=== PATIENT | male | born 1935 | race Caucasian/White ===

== ENCOUNTER 2016-11-03 12:45 | Inpatient (IN) | payer OTHER ==
[2016-11-03 12:57] VITALS: BMI 25.9
--- NOTE | 2016-11-03 13:12 | PDOC ---
History of Present Illness <Matthew Hawk - Last Filed: 11/03/16 16:28> - General History Source: Patient, Spouse Exam Limitations: No Limitations - History of Present Illness Initial Comments: 11/03/16 15:07 The patient is a 81 year old male, with a significant past medical history of hypertension, hyperlipidemia, IDDM, liver cancer(Chemo, 40% liver removed in 2008), CVA, CAD, Quadruple Bypass, and A-Fib(on Xarelto), who presents to the emergency department complaining of melena for approximately 1 week. The patient reports constipation for approximately 2 days. He reports taking a laxative with no relief. The patient reports his last bowel movement was this morning, which was black and tarry. The patient reports associated decrease in appetite, grogginess, and dizziness. 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 The patient reports he has stopped taking Xarelto during the past 2 days due to rectal bleeding. Patient states he was sent by his PCP, Dr. Borges, for a blood transfusion. He reports a history of a blood transfusion 2-3 years ago. The patient denies any abdominal pain, nausea, vomiting, hematochezia or diarrhea. The patient denies any dysuria, hematuria, frequency, or urgency. The patient denies any fever, chills, cough, or headache. The patient denies any recent travel or sick contacts. Allergies: None reported. Past Surgical History: Quadruple bypass, 40% Liver removal Social History: Non-smoker. Denies alcohol or drug use. PCP: Katerina <Harley Aldana - Last Filed: 11/03/16 17:10> - General Chief Complaint: Blood Transfusion Stated Complaint: (PCP SENT) TRANFUSION Time Seen by Provider: 11/03/16 13:10 Past History - Past Medical History Anemia: No Asthma: No Cancer: Yes (LIVER, CHEMO (PILLS)ABDOMEN) Cardiac Disorders: Yes (CAD; QUADRUP BYPASS; A-FIB) CVA: Yes (MINI TIMES ONE) COPD: No CHF: No Dementia: No Diabetes: Yes (IDDM) GI Disorders: No Disorders: No HTN: Yes Hypercholesterolemia: Yes Liver Disease: Yes (LIVER CA) Seizures: No Thyroid Disease: No - Surgical History Abdominal Surgery: Yes (40% LIVER REMOVED 2009, LYMPH NODE REMOVES FOR ABD 2 WKS AGO) Appendectomy: No Cardiac Surgery: Yes (QUADRUP. BYPASS) Cholecystectomy: Yes (NOT SURE) Lung Surgery: No Neurologic Surgery: No Orthopedic Surgery: No - Psycho/Social/Smoking Cessation Hx Anxiety: No Suicidal Ideation: No Smoking History: Never smoked Have you smoked in the past 12 months: No Information on smoking cessation initiated: No Hx Alcohol Use: No Drug/Substance Use Hx: No Substance Use Type: None Hx Substance Use Treatment: No <Matthew Hawk - Last Filed: 11/03/16 16:28> <Harley Aldana - Last Filed: 11/03/16 17:10> - Past Medical History Allergies/Adverse Reactions: Allergies Allergy/AdvReac Type Severity Reaction Status Date / Time No Known Drug Allergies Allergy Verified 11/03/16 12:54 Home Medications: Ambulatory Orders Carvedilol [Coreg -] 12.5 mg PO BID 11/03/16 Hydralazine HCl [Apresoline -] 10 mg PO BID 11/03/16 Insulin Aspart [Novolog] 8 unit SQ ACHS 11/03/16 Lantus (10mL VIAL) - 12 units SQ HS 11/03/16 Nitroglycerin Patch [Nitro-Dur] 0.4 mg TD DAILY 11/03/16 Olmesartan Medoxomil [Benicar (Nf)] 20 mg PO DAILY 11/03/16 Pantoprazole Sodium [Protonix] 40 mg PO DAILY 11/03/16 Rivaroxaban [Xarelto -] 15 mg PO DAILY 11/03/16 Simvastatin [Zocor] 10 mg PO HS 11/03/16 Review of Systems - Review of Systems Able to Perform ROS?: Yes Comments:: 11/03/16 15:08 GENERAL/CONSTITUTIONAL: Yes:+weakness. No fever or chills. HEAD, EYES, EARS, NOSE AND THROAT: No change in vision. No ear pain or discharge. No sore throat. CARDIOVASCULAR: No chest pain or shortness of breath. RESPIRATORY: No cough, wheezing, or hemoptysis. GASTROINTESTINAL: Yes: +constipation, +melena. No nausea, vomiting, or diarrhea. GENITOURINARY: No dysuria, frequency, or change in urination. MUSCULOSKELETAL: No joint or muscle swelling or pain. No neck or back pain. SKIN: No rash NEUROLOGIC: No headache, vertigo, loss of consciousness, or change in strength/ sensation. ENDOCRINE: No increased thirst. No abnormal weight change. HEMATOLOGIC/LYMPHATIC: No anemia or history of blood clots. ALLERGIC/IMMUNOLOGIC: No hives or skin allergy. <Aldana,Saraivadim - Last Filed: 11/03/16 17:10> *Physical Exam - Vital Signs Last Vital Signs Temp Pulse Resp BP Pulse Ox 98.5 F 58 L 19 136/57 98 11/03/16 12:54 11/03/16 12:54 11/03/16 12:54 11/03/16 12:54 11/03/16 12:54 <Matthew Hawk - Last Filed: 11/03/16 16:28> - Vital Signs Last Vital Signs Temp Pulse Resp BP Pulse Ox 98.5 F 58 L 19 136/57 98 11/03/16 12:54 11/03/16 12:54 11/03/16 12:54 11/03/16 12:54 11/03/16 12:54 - Physical Exam Comments: 11/03/16 15:09 GENERAL: Awake, alert, and fully oriented, in no acute distress HEAD: No signs of trauma EYES: PERRLA, EOMI, sclera anicteric, conjunctiva clear ENT: Auricles normal inspection, hearing grossly normal, nares patent, oropharynx clear without exudates. Moist mucosa NECK: Normal ROM, supple, no lymphadenopathy, JVD, or masses LUNGS: Breath sounds equal, clear to auscultation bilaterally. No wheezes, and no crackles HEART: Regular rate and rhythm, normal S1 and S2, no murmurs, rubs or gallops ABDOMEN: Soft, nontender, normoactive bowel sounds. No guarding, no rebound. No masses RECTUM: Was not done. EXTREMITIES: Normal range of motion, no edema. No clubbing or cyanosis. No cords, erythema, or tenderness NEUROLOGICAL: Cranial nerves II through XII grossly intact. Normal speech, normal gait SKIN: Warm, Dry, normal turgor, no rashes or lesions noted. <AldanaSaraivadim - Last Filed: 11/03/16 17:10> Heart Score/ECG Review - ECG Impressions Comment:: 11/03/16 15:10 Vent. Rate: 65 bpm IMPRESSION: Atrial Fibrillation. Incomplete left bundle branch block. Nonspecific ST and T wave abnormality. <Harley Aldana - Last Filed: 11/03/16 17:10> ED Treatment Course - LABORATORY CBC & Chemistry Diagram: 11/03/16 13:47 11/03/16 13:47 <Matthew Hawk - Last Filed: 11/03/16 16:28> - LABORATORY CBC & Chemistry Diagram: 11/03/16 13:47 11/03/16 13:47 - ADDITIONAL ORDERS Additional order review: Laboratory Results 11/03/16 11/03/16 13:47 13:47 INR 1.19 H Sodium 139 Potassium 4.8 Chloride 107 Carbon Dioxide 24 Anion Gap 8 BUN 50 H D Creatinine 2.0 H D Creat Clearance w eGFR 32.23 Random Glucose 191 H Calcium 8.4 L Total Bilirubin 0.8 D AST 17 D ALT 17 D Alkaline Phosphatase 78 Creatine Kinase 79 Troponin I 1.79 H* D Total Protein 5.4 L Albumin 3.1 L 11/03/16 13:47 RBC 2.45 L MCV 98.5 H MCHC 34.9 RDW 14.0 D MPV 9.3 Neutrophils % 57.7 Lymphocytes % 23.1 Monocytes % 10.3 H Eosinophils % 8.1 H Basophils % 0.8 - RADIOLOGY Radiograph Interpretation: 11/03/16 17:09 EXAM: CXR INTERPRETED BY: Dr. Feliciano REVIEWED BY: Dr. Hawk IMPRESSION: No evidence of pneumonia, CHF, pleural effusion, or pneumothorax. <Harley Aldana - Last Filed: 11/03/16 17:10> Medical Decision Making - Medical Decision Making 11/03/16 15:55 First call placed to Dr. Borges at 15:55. Awaiting call back. Case discussed with Dr. Borges at 16:25. Agreed to admit. <Harley Aldana - Last Filed: 11/03/16 17:10> *DC/Admit/Observation/Transfer - Discharge Dispostion Admit: Yes - Attestations Physician Attestion: 11/03/16 13:11 I, Dr. Matthew Hawk, attest that this document has been prepared under my direction and personally reviewed by me in its entirety. I further attest, that it accurately reflects all work, treatment, procedures and medical decision -making performed by me. <Matthew Hawk - Last Filed: 11/03/16 16:28> - Attestations Scribe Attestion: 11/03/16 15:10 Documentation prepared by Harley Aldana, acting as medical concierge for Matthew Hawk DO. <Harley Aldana - Last Filed: 11/03/16 17:10> Diagnosis at time of Disposition: Asymptomatic myocardial ischemia, Renal insufficiency syndrome GI bleed Qualifiers: GI bleed type/associated pathology: unspecified gastrointestinal hemorrhage type Qualified Code(s): K92.2 - Gastrointestinal hemorrhage, unspecified - Discharge Dispostion Condition at time of disposition: Unchanged/Unknown - Referrals Referrals: Idris Borges MD [Primary Care Provider] -
[2016-11-03 14:19] LABS: BASOPHIL 0.8 % (0-2.0); EOSINOPHIL 8.1 % (0-4.5); MCH 34.4 pg (25.7-33.7); MCHC 34.9 g/dl (32.0-35.9); MEAN CELL VOLUME 98.5 fl (80-96); MEAN PLT VOLUME 9.3 fl (7.5-11.1); NEUTROPHILS 57.7 % (42.8-82.8); PLATELET COUNT 115 K/MM3 (134-434); WHITE BLOOD COUNT 6.2 K/mm3 (4.0-10.0)
[2016-11-03 14:33] LABS: INR 1.19 (0.82-1.09); PROTHROMBIN TIME (PATIENT) 13.1 SEC (9.98-11.88)
[2016-11-03 14:38] LABS: ALBUMIN 3.1 g/dl (3.4-5.0); CALCIUM 8.4 mg/dL (8.5-10.1)
[2016-11-03 14:56] LABS: BILIRUBIN,TOTAL 0.8 mg/dL (0.2-1.0); COCKROFT - GAULT 28.9; TOT PROT 5.4 g/dl (6.4-8.2)
[2016-11-03 14:59] LABS: TROPONIN I 1.79 ng/ml (0.00-0.05)
[2016-11-03] MEDS ORDERED: ACETAMINOPHEN 325 MG TABLET (FP) PO PRN (23:04)
[2016-11-04 02:12] LABS: TROPONIN I 1.54 ng/ml (0.00-0.05)
[2016-11-04] MEDS: INSULIN SLIDING SCALE (NOVOLOG) 1 VIAL SQ SCH ×4 (06:02→20:59)
[2016-11-04 07:28] LABS: BASOPHIL 0.7 % (0-2.0); EOSINOPHIL 8.4 % (0-4.5); MCH 33.4 pg (25.7-33.7); MCHC 35.1 g/dl (32.0-35.9); MEAN CELL VOLUME 95.3 fl (80-96); MEAN PLT VOLUME 9.5 fl (7.5-11.1); NEUTROPHILS 54.4 % (42.8-82.8); PLATELET COUNT 94 K/MM3 (134-434); RDW 15.7 % (11.9-15.9); WHITE BLOOD COUNT 5.4 K/mm3 (4.0-10.0)
[2016-11-04 07:54] LABS: CALCIUM 7.8 mg/dL (8.5-10.1); COCKROFT - GAULT 30.5; CREATININE 1.9 mg/dL (0.7-1.3)
[2016-11-04 08:01] LABS: INR 1.2 (0.82-1.09); PROTHROMBIN TIME (PATIENT) 13.3 SEC (9.98-11.88)
[2016-11-04 08:14] LABS: BILIRUBIN,TOTAL 1.9 mg/dL (0.2-1.0); TOT PROT 5.3 g/dl (6.4-8.2)
[2016-11-04 08:33] LABS: TROPONIN I 0.92 ng/ml (0.00-0.05)
--- NOTE | 2016-11-04 09:05 | HP ---
Admitting History and Physical - Admission History of Present Illness: 81 year old male, with a significant past medical history of hypertension, hyperlipidemia, IDDM, liver cancer(Chemo, 40% liver removed in 2008), CVA, CAD, Quadruple Bypass, and A-Fib(on Xarelto), who presents to the emergency department complaining of melena for approximately 1 week. The patient reports constipation for approximately 2 days. He reports taking a laxative with no relief. The patient reports his last bowel movement was black and tarry. The patient reports associated decrease in appetite, grogginess, and dizziness.Pt was seen in office 2 days ago and he refused admission at which time I stopped Xarelto and bloods drawn--hgb 8.9 then he was sent for a blood transfusion. The patient denies any abdominal pain, nausea, vomiting, hematochezia or diarrhea. The patient denies any dysuria, hematuria, frequency, or urgency. The patient denies any fever, chills, cough, or headache. The patient denies any recent travel or sick contacts. - Past Medical History Cardiovascular: Yes: AFIB, CAD, CHF, HTN, Hyperlipdemia Gastrointestinal: Yes: Cancer (primary liver) Hepatobiliary: Yes: Other (primary liver cancer s/p resection and now recurr in lymph nodes on chemo (nexavar)) Renal/: Yes: Renal Inusuff Endocrine: Yes: Diabetes Mellitus (insulin dependent) - Past Surgical History Past Surgical History: Yes: CABG (partial liver resection) - Smoking History Smoking history: Never smoked Have you smoked in the past 12 months: No - Alcohol/Substance Use Hx Alcohol Use: No Home Medications - Allergies Allergies/Adverse Reactions: Allergies Allergy/AdvReac Type Severity Reaction Status Date / Time No Known Drug Allergies Allergy Verified 11/03/16 12:54 - Home Medications Home Medications: Ambulatory Orders Carvedilol [Coreg -] 12.5 mg PO BID 11/03/16 Hydralazine HCl [Apresoline -] 10 mg PO BID 11/03/16 Insulin Aspart [Novolog] 8 unit SQ ACHS 11/03/16 Lantus (10mL VIAL) - 12 units SQ HS 11/03/16 Nitroglycerin Patch [Nitro-Dur] 0.4 mg TD DAILY 11/03/16 Olmesartan Medoxomil [Benicar (Nf)] 20 mg PO DAILY 11/03/16 Pantoprazole Sodium [Protonix] 40 mg PO DAILY 11/03/16 Rivaroxaban [Xarelto -] 15 mg PO DAILY 11/03/16 Simvastatin [Zocor] 10 mg PO HS 11/03/16 Review of Systems - Review of Systems Constitutional: reports: Weakness Cardiovascular: denies: Chest Pain, Edema Respiratory: reports: SOB on Exertion Gastrointestinal: reports: Constipation, Melena. denies: Vomiting Physical Examination Vital Signs: Vital Signs Temperature 97.7 F 11/04/16 07:00 Pulse Rate 63 11/04/16 07:00 Respiratory Rate 20 11/04/16 07:00 Blood Pressure 158/60 11/04/16 07:00 O2 Sat by Pulse Oximetry (%) 98 11/03/16 23:04 Cardiovascular: Yes: S1, S2 Respiratory: Yes: Regular, CTA Bilaterally Gastrointestinal: Yes: Normal Bowel Sounds, Soft, Melena (HEM POSITIVE). No: Tenderness Labs: CBC, BMP 11/04/16 06:20 11/04/16 06:20 Problem List - Problems (1) Upper GI bleeding Assessment/Plan: OFF AC GI CONSULT PPI Code(s): K92.2 - GASTROINTESTINAL HEMORRHAGE, UNSPECIFIED (2) Asymptomatic myocardial ischemia Assessment/Plan: TROP TRENDING DOWN CARDIO Code(s): I25.6 - SILENT MYOCARDIAL ISCHEMIA (3) Renal insufficiency syndrome Assessment/Plan: MONITOR Code(s): N28.9 - DISORDER OF KIDNEY AND URETER, UNSPECIFIED (4) Anemia Assessment/Plan: S/P PRBC FOLLOW CBC Code(s): D64.9 - ANEMIA, UNSPECIFIED (5) Afib Assessment/Plan: HOLD AC Code(s): I48.91 - UNSPECIFIED ATRIAL FIBRILLATION
[2016-11-04] MEDS ORDERED: PANTOPRAZOLE 40 MG TABLET (FP) PO SCH ×2 (10:00→22:00)
[2016-11-04] MEDS: CARVEDILOL 12.5 MG TABLET (FP) PO SCH ×2 (10:46→20:59)
[2016-11-04] MEDS: hydrALAZINE HCL 10 MG TABLET PO SCH ×2 (10:46→20:59)
[2016-11-04] MEDS: VALSARTAN 160 MG TABLET (UD) PO SCH (10:46)
--- NOTE | 2016-11-04 12:54 | CON.CARD ---
Cardiology Consult (text) - Consultation Consultation Note: CC: melena 81 yo with h/o CAD s/p CABG, afib on xarelto (recently held for melena and anemia), CVA, hypertension, hyperlipidemia, IDDM, liver cancer(Chemo, 40% liver removed in 2008), who p/w melena for approximately 1 week. black and tarry stool. Associated decrease in appetite, grogginess, and dizziness. Stopped taking Xarelto during the past 2 days due to rectal bleeding. no cp, palps, sob, orthopnea, pnd, dizziness, transient neurologic symptoms. Le edema at baseline. does not recall having prior anginal symptoms. patient denies any abdominal pain, nausea, vomiting, fever, chills, sweats, cough, rashes, visual disturbances or headache. PMHx: per hpi Past Surgical History: Quadruple bypass, 40% Liver removal Social History: Never smoker. Denies alcohol or drug use. family hx: no premature cad. ROS: per hpi Ambulatory Orders Carvedilol [Coreg -] 12.5 mg PO BID 11/03/16 Hydralazine HCl [Apresoline -] 10 mg PO BID 11/03/16 Insulin Aspart [Novolog] 8 unit SQ ACHS 11/03/16 Lantus (10mL VIAL) - 12 units SQ 11/03/16 Nitroglycerin Patch [Nitro-Dur] 0.4 mg TD DAILY 11/03/16 Olmesartan Medoxomil [Benicar (Nf)] 20 mg PO DAILY 11/03/16 Pantoprazole Sodium [Protonix] 40 mg PO DAILY 11/03/16 Rivaroxaban [Xarelto -] 15 mg PO DAILY 11/03/16 Simvastatin [Zocor] 10 mg PO HS 11/03/16 Current Medications Acetaminophen (Tylenol -) 650 mg PO Q4H PRN PRN Reason: FEVER OR PAIN Atorvastatin Calcium (Lipitor -) 10 mg PO [facility] Carvedilol (Coreg -) 12.5 mg PO BID [facility] Last Admin: 11/04/16 10:46 Dose: 12.5 mg Hydralazine HCl (Apresoline -) 10 mg PO BID [facility] Last Admin: 11/04/16 10:46 Dose: 10 mg Insulin Aspart (Novolog Vial Sliding Scale -) 1 vial SQ ACHS [facility] PRN Reason: Protocol Last Admin: 11/04/16 12:00 Dose: 7 units Insulin Detemir (Levemir Vial) 12 units SQ HS [facility] Pantoprazole Sodium (Protonix -) 40 mg PO BID [facility] Valsartan (Diovan -) 160 mg PO DAILY [facility] Last Admin: 11/04/16 10:46 Dose: 160 mg Vital Signs - 24 hr 11/03/16 11/03/16 11/03/16 12:54 17:01 18:00 Temperature 98.5 F Pulse Rate 58 L Pulse Rate [ 63 78 Apical] Respiratory 19 20 20 Rate Blood Pressure 136/57 Blood Pressure 140/65 135/73 [Left Arm] O2 Sat by Pulse 98 100 100 Oximetry (%) 11/03/16 11/03/16 11/03/16 21:00 22:00 23:04 Temperature 98.1 F 97.5 F L Pulse Rate 63 63 Pulse Rate [ Apical] Respiratory 20 20 20 Rate Blood Pressure 133/52 136/51 Blood Pressure [Left Arm] O2 Sat by Pulse 98 98 Oximetry (%) 11/04/16 11/04/16 11/04/16 02:00 03:04 07:00 Temperature 97.3 F L 97.5 F L 97.7 F Pulse Rate 80 63 63 Pulse Rate [ Apical] Respiratory 20 20 20 Rate Blood Pressure 138/58 138/58 158/60 Blood Pressure [Left Arm] O2 Sat by Pulse Oximetry (%) 11/04/16 10:50 Temperature 97.9 F Pulse Rate 68 Pulse Rate [ Apical] Respiratory 20 Rate Blood Pressure 153/65 Blood Pressure [Left Arm] O2 Sat by Pulse Oximetry (%) Intake & Output 11/02/16 11/03/16 11/04/16 11/05/16 07:59 07:59 07:59 07:59 Intake Total 350 Balance 350 Weight 156 lb NAD, calm JVD flat, neck supple rrr nl s1, s2 2/6 murmur at apex ctab, nl effort + bs soft nt nd ext with trace-1+ edema no cyanosis, clubbing + dp/pt aao x3 no jaundice, diaphoresis CBC, BMP 11/04/16 06:20 11/04/16 06:20 Laboratory Tests 11/03/16 11/03/16 11/03/16 13:47 13:47 21:15 Hgb 8.4 L D INR Creatinine 2.0 H D Total Bilirubin 0.8 D AST 17 D ALT 17 D Alkaline Phosphatase 78 Creatine Kinase 79 Troponin I 1.79 H* D 2.29 H* Albumin 3.1 L Lipase 49 L 11/04/16 11/04/16 11/04/16 00:15 06:20 06:20 Hgb INR 1.20 H Creatinine Total Bilirubin 1.9 H D AST 19 ALT 17 Alkaline Phosphatase 75 Creatine Kinase 77 Troponin I 1.54 H* D 0.92 H* D Albumin Lipase EKG 11/03: sr with pac's. av delay. ivcd. non-specific t wave abnormalities, similar to prior (office) EKG 11/04: sr with pvc's and wenckebach rhythm. av delay. IVCD. lateral st segment sagging (new) tele: sr, pac's wenckebach. can't exclude intermittent afib. cxr: no acute infiltrates MIBI 07/05 (pers): no STs; small area apical isch and basal inferolateral wall; mild global LV hypo, EF 46% Echo 12/05: nl LV/EF; dd2; nl RV; mild-mod LAE; anter eccentric MR appears likely moderate, ? underestimated; peak E <120 (109), pulm vein inflow doppler TDS; hi LAP 81 yo with h/o CAD s/p CABG, afib on xarelto (recently held for melena and anemia), CVA, hypertension, hyperlipidemia, IDDM, liver cancer(Chemo, 40% liver removed in 2008), who p/w melena for approximately 1 week. GIB - h/o UGIB 2014, work up unrevealing at that time --> had continued renally dosed xarelto - now with recurrence and sx anemia. GI following. holding AC NSTEMI - here with NSTEMI in setting of anemia/GIB and h/o known CAD and medically managed low risk ischemia. Mild troponin elevation. Peak 2.29. CK not elevated. Subtle EKG changes. Patient remains asx. Will be getting transfusion. Current troponin elevation is most likely (but not definitively) demand due to underlying CAD in setting of anemia. Would not recommend treatment of nstemi (AC/antiplatelet) due to active bleed. - consider repeat echo and/or ischemic evaluation once acute issues are resolved. - CAD management as mentioned below. Pre-operative clearance - Based on RCRI, patient has a high risk of ginger-operative cardiovascular events. However endoscopy is a low risk procedure and is a necessary part of evaluation/management for his current GIB. He has known residual CAD disease and low risk areas of ischemia. Current troponin elevation is most likely (but not definitively) demand due to underlying disease in setting of anemia. Would not recommend treatment as nstemi due to active bleed. If possible would delay endoscopic procedures for 24-48 hours, but discussed with patient and GI consult regarding moving forward with procedure tomorrow if deemed necessary for management of GIB. pAFib - currently holding xarelto due to active bleed. - Rate controlled on coreg. CAD S/P CABG '05: GAN TO LAD, SVG SEQUENTIAL TO DIAG-->OM; SVG TO RPDA. - 07/05 NSTEMI LIKELY RELATED TO CHEMO AGENT, MIBI WITH SMALL TRIMMER HELPER ISCHEMIA AND SMALL APICAL ISCH (? DISTAL SOBOBA LAD DZ BEYOND GAN ANASTAMOSIS). --> low risk scans in past and has been managed with medical therapy. coreg, arb, ntg patch, statin. - currently coreg, arb initiated but not ntg patch. Patient without anginal sx' s. Will hold off on ntg patch for now in case patient has a larger bleed and drops pressures. chronic dchf - recently switched to chlorthalidone as outpatient. Patient with mild stable LE edema. appears euvolemic. Hold diuresis while GIB is worked up. mod MR - stable, no signs of decompensation. reasonable bp control. HTN - also with h/o sx (?syncope) orthostatic hypotension - recently lowered outpatient dose of olmesartan in setting of hyperkalemia and added chlorthalidone, in addition to hydralazine, olmesartan, coreg and ntg patch. - initated on hydralazine, arb and coreg. Holding ntg patch and chlorthalidone as mentioned above. 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 asx. con't statin, no asa b/c of gib CKD (bline 1.4-1.9) - at baseline, con't to monitor Hl - on simvastatin 5 mg as outpatient. on atorvastatin here
[2016-11-04 14:14] LABS: MCH 32.9 pg (25.7-33.7); MCHC 34.2 g/dl (32.0-35.9); MEAN CELL VOLUME 96.2 fl (80-96); MEAN PLT VOLUME 9.4 fl (7.5-11.1); PLATELET COUNT 101 K/MM3 (134-434); RDW 16.3 % (11.9-15.9); WHITE BLOOD COUNT 5.3 K/mm3 (4.0-10.0)
--- NOTE | 2016-11-04 15:57 | CON.GI ---
Consult - History of Present Illness History of Present Illness: 81 M with h/o CAD S/P CABG, AF on AC (Xarelto) metabolic syndrome with IDDM admitted with 1 week h/o black stools. Hgb 8.9 at PCP this past week.He has no abdominal pain. Trop 8.9 on admission and currently 9.3 after 1 unit prbc. - Past Medical History Cardio/Vascular: Yes: AFIB, CAD, CHF, HTN, Hyperlipdemia Gastrointestinal: Yes: Cancer (primary liver) Hepatobiliary: Yes: Other (primary liver cancer s/p resection and now recurr in lymph nodes on chemo (nexavar)) Renal/: Yes: Renal Inusuff Endocrine: Yes: Diabetes Mellitus (insulin dependent) - Past Surgical History Past Surgical History: Yes: CABG (partial liver resection) - Alcohol/Substance Use Hx Alcohol Use: No - Smoking History Smoking history: Never smoked Have you smoked in the past 12 months: No Home Medications - Allergies Allergies/Adverse Reactions: Allergies Allergy/AdvReac Type Severity Reaction Status Date / Time No Known Drug Allergies Allergy Verified 11/03/16 12:54 - Home Medications Home Medications: Ambulatory Orders Carvedilol [Coreg -] 12.5 mg PO BID 11/03/16 Hydralazine HCl [Apresoline -] 10 mg PO BID 11/03/16 Insulin Aspart [Novolog] 8 unit SQ ACHS 11/03/16 Lantus (10mL VIAL) - 12 units SQ HS 11/03/16 Nitroglycerin Patch [Nitro-Dur] 0.4 mg TD DAILY 11/03/16 Olmesartan Medoxomil [Benicar (Nf)] 20 mg PO DAILY 11/03/16 Pantoprazole Sodium [Protonix] 40 mg PO DAILY 11/03/16 Rivaroxaban [Xarelto -] 15 mg PO DAILY 11/03/16 Simvastatin [Zocor] 10 mg PO HS 11/03/16 Physical Exam-GI Vital Signs: Vital Signs Temperature 98.5 F 11/04/16 15:19 Pulse Rate 73 11/04/16 15:19 Respiratory Rate 20 11/04/16 15:19 Blood Pressure 134/50 11/04/16 15:19 O2 Sat by Pulse Oximetry (%) 98 11/04/16 10:50 Labs: CBC, BMP 11/04/16 13:30 11/04/16 06:20 INR, PTT INR 1.20 (0.82-1.09) H 11/04/16 06:20
--- NOTE | 2016-11-04 18:13 | EKG ---
Test Reason : Blood Pressure : / mmHG Vent. Rate : 070 BPM Atrial Rate : 070 BPM P-R Int : 000 ms QRS Dur : 126 ms QT Int : 412 ms P-R-T Axes : 000 -18 097 degrees QTc Int : 444 ms SINUS RHYTHM WITH 1ST DEGREE A-V BLOCK WITH PREMATURE ATRIAL COMPLEXES AND PREMATURE VENTRICULAR COMPLEXES NON-SPECIFIC INTRA-VENTRICULAR CONDUCTION BLOCK T WAVE ABNORMALITY, CONSIDER LATERAL ISCHEMIA ABNORMAL ECG WHEN COMPARED WITH ECG OF 03-NOV-2016 15:04, RHYTHM ABOVE CLINICAL CORRELATION IS RECOMMENDED Confirmed by FABIANA SOUZA, WILL ([id number]) on 11/04/2016 6:12:59 PM Referred By: Francie MURILLO Confirmed By:WILL JUNG MD
--- NOTE | 2016-11-04 18:21 | CON.GI ---
Consult Consult Specialty:: GI Referred by:: Dr Borges Reason for Consultation:: GI bleed - History of Present Illness Chief Complaint: melena History of Present Illness: 81 M with HTN, HLD, CVA, CAD, IDDM, liver cancer s/p liver resection in 2008, CABG, AF on AC (Xarelto) admitted with melena and anemia. - History Source History Provided By: Patient, Family Member, Medical Record Limitations to Obtaining History: No Limitations - Past Medical History Cardio/Vascular: Yes: AFIB, CAD, CHF, HTN, Hyperlipdemia Gastrointestinal: Yes: Cancer (primary liver) Hepatobiliary: Yes: Other (primary liver cancer s/p resection and now recurr in lymph nodes on chemo (nexavar)) Renal/: Yes: Renal Inusuff Endocrine: Yes: Diabetes Mellitus (insulin dependent) - Past Surgical History Past Surgical History: Yes: CABG (partial liver resection) - Alcohol/Substance Use Hx Alcohol Use: No - Smoking History Smoking history: Never smoked Have you smoked in the past 12 months: No Home Medications - Allergies Allergies/Adverse Reactions: Allergies Allergy/AdvReac Type Severity Reaction Status Date / Time No Known Drug Allergies Allergy Verified 11/03/16 12:54 - Home Medications Home Medications: Ambulatory Orders Carvedilol [Coreg -] 12.5 mg PO BID 11/03/16 Hydralazine HCl [Apresoline -] 10 mg PO BID 11/03/16 Insulin Aspart [Novolog] 8 unit SQ ACHS 11/03/16 Lantus (10mL VIAL) - 12 units SQ HS 11/03/16 Nitroglycerin Patch [Nitro-Dur] 0.4 mg TD DAILY 11/03/16 Olmesartan Medoxomil [Benicar (Nf)] 20 mg PO DAILY 11/03/16 Pantoprazole Sodium [Protonix] 40 mg PO DAILY 11/03/16 Rivaroxaban [Xarelto -] 15 mg PO DAILY 11/03/16 Simvastatin [Zocor] 10 mg PO HS 11/03/16 Physical Exam-GI Vital Signs: Vital Signs Temperature 98.5 F 11/04/16 15:19 Pulse Rate 73 11/04/16 15:19 Respiratory Rate 20 11/04/16 15:19 Blood Pressure 134/50 11/04/16 15:19 O2 Sat by Pulse Oximetry (%) 98 11/04/16 10:50 Constitutional: Yes: Well Nourished HENT: Yes: Normocephalic Neck: Yes: Supple Cardiovascular: Yes: Regular Rate and Rhythm Respiratory: Yes: CTA Bilaterally Gastrointestinal Inspection: Yes: WNL ...Auscultate: Yes: Normoactive Bowel Sounds ...Palpate: Yes: Soft. No: Tenderness Labs: CBC, BMP 11/04/16 13:30 11/04/16 06:20 INR, PTT INR 1.20 (0.82-1.09) H 11/04/16 06:20 Hepatic Panel Total Bilirubin 1.9 mg/dL (0.2-1.0) H D 11/04/16 06:20 AST 19 U/L (15-37) 11/04/16 06:20 ALT 17 U/L (12-78) 11/04/16 06:20 Alkaline Phosphatase 75 U/L (45-117) 11/04/16 06:20 Albumin 3.0 g/dl (3.4-5.0) L 11/04/16 06:20 Assessment/Plan Poss GIB Advised to call nurse with every BM guaiac stools Egd this admission-Discussed cardio clearance with Dr Neal as trops elevated. Does not appear to be ACS-no MB. Trops trending down-possibly demand ischemia. Will scope if necessary. Will re-evaluate in AM protonix drip NPO for now AC on hold
--- NOTE | 2016-11-04 18:31 | EKG ---
Test Reason : Blood Pressure : / mmHG Vent. Rate : 065 BPM Atrial Rate : 051 BPM P-R Int : 000 ms QRS Dur : 120 ms QT Int : 416 ms P-R-T Axes : 000 -19 092 degrees QTc Int : 432 ms SINUS RHYTHM WITH WITH 1ST DEGREE A-V BLOCK AND PREMATURE SUPRAVENTRICULAR COMPLEXES NON-SPECIFIC INTRA-VENTRICULAR CONDUCTION DELAY NONSPECIFIC ST AND T WAVE ABNORMALITY ABNORMAL ECG WHEN COMPARED WITH ECG OF 03-JUL-2014 11:18, NO SIGNIFICANT CHANGE WAS FOUND Confirmed by FABIANA SOUZA, WILL ([id number]) on 11/04/2016 6:30:42 PM Referred By: Confirmed By:WILL JUNG MD
[2016-11-04] MEDS ORDERED: INSULIN (NOVOLOG) ASPART 100 UNITS/ML 10ML VIAL ONE (20:47)
[2016-11-04] MEDS: INSULIN DETEMIR 100 UNITS/ML MDV SQ SCH (20:59)
[2016-11-04] MEDS: ATORVASTATIN CA 10 MG TABLET (FP) PO SCH (20:59)
[2016-11-04 21:04] LABS: MCH 32.5 pg (25.7-33.7); MCHC 33.7 g/dl (32.0-35.9); MEAN CELL VOLUME 96.6 fl (80-96); MEAN PLT VOLUME 9.9 fl (7.5-11.1); PLATELET COUNT 112 K/MM3 (134-434); RDW 15.9 % (11.9-15.9); WHITE BLOOD COUNT 5.6 K/mm3 (4.0-10.0)
[2016-11-04] MEDS: PANTOPRAZOLE SODIUM 80 MG in SODIUM CHLORIDE 100 ML IVPB SCH (22:52)
[2016-11-05] MEDS: PANTOPRAZOLE SODIUM 80 MG in SODIUM CHLORIDE 100 ML IVPB SCH ×3 (05:40→14:57)
[2016-11-05] MEDS: INSULIN SLIDING SCALE (NOVOLOG) 1 VIAL SQ SCH ×4 (06:31→23:00)
[2016-11-05 07:20] LABS: MCH 32.9 pg (25.7-33.7); MCHC 33.8 g/dl (32.0-35.9); MEAN CELL VOLUME 97.3 fl (80-96); PLATELET COUNT 114 K/MM3 (134-434); RDW 16.2 % (11.9-15.9); WHITE BLOOD COUNT 6.8 K/mm3 (4.0-10.0)
[2016-11-05 07:36] LABS: ALBUMIN 3.1 g/dl (3.4-5.0); CALCIUM 8.4 mg/dL (8.5-10.1)
[2016-11-05 07:42] LABS: COCKROFT - GAULT 35.33; CREATININE 1.7 mg/dL (0.7-1.3); TOT PROT 5.6 g/dl (6.4-8.2); TROPONIN I 0.45 ng/ml (0.00-0.05)
--- NOTE | 2016-11-05 09:44 | PN ---
Progress Note, Physician History of Present Illness: NO COMPLAINTS THIS AM - Current Medication List Current Medications: Active Medications Acetaminophen (Tylenol -) 650 mg PO Q4H PRN PRN Reason: FEVER OR PAIN Atorvastatin Calcium (Lipitor -) 10 mg PO HS [facility] Last Admin: 11/04/16 20:59 Dose: 10 mg Carvedilol (Coreg -) 12.5 mg PO BID [facility] Last Admin: 11/04/16 20:59 Dose: 12.5 mg Hydralazine HCl (Apresoline -) 10 mg PO BID [facility] Last Admin: 11/04/16 20:59 Dose: 10 mg Pantoprazole Sodium 80 mg/ (Sodium Chloride) 100 mls @ 10 mls/hr IVPB Q10H [facility] PRN Reason: 8 MG/HR Last Admin: 11/05/16 05:40 Dose: Not Given Insulin Aspart (Novolog Vial Sliding Scale -) 1 vial SQ ACHS [facility] PRN Reason: Protocol Last Admin: 11/05/16 06:31 Dose: Not Given Insulin Detemir (Levemir Vial) 12 units SQ [facility] Last Admin: 11/04/16 20:59 Dose: 12 units Valsartan (Diovan -) 160 mg PO DAILY [facility] Last Admin: 11/04/16 10:46 Dose: 160 mg - Objective Vital Signs: Vital Signs Temperature 98.5 F 11/05/16 06:00 Pulse Rate 64 11/05/16 06:00 Respiratory Rate 18 11/05/16 06:00 Blood Pressure 157/68 11/05/16 06:00 O2 Sat by Pulse Oximetry (%) 98 11/04/16 22:00 Cardiovascular: Yes: S1, S2 Respiratory: Yes: Regular, CTA Bilaterally Gastrointestinal: Yes: Normal Bowel Sounds, Soft Labs: CBC, BMP 11/05/16 06:15 11/05/16 06:15 INR, PTT INR 1.20 (0.82-1.09) H 11/04/16 06:20 Problem List - Problems (1) Upper GI bleeding Assessment/Plan: OFF AC GI CONSULT NOTED--FOR EGD PPI Code(s): K92.2 - GASTROINTESTINAL HEMORRHAGE, UNSPECIFIED (2) Asymptomatic myocardial ischemia Assessment/Plan: TROP TRENDING DOWN CARDIO Code(s): I25.6 - SILENT MYOCARDIAL ISCHEMIA (3) Renal insufficiency syndrome Assessment/Plan: MONITOR Code(s): N28.9 - DISORDER OF KIDNEY AND URETER, UNSPECIFIED (4) Anemia Assessment/Plan: S/P PRBC FOLLOW CBC Code(s): D64.9 - ANEMIA, UNSPECIFIED (5) Afib Assessment/Plan: HOLD AC Code(s): I48.91 - UNSPECIFIED ATRIAL FIBRILLATION
[2016-11-05] MEDS: hydrALAZINE HCL 10 MG TABLET PO SCH ×2 (09:55→23:00)
[2016-11-05] MEDS: CARVEDILOL 12.5 MG TABLET (FP) PO SCH ×2 (09:55→23:00)
[2016-11-05] MEDS: VALSARTAN 160 MG TABLET (UD) PO SCH (09:55)
[2016-11-05] MEDS: SODIUM CHLORIDE 0.45% 1,000 ML IV SCH (10:00)
--- NOTE | 2016-11-05 13:58 | PN ---
GI Progress Note Subjective: Up in chair with no complaints Currently in NSR. No CP or SOB. No new bleeding - Objective Vital Signs: Vital Signs Temperature 97.7 F 11/05/16 10:00 Pulse Rate 75 11/05/16 10:00 Respiratory Rate 19 11/05/16 10:00 Blood Pressure 107/59 11/05/16 10:00 O2 Sat by Pulse Oximetry (%) 98 11/04/16 22:00 Constitutional: Well Nourished, No Distress HENT: Yes: Normocephalic Neck: Yes: Supple Cardiovascular: Yes: Regular Rate and Rhythm Respiratory: Yes: CTA Bilaterally Gastrointestinal Inspection: Yes: WNL ...Auscultate: Yes: Normoactive Bowel Sounds ...Palpate: Yes: Soft. No: Tenderness Labs: CBC, BMP 11/05/16 06:15 11/05/16 06:15 INR, PTT INR 1.20 (0.82-1.09) H 11/04/16 06:20 Assessment/Plan No new bleeding guaiac stools Egd this admission-Discussed cardio clearance with Dr Neal as trops elevated. Does not appear to be ACS-no MB. Trops trending down-possibly demand ischemia. Will scope if necessary. Will defer at this time as trop 2.2 just a few days ago and there has been no new bleeding. protonix drip Clear liquid diet AC on hold-d/w Dr Borges
--- NOTE | 2016-11-05 18:12 | PN ---
Progress Note (short form) - Note Progress Note: CC: melena S: Feels well, no further bleeding. no cp, palps ,dizziness, sob. Current Medication List Current Medications: Active Medications Acetaminophen (Tylenol -) 650 mg PO Q4H PRN PRN Reason: FEVER OR PAIN Atorvastatin Calcium (Lipitor -) 10 mg PO HS [facility] Last Admin: 11/04/16 20:59 Dose: 10 mg Carvedilol (Coreg -) 12.5 mg PO BID [facility] Last Admin: 11/04/16 20:59 Dose: 12.5 mg Hydralazine HCl (Apresoline -) 10 mg PO BID [facility] Last Admin: 11/04/16 20:59 Dose: 10 mg Pantoprazole Sodium 80 mg/ (Sodium Chloride) 100 mls @ 10 mls/hr IVPB Q10H [facility] PRN Reason: 8 MG/HR Last Admin: 11/05/16 05:40 Dose: Not Given Insulin Aspart (Novolog Vial Sliding Scale -) 1 vial SQ ACHS [facility] PRN Reason: Protocol Last Admin: 11/05/16 06:31 Dose: Not Given Insulin Detemir (Levemir Vial) 12 units SQ HS [facility] Last Admin: 11/04/16 20:59 Dose: 12 units Valsartan (Diovan -) 160 mg PO DAILY [facility] Last Admin: 11/04/16 10:46 Dose: 160 mg Vital Signs - 24 hr 11/04/16 11/05/16 11/05/16 22:00 02:00 06:00 Temperature 97.6 F 97.9 F 98.5 F Pulse Rate 67 64 64 Respiratory 20 20 18 Rate Blood Pressure 154/75 169/70 157/68 O2 Sat by Pulse 98 Oximetry (%) 11/05/16 11/05/16 10:00 14:00 Temperature 97.7 F 97.6 F Pulse Rate 75 59 L Respiratory 19 18 Rate Blood Pressure 107/59 130/65 O2 Sat by Pulse Oximetry (%) Intake & Output 11/03/16 11/04/16 11/05/16 11/06/16 07:59 07:59 07:59 07:59 Intake Total 350 566 Output Total 500 Balance 350 66 Weight 156 lb 161 lb 9.6 oz NAD, calm JVD flat, neck supple rrr nl s1, s2 2/6 murmur at apex ctab, nl effort + bs soft nt nd ext with trace-1+ edema no cyanosis, clubbing + dp/pt aao x3 no jaundice, diaphoresis CBC, BMP 11/05/16 06:15 11/05/16 06:15 EKG 11/03: sr with pac's. av delay. ivcd. non-specific t wave abnormalities, similar to prior (office) EKG 11/04: sr with pvc's and wenckebach rhythm. av delay. IVCD. lateral st segment sagging (new) tele: sr, pac's, pvc's wenckebach. can't exclude intermittent afib. cxr: no acute infiltrates MIBI 07/05 (pers): no STs; small area apical isch and basal inferolateral wall; mild global LV hypo, EF 46% Echo 12/05: nl LV/EF; dd2; nl RV; mild-mod LAE; anter eccentric MR appears likely moderate, ? underestimated; peak E <120 (109), pulm vein inflow doppler TDS; hi LAP 81 yo with h/o CAD s/p CABG, afib on xarelto (recently held for melena and anemia), CVA, hypertension, hyperlipidemia, IDDM, liver cancer(Chemo, 40% liver removed in 2008), who p/w melena for approximately 1 week. GIB - h/o UGIB 2014, work up unrevealing at that time --> had continued renally dosed xarelto - now with recurrence and sx anemia s/p transfusion. GI following. holding AC - 11/05 no further bleeding. minimal bump in hgb after transfusion. no plan for egd today. NSTEMI - here with NSTEMI in setting of anemia/GIB and h/o known CAD and medically managed low risk ischemia. Mild troponin elevation. Peak 2.29. CK not elevated. Subtle EKG changes. Patient remains asx. Troponin elevation is most likely (but not definitively) demand due to underlying CAD in setting of anemia. Would not recommend treatment of nstemi (AC/antiplatelet) due to active bleed. - consider repeat echo and/or ischemic evaluation once acute issues are resolved. - CAD management as mentioned below. Pre-operative clearance - Based on RCRI, patient has a high risk of ginger-operative cardiovascular events. However endoscopy is a low risk procedure and is a necessary part of evaluation/management for his current GIB. He has known residual CAD disease and low risk areas of ischemia. Troponin elevation is most likely (but not definitively) demand due to underlying disease in setting of anemia. Would not recommend treatment as nstemi due to active bleed. If possible would delay endoscopic procedures for 24-48 hours, but discussed with patient and GI consult regarding moving forward with procedure if deemed necessary for management of GIB. pAFib - currently holding xarelto due to active bleed. - Rate controlled on coreg. CAD S/P CABG '05: GAN TO LAD, SVG SEQUENTIAL TO DIAG-->OM; SVG TO RPDA. - 07/05 NSTEMI LIKELY RELATED TO CHEMO AGENT, MIBI WITH SMALL BEAD INSPECTOR ISCHEMIA AND SMALL APICAL ISCH (? DISTAL [place] LAD DZ BEYOND GAN ANASTAMOSIS). --> low risk scans in past and has been managed with medical therapy. coreg, arb, ntg patch, statin. - coreg, arb initiated but not ntg patch. Patient without anginal sx's. Will hold off on ntg patch for now while bp labile chronic dchf - recently switched to chlorthalidone as outpatient. Patient with mild stable LE edema. appears euvolemic. Hold diuresis while GIB is worked up - 11/05: getting IVF. low bp noted earlier today. Monitor volume status closely. mod MR - stable, no signs of decompensation. reasonable bp control. HTN - also with h/o sx (?syncope) orthostatic hypotension - recently lowered outpatient dose of olmesartan in setting of hyperkalemia and added chlorthalidone, in addition to hydralazine, olmesartan, coreg and ntg patch. - initated on hydralazine, arb and coreg. Holding ntg patch and chlorthalidone as mentioned above. 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 asx. con't statin, no asa b/c of gib CKD (bline 1.4-1.9) - at baseline, con't to monitor Hl - on simvastatin 5 mg as outpatient. on atorvastatin here
[2016-11-05] MEDS: INSULIN DETEMIR 100 UNITS/ML MDV SQ SCH (23:00)
[2016-11-05] MEDS: ATORVASTATIN CA 10 MG TABLET (FP) PO SCH (23:00)
[2016-11-06] MEDS: PANTOPRAZOLE SODIUM 80 MG in SODIUM CHLORIDE 100 ML IVPB SCH ×3 (01:58→20:45)
[2016-11-06] MEDS: INSULIN SLIDING SCALE (NOVOLOG) 1 VIAL SQ SCH ×4 (06:49→22:38)
[2016-11-06 08:00] LABS: BASOPHIL 0.7 % (0-2.0); EOSINOPHIL 10.3 % (0-4.5); MCH 33.2 pg (25.7-33.7); MCHC 34.6 g/dl (32.0-35.9); MEAN PLT VOLUME 8.8 fl (7.5-11.1); NEUTROPHILS 51.5 % (42.8-82.8); PLATELET COUNT 104 K/MM3 (134-434); RDW 15.6 % (11.9-15.9); WHITE BLOOD COUNT 5.1 K/mm3 (4.0-10.0)
[2016-11-06 08:35] LABS: ALBUMIN 2.8 g/dl (3.4-5.0); CALCIUM 8.2 mg/dL (8.5-10.1)
[2016-11-06 08:40] LABS: BILIRUBIN,TOTAL 1.3 mg/dL (0.2-1.0); COCKROFT - GAULT 35.31; CREATININE 1.7 mg/dL (0.7-1.3); TOT PROT 4.8 g/dl (6.4-8.2)
[2016-11-06] MEDS ORDERED: FUROSEMIDE 40 MG/4 ML INJECTABLE VIAL IVPUSH SCH (08:58)
--- NOTE | 2016-11-06 09:01 | PN ---
Progress Note, Physician History of Present Illness: NO COMPLAINTS THIS AM - Current Medication List Current Medications: Active Medications Acetaminophen (Tylenol -) 650 mg PO Q4H PRN PRN Reason: FEVER OR PAIN Atorvastatin Calcium (Lipitor -) 10 mg PO HS [facility] Last Admin: 11/05/16 23:00 Dose: 10 mg Carvedilol (Coreg -) 12.5 mg PO BID [facility] Last Admin: 11/05/16 23:00 Dose: 12.5 mg Furosemide (Lasix Injection -) 40 mg IVPUSH ONCE ONE Stop: 11/06/16 08:59 Hydralazine HCl (Apresoline -) 10 mg PO BID [facility] Last Admin: 11/05/16 23:00 Dose: 10 mg Pantoprazole Sodium 80 mg/ (Sodium Chloride) 100 mls @ 10 mls/hr IVPB Q10H [facility] PRN Reason: 8 MG/HR Last Admin: 11/06/16 01:58 Dose: Not Given Sodium Chloride (1/2 Normal Saline) 1,000 mls @ 75 mls/hr IV ASDIR [facility] Last Admin: 11/05/16 10:00 Dose: 75 mls/hr Insulin Aspart (Novolog Vial Sliding Scale -) 1 vial SQ ACHS [facility] PRN Reason: Protocol Last Admin: 11/06/16 06:49 Dose: Not Given Insulin Detemir (Levemir Vial) 12 units SQ HS [facility] Last Admin: 11/05/16 23:00 Dose: 12 units Valsartan (Diovan -) 160 mg PO DAILY [facility] Last Admin: 11/05/16 09:55 Dose: 160 mg - Objective Vital Signs: Vital Signs Temperature 97.6 F 11/06/16 06:00 Pulse Rate 61 11/06/16 06:00 Respiratory Rate 20 11/06/16 06:00 Blood Pressure 119/43 11/06/16 06:00 O2 Sat by Pulse Oximetry (%) 98 11/05/16 22:00 Cardiovascular: Yes: Regular Rate and Rhythm Respiratory: Yes: Regular, CTA Bilaterally Gastrointestinal: Yes: Normal Bowel Sounds, Soft Labs: CBC, BMP 11/06/16 06:28 11/06/16 06:28 INR, PTT INR 1.20 (0.82-1.09) H 11/04/16 06:20 Problem List - Problems (1) Upper GI bleeding Assessment/Plan: OFF AC GI CONSULT NOTED--FOR EGD PPI TRANSFUSE PRBC Code(s): K92.2 - GASTROINTESTINAL HEMORRHAGE, UNSPECIFIED (2) Anemia Assessment/Plan: S/P PRBC--WILL GIVE 2 MORE UNITS FOLLOW CBC Code(s): D64.9 - ANEMIA, UNSPECIFIED (3) Asymptomatic myocardial ischemia Assessment/Plan: TROP TRENDING DOWN CARDIO NOTED SAME MEDS Code(s): I25.6 - SILENT MYOCARDIAL ISCHEMIA (4) Renal insufficiency syndrome Assessment/Plan: MONITOR Code(s): N28.9 - DISORDER OF KIDNEY AND URETER, UNSPECIFIED (5) Afib Assessment/Plan: HOLD AC Code(s): I48.91 - UNSPECIFIED ATRIAL FIBRILLATION
[2016-11-06] MEDS: VALSARTAN 160 MG TABLET (UD) PO SCH (09:53)
[2016-11-06] MEDS: SODIUM CHLORIDE 0.45% 1,000 ML IV SCH (09:53)
[2016-11-06] MEDS: hydrALAZINE HCL 10 MG TABLET PO SCH ×2 (09:53→22:37)
[2016-11-06] MEDS: CARVEDILOL 12.5 MG TABLET (FP) PO SCH ×2 (09:53→22:37)
[2016-11-06] MEDS ORDERED: INSULIN (NOVOLOG) ASPART 100 UNITS/ML 10ML VIAL ONE (17:57)
--- NOTE | 2016-11-06 19:00 | PN ---
Progress Note (short form) - Note Progress Note: CC: GIB/NSTEMI S: Le swelling slightly worse today. recurrence of black stool. no cp, palps, dizziness, sob. Current Medications Acetaminophen (Tylenol -) 650 mg PO Q4H PRN PRN Reason: FEVER OR PAIN Atorvastatin Calcium (Lipitor -) 10 mg PO HS [facility] Last Admin: 11/05/16 23:00 Dose: 10 mg Carvedilol (Coreg -) 12.5 mg PO BID [facility] Last Admin: 11/06/16 09:53 Dose: 12.5 mg Furosemide (Lasix Injection -) 40 mg IVPUSH EPIC [employer] [facility] Stop: 11/06/16 20:00 Last Admin: 11/06/16 17:35 Dose: 40 mg Hydralazine HCl (Apresoline -) 10 mg PO BID [facility] Last Admin: 11/06/16 09:53 Dose: 10 mg Pantoprazole Sodium 80 mg/ (Sodium Chloride) 100 mls @ 10 mls/hr IVPB Q10H [facility] PRN Reason: 8 MG/HR Last Admin: 11/06/16 09:54 Dose: 10 mls/hr Insulin Aspart (Novolog Vial Sliding Scale -) 1 vial SQ ACHS [facility] PRN Reason: Protocol Last Admin: 11/06/16 16:43 Dose: 5 units Insulin Detemir (Levemir Vial) 12 units SQ HS [facility] Last Admin: 11/05/16 23:00 Dose: 12 units Valsartan (Diovan -) 160 mg PO DAILY [facility] Last Admin: 11/06/16 09:53 Dose: 160 mg Vital Signs - 24 hr 11/05/16 11/06/16 11/06/16 22:00 02:00 06:00 Temperature 98.2 F 97.1 F L 97.6 F Pulse Rate 63 64 61 Respiratory 20 20 20 Rate Blood Pressure 158/64 122/59 119/43 O2 Sat by Pulse 98 Oximetry (%) 11/06/16 11/06/16 11/06/16 09:00 09:57 15:01 Temperature 97.9 F 97.3 F L Pulse Rate 67 61 Respiratory 20 21 20 Rate Blood Pressure 154/79 126/56 O2 Sat by Pulse 98 Oximetry (%) Intake & Output 11/04/16 11/05/16 11/06/16 11/07/16 07:59 07:59 07:59 07:59 Intake Total 452 740 2139 960 Output Total 500 420 Balance 350 66 846 960 Weight 156 lb 161 lb 9.6 oz 161 lb 8 oz NAD, calm JVD flat, neck supple rrr nl s1, s2 2/6 murmur at apex ctab, nl effort + bs soft nt nd ext with trace-1+ edema no cyanosis, clubbing + dp/pt aao x3 no jaundice, diaphoresis Laboratory Tests 11/05/16 11/05/16 11/06/16 06:15 06:15 06:28 Hgb 9.7 L 8.5 L D Total Bilirubin 1.0 D AST Albumin 11/06/16 06:28 Hgb Total Bilirubin 1.3 H D AST 14 L Albumin 2.8 L Laboratory Tests 11/06/16 06:28 Potassium 4.5 BUN 45 H Creatinine 1.7 H Albumin 2.8 L 81 yo with h/o CAD s/p CABG, afib on xarelto (recently held for melena and anemia), CVA, hypertension, hyperlipidemia, IDDM, liver cancer(Chemo, 40% liver removed in 2008), who p/w melena for approximately 1 week. GIB - h/o UGIB 2014, work up unrevealing at that time --> had continued renally dosed xarelto - now with recurrence and sx anemia s/p transfusion. GI following. holding AC - 11/05 no further bleeding. minimal bump in hgb after transfusion. no plan for egd today. - 11/06 recurrence of bleed. plan for egd tomorrow. NSTEMI - here with NSTEMI in setting of anemia/GIB and h/o known CAD and medically managed low risk ischemia. Mild troponin elevation. Peak 2.29. CK not elevated. Subtle EKG changes. Patient remains asx. Troponin elevation is most likely (but not definitively) demand due to underlying CAD in setting of anemia. Would not recommend treatment of nstemi (AC/antiplatelet) due to active bleed. - consider repeat echo and/or ischemic evaluation once acute issues are resolved. - CAD management as mentioned below. Pre-operative clearance - Based on RCRI, patient has a high risk of ginger-operative cardiovascular events. However endoscopy is a low risk procedure and is a necessary part of evaluation/management for his current/active GIB. He has known residual CAD disease and low risk areas of ischemia. Troponin elevation is most likely (but not definitively) demand due to underlying disease in setting of anemia. Would not recommend treatment as nstemi due to active bleed. Trop caity was on 11/03. Has plan for EGD tomorrow. Close ginger-operative monitoring. Limit IVF when possible. pAFib - currently holding xarelto due to active bleed. - Rate controlled on coreg. CAD S/P CABG '05: GAN TO LAD, SVG SEQUENTIAL TO DIAG-->OM; SVG TO RPDA. - 07/05 NSTEMI LIKELY RELATED TO CHEMO AGENT, MIBI WITH SMALL SPRAY BLENDER ISCHEMIA AND SMALL APICAL ISCH (? DISTAL [place] LAD DZ BEYOND GAN ANASTAMOSIS). --> low risk scans in past and has been managed with medical therapy. coreg, arb, ntg patch, statin. - coreg, arb initiated but not ntg patch. Patient without anginal sx's. Will hold off on ntg patch for now while bp labile chronic dchf - recently switched to chlorthalidone as outpatient. Patient with mild stable LE edema. appears euvolemic. Hold diuresis while GIB is worked up - 11/05: getting IVF. low bp noted earlier today. Monitor volume status closely. - 11/06: LE edema slightly worse today. Received one dose of IV lasix this afternoon. mod MR - stable, no signs of decompensation. reasonable bp control. HTN - also with h/o sx (?syncope) orthostatic hypotension - recently lowered outpatient dose of olmesartan in setting of hyperkalemia and added chlorthalidone, in addition to hydralazine, olmesartan, coreg and ntg patch. - initated on hydralazine, arb and coreg. Holding ntg patch and chlorthalidone as mentioned above. 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 asx. con't statin, no asa b/c of gib CKD (bline 1.4-1.9) - at baseline, con't to monitor Hl - on simvastatin 5 mg as outpatient. on atorvastatin here
--- NOTE | 2016-11-06 19:11 | PN ---
GI Progress Note Subjective: patient as an outpatient is on xerelto. he continues to have melena x2 today, he denies nausea,vomiting, abdominal pain. He denies chest pain and SOB - Objective Vital Signs: Vital Signs Temperature 97.3 F L 11/06/16 15:01 Pulse Rate 61 11/06/16 15:01 Respiratory Rate 20 11/06/16 15:01 Blood Pressure 126/56 11/06/16 15:01 O2 Sat by Pulse Oximetry (%) 98 11/06/16 09:00 Constitutional: Well Nourished Eyes: Yes: Conjunctiva Clear HENT: Yes: Atraumatic Neck: Yes: Supple Cardiovascular: Yes: Regular Rate and Rhythm Respiratory: Yes: CTA Bilaterally ...Palpate: Yes: Soft. No: Firm/Rigid, Guarding, Hepatomegaly, Mass, Pulsatile Mass, Splenomegaly, Tenderness Labs: CBC, BMP 11/06/16 06:28 11/06/16 06:28 INR, PTT INR 1.20 (0.82-1.09) H 11/04/16 06:20 Problem List - Problems (1) GI bleed Assessment/Plan: R> for EGD , hisotry of liver cancer Code(s): K92.2 - GASTROINTESTINAL HEMORRHAGE, UNSPECIFIED Qualifiers: GI bleed type/associated pathology: unspecified gastrointestinal hemorrhage type Qualified Code(s): K92.2 - Gastrointestinal hemorrhage, unspecified
[2016-11-06] MEDS: INSULIN DETEMIR 100 UNITS/ML MDV SQ SCH (22:37)
[2016-11-06] MEDS: ATORVASTATIN CA 10 MG TABLET (FP) PO SCH (22:37)
[2016-11-07] MEDS: INSULIN SLIDING SCALE (NOVOLOG) 1 VIAL SQ SCH ×4 (06:11→22:07)
[2016-11-07] MEDS: PANTOPRAZOLE SODIUM 80 MG in SODIUM CHLORIDE 100 ML IVPB SCH ×3 (06:15→18:03)
--- NOTE | 2016-11-07 08:27 | PN ---
Progress Note, Physician History of Present Illness: NO COMPLAINTS THIS AM - Current Medication List Current Medications: Active Medications Acetaminophen (Tylenol -) 650 mg PO Q4H PRN PRN Reason: FEVER OR PAIN Atorvastatin Calcium (Lipitor -) 10 mg PO HS [facility] Last Admin: 11/06/16 22:37 Dose: 10 mg Carvedilol (Coreg -) 12.5 mg PO BID [facility] Last Admin: 11/06/16 22:37 Dose: 12.5 mg Hydralazine HCl (Apresoline -) 10 mg PO BID [facility] Last Admin: 11/06/16 22:37 Dose: 10 mg Pantoprazole Sodium 80 mg/ (Sodium Chloride) 100 mls @ 10 mls/hr IVPB Q10H [facility] PRN Reason: 8 MG/HR Last Admin: 11/07/16 06:15 Dose: 10 mls/hr Insulin Aspart (Novolog Vial Sliding Scale -) 1 vial SQ ACHS [facility] PRN Reason: Protocol Last Admin: 11/07/16 06:11 Dose: Not Given Insulin Detemir (Levemir Vial) 12 units SQ [facility] Last Admin: 11/06/16 22:37 Dose: Not Given Valsartan (Diovan -) 160 mg PO DAILY [facility] Last Admin: 11/06/16 09:53 Dose: 160 mg - Objective Vital Signs: Vital Signs Temperature 97.5 F L 11/07/16 06:00 Pulse Rate 62 11/07/16 06:00 Respiratory Rate 18 11/07/16 06:00 Blood Pressure 162/57 11/07/16 06:00 O2 Sat by Pulse Oximetry (%) 99 11/06/16 22:00 Cardiovascular: Yes: S1, S2 Respiratory: Yes: Regular, CTA Bilaterally Gastrointestinal: Yes: Normal Bowel Sounds, Soft. No: Tenderness Labs: CBC, BMP 11/06/16 06:28 11/06/16 06:28 INR, PTT INR 1.20 (0.82-1.09) H 11/04/16 06:20 Problem List - Problems (1) Upper GI bleeding Assessment/Plan: OFF AC GI CONSULT NOTED--FOR EGD PPI S/P TRANSFUSION OF PRBC AWAIT LABS Code(s): K92.2 - GASTROINTESTINAL HEMORRHAGE, UNSPECIFIED (2) Anemia Assessment/Plan: S/P PRBC--WILL GIVE 2 MORE UNITS FOLLOW CBC Code(s): D64.9 - ANEMIA, UNSPECIFIED (3) Asymptomatic myocardial ischemia Assessment/Plan: TROP TRENDING DOWN CARDIO NOTED SAME MEDS Code(s): I25.6 - SILENT MYOCARDIAL ISCHEMIA (4) Renal insufficiency syndrome Assessment/Plan: MONITOR Code(s): N28.9 - DISORDER OF KIDNEY AND URETER, UNSPECIFIED (5) Afib Assessment/Plan: HOLD AC Code(s): I48.91 - UNSPECIFIED ATRIAL FIBRILLATION
[2016-11-07 09:39] LABS: BASOPHIL 0.7 % (0-2.0); EOSINOPHIL 8.7 % (0-4.5); MCH 32.6 pg (25.7-33.7); MCHC 35.2 g/dl (32.0-35.9); MEAN CELL VOLUME 92.6 fl (80-96); MEAN PLT VOLUME 9.1 fl (7.5-11.1); NEUTROPHILS 52.9 % (42.8-82.8); PLATELET COUNT 90 K/MM3 (134-434); RDW 15.3 % (11.9-15.9); WHITE BLOOD COUNT 4.9 K/mm3 (4.0-10.0)
[2016-11-07 10:00] LABS: ALBUMIN 3.5 g/dl (3.4-5.0); BILIRUBIN,TOTAL 3.4 mg/dL (0.2-1.0); CALCIUM 8.6 mg/dL (8.5-10.1); COCKROFT - GAULT 31.59; CREATININE 1.9 mg/dL (0.7-1.3); TOT PROT 6.2 g/dl (6.4-8.2)
[2016-11-07] MEDS: CARVEDILOL 12.5 MG TABLET (FP) PO SCH ×2 (10:12→22:05)
[2016-11-07] MEDS: hydrALAZINE HCL 10 MG TABLET PO SCH ×2 (10:12→22:05)
[2016-11-07] MEDS: VALSARTAN 160 MG TABLET (UD) PO SCH (10:12)
[2016-11-07 10:18] LABS: TROPONIN I 0.23 ng/ml (0.00-0.05)
[2016-11-07] MEDS ORDERED: SODIUM PHOSPHATE/NA BIPHOS 133 ML ENEMA PR SCH (11:00)
[2016-11-07] MEDS ORDERED: INSULIN (NOVOLOG) ASPART 100 UNITS/ML 10ML VIAL ONE (11:49)
--- NOTE | 2016-11-07 12:12 | PN ---
Progress Note (short form) - Note Progress Note: CC: melena S: no events overnight. no cp, palps, dizziness, sob. plan for egd today Current Medications Acetaminophen (Tylenol -) 650 mg PO Q4H PRN PRN Reason: FEVER OR PAIN Atorvastatin Calcium (Lipitor -) 10 mg PO HS [facility] Last Admin: 11/06/16 22:37 Dose: 10 mg Carvedilol (Coreg -) 12.5 mg PO BID [facility] Last Admin: 11/07/16 10:12 Dose: 12.5 mg Hydralazine HCl (Apresoline -) 10 mg PO BID [facility] Last Admin: 11/07/16 10:12 Dose: Not Given Pantoprazole Sodium 80 mg/ (Sodium Chloride) 100 mls @ 10 mls/hr IVPB Q10H [facility] PRN Reason: 8 MG/HR Last Admin: 11/07/16 10:12 Dose: 10 mls/hr Insulin Aspart (Novolog Vial Sliding Scale -) 1 vial SQ ACHS [facility] PRN Reason: Protocol Last Admin: 11/07/16 06:11 Dose: Not Given Insulin Detemir (Levemir Vial) 12 units SQ [facility] Last Admin: 11/06/16 22:37 Dose: Not Given Valsartan (Diovan -) 160 mg PO DAILY [facility] Last Admin: 11/07/16 10:12 Dose: Not Given Vital Signs - 24 hr 11/06/16 11/06/16 11/07/16 15:01 22:00 02:00 Temperature 97.3 F L 97.6 F 97.3 F L Pulse Rate 61 65 58 L Respiratory 20 18 20 Rate Blood Pressure 126/56 168/68 103/50 O2 Sat by Pulse 99 Oximetry (%) 11/07/16 06:00 Temperature 97.5 F L Pulse Rate 62 Respiratory 18 Rate Blood Pressure 162/57 O2 Sat by Pulse Oximetry (%) Intake & Output 11/05/16 11/06/16 11/07/16 11/08/16 07:59 07:59 07:59 07:59 Intake Total 566 1266 1670 Output Total 500 420 Balance 66 846 1670 Weight 161 lb 9.6 oz 161 lb 8 oz NAD, calm JVD flat, neck supple rrr nl s1, s2 2/6 murmur at apex ctab, nl effort + bs soft nt nd ext with trace-1+ edema no cyanosis, clubbing + dp/pt aao x3 no jaundice, diaphoresis CBC, BMP 11/07/16 06:00 11/07/16 09:21 Laboratory Tests 11/07/16 09:21 Total Bilirubin 3.4 H D AST 26 D ALT 21 D Alkaline Phosphatase 104 D EKG 11/03: sr with pac's. av delay. ivcd. non-specific t wave abnormalities, similar to prior (office) EKG 11/04: sr with pvc's and wenckebach rhythm. av delay. IVCD. lateral st segment sagging (new) tele: sr, pac's, pvc's wenckebach. episode of intermittent aflutter/atach. cxr: no acute infiltrates MIBI 07/05 (pers): no STs; small area apical isch and basal inferolateral wall; mild global LV hypo, EF 46% Echo 12/05: nl LV/EF; dd2; nl RV; mild-mod LAE; anter eccentric MR appears likely moderate, ? underestimated; peak E <120 (109), pulm vein inflow doppler TDS; hi LAP 81 yo with h/o CAD s/p CABG, afib on xarelto (recently held for melena and anemia), CVA, hypertension, hyperlipidemia, IDDM, liver cancer(Chemo, 40% liver removed in 2008), who p/w melena for approximately 1 week. GIB - h/o UGIB 2014, work up unrevealing at that time --> had continued renally dosed xarelto - now with recurrence and sx anemia s/p transfusion. GI following. holding AC - 11/05 no further bleeding. minimal bump in hgb after transfusion. no plan for egd today. - 11/06 recurrence of bleed. s/p transfusion and dose of lasix. - 11/07 EGD this afternoon NSTEMI - here with NSTEMI in setting of anemia/GIB and h/o known CAD and medically managed low risk ischemia. Mild troponin elevation. Peak 2.29. CK not elevated. Subtle EKG changes. Patient remains asx. Troponin elevation is most likely (but not definitively) demand due to underlying CAD in setting of anemia. Would not recommend treatment of nstemi (AC/antiplatelet) due to active bleed. On low dose statin and bb. - consider repeat echo and/or ischemic evaluation once acute issues are resolved. - CAD management as mentioned below. Pre-operative clearance - Based on RCRI, patient has a high risk of ginger-operative cardiovascular events. However endoscopy is a low risk procedure and is a necessary part of evaluation/management for his current/active GIB. He has known residual CAD disease and low risk areas of ischemia. Troponin elevation is most likely (but not definitively) demand due to underlying disease in setting of anemia. Would not recommend treatment as nstemi due to active bleed. Trop peak was on 11/03. Has plan for EGD today. Close ginger-operative monitoring. Limit IVF when possible. pAFib - currently holding xarelto due to active bleed. - Rate controlled on coreg. CAD S/P CABG '05: GAN TO LAD, SVG SEQUENTIAL TO DIAG-->OM; SVG TO RPDA. - 07/05 NSTEMI LIKELY RELATED TO CHEMO AGENT, MIBI WITH SMALL [employer] ISCHEMIA AND SMALL APICAL ISCH (? DISTAL [place] LAD DZ BEYOND GAN ANASTAMOSIS). --> low risk scans in past and has been managed with medical therapy. coreg, arb, ntg patch, statin. - coreg, arb initiated but not ntg patch. Patient without anginal sx's. Will hold off on ntg patch for now while bp labile - anemia mgm't per gi, pmd chronic dchf - recently switched to chlorthalidone as outpatient. Patient with mild stable LE edema. appears euvolemic. Hold diuresis while GIB is worked up - 11/05: getting IVF. low bp noted earlier today. Monitor volume status closely. - 11/06: LE edema slightly worse today. Received one dose of IV lasix - 11/07: volume status stable, for EGD today. Reassess volume status tomorrow. . mod MR - stable, no signs of decompensation. reasonable bp control. HTN - also with h/o sx (?syncope) orthostatic hypotension - recently lowered outpatient dose of olmesartan in setting of hyperkalemia and added chlorthalidone, in addition to hydralazine, olmesartan, coreg and ntg patch. - initated on hydralazine, arb and coreg. Holding ntg patch and chlorthalidone as mentioned above. 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 asx. con't statin, no asa b/c of gib CKD (bline 1.4-1.9) - at baseline, con't to monitor Hl - on simvastatin 5 mg as outpatient. on atorvastatin here. bilirubin bumped today, con't to monitor.
[2016-11-07] MEDS ORDERED: LIDOCAINE HCL/PF 2% SDV 5ML VIAL ONE (14:34)
[2016-11-07] MEDS ORDERED: PROPOFOL 20 ML ONE ×2 (14:34)
[2016-11-07] MEDS ORDERED: POLYETHYLENE GLYCOL 3350 255 GM BTL PO ONE (15:03)
[2016-11-07] MEDS ORDERED: BISACODYL 5 MG TABLET.DR (FP) PO ONE (18:04)
[2016-11-07] MEDS: ATORVASTATIN CA 10 MG TABLET (FP) PO SCH (22:05)
[2016-11-07] MEDS: INSULIN DETEMIR 100 UNITS/ML MDV SQ SCH (22:05)
[2016-11-08] MEDS: PANTOPRAZOLE SODIUM 80 MG in SODIUM CHLORIDE 100 ML IVPB SCH ×2 (03:52→11:46)
[2016-11-08] MEDS: INSULIN SLIDING SCALE (NOVOLOG) 1 VIAL SQ SCH ×4 (06:12→22:08)
[2016-11-08] MEDS: VALSARTAN 160 MG TABLET (UD) PO SCH (09:35)
[2016-11-08] MEDS: CARVEDILOL 12.5 MG TABLET (FP) PO SCH ×2 (09:35→22:07)
[2016-11-08] MEDS: hydrALAZINE HCL 10 MG TABLET PO SCH ×2 (09:35→22:07)
--- NOTE | 2016-11-08 10:44 | PN ---
Progress Note, Physician History of Present Illness: NO COMPLAINTS THIS AM - Current Medication List Current Medications: Active Medications Acetaminophen (Tylenol -) 650 mg PO Q4H PRN PRN Reason: FEVER OR PAIN Atorvastatin Calcium (Lipitor -) 10 mg PO HS [facility] Last Admin: 11/07/16 22:05 Dose: 10 mg Carvedilol (Coreg -) 12.5 mg PO BID [facility] Last Admin: 11/08/16 09:35 Dose: 12.5 mg Hydralazine HCl (Apresoline -) 10 mg PO BID [facility] Last Admin: 11/08/16 09:35 Dose: 10 mg Pantoprazole Sodium 80 mg/ (Sodium Chloride) 100 mls @ 10 mls/hr IVPB Q10H [facility] PRN Reason: 8 MG/HR Last Admin: 11/08/16 03:52 Dose: 10 mls/hr Insulin Aspart (Novolog Vial Sliding Scale -) 1 vial SQ ACHS [facility] PRN Reason: Protocol Last Admin: 11/08/16 06:12 Dose: Not Given Insulin Detemir (Levemir Vial) 12 units SQ HS [facility] Last Admin: 11/07/16 22:05 Dose: 12 units Sodium Phosphate (Fleet Adult Rectal Enema -) 133 ml DC Q5M [facility] Stop: 11/08/16 11:06 Valsartan (Diovan -) 160 mg PO DAILY [facility] Last Admin: 11/08/16 09:35 Dose: 160 mg - Objective Vital Signs: Vital Signs Temperature 97.3 F L 11/08/16 09:32 Pulse Rate 73 11/08/16 09:32 Respiratory Rate 18 11/08/16 09:32 Blood Pressure 189/83 11/08/16 09:32 O2 Sat by Pulse Oximetry (%) 100 11/07/16 21:00 Cardiovascular: Yes: S1 Respiratory: Yes: Regular, CTA Bilaterally Gastrointestinal: Yes: Normal Bowel Sounds, Soft Labs: INR, PTT INR 1.20 (0.82-1.09) H 11/04/16 06:20 Problem List - Problems (1) Upper GI bleeding Assessment/Plan: OFF AC GI CONSULT NOTED--FOR EGD--NO ACTIVE BLEEDING PPI S/P TRANSFUSION OF PRBC AWAIT LABS Code(s): K92.2 - GASTROINTESTINAL HEMORRHAGE, UNSPECIFIED (2) Anemia Assessment/Plan: S/P PRBC--WILL GIVE 2 MORE UNITS FOLLOW CBC FOR COLONOSCOPY Code(s): D64.9 - ANEMIA, UNSPECIFIED (3) Asymptomatic myocardial ischemia Assessment/Plan: TROP TRENDING DOWN CARDIO NOTED SAME MEDS Code(s): I25.6 - SILENT MYOCARDIAL ISCHEMIA (4) Renal insufficiency syndrome Assessment/Plan: MONITOR Code(s): N28.9 - DISORDER OF KIDNEY AND URETER, UNSPECIFIED (5) Afib Assessment/Plan: HOLD AC Code(s): I48.91 - UNSPECIFIED ATRIAL FIBRILLATION
[2016-11-08 10:45] LABS: BASOPHIL 0.7 % (0-2.0); EOSINOPHIL 6.4 % (0-4.5); MCH 32.4 pg (25.7-33.7); MCHC 34.6 g/dl (32.0-35.9); MEAN CELL VOLUME 93.7 fl (80-96); PLATELET COUNT 107 K/MM3 (134-434); RDW 14.8 % (11.9-15.9)
--- NOTE | 2016-11-08 11:01 | PN ---
Progress Note (short form) - Note Progress Note: S: no cp, palps, dizziness, sob. plan for foc today Current Medications Generic Name Dose Route Start Last Admin Trade Name Freq PRN Reason Stop Dose Admin Acetaminophen 650 mg 11/03/16 23:04 Tylenol - PO Q4H PRN FEVER OR PAIN Atorvastatin Calcium 10 mg 11/04/16 22:00 11/07/16 22:05 Lipitor - PO 10 mg HS [facility] Administration Carvedilol 12.5 mg 11/04/16 10:00 11/08/16 09:35 Coreg - PO 12.5 mg BID [facility] Administration Hydralazine HCl 10 mg 11/04/16 10:00 11/08/16 09:35 Apresoline - PO 10 mg BID [facility] Administration Pantoprazole Sodium 80 mg/ 100 mls @ 10 mls/hr 11/04/16 18:45 11/08/16 03:52 Sodium Chloride IVPB 10 mls/hr Q10H [facility] Administration 8 MG/HR Insulin Aspart 1 vial 11/04/16 07:00 11/08/16 06:12 Novolog Vial Sliding Scale - SQ Not Given ACHS [facility] Protocol Insulin Detemir 12 units 11/04/16 22:00 11/07/16 22:05 Levemir Vial SQ 12 units HS [facility] Administration Sodium Phosphate 133 ml 11/08/16 11:00 Fleet Adult Rectal Enema - CT 11/08/16 11:06 Q5M [facility] Valsartan 160 mg 11/04/16 10:00 11/08/16 09:35 Diovan - PO 160 mg DAILY [facility] Administration Vital Signs Period Temp Pulse Resp BP Sys/Gregory Pulse Ox Last 24 Hr 97.3 F-98.6 F 60-100 16-18 125-189/32-83 98-100 NAD, calm JVD flat, neck supple rrr nl s1, s2 2/6 murmur at apex ctab, nl effort + bs soft nt nd no le e/c/c aao x3 no jaundice, diaphoresis Laboratory Last Values WBC 4.9 K/mm3 (4.0-10.0) 11/07/16 06:00 RBC 3.51 M/mm3 (4.00-5.60) L D 11/07/16 06:00 Hgb 11.4 GM/dL (11.7-16.9) L D 11/07/16 06:00 Hct 32.5 % (35.4-49) L D 11/07/16 06:00 MCV 92.6 fl (80-96) 11/07/16 06:00 MCHC 35.2 g/dl (32.0-35.9) 11/07/16 06:00 RDW 15.3 % (11.9-15.9) 11/07/16 06:00 Plt Count 90 K/MM3 (134-434) L 11/07/16 06:00 MPV 9.1 fl (7.5-11.1) 11/07/16 06:00 Neutrophils % 52.9 % (42.8-82.8) 11/07/16 06:00 Lymphocytes % 26.4 % (8-40) 11/07/16 06:00 Monocytes % 11.3 % (3.8-10.2) H 11/07/16 06:00 Eosinophils % 8.7 % (0-4.5) H 11/07/16 06:00 Basophils % 0.7 % (0-2.0) 11/07/16 06:00 INR 1.20 (0.82-1.09) H 11/04/16 06:20 Sodium 140 mmol/L (136-145) 11/07/16 09:21 Potassium 4.5 mmol/L (3.5-5.1) 11/07/16 09:21 Chloride 107 mmol/L (98-107) 11/07/16 09:21 Carbon Dioxide 26 mmol/L (21-32) 11/07/16 09:21 Anion Gap 7 (8-16) L 11/07/16 09:21 BUN 37 mg/dL (7-18) H 11/07/16 09:21 Creatinine 1.9 mg/dL (0.7-1.3) H 11/07/16 09:21 Creat Clearance w eGFR 34.19 (>60) 11/07/16 09:21 POC Glucometer 124 UNITS (()) 11/08/16 05:42 Random Glucose 201 mg/dL (74-106) H D 11/07/16 09:21 Calcium 8.6 mg/dL (8.5-10.1) 11/07/16 09:21 Total Bilirubin 3.4 mg/dL (0.2-1.0) H D 11/07/16 09:21 AST 26 U/L (15-37) D 11/07/16 09:21 ALT 21 U/L (12-78) D 11/07/16 09:21 Alkaline Phosphatase 104 U/L (45-117) D 11/07/16 09:21 Creatine Kinase 136 IU/L (39-308) 11/07/16 09:21 Troponin I 0.23 ng/ml (0.00-0.05) H D 11/07/16 09:21 Total Protein 6.2 g/dl (6.4-8.2) L D 11/07/16 09:21 Albumin 3.5 g/dl (3.4-5.0) D 11/07/16 09:21 Lipase 49 U/L (73-393) L 11/03/16 13:47 Tumor Marker AFP 0.8 ng/ml (0.0-8.3) 11/07/16 06:00 Blood Type O POSITIVE 11/06/16 10:25 Antibody Screen Negative 11/06/16 10:25 Crossmatch See Detail 11/06/16 10:25 Spec Expiration Date 11/06/16 10:25 EKG 11/03: sr with pac's. av delay. ivcd. non-specific t wave abnormalities, similar to prior (office) EKG 11/04: sr with pvc's and wenckebach rhythm. av delay. IVCD. lateral st segment sagging (new) tele: sr cxr: no acute infiltrates MIBI 07/05 (pers): no STs; small area apical isch and basal inferolateral wall; mild global LV hypo, EF 46% Echo 12/05: nl LV/EF; dd2; nl RV; mild-mod LAE; anter eccentric MR appears likely moderate, ? underestimated; peak E <120 (109), pulm vein inflow doppler TDS; hi LAP a/p: 81 yo with h/o CAD s/p CABG, afib on xarelto (recently held for melena and anemia), CVA, hypertension, hyperlipidemia, IDDM, liver cancer(Chemo, 40% liver removed in 2008), who p/w melena for approximately 1 week. GIB - h/o UGIB 2014, work up unrevealing at that time --> had continued renally dosed xarelto - now with recurrence and sx anemia s/p transfusion. GI following. holding AC - 11/05 no further bleeding. minimal bump in hgb after transfusion. no plan for egd today. - 11/06 recurrence of bleed. s/p transfusion and dose of lasix. - had egd w/o source of bleed, planned for FOC today NSTEMI - here with NSTEMI in setting of anemia/GIB and h/o known CAD and medically managed low risk ischemia. Mild troponin elevation. Peak 2.29. CK not elevated. Subtle EKG changes. Patient remains asx. Troponin elevation is most likely (but not definitively) demand due to underlying CAD in setting of anemia. Would not recommend treatment of nstemi (AC/antiplatelet) due to active bleed. On low dose statin and bb. - consider repeat echo and/or ischemic evaluation once acute issues are resolved. - CAD management as mentioned below. Pre-operative clearance - Based on RCRI, patient has a high risk of ginger-operative cardiovascular events. However endoscopy/foc is a low risk procedure and is a necessary part of evaluation/management for his current/active GIB. He has known residual CAD disease and low risk areas of ischemia. Troponin elevation is most likely (but not definitively) demand due to underlying disease in setting of anemia. Would not recommend treatment as nstemi due to active bleed. Trop peak was on 11/03. Has plan for FOC today. Close ginger-operative monitoring. Limit IVF when possible. pAFib - currently holding xarelto due to active bleed. - Rate controlled on coreg. CAD S/P CABG '05: GAN TO LAD, SVG SEQUENTIAL TO DIAG-->OM; SVG TO RPDA. - 07/05 NSTEMI LIKELY RELATED TO CHEMO AGENT, MIBI WITH SMALL PEDIATRIC CARE COORDINATOR ISCHEMIA AND SMALL APICAL ISCH (? DISTAL [place] LAD DZ BEYOND GAN ANASTAMOSIS). --> low risk scans in past and has been managed with medical therapy. coreg, arb, ntg patch, statin. - coreg, arb initiated but not ntg patch. Patient without anginal sx's. Will hold off on ntg patch for now while bp labile - anemia mgm't per gi, pmd chronic dchf - recently switched to chlorthalidone as outpatient. Patient with mild stable LE edema. appears euvolemic. Hold diuresis while GIB is worked up - 11/05: getting IVF. low bp noted earlier today. Monitor volume status closely. - 11/06: LE edema slightly worse today. Received one dose of IV lasix - 11/07-: volume status stable . mod MR - stable, no signs of decompensation. reasonable bp control. HTN - also with h/o sx (?syncope) orthostatic hypotension - recently lowered outpatient dose of olmesartan in setting of hyperkalemia and added chlorthalidone, in addition to hydralazine, olmesartan, coreg and ntg patch. - initated on hydralazine, arb and coreg. Holding ntg patch and chlorthalidone as mentioned above. 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 asx. con't statin, no asa b/c of gib CKD (bline 1.4-1.9) - at baseline, con't to monitor Hld -cont statin
[2016-11-08 11:05] LABS: ALBUMIN 3.3 g/dl (3.4-5.0); CALCIUM 8.7 mg/dL (8.5-10.1); COCKROFT - GAULT 32.65; CREATININE 1.8 mg/dL (0.7-1.3); TOT PROT 5.6 g/dl (6.4-8.2)
[2016-11-08] MEDS: SODIUM PHOSPHATE/NA BIPHOS 133 ML ENEMA PR SCH ×2 (11:38→11:46)
[2016-11-08] MEDS ORDERED: PROPOFOL 20 ML ONE ×2 (15:07)
[2016-11-08] MEDS: INSULIN DETEMIR 100 UNITS/ML MDV SQ SCH (22:07)
[2016-11-08] MEDS: ATORVASTATIN CA 10 MG TABLET (FP) PO SCH (22:07)
[2016-11-09] MEDS: PANTOPRAZOLE SODIUM 80 MG in SODIUM CHLORIDE 100 ML IVPB SCH (04:48)
[2016-11-09] MEDS: INSULIN SLIDING SCALE (NOVOLOG) 1 VIAL SQ SCH ×2 (06:26→11:24)
--- NOTE | 2016-11-09 08:39 | DS ---
Physical Examination Vital Signs: Vital Signs Temperature 98.3 F 11/09/16 05:00 Pulse Rate 72 11/09/16 05:00 Respiratory Rate 18 11/09/16 05:00 Blood Pressure 142/61 11/09/16 05:00 O2 Sat by Pulse Oximetry (%) 98 11/08/16 21:00 Cardiovascular: Yes: Regular Rate and Rhythm Respiratory: Yes: Regular, CTA Bilaterally Gastrointestinal: Yes: Normal Bowel Sounds, Soft Labs: CBC, BMP 11/08/16 10:32 11/08/16 10:32 Discharge Summary Reason For Visit: GI HEMORRHAGE;MYOCARDIAL ISCHEMIA;RENAL INSUFFICIE Current Active Problems Asymptomatic myocardial ischemia (Acute) GI bleed (Acute) Renal insufficiency syndrome (Acute) Hospital Course: 81 year old male, with a significant past medical history of hypertension, hyperlipidemia, IDDM, liver cancer(Chemo, 40% liver removed in 2008), CVA, CAD, Quadruple Bypass, and A-Fib(on Xarelto), who presents to the emergency department complaining of melena for approximately 1 week. The patient reports constipation for approximately 2 days. He reports taking a laxative with no relief. The patient reports his last bowel movement was black and tarry. The patient reports associated decrease in appetite, grogginess, and dizziness.Pt was seen in office 2 days ago and he refused admission at which time I stopped Xarelto and bloods drawn--hgb 8.9 then he was sent for a blood transfusion. The patient denies any abdominal pain, nausea, vomiting, hematochezia or diarrhea. The patient denies any dysuria, hematuria, frequency, or urgency. The patient denies any fever, chills, cough, or headache. The patient denies any recent travel or sick contacts. - Past Medical History Cardiovascular: Yes: AFIB, CAD, CHF, HTN, Hyperlipdemia Gastrointestinal: Yes: Cancer (primary liver) Hepatobiliary: Yes: Other (primary liver cancer s/p resection and now recurr in lymph nodes on chemo (nexavar)) Renal/: Yes: Renal Inusuff Endocrine: Yes: Diabetes Mellitus (insulin dependent) - Past Surgical History Past Surgical History: Yes: CABG (partial liver resection) Problems (1) Upper GI bleeding Assessment/Plan: OFF AC GI CONSULT NOTED--FOR EGD--NO ACTIVE BLEEDING PPI S/P TRANSFUSION OF PRBC AWAIT LABS Code(s): K92.2 - GASTROINTESTINAL HEMORRHAGE, UNSPECIFIED (2) Anemia Assessment/Plan: S/P PRBC--WILL GIVE 2 MORE UNITS STABLE CBC FOR COLONOSCOPY POLYPS AND DIVERTICULOSIS Code(s): D64.9 - ANEMIA, UNSPECIFIED (3) Asymptomatic myocardial ischemia Assessment/Plan: TROP TRENDING DOWN CARDIO NOTED SAME MEDS Code(s): I25.6 - SILENT MYOCARDIAL ISCHEMIA (4) Renal insufficiency syndrome Assessment/Plan: MONITOR Code(s): N28.9 - DISORDER OF KIDNEY AND URETER, UNSPECIFIED (5) Afib Assessment/Plan: START COUMADIN pt in sinus---no need to bridge d/w gi avoid xarelto Code(s): I48.91 - UNSPECIFIED ATRIAL FIBRILLATION Condition: Unchanged/Unknown - Instructions Diet, Activity, Other Instructions: MONITOR BLOOD TEST FOR COUMADIN IN OFFICE Referrals: Idris Borges MD [Primary Care Provider] - 11/14/16 Disposition: HOME - Home Medications Comprehensive Discharge Medication List: Ambulatory Orders Carvedilol [Coreg -] 12.5 mg PO BID 11/03/16 Lantus (10mL VIAL) - 12 units SQ HS 11/03/16 Nitroglycerin Patch [Nitro-Dur Patch -] 0.4 mg TD DAILY 11/03/16 Olmesartan Medoxomil [Benicar -] 20 mg PO DAILY 11/03/16 Simvastatin [Zocor -] 10 mg PO HS 11/03/16 Hydralazine HCl [Apresoline -] 25 mg PO BID #60 tablet 11/09/16 Pantoprazole Sodium [Protonix -] 40 mg PO BID #60 tab 11/09/16 Warfarin Na [Coumadin -] 5 mg PO DAILY@1800 #30 tablet 11/09/16
[2016-11-09] MEDS ORDERED: PANTOPRAZOLE 40 MG TABLET (FP) PO SCH (10:00)
[2016-11-09] MEDS ORDERED: hydrALAZINE HCL 25 MG TABLET (FP) PO SCH (10:00)
[2016-11-09 10:18] VITALS: BP 161/96; PULSE 70; TEMP 98
[2016-11-09] MEDS: CARVEDILOL 12.5 MG TABLET (FP) PO SCH (10:20)
[2016-11-09] MEDS: VALSARTAN 160 MG TABLET (UD) PO SCH (10:21)
--- NOTE | 2016-11-09 10:24 | PN ---
Progress Note (short form) - Note Progress Note: S: no cp, palps, dizziness, sob. Current Medications Generic Name Dose Route Start Last Admin Trade Name Freq PRN Reason Stop Dose Admin Acetaminophen 650 mg 11/03/16 23:04 Tylenol - PO Q4H PRN FEVER OR PAIN Atorvastatin Calcium 10 mg 11/04/16 22:00 11/08/16 22:07 Lipitor - PO 10 mg HS RAMU Administration Carvedilol 12.5 mg 11/04/16 10:00 11/08/16 22:07 Coreg - PO 12.5 mg BID RAMU Administration Hydralazine HCl 25 mg 11/09/16 10:00 Apresoline - PO BID RAMU Insulin Aspart 1 vial 11/04/16 07:00 11/09/16 06:26 Novolog Vial Sliding Scale - SQ Not Given ACHS [facility] Protocol Insulin Detemir 12 units 11/04/16 22:00 11/08/16 22:07 Levemir Vial SQ 12 units HS RAMU Administration Pantoprazole Sodium 40 mg 11/09/16 10:00 Protonix - PO BID RAMU Valsartan 160 mg 11/04/16 10:00 11/08/16 09:35 Diovan - PO 160 mg DAILY RAMU Administration Warfarin Sodium 5 mg 11/09/16 18:00 Coumadin - PO DAILY@1800 RAMU Vital Signs Period Temp Pulse Resp BP Sys/Gregory Pulse Ox Last 24 Hr 97.3 F-99.0 F 67-75 16-19 114-183/35-96 98-100 NAD, calm JVD flat, neck supple rrr nl s1, s2 2/6 murmur at apex ctab, nl effort + bs soft nt nd no le e/c/c aao x3 no jaundice, diaphoresis Laboratory Last Values WBC 5.0 K/mm3 (4.0-10.0) 11/08/16 10:32 RBC 3.80 M/mm3 (4.00-5.60) L 11/08/16 10:32 Hgb 12.3 GM/dL (11.7-16.9) 11/08/16 10:32 Hct 35.6 % (35.4-49) 11/08/16 10:32 MCV 93.7 fl (80-96) 11/08/16 10:32 MCHC 34.6 g/dl (32.0-35.9) 11/08/16 10:32 RDW 14.8 % (11.9-15.9) 11/08/16 10:32 Plt Count 107 K/MM3 (134-434) L 11/08/16 10:32 MPV 9.0 fl (7.5-11.1) 11/08/16 10:32 Neutrophils % 61.0 % (42.8-82.8) 11/08/16 10:32 Lymphocytes % 23.0 % (8-40) 11/08/16 10:32 Monocytes % 8.9 % (3.8-10.2) 11/08/16 10:32 Eosinophils % 6.4 % (0-4.5) H 11/08/16 10:32 Basophils % 0.7 % (0-2.0) 11/08/16 10:32 INR 1.20 (0.82-1.09) H 11/04/16 06:20 Sodium 143 mmol/L (136-145) 11/08/16 10:32 Potassium 4.3 mmol/L (3.5-5.1) 11/08/16 10:32 Chloride 108 mmol/L (98-107) H 11/08/16 10:32 Carbon Dioxide 27 mmol/L (21-32) 11/08/16 10:32 Anion Gap 8 (8-16) 11/08/16 10:32 BUN 32 mg/dL (7-18) H 11/08/16 10:32 Creatinine 1.8 mg/dL (0.7-1.3) H 11/08/16 10:32 Creat Clearance w eGFR 36.39 (>60) 11/08/16 10:32 POC Glucometer 188 UNITS (()) 11/09/16 05:36 Random Glucose 109 mg/dL (74-106) H D 11/08/16 10:32 Calcium 8.7 mg/dL (8.5-10.1) 11/08/16 10:32 Total Bilirubin 2.0 mg/dL (0.2-1.0) H D 11/08/16 10:32 AST 27 U/L (15-37) 11/08/16 10:32 ALT 20 U/L (12-78) 11/08/16 10:32 Alkaline Phosphatase 95 U/L (45-117) 11/08/16 10:32 Creatine Kinase 136 IU/L (39-308) 11/07/16 09:21 Troponin I 0.23 ng/ml (0.00-0.05) H D 11/07/16 09:21 Total Protein 5.6 g/dl (6.4-8.2) L 11/08/16 10:32 Albumin 3.3 g/dl (3.4-5.0) L 11/08/16 10:32 Lipase 49 U/L (73-393) L 11/03/16 13:47 Tumor Marker AFP 0.8 ng/ml (0.0-8.3) 11/07/16 06:00 Blood Type O POSITIVE 11/06/16 10:25 Antibody Screen Negative 11/06/16 10:25 Crossmatch See Detail 11/06/16 10:25 Spec Expiration Date 11/06/16 10:25 EKG 11/03: sr with pac's. av delay. ivcd. non-specific t wave abnormalities, similar to prior (office) EKG 11/04: sr with pvc's and wenckebach rhythm. av delay. IVCD. lateral st segment sagging (new) tele: sr cxr: no acute infiltrates MIBI 07/05 (pers): no STs; small area apical isch and basal inferolateral wall; mild global LV hypo, EF 46% Echo 12/05: nl LV/EF; dd2; nl RV; mild-mod LAE; anter eccentric MR appears likely moderate, ? underestimated; peak E <120 (109), pulm vein inflow doppler TDS; hi LAP a/p: 81 yo with h/o CAD s/p CABG, afib on xarelto (recently held for melena and anemia), CVA, hypertension, hyperlipidemia, IDDM, liver cancer(Chemo, 40% liver removed in 2008), who p/w melena for approximately 1 week. GIB - h/o UGIB 2014, work up unrevealing at that time --> had continued renally dosed xarelto - now with recurrence and sx anemia s/p transfusion. GI following. holding AC - 11/05 no further bleeding. minimal bump in hgb after transfusion. no plan for egd today. - 11/06 recurrence of bleed. s/p transfusion and dose of lasix. - had egd and foc w/o source of bleed, planned for outpt capsule study NSTEMI - here with NSTEMI in setting of anemia/GIB and h/o known CAD and medically managed low risk ischemia. Mild troponin elevation. Peak 2.29. CK not elevated. Subtle EKG changes. Patient remains asx. Troponin elevation is most likely (but not definitively) demand due to underlying CAD in setting of anemia. Would not recommend treatment of nstemi (AC/antiplatelet) due to active bleed. On low dose statin and bb. - consider repeat echo and/or ischemic evaluation once GIB eval complete ( capsule study pending) - CAD management as mentioned below. pAFib - Rate controlled on coreg. - on coumadin for reversibility, no need for bridging CAD S/P CABG '05: GAN TO LAD, SVG SEQUENTIAL TO DIAG-->OM; SVG TO RPDA. - 07/05 NSTEMI LIKELY RELATED TO CHEMO AGENT, MIBI WITH SMALL BLACKSMITH APPRENTICE ISCHEMIA AND SMALL APICAL ISCH (? [place] LAD DZ BEYOND GAN ANASTAMOSIS). --> low risk scans in past and has been managed with medical therapy. coreg, arb, ntg patch, statin. - cont home coreg, arb, ntg patch. Patient without anginal sx's. - anemia mgm't per gi, pmd chronic diastolic chf - recently switched to chlorthalidone as outpatient. Patient with mild stable LE edema. appears euvolemic. Hold diuresis while GIB is worked up - 11/05: getting IVF. low bp noted earlier today. Monitor volume status closely. - 11/06: LE edema slightly worse today. Received one dose of IV lasix - 11/07-20: volume status stable, can resume home chlorthalidone mod MR - stable, no signs of decompensation. reasonable bp control. HTN - also with h/o sx (?syncope) orthostatic hypotension - recently lowered outpatient dose of olmesartan in setting of hyperkalemia and added chlorthalidone, in addition to hydralazine, olmesartan, coreg and ntg patch, cont same home meds. 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 asx. con't statin, no asa b/c of gib CKD (bline 1.4-1.9) - at baseline, con't to monitor Hld -cont statin cardiac walsh remains stable
[2016-11-09 10:47] LABS: INR 1.19 (0.82-1.09); PROTHROMBIN TIME (PATIENT) 13.1 SEC (9.98-11.88)
--- NOTE | 2016-11-09 14:02 | PATH ---
Surgical Pathology Report Patient Name: KRISTIAN CONNER JR [facility]. Rec. #: [id number] /Age/Gender: 1935 (Age: 81) / M Account: [id number] Location: 4 SO PEDS/ADOL Taken: 11/07/2016 Received: 11/08/2016 Reported: 11/09/2016 Physicians: Victorino Calvillo M.D. 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 NO DYSPLASIA IDENTIFIED. IMMUNOSTAIN FOR H. PYLORI IS NEGATIVE. Electronically Signed Zach Aguilar M.D. Gross Description Received in formalin, labeled "biopsy nodular mucosa" are 2 wade, irregular portions of soft tissue measuring 0.3 and 0.5 cm. in greatest dimension. The specimens are submitted in toto in one cassette. /11/08/201611/08/2016
[2016-11-09] MEDS ORDERED: WARFARIN NA 5 MG TABLET (UD) PO SCH (18:00)
--- NOTE | 2016-11-10 12:38 | PATH ---
Surgical Pathology Report Patient Name: KRISTIAN CONNER JR [facility]. Rec. #: [id number] /Age/Gender: 1935 (Age: 81) / M Account: [id number] Location: 4 SO PEDS/ADOL Taken: 11/08/2016 Received: 11/09/2016 Reported: 11/10/2016 Physicians: Victorino Calvillo M.D. Specimen(s) Received ASCENDING COLON POLYPS Clinical History GI bleed Polyps, diverticulosis Final Diagnosis COLON, ASCENDING, POLYPS, POLYPECTOMY: FRAGMENTS OF TUBULAR ADENOMA (x3). Electronically Signed Francis Baltazar M.D. Gross Description Received in formalin, labeled "ascending colon polyps" are 3 wade, irregular portions of soft tissue ranging from 0.2-0.4 cm in greatest dimension. The specimens are submitted in toto in one cassette. /11/09/201611/09/2016
== END 2016-11-09 13:12 | disposition home or self-care (01) | DRG 377 ==
LOC: JER 12:45 → JERBED 16:31 → J4S 18:15 → JERBED 23:04 → OBSVTOIN 23:04
PROVIDERS: ADMIT Family Medicine; ATTEND Family Medicine
PROC: 30233N1 Transfusion of Nonautologous Red Blood Cells into Peripheral Vein, Percutaneous Approach (ICD-10-PCS; principal; 2016-11-03)
PROC: 3E0F7GC Introduction of Other Therapeutic Substance into Respiratory Tract, Via Natural or Artificial Opening (ICD-10-PCS; 2016-11-03)
PROC: 0DBK8ZX Excision of Ascending Colon, Via Natural or Artificial Opening Endoscopic, Diagnostic (ICD-10-PCS; 2016-11-08)
DX: K92.2 Gastrointestinal hemorrhage, unspecified (principal); I21.4 Non-ST elevation (NSTEMI) myocardial infarction; I50.32 Chronic diastolic (congestive) heart failure; D50.0 Iron deficiency anemia secondary to blood loss (chronic); I25.10 Atherosclerotic heart disease of native coronary artery without angina pectoris; Z95.1 Presence of aortocoronary bypass graft; I48.0 Paroxysmal atrial fibrillation; Z79.01 Long term (current) use of anticoagulants; E11.9 Type 2 diabetes mellitus without complications; Z79.4 Long term (current) use of insulin; E87.5 Hyperkalemia; Z86.73 Personal history of transient ischemic attack (TIA), and cerebral infarction without residual deficits; Z85.05 Personal history of malignant neoplasm of liver; K57.30 Diverticulosis of large intestine without perforation or abscess without bleeding; D12.2 Benign neoplasm of ascending colon; I11.0 Hypertensive heart disease with heart failure; I34.0 Nonrheumatic mitral (valve) insufficiency; G47.33 Obstructive sleep apnea (adult) (pediatric)
CPT/HCPCS: 36415; 36430; 71010-TC; 76700-TC; 80053; 82105; 82550; 83690; 84484; 85025; 85027; 85610; 86850; 86900; 86901; 86922; 88305-TC; 93005; 93010; 93970-TC; 99283-25; G0378; P9038; P9058

== ENCOUNTER 2018-08-21 03:36 | Inpatient (IN) | payer OTHER ==
--- NOTE | 2018-08-21 05:04 | PDOC ---
Attending Attestation - HPI HPI: 08/21/18 05:33 The patient is a 82 year old male, with a significant past medical history of HTN, HLD, IDDM, liver cancer (Chemo, partial hepatectomy in 2008), CVA, CAD, Quadruple Bypass, and A-Fib (on Xarelto), who presents to the emergency department complaining of abdominal pain for the last couple of days. The patient describes the pain has diffuse, nonradiating, and accompanied by nausea. Denies any vomiting. He reports that his last bowel movement was 4 days ago. Allergies: None reported. Past Surgical History: Quadruple bypass, partial hepatectomy. Social History: Denies tobacco, alcohol, or drug use.. PCP: Dr. Borges - Physicial Exam PE: 08/21/18 05:33 Agreed with residents exam. <Doris Clarke - Last Filed: 08/21/18 05:33> - Resident Resident Name: Daniele Turcios - ED Attending Attestation I have performed the following: I have examined & evaluated the patient, The case was reviewed & discussed with the resident, I agree w/resident's findings & plan - Medical Decision Making 08/21/18 05:36 82-year-old male with several days of diffuse abdominal pain, worsening Last bowel movement 4 days ago Patient is ill-appearing Labs and CTA of the abdomen are ordered and pending EKG shows atrial fibrillation with a ventricular rate of 90-95 bpm with a left anterior fascicular block There is no old readily available for comparison Plan for disposition pending CT results <Elizabeth Zapata - Last Filed: 08/21/18 05:39> Attestations - Attestations 08/21/18 05:34 Documentation prepared by Doris Clarke, acting as quality engineer medical device for Elizabeth Zapata DO, MD <Doris Clarke - Last Filed: 08/21/18 05:33>
[2018-08-21] MEDS ORDERED: morphine CARPU-JECT 4 MG/1 ML DISP.SYRIN IVPUSH ONE (05:15)
[2018-08-21] MEDS ORDERED: SODIUM CHLORIDE 1,000 ML IV STA ×3 (05:15→11:09)
[2018-08-21] MEDS ORDERED: ONDANSETRON 4 MG/2 ML VIAL IVPUSH ONE (05:15)
[2018-08-21] MEDS ORDERED: ONDANSETRON 4 MG/2 ML VIAL ONE (05:29)
[2018-08-21] MEDS ORDERED: MORPHINE SULFATE 2 MG/ML VIAL ONE ×2 (05:29→13:25)
[2018-08-21 05:39] LABS: BASO % 0.1 % (0-2.0); HEMATOCRIT 38.7 % (35.4-49); HEMOGLOBIN 13.4 GM/dL (11.7-16.9); LYMPH % 15.5 % (8-40); MCHC 34.6 g/dl (32.0-35.9); MEAN CELL VOLUME 95.3 fl (80-96); MEAN PLT VOLUME 10.2 fl (7.5-11.1); MONO % 3.6 % (3.8-10.2); NEUT % 80.8 % (42.8-82.8); PLATELET COUNT 103 K/MM3 (134-434); RBC 4.06 M/mm3 (4.00-5.60); RDW 13.5 % (11.9-15.9); WHITE BLOOD COUNT 6.3 K/mm3 (4.0-10.0)
[2018-08-21 06:01] LABS: ALBUMIN 3.9 g/dl (3.4-5.0); ALK PHOS 101 U/L (45-117); ANION GAP 9 MMOL/L (8-16); BILIRUBIN,TOTAL 1.4 mg/dL (0.2-1); BLOOD UREA NITROGEN 70 mg/dL (7-18); CALCIUM 8.9 mg/dL (8.5-10.1); CHLORIDE 99 mmol/L (98-107); CO2 26 mmol/L (21-32); CREATININE 2.3 mg/dL (0.55-1.3); GLUCOSE,RANDOM 298 mg/dL (74-106); LIPASE 49 U/L (73-393); POTASSIUM 5.6 mmol/L (3.5-5.1); SGOT/AST 31 U/L (15-37); SGPT/ALT 31 U/L (13-61); SODIUM 133 mmol/L (136-145); TOT PROT 7.1 g/dl (6.4-8.2)
--- NOTE | 2018-08-21 06:29 | PDOC ---
History of Present Illness - General Chief Complaint: Pain Stated Complaint: ABD PRESSURE Time Seen by Provider: 08/21/18 05:02 History Source: Patient Exam Limitations: No Limitations - History of Present Illness Initial Comments: 08/21/18 06:29 Patient is an 82M with history of hypertension, hyperlipidemia, IDDM, liver cancer(Chemo, 40% liver removed in 2008), CVA, CAD, Quadruple Bypass, and afib ( on coumadin) here today complaining of abdominal pain worsening over the past three days. Patient describes the pain as diffuse. Patient states that he feels nauseous, and that he has been constipated for the past four days. Denies dysuria. No sick contacts. Endorses compliance with medications. Past History - Past Medical History Allergies/Adverse Reactions: Allergies Allergy/AdvReac Type Severity Reaction Status Date / Time No Known Drug Allergies Allergy Verified 11/03/16 12:54 Home Medications: Ambulatory Orders Carvedilol [Coreg -] 25 mg PO BID 11/03/16 Lantus (10mL VIAL) - 8 units SQ HS 11/03/16 Nitroglycerin Patch [Nitro-Dur Patch -] 0.4 mg TD DAILY 11/03/16 Simvastatin [Zocor -] 20 mg PO HS 11/03/16 Clonidine HCl 0.1 mg PO DAILY 08/21/18 Insulin Aspart [Novolog] 0 unit SQ TID 08/21/18 Olmesartan Medoxomil [Benicar] 10 mg PO HS 08/21/18 Tamsulosin HCl 0.4 mg PO DAILY 08/21/18 Torsemide 20 mg PO DAILY 08/21/18 Warfarin Na [Coumadin] 2 mg PO DAILY 08/21/18 hydrALAZINE HCL [Apresoline -] 10 mg PO BID 08/21/18 Anemia: No Asthma: No Cancer: Yes (LIVER, CHEMO (PILLS)ABDOMEN) Cardiac Disorders: Yes (CAD; QUADRUP BYPASS; A-FIB) CVA: Yes (MINI TIMES ONE) COPD: No CHF: No Dementia: No Diabetes: Yes (IDDM) GI Disorders: No Disorders: No HTN: Yes Hypercholesterolemia: Yes Liver Disease: Yes (LIVER CA) Seizures: No Thyroid Disease: No - Surgical History Abdominal Surgery: Yes (40% LIVER REMOVED 2008, LYMPH NODE REMOVES FOR ABD 2 WKS AGO) Appendectomy: No Cardiac Surgery: Yes (QUADRUP. BYPASS) Cholecystectomy: Yes (NOT SURE) Lung Surgery: No Neurologic Surgery: No Orthopedic Surgery: No - Suicide/Smoking/Psychosocial Hx Smoking History: Never smoked Have you smoked in the past 12 months: No Information on smoking cessation initiated: No Hx Alcohol Use: No Drug/Substance Use Hx: No Substance Use Type: None Hx Substance Use Treatment: No Review of Systems - Review of Systems Comments:: 08/21/18 06:32 GENERAL/CONSTITUTIONAL: No fever or chills. No weakness. HEAD, EYES, EARS, NOSE AND THROAT: No change in vision. No sore throat. CARDIOVASCULAR: No chest pain or shortness of breath RESPIRATORY: No cough, wheezing, or hemoptysis. GASTROINTESTINAL: +nausea, +vomiting, +constipation. GENITOURINARY: No dysuria, frequency, or change in urination. MUSCULOSKELETAL: No joint or muscle swelling or pain. No neck or back pain. SKIN: No rash NEUROLOGIC: No headache, vertigo, loss of consciousness, or change in strength/ sensation. ENDOCRINE: No increased thirst. No abnormal weight change ALLERGIC/IMMUNOLOGIC: No hives or skin allergy. *Physical Exam - Vital Signs Last Vital Signs Temp Pulse Resp BP Pulse Ox 98.1 F 96 H 18 108/71 97 08/21/18 03:36 08/21/18 03:36 08/21/18 03:36 08/21/18 03:36 08/21/18 03:36 - Physical Exam Comments: 08/21/18 06:34 GENERAL: Awake, alert, and fully oriented, ill-appearing HEAD: No signs of trauma, normocephalic, atraumatic EYES: PERRLA, EOMI, sclera anicteric, conjunctiva clear ENT: Auricles normal inspection, hearing grossly normal, nares patent, oropharynx clear without exudates. Moist mucosa NECK: Normal ROM, supple, no lymphadenopathy, JVD, or masses LUNGS: No distress, speaks full sentences, clear to auscultation bilaterally HEART: Regular rate and rhythm, normal S1 and S2, no murmurs, rubs or gallops, peripheral pulses normal and equal bilaterally. ABDOMEN: Diffusely tender, unable to worsen pain with palpation, splinting breathing EXTREMITIES: Normal inspection, Normal range of motion, no edema. No clubbing or cyanosis. NEUROLOGICAL: Cranial nerves II through XII grossly intact. Normal speech, no focal sensorimotor deficits SKIN: Warm, Dry, normal turgor, no rashes or lesions noted. Moderate Sedation - Procedure Monitoring Vital Signs: Procedure Monitoring Vital Signs Temperature 98.1 F 08/21/18 03:36 Pulse Rate 96 H 08/21/18 03:36 Respiratory Rate 18 08/21/18 03:36 Blood Pressure 108/71 08/21/18 03:36 O2 Sat by Pulse Oximetry (%) 97 08/21/18 03:36 ED Treatment Course - LABORATORY CBC & Chemistry Diagram: 08/21/18 05:20 08/21/18 05:20 - ADDITIONAL ORDERS Additional order review: Laboratory Results 08/21/18 08/21/18 08/21/18 05:20 05:20 05:20 PT with INR 17.40 H INR 1.47 H Sodium 133 L Potassium 5.6 H Chloride 99 Carbon Dioxide 26 Anion Gap 9 BUN 70 H Creatinine 2.3 H Creat Clearance w eGFR 27.36 Random Glucose 298 H Lactic Acid 1.9 Calcium 8.9 Total Bilirubin 1.4 H AST 31 ALT 31 Alkaline Phosphatase 101 Creatine Kinase 97 Troponin I 0.04 Total Protein 7.1 Albumin 3.9 Lipase 49 L 08/21/18 05:20 RBC 4.06 MCV 95.3 MCHC 34.6 RDW 13.5 MPV 10.2 D Neutrophils % 80.8 D Lymphocytes % 15.5 D Monocytes % 3.6 L Eosinophils % 0.0 D Basophils % 0.1 - RADIOLOGY Radiology Studies Ordered: Category Date Time Status ABDOMEN & PELVIS CT W/O CONTR [CT] Stat CT Scan 08/21/18 06:13 Taken - Medications Given in the ED: ED Medications Discontinued Medications Generic Name Dose Route Start Last Admin Trade Name Freq PRN Reason Stop Dose Admin Sodium Chloride 1,000 mls @ 1,000 mls/hr 08/21/18 05:15 08/21/18 05:39 Normal Saline - IV 08/21/18 06:14 1,000 mls/hr ASDIR STA Administration Morphine Sulfate 2 mg 08/21/18 05:15 08/21/18 05:38 Morphine Injection - IVPUSH 08/21/18 05:16 2 mg ONCE ONE Administration Ondansetron HCl 4 mg 08/21/18 05:15 08/21/18 05:39 Zofran Injection IVPUSH 08/21/18 05:16 4 mg ONCE ONE Administration Medical Decision Making - Medical Decision Making 08/21/18 06:37 Patient is 82M with history of hypertension, hyperlipidemia, IDDM, liver cancer( Chemo, 40% liver removed in 2008), CVA, CAD, Quadruple Bypass, and afib (on coumadin) here today with abdominal pain. Patient in severe pain, ill-appearing , pain out of proportion. DDx includes, but is not limited to: sbo, aaa, mesenteric ischemia. BP low for patient with HTN. EKG shows afib with rate of 93. No st elevations/depressions. LAFB pattern. Poor baseline limits t wave interpretation. Lactic acid negative. CMP shows LUIS. Trop negative. Will do dry ct, mesenteric ischemia less likely. Signed out to Dr Beatty. *DC/Admit/Observation/Transfer Diagnosis at time of Disposition: Abdominal pain - Discharge Dispostion Condition at time of disposition: Fair - Referrals Referrals: Idris Borges MD [Primary Care Provider] - - Patient Instructions - Post Discharge Activity
[2018-08-21 06:53] LABS: INR 1.45 (0.83-1.09); PROTHROMBIN TIME (PATIENT) 17.2 SEC (9.7-13.0)
--- NOTE | 2018-08-21 08:36 | PDOC ---
*Physical Exam - Vital Signs Last Vital Signs Temp Pulse Resp BP Pulse Ox 98.1 F 96 H 18 108/71 97 08/21/18 03:36 08/21/18 03:36 08/21/18 03:36 08/21/18 03:36 08/21/18 03:36 - Physical Exam Comments: 08/21/18 08:34 Patient endorsed to me by Dr. hardwick. Patient is an 82-year-old male with multiple comorbidities, atrial fibrillation on Coumadin who presented with abdominal pain. CBC revealed no evidence of significant leukocytosis. CMP revealed elevated BUN and creatinine consistent with ericka with potassium of 5.6. Lactic acid was noted to be within normal limit. CT of abdomen and pelvis without IV or by mouth contrast was obtained and showed no evidence of acute intra-abdominal pathology. I reexamined the patient at bedside. Abdominal exam revealed no focal tenderness and patient denied any abdominal pain. Mucous membranes are noted to be dry despite administration of 1 L of normal saline. Will continue to judiciously hydrate with D5 half-normal saline. Will admit for serial abdominal exams, continuous hydration and reassessment. 08/21/18 08:36 INR is noted to be 1.45, subtherapeutic. My suspicion for mesenteric ischemia at this time is low. No indication for immediate surgical consult at this time. 08/21/18 09:52 Patient reassessed. Patient moaning in pain complaining of diffuse abdominal fullness. Repeat exam reveals no focal tenderness. Will continue to resuscitated with IV fluids. We'll consult surgery and renal. Will repeat lactic acid. 08/21/18 15:37 Patient asymptomatic at this time, with complete resolution of pain. Will continue to hydrate and will continue with heparin drip. Awaiting transfer to the ICU. <Ar Beatty - Last Filed: 08/21/18 15:37> - Vital Signs Last Vital Signs Temp Pulse Resp BP Pulse Ox 98.1 F 96 H 18 108/71 97 08/21/18 03:36 08/21/18 03:36 08/21/18 03:36 08/21/18 03:36 08/21/18 03:36 <Maria Esther Salcedo - Last Filed: 08/21/18 15:38> ED Treatment Course - LABORATORY CBC & Chemistry Diagram: 08/21/18 13:00 08/21/18 14:18 - ADDITIONAL ORDERS Additional order review: Laboratory Results 08/21/18 08/21/18 08/21/18 05:20 05:20 05:20 PT with INR 17.20 H INR 1.45 H Sodium 133 L Potassium 5.6 H Chloride 99 Carbon Dioxide 26 Anion Gap 9 BUN 70 H Creatinine 2.3 H Creat Clearance w eGFR 27.36 Random Glucose 298 H Lactic Acid 1.9 Calcium 8.9 Total Bilirubin 1.4 H AST 31 ALT 31 Alkaline Phosphatase 101 Creatine Kinase 97 Troponin I 0.04 Total Protein 7.1 Albumin 3.9 Lipase 49 L 08/21/18 05:20 RBC 4.06 MCV 95.3 MCHC 34.6 RDW 13.5 MPV 10.2 D Neutrophils % 80.8 D Lymphocytes % 15.5 D Monocytes % 3.6 L Eosinophils % 0.0 D Basophils % 0.1 - Medications Given in the ED: ED Medications Discontinued Medications Generic Name Dose Route Start Last Admin Trade Name Freq PRN Reason Stop Dose Admin Sodium Chloride 1,000 mls @ 1,000 mls/hr 08/21/18 05:15 08/21/18 05:39 Normal Saline - IV 08/21/18 06:14 1,000 mls/hr ASDIR STA Administration Morphine Sulfate 2 mg 08/21/18 05:15 08/21/18 05:38 Morphine Injection - IVPUSH 08/21/18 05:16 2 mg ONCE ONE Administration Ondansetron HCl 4 mg 08/21/18 05:15 08/21/18 05:39 Zofran Injection IVPUSH 08/21/18 05:16 4 mg ONCE ONE Administration <Ar Beatty - Last Filed: 08/21/18 15:37> - LABORATORY CBC & Chemistry Diagram: 08/21/18 13:00 08/21/18 14:18 - ADDITIONAL ORDERS Additional order review: Laboratory Results 08/21/18 08/21/18 08/21/18 05:20 05:20 05:20 PT with INR 17.20 H INR 1.45 H Sodium 133 L Potassium 5.6 H Chloride 99 Carbon Dioxide 26 Anion Gap 9 BUN 70 H Creatinine 2.3 H Creat Clearance w eGFR 27.36 Random Glucose 298 H Lactic Acid 1.9 Calcium 8.9 Total Bilirubin 1.4 H AST 31 ALT 31 Alkaline Phosphatase 101 Creatine Kinase 97 Troponin I 0.04 Total Protein 7.1 Albumin 3.9 Lipase 49 L 08/21/18 05:20 RBC 4.06 MCV 95.3 MCHC 34.6 RDW 13.5 MPV 10.2 D Neutrophils % 80.8 D Lymphocytes % 15.5 D Monocytes % 3.6 L Eosinophils % 0.0 D Basophils % 0.1 - Medications Given in the ED: ED Medications Discontinued Medications Generic Name Dose Route Start Last Admin Trade Name Arturo PRN Reason Stop Dose Admin Sodium Chloride 1,000 mls @ 1,000 mls/hr 08/21/18 05:15 08/21/18 05:39 Normal Saline - IV 08/21/18 06:14 1,000 mls/hr ASDIR STA Administration Morphine Sulfate 2 mg 08/21/18 05:15 08/21/18 05:38 Morphine Injection - IVPUSH 08/21/18 05:16 2 mg ONCE ONE Administration Ondansetron HCl 4 mg 08/21/18 05:15 08/21/18 05:39 Zofran Injection IVPUSH 08/21/18 05:16 4 mg ONCE ONE Administration - Consult/PCP Case discussed with consulting physician: Vincent Riddle (Spoke with general surgeon at 10:24 am) <Maria Esther Salcedo - Last Filed: 08/21/18 15:38> Medical Decision Making - Medical Decision Making 08/21/18 10:[address] Reece of general surgery. Will administer IV antibiotics, initiate heparin drip and continue with IV fluid resuscitation. He' ll evaluate the patient at bedside. 08/21/18 10:[address] Contreras of renal. He agrees with aggressive resuscitation. He also states that if the necessity to administer IV contrast is present and it outweighs the potential risk of acute kidney injury and dialysis, the patient should receive IV contrast to rule out mesenteric ischemia. 08/21/18 12:09 IV fluid resuscitation continued and heparin initiated. Patient reports improvement in level of his abdominal discomfort. Repeat lactic acid is noted to be 2.6 (increased from 1.9) reported previously. Findings transmitted to Dr. Reece of surgery. Will continue with current care. Will admit to the ICU. <Ar Beatty - Last Filed: 08/21/18 15:37> - Critical Care Time Total Critical Care Time (minutes): 120 Critical Care Statement: The care of this patient involved high complexity decision making to prevent further life threatening deterioration of the patient 's condition and/or to evaluate & treat vital organ system(s) failure or risk of failure. - Medical Decision Making Paged PCP - Dr. Borges for admission 8:23am, 8:53 (overhead), 9:28am 08/21/18 09:23 <Maria Esther Salcedo - Last Filed: 08/21/18 15:38> *DC/Admit/Observation/Transfer - Discharge Dispostion Decision to Admit order: Yes <Ar Beatty - Last Filed: 08/21/18 15:37> <Maria Esther Salcedo - Last Filed: 08/21/18 15:38> Diagnosis at time of Disposition: Lactic acid acidosis Abdominal pain Qualifiers: Abdominal location: generalized Qualified Code(s): R10.84 - Generalized abdominal pain - Discharge Dispostion Condition at time of disposition: Guarded
[2018-08-21] MEDS ORDERED: DEXTROSE 5%-0.45% SALINE 1,000 ML IV SCH (08:45)
[2018-08-21 09:22] LABS: URINE APPEARANCE CLEAR; URINE BILIRUBIN NEGATIVE (<2.0 mg/dL); URINE COLOR YELLOW; URINE GLUCOSE (UA) 1+ (NEGATIVE); URINE KETONE TRACE (NEGATIVE); URINE LEUK ESTERASE NEGATIVE (NEGATIVE); URINE NITRITE NEGATIVE (NEGATIVE); URINE PROTEIN 2+ (NEGATIVE); URINE UROBILINOGEN NEGATIVE mg/dL (0.2-1.0)
[2018-08-21] MEDS ORDERED: HEPARIN NA (PORCINE) 5,000 UNITS/ML 1ML VIAL IVPUSH PRN ×2 (10:21)
[2018-08-21] MEDS ORDERED: PIPERACILLIN/TAZOB 2.25 GM 2.25 GM in DEXTROSE 5%-WATER - 50 ML IVPB ONE (10:23)
[2018-08-21] MEDS ORDERED: PIPERACILLIN/TAZOB 2.25 GM 2.25 GM/50 ML BAG IVPB ONE (10:47)
[2018-08-21] MEDS ORDERED: HEPARIN INFUSION - 25,000 UNITS/500 ML INFUS.BAG IVPB ONE (10:47)
[2018-08-21] MEDS ORDERED: HEPARIN NA (PORCINE) 5,000 UNITS/ML 1ML VIAL ONE ×2 (10:47→10:48)
[2018-08-21] MEDS: HEPARIN - 25,000 UNIT in SODIUM CHLORIDE 495 ML IV SCH (11:00)
--- NOTE | 2018-08-21 11:37 | CONSULT ---
Consult - text type - Consultation Consultation Note: Renal Consult for LUIS on CKD and contrast nephropathy risk stratification and prophylaxis This is a 82 year old gentleman with hx of Afib on Coumadin, hypertension, hyperlipidemia, IDDM, Liver cancer s/p partial resection, CAD s/p CABG, CKD ( baseline Cr 1.7-2) who presented with Abd pain worsening over the last few days. Pt reports pain initially started on the left flank but then migrated tot the Abd. Pt has not had a BM in 5 days. No N/V. No fever, chills. Reports making urine. No NSAID use. No recent IV contrast exposure. Pt planned for possible CTA to diagnosis etiology of Abd pain. PMhx: as above Allergies: NDKA Family Hx: NC Social Hx: No T/A/D ROS: as per HPI Home Medications Medication Instructions Recorded Carvedilol [Coreg -] 25 mg PO BID 11/03/16 Lantus (10mL VIAL) - 8 units SQ HS 11/03/16 Nitroglycerin Patch [Nitro-Dur 0.4 mg TD DAILY 11/03/16 Patch -] Simvastatin [Zocor -] 20 mg PO HS 11/03/16 Clonidine HCl 0.1 mg PO DAILY 08/21/18 Insulin Aspart [Novolog] 0 unit SQ TID 08/21/18 Olmesartan Medoxomil [Benicar] 10 mg PO HS 08/21/18 Tamsulosin HCl 0.4 mg PO DAILY 08/21/18 Torsemide 20 mg PO DAILY 08/21/18 Warfarin Na [Coumadin] 2 mg PO DAILY 08/21/18 hydrALAZINE HCL [Apresoline -] 10 mg PO BID 08/21/18 Vital Signs Temperature 98.1 F 08/21/18 03:36 Pulse Rate 69 08/21/18 10:13 Respiratory Rate 32 H 08/21/18 10:13 Blood Pressure 154/94 08/21/18 10:13 O2 Sat by Pulse Oximetry (%) 100 08/21/18 10:13 Intake & Output 08/18/18 08/19/18 08/20/18 08/21/18 23:59 23:59 23:59 23:59 Weight 75.75 kg Moderate distress from pain neck supple, no JVD RRR, No M/R CTA, no rales + diffuse tenderness in Abd No LE edema, clubbing or cyanosis No bladder distension CBC, BMP 08/21/18 05:20 08/21/18 05:20 Current Medications Heparin Sodium (Porcine) (Heparin -) 1,000 unit IVPUSH PRN PRN PRN Reason: Heparin Heparin Sodium (Porcine) (Heparin -) 5,000 unit IVPUSH PRN PRN PRN Reason: Heparin Last Admin: 08/21/18 11:00 Dose: 5,000 unit Dextrose/Sodium Chloride (D5-1/2ns -) 1,000 mls @ 100 mls/hr IV ASDIR RAMU Last Admin: 08/21/18 08:56 Dose: 100 mls/hr Heparin Sodium (Porcine) 25, (000 unit/ Sodium Chloride) 500 mls @ 20 mls/hr IV TITR RAMU; Protocol Last Admin: 08/21/18 11:00 Dose: 1,000 unit/hr, 20 mls/hr Sodium Chloride (Normal Saline -) 1,000 mls @ 1,000 mls/hr IV ASDIR STA Stop: 08/21/18 12:08 Last Admin: 08/21/18 11:13 Dose: 1,000 mls/hr 82 year old gentleman with hx of Afib on Coumadin, hypertension, hyperlipidemia , IDDM, Liver cancer s/p partial resection, CAD s/p CABG, CKD (baseline Cr 1.7-2 ) who presented with Abd pain worsening over the last few days. #LUIS on CKD #Contrast nephropathy risk stratification #Contrast nephropathy prophylaxis #Abd pain r/o acute abd vs. bowel ischemia #HTN #DM #CAD with preserved ejection fraction Baseline Cr is 1.7-2 No evidence of obstruction on CT of Abd/Pelvis no evidence of volume overload, would continue aggressive IV hydration with isotonic saline Risk of contrast nephrpathy is 26% and risk of dialysis is 1% based on DANAE calculator developed by Kaushik et al. This risk was explained to the patient and his no Mucomyst given pt has abd pain repeat BMP prior to contrast Continue IVF hydration at 1ml/lg for up to 12 hours post contrast exposure no indication for HE[employer] ANA[employer]ST avoid NSAIDs pain control withhold any SOPHIA/ARB or diuretics for now Surgery following Thank you Ramy Contreras DO
--- NOTE | 2018-08-21 12:22 | CON.CARD ---
Consult Consult Specialty:: Cardiology Referred by:: ER Reason for Consultation:: h/o afib, CAD - History of Present Illness Chief Complaint: abd pain History of Present Illness: 82M h/o afib on coumadin, CAD p/w abd pain. thought to be out of proportion to exam, concern for mesenteric ischemia however CT abd/pelvis with contrast deferred due to LUIS on CKD, noncon CT abd/pelvis no acute pathology. INR subtherapeutic 1.45. Pain had improved initially and now feels worse with rising lactate. currently no chest pain, palps, dyspnea, edema, complains of abd pain and nausea - Past Medical History Cardio/Vascular: Yes: AFIB, CAD, CHF, HTN, Hyperlipdemia Gastrointestinal: Yes: Cancer (primary liver) Hepatobiliary: Yes: Other (primary liver cancer s/p resection and now recurr in lymph nodes on chemo (nexavar)) Renal/: Yes: Renal Inusuff Endocrine: Yes: Diabetes Mellitus (insulin dependent) - Past Surgical History Past Surgical History: Yes: CABG (partial liver resection) - Alcohol/Substance Use Hx Alcohol Use: No - Smoking History Smoking history: Never smoked Have you smoked in the past 12 months: No Home Medications - Allergies Allergies/Adverse Reactions: Allergies Allergy/AdvReac Type Severity Reaction Status Date / Time No Known Drug Allergies Allergy Verified 11/03/16 12:54 - Home Medications Home Medications: Ambulatory Orders Carvedilol [Coreg -] 25 mg PO BID 11/03/16 Lantus (10mL VIAL) - 8 units SQ HS 11/03/16 Nitroglycerin Patch [Nitro-Dur Patch -] 0.4 mg TD DAILY 11/03/16 Simvastatin [Zocor -] 20 mg PO HS 11/03/16 Clonidine HCl 0.1 mg PO DAILY 08/21/18 Insulin Aspart [Novolog] 0 unit SQ TID 08/21/18 Olmesartan Medoxomil [Benicar] 10 mg PO HS 08/21/18 Tamsulosin HCl 0.4 mg PO DAILY 08/21/18 Torsemide 20 mg PO DAILY 08/21/18 Warfarin Na [Coumadin] 2 mg PO DAILY 08/21/18 hydrALAZINE HCL [Apresoline -] 10 mg PO BID 08/21/18 Family Disease History - Family Disease History Family History: Unremarkable Review of Systems - Review of Systems Constitutional: reports: No Symptoms Eyes: reports: No Symptoms HENT: reports: No Symptoms Neck: reports: No Symptoms Cardiovascular: reports: No Symptoms Respiratory: reports: No Symptoms Gastrointestinal: reports: Abdominal Pain, Nausea Genitourinary: reports: No Symptoms Musculoskeletal: reports: No Symptoms Integumentary: reports: No Symptoms Neurological: reports: No Symptoms Endocrine: reports: No Symptoms Hematology/Lymphatic: reports: No Symptoms Psychiatric: reports: No Symptoms Vital Signs: Vital Signs Temperature 98.1 F 08/21/18 03:36 Pulse Rate 69 08/21/18 10:13 Respiratory Rate 32 H 08/21/18 10:13 Blood Pressure 154/94 08/21/18 10:13 O2 Sat by Pulse Oximetry (%) 100 08/21/18 10:13 Constitutional: Yes: Calm, Mild Distress Eyes: Yes: Conjunctiva Clear, EOM Intact HENT: Yes: Atraumatic, Normocephalic Neck: Yes: Supple, Trachea Midline Respiratory: Yes: Regular, CTA Bilaterally Gastrointestinal: Yes: Normal Bowel Sounds, Soft. No: Tenderness Cardiovascular: Yes: Pulse Irregular JVD: No Carotid Bruit: No PMI: Non-Displaced Heart Sounds: Yes: S1, S2 Musculoskeletal: No: Back Pain Extremities: No: Cold Edema: No Peripheral Pulses WNL: Yes Peripheral Pulses: 2+ Left Doralis Pedis, 2+ Right Dorsalis Pedis Integumentary: No: Jaundice Neurological: Yes: Alert, Oriented Psychiatric: No: Agitated - Other Data Labs, Other Data: CBC, BMP 08/21/18 05:20 08/21/18 05:20 INR, PTT INR 1.45 (0.83-1.09) H 08/21/18 05:20 Troponin, BNP 08/21/18 05:20 Troponin I 0.04 Troponin, BNP 08/21/18 05:20 Troponin I 0.04 Assessment/Plan EKG: afib, IVCD, PVCs MIBI 07/05 (pers): no STs; small area apical isch and basal inferolateral wall; mild global LV hypo, EF 46% tele: afib rate controlled Echo 10/07: 1. The left ventricular size is normal. 2. Overall left ventricular systolic function is normal with, an EF between 60 - 65 %. 3. LA pressure is uncertain. 4. No regional wall motion abnormalities were noted (basal inferolateral wall may be mildly hypokinetic). 5. The right ventricle is normal in size and function. 6. Left atrium is severely dilated by volume. 7. There is mild aortic regurgitation. 8. The mitral valve is normal in appearance, with no prolapse, flail leaflet, or tethered motion noted. 9. 2 separate MR jets are present: one directed anteriorly, the other central. The anterior jet hugs the antreior LA wall/interatrial septum and is not seen to wrap around the posterior LA wall. The visual appearance is of moderate mitral regurgitation, however the eccentric nature of the anterior jet may lead to underestimation of MR severity on color jet flow analysis. The peak mitral inflow velocity (0.7 m/sec) makes severe mitral regurgitation less likely. There is no systolic flow reversal present in the pulmonary vein. PISA hemisphere could not be measured. Estimated regurgitant volume by volumetric measurements yields and estimate of 35 cc. 10. Mild tricuspid regurgitation present. 11. Unable to estimate RVSP due to inadequate TR jet spectral doppler profile. a/p: 81 yo with h/o CAD s/p CABG, afib on coumadin CVA, hypertension, hyperlipidemia, IDDM, liver cancer(Chemo, 40% liver removed in 2008), who p/w abd pain Abd pain - manage per GI, surgery pAFib - Rate controlled on coreg, subtherapeutic INR on coumadin - holding PO meds due to nausea, rate currently stable, monitor - on heparin gtt CAD, S/P CABG '05: GAN TO LAD, SVG SEQUENTIAL TO DIAG-->OM; SVG TO RPDA. - on arb, statin at home - holding currently pending GI workup Chronic diastolic HF - currently euvolemic - monitor volume status, receiving IVF - holding diuretics Mod MR - outpatient follow up, stable HTN - holding home meds, monitor BP, stable LORRAINE - cont bipap LUIS on CKD (bl 1.4-1.9) - nephrology consulted, receiving IVF
[2018-08-21 12:35] LABS: URINE HYALINE CAST 14 /lpf
--- NOTE | 2018-08-21 13:00 | HP ---
Admitting History and Physical - Admission History of Present Illness: 82M h/o afib on coumadin, CAD p/w abd pain. thought to be out of proportion to exam, concern for mesenteric ischemia however CT abd/pelvis with contrast deferred due to LUIS on CKD, noncon CT abd/pelvis no acute pathology. INR subtherapeutic 1.45. Pain had improved initially and now feels worse with rising lactate. currently no chest pain, palps, dyspnea, edema, complains of abd pain and nausea - Past Medical History Cardiovascular: Yes: AFIB, CAD, CHF, HTN, Hyperlipdemia Gastrointestinal: Yes: Cancer (primary liver) Hepatobiliary: Yes: Other (primary liver cancer s/p resection and now recurr in lymph nodes on chemo (nexavar)) Renal/: Yes: Renal Inusuff Endocrine: Yes: Diabetes Mellitus (insulin dependent) - Past Surgical History Past Surgical History: Yes: CABG (partial liver resection) - Smoking History Smoking history: Never smoked Have you smoked in the past 12 months: No - Alcohol/Substance Use Hx Alcohol Use: No Home Medications - Allergies Allergies/Adverse Reactions: Allergies Allergy/AdvReac Type Severity Reaction Status Date / Time No Known Drug Allergies Allergy Verified 11/03/16 12:54 - Home Medications Home Medications: Ambulatory Orders Carvedilol [Coreg -] 25 mg PO BID 11/03/16 Lantus (10mL VIAL) - 8 units SQ HS 11/03/16 Nitroglycerin Patch [Nitro-Dur Patch -] 0.4 mg TD DAILY 11/03/16 Simvastatin [Zocor -] 20 mg PO HS 11/03/16 Clonidine HCl 0.1 mg PO DAILY 08/21/18 Insulin Aspart [Novolog] 0 unit SQ TID 08/21/18 Olmesartan Medoxomil [Benicar] 10 mg PO HS 08/21/18 Tamsulosin HCl 0.4 mg PO DAILY 08/21/18 Torsemide 20 mg PO DAILY 08/21/18 Warfarin Na [Coumadin] 2 mg PO DAILY 08/21/18 hydrALAZINE HCL [Apresoline -] 10 mg PO BID 08/21/18 Review of Systems - Review of Systems Cardiovascular: denies: Chest Pain, Palpitations Respiratory: denies: Cough, SOB Gastrointestinal: reports: Abdominal Pain, Bloating. denies: Diarrhea, Vomiting , Vomiting Blood Genitourinary: reports: Flank Pain Physical Examination Vital Signs: Vital Signs Temperature 98.1 F 08/21/18 03:36 Pulse Rate 69 08/21/18 10:13 Respiratory Rate 32 H 08/21/18 10:13 Blood Pressure 154/94 08/21/18 10:13 O2 Sat by Pulse Oximetry (%) 100 08/21/18 10:13 Cardiovascular: Yes: S1, S2 Respiratory: Yes: Regular, CTA Bilaterally Gastrointestinal: Yes: Normal Bowel Sounds, Soft, Tenderness, Epigastrium Edema: No Labs: CBC, BMP 08/21/18 05:20 08/21/18 05:20 Imaging - Results Cat Scan: Report Reviewed Problem List - Problems (1) Abdominal pain Assessment/Plan: -R/O ISCHEMIA -AC WITH HEPARIN -SURGERY ON BOARD Code(s): R10.9 - UNSPECIFIED ABDOMINAL PAIN Qualifiers: Abdominal location: generalized Qualified Code(s): R10.84 - Generalized abdominal pain (2) Gastric cancer Assessment/Plan: -FOLLOW UP AT [facility] -NO RECENT ISSUES REPORTED Code(s): C16.9 - MALIGNANT NEOPLASM OF STOMACH, UNSPECIFIED (3) Lactic acid acidosis Assessment/Plan: -CULTURES -IV ABX -ID CONSULT -IVF Code(s): E87.2 - ACIDOSIS (4) Afib Assessment/Plan: -ON AC -MONITOR Code(s): I48.91 - UNSPECIFIED ATRIAL FIBRILLATION (5) Diabetes mellitus, insulin dependent (IDDM), uncontrolled Assessment/Plan: -BGM -ENDO Code(s): E10.65 - TYPE 1 DIABETES MELLITUS WITH HYPERGLYCEMIA
[2018-08-21] MEDS ORDERED: LACTATED RINGERS SOLUTION 1,000 ML/1,000 ML INFUS.BAG IV SCH (13:30)
[2018-08-21 13:39] LABS: BASO % 0.1 % (0-2.0); EOS % 0.1 % (0-4.5); HEMATOCRIT 34.8 % (35.4-49); HEMOGLOBIN 11.9 GM/dL (11.7-16.9); LYMPH % 12.4 % (8-40); MCH 33.1 pg (25.7-33.7); MCHC 34.2 g/dl (32.0-35.9); MEAN PLT VOLUME 10.7 fl (7.5-11.1); MONO % 6.8 % (3.8-10.2); NEUT % 80.6 % (42.8-82.8); PLATELET COUNT 89 K/MM3 (134-434); RBC 3.59 M/mm3 (4.00-5.60); RDW 13.7 % (11.9-15.9); WHITE BLOOD COUNT 7.7 K/mm3 (4.0-10.0)
[2018-08-21] MEDS ORDERED: morphine CARPU-JECT 2 MG/1 ML DISP.SYRIN IVPUSH ONE (13:41)
--- NOTE | 2018-08-21 14:56 | EKG ---
Test Reason : Blood Pressure : / mmHG Vent. Rate : 093 BPM Atrial Rate : 038 BPM P-R Int : 000 ms QRS Dur : 140 ms QT Int : 382 ms P-R-T Axes : 000 -31 111 degrees QTc Int : 474 ms ATRIAL FIBRILLATION WITH PREMATURE VENTRICULAR OR ABERRANTLY CONDUCTED COMPLEXES LEFT AXIS DEVIATION NON-SPECIFIC INTRA-VENTRICULAR CONDUCTION BLOCK T WAVE ABNORMALITY, CONSIDER LATERAL ISCHEMIA ABNORMAL ECG WHEN COMPARED WITH ECG OF 04-NOV-2016 10:40, PREMATURE VENTRICULAR COMPLEXES ARE NO LONGER PRESENT PREMATURE ATRIAL COMPLEXES ARE NO LONGER PRESENT Confirmed by MARIANO SOUZA, NILO ([id number]) on 08/21/2018 2:56:21 PM Referred By: Confirmed By:NILO QUINTANA MD
--- NOTE | 2018-08-21 15:17 | CONSULT ---
Consult - History of Present Illness History of Present Illness: 82yo M with PMH of HTN, HLD, DM, Liver cancer s/p chemotherapy and partial hepatectomy in 2008, CVA, CAD s/p CABG in 2003, Basal cell carcinoma, Afib on Coumadin complaining of abdominal pain x 3 days. Patient describes the pain as a pressure and rated 7-8/10. The pain is located diffusely and comes and goes with no apparent relieving or exacerbating factors. Patient reports constipation for the last five days. He endorses medication adherence but did not take his coumadin last week for Mohs procedure below his left eye. No nausea , vomiting, dysuria, or hematuria. No fevers, chills, chest pain, or shortness of breath. PMH: As above Allergies: NKDA Past Surgical History: CABG 2003, partial hepatectomy 2008, Carotid surgery x > 15 years ago Social History: Some tobacco use more than fifty years ago; occasional social ETOH; no drug use. Lives at home with his . 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 PCP: Dr. Borges Oliving Machine Operator: Dr. Sanchez - Past Medical History Cardio/Vascular: Yes: AFIB, CAD, CHF, HTN, Hyperlipdemia Gastrointestinal: Yes: Cancer (primary liver) Hepatobiliary: Yes: Other (primary liver cancer s/p resection and now recurr in lymph nodes on chemo (nexavar)) Renal/: Yes: Renal Inusuff Endocrine: Yes: Diabetes Mellitus (insulin dependent) - Past Surgical History Past Surgical History: Yes: CABG (partial liver resection) - Alcohol/Substance Use Hx Alcohol Use: No - Smoking History Smoking history: Never smoked Have you smoked in the past 12 months: No Home Medications - Allergies Allergies/Adverse Reactions: Allergies Allergy/AdvReac Type Severity Reaction Status Date / Time No Known Drug Allergies Allergy Verified 11/03/16 12:54 - Home Medications Home Medications: Ambulatory Orders Carvedilol [Coreg -] 25 mg PO BID 11/03/16 Lantus (10mL VIAL) - 8 units SQ HS 11/03/16 Nitroglycerin Patch [Nitro-Dur Patch -] 0.4 mg TD DAILY 11/03/16 Simvastatin [Zocor -] 20 mg PO HS 11/03/16 Clonidine HCl 0.1 mg PO DAILY 08/21/18 Insulin Aspart [Novolog] 0 unit SQ TID 08/21/18 Olmesartan Medoxomil [Benicar] 10 mg PO HS 08/21/18 Tamsulosin HCl 0.4 mg PO DAILY 08/21/18 Torsemide 20 mg PO DAILY 08/21/18 Warfarin Na [Coumadin] 2 mg PO DAILY 08/21/18 hydrALAZINE HCL [Apresoline -] 10 mg PO BID 08/21/18 Review of Systems Findings/Remarks: Constitutional: no fever, no chills HEENT: no throat pain, no dysphagia Cardiovascular: no chest pain, no palpitations Respiratory: no cough, no shortness of breath Gastrointestinal: +abdominal pain, no nausea, no vomiting, +constipation Genitourinary: no dysuria, no frequency Musculoskeletal: no myalgia, no arthralgia Skin: no rash, no itching Neurologic: no headache, no dizziness Physical Exam Vital Signs: Vital Signs Temperature 97.6 F 08/21/18 13:11 Pulse Rate 84 08/21/18 14:42 Respiratory Rate 22 H 08/21/18 14:42 Blood Pressure 159/70 08/21/18 14:42 O2 Sat by Pulse Oximetry (%) 99 08/21/18 14:42 General: Awake, alert, and fully oriented, in no acute distress Head: No signs of trauma Eyes: EOMI, sclera anicteric ENT: Dry mucus membranes Neck: Supple Lungs: Expiratory rhonchi at the bases Cardio: Irregular rhythm, S1 and S2 present Abdomen: Nontender to palpation. Soft, nondistended. No guarding, no rebound, no masses. Surgical scar present Extremities: Normal range of motion, multiple ecchymoses present SKIN: Warm, Dry, normal turgor Neurologic: Cranial nerves II through XII grossly intact. Normal speech Labs: CBC, BMP 08/21/18 13:00 Imaging - Results Chest X-ray: Report Reviewed (No evidence of pneumonia, CHF, pneumothorax, or pleural effusion) Cat Scan: Report Reviewed ( As on a previous abdomen/pelvic CT study of 2013 small bilateral pleural effusions are noted ( versus being recurrent in nature). Mild left basilar discoid atelectasis. Left atrial dilatation is seen. No evidence of pneumoperitoneum, free intraperitoneal fluid or bowel obstruction. Status post left hepatic lobe resection and cholecystectomy as on the prior exam. There is no definite biliary tract dilatation. There is at least moderate diffuse fatty involution of the pancreas. The spleen, adrenal glands and kidneys demonstrate no obvious noncontrast pathology. Mild chronic bilateral perinephric soft tissue stranding is seen. There is no aortic aneurysm. No obvious lymphadenopathy is noted. There is no definite CT evidence of appendicitis or diverticulitis. No gross noncontrast small bowel pathology is seen. Moderate right-sided colonic fecal retention. The visualized osseous structures demonstrate no gross acute abnormality. IMPRESSION: No definite CT findings of acute pathology are identified involving the abdomen/pelvis. Small bilateral pleural effusions are noted. Cardiomegaly. As on a 2013 CT study note is made of left hepatic lobe resection and cholecystectomy.) Assessment/Plan ASSESSMENT 82yo M with PMH of HTN, HLD, DM, Liver cancer s/p chemotherapy and partial hepatectomy in 2008, CVA, CAD s/p CABG in 2003, Basal cell carcinoma, Afib on Coumadin complaining of abdominal pain x 3 days. CTAP suspicious for ischemic colitis vs mesenteric ischemia. PLAN CV Afib, rate currently stable -subtherapeutic INR=1.45 -EKG, rate 93, QTc 474, atrial fibrillation with a left anterior fascicular block -on heparin drip -hold home coumadin Chronic HTN -monitor BP -continue home carvedilol 25mg, hydralazine 10mg, Nitroglycerin 0.4mg/hr, Clonidine 0.1mg/24hr Chronic diastolic HF -Small bilateral pleural effusions noted on CT -hold home olmesartan 20mg given LUIS and fluid hydration Chronic HLD -continue home simvastatin 20mg given patient PULM Chronic mild LORRAINE, per chart review -Continue therapy if patient uses such at home (unknown at this time of documentation) GI Abdominal pain, suspicious for ischemic colitis vs mesenteric ischemia -CTAP without contrast given patient's LUIS shows calcification of the superior mesenteric artery -Previous abdominal exam documented as "pain out of proportion" -Heparin drip for anticoagulation -Serial abdominal exam q1h -Surgery consulted (Dr. Riddle, ) RENAL LUIS -Renal following -BUN/Cr=70/2.3 (Baseline Cr is 1.7-2) -CT abdomen/pelvis without contrast in the ED -Per renal: continue aggressive IV hydration with isotonic saline. -Risk of contrast nephropathy is 26% and risk of dialysis is 1% based on DANAE calculator developed by Kaushik et al. Repeat BMP prior to contrast; Continue IVF hydration at 1ml/lg for up to 12 hours post contrast exposure -Avoid NSAIDs and SOPHIA/ARB or diuretics for now ENDO Chronic DM -BGM, NISS ID Lactic acidosis, likely secondary to mesenteric ischemia vs. unknown source of infection -Lactate=2.6 (from 1.9) -qSOFA=1 for RR -Patient afebrile, not tachycardic, not hypotensive, without leukocytosis -IV Zosyn, renally dosed -ID consulted -IV hydration FEN -LR @100cc/hr -Monitor electrolytes, replete as needed -NPO except for po medications -PRN Morphine 2mg q4hr ordered for -05/01 pain Prophylaxis -VTE: SCDs, on heparin gtt -GI ppx: no need for now #Disposition: Monitor in the ICU #Full Code
[2018-08-21 15:30] LABS: ALBUMIN 3.1 g/dl (3.4-5.0); ALK PHOS 78 U/L (45-117); ANION GAP 9 MMOL/L (8-16); BLOOD UREA NITROGEN 65 mg/dL (7-18); CALCIUM 8.1 mg/dL (8.5-10.1); CHLORIDE 107 mmol/L (98-107); CO2 23 mmol/L (21-32); CREATININE 2.2 mg/dL (0.55-1.3); POTASSIUM 5.5 mmol/L (3.5-5.1); SGOT/AST 24 U/L (15-37); SGPT/ALT 21 U/L (13-61); SODIUM 138 mmol/L (136-145)
[2018-08-21 15:35] LABS: GLUCOSE,RANDOM 304 mg/dL (74-106)
[2018-08-21] MEDS ORDERED: PIPERACILLIN/TAZOB 2.25 GM 2.25 GM in DEXTROSE 5%-WATER - 50 ML IVPB SCH ×2 (16:00→18:00)
[2018-08-21] MEDS ORDERED: MORPHINE SULFATE 2 MG/ML VIAL IVPUSH PRN (16:02)
--- NOTE | 2018-08-21 16:40 | PN ---
Progress Note (short form) - Note Progress Note: ID consult dictated imp/reccd 82 yo man pmh afib, liver cancer s/p partion hepatectomy, history of cabg admitted with abdominal pain , nausea and constipation last BM on Sunday +chronic constipation no fevers or chills no dysuria no cough has had intermittent abdominal pain in the ED currently resolved elevated lactic acid r/o mesenteric ischemia - f/u per surgery who has seen him already earlier today cultures, zosyn adjusted for ericka Problem List - Problems (1) Abdominal pain Code(s): R10.9 - UNSPECIFIED ABDOMINAL PAIN Qualifiers: Abdominal location: generalized Qualified Code(s): R10.84 - Generalized abdominal pain (2) Lactic acid acidosis Code(s): E87.2 - ACIDOSIS
[2018-08-21] MEDS: SODIUM CHLORIDE 1,000 ML IV SCH (17:01)
[2018-08-21] MEDS: PIPERACILLIN/TAZOB 2.25 GM 2.25 GM in DEXTROSE 5%-WATER - 50 ML IVPB SCH ×2 (17:01→21:08)
--- NOTE | 2018-08-21 17:43 | CONS ---
DATE OF CONSULTATION: DATE OF DICTATION: 08/21/2018 INFECTIOUS DISEASE CONSULTATION REQUESTING PHYSICIAN: Idris Borges M.D. CONSULTING PHYSICIAN: Sarah Gordon M.D. HISTORY OF PRESENT ILLNESS: I am asked to see the patient for an elevated lactic acid. This is an 82-year-old man, past medical history of atrial fibrillation, diabetes, liver cancer status post partial hepatectomy in 2008, quadruple bypass, who presents with abdominal pain, nausea for the last several days. He has chronic constipation and his last bowel movement was on Sunday. He presents to the emergency room with these complaints. He has no fevers or chills. He does have nausea but no vomiting. In the ER, he was evaluated and he had a CT of his abdomen and pelvis done. Given his abdominal pain which showed no evidence of pneumoperitoneum, free intraperitoneal fluid or bowel obstruction, it was a noncontrast study. A concern was raised for possible mesenteric ischemia. He was not given contrast because he has some renal insufficiency. He had moderate right sided colonic fecal retention as well. I am asked to see him because he has an elevated lactic acid. PAST MEDICAL HISTORY: Notable for hypertension, hyperlipidemia, diabetes. He is status post CVA, has a history of coronary artery disease, liver cancer. He apparently has a remote history 15 years back of MRSA bacteremia, for which he was treated successfully. He is currently resting comfortably and has no abdominal pain. His medications at home include Coreg, Lantus insulin, nitroglycerin patch, Zocor, clonidine, , warfarin, furosemide, tamsulosin and Benicar. 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 ALLERGIES: He has no known drug allergies. SOCIAL HISTORY: There is no history of recent travel. There is no history of tobacco, alcohol, or drug use. He lives with his . REVIEW OF SYSTEMS: As per HPI. Has no dysuria or trouble urinating. He has no vomiting but has had nausea and his constipation is unusual. Usually he has a bowel movement every 2-3 days, but now he has not had a bowel movement in over 4 . PHYSICAL EXAMINATION: VITAL SIGNS: Temperature 98.7, pulse 85, blood pressure 152/75, respiratory rate 20, saturating 99% on 2 L. HEENT: Normocephalic. Eyes are anicteric. NECK: Supple. LUNGS: Clear to auscultation. HEART: Regular rate and rhythm. ABDOMEN: Soft, currently is nontender. EXTREMITIES: Without edema. LABORATORY: Notable for white count of 7.7, hemoglobin 11.9, platelets are 89,000. His BUN and creatinine are 65 and 2.2. In June of this year there were 39 and 1.2. LFTs are normal. Urinalysis is negative. Chest x-ray is negative. CAT scan findings are as previously stated. IMPRESSION: In summary, this is an 82-year-old man with abdominal pain that is currently resolved with an elevated lactic acid. His urinalysis is negative. He has some evidence of constipation, possibility of mesenteric ischemic has been raised. Follow up for surgery has seen him already earlier today in the emergency room. Would obtain cultures and adjust his Zosyn for acute kidney injury. Further recommendations to follow. Jannette [id number]
[2018-08-21] MEDS: INSULIN SLIDING SCALE (NOVOLOG) 1 VIAL SQ SCH ×2 (18:55→21:29)
[2018-08-21 19:29] LABS: BASO % 0.2 % (0-2.0); HEMATOCRIT 33.8 % (35.4-49); HEMOGLOBIN 11.6 GM/dL (11.7-16.9); LYMPH % 14.9 % (8-40); MCH 33.4 pg (25.7-33.7); MCHC 34.4 g/dl (32.0-35.9); MEAN CELL VOLUME 97.1 fl (80-96); MEAN PLT VOLUME 9.9 fl (7.5-11.1); MONO % 10.7 % (3.8-10.2); NEUT % 74.2 % (42.8-82.8); PLATELET COUNT 98 K/MM3 (134-434); RBC 3.48 M/mm3 (4.00-5.60); RDW 13.9 % (11.9-15.9); WHITE BLOOD COUNT 6.8 K/mm3 (4.0-10.0)
[2018-08-21] MEDS ORDERED: PIPERACILLIN/TAZOBACTAM 2.25 GM VIAL IVPB ONE (20:20)
[2018-08-21] MEDS ORDERED: DEXTROSE 5%-WATER - 50 ML IVPB ONE (20:21)
[2018-08-21] MEDS: CHLORHEXIDINE GLUCONATE 4% CLEANSER FOR DECOLONIZATION TP SCH (21:11)
[2018-08-21] MEDS: MUPIROCIN 2% TOPICAL OINTMENT FOR DECOLONIZATION NS SCH (21:12)
[2018-08-21] MEDS: CARVEDILOL 25 MG TABLET (FP) PO SCH (21:29)
[2018-08-22] MEDS ORDERED: PIPERACILLIN/TAZOBACTAM 2.25 GM VIAL IVPB ONE ×4 (01:48→19:44)
[2018-08-22] MEDS ORDERED: DEXTROSE 5%-WATER - 50 ML IVPB ONE ×4 (01:49→19:45)
[2018-08-22] MEDS: PIPERACILLIN/TAZOB 2.25 GM 2.25 GM in DEXTROSE 5%-WATER - 50 ML IVPB SCH ×4 (02:06→20:50)
[2018-08-22] MEDS: INSULIN SLIDING SCALE (NOVOLOG) 1 VIAL SQ SCH ×4 (06:06→21:59)
--- NOTE | 2018-08-22 06:08 | CONSULT ---
Consult Consult Specialty:: surgery Reason for Consultation:: abdominal pain - History of Present Illness Chief Complaint: Abdominal fullness and left flank pain History of Present Illness: 82M h/o afib on coumadin, CAD p/w abd pain. thought to be out of proportion to exam, concern for mesenteric ischemia however CT abd/pelvis with contrast deferred due to LUIS on CKD, noncon CT abd/pelvis no acute pathology. INR subtherapeutic 1.45. Pain had improved initially and now feels worse with rising lactate. currently no chest pain, palps, dyspnea, edema, complains of abd pain and nausea, Patient described pain ad mostly on the left flank radiating to the back. He reports a history of kidney stones in the past and chronic constipation - Past Medical History Cardio/Vascular: Yes: AFIB, CAD, CHF, HTN, Hyperlipdemia Gastrointestinal: Yes: Cancer (primary liver) Hepatobiliary: Yes: Other (primary liver cancer s/p resection and now recurr in lymph nodes on chemo (nexavar)) Renal/: Yes: Renal Inusuff Endocrine: Yes: Diabetes Mellitus (insulin dependent) - Past Surgical History Past Surgical History: Yes: CABG (partial liver resection) - Alcohol/Substance Use Hx Alcohol Use: No - Smoking History Smoking history: Never smoked Have you smoked in the past 12 months: No Home Medications - Allergies Allergies/Adverse Reactions: Allergies Allergy/AdvReac Type Severity Reaction Status Date / Time No Known Drug Allergies Allergy Verified 11/03/16 12:54 - Home Medications Home Medications: Ambulatory Orders Carvedilol [Coreg -] 25 mg PO BID 11/03/16 Lantus (10mL VIAL) - 8 units SQ HS 11/03/16 Nitroglycerin Patch [Nitro-Dur Patch -] 0.4 mg TD DAILY 11/03/16 Simvastatin [Zocor -] 20 mg PO HS 11/03/16 Clonidine HCl 0.1 mg PO DAILY 08/21/18 Insulin Aspart [Novolog] 0 unit SQ TID 08/21/18 Olmesartan Medoxomil [Benicar] 10 mg PO HS 08/21/18 Tamsulosin HCl 0.4 mg PO DAILY 08/21/18 Torsemide 20 mg PO DAILY 08/21/18 Warfarin Na [Coumadin] 2 mg PO DAILY 08/21/18 hydrALAZINE HCL [Apresoline -] 10 mg PO BID 08/21/18 Physical Exam Vital Signs: Vital Signs Temperature 99.1 F 08/21/18 21:00 Pulse Rate 71 08/22/18 05:00 Respiratory Rate 14 08/22/18 05:00 Blood Pressure 127/60 08/22/18 05:00 O2 Sat by Pulse Oximetry (%) 100 08/21/18 21:00 Labs: CBC, BMP 08/21/18 18:30 08/21/18 14:18 Imaging - Results Cat Scan: Report Reviewed, Image Reviewed Problem List - Problems (1) Abdominal pain Code(s): R10.9 - UNSPECIFIED ABDOMINAL PAIN Qualifiers: Abdominal location: generalized Qualified Code(s): R10.84 - Generalized abdominal pain Assessment/Plan 82 yr old male with Hx of Afib presenting with complaints of abdominal pain admitted out of concern for mesenteric ischemia, Mildly elevated lactic acid. Ct scan shows evidence of mesenteric vascular disease but no evidence of acute ischemia albeit it was done without contrast, Although patient is for mesentric ischemia currently I have a low degree of suspicion. Continue to observe Repeat Labs Consider repeating CT scan if symptoms progress, although they appear to be resolving. No need for surgical intervention at this time, Will follow,
[2018-08-22 08:15] LABS: BASO % 0.5 % (0-2.0); EOS % 0.6 % (0-4.5); HEMATOCRIT 32.1 % (35.4-49); LYMPH % 14.6 % (8-40); MCH 33.3 pg (25.7-33.7); MCHC 34.3 g/dl (32.0-35.9); MEAN CELL VOLUME 96.9 fl (80-96); MEAN PLT VOLUME 10.6 fl (7.5-11.1); NEUT % 75.3 % (42.8-82.8); PLATELET COUNT 70 K/MM3 (134-434); RBC 3.31 M/mm3 (4.00-5.60)
[2018-08-22] MEDS: TAMSULOSIN HCL 0.4 MG CAP PO SCH (08:48)
--- NOTE | 2018-08-22 09:53 | PN ---
Progress Note, Physician Chief Complaint: AWAKE ALERT EVENT AND NOTES REVIEWED DENIES CHEST PAIN ABD PAIN STABLE - Current Medication List Current Medications: Active Medications Carvedilol (Coreg -) 25 mg PO BID [facility] Last Admin: 08/21/18 21:29 Dose: 25 mg Chlorhexidine Gluconate (Hibiclens For Decolonization -) 1 applic TP HS [facility] Last Admin: 08/21/18 21:11 Dose: 1 applic Clonidine (Catapres -) 0.1 mg PO DAILY [facility] Heparin Sodium (Porcine) (Heparin -) 1,000 unit IVPUSH PRN PRN PRN Reason: Heparin Heparin Sodium (Porcine) (Heparin -) 5,000 unit IVPUSH PRN PRN PRN Reason: Heparin Last Admin: 08/21/18 11:00 Dose: 5,000 unit Heparin Sodium (Porcine) 25, (000 unit/ Sodium Chloride) 500 mls @ 20 mls/hr IV TITR [facility]; Protocol Last Titration: 08/22/18 06:06 Dose: 400 unit/hr, 8 mls/hr Piperacillin Sod/Tazobactam (Sod 2.25 gm/ Dextrose) 50 mls @ 100 mls/hr IVPB Q6H-IV [facility]; Protocol Last Admin: 08/22/18 08:48 Dose: 100 mls/hr Sodium Chloride (Normal Saline -) 1,000 mls @ 100 mls/hr IV ASDIR [facility] Last Admin: 08/21/18 17:01 Dose: 100 mls/hr Insulin Aspart (Novolog Vial Sliding Scale -) 1 vial SQ ACHS [facility]; Protocol Last Admin: 08/22/18 06:06 Dose: Not Given Morphine Sulfate (Morphine Sulfate) 2 mg IVPUSH Q4H PRN PRN Reason: PAIN LEVEL 7 - 10 Mupirocin (Bactroban Ointment (For Decolonization) -) 1 applic NS BID [facility] Stop: 08/26/18 21:59 Last Admin: 08/21/18 21:12 Dose: 1 applic Tamsulosin HCl (Flomax -) 0.4 mg PO DAILY@0830 [facility] Last Admin: 08/22/18 08:48 Dose: 0.4 mg - Objective Vital Signs: Vital Signs Temperature 98.2 F 08/22/18 08:00 Pulse Rate 83 08/22/18 08:00 Respiratory Rate 20 08/22/18 08:00 Blood Pressure 159/71 08/22/18 08:00 O2 Sat by Pulse Oximetry (%) 100 08/22/18 08:56 Constitutional: Yes: Mild Distress Eyes: Yes: WNL HENT: Yes: WNL Neck: Yes: WNL Cardiovascular: Yes: Regular Rate and Rhythm Respiratory: Yes: WNL, On Nasal O2 Gastrointestinal: Yes: Abdomen, Obese Genitourinary: Yes: WNL Musculoskeletal: Yes: WNL Extremities: Yes: WNL Edema: No Integumentary: Yes: WNL Wound/Incision: Yes: Clean/Dry Neurological: Yes: WNL ...Motor Strength: WNL Psychiatric: Yes: WNL Labs: CBC, BMP 08/22/18 07:43 INR, PTT INR 1.45 (0.83-1.09) H 08/21/18 05:20 Problem List - Problems (1) Acute mesenteric ischemia Code(s): K55.059 - ACUTE ISCHEMIA OF INTESTINE, PART AND EXTENT UNSPECIFIED (2) Abdominal pain Code(s): R10.9 - UNSPECIFIED ABDOMINAL PAIN Qualifiers: Abdominal location: generalized Qualified Code(s): R10.84 - Generalized abdominal pain (3) Afib Code(s): I48.91 - UNSPECIFIED ATRIAL FIBRILLATION (4) Anemia Code(s): D64.9 - ANEMIA, UNSPECIFIED (5) Asymptomatic myocardial ischemia Code(s): I25.6 - SILENT MYOCARDIAL ISCHEMIA (6) Diabetes mellitus, insulin dependent (IDDM), uncontrolled Code(s): E10.65 - TYPE 1 DIABETES MELLITUS WITH HYPERGLYCEMIA Assessment/Plan HEPARIN IV FOR MESENTERIC ISCHEMIA CAN NOT HAVE CT ANGIO DUE TO CRI SYMPTOMS IMPROVING SURGERY AND ICU FOLLOW UP PAIN CONTROL NPO
--- NOTE | 2018-08-22 09:58 | PN ---
Progress Note, Physician - Current Medication List Current Medications: Active Medications Carvedilol (Coreg -) 25 mg PO BID [facility] Last Admin: 08/21/18 21:29 Dose: 25 mg Chlorhexidine Gluconate (Hibiclens For Decolonization -) 1 applic TP HS [facility] Last Admin: 08/21/18 21:11 Dose: 1 applic Clonidine (Catapres -) 0.1 mg PO DAILY [facility] Heparin Sodium (Porcine) (Heparin -) 1,000 unit IVPUSH PRN PRN PRN Reason: Heparin Heparin Sodium (Porcine) (Heparin -) 5,000 unit IVPUSH PRN PRN PRN Reason: Heparin Last Admin: 08/21/18 11:00 Dose: 5,000 unit Heparin Sodium (Porcine) 25, (000 unit/ Sodium Chloride) 500 mls @ 20 mls/hr IV TITR [facility]; Protocol Last Titration: 08/22/18 06:06 Dose: 400 unit/hr, 8 mls/hr Piperacillin Sod/Tazobactam (Sod 2.25 gm/ Dextrose) 50 mls @ 100 mls/hr IVPB Q6H-IV [facility]; Protocol Last Admin: 08/22/18 08:48 Dose: 100 mls/hr Sodium Chloride (Normal Saline -) 1,000 mls @ 100 mls/hr IV ASDIR [facility] Last Admin: 08/21/18 17:01 Dose: 100 mls/hr Insulin Aspart (Novolog Vial Sliding Scale -) 1 vial SQ ACHS [facility]; Protocol Last Admin: 08/22/18 06:06 Dose: Not Given Morphine Sulfate (Morphine Sulfate) 2 mg IVPUSH Q4H PRN PRN Reason: PAIN LEVEL 7 - 10 Mupirocin (Bactroban Ointment (For Decolonization) -) 1 applic NS BID [facility] Stop: 08/26/18 21:59 Last Admin: 08/21/18 21:12 Dose: 1 applic Tamsulosin HCl (Flomax -) 0.4 mg PO DAILY@0830 [facility] Last Admin: 08/22/18 08:48 Dose: 0.4 mg - Objective Vital Signs: Vital Signs Temperature 98.2 F 08/22/18 08:00 Pulse Rate 83 08/22/18 08:00 Respiratory Rate 20 08/22/18 08:00 Blood Pressure 159/71 08/22/18 08:00 O2 Sat by Pulse Oximetry (%) 100 08/22/18 08:56 Labs: CBC, BMP 08/22/18 07:43 INR, PTT INR 1.45 (0.83-1.09) H 08/21/18 05:20
[2018-08-22 09:59] LABS: MAGNESIUM 2.4 mg/dL (1.8-2.4); PHOSPHOROUS 4.3 mg/dL (2.5-4.9)
[2018-08-22 10:06] LABS: GLUCOSE,RANDOM 132 mg/dL (74-106)
[2018-08-22 10:07] LABS: ALBUMIN 3.1 g/dl (3.4-5.0); ANION GAP 12 MMOL/L (8-16); BILIRUBIN,TOTAL 0.9 mg/dL (0.2-1); BLOOD UREA NITROGEN 64 mg/dL (7-18); CALCIUM 7.9 mg/dL (8.5-10.1); CHLORIDE 112 mmol/L (98-107); CO2 19 mmol/L (21-32); CREATININE 2.1 mg/dL (0.55-1.3); POTASSIUM 4.8 mmol/L (3.5-5.1); SGOT/AST 31 U/L (15-37); SODIUM 143 mmol/L (136-145); TOT PROT 5.8 g/dl (6.4-8.2)
[2018-08-22 10:08] LABS: ALK PHOS 75 U/L (45-117); SGPT/ALT 23 U/L (13-61)
[2018-08-22] MEDS: MUPIROCIN 2% TOPICAL OINTMENT FOR DECOLONIZATION NS SCH ×2 (10:25→21:58)
[2018-08-22] MEDS: CARVEDILOL 25 MG TABLET (FP) PO SCH ×2 (10:25→21:58)
[2018-08-22] MEDS: HEPARIN - 25,000 UNIT in SODIUM CHLORIDE 495 ML IV SCH (10:30)
[2018-08-22] MEDS: cloNIDine HCL 0.1 MG TABLET PO SCH (10:34)
--- NOTE | 2018-08-22 10:51 | PN ---
Progress Note (short form) - Note Progress Note: s: no cp sob palps dizzy, abd pain o: Vital Signs Period Temp Pulse Resp BP Sys/Gregory Pulse Ox Last 24 Hr 97.6 F-99.1 F 58-85 12-24 103-159/48-76 99-100 Constitutional: Yes: Calm, Mild Distress Eyes: Yes: Conjunctiva Clear Neck: Yes: Supple, Trachea Midline Respiratory: Yes: Regular, CTA Bilaterally Gastrointestinal: Yes: Normal Bowel Sounds, Soft. No: Tenderness Cardiovascular: Yes: Pulse Irregular JVD: No Heart Sounds: Yes: S1, S2 Musculoskeletal: No: Back Pain Extremities: No: Cold Edema: No Peripheral Pulses: 2+ Left Doralis Pedis, 2+ Right Dorsalis Pedis Integumentary: No: Jaundice Neurological: Yes: Alert, Oriented Psychiatric: No: Agitated Current Medications Generic Name Dose Route Start Last Admin Trade Name Freq PRN Reason Stop Dose Admin Carvedilol 25 mg 08/21/18 22:00 08/22/18 10:25 Coreg - PO 25 mg BID [facility] Administration Chlorhexidine Gluconate 1 applic 08/21/18 22:00 08/21/18 21:11 Hibiclens For Decolonization - TP 1 applic HS [facility] Administration Clonidine 0.1 mg 08/22/18 10:00 08/22/18 10:34 Catapres - PO 0.1 mg DAILY [facility] Administration Heparin Sodium (Porcine) 1,000 unit 08/21/18 10:21 Heparin - IVPUSH PRN PRN Heparin Heparin Sodium (Porcine) 5,000 unit 08/21/18 10:21 08/21/18 11:00 Heparin - IVPUSH 5,000 unit PRN PRN Administration Heparin Heparin Sodium (Porcine) 25, 500 mls @ 20 mls/hr 08/21/18 10:30 08/22/18 06: 06 000 unit/ Sodium Chloride IV 400 unit/hr TITR [facility] 8 mls/hr Titration Protocol 1,000 UNIT/HR Piperacillin Sod/Tazobactam 50 mls @ 100 mls/hr 08/21/18 16:45 08/22/18 08:48 Sod 2.25 gm/ Dextrose IVPB 100 mls/hr Q6H-IV [facility] Administration Protocol Sodium Chloride 1,000 mls @ 100 mls/hr 08/21/18 16:45 08/21/18 17:01 Normal Saline - IV 100 mls/hr ASDIR [facility] Administration Insulin Aspart 1 vial 08/21/18 16:30 08/22/18 06:06 Novolog Vial Sliding Scale - SQ Not Given ACHS [facility] Protocol Morphine Sulfate 2 mg 08/21/18 16:02 Morphine Sulfate IVPUSH Q4H PRN PAIN LEVEL 7 - 10 Mupirocin 1 applic 08/21/18 22:00 08/22/18 10:25 Bactroban Ointment (For Decolonization) - NS 08/26/18 21:59 1 applic BID [facility] Administration Tamsulosin HCl 0.4 mg 08/22/18 08:30 08/22/18 08:48 Flomax - PO 0.4 mg DAILY@0830 [facility] Administration Laboratory Last Values WBC 6.0 K/mm3 (4.0-10.0) 08/22/18 07:43 RBC 3.31 M/mm3 (4.00-5.60) L 08/22/18 07:43 Hgb 11.0 GM/dL (11.7-16.9) L 08/22/18 07:43 Hct 32.1 % (35.4-49) L 08/22/18 07:43 MCV 96.9 fl (80-96) H 08/22/18 07:43 MCH 33.3 pg (25.7-33.7) 08/22/18 07:43 MCHC 34.3 g/dl (32.0-35.9) 08/22/18 07:43 RDW 14.0 % (11.9-15.9) 08/22/18 07:43 Plt Count 70 K/MM3 (134-434) L D 08/22/18 07:43 MPV 10.6 fl (7.5-11.1) 08/22/18 07:43 Absolute Neuts (auto) 4.5 K/mm3 (1.5-8.0) 08/22/18 07:43 Neutrophils % 75.3 % (42.8-82.8) 08/22/18 07:43 Lymphocytes % 14.6 % (8-40) 08/22/18 07:43 Monocytes % 9.0 % (3.8-10.2) 08/22/18 07:43 Eosinophils % 0.6 % (0-4.5) D 08/22/18 07:43 Basophils % 0.5 % (0-2.0) 08/22/18 07:43 Nucleated RBC % 0 % (0-0) 08/22/18 07:43 PT with INR 17.20 SEC (9.7-13.0) H 08/21/18 05:20 INR 1.45 (0.83-1.09) H 08/21/18 05:20 PTT (Actin FS) 154.5 SECONDS (25.2-36.5) H 08/22/18 02:07 Sodium 143 mmol/L (136-145) 08/22/18 07:43 Potassium 4.8 mmol/L (3.5-5.1) 08/22/18 07:43 Chloride 112 mmol/L (98-107) H 08/22/18 07:43 Carbon Dioxide 19 mmol/L (21-32) L 08/22/18 07:43 Anion Gap 12 MMOL/L (8-16) 08/22/18 07:43 BUN 64 mg/dL (7-18) H 08/22/18 07:43 Creatinine 2.1 mg/dL (0.55-1.3) H 08/22/18 07:43 Creat Clearance w eGFR 30.39 (>60) 08/22/18 07:43 POC Glucometer 142.84127 UNITS (80-120) 08/22/18 05:35 Random Glucose 132 mg/dL (74-106) H 08/22/18 07:43 Lactic Acid 1.2 mmol/L (0.4-2.0) 08/22/18 07:43 Calcium 7.9 mg/dL (8.5-10.1) L 08/22/18 07:43 Phosphorus 4.3 mg/dL (2.5-4.9) 08/22/18 07:43 Magnesium 2.4 mg/dL (1.8-2.4) 08/22/18 07:43 Total Bilirubin 0.9 mg/dL (0.2-1) 08/22/18 07:43 AST 31 U/L (15-37) 08/22/18 07:43 ALT 23 U/L (13-61) 08/22/18 07:43 Alkaline Phosphatase 75 U/L (45-117) 08/22/18 07:43 Creatine Kinase 195 U/L (26-308) 08/22/18 07:43 Creatine Kinase Index 3.1 % (0.0-5.0) 08/22/18 07:43 CK-MB (CK-2) 6.23 ng/mL (0.5-3.6) H 08/22/18 07:43 Troponin I 0.73 ng/ml (0.00-0.05) H* 08/22/18 07:43 Total Protein 5.8 g/dl (6.4-8.2) L 08/22/18 07:43 Albumin 3.1 g/dl (3.4-5.0) L 08/22/18 07:43 Total Amylase 31 U/L (25-115) 08/22/18 07:43 Lipase 40 U/L (73-393) L 08/22/18 07:43 Urine Color Yellow 08/21/18 09:00 Urine Appearance Clear 08/21/18 09:00 Urine pH 5.0 (5.0-8.0) 08/21/18 09:00 Ur Specific [place] 1.014 (1.010-1.035) 08/21/18 09:00 Urine Protein 2+ (NEGATIVE) H 08/21/18 09:00 Urine Glucose (UA) 1+ (NEGATIVE) H 08/21/18 09:00 Urine Ketones Trace (NEGATIVE) H 08/21/18 09:00 Urine Blood 1+ (NEGATIVE) H 08/21/18 09:00 Urine Nitrite Negative (NEGATIVE) 08/21/18 09:00 Urine Bilirubin Negative (<2.0 mg/dL) 08/21/18 09:00 Urine Urobilinogen Negative mg/dL (0.2-1.0) 08/21/18 09:00 Ur Leukocyte Esterase Negative (NEGATIVE) 08/21/18 09:00 Urine WBC (Auto) <1 /hpf (3-5) 08/21/18 09:00 Urine RBC (Auto) 8 /hpf (0-3) 08/21/18 09:00 Hyaline Casts 14 /lpf 08/21/18 09:00 Blood Type O POSITIVE 08/21/18 05:20 Antibody Screen Negative 08/21/18 05:20 Assessment/Plan EKG: afib, IVCD, PVCs MIBI 07/05 (pers): no STs; small area apical isch and basal inferolateral wall; mild global LV hypo, EF 46% tele: afib rate controlled Echo 10/07: 1. The left ventricular size is normal. 2. Overall left ventricular systolic function is normal with, an EF between 60 - 65 %. 3. LA pressure is uncertain. 4. No regional wall motion abnormalities were noted (basal inferolateral wall may be mildly hypokinetic). 5. The right ventricle is normal in size and function. 6. Left atrium is severely dilated by volume. 7. There is mild aortic regurgitation. 8. The mitral valve is normal in appearance, with no prolapse, flail leaflet, or tethered motion noted. 9. 2 separate MR jets are present: one directed anteriorly, the other central. The anterior jet hugs the antreior LA wall/interatrial septum and is not seen to wrap around the posterior LA wall. The visual appearance is of moderate mitral regurgitation, however the eccentric nature of the anterior jet may lead to underestimation of MR severity on color jet flow analysis. The peak mitral inflow velocity (0.7 m/sec) makes severe mitral regurgitation less likely. There is no systolic flow reversal present in the pulmonary vein. PISA hemisphere could not be measured. Estimated regurgitant volume by volumetric measurements yields and estimate of 35 cc. 10. Mild tricuspid regurgitation present. 11. Unable to estimate RVSP due to inadequate TR jet spectral doppler profile. a/p: 81 yo with h/o CAD s/p CABG, afib on coumadin CVA, hypertension, hyperlipidemia, IDDM, liver cancer(Chemo, 40% liver removed in 2008), who p/w abd pain Abd pain - ?mesenteric ischemia - manage per GI, surgery pAFib - Rate controlled on coreg - on heparin gtt CAD, S/P CABG '05: GAN TO LAD, SVG SEQUENTIAL TO DIAG-->OM; SVG TO RPDA. - on arb, statin at home - holding currently pending GI workup elevated trop: -pt has no cp/sob, ecg unremarkable for ischemia, but second trop mildly elevated. Possibly demand ischemia vs nstemi. He is already on hep gtt, cont same. Trend trops. Check echo. Given acute abd issues have been holding antiplts in case procedure/surgery needed. If no planned interventions can start asa as well. Chronic diastolic HF - currently euvolemic - holding diuretics Mod MR - outpatient follow up, stable HTN - stable LORRAINE - cont bipap LUIS on CKD (bl 1.4-1.9) - nephrology consulted
--- NOTE | 2018-08-22 12:09 | PN ---
Progress Note (short form) - Note Progress Note: Renal follow up for LUIS/CKD Pt seen and examined in the ICU awake and alert reports feeling tired but has no Abd pain today no sob, cp, fever, chills making urine Vital Signs Temperature 98.4 F 08/22/18 10:00 Pulse Rate 83 08/22/18 11:00 Respiratory Rate 20 08/22/18 11:00 Blood Pressure 134/53 L 08/22/18 11:00 O2 Sat by Pulse Oximetry (%) 100 08/22/18 08:56 Intake & Output 08/19/18 08/20/18 08/21/18 08/22/18 23:59 23:59 23:59 23:59 Intake Total 2540 1410 Output Total 730 200 Balance 1810 1210 Weight 74.8 kg 76.521 kg NAD neck supple, no JVD RRR, No M/R CTA, no rales mild distension, no tenderness No LE edema, clubbing or cyanosis No bladder distension CBC, BMP 08/22/18 07:43 08/22/18 07:43 Current Medications Carvedilol (Coreg -) 25 mg PO BID [facility] Last Admin: 08/22/18 10:25 Dose: 25 mg Chlorhexidine Gluconate (Hibiclens For Decolonization -) 1 applic TP HS [facility] Last Admin: 08/21/18 21:11 Dose: 1 applic Clonidine (Catapres -) 0.1 mg PO DAILY [facility] Last Admin: 08/22/18 10:34 Dose: 0.1 mg Heparin Sodium (Porcine) (Heparin -) 1,000 unit IVPUSH PRN PRN PRN Reason: Heparin Heparin Sodium (Porcine) (Heparin -) 5,000 unit IVPUSH PRN PRN PRN Reason: Heparin Last Admin: 08/21/18 11:00 Dose: 5,000 unit Heparin Sodium (Porcine) 25, (000 unit/ Sodium Chloride) 500 mls @ 20 mls/hr IV TITR [facility]; Protocol Last Admin: 08/22/18 10:30 Dose: 400 unit/hr, 8 mls/hr Piperacillin Sod/Tazobactam (Sod 2.25 gm/ Dextrose) 50 mls @ 100 mls/hr IVPB Q6H-IV [facility]; Protocol Last Admin: 08/22/18 08:48 Dose: 100 mls/hr Sodium Chloride (Normal Saline -) 1,000 mls @ 100 mls/hr IV ASDIR [facility] Last Admin: 08/21/18 17:01 Dose: 100 mls/hr Insulin Aspart (Novolog Vial Sliding Scale -) 1 vial SQ ACHS [facility]; Protocol Last Admin: 08/22/18 11:43 Dose: Not Given Morphine Sulfate (Morphine Sulfate) 2 mg IVPUSH Q4H PRN PRN Reason: PAIN LEVEL 7 - 10 Mupirocin (Bactroban Ointment (For Decolonization) -) 1 applic NS BID [facility] Stop: 08/26/18 21:59 Last Admin: 08/22/18 10:25 Dose: 1 applic Tamsulosin HCl (Flomax -) 0.4 mg PO DAILY@0830 [facility] Last Admin: 08/22/18 08:48 Dose: 0.4 mg 82 year old gentleman with hx of Afib on Coumadin, hypertension, hyperlipidemia , IDDM, Liver cancer s/p partial resection, CAD s/p CABG, CKD (baseline Cr 1.7-2 ) who presented with Abd pain worsening over the last few days. #LUIS on CKD #Contrast nephropathy risk stratification #Contrast nephropathy prophylaxis #Abd pain r/o acute abd vs. bowel ischemia #HTN #DM #CAD with preserved ejection fraction #Lactic acidosis (now resolved) Baseline Cr is 1.7-2 Renal function now improved to near baseline no contrast exposure yesterday continue moderate IVF, can decrease rate if there is concern over fluid overload /chest congestion Trend renal function and electrolytes surgery follow up pain control Thank you Ramy Contreras DO
--- NOTE | 2018-08-22 13:01 | PN ---
Teaching Attending Note Name of Resident: Kathryn Wiggins ATTENDING PHYSICIAN STATEMENT I saw and evaluated the patient. I reviewed the resident's note and discussed the case with the resident. I agree with the resident's findings and plan as documented. SUBJECTIVE: Patient seen and examined in the ICU. Awake and alert. Reports abdominal pain has almost dissipated but does have some mild splinting due to left sided discomfort. Denies CP or SOB. No BM. On IV Heparin per protocol for ischemic bowel. Intake & Output 08/19/18 08/20/18 08/21/18 08/22/18 23:59 23:59 23:59 23:59 Intake Total 2540 1410 Output Total 730 200 Balance 1810 1210 Weight 164 lb 14.492 oz 168 lb 11.2 oz Last Vital Signs Temp Pulse Resp BP Pulse Ox 98.4 F 83 20 134/53 L 100 08/22/18 10:00 08/22/18 11:00 08/22/18 11:00 08/22/18 11:00 08/22/18 08:56 Active Medications Carvedilol (Coreg -) 25 mg PO BID RAMU Last Admin: 08/22/18 10:25 Dose: 25 mg Chlorhexidine Gluconate (Hibiclens For Decolonization -) 1 applic TP HS RAMU Last Admin: 08/21/18 21:11 Dose: 1 applic Clonidine (Catapres -) 0.1 mg PO DAILY RAMU Last Admin: 08/22/18 10:34 Dose: 0.1 mg Heparin Sodium (Porcine) (Heparin -) 1,000 unit IVPUSH PRN PRN PRN Reason: Heparin Heparin Sodium (Porcine) (Heparin -) 5,000 unit IVPUSH PRN PRN PRN Reason: Heparin Last Admin: 08/21/18 11:00 Dose: 5,000 unit Heparin Sodium (Porcine) 25, (000 unit/ Sodium Chloride) 500 mls @ 20 mls/hr IV TITR RAMU; Protocol Last Admin: 08/22/18 10:30 Dose: 400 unit/hr, 8 mls/hr Piperacillin Sod/Tazobactam (Sod 2.25 gm/ Dextrose) 50 mls @ 100 mls/hr IVPB Q6H-IV RAMU; Protocol Last Admin: 08/22/18 08:48 Dose: 100 mls/hr Sodium Chloride (Normal Saline -) 1,000 mls @ 100 mls/hr IV ASDIR [facility] Last Admin: 08/21/18 17:01 Dose: 100 mls/hr Insulin Aspart (Novolog Vial Sliding Scale -) 1 vial SQ ACHS [facility]; Protocol Last Admin: 08/22/18 11:43 Dose: Not Given Morphine Sulfate (Morphine Sulfate) 2 mg IVPUSH Q4H PRN PRN Reason: PAIN LEVEL 7 - 10 Mupirocin (Bactroban Ointment (For Decolonization) -) 1 applic NS BID [facility] Stop: 08/26/18 21:59 Last Admin: 08/22/18 10:25 Dose: 1 applic Tamsulosin HCl (Flomax -) 0.4 mg PO DAILY@0830 [facility] Last Admin: 08/22/18 08:48 Dose: 0.4 mg General: Awake, alert, and fully oriented, in no acute distress Head: No signs of trauma Eyes: EOMI, sclera anicteric ENT: Dry mucus membranes Neck: Supple Lungs: Fews scattered rhonchi Cardio: Irregular rhythm, S1 and S2 present Abdomen: Mild tenderness to deep palpation LUQ. No guarding, no rebound, no masses. Surgical scar present Extremities: Normal range of motion, multiple ecchymoses present SKIN: Warm, Dry, normal turgor Neurologic: Non-focal Labs: Laboratory Results - last 24 hr 08/21/18 08/21/18 08/21/18 13:00 13:00 14:18 WBC 7.7 RBC 3.59 L Hgb 11.9 Hct 34.8 L MCV 97.0 H MCH 33.1 MCHC 34.2 RDW 13.7 Plt Count 89 L MPV 10.7 Absolute Neuts (auto) 6.2 Neutrophils % 80.6 Lymphocytes % 12.4 Monocytes % 6.8 D Eosinophils % 0.1 D Basophils % 0.1 Nucleated RBC % 0 PTT (Actin FS) Sodium Cancelled 138 Potassium Cancelled 5.5 H Chloride Cancelled 107 Carbon Dioxide Cancelled 23 Anion Gap Cancelled 9 BUN Cancelled 65 H Creatinine Cancelled 2.2 H Creat Clearance w eGFR Cancelled 28.80 POC Glucometer Random Glucose Cancelled 304 H* Lactic Acid Calcium Cancelled 8.1 L Phosphorus Magnesium Cancelled Total Bilirubin Cancelled 1.0 AST Cancelled 24 ALT Cancelled 21 Alkaline Phosphatase Cancelled 78 Creatine Kinase Creatine Kinase Index CK-MB (CK-2) Troponin I Total Protein Cancelled 6.0 L Albumin Cancelled 3.1 L Total Amylase Lipase 08/21/18 08/21/18 08/21/18 17:27 18:30 18:30 WBC 6.8 RBC 3.48 L Hgb 11.6 L Hct 33.8 L MCV 97.1 H MCH 33.4 MCHC 34.4 RDW 13.9 Plt Count 98 L MPV 9.9 Absolute Neuts (auto) 5.0 Neutrophils % 74.2 Lymphocytes % 14.9 D Monocytes % 10.7 H Eosinophils % 0.0 D Basophils % 0.2 Nucleated RBC % 0 PTT (Actin FS) Sodium Potassium Chloride Carbon Dioxide Anion Gap BUN Creatinine Creat Clearance w eGFR POC Glucometer [phone] Random Glucose Lactic Acid 2.1 H Calcium Phosphorus Magnesium Total Bilirubin AST ALT Alkaline Phosphatase Creatine Kinase Creatine Kinase Index CK-MB (CK-2) Troponin I Total Protein Albumin Total Amylase Lipase 08/21/18 08/21/18 08/22/18 18:30 21:27 02:07 WBC RBC Hgb Hct MCV MCH MCHC RDW Plt Count MPV Absolute Neuts (auto) Neutrophils % Lymphocytes % Monocytes % Eosinophils % Basophils % Nucleated RBC % PTT (Actin FS) > 400.0 H 154.5 H Sodium Potassium Chloride Carbon Dioxide Anion Gap BUN Creatinine Creat Clearance w eGFR POC Glucometer [phone] Random Glucose Lactic Acid Calcium Phosphorus Magnesium Total Bilirubin AST ALT Alkaline Phosphatase Creatine Kinase Creatine Kinase Index CK-MB (CK-2) Troponin I Total Protein Albumin Total Amylase Lipase 08/22/18 08/22/18 08/22/18 05:35 07:43 07:43 WBC RBC Hgb Hct MCV MCH MCHC RDW Plt Count MPV Absolute Neuts (auto) Neutrophils % Lymphocytes % Monocytes % Eosinophils % Basophils % Nucleated RBC % PTT (Actin FS) Sodium 143 Potassium 4.8 Chloride 112 H Carbon Dioxide 19 L Anion Gap 12 BUN 64 H Creatinine 2.1 H Creat Clearance w eGFR 30.39 POC Glucometer [phone] Random Glucose 132 H Lactic Acid Calcium 7.9 L Phosphorus 4.3 Magnesium 2.4 Total Bilirubin 0.9 AST 31 ALT 23 Alkaline Phosphatase 75 Creatine Kinase 195 Creatine Kinase Index 3.1 CK-MB (CK-2) 6.23 H Troponin I 0.73 H* Total Protein 5.8 L Albumin 3.1 L Total Amylase 31 Lipase 40 L 08/22/18 08/22/18 08/22/18 07:43 07:43 11:28 WBC 6.0 RBC 3.31 L Hgb 11.0 L Hct 32.1 L MCV 96.9 H MCH 33.3 MCHC 34.3 RDW 14.0 Plt Count 70 L D MPV 10.6 Absolute Neuts (auto) 4.5 Neutrophils % 75.3 Lymphocytes % 14.6 Monocytes % 9.0 Eosinophils % 0.6 D Basophils % 0.5 Nucleated RBC % 0 PTT (Actin FS) Sodium Potassium Chloride Carbon Dioxide Anion Gap BUN Creatinine Creat Clearance w eGFR POC Glucometer [phone] Random Glucose Lactic Acid 1.2 Calcium Phosphorus Magnesium Total Bilirubin AST ALT Alkaline Phosphatase Creatine Kinase Creatine Kinase Index CK-MB (CK-2) Troponin I Total Protein Albumin Total Amylase Lipase 08/22/18 08/22/18 11:40 11:40 WBC RBC Hgb Hct MCV MCH MCHC RDW Plt Count MPV Absolute Neuts (auto) Neutrophils % Lymphocytes % Monocytes % Eosinophils % Basophils % Nucleated RBC % PTT (Actin FS) 50.7 H Sodium Potassium Chloride Carbon Dioxide Anion Gap BUN Creatinine Creat Clearance w eGFR POC Glucometer Random Glucose Lactic Acid Calcium Phosphorus Magnesium Total Bilirubin AST ALT Alkaline Phosphatase Creatine Kinase 191 Creatine Kinase Index CK-MB (CK-2) Troponin I 0.49 H Total Protein Albumin Total Amylase Lipase Assessment/Plan Questionable Ischemic colitis versus Mesenteric Ischemia AFib on Coumadin with subtherapeutic INR HTN HLD DM Liver cancer s/p chemotherapy and partial hepatectomy in 2008 CVA CAD S/P CABG in 2003 Basal cell carcinoma History of [facility] not using PAP therapy LUIS IV Heparin per protocol with close follow up of PTT Rate control GI evaluation Continue home meds Will need formal OSAS re-evaluation after D/C Serial abdominal exam IVF Strict I & O Gylcemic control ABX per ID Continued ICU monitoring due to tenuous overall condition Dr Johnson Critical care time spent in reviewing chart, evaluating patient and formulating plan - 36 minutes.
--- NOTE | 2018-08-22 13:35 | ECHO ---
Name: KRISTIAN CONNER, JR Exam:Adult Echocardiogram Study Date: 08/22/2018 12:10 PM Age: 82 yrs Reason For Study: ELEVATED TROPONIN Height: 65 in Weight: 168 lb BSA: 1.8 m2 MMode/2D Measurements & Calculations IVSd: 1.5 cm Ao root diam: 2.6 cm LVIDd: 3.9 cm LA dimension: 4.5 cm LVIDs: 2.9 cm LVPWd: 1.0 cm EDV(Teich): 67.7 ml LAV (MOD-bp): 79.5 ml ESV(Teich): 33.2 ml Doppler Measurements & Calculations MV E max td: 134.0 cm/sec AI P1/2t: 358.0 msec MV dec time: 0.17 sec AI max td: 248.5 cm/sec MR max td: 392.0 cm/sec AI max P.9 mmHg MR max P.1 mmHg AI dec slope: 203.0 cm/sec2 TR max td: 247.3 cm/sec Med Peak E' Td: 5.2 cm/sec TR max P.5 mmHg Med E/e': 25.7 Lat Peak E' Td: 9.3 cm/sec Lat E/e': 14.5 PI Vmax: 117.5 cm/sec Procedure A complete two-dimensional transthoracic echocardiogram was performed (2D, M-mode, Doppler and color flow Doppler). Left Ventricle The left ventricular size, thickness and function are normal. The left ventricular ejection fraction is normal. Ejection Fraction = 55-60%. The left ventricular wall motion is normal. Right Ventricle The right ventricle is normal in size and function. Atria The left atrium is mildly dilated. Right atrial size is normal. Mitral Valve There is mild mitral regurgitation. Tricuspid Valve There is mild tricuspid regurgitation. Right ventricular systolic pressure is normal. Aortic Valve No hemodynamically significant valvular aortic stenosis. Mild aortic regurgitation. Pulmonic Valve There is no pulmonic valvular regurgitation. Great Vessels The aortic root is normal size. Pericardium/Pleura There is no pericardial effusion. Interpretation Summary The left ventricular size, thickness and function are normal The right ventricle is normal in size and function. The left atrium is mildly dilated. There is mild mitral regurgitation. There is mild tricuspid regurgitation. Mild aortic regurgitation. MD Ghanshyam Hill 08/22/2018 01:34 PM
--- NOTE | 2018-08-22 13:57 | PN ---
Progress Note (short form) - Note Progress Note: Pt states that he hasn't had any further abd pain since yesterday. No bm, nausea or emesis. The patient hasn't had a bowel movement since last Sunday. He had recent basal cell surgery and had an interruption in his coumadin dosing. Vital Signs Period Temp Pulse Resp BP Sys/Gregory Pulse Ox Last 24 Hr 97.9 F-99.1 F 58-100 12-24 100-159/48-110 99-100 GEN: A&0 x3, NAD ABD: soft, non-distended, non-tender CBC, BMP 08/22/18 07:43 08/22/18 07:43 Laboratory Tests 08/22/18 08/22/18 07:43 11:40 PTT (Actin FS) 50.7 H Lactic Acid 1.2 A/P: 82 yo male with a h/o of afib, admitted with abd pain r/o mesenteric ischemia Spoke with Dr. Reece regarding the patients care. The patient is no longer having abd pain. His repeat lactic acid levels are WNL INR upon admission 1.5, he remains on IV heparin. Surgically stable without evidence of ischemia. Recommend to begin clears and advance as tolerated. Dulcolax suppository given for his constipation.
--- NOTE | 2018-08-22 14:13 | EKG ---
Test Reason : Blood Pressure : / mmHG Vent. Rate : 103 BPM Atrial Rate : 125 BPM P-R Int : 000 ms QRS Dur : 132 ms QT Int : 380 ms P-R-T Axes : 000 -41 101 degrees QTc Int : 497 ms ATRIAL FIBRILLATION WITH RAPID VENTRICULAR RESPONSE LEFT AXIS DEVIATION NON-SPECIFIC INTRA-VENTRICULAR CONDUCTION BLOCK ABNORMAL QRS-T ANGLE, CONSIDER PRIMARY T WAVE ABNORMALITY ABNORMAL ECG WHEN COMPARED WITH ECG OF 21-AUG-2018 05:31, NO SIGNIFICANT CHANGE WAS FOUND Confirmed by JOYA HO MD ([id number]) on 08/22/2018 2:12:38 PM Referred By: Confirmed By:JOYA HO MD
[2018-08-22] MEDS ORDERED: BISACODYL 10 MG SUPP.RECT RC ONE (14:15)
--- NOTE | 2018-08-22 15:09 | PN ---
Progress Note (short form) - Note Progress Note: SUBJECTIVE Patient seen and examined at the bedside. No acute events overnight. No abdominal pain or chest pain. OBJECTIVE Vital Signs Temperature 98.0 F 08/22/18 13:00 Pulse Rate 76 08/22/18 13:00 Respiratory Rate 20 08/22/18 13:00 Blood Pressure 100/50 L 08/22/18 13:00 O2 Sat by Pulse Oximetry (%) 100 08/22/18 08:56 General: Awake, alert, and fully oriented, in no acute distress Head: No signs of trauma Eyes: EOMI, sclera anicteric ENT: Dry mucus membranes Neck: Supple Lungs: Expiratory rhonchi at the bases Cardio: Irregular rhythm, S1 and S2 present Abdomen: Nontender to palpation. Soft, nondistended. No guarding, no rebound, no masses. Surgical scar present Extremities: Normal range of motion, multiple ecchymoses present SKIN: Warm, Dry, normal turgor Neurologic: Cranial nerves II through XII grossly intact. Normal speech ASSESSMENT 82yo M with PMH of HTN, HLD, DM, Liver cancer s/p chemotherapy and partial hepatectomy in 2008, CVA, CAD s/p CABG in 2003, Basal cell carcinoma, Afib on Coumadin complaining of abdominal pain x 3 days. CTAP suspicious for ischemic colitis vs mesenteric ischemia. No abdominal pain since 08/21/17 afternoon. HOD # 2. PLAN CV Elevated Troponin -Tpn=0.49 (from 0.73) -ECHO today with mild LA dilation, normal LV/RV function, mild Mitral/ TricuspidAortic regurgitation Afib, rate currently stable -subtherapeutic INR=1.45 -EKG, rate 93, QTc 474, atrial fibrillation with a left anterior fascicular block -on heparin drip -check PTT q4h until stable -hold home coumadin Chronic HTN -monitor BP -continue home carvedilol 25mg, hydralazine 10mg, Nitroglycerin 0.4mg/hr, Clonidine 0.1mg/24hr Chronic diastolic HF -Small bilateral pleural effusions noted on CT -hold home olmesartan 20mg given LUIS and fluid hydration Chronic HLD -continue home simvastatin 20mg given patient PULM Chronic mild LORRAINE, per chart review -Patient does not use therapy at home GI Abdominal pain, suspicious for ischemic colitis vs mesenteric ischemia -CTAP without contrast given patient's LUIS shows calcification of the superior mesenteric artery -Previous abdominal exam documented as "pain out of proportion" -Heparin drip for anticoagulation -Serial abdominal exam q1h -Surgery consulted (Dr. Riddle, ) -Diet advanced per surgery -GI consulted RENAL LUIS -Renal following -BUN/Cr=64/2.1 (from 70/2.3 and baseline Cr is 1.7-2) -CT abdomen/pelvis without contrast in the ED -Per renal: continue aggressive IV hydration with isotonic saline. -Risk of contrast nephropathy is 26% and risk of dialysis is 1% based on DANAE calculator developed by Kaushik et al. Repeat BMP prior to contrast; Continue IVF hydration at 1ml/lg for up to 12 hours post contrast exposure -Avoid NSAIDs and SOPHIA/ARB or diuretics for now ENDO Chronic DM -BGM, NISS ID Lactic acidosis, likely secondary to mesenteric ischemia vs. unknown source of infection -Lactate=1.2 (from 2.6) -qSOFA=1 for RR -Patient afebrile, not tachycardic, not hypotensive, without leukocytosis -IV Zosyn, renally dosed -ID consulted -IV hydration FEN -NS @100cc/hr -Monitor electrolytes, replete as needed -NPO except for po medications -PRN Morphine 2mg q4hr ordered for -05/01 pain Prophylaxis -VTE: SCDs, on heparin gtt -GI ppx: no need for now #Disposition: Monitor in the ICU #Full Code
--- NOTE | 2018-08-22 15:49 | CON.GI ---
Consult Consult Specialty:: GI Referred by:: Hospitalist Service Reason for Consultation:: Abdominal pain - History of Present Illness Chief Complaint: Pain on left side down leg History of Present Illness: 82M admitted through [facility] ER for evaluation of pain. He described the pain as starting when he was in his car yesterday. It started in the left lower back and down his left buttock. There was an associated abdominal pressure as well and he tried to make himself vomit. he describes constipation and has not had a bowel movement in close to a week. He had an EGD /colonoscopy 11/[address] Calvillo. Colonoscopy revealed mild sigmoid diverticulosis, right colon tubular adenomas. EGD report not avialbale in [employer] but biopsies of " nodular mucosa" revealed focal intestinal metaplasioa. He had an EGD 09/28/[address] del Machado that revealed gastritis. Biopsies were negative for h. pylori and celiac serologies were unrevealing. A non contrast CT scan of the abdomen and pelvis was unrevealing. He denies pain currently. He is mildly tachypnic. he is receiving NS @ 100cc/hr. - History Source History Provided By: Patient, Family Member, Medical Record Limitations to Obtaining History: No Limitations - Past Medical History Cardio/Vascular: Yes: AFIB, CAD, CHF, HTN, Hyperlipdemia Gastrointestinal: Yes: Cancer (primary liver) Hepatobiliary: Yes: Other (primary liver cancer s/p resection and now recurr in lymph nodes on chemo (nexavar)) Renal/: Yes: Renal Inusuff Endocrine: Yes: Diabetes Mellitus (insulin dependent) - Past Surgical History Past Surgical History: Yes: CABG (partial liver resection) Additional Surgical History: Resection of HCC - Alcohol/Substance Use Hx Alcohol Use: No - Smoking History Smoking history: Never smoked Have you smoked in the past 12 months: No - Social History Usual Living Arrangement: With Spouse ADL: Independent Place of : Other ([place]) History of Recent Travel: No Home Medications - Allergies Allergies/Adverse Reactions: Allergies Allergy/AdvReac Type Severity Reaction Status Date / Time No Known Drug Allergies Allergy Verified 11/03/16 12:54 - Home Medications Home Medications: Ambulatory Orders Carvedilol [Coreg -] 25 mg PO BID 11/03/16 Lantus (10mL VIAL) - 8 units SQ HS 11/03/16 Nitroglycerin Patch [Nitro-Dur Patch -] 0.4 mg TD DAILY 11/03/16 Simvastatin [Zocor -] 20 mg PO HS 11/03/16 Clonidine HCl 0.1 mg PO DAILY 08/21/18 Insulin Aspart [Novolog] 0 unit SQ TID 08/21/18 Olmesartan Medoxomil [Benicar] 10 mg PO HS 08/21/18 Tamsulosin HCl 0.4 mg PO DAILY 08/21/18 Torsemide 20 mg PO DAILY 08/21/18 Warfarin Na [Coumadin] 2 mg PO DAILY 08/21/18 hydrALAZINE HCL [Apresoline -] 10 mg PO BID 08/21/18 Family Disease History - Family Disease History Other Family History: No family history of colorectal cancer or other GI malignancy Review of Systems - Review of Systems Constitutional: denies: Fever Cardiovascular: denies: Chest Pain Respiratory: reports: SOB Gastrointestinal: reports: Bloating (resolved), Constipation. denies: Diarrhea , Indigestion, Melena, Rectal Bleeding, Vomiting, Vomiting Blood Physical Exam-GI Vital Signs: Vital Signs Temperature 98.0 F 08/22/18 13:00 Pulse Rate 81 08/22/18 14:00 Respiratory Rate 20 08/22/18 14:00 Blood Pressure 121/80 08/22/18 14:00 O2 Sat by Pulse Oximetry (%) 100 08/22/18 08:56 Constitutional: Yes: Calm Eyes: No: Sclera Icterus Cardiovascular: Yes: Pulse Irregular Respiratory: Yes: Rhonchi (bases bilaterally) Gastrointestinal Inspection: Yes: Scars (Upper abdominal gilberto-naz scar). No: Distention ...Auscultate: Yes: Normoactive Bowel Sounds ...Percussion: No: Tympanitic Edema: No (No LE edema) Neurological: Yes: Alert Labs: CBC, BMP 08/22/18 07:43 08/22/18 07:43 INR, PTT INR 1.45 (0.83-1.09) H 08/21/18 05:20 Problem List - Problems (1) Abdominal pain Assessment/Plan: No current abdominal pain. The pain started in the lower back and radiated to the left buttock. ? musculoskeletal neurogenic in origin. ? secondary to constipation (however the pain was precipitated by movement). Does not sound like mesenteric ischemia Consider imaging of L-S spine, neuro eval Advance diet GI prophylaxis while on A/C Patient with rales bilateral bases. fluid management per primary team / renal MiraLAX 17g once daily Recall as needed Code(s): R10.9 - UNSPECIFIED ABDOMINAL PAIN Qualifiers: Abdominal location: left lower quadrant Qualified Code(s): R10.32 - Left lower quadrant pain
[2018-08-22] MEDS: POLYETHYLENE GLYCOL 3350 119 GM BTL PO SCH (16:30)
--- NOTE | 2018-08-22 16:38 | PN ---
Progress Note (short form) - Note Progress Note: no more abdominal pain since yesterday remains constipated Vital Signs Period Temp Pulse Resp BP Sys/Gregory Pulse Ox Last 24 Hr 97.9 F-99.1 F 58-100 12-24 100-159/48-110 100-100 cor-rrr lungs decreased bs at bases abd firm, nt ext no edema CBC, BMP 08/22/18 07:43 08/22/18 07:43 Laboratory Tests 08/21/18 08/21/18 08/21/18 05:20 10:17 18:30 Lactic Acid 1.9 2.6 H* 2.1 H 08/22/18 07:43 Lactic Acid 1.2 Current Medications Carvedilol (Coreg -) 25 mg PO BID RAMU Last Admin: 08/22/18 10:25 Dose: 25 mg Chlorhexidine Gluconate (Hibiclens For Decolonization -) 1 applic TP HS RAMU Last Admin: 08/21/18 21:11 Dose: 1 applic Clonidine (Catapres -) 0.1 mg PO DAILY RAMU Last Admin: 08/22/18 10:34 Dose: 0.1 mg Heparin Sodium (Porcine) (Heparin -) 1,000 unit IVPUSH PRN PRN PRN Reason: Heparin Heparin Sodium (Porcine) (Heparin -) 5,000 unit IVPUSH PRN PRN PRN Reason: Heparin Last Admin: 08/21/18 11:00 Dose: 5,000 unit Heparin Sodium (Porcine) 25, (000 unit/ Sodium Chloride) 500 mls @ 20 mls/hr IV TITR RAMU; Protocol Last Titration: 08/22/18 13:03 Dose: 400 unit/hr, 8 mls/hr Piperacillin Sod/Tazobactam (Sod 2.25 gm/ Dextrose) 50 mls @ 100 mls/hr IVPB Q6H-IV RAMU; Protocol Last Admin: 08/22/18 14:47 Dose: 100 mls/hr Sodium Chloride (Normal Saline -) 1,000 mls @ 100 mls/hr IV ASDIR [facility]U Last Admin: 08/21/18 17:01 Dose: 100 mls/hr Insulin Aspart (Novolog Vial Sliding Scale -) 1 vial SQ ACHS [facility]U; Protocol Last Admin: 08/22/18 16:29 Dose: 2 units Morphine Sulfate (Morphine Sulfate) 2 mg IVPUSH Q4H PRN PRN Reason: PAIN LEVEL 7 - 10 Mupirocin (Bactroban Ointment (For Decolonization) -) 1 applic NS BID [facility] Stop: 08/26/18 21:59 Last Admin: 08/22/18 10:25 Dose: 1 applic Polyethylene Glycol (Miralax (For Daily Use) -) 17 gm PO DAILY [facility] Last Admin: 08/22/18 16:30 Dose: 17 grams Tamsulosin HCl (Flomax -) 0.4 mg PO DAILY@0830 [facility] Last Admin: 08/22/18 08:48 Dose: 0.4 mg imp/reccd abdominal pain resolved lactic acidosis resolved +constipation elevated troponin-cardiology f/u afib- on heparin f/u cultures continue zosyn for now-probable d/c antibiotics in am Problem List - Problems (1) Abdominal pain Code(s): R10.9 - UNSPECIFIED ABDOMINAL PAIN Qualifiers: Abdominal location: generalized Qualified Code(s): R10.84 - Generalized abdominal pain (2) Lactic acid acidosis Code(s): E87.2 - ACIDOSIS
--- NOTE | 2018-08-22 18:26 | CONSULT ---
Consult Consult Specialty:: endocrine Referred by:: dr.[email or web address] oh Reason for Consultation:: diabetes mellitus - History of Present Illness Chief Complaint: high sugars History of Present Illness: 82M with history of dm 2hypertension, hyperlipidemia, liver cancer(Chemo, 40% liver removed in 2008), CVA, CAD, Quadruple Bypass, and afib (on coumadin) here today complaining of abdominal pain . Patient describes the pain as diffuse. Patient states that he feels nauseous, and that he has been constipated for the past four days. Denies dysuria. has lost appetite and sugars remain high.denies hypoglycemia,fever chills or vomiting. - Past Medical History Cardio/Vascular: Yes: AFIB, CAD, CHF, HTN, Hyperlipdemia Gastrointestinal: Yes: Cancer (primary liver) Hepatobiliary: Yes: Other (primary liver cancer s/p resection and now recurr in lymph nodes on chemo (nexavar)) Renal/: Yes: Renal Inusuff Endocrine: Yes: Diabetes Mellitus (insulin dependent) - Past Surgical History Past Surgical History: Yes: CABG (partial liver resection) Additional Surgical History: Resection of HCC - Alcohol/Substance Use Hx Alcohol Use: No - Smoking History Smoking history: Never smoked Have you smoked in the past 12 months: No - Social History Usual Living Arrangement: With Spouse ADL: Independent History of Recent Travel: No Home Medications - Allergies Allergies/Adverse Reactions: Allergies Allergy/AdvReac Type Severity Reaction Status Date / Time No Known Drug Allergies Allergy Verified 11/03/16 12:54 - Home Medications Home Medications: Ambulatory Orders Carvedilol [Coreg -] 25 mg PO BID 11/03/16 Lantus (10mL VIAL) - 8 units SQ HS 11/03/16 Nitroglycerin Patch [Nitro-Dur Patch -] 0.4 mg TD DAILY 11/03/16 Simvastatin [Zocor -] 20 mg PO HS 11/03/16 Clonidine HCl 0.1 mg PO DAILY 08/21/18 Insulin Aspart [Novolog] 0 unit SQ TID 08/21/18 Olmesartan Medoxomil [Benicar] 10 mg PO HS 08/21/18 Tamsulosin HCl 0.4 mg PO DAILY 08/21/18 Torsemide 20 mg PO DAILY 08/21/18 Warfarin Na [Coumadin] 2 mg PO DAILY 08/21/18 hydrALAZINE HCL [Apresoline -] 10 mg PO BID 08/21/18 Family Disease History - Family Disease History Other Family History: No family history of colorectal cancer or other GI malignancy Review of Systems - Review of Systems Constitutional: reports: Lethargy, Weakness Eyes: reports: No Symptoms HENT: reports: No Symptoms Neck: reports: Pain on Movement Cardiovascular: reports: Shortness of Breath Respiratory: reports: Exercise Intolerance, SOB on Exertion Gastrointestinal: reports: Abdominal Pain, Bloating, Constipation, Nausea Genitourinary: reports: No Symptoms Breasts: reports: No Symptoms Reported Musculoskeletal: reports: Muscle Cramps, Muscle Weakness Neurological: reports: Numbness, Weakness Endocrine: reports: No Symptoms Physical Exam Vital Signs: Vital Signs Temperature 98.2 F 08/22/18 17:00 Pulse Rate 83 08/22/18 17:00 Respiratory Rate 20 08/22/18 17:00 Blood Pressure 110/62 08/22/18 17:00 O2 Sat by Pulse Oximetry (%) 100 08/22/18 08:56 Constitutional: Yes: Calm Eyes: Yes: EOM Intact HENT: Yes: Normocephalic Neck: Yes: Trachea Midline Cardiovascular: Yes: Pulse Irregular Respiratory: Yes: CTA Bilaterally Gastrointestinal: Yes: Normal Bowel Sounds ...Rectal Exam: Yes: Deferred Renal/: Yes: WNL Musculoskeletal: Yes: Back Pain, Muscle Weakness Extremities: Yes: WNL Neurological: Yes: Alert, Oriented Labs: CBC, BMP 08/22/18 07:43 08/22/18 07:43 Problem List - Problems (1) Abdominal pain Code(s): R10.9 - UNSPECIFIED ABDOMINAL PAIN Qualifiers: Abdominal location: generalized Qualified Code(s): R10.84 - Generalized abdominal pain (2) Acute mesenteric ischemia Code(s): K55.059 - ACUTE ISCHEMIA OF INTESTINE, PART AND EXTENT UNSPECIFIED (3) Gastric cancer Code(s): C16.9 - MALIGNANT NEOPLASM OF STOMACH, UNSPECIFIED (4) Lactic acid acidosis Code(s): E87.2 - ACIDOSIS (5) Afib Code(s): I48.91 - UNSPECIFIED ATRIAL FIBRILLATION (6) Asymptomatic myocardial ischemia Code(s): I25.6 - SILENT MYOCARDIAL ISCHEMIA Assessment/Plan Current Active Problems Abdominal pain (Acute) Acute mesenteric ischemia (Acute) Gastric cancer (Acute) Lactic acid acidosis (Acute) dm 2 gastroparesis dehydration Abnormal Lab Results 08/21/18 08/21/18 08/21/18 18:30 18:30 18:30 RBC 3.48 L Hgb 11.6 L Hct 33.8 L MCV 97.1 H Plt Count 98 L Monocytes % 10.7 H PTT (Actin FS) > 400.0 H Chloride Carbon Dioxide BUN Creatinine Random Glucose Lactic Acid 2.1 H Calcium CK-MB (CK-2) Troponin I Total Protein Albumin Lipase 08/22/18 08/22/18 08/22/18 02:07 07:43 07:43 RBC Hgb Hct MCV Plt Count Monocytes % PTT (Actin FS) 154.5 H Chloride 112 H Carbon Dioxide 19 L BUN 64 H Creatinine 2.1 H Random Glucose 132 H Lactic Acid Calcium 7.9 L CK-MB (CK-2) 6.23 H Troponin I 0.73 H* Total Protein 5.8 L Albumin 3.1 L Lipase 40 L 08/22/18 08/22/18 08/22/18 07:43 11:40 11:40 RBC 3.31 L Hgb 11.0 L Hct 32.1 L MCV 96.9 H Plt Count 70 L D Monocytes % PTT (Actin FS) 50.7 H Chloride Carbon Dioxide BUN Creatinine Random Glucose Lactic Acid Calcium CK-MB (CK-2) 5.7 H Troponin I 0.49 H Total Protein Albumin Lipase 08/22/18 15:50 RBC Hgb Hct MCV Plt Count Monocytes % PTT (Actin FS) 51.2 H Chloride Carbon Dioxide BUN Creatinine Random Glucose Lactic Acid Calcium CK-MB (CK-2) Troponin I Total Protein Albumin Lipase plan: check bgm qid novolog insulin levemir hs dose titration ch hba1c
[2018-08-22] MEDS: SODIUM CHLORIDE 1,000 ML IV SCH (20:49)
[2018-08-22] MEDS: CHLORHEXIDINE GLUCONATE 4% CLEANSER FOR DECOLONIZATION TP SCH (21:58)
[2018-08-23] MEDS ORDERED: DEXTROSE 5%-WATER - 50 ML IVPB ONE ×2 (00:44→08:10)
[2018-08-23] MEDS ORDERED: PIPERACILLIN/TAZOBACTAM 2.25 GM VIAL IVPB ONE ×2 (00:44→08:10)
[2018-08-23] MEDS: PIPERACILLIN/TAZOB 2.25 GM 2.25 GM in DEXTROSE 5%-WATER - 50 ML IVPB SCH ×2 (02:51→08:13)
[2018-08-23] MEDS: INSULIN SLIDING SCALE (NOVOLOG) 1 VIAL SQ SCH ×4 (06:01→22:30)
[2018-08-23 06:03] LABS: BASO % 0.4 % (0-2.0); EOS % 0.9 % (0-4.5); HEMATOCRIT 28.5 % (35.4-49); HEMOGLOBIN 9.8 GM/dL (11.7-16.9); MCH 33.4 pg (25.7-33.7); MCHC 34.4 g/dl (32.0-35.9); MEAN CELL VOLUME 97.1 fl (80-96); MEAN PLT VOLUME 10.1 fl (7.5-11.1); MONO % 12.7 % (3.8-10.2); PLATELET COUNT 61 K/MM3 (134-434); RBC 2.94 M/mm3 (4.00-5.60); RDW 14.2 % (11.9-15.9)
[2018-08-23 06:26] LABS: ALBUMIN 2.8 g/dl (3.4-5.0); ALK PHOS 66 U/L (45-117); ANION GAP 6 MMOL/L (8-16); BILIRUBIN,TOTAL 0.8 mg/dL (0.2-1); BLOOD UREA NITROGEN 62 mg/dL (7-18); CALCIUM 7.7 mg/dL (8.5-10.1); CHLORIDE 112 mmol/L (98-107); CO2 23 mmol/L (21-32); CREATININE 2.3 mg/dL (0.55-1.3); GLUCOSE,RANDOM 161 mg/dL (74-106); MAGNESIUM 2.4 mg/dL (1.8-2.4); PHOSPHOROUS 4.1 mg/dL (2.5-4.9); POTASSIUM 4.6 mmol/L (3.5-5.1); SGOT/AST 27 U/L (15-37); SGPT/ALT 24 U/L (13-61); SODIUM 141 mmol/L (136-145); TOT PROT 5.2 g/dl (6.4-8.2)
--- NOTE | 2018-08-23 07:44 | PN ---
Progress Note (short form) - Note Progress Note: 82yo M h/o diffuse abd pain. Pt seen and examined at bedside. Pt states that he had a large BM last night and feels much better now. Pt states abd pain now completely resolved. Denies n/v, fever, chills. Last Vital Signs Temp Pulse Resp BP Pulse Ox 98.2 F 78 20 141/59 L 100 08/23/18 06:00 08/23/18 06:00 08/23/18 06:00 08/23/18 06:00 08/22/18 21:00 CBC, BMP 08/23/18 05:30 08/23/18 05:30 PE: Gen: A&O x3 Resp: breathing comfortably Abd: soft, nontender, mild distension Ext: no edema Problem List - Problems (1) Abdominal pain Assessment/Plan: Plan -pt appears to be much improved, no signs of mesenteric ischemia, pain most likely due to constipation. -pt cleared from surgical standpoint to go to floor. -no surgical intervention at this time. -OOB/ambulate Code(s): R10.9 - UNSPECIFIED ABDOMINAL PAIN Qualifiers: Abdominal location: generalized Qualified Code(s): R10.84 - Generalized abdominal pain
[2018-08-23] MEDS: TAMSULOSIN HCL 0.4 MG CAP PO SCH (08:13)
--- NOTE | 2018-08-23 08:29 | PN ---
Progress Note (short form) - Note Progress Note: no more abdominal pain since yesterday +BM feels well no cough Vital Signs Period Temp Pulse Resp BP Sys/Gregory Pulse Ox Last 24 Hr 97.7 F-98.5 F 62-100 13-20 96-151/43-110 100-100 cor-rrr llungs clear abd soft,nt ext trace edema CBC, BMP 08/23/18 05:30 08/23/18 05:30 Microbiology 08/21/18 20:00 Blood - Peripheral Venous Blood Culture - Preliminary NO GROWTH OBTAINED AFTER 24 HOURS, INCUBATION TO CONTINUE FOR 4 DAYS. 08/21/18 18:30 Blood - Peripheral Venous Blood Culture - Preliminary NO GROWTH OBTAINED AFTER 24 HOURS, INCUBATION TO CONTINUE FOR 4 DAYS. Current Medications Carvedilol (Coreg -) 25 mg PO BID [facility] Last Admin: 08/22/18 21:58 Dose: 25 mg Chlorhexidine Gluconate (Hibiclens For Decolonization -) 1 applic TP HS [facility] Last Admin: 08/22/18 21:58 Dose: 1 applic Clonidine (Catapres -) 0.1 mg PO DAILY [facility] Last Admin: 08/22/18 10:34 Dose: 0.1 mg Heparin Sodium (Porcine) (Heparin -) 1,000 unit IVPUSH PRN PRN PRN Reason: Heparin Last Admin: 08/23/18 06:54 Dose: 1,000 unit Heparin Sodium (Porcine) (Heparin -) 5,000 unit IVPUSH PRN PRN PRN Reason: Heparin Last Admin: 08/21/18 11:00 Dose: 5,000 unit Heparin Sodium (Porcine) 25, (000 unit/ Sodium Chloride) 500 mls @ 20 mls/hr IV TITR [facility]; Protocol Last Titration: 08/23/18 06:54 Dose: 500 unit/hr, 10 mls/hr Piperacillin Sod/Tazobactam (Sod 2.25 gm/ Dextrose) 50 mls @ 100 mls/hr IVPB Q6H-IV [facility]; Protocol Last Admin: 08/23/18 08:13 Dose: 100 mls/hr Sodium Chloride (Normal Saline -) 1,000 mls @ 100 mls/hr IV ASDIR [facility] Last Admin: 08/22/18 20:49 Dose: 100 mls/hr Insulin Aspart (Novolog Vial Sliding Scale -) 1 vial SQ ACHS [facility]; Protocol Last Admin: 08/23/18 06:01 Dose: Not Given Insulin Detemir (Levemir Vial) 8 units SQ HS [facility] Morphine Sulfate (Morphine Sulfate) 2 mg IVPUSH Q4H PRN PRN Reason: PAIN LEVEL 7 - 10 Mupirocin (Bactroban Ointment (For Decolonization) -) 1 applic NS BID [facility] Stop: 08/26/18 21:59 Last Admin: 08/22/18 21:58 Dose: 1 applic Polyethylene Glycol (Miralax (For Daily Use) -) 17 gm PO DAILY [facility] Last Admin: 08/22/18 16:30 Dose: 17 grams Tamsulosin HCl (Flomax -) 0.4 mg PO DAILY@0830 [facility] Last Admin: 08/23/18 08:13 Dose: 0.4 mg imp/reccd abdominal pain resolved lactic acidosis resolved constipation resolved elevated troponin-cardiology f/u afib- on heparin s/p partial hepatectomy for liver cancer will d/c antibiotics and observe-leukopenia/thrombocytopenia may partially be due to zosyn Problem List - Problems (1) Abdominal pain Code(s): R10.9 - UNSPECIFIED ABDOMINAL PAIN Qualifiers: Abdominal location: generalized Qualified Code(s): R10.84 - Generalized abdominal pain (2) Lactic acid acidosis Code(s): E87.2 - ACIDOSIS
[2018-08-23] MEDS: cloNIDine HCL 0.1 MG TABLET PO SCH (09:53)
[2018-08-23] MEDS: CARVEDILOL 25 MG TABLET (FP) PO SCH ×2 (09:53→22:31)
[2018-08-23] MEDS: POLYETHYLENE GLYCOL 3350 119 GM BTL PO SCH (09:54)
[2018-08-23] MEDS: MUPIROCIN 2% TOPICAL OINTMENT FOR DECOLONIZATION NS SCH ×2 (09:54→22:31)
[2018-08-23] MEDS: HEPARIN - 25,000 UNIT in SODIUM CHLORIDE 495 ML IV SCH (10:30)
--- NOTE | 2018-08-23 10:48 | PN ---
Progress Note, Physician Chief Complaint: Abdominal Pain Elevated Troponin History of Present Illness: Previous notes and events reviewed Awake and alert NAD patient sts feeling better, denies abdominal pain, chest pain SOB - Current Medication List Current Medications: Active Medications Carvedilol (Coreg -) 25 mg PO BID [facility] Last Admin: 08/23/18 09:53 Dose: 25 mg Chlorhexidine Gluconate (Hibiclens For Decolonization -) 1 applic TP HS [facility] Last Admin: 08/22/18 21:58 Dose: 1 applic Clonidine (Catapres -) 0.1 mg PO DAILY [facility] Last Admin: 08/23/18 09:53 Dose: 0.1 mg Heparin Sodium (Porcine) (Heparin -) 1,000 unit IVPUSH PRN PRN PRN Reason: Heparin Last Admin: 08/23/18 06:54 Dose: 1,000 unit Heparin Sodium (Porcine) (Heparin -) 5,000 unit IVPUSH PRN PRN PRN Reason: Heparin Last Admin: 08/21/18 11:00 Dose: 5,000 unit Heparin Sodium (Porcine) 25, (000 unit/ Sodium Chloride) 500 mls @ 20 mls/hr IV TITR [facility]; Protocol Last Titration: 08/23/18 06:54 Dose: 500 unit/hr, 10 mls/hr Insulin Aspart (Novolog Vial Sliding Scale -) 1 vial SQ [facility]; Protocol Last Admin: 08/23/18 06:01 Dose: Not Given Insulin Detemir (Levemir Vial) 8 units SQ [facility] Morphine Sulfate (Morphine Sulfate) 2 mg IVPUSH Q4H PRN PRN Reason: PAIN LEVEL 7 - 10 Mupirocin (Bactroban Ointment (For Decolonization) -) 1 applic NS BID [facility] Stop: 08/26/18 21:59 Last Admin: 08/23/18 09:54 Dose: 1 applic Polyethylene Glycol (Miralax (For Daily Use) -) 17 gm PO DAILY [facility] Last Admin: 08/23/18 09:54 Dose: 17 grams Tamsulosin HCl (Flomax -) 0.4 mg PO DAILY@0830 [facility] Last Admin: 08/23/18 08:13 Dose: 0.4 mg Warfarin Sodium (Coumadin -) 2 mg PO DAILY@1800 [facility] - Objective Vital Signs: Vital Signs Temperature 98.8 F 08/23/18 10:00 Pulse Rate 79 08/23/18 10:00 Respiratory Rate 16 08/23/18 10:00 Blood Pressure 129/75 08/23/18 10:00 O2 Sat by Pulse Oximetry (%) 100 08/23/18 10:00 Constitutional: Yes: No Distress, Calm Eyes: Yes: Conjunctiva Clear HENT: Yes: Normocephalic Neck: Yes: Supple Cardiovascular: Yes: Regular Rate and Rhythm Respiratory: Yes: Regular, CTA Bilaterally Gastrointestinal: Yes: Normal Bowel Sounds, Soft Musculoskeletal: Yes: Muscle Weakness Extremities: Yes: WNL Edema: No Neurological: Yes: Alert, Oriented Psychiatric: Yes: Alert, Oriented Labs: CBC, BMP 08/23/18 05:30 08/23/18 05:30 INR, PTT INR 1.45 (0.83-1.09) H 08/21/18 05:20 Problem List - Problems (1) Abdominal pain Assessment/Plan: -patient sts abd pain resolved -GI on board Code(s): R10.9 - UNSPECIFIED ABDOMINAL PAIN Qualifiers: Abdominal location: generalized Qualified Code(s): R10.84 - Generalized abdominal pain (2) Lactic acid acidosis Assessment/Plan: -improved -current LA 1.2 Code(s): E87.2 - ACIDOSIS (3) Afib Assessment/Plan: -cardiology on board -cont with Heparin drip -beginning to bridge back onto coumadin -coumadin 2mg daily -cont coreg for rate control Code(s): I48.91 - UNSPECIFIED ATRIAL FIBRILLATION (4) Acute mesenteric ischemia Code(s): K55.059 - ACUTE ISCHEMIA OF INTESTINE, PART AND EXTENT UNSPECIFIED (5) Asymptomatic myocardial ischemia Assessment/Plan: -cardiology on board -cont Heparin drip -08/22/18 troponin 0.46, beginning to trend down will cont to monitor Code(s): I25.6 - SILENT MYOCARDIAL ISCHEMIA (6) Diabetes mellitus, insulin dependent (IDDM), uncontrolled Assessment/Plan: -BGM ACHS, ISS -diabetic diet -levemir 8U qhs Code(s): E10.65 - TYPE 1 DIABETES MELLITUS WITH HYPERGLYCEMIA
--- NOTE | 2018-08-23 11:06 | PN ---
Teaching Attending Note Name of Resident: Kathryn Wiggins ATTENDING PHYSICIAN STATEMENT I saw and evaluated the patient. I reviewed the resident's note and discussed the case with the resident. I agree with the resident's findings and plan as documented. SUBJECTIVE: Patient seen and examined in the ICU. Awake and alert. Reports abdominal pain continues to improve. Breathing feels OK. No CP or SOB. CXR: Bilateral congestive changes Intake & Output 08/20/18 08/21/18 08/22/18 08/23/18 23:59 23:59 23:59 23:59 Intake Total 2540 3366 1466 Output Total 730 650 200 Balance 1810 2716 1266 Weight 164 lb 14.492 oz 168 lb 11.2 oz 171 lb 12.8 oz Last Vital Signs Temp Pulse Resp BP Pulse Ox 98.8 F 79 16 129/75 100 08/23/18 10:00 08/23/18 10:00 08/23/18 10:00 08/23/18 10:00 08/23/18 10:00 Active Medications Carvedilol (Coreg -) 25 mg PO BID [facility] Last Admin: 08/23/18 09:53 Dose: 25 mg Chlorhexidine Gluconate (Hibiclens For Decolonization -) 1 applic TP HS [facility] Last Admin: 08/22/18 21:58 Dose: 1 applic Clonidine (Catapres -) 0.1 mg PO DAILY [facility] Last Admin: 08/23/18 09:53 Dose: 0.1 mg Heparin Sodium (Porcine) (Heparin -) 1,000 unit IVPUSH PRN PRN PRN Reason: Heparin Last Admin: 08/23/18 06:54 Dose: 1,000 unit Heparin Sodium (Porcine) (Heparin -) 5,000 unit IVPUSH PRN PRN PRN Reason: Heparin Last Admin: 08/21/18 11:00 Dose: 5,000 unit Heparin Sodium (Porcine) 25, (000 unit/ Sodium Chloride) 500 mls @ 20 mls/hr IV TITR [facility]; Protocol Last Titration: 08/23/18 06:54 Dose: 500 unit/hr, 10 mls/hr Insulin Aspart (Novolog Vial Sliding Scale -) 1 vial SQ ACHS [facility]; Protocol Last Admin: 08/23/18 06:01 Dose: Not Given Insulin Detemir (Levemir Vial) 8 units SQ HS [facility] Morphine Sulfate (Morphine Sulfate) 2 mg IVPUSH Q4H PRN PRN Reason: PAIN LEVEL 7 - 10 Mupirocin (Bactroban Ointment (For Decolonization) -) 1 applic NS BID [facility] Stop: 08/26/18 21:59 Last Admin: 08/23/18 09:54 Dose: 1 applic Polyethylene Glycol (Miralax (For Daily Use) -) 17 gm PO DAILY [facility] Last Admin: 08/23/18 09:54 Dose: 17 grams Tamsulosin HCl (Flomax -) 0.4 mg PO DAILY@0830 [facility] Last Admin: 08/23/18 08:13 Dose: 0.4 mg Warfarin Sodium (Coumadin -) 2 mg PO DAILY@1800 [facility] General: Awake, alert, and fully oriented, in no acute distress Head: No signs of trauma Eyes: EOMI, sclera anicteric ENT: Dry mucus membranes Neck: Supple Lungs: Bibasilar rales Cardio: Irregular rhythm, S1 and S2 present Abdomen: Mild tenderness to deep palpation LUQ. No guarding, no rebound, no masses. Surgical scar present Extremities: Normal range of motion, multiple ecchymoses present SKIN: Warm, Dry, normal turgor Neurologic: Non-focal Labs: Assessment/Plan Low suspicion of Ischemic colitis versus Mesenteric Ischemia AFib on Coumadin with subtherapeutic INR HTN HLD DM Liver cancer s/p chemotherapy and partial hepatectomy in 2008 CVA CAD S/P CABG in 2003 Basal cell carcinoma History of [facility] not using PAP therapy LUIS IV Heparin / Coumadin Rate control Continue home meds Will need formal [facility] re-evaluation after D/C Restart Demadex Strict I & O Gylcemic control ABX per ID Cardiac Telemetry monitoring Dr Johnson
--- NOTE | 2018-08-23 11:15 | PN ---
Progress Note (short form) - Note Progress Note: SUBJECTIVE Patient seen and examined at the bedside. No acute events overnight. Had a bowel movement yesterday after receiving miralax. Asked if he could go home. OBJECTIVE Vital Signs Temperature 98.8 F 08/23/18 10:00 Pulse Rate 79 08/23/18 10:00 Respiratory Rate 16 08/23/18 10:00 Blood Pressure 129/75 08/23/18 10:00 O2 Sat by Pulse Oximetry (%) 100 08/23/18 10:00 General: Awake, alert, and fully oriented, in no acute distress Head: No signs of trauma Eyes: EOMI, sclera anicteric ENT: Moist mucus membranes Neck: Supple Lungs: Expiratory rhonchi at the bases Cardio: Irregular rhythm, S1 and S2 present Abdomen: Nontender to palpation. Soft, nondistended. No guarding, no rebound, no masses. Surgical scar present Extremities: Normal range of motion, multiple ecchymoses present SKIN: Warm, Dry, normal turgor Neurologic: Cranial nerves II through XII grossly intact. Normal speech ASSESSMENT 82yo M with PMH of HTN, HLD, DM, Liver cancer s/p chemotherapy and partial hepatectomy in 2008, CVA, CAD s/p CABG in 2003, Basal cell carcinoma, Afib on Coumadin complaining of abdominal pain x 3 days. CTAP suspicious for ischemic colitis vs mesenteric ischemia. No abdominal pain since 08/21/17 afternoon. HOD # 3. PLAN CV Elevated Troponin -Tpn=0.49 (from 0.73) -ECHO today with mild LA dilation, normal LV/RV function, mild Mitral/ TricuspidAortic regurgitation Afib, rate currently stable -subtherapeutic INR=1.45 -EKG, rate 93, QTc 474, atrial fibrillation with a left anterior fascicular block -placed on heparin drip on 08/21/18, transitioning to home coumadin today -checking INR in the morning Chronic HTN -monitor BP -continue home carvedilol 25mg, hydralazine 10mg, Nitroglycerin 0.4mg/hr, Clonidine 0.1mg/24hr Chronic diastolic HF -Small bilateral pleural effusions noted on CT -hold home olmesartan 20mg given LUIS -CXR with infiltrates, holding fluids Chronic HLD -continue home simvastatin 20mg given patient PULM Chronic mild LORRAINE, per chart review -Patient does not use therapy at home GI Abdominal pain, suspicious for ischemic colitis vs mesenteric ischemia -CTAP without contrast given patient's LUIS shows calcification of the superior mesenteric artery -Previous abdominal exam documented as "pain out of proportion" -Surgery following -GI following RENAL LUIS -Renal following -CXR with infiltrates, holding fluids -BUN/Cr= 62/2.3 (from 64/2.1 and baseline Cr is 1.7-2) -CT abdomen/pelvis without contrast in the ED -Risk of contrast nephropathy is 26% and risk of dialysis is 1% based on DANAE calculator developed by Kaushik et al. Repeat BMP prior to contrast; Continue IVF hydration at 1ml/lg for up to 12 hours post contrast exposure -Avoid NSAIDs and SOPHIA/ARB or diuretics for now -Renal US without acute pathology ENDO Chronic DM -BGM, NISS ID Lactic acidosis, likely secondary to mesenteric ischemia vs. unknown source of infection -Lactate=1.2 (from 2.6) -qSOFA=1 for RR -Patient afebrile, not tachycardic, not hypotensive, without leukocytosis -IV Zosyn, discontinued after three days -ID following FEN -NS @100cc/hr discontinued because of pulmonary infiltrates -Monitor electrolytes, replete as needed -Advanced to diabetic/low-salt diet Prophylaxis -VTE: SCDs, on heparin gtt, coumadin ordered for tonight -GI ppx: no need for now #Disposition: Safe to transfer to telemetry. #Full Code
[2018-08-23] MEDS: TORSEMIDE 20 MG TABLET (FP) PO SCH (12:46)
--- NOTE | 2018-08-23 12:53 | PN ---
Progress Note (short form) - Note Progress Note: s: no cp sob palps dizzy, abd pain o: Vital Signs Period Temp Pulse Resp BP Sys/Gregory Pulse Ox Last 24 Hr 97.7 F-98.8 F 62-88 13-20 96-141/43-80 100-100 Constitutional: Yes: Calm, Mild Distress Eyes: Yes: Conjunctiva Clear Neck: Yes: Supple, Trachea Midline Respiratory: Yes: Regular, CTA Bilaterally Gastrointestinal: Yes: Normal Bowel Sounds, Soft. No: Tenderness Cardiovascular: Yes: Pulse Irregular JVD: No Heart Sounds: Yes: S1, S2 Musculoskeletal: No: Back Pain Extremities: No: Cold Edema: No Peripheral Pulses: 2+ Left Doralis Pedis, 2+ Right Dorsalis Pedis Integumentary: No: Jaundice Neurological: Yes: Alert, Oriented Psychiatric: No: Agitated Current Medications Generic Name Dose Route Start Last Admin Trade Name Freq PRN Reason Stop Dose Admin Carvedilol 25 mg 08/21/18 22:00 08/23/18 09:53 Coreg - PO 25 mg BID RAMU Administration Chlorhexidine Gluconate 1 applic 08/21/18 22:00 08/22/18 21:58 Hibiclens For Decolonization - TP 1 applic HS [facility]U Administration Clonidine 0.1 mg 08/22/18 10:00 08/23/18 09:53 Catapres - PO 0.1 mg DAILY [facility] Administration Heparin Sodium (Porcine) 1,000 unit 08/21/18 10:21 08/23/18 06:54 Heparin - IVPUSH 1,000 unit PRN PRN Administration Heparin Heparin Sodium (Porcine) 5,000 unit 08/21/18 10:21 08/21/18 11:00 Heparin - IVPUSH 5,000 unit PRN PRN Administration Heparin Heparin Sodium (Porcine) 25, 500 mls @ 20 mls/hr 08/21/18 10:30 08/23/18 10: 30 000 unit/ Sodium Chloride IV 500 unit/hr TITR RAMU 10 mls/hr Administration Protocol 1,000 UNIT/HR Insulin Aspart 1 vial 08/21/18 16:30 08/23/18 11:52 Novolog Vial Sliding Scale - SQ 2 units ACHS [facility]U Administration Protocol Insulin Detemir 8 units 08/23/18 22:00 Levemir Vial SQ HS [facility] Morphine Sulfate 2 mg 08/21/18 16:02 Morphine Sulfate IVPUSH Q4H PRN PAIN LEVEL 7 - 10 Mupirocin 1 applic 08/21/18 22:00 08/23/18 09:54 Bactroban Ointment (For Decolonization) - NS 08/26/18 21:59 1 applic BID [facility] Administration Polyethylene Glycol 17 gm 08/22/18 16:30 08/23/18 09:54 Miralax (For Daily Use) - PO 17 grams DAILY [facility] Administration Tamsulosin HCl 0.4 mg 08/22/18 08:30 08/23/18 08:13 Flomax - PO 0.4 mg DAILY@0830 [facility] Administration Torsemide 20 mg 08/23/18 12:00 08/23/18 12:46 Demadex - PO 20 mg DAILY [facility] Administration Warfarin Sodium 2 mg 08/23/18 18:00 Coumadin - PO DAILY@1800 [facility] CBC, BMP 08/23/18 05:30 08/23/18 05:30 Assessment/Plan EKG: afib, IVCD, PVCs MIBI 07/05 (pers): no STs; small area apical isch and basal inferolateral wall; mild global LV hypo, EF 46% tele: afib rate controlled Echo 10/07: 1. The left ventricular size is normal. 2. Overall left ventricular systolic function is normal with, an EF between 60 - 65 %. 3. LA pressure is uncertain. 4. No regional wall motion abnormalities were noted (basal inferolateral wall may be mildly hypokinetic). 5. The right ventricle is normal in size and function. 6. Left atrium is severely dilated by volume. 7. There is mild aortic regurgitation. 8. The mitral valve is normal in appearance, with no prolapse, flail leaflet, or tethered motion noted. 9. 2 separate MR jets are present: one directed anteriorly, the other central. The anterior jet hugs the antreior LA wall/interatrial septum and is not seen to wrap around the posterior LA wall. The visual appearance is of moderate mitral regurgitation, however the eccentric nature of the anterior jet may lead to underestimation of MR severity on color jet flow analysis. The peak mitral inflow velocity (0.7 m/sec) makes severe mitral regurgitation less likely. There is no systolic flow reversal present in the pulmonary vein. PISA hemisphere could not be measured. Estimated regurgitant volume by volumetric measurements yields and estimate of 35 cc. 10. Mild tricuspid regurgitation present. 11. Unable to estimate RVSP due to inadequate TR jet spectral doppler profile. echo 07/2018: nl lv/rv, lae, mild mr/tr/ar, nl rvsp a/p: 81 yo with h/o CAD s/p CABG, afib on coumadin CVA, hypertension, hyperlipidemia, IDDM, liver cancer(Chemo, 40% liver removed in 2008), who p/w abd pain Abd pain - ?mesenteric ischemia at first, now thought to be constipation - manage per GI pAFib - Rate controlled on coreg - on heparin gtt/warfarin CAD, S/P CABG '05: GAN TO LAD, SVG SEQUENTIAL TO DIAG-->OM; SVG TO RPDA. - on arb, statin, can resume elevated trop: -pt has no cp/sob, ecg unremarkable for ischemia, but second trop mildly elevated (now trending down). Possibly demand ischemia. He is already on AC, cont same. Echo unremarkable here. Would plan for nuclear stress test on sunday for risk stratification prior to dc. Chronic diastolic HF - currently euvolemic - holding diuretics Mod MR - outpatient follow up, stable HTN - stable LORRAINE - cont bipap LUIS on CKD (bl 1.4-1.9) - nephrology consulted
--- NOTE | 2018-08-23 14:00 | PN ---
Progress Note (short form) - Note Progress Note: Renal follow up for LUIS/CKD Pt seen and examined in the ICU awake and alert no abd pain today, tolerating oral diet, had a BM making urine Vital Signs Temperature 98.8 F 08/23/18 10:00 Pulse Rate 79 08/23/18 10:00 Respiratory Rate 16 08/23/18 10:00 Blood Pressure 129/75 08/23/18 10:00 O2 Sat by Pulse Oximetry (%) 100 08/23/18 12:00 Intake & Output 08/20/18 08/21/18 08/22/18 08/23/18 23:59 23:59 23:59 23:59 Intake Total 2540 3366 1466 Output Total 730 650 200 Balance 1810 2716 1266 Weight 74.8 kg 76.521 kg 77.927 kg NAD neck supple, no JVD RRR, No M/R CTA, no rales mild distension, no tenderness No LE edema, clubbing or cyanosis No bladder distension CBC, BMP 08/23/18 05:30 08/23/18 05:30 Current Medications Carvedilol (Coreg -) 25 mg PO BID [facility] Last Admin: 08/23/18 09:53 Dose: 25 mg Chlorhexidine Gluconate (Hibiclens For Decolonization -) 1 applic TP HS [facility] Last Admin: 08/22/18 21:58 Dose: 1 applic Clonidine (Catapres -) 0.1 mg PO DAILY [facility] Last Admin: 08/23/18 09:53 Dose: 0.1 mg Heparin Sodium (Porcine) (Heparin -) 1,000 unit IVPUSH PRN PRN PRN Reason: Heparin Last Admin: 08/23/18 06:54 Dose: 1,000 unit Heparin Sodium (Porcine) (Heparin -) 5,000 unit IVPUSH PRN PRN PRN Reason: Heparin Last Admin: 08/21/18 11:00 Dose: 5,000 unit Heparin Sodium (Porcine) 25, (000 unit/ Sodium Chloride) 500 mls @ 20 mls/hr IV TITR [facility]; Protocol Last Admin: 08/23/18 10:30 Dose: 500 unit/hr, 10 mls/hr Insulin Aspart (Novolog Vial Sliding Scale -) 1 vial SQ ACHS [facility]; Protocol Last Admin: 08/23/18 11:52 Dose: 2 units Insulin Detemir (Levemir Vial) 8 units SQ [facility] Morphine Sulfate (Morphine Sulfate) 2 mg IVPUSH Q4H PRN PRN Reason: PAIN LEVEL 7 - 10 Mupirocin (Bactroban Ointment (For Decolonization) -) 1 applic NS BID [facility] Stop: 08/26/18 21:59 Last Admin: 08/23/18 09:54 Dose: 1 applic Polyethylene Glycol (Miralax (For Daily Use) -) 17 gm PO DAILY [facility] Last Admin: 08/23/18 09:54 Dose: 17 grams Tamsulosin HCl (Flomax -) 0.4 mg PO DAILY@0830 [facility] Last Admin: 08/23/18 08:13 Dose: 0.4 mg Torsemide (Demadex -) 20 mg PO DAILY [facility] Last Admin: 08/23/18 12:46 Dose: 20 mg Warfarin Sodium (Coumadin -) 2 mg PO DAILY@1800 [facility] 82 year old gentleman with hx of Afib on Coumadin, hypertension, hyperlipidemia , IDDM, Liver cancer s/p partial resection, CAD s/p CABG, CKD (baseline Cr 1.7-2 ) who presented with Abd pain worsening over the last few days. #LUIS on CKD #Contrast nephropathy risk stratification #Contrast nephropathy prophylaxis #Abd pain r/o acute abd vs. bowel ischemia #HTN #DM #CAD with preserved ejection fraction #Lactic acidosis (now resolved) Baseline Cr is 1.7-2 Renal function improved and stable restarted on diuretics continue ICU monitoring Trend renal function and electrolytes Thank you Ramy Contreras DO
[2018-08-23 14:21] VITALS: BMI 28.4
[2018-08-23] MEDS: WARFARIN NA 2 MG TABLET (UD) PO SCH (17:15)
[2018-08-23] MEDS ORDERED: INSULIN (LEVEMIR) 100 UNITS/ML UNITS SQ SCH (22:00)
[2018-08-23] MEDS: CHLORHEXIDINE GLUCONATE 4% CLEANSER FOR DECOLONIZATION TP SCH (22:31)
[2018-08-24] MEDS: INSULIN SLIDING SCALE (NOVOLOG) 1 VIAL SQ SCH ×3 (06:26→16:42)
[2018-08-24 06:33] LABS: BASO % 0.4 % (0-2.0); EOS % 3.8 % (0-4.5); HEMATOCRIT 30.3 % (35.4-49); HEMOGLOBIN 10.5 GM/dL (11.7-16.9); LYMPH % 23.7 % (8-40); MCH 33.3 pg (25.7-33.7); MCHC 34.6 g/dl (32.0-35.9); MEAN CELL VOLUME 96.3 fl (80-96); MEAN PLT VOLUME 9.6 fl (7.5-11.1); MONO % 12.5 % (3.8-10.2); NEUT % 59.6 % (42.8-82.8); PLATELET COUNT 69 K/MM3 (134-434); RBC 3.14 M/mm3 (4.00-5.60); RDW 13.9 % (11.9-15.9); WHITE BLOOD COUNT 3.2 K/mm3 (4.0-10.0)
[2018-08-24 06:51] LABS: INR 2.48 (0.83-1.09); PROTHROMBIN TIME (PATIENT) 29.5 SEC (9.7-13.0)
[2018-08-24 08:19] LABS: ACTIVATED PTT 46.7 SECONDS (25.2-36.5)
[2018-08-24] MEDS ORDERED: PT OWN MED DRAWER 7, Y5N ONE (08:38)
[2018-08-24] MEDS: TAMSULOSIN HCL 0.4 MG CAP PO SCH (08:49)
[2018-08-24 08:53] LABS: ALBUMIN 2.9 g/dl (3.4-5.0); ALK PHOS 75 U/L (45-117); ANION GAP 7 MMOL/L (8-16); BILIRUBIN,TOTAL 0.9 mg/dL (0.2-1); BLOOD UREA NITROGEN 60 mg/dL (7-18); CALCIUM 8.1 mg/dL (8.5-10.1); CHLORIDE 109 mmol/L (98-107); CO2 22 mmol/L (21-32); CREATININE 2.2 mg/dL (0.55-1.3); GLUCOSE,RANDOM 155 mg/dL (74-106); MAGNESIUM 2.4 mg/dL (1.8-2.4); PHOSPHOROUS 3.1 mg/dL (2.5-4.9); POTASSIUM 4.3 mmol/L (3.5-5.1); SGOT/AST 47 U/L (15-37); SGPT/ALT 42 U/L (13-61); SODIUM 138 mmol/L (136-145); TOT PROT 5.5 g/dl (6.4-8.2)
[2018-08-24] MEDS: MUPIROCIN 2% TOPICAL OINTMENT FOR DECOLONIZATION NS SCH (09:33)
[2018-08-24] MEDS: CARVEDILOL 25 MG TABLET (FP) PO SCH (09:34)
[2018-08-24] MEDS: cloNIDine HCL 0.1 MG TABLET PO SCH (09:34)
[2018-08-24] MEDS: TORSEMIDE 20 MG TABLET (FP) PO SCH (09:35)
[2018-08-24] MEDS: POLYETHYLENE GLYCOL 3350 119 GM BTL PO SCH (09:35)
--- NOTE | 2018-08-24 09:35 | PN ---
Teaching Attending Note Name of Resident: Brandon Richard ATTENDING PHYSICIAN STATEMENT I saw and evaluated the patient. I reviewed the resident's note and discussed the case with the resident. I agree with the resident's findings and plan as documented. SUBJECTIVE: Patient seen and examined in the ICU. Awake and alert. Eating breakfast. Denies abdominal symptoms. Breathing feels OK. No CP or SOB. CXR: Bilateral congestive changes Intake & Output 08/21/18 08/22/18 08/23/18 08/24/18 23:59 23:59 23:59 23:59 Intake Total 2540 3366 2606 220 Output Total 730 650 640 Balance 1810 2716 1966 220 Weight 164 lb 14.492 oz 168 lb 11.2 oz 171 lb 174 lb 3.2 oz Last Vital Signs Temp Pulse Resp BP Pulse Ox 98.1 F 68 17 153/78 100 08/24/18 08:00 08/24/18 08:00 08/24/18 08:00 08/24/18 08:00 08/24/18 08:00 Active Medications Carvedilol (Coreg -) 25 mg PO BID [facility] Last Admin: 08/23/18 22:31 Dose: 25 mg Chlorhexidine Gluconate (Hibiclens For Decolonization -) 1 applic TP HS [facility] Last Admin: 08/23/18 22:31 Dose: 1 applic Clonidine (Catapres -) 0.1 mg PO DAILY [facility] Last Admin: 08/23/18 09:53 Dose: 0.1 mg Heparin Sodium (Porcine) (Heparin -) 1,000 unit IVPUSH PRN PRN PRN Reason: Heparin Last Admin: 08/23/18 06:54 Dose: 1,000 unit Heparin Sodium (Porcine) (Heparin -) 5,000 unit IVPUSH PRN PRN PRN Reason: Heparin Last Admin: 08/21/18 11:00 Dose: 5,000 unit Heparin Sodium (Porcine) 25, (000 unit/ Sodium Chloride) 500 mls @ 20 mls/hr IV TITR [facility]; Protocol Last Titration: 08/23/18 14:00 Dose: 500 unit/hr, 10 mls/hr Insulin Aspart (Novolog Vial Sliding Scale -) 1 vial SQ ACHS [facility]; Protocol Last Admin: 08/24/18 06:26 Dose: Not Given Insulin Detemir (Levemir Vial) 8 units SQ HS [facility] Last Admin: 08/23/18 22:29 Dose: 8 units Morphine Sulfate (Morphine Sulfate) 2 mg IVPUSH Q4H PRN PRN Reason: PAIN LEVEL 7 - 10 Mupirocin (Bactroban Ointment (For Decolonization) -) 1 applic NS BID [facility] Stop: 08/26/18 21:59 Last Admin: 08/23/18 22:31 Dose: 1 applic Polyethylene Glycol (Miralax (For Daily Use) -) 17 gm PO DAILY [facility] Last Admin: 08/23/18 09:54 Dose: 17 grams Tamsulosin HCl (Flomax -) 0.4 mg PO DAILY@0830 [facility] Last Admin: 08/24/18 08:49 Dose: 0.4 mg Torsemide (Demadex -) 20 mg PO DAILY [facility] Last Admin: 08/23/18 12:46 Dose: 20 mg Warfarin Sodium (Coumadin -) 2 mg PO DAILY@1800 [facility] Last Admin: 08/23/18 17:15 Dose: 2 mg General: Awake, alert, and fully oriented, in no acute distress Head: No signs of trauma Eyes: EOMI, sclera anicteric ENT: Dry mucus membranes Neck: Supple Lungs: Bibasilar rales Cardio: Irregular rhythm, S1 and S2 present Abdomen: Mild tenderness to deep palpation LUQ. No guarding, no rebound, no masses. Surgical scar present Extremities: Normal range of motion, multiple ecchymoses present SKIN: Warm, Dry, normal turgor Neurologic: Non-focal Labs: Laboratory Results - last 24 hr 08/23/18 08/23/18 08/23/18 11:16 12:20 17:08 WBC RBC Hgb Hct MCV MCH MCHC RDW Plt Count MPV Absolute Neuts (auto) Neutrophils % Lymphocytes % Monocytes % Eosinophils % Basophils % Nucleated RBC % PT with INR INR PTT (Actin FS) 50.9 H Saline-Adjusted PTT PTT Patient/Cntrl Mix PTT Normal Plasma Pre Sodium Potassium Chloride Carbon Dioxide Anion Gap BUN Creatinine Creat Clearance w eGFR POC Glucometer 211.23421 276.80556 Random Glucose Calcium Phosphorus Magnesium Total Bilirubin AST ALT Alkaline Phosphatase Total Protein Albumin 08/23/18 08/24/18 08/24/18 22:07 05:15 05:15 WBC 3.2 L RBC 3.14 L Hgb 10.5 L Hct 30.3 L MCV 96.3 H MCH 33.3 MCHC 34.6 RDW 13.9 Plt Count 69 L MPV 9.6 Absolute Neuts (auto) 1.9 Neutrophils % 59.6 Lymphocytes % 23.7 Monocytes % 12.5 H Eosinophils % 3.8 D Basophils % 0.4 Nucleated RBC % 0 PT with INR 29.50 H INR 2.48 H PTT (Actin FS) 46.7 H Saline-Adjusted PTT PTT Patient/Cntrl Mix PTT Normal Plasma Pre Sodium Potassium Chloride Carbon Dioxide Anion Gap BUN Creatinine Creat Clearance w eGFR POC Glucometer [phone] Random Glucose Calcium Phosphorus Magnesium Total Bilirubin AST ALT Alkaline Phosphatase Total Protein Albumin 08/24/18 08/24/18 08/24/18 05:15 05:15 05:44 WBC RBC Hgb Hct MCV MCH MCHC RDW Plt Count MPV Absolute Neuts (auto) Neutrophils % Lymphocytes % Monocytes % Eosinophils % Basophils % Nucleated RBC % PT with INR INR PTT (Actin FS) Saline-Adjusted PTT Cancelled PTT Patient/Cntrl Mix Cancelled PTT Normal Plasma Pre Cancelled Sodium 138 Potassium 4.3 Chloride 109 H Carbon Dioxide 22 Anion Gap 7 L BUN 60 H Creatinine 2.2 H Creat Clearance w eGFR 28.80 POC Glucometer 159.71474 Random Glucose 155 H Calcium 8.1 L Phosphorus 3.1 Magnesium 2.4 Total Bilirubin 0.9 AST 47 H ALT 42 Alkaline Phosphatase 75 Total Protein 5.5 L Albumin 2.9 L Assessment/Plan Low suspicion of Ischemic colitis versus Mesenteric Ischemia AFib on Coumadin with subtherapeutic INR HTN HLD DM Liver cancer s/p chemotherapy and partial hepatectomy in 2008 CVA CAD S/P CABG in 2003 Basal cell carcinoma History of [facility] not using PAP therapy LUIS Coumadin Rate control Will need formal [facility] re-evaluation after D/C Demadex Strict I & O Gylcemic control ABX per ID D/C planning Dr Johnson
--- NOTE | 2018-08-24 10:02 | PN ---
Progress Note, Physician Chief Complaint: The patient seen in the ICU. comfortable. Sitting by his bed. Says that he is feeling much better. No chest pains. History of Present Illness: 82 year old gentleman with hx of Afib on Coumadin, hypertension, hyperlipidemia , IDDM, Liver cancer s/p partial resection, CAD s/p CABG, CKD who presented with Abd pain worsening over the last few days. - Current Medication List Current Medications: Active Medications Carvedilol (Coreg -) 25 mg PO BID [facility] Last Admin: 08/24/18 09:34 Dose: 25 mg Chlorhexidine Gluconate (Hibiclens For Decolonization -) 1 applic TP HS [facility] Last Admin: 08/23/18 22:31 Dose: 1 applic Heparin Sodium (Porcine) (Heparin -) 1,000 unit IVPUSH PRN PRN PRN Reason: Heparin Last Admin: 08/23/18 06:54 Dose: 1,000 unit Heparin Sodium (Porcine) (Heparin -) 5,000 unit IVPUSH PRN PRN PRN Reason: Heparin Last Admin: 08/21/18 11:00 Dose: 5,000 unit Heparin Sodium (Porcine) 25, (000 unit/ Sodium Chloride) 500 mls @ 20 mls/hr IV TITR [facility]; Protocol Last Titration: 08/23/18 14:00 Dose: 500 unit/hr, 10 mls/hr Insulin Aspart (Novolog Vial Sliding Scale -) 1 vial SQ [facility]; Protocol Last Admin: 08/24/18 06:26 Dose: Not Given Insulin Detemir (Levemir Vial) [address] [facility] Last Admin: 08/23/18 22:29 Dose: 8 units Morphine Sulfate (Morphine Sulfate) 2 mg IVPUSH Q4H PRN PRN Reason: PAIN LEVEL 7 - 10 Mupirocin (Bactroban Ointment (For Decolonization) -) 1 applic NS BID [facility] Stop: 08/26/18 21:59 Last Admin: 08/24/18 09:33 Dose: 1 applic Polyethylene Glycol (Miralax (For Daily Use) -) 17 gm PO DAILY [facility] Last Admin: 08/24/18 09:35 Dose: 17 grams Tamsulosin HCl (Flomax -) 0.4 mg PO DAILY@0830 [facility] Last Admin: 08/24/18 08:49 Dose: 0.4 mg Torsemide (Demadex -) 20 mg PO DAILY [facility] Last Admin: 08/24/18 09:35 Dose: 20 mg Warfarin Sodium (Coumadin -) 2 mg PO DAILY@1800 [facility] Last Admin: 08/23/18 17:15 Dose: 2 mg - Objective Vital Signs: Vital Signs Temperature 98.1 F 08/24/18 08:00 Pulse Rate 68 08/24/18 08:00 Respiratory Rate 17 08/24/18 08:00 Blood Pressure 153/78 08/24/18 08:00 O2 Sat by Pulse Oximetry (%) 100 08/24/18 08:00 Constitutional: Yes: No Distress, Calm Eyes: Yes: Conjunctiva Clear HENT: Yes: Normocephalic Neck: Yes: Thyromegaly Cardiovascular: Yes: Tachycardia, Pulse Irregular, S1, S2 Respiratory: Yes: CTA Bilaterally, Diminished Gastrointestinal: Yes: Normal Bowel Sounds, Soft Genitourinary: No: CVA Tenderness - Left, CVA Tenderness - Right Musculoskeletal: No: Joint Stiffness Neurological: Yes: Alert Labs: CBC, BMP 08/24/18 05:15 08/24/18 05:15 INR, PTT INR 2.48 (0.83-1.09) H 08/24/18 05:15 Problem List - Problems (1) Acute kidney failure Code(s): N17.9 - ACUTE KIDNEY FAILURE, UNSPECIFIED (2) CKD (chronic kidney disease) Code(s): N18.9 - CHRONIC KIDNEY DISEASE, UNSPECIFIED (3) Abdominal pain Code(s): R10.9 - UNSPECIFIED ABDOMINAL PAIN Qualifiers: Abdominal location: generalized Qualified Code(s): R10.84 - Generalized abdominal pain (4) Afib Code(s): I48.91 - UNSPECIFIED ATRIAL FIBRILLATION (5) Anemia Code(s): D64.9 - ANEMIA, UNSPECIFIED (6) Liver cancer Code(s): C22.9 - MALIG NEOPLASM OF LIVER, NOT SPECIFIED PRIMARY OR SEC Assessment/Plan 82 year old gentleman with hx of Afib on Coumadin, hypertension, hyperlipidemia , IDDM, Liver cancer s/p partial resection, CAD s/p CABG, CKD who presented with Abd pain worsening over the last few days. #LUIS on CKD #Contrast nephropathy risk stratification #Contrast nephropathy prophylaxis #Abd pain #HTN #DM #CAD with preserved ejection fraction The renal functions are stabilizing. Baseline Cr is 1.7-2 On PO Torsemide. Noted that the patient has a Clonideine TTS- 2 patch from home, and also on Clonidine tabs. Will D/C the tabs. Restarted on diuretics Continue ICU monitoring as needed. Trend renal function and electrolytes Aparna Mcghee MD
[2018-08-24] MEDS: HEPARIN - 25,000 UNIT in SODIUM CHLORIDE 495 ML IV SCH (10:30)
--- NOTE | 2018-08-24 12:05 | PN ---
Progress Note, Physician History of Present Illness: No complaints this AM No chest pains Breathing still labored with ambulation - Current Medication List Current Medications: Active Medications Carvedilol (Coreg -) 25 mg PO BID [facility] Last Admin: 08/24/18 09:34 Dose: 25 mg Chlorhexidine Gluconate (Hibiclens For Decolonization -) 1 applic TP HS [facility] Last Admin: 08/23/18 22:31 Dose: 1 applic Clonidine HCl (Catapres Tts Patch -) 0.2 mg TD Q7D@1000 [facility] Heparin Sodium (Porcine) (Heparin -) 1,000 unit IVPUSH PRN PRN PRN Reason: Heparin Last Admin: 08/23/18 06:54 Dose: 1,000 unit Heparin Sodium (Porcine) (Heparin -) 5,000 unit IVPUSH PRN PRN PRN Reason: Heparin Last Admin: 08/21/18 11:00 Dose: 5,000 unit Heparin Sodium (Porcine) 25, (000 unit/ Sodium Chloride) 500 mls @ 20 mls/hr IV TITR [facility]; Protocol Last Admin: 08/24/18 10:30 Dose: Not Given Insulin Aspart (Novolog Vial Sliding Scale -) [address] [facility]; Protocol Last Admin: 08/24/18 11:02 Dose: 5 units Insulin Detemir (Levemir Vial) 8 units SQ [facility] Last Admin: 08/23/18 22:29 Dose: 8 units Morphine Sulfate (Morphine Sulfate) 2 mg IVPUSH Q4H PRN PRN Reason: PAIN LEVEL 7 - 10 Mupirocin (Bactroban Ointment (For Decolonization) -) 1 applic NS BID [facility] Stop: 08/26/18 21:59 Last Admin: 08/24/18 09:33 Dose: 1 applic Polyethylene Glycol (Miralax (For Daily Use) -) 17 gm PO DAILY [facility] Last Admin: 08/24/18 09:35 Dose: 17 grams Tamsulosin HCl (Flomax -) 0.4 mg PO DAILY@0830 [facility] Last Admin: 08/24/18 08:49 Dose: 0.4 mg Torsemide (Demadex -) 20 mg PO DAILY [facility] Last Admin: 08/24/18 09:35 Dose: 20 mg Warfarin Sodium (Coumadin -) 2 mg PO DAILY@1800 [facility] Last Admin: 08/23/18 17:15 Dose: 2 mg - Objective Vital Signs: Vital Signs Temperature 97.9 F 08/24/18 12:00 Pulse Rate 71 08/24/18 12:00 Respiratory Rate 17 08/24/18 12:00 Blood Pressure 132/50 L 08/24/18 12:00 O2 Sat by Pulse Oximetry (%) 96 08/24/18 10:53 Constitutional: Yes: No Distress Eyes: Yes: WNL HENT: Yes: WNL Neck: Yes: WNL Cardiovascular: Yes: Pulse Irregular Respiratory: Yes: Diminished Gastrointestinal: Yes: Normal Bowel Sounds Extremities: Yes: WNL Edema: Yes Edema: LLE: 2+, RLE: 2+ Labs: CBC, BMP 08/24/18 05:15 08/24/18 05:15 INR, PTT INR 2.48 (0.83-1.09) H 08/24/18 05:15 Assessment/Plan a/p: 81 yo with h/o CAD s/p CABG, afib on coumadin CVA, hypertension, hyperlipidemia, IDDM, liver cancer(Chemo, 40% liver removed in 2008), who p/w abd pain Abd pain - ?mesenteric ischemia at first, now thought to be constipation - manage per GI pAFib - Rate controlled on coreg - INR therapeutic, would d/c IV Heparin -Watch platelet count (69k this AM) CAD, S/P CABG '05: GAN TO LAD, SVG SEQUENTIAL TO DIAG-->OM; SVG TO RPDA. - on arb, statin, can resume elevated trop: -pt has no cp/sob, ecg unremarkable for ischemia, but second trop mildly elevated (now trending down). Possibly demand ischemia. He is already on AC, cont same. Echo unremarkable here. -As per Dr. Hill- Would plan for nuclear stress test on sunday for risk stratification prior to dc. Chronic diastolic HF - On torsemide 20mg -Creat 2.2
--- NOTE | 2018-08-24 12:38 | PN ---
Physical Exam: SUBJECTIVE: Patient seen and examined at bedside. No overnight events. No new complaints. Doing well overall. Denies CP, RAMSEY, SOB, abdominal pain, nausea or vomiting. OBJECTIVE: Vital Signs Period Temp Pulse Resp BP Sys/Gregory Pulse Ox Last 24 Hr 97.9 F-98.6 F 64-86 16-22 112-159/49-84 96-100 General: Awake, alert, and fully oriented, in no acute distress Head: No signs of trauma Eyes: EOMI, sclera anicteric ENT: Moist mucus membranes Neck: Supple Lungs: Expiratory rhonchi at the bases Cardio: Irregular rhythm, S1 and S2 present Abdomen: Nontender to palpation. Soft, nondistended. No guarding, no rebound, no masses. Surgical scar present Extremities: Normal range of motion, multiple ecchymoses present SKIN: Warm, Dry, normal turgor Neurologic: Cranial nerves II through XII grossly intact. Normal speech Laboratory Results - last 24 hr 08/23/18 08/23/18 08/23/18 11:16 12:20 17:08 WBC RBC Hgb Hct MCV MCH MCHC RDW Plt Count MPV Absolute Neuts (auto) Neutrophils % Lymphocytes % Monocytes % Eosinophils % Basophils % Nucleated RBC % PT with INR INR PTT (Actin FS) 50.9 H Saline-Adjusted PTT PTT Patient/Cntrl Mix PTT Normal Plasma Pre Sodium Potassium Chloride Carbon Dioxide Anion Gap BUN Creatinine Creat Clearance w eGFR POC Glucometer [phone] Random Glucose Calcium Phosphorus Magnesium Total Bilirubin AST ALT Alkaline Phosphatase Total Protein Albumin 08/23/18 08/24/18 08/24/18 22:07 05:15 05:15 WBC 3.2 L RBC 3.14 L Hgb 10.5 L Hct 30.3 L MCV 96.3 H MCH 33.3 MCHC 34.6 RDW 13.9 Plt Count 69 L MPV 9.6 Absolute Neuts (auto) 1.9 Neutrophils % 59.6 Lymphocytes % 23.7 Monocytes % 12.5 H Eosinophils % 3.8 D Basophils % 0.4 Nucleated RBC % 0 PT with INR 29.50 H INR 2.48 H PTT (Actin FS) 46.7 H Saline-Adjusted PTT PTT Patient/Cntrl Mix PTT Normal Plasma Pre Sodium Potassium Chloride Carbon Dioxide Anion Gap BUN Creatinine Creat Clearance w eGFR POC Glucometer [phone] Random Glucose Calcium Phosphorus Magnesium Total Bilirubin AST ALT Alkaline Phosphatase Total Protein Albumin 08/24/18 08/24/18 08/24/18 05:15 05:15 05:44 WBC RBC Hgb Hct MCV MCH MCHC RDW Plt Count MPV Absolute Neuts (auto) Neutrophils % Lymphocytes % Monocytes % Eosinophils % Basophils % Nucleated RBC % PT with INR INR PTT (Actin FS) Saline-Adjusted PTT Cancelled PTT Patient/Cntrl Mix Cancelled PTT Normal Plasma Pre Cancelled Sodium 138 Potassium 4.3 Chloride 109 H Carbon Dioxide 22 Anion Gap 7 L BUN 60 H Creatinine 2.2 H Creat Clearance w eGFR 28.80 POC Glucometer [phone] Random Glucose 155 H Calcium 8.1 L Phosphorus 3.1 Magnesium 2.4 Total Bilirubin 0.9 AST 47 H ALT 42 Alkaline Phosphatase 75 Total Protein 5.5 L Albumin 2.9 L 08/24/18 10:55 WBC RBC Hgb Hct MCV MCH MCHC RDW Plt Count MPV Absolute Neuts (auto) Neutrophils % Lymphocytes % Monocytes % Eosinophils % Basophils % Nucleated RBC % PT with INR INR PTT (Actin FS) Saline-Adjusted PTT PTT Patient/Cntrl Mix PTT Normal Plasma Pre Sodium Potassium Chloride Carbon Dioxide Anion Gap BUN Creatinine Creat Clearance w eGFR POC Glucometer [phone] Random Glucose Calcium Phosphorus Magnesium Total Bilirubin AST ALT Alkaline Phosphatase Total Protein Albumin Active Medications Generic Name Dose Route Start Last Admin Trade Name Freq PRN Reason Stop Dose Admin Carvedilol 25 mg 08/21/18 22:00 08/24/18 09:34 Coreg - PO 25 mg BID RAMU Administration Chlorhexidine Gluconate 1 applic 08/21/18 22:00 08/23/18 22:31 Hibiclens For Decolonization - TP 1 applic HS RAMU Administration Clonidine HCl 0.2 mg 08/25/18 10:00 Catapres Tts Patch - TD Q7D@1000 ARMU Heparin Sodium (Porcine) 1,000 unit 08/21/18 10:21 08/23/18 06:54 Heparin - IVPUSH 1,000 unit PRN PRN Administration Heparin Heparin Sodium (Porcine) 5,000 unit 08/21/18 10:21 08/21/18 11:00 Heparin - IVPUSH 5,000 unit PRN PRN Administration Heparin Heparin Sodium (Porcine) 25, 500 mls @ 20 mls/hr 08/21/18 10:30 08/24/18 10: 30 000 unit/ Sodium Chloride IV Not Given TITR RAMU Protocol 1,000 UNIT/HR Insulin Aspart 1 vial 08/21/18 16:30 08/24/18 11:02 Novolog Vial Sliding Scale - SQ 5 units ACHS RAMU Administration Protocol Insulin Detemir 8 units 08/23/18 22:00 08/23/18 22:29 Levemir Vial SQ 8 units HS RAMU Administration Morphine Sulfate 2 mg 08/21/18 16:02 Morphine Sulfate IVPUSH Q4H PRN PAIN LEVEL 7 - 10 Mupirocin 1 applic 08/21/18 22:00 08/24/18 09:33 Bactroban Ointment (For Decolonization) - NS 08/26/18 21:59 1 applic BID RAMU Administration Polyethylene Glycol 17 gm 08/22/18 16:30 08/24/18 09:35 Miralax (For Daily Use) - PO 17 grams DAILY RAMU Administration Tamsulosin HCl 0.4 mg 08/22/18 08:30 08/24/18 08:49 Flomax - PO 0.4 mg DAILY@0830 RAMU Administration Torsemide 20 mg 08/23/18 12:00 08/24/18 09:35 Demadex - PO 20 mg DAILY RAMU Administration Warfarin Sodium 2 mg 08/23/18 18:00 08/23/18 17:15 Coumadin - PO 2 mg DAILY@1800 RAMU Administration ASSESSMENT 82yo M with PMH of HTN, HLD, DM, Liver cancer s/p chemotherapy and partial hepatectomy in 2008, CVA, CAD s/p CABG in 2003, Basal cell carcinoma, Afib on Coumadin complaining of abdominal pain x 3 days. CTAP suspicious for ischemic colitis vs mesenteric ischemia. PLAN CV * Elevated Troponin-Tpn=0.49 (from 0.73) will have stress test as outpatient. * ECHO showed with mild LA dilation, normal LV/RV function, mild Mitral/ TricuspidAortic regurgitation Afib, rate currently stable * INR=2.48- heparin drip stopped * Chronic HTN * monitor BP * continue home carvedilol 25mg, hydralazine 10mg, Nitroglycerin 0.4mg/hr, Clonidine 0.1mg/24hr * Chronic diastolic HF * Small bilateral pleural effusions noted on CT * restart olmesartan 20mg * CXR with infiltrates, holding fluids * CHronic HLD-continue home simvastatin 20mg PULM * Chronic mild LORRAINE, per chart review * Patient does not use therapy at home * Will obtain ambulating pulse ox today. GI * Abdominal pain, suspicious for ischemic colitis vs mesenteric ischemia * CTAP without contrast given patient's LUIS shows calcification of the superior mesenteric artery * Previous abdominal exam documented as "pain out of proportion" * Surgery following * GI following RENAL * LUIS * CXR with infiltrates, holding fluids * BUN/Cr=60/2.2 * CT abdomen/pelvis without contrast in the ED * Can restart ARB now that kidney function at baseline. * Renal US without acute pathology ENDO * Chronic DM * BGM, NISS ID * Lactic acidosis, likely secondary to mesenteric ischemia vs. unknown source of infection * Lactate=1.2 (from 2.6) * qSOFA=1 for RR * Patient afebrile, not tachycardic, not hypotensive, without leukocytosis * IV Zosyn, discontinued after three days * ID following FEN * No IV fluids given pulmonary congestion. * Monitor electrolytes, replete as needed * Advanced to diabetic/low-salt diet Prophylaxis * VTE: SCDs, coumadin * GI ppx: no need for now #Disposition: Safe to transfer to telemetry. #Full Code Visit type - Emergency Visit Emergency Visit: Yes ED Registration Date: 08/21/18 Care time: The patient presented to the Emergency Department on the above date and was hospitalized for further evaluation of their emergent condition. - New Patient This patient is new to me today: Yes Date on this admission: 08/24/18 - Critical Care Critical Care patient: Yes Total Critical Care Time (in minutes): 32 Critical Care Statement: The care of this patient involved high complexity decision making to prevent further life threatening deterioration of the patient 's condition and/or to evaluate & treat vital organ system(s) failure or risk of failure.
--- NOTE | 2018-08-24 16:05 | PN ---
Progress Note, Physician Chief Complaint: EVENTS AND NOTES REVIEWED NAD FEELING BETTER - Current Medication List Current Medications: Active Medications Carvedilol (Coreg -) 25 mg PO BID [facility] Last Admin: 08/24/18 09:34 Dose: 25 mg Chlorhexidine Gluconate (Hibiclens For Decolonization -) 1 applic TP HS [facility] Last Admin: 08/23/18 22:31 Dose: 1 applic Clonidine HCl (Catapres Tts Patch -) 0.2 mg TD Q7D@1000 [facility] Heparin Sodium (Porcine) (Heparin -) 1,000 unit IVPUSH PRN PRN PRN Reason: Heparin Last Admin: 08/23/18 06:54 Dose: 1,000 unit Heparin Sodium (Porcine) (Heparin -) 5,000 unit IVPUSH PRN PRN PRN Reason: Heparin Last Admin: 08/21/18 11:00 Dose: 5,000 unit Insulin Aspart (Novolog Vial Sliding Scale -) 1 vial SQ [facility]; Protocol Last Admin: 08/24/18 11:02 Dose: 5 units Insulin Detemir (Levemir Vial) 8 units SQ [facility] Last Admin: 08/23/18 22:29 Dose: 8 units Morphine Sulfate (Morphine Sulfate) 2 mg IVPUSH Q4H PRN PRN Reason: PAIN LEVEL 7 - 10 Mupirocin (Bactroban Ointment (For Decolonization) -) 1 applic NS BID [facility] Stop: 08/26/18 21:59 Last Admin: 08/24/18 09:33 Dose: 1 applic Polyethylene Glycol (Miralax (For Daily Use) -) 17 gm PO DAILY [facility] Last Admin: 08/24/18 09:35 Dose: 17 grams Tamsulosin HCl (Flomax -) 0.4 mg PO DAILY@0830 [facility] Last Admin: 08/24/18 08:49 Dose: 0.4 mg Torsemide (Demadex -) 20 mg PO DAILY [facility] Last Admin: 08/24/18 09:35 Dose: 20 mg Warfarin Sodium (Coumadin -) 2 mg PO DAILY@1800 [facility] Last Admin: 08/23/18 17:15 Dose: 2 mg - Objective Vital Signs: Vital Signs Temperature 98.2 F 08/24/18 14:00 Pulse Rate 64 08/24/18 14:00 Respiratory Rate 19 08/24/18 14:00 Blood Pressure 134/53 L 08/24/18 14:00 O2 Sat by Pulse Oximetry (%) 96 08/24/18 10:53 Constitutional: Yes: Mild Distress Eyes: Yes: WNL HENT: Yes: WNL Neck: Yes: WNL Cardiovascular: Yes: Pulse Irregular Respiratory: Yes: WNL Gastrointestinal: Yes: Soft Genitourinary: Yes: WNL Musculoskeletal: Yes: WNL Extremities: Yes: WNL Edema: No Peripheral Pulses WNL: Yes Integumentary: Yes: WNL Wound/Incision: Yes: Clean/Dry Neurological: Yes: WNL ...Motor Strength: WNL Psychiatric: Yes: WNL Labs: CBC, BMP 08/24/18 05:15 08/24/18 05:15 INR, PTT INR 2.48 (0.83-1.09) H 08/24/18 05:15 Problem List - Problems (1) Acute mesenteric ischemia Code(s): K55.059 - ACUTE ISCHEMIA OF INTESTINE, PART AND EXTENT UNSPECIFIED (2) Abdominal pain Code(s): R10.9 - UNSPECIFIED ABDOMINAL PAIN Qualifiers: Abdominal location: generalized Qualified Code(s): R10.84 - Generalized abdominal pain (3) Afib Code(s): I48.91 - UNSPECIFIED ATRIAL FIBRILLATION (4) Anemia Code(s): D64.9 - ANEMIA, UNSPECIFIED (5) Asymptomatic myocardial ischemia Code(s): I25.6 - SILENT MYOCARDIAL ISCHEMIA (6) Diabetes mellitus, insulin dependent (IDDM), uncontrolled Code(s): E10.65 - TYPE 1 DIABETES MELLITUS WITH HYPERGLYCEMIA Assessment/Plan HEPARIN IV FOR MESENTERIC ISCHEMIA CAN NOT HAVE CT ANGIO DUE TO CRI SYMPTOMS IMPROVING SURGERY AND ICU FOLLOW UP PAIN CONTROL TOLERATING MEALS OOB TO CHAIR
--- NOTE | 2018-08-24 16:12 | DS ---
Physical Examination Vital Signs: Vital Signs Temperature 98.2 F 08/24/18 14:00 Pulse Rate 64 08/24/18 14:00 Respiratory Rate 19 08/24/18 14:00 Blood Pressure 134/53 L 08/24/18 14:00 O2 Sat by Pulse Oximetry (%) 96 08/24/18 10:53 Findings/Remarks: FEELS GOOD, 3 BM NO BLOOD Constitutional: Yes: No Distress Eyes: Yes: WNL HENT: Yes: WNL Neck: Yes: WNL Cardiovascular: Yes: Pulse Irregular Respiratory: Yes: WNL Gastrointestinal: Yes: Soft Renal/: Yes: WNL Musculoskeletal: Yes: WNL Extremities: Yes: WNL Edema: No Peripheral Pulses WNL: Yes Integumentary: Yes: WNL Wound/Incision: Yes: Clean/Dry Neurological: Yes: WNL ...Motor Strength: WNL Psychiatric: Yes: WNL Labs: CBC, BMP 08/24/18 05:15 08/24/18 05:15 Discharge Summary Reason For Visit: ABDOMINAL PAIN Current Active Problems Abdominal pain (Acute) Acute kidney failure (Acute) Acute mesenteric ischemia (Acute) CKD (chronic kidney disease) (Acute) Gastric cancer (Acute) Lactic acid acidosis (Acute) Procedures: Principal: CT Hospital Course: MESENTERICH ISCHEMIA GIVEN IV HEPARIN, WORKUP OUTPATIENT FOR STRESS TEST AND INR CHECKS Condition: Improved - Instructions Diet, Activity, Other Instructions: SEE DR BHASKAR MARCELO FOR INR CHECK AND FOLLOW UP SEE DR HO FOR CARDIOLOGY FOLLOW UP OUTPATIENT STRESS TEST Referrals: Idris Borges MD [Primary Care Provider] - Disposition: VNS/HOME HEALTH CARE - Home Medications Comprehensive Discharge Medication List: Ambulatory Orders Lantus (10mL VIAL) - 8 units SQ HS 11/03/16 Nitroglycerin Patch [Nitro-Dur Patch -] 0.4 mg TD DAILY 11/03/16 Simvastatin [Zocor -] 20 mg PO HS 11/03/16 Insulin Aspart [Novolog] 0 unit SQ TID 08/21/18 Tamsulosin HCl 0.4 mg PO DAILY 08/21/18 Torsemide 20 mg PO DAILY 08/21/18 Warfarin Na [Coumadin -] 2 mg PO DAILY 08/21/18 Carvedilol [Coreg -] 25 mg PO BID #60 tablet 08/24/18 Clonidine Patch [Catapres Tts Patch -] 0.2 mg TD Q7D@1000 #4 patch.tdwk Mupirocin Ointment [Bactroban Ointment (For Decolonization) -] 1 applic NS BID applic 08/24/18 Polyethylene Glycol 3350 [Miralax 119 gm Btl -] 17 gm PO DAILY bottle 08/24/18 Torsemide [Demadex -] 20 mg PO DAILY #30 tablet 08/24/18
[2018-08-24 18:02] VITALS: BP 152/72; PULSE 70; TEMP 98.1
[2018-08-24] MEDS: WARFARIN NA 2 MG TABLET (UD) PO SCH (18:46)
[2018-08-25] MEDS ORDERED: cloNIDine-TTS 0.2 MG/24 HOURS PATCH.TDWK TD SCH (10:00)
== END 2018-08-24 19:12 | disposition home or self-care (01) | DRG 394 ==
LOC: JER 03:36 → JERBED 13:00 → JICU 17:32
PROVIDERS: ADMIT Family Medicine; ATTEND Family Medicine
DX: K55.059 Acute (reversible) ischemia of intestine, part and extent unspecified (principal); N17.9 Acute kidney failure, unspecified; I13.0 Hypertensive heart and chronic kidney disease with heart failure and stage 1 through stage 4 chronic kidney disease, or unspecified chronic kidney disease; E87.2 Acidosis; I50.32 Chronic diastolic (congestive) heart failure; C16.9 Malignant neoplasm of stomach, unspecified; K55.9 Vascular disorder of intestine, unspecified; E78.5 Hyperlipidemia, unspecified; Z85.05 Personal history of malignant neoplasm of liver; I25.10 Atherosclerotic heart disease of native coronary artery without angina pectoris; Z79.01 Long term (current) use of anticoagulants; Z86.73 Personal history of transient ischemic attack (TIA), and cerebral infarction without residual deficits; I44.4 Left anterior fascicular block; Z79.4 Long term (current) use of insulin; Z95.1 Presence of aortocoronary bypass graft; E11.22 Type 2 diabetes mellitus with diabetic chronic kidney disease; I12.9 Hypertensive chronic kidney disease with stage 1 through stage 4 chronic kidney disease, or unspecified chronic kidney disease; N18.9 Chronic kidney disease, unspecified; I48.0 Paroxysmal atrial fibrillation; I34.0 Nonrheumatic mitral (valve) insufficiency; G47.33 Obstructive sleep apnea (adult) (pediatric); E11.65 Type 2 diabetes mellitus with hyperglycemia; K59.00 Constipation, unspecified; E11.43 Type 2 diabetes mellitus with diabetic autonomic (poly)neuropathy; K31.84 Gastroparesis; E86.0 Dehydration
CPT/HCPCS: 36415; 71045-TC-FY; 74176-TC; 76775-TC; 80053; 81003; 81015; 82150; 82550; 82553; 82962; 83605; 83690; 83735; 84100; 84484; 85025; 85610; 85730; 86850; 86900; 86901; 87040; 93005; 93010; 93306-TC; 94761; 97116-GP; 97161-GP; 99284-25; J0735; J1644; J7030

== ENCOUNTER 2018-09-04 10:26 | Inpatient (IN) | payer OTHER ==
--- NOTE | 2018-09-04 11:40 | PDOC ---
History of Present Illness - General History Source: Patient Exam Limitations: No Limitations - History of Present Illness Initial Comments: 09/04/18 12:50 The patient is an 83-year-old male, with a past medical history of CAD, CABG x4 stents, CHF, afib on Coumadin, IDDM, HTN, HLD, CVA, Liver/abdominal chemo rx, who presents to the ED with CHF exacerbation. Patient has noted that his lower extremities have been retaining fluid for the past week and appear erythematous , RT worse than LT. Redness began yesterday. Patients reports a recent increase in his torsemide medication to 100 mg 2 days ago. He also endorses abdominal distention and shortness of breath. The patient denies any fever, chills, nausea, vomiting, diarrhea, or abdominal pain. Denies any chest pain or palpitations. Allergies: NKDA Social History: None reported. Surgical History: Liver resection, CABG, cholecystectomy. PCP: Dr. Borges Geography Department Chair: Dr. Sanchez <Wendy Faust - Last Filed: 09/04/18 12:50> <Ar Beatty - Last Filed: 09/04/18 15:22> - General Chief Complaint: Edema Stated Complaint: CHF Time Seen by Provider: 09/04/18 11:15 Past History <Wendy Faust - Last Filed: 09/04/18 12:50> - Past Medical History Anemia: No Asthma: No Cancer: Yes (LIVER, ABDOMEN Chemo Rx) Cardiac Disorders: Yes (CAD; CAGG x 4; A-FIB) CVA: Yes COPD: No CHF: No Dementia: No Diabetes: Yes (IDDM) GI Disorders: No Disorders: (urinary retention) HTN: Yes Hypercholesterolemia: Yes Liver Disease: Yes (LIVER CA) Seizures: No Thyroid Disease: No - Surgical History Abdominal Surgery: Yes (Liver resection) Appendectomy: No Cardiac Surgery: Yes (CABG) Cholecystectomy: Yes Lung Surgery: No Neurologic Surgery: No Orthopedic Surgery: No - Suicide/Smoking/Psychosocial Hx Smoking History: Never smoked Have you smoked in the past 12 months: No Information on smoking cessation initiated: No Hx Alcohol Use: No Drug/Substance Use Hx: No Substance Use Type: None Hx Substance Use Treatment: No <Ar Beatty - Last Filed: 09/04/18 15:22> - Past Medical History Allergies/Adverse Reactions: Allergies Allergy/AdvReac Type Severity Reaction Status Date / Time No Known Drug Allergies Allergy Verified 09/04/18 10:46 Home Medications: Ambulatory Orders Lantus (10mL VIAL) - 8 units SQ HS 11/03/16 Nitroglycerin Patch [Nitro-Dur Patch -] 0.4 mg TD DAILY 11/03/16 Simvastatin [Zocor -] 20 mg PO HS 11/03/16 Insulin Aspart [Novolog] 0 unit SQ TID 08/21/18 Tamsulosin HCl 0.4 mg PO DAILY 08/21/18 Warfarin Na [Coumadin -] 2 mg PO DAILY 08/21/18 Carvedilol [Coreg -] 25 mg PO BID #60 tablet 08/24/18 Clonidine Patch [Catapres Tts Patch -] 0.2 mg TD Q7D@1000 #4 patch.tdwk Mupirocin Ointment [Bactroban Ointment (For Decolonization) -] 1 applic NS BID applic 08/24/18 Polyethylene Glycol 3350 [Miralax 119 gm Btl -] 17 gm PO DAILY bottle 08/24/18 Torsemide [Demadex -] 100 mg PO DAILY 09/04/18 Review of Systems - Review of Systems Able to Perform ROS?: Yes Comments:: 09/04/18 12:53 CONSTITUTIONAL: No fever, no chills, no fatigue EYES: No visual changes ENT: No ear pain, no sore throat CARDIOVASCULAR: No chest pain, no palpitations RESPIRATORY: (+)SOB. No cough. GI: (+)Abdominal distention. No abdominal pain, no nausea, no vomiting, no constipation, no diarrhea GENITOURINARY: No dysuria, no frequency, no hematuria MUSKULOSKELETAL: No backpain, no joint pain, no myalgias EXTREMITIES: (+)B/L LE swelling and redness. SKIN: No pallor. NEURO: No headache <Wendy Faust - Last Filed: 09/04/18 12:50> *Physical Exam - Vital Signs Last Vital Signs Temp Pulse Resp BP Pulse Ox 97.8 F 71 18 121/55 L 98 09/04/18 10:44 09/04/18 10:44 09/04/18 10:44 09/04/18 10:44 09/04/18 10:44 <Wendy Faust - Last Filed: 09/04/18 12:50> - Vital Signs Last Vital Signs Temp Pulse Resp BP Pulse Ox 97.8 F 71 18 121/55 L 98 09/04/18 10:44 09/04/18 10:44 09/04/18 10:44 09/04/18 10:44 09/04/18 10:44 <Ar Beatty - Last Filed: 09/04/18 15:22> Moderate Sedation - Procedure Monitoring Vital Signs: Procedure Monitoring Vital Signs Temperature 97.8 F 09/04/18 10:44 Pulse Rate 71 09/04/18 10:44 Respiratory Rate 18 09/04/18 10:44 Blood Pressure 121/55 L 09/04/18 10:44 O2 Sat by Pulse Oximetry (%) 98 09/04/18 10:44 <Wendy Faust - Last Filed: 09/04/18 12:50> - Procedure Monitoring Vital Signs: Procedure Monitoring Vital Signs Temperature 97.8 F 09/04/18 10:44 Pulse Rate 71 09/04/18 10:44 Respiratory Rate 18 09/04/18 10:44 Blood Pressure 121/55 L 09/04/18 10:44 O2 Sat by Pulse Oximetry (%) 98 09/04/18 10:44 <Ar Beatty - Last Filed: 09/04/18 15:22> ED Treatment Course - LABORATORY CBC & Chemistry Diagram: 09/04/18 12:20 09/04/18 12:20 <Wendy Faust - Last Filed: 09/04/18 12:50> - LABORATORY CBC & Chemistry Diagram: 09/04/18 12:20 09/04/18 12:20 <Ar Beatty - Last Filed: 09/04/18 15:22> Medical Decision Making - Medical Decision Making 09/04/18 11:53 Dr. Borges was paged and notified via phone service. 09/04/18 11:55 Dr. Laguna (covering for Dr. Sanchez) was paged and notified via phone service. <Wendy Faust - Last Filed: 09/04/18 12:50> *DC/Admit/Observation/Transfer - Attestations Scribe Attestion: 09/04/18 12:54 Documentation prepared by Wendy Faust, acting as medical lead for Ar Beatty MD. <Wendy Faust - Last Filed: 09/04/18 12:50> - Discharge Dispostion Decision to Admit order: Yes <Ar Beatty - Last Filed: 09/04/18 15:22> Diagnosis at time of Disposition: Cellulitis and abscess of right leg Acute CHF (congestive heart failure) Qualifiers: Heart failure type: unspecified Qualified Code(s): I50.9 - Heart failure, unspecified CKD (chronic kidney disease) Qualifiers: Chronic kidney disease stage: unspecified stage Qualified Code(s): N18.9 - Chronic kidney disease, unspecified - Discharge Dispostion Condition at time of disposition: Fair - Referrals Referrals: Idris Borges MD [Primary Care Provider] - - Patient Instructions - Post Discharge Activity
[2018-09-04] MEDS ORDERED: FUROSEMIDE 100 MG/10 ML INJECTABLE VIAL IVPB ONE (11:51)
[2018-09-04] MEDS ORDERED: FUROSEMIDE 40 MG/4 ML INJECTABLE VIAL ONE (12:03)
[2018-09-04 12:40] LABS: BASO % 0.5 % (0-2.0); EOS % 0.7 % (0-4.5); HEMATOCRIT 29.8 % (35.4-49); HEMOGLOBIN 10.1 GM/dL (11.7-16.9); LYMPH % 10.9 % (8-40); MCH 32.9 pg (25.7-33.7); MCHC 33.9 g/dl (32.0-35.9); MEAN PLT VOLUME 10.5 fl (7.5-11.1); MONO % 11.3 % (3.8-10.2); NEUT % 76.6 % (42.8-82.8); PLATELET COUNT 88 K/MM3 (134-434); RBC 3.07 M/mm3 (4.00-5.60); RDW 14.4 % (11.9-15.9); WHITE BLOOD COUNT 3.6 K/mm3 (4.0-10.0)
[2018-09-04 12:55] LABS: INR 3.06 (0.83-1.09); PROTHROMBIN TIME (PATIENT) 36.5 SEC (9.7-13.0)
[2018-09-04 13:35] LABS: ALK PHOS 82 U/L (45-117); ANION GAP 7 MMOL/L (8-16); BILIRUBIN,TOTAL 0.9 mg/dL (0.2-1); BLOOD UREA NITROGEN 70 mg/dL (7-18); CALCIUM 8.3 mg/dL (8.5-10.1); CHLORIDE 92 mmol/L (98-107); CO2 29 mmol/L (21-32); CREATININE 2.4 mg/dL (0.55-1.3); POTASSIUM 5.7 mmol/L (3.5-5.1); SGOT/AST 28 U/L (15-37); SGPT/ALT 24 U/L (13-61); SODIUM 128 mmol/L (136-145)
[2018-09-04 13:36] LABS: N-TERMINAL BNP 3351.2 pg/ml (5-450)
[2018-09-04 14:03] LABS: GLUCOSE,RANDOM 471 mg/dL (74-106)
[2018-09-04] MEDS ORDERED: INSULIN REGULAR HUMAN 100 UNITS/ML *VIAL SQ ONE (14:41)
[2018-09-04] MEDS ORDERED: ceFAZolin 2 GRAM PREMIX BAG IVPB ONE (15:15)
[2018-09-04] MEDS ORDERED: INSULIN REGULAR HUMAN 100 UNITS/ML *VIAL ONE (15:25)
[2018-09-04] MEDS ORDERED: CEFAZOLIN 1 GM/D5W 1 GM/50 ML BAG ONE (15:32)
[2018-09-04] MEDS ORDERED: LIDOCAINE HCL 2% JELLY 10 ML CARTRIDGE ONE (15:42)
--- NOTE | 2018-09-04 15:51 | CON.CARD ---
Cardiology Consult (text) - Consultation Consultation Note: Chief Complaint: sob, le edema History of Present Illness: 83M h/o afib on coumadin, CAD p/w sob, le edema. Past 2 weeks has increased le edema and bell. Torsemide dose has been increased but sxs persisted so came to ER. No cp palps dizzy loc pnd orthopnea. Sees dr guerrero for cardio. - Past Medical History Cardio/Vascular: Yes: AFIB, CAD, CHF, HTN, Hyperlipdemia Gastrointestinal: Yes: Cancer (primary liver) Hepatobiliary: Yes: Other (primary liver cancer s/p resection Renal/: Yes: Renal Inusuff Endocrine: Yes: Diabetes Mellitus (insulin dependent) - Past Surgical History Past Surgical History: Yes: CABG (partial liver resection) - Alcohol/Substance Use Hx Alcohol Use: No - Smoking History Smoking history: Never smoked Have you smoked in the past 12 months: No Home Medications - Allergies Allergies/Adverse Reactions: Allergies Allergy/AdvReac Type Severity Reaction Status Date / Time No Known Drug Allergies Allergy Verified 09/04/18 10:46 - Home Medications Home Medications Medication Instructions Recorded Lantus (10mL VIAL) - 8 units SQ HS 11/03/16 Nitroglycerin Patch [Nitro-Dur 0.4 mg TD DAILY 11/03/16 Patch -] Simvastatin [Zocor -] 20 mg PO HS 11/03/16 Insulin Aspart [Novolog] 0 unit SQ TID 08/21/18 Tamsulosin HCl 0.4 mg PO DAILY 08/21/18 Warfarin Na [Coumadin -] 2 mg PO DAILY 08/21/18 Carvedilol [Coreg -] 25 mg PO BID #60 tablet 08/24/18 Clonidine Patch [Catapres Tts 0.2 mg TD Q7D@1000 #4 patch.tdwk 08/24/18 Patch -] Mupirocin Ointment [Bactroban 1 applic NS BID applic 08/24/18 Ointment (For Decolonization) -] Polyethylene Glycol 3350 [Miralax 17 gm PO DAILY bottle 08/24/18 119 gm Btl -] Torsemide [Demadex -] 100 mg PO DAILY 09/04/18 Family Disease History - Family Disease History Family History: Unremarkable Review of Systems - Review of Systems per hpi; no nvd fever gib hematuria dysuria wt loss abd pain vision changes Vital Signs: Vital Signs Period Temp Pulse Resp BP Sys/Gregory Pulse Ox Last 24 Hr 97.8 F 71-71 18-20 121-141/54-55 96-98 Constitutional: Yes: Calm, nad Eyes: Yes: Conjunctiva Clear, EOM Intact HENT: Yes: Atraumatic, Normocephalic Neck: Yes: Supple, Trachea Midline Respiratory: Yes: Regular, CTA Bilaterally Gastrointestinal: Yes: Normal Bowel Sounds, Soft. No: Tenderness Cardiovascular: Yes: Pulse Irregular JVD: yes Carotid Bruit: No PMI: Non-Displaced Heart Sounds: Yes: S1, S2 Musculoskeletal: No: Back Pain Extremities: No: Cold Edema: 2+ le edema bl with erythema bl Peripheral Pulses WNL: Yes Peripheral Pulses: 2+ Left Doralis Pedis, 2+ Right Dorsalis Pedis Integumentary: No: Jaundice Neurological: Yes: Alert, Oriented Psychiatric: No: Agitated Laboratory Last Values WBC 3.6 K/mm3 (4.0-10.0) L 09/04/18 12:20 RBC 3.07 M/mm3 (4.00-5.60) L 09/04/18 12:20 Hgb 10.1 GM/dL (11.7-16.9) L 09/04/18 12:20 Hct 29.8 % (35.4-49) L 09/04/18 12:20 MCV 97.0 fl (80-96) H 09/04/18 12:20 MCH 32.9 pg (25.7-33.7) 09/04/18 12:20 MCHC 33.9 g/dl (32.0-35.9) 09/04/18 12:20 RDW 14.4 % (11.9-15.9) 09/04/18 12:20 Plt Count 88 K/MM3 (134-434) L 09/04/18 12:20 MPV 10.5 fl (7.5-11.1) 09/04/18 12:20 Absolute Neuts (auto) 2.8 K/mm3 (1.5-8.0) 09/04/18 12:20 Neutrophils % 76.6 % (42.8-82.8) 09/04/18 12:20 Lymphocytes % 10.9 % (8-40) D 09/04/18 12:20 Monocytes % 11.3 % (3.8-10.2) H 09/04/18 12:20 Eosinophils % 0.7 % (0-4.5) 09/04/18 12:20 Basophils % 0.5 % (0-2.0) 09/04/18 12:20 Nucleated RBC % 0 % (0-0) 09/04/18 12:20 PT with INR 36.50 SEC (9.7-13.0) H 09/04/18 12:20 INR 3.06 (0.83-1.09) H 09/04/18 12:20 Sodium 128 mmol/L (136-145) L 09/04/18 12:20 Potassium 5.7 mmol/L (3.5-5.1) H 09/04/18 12:20 Chloride 92 mmol/L (98-107) L 09/04/18 12:20 Carbon Dioxide 29 mmol/L (21-32) 09/04/18 12:20 Anion Gap 7 MMOL/L (8-16) L 09/04/18 12:20 BUN 70 mg/dL (7-18) H 09/04/18 12:20 Creatinine 2.4 mg/dL (0.55-1.3) H 09/04/18 12:20 Creat Clearance w eGFR 25.98 (>60) 09/04/18 12:20 Random Glucose 471 mg/dL (74-106) H* 09/04/18 12:20 Calcium 8.3 mg/dL (8.5-10.1) L 09/04/18 12:20 Total Bilirubin 0.9 mg/dL (0.2-1) 09/04/18 12:20 AST 28 U/L (15-37) 09/04/18 12:20 ALT 24 U/L (13-61) 09/04/18 12:20 Alkaline Phosphatase 82 U/L (45-117) 09/04/18 12:20 Creatine Kinase 84 U/L (26-308) 09/04/18 12:20 Troponin I 0.11 ng/ml (0.00-0.05) H 09/04/18 12:20 B-Natriuretic Peptide 3351.2 pg/ml (5-450) H 09/04/18 12:20 Total Protein 6.0 g/dl (6.4-8.2) L 09/04/18 12:20 Albumin 3.0 g/dl (3.4-5.0) L 09/04/18 12:20 cxr: mild chf MIBI 07/05 (pers): no STs; small area apical isch and basal inferolateral wall; mild global LV hypo, EF 46% mibi 08/2018: lvef 66, no ischemia ecg: afib, rate ok, no ischemic changes Echo 10/07: 1. The left ventricular size is normal. 2. Overall left ventricular systolic function is normal with, an EF between 60 - 65 %. 3. LA pressure is uncertain. 4. No regional wall motion abnormalities were noted (basal inferolateral wall may be mildly hypokinetic). 5. The right ventricle is normal in size and function. 6. Left atrium is severely dilated by volume. 7. There is mild aortic regurgitation. 8. The mitral valve is normal in appearance, with no prolapse, flail leaflet, or tethered motion noted. 9. 2 separate MR jets are present: one directed anteriorly, the other central. The anterior jet hugs the antreior LA wall/interatrial septum and is not seen to wrap around the posterior LA wall. The visual appearance is of moderate mitral regurgitation, however the eccentric nature of the anterior jet may lead to underestimation of MR severity on color jet flow analysis. The peak mitral inflow velocity (0.7 m/sec) makes severe mitral regurgitation less likely. There is no systolic flow reversal present in the pulmonary vein. PISA hemisphere could not be measured. Estimated regurgitant volume by volumetric measurements yields and estimate of 35 cc. 10. Mild tricuspid regurgitation present. 11. Unable to estimate RVSP due to inadequate TR jet spectral doppler profile. echo 07/2018: nl lv/rv, lae, mild mr/tr/ar, nl rvsp a/p: 82 yo with h/o CAD s/p CABG, afib on coumadin CVA, hypertension, hyperlipidemia, IDDM, liver cancer(Chemo, 40% liver removed in 2008), who p/w chf. acute diastolic chf: -on torsemide 100 at home w/o resolution of vol overload -baseline wt mid 160lbs, here in 170s now with le edema and bell -got lasix 100 mg iv now in er, monitor am labs -cont lasix iv, daily wts, daily chem7 -recent echo and mibi unremarkable pAFib: - Rate controlled on coreg - on warfarin per inr CAD, S/P CABG '05: GAN TO LAD, SVG SEQUENTIAL TO DIAG-->OM; SVG TO RPDA: - on arb, statin, at home, continue -recent mibi and echo unremarkable -no signs acs here. trop borderline value with nl ck, similar to prior baseline trops, trend for now HTN: - stable, cont home meds ckd: -baseline cr 2.2, monitor with diuresis
[2018-09-04 16:04] LABS: URINE APPEARANCE CLEAR; URINE BILIRUBIN NEGATIVE (<2.0 mg/dL); URINE COLOR STRAW; URINE GLUCOSE (UA) 3+ (NEGATIVE); URINE KETONE NEGATIVE (NEGATIVE); URINE LEUK ESTERASE NEGATIVE (NEGATIVE); URINE NITRITE NEGATIVE (NEGATIVE); URINE PROTEIN NEGATIVE (NEGATIVE); URINE UROBILINOGEN NEGATIVE mg/dL (0.2-1.0)
[2018-09-04] MEDS ORDERED: LIDOCAINE HCL 2% JELLY 10 ML CARTRIDGE UR ONE (16:10)
[2018-09-04 20:19] LABS: ANION GAP 7 MMOL/L (8-16); BLOOD UREA NITROGEN 70 mg/dL (7-18); CALCIUM 8.2 mg/dL (8.5-10.1); CHLORIDE 97 mmol/L (98-107); CO2 31 mmol/L (21-32); CREATININE 2.4 mg/dL (0.55-1.3); SODIUM 135 mmol/L (136-145)
[2018-09-04 20:30] LABS: GLUCOSE,RANDOM 331 mg/dL (74-106)
[2018-09-05] MEDS ORDERED: FUROSEMIDE 40 MG/4 ML INJECTABLE VIAL ONE ×2 (06:17→13:52)
[2018-09-05] MEDS: FUROSEMIDE 40 MG/4 ML INJECTABLE VIAL IVPUSH SCH ×2 (06:29→14:06)
[2018-09-05 08:38] LABS: ANION GAP 8 MMOL/L (8-16); BLOOD UREA NITROGEN 67 mg/dL (7-18); CALCIUM 8.9 mg/dL (8.5-10.1); CHLORIDE 99 mmol/L (98-107); CO2 32 mmol/L (21-32); CREATININE 2.2 mg/dL (0.55-1.3); GLUCOSE,RANDOM 194 mg/dL (74-106); POTASSIUM 4.1 mmol/L (3.5-5.1); SODIUM 138 mmol/L (136-145)
[2018-09-05] MEDS ORDERED: TAMSULOSIN HCL 0.4 MG CAP ONE (08:39)
[2018-09-05] MEDS: TAMSULOSIN HCL 0.4 MG CAP PO SCH (08:40)
[2018-09-05 09:35] LABS: INR 3.43 (0.83-1.09)
[2018-09-05 09:36] LABS: BASO % 0.4 % (0-2.0); EOS % 1.9 % (0-4.5); HEMATOCRIT 29.6 % (35.4-49); HEMOGLOBIN 10.1 GM/dL (11.7-16.9); LYMPH % 18.3 % (8-40); MCH 33.3 pg (25.7-33.7); MCHC 34.3 g/dl (32.0-35.9); MEAN CELL VOLUME 97.3 fl (80-96); MEAN PLT VOLUME 9.9 fl (7.5-11.1); MONO % 14.3 % (3.8-10.2); NEUT % 65.1 % (42.8-82.8); PLATELET COUNT 82 K/MM3 (134-434); RBC 3.04 M/mm3 (4.00-5.60); RDW 14.1 % (11.9-15.9)
[2018-09-05 09:56] LABS: ALBUMIN 3.1 g/dl (3.4-5.0); ALK PHOS 78 U/L (45-117); BILIRUBIN,TOTAL 0.8 mg/dL (0.2-1); MAGNESIUM 2.2 mg/dL (1.8-2.4); SGOT/AST 15 U/L (15-37); SGPT/ALT 19 U/L (13-61); TOT PROT 5.5 g/dl (6.4-8.2)
[2018-09-05] MEDS ORDERED: CEFAZOLIN 1 GM/D5W 1 GM/50 ML BAG IVPB ONE (10:00)
[2018-09-05] MEDS ORDERED: CEFAZOLIN 1 GM in DEXTROSE 5%-WATER - 50 ML IVPB SCH ×5 (10:00→18:01)
[2018-09-05] MEDS ORDERED: CARVEDILOL 12.5 MG TABLET (FP) ONE (10:29)
[2018-09-05] MEDS ORDERED: CEFAZOLIN 1 GM/D5W 1 GM/50 ML BAG ONE (10:30)
[2018-09-05] MEDS: CARVEDILOL 25 MG TABLET (FP) PO SCH ×2 (10:31→22:26)
[2018-09-05] MEDS: POLYETHYLENE GLYCOL 3350 119 GM BTL PO SCH (10:31)
--- NOTE | 2018-09-05 11:56 | HP ---
Admitting History and Physical - Primary Care Physician PCP: Idris Borges - Admission Chief Complaint: came in for leg sweling and erythema for 3 days History of Present Illness: The patient is an 83-year-old male, with a past medical history of CAD, CABG x4 stents, CHF, afib on Coumadin, IDDM, HTN, HLD, CVA, Liver/abdominal chemo rx, who presents to the ED with CHF exacerbation. Patient has noted that his lower extremities have been retaining fluid for the past week and appear erythematous , RT worse than LT. Redness began yesterday. Patients reports a recent increase in his torsemide medication to 100 mg 2 days ago. He also endorses abdominal distention and shortness of breath. in ER given lasix 80mg ,ancef iv History Source: Patient, Medical Record - Past Medical History Cardiovascular: Yes: AFIB, CAD, CHF, HTN, Hyperlipdemia Gastrointestinal: Yes: Cancer (primary liver) Hepatobiliary: Yes: Other (primary liver cancer s/p resection and now recurr in lymph nodes on chemo (nexavar)) Renal/: Yes: Renal Inusuff Endocrine: Yes: Diabetes Mellitus (insulin dependent) - Past Surgical History Past Surgical History: Yes: CABG (partial liver resection) - Smoking History Smoking history: Never smoked Have you smoked in the past 12 months: No - Alcohol/Substance Use Hx Alcohol Use: No - Social History ADL: Independent History of Recent Travel: No Home Medications - Allergies Allergies/Adverse Reactions: Allergies Allergy/AdvReac Type Severity Reaction Status Date / Time No Known Drug Allergies Allergy Verified 09/04/18 10:46 - Home Medications Home Medications: Ambulatory Orders Lantus (10mL VIAL) - 8 units SQ HS 11/03/16 Nitroglycerin Patch [Nitro-Dur Patch -] 0.4 mg TD DAILY 11/03/16 Simvastatin [Zocor -] 20 mg PO HS 11/03/16 Insulin Aspart [Novolog] 0 unit SQ TID 08/21/18 Tamsulosin HCl 0.4 mg PO DAILY 08/21/18 Warfarin Na [Coumadin -] 2 mg PO DAILY 08/21/18 Carvedilol [Coreg -] 25 mg PO BID #60 tablet 08/24/18 Clonidine Patch [Catapres Tts Patch -] 0.2 mg TD Q7D@1000 #4 patch.tdwk Mupirocin Ointment [Bactroban Ointment (For Decolonization) -] 1 applic NS BID applic 08/24/18 Polyethylene Glycol 3350 [Miralax 119 gm Btl -] 17 gm PO DAILY bottle 08/24/18 Torsemide [Demadex -] 100 mg PO DAILY 09/04/18 Review of Systems - Review of Systems Musculoskeletal: reports: Other (leg swelling) Physical Examination Vital Signs: Vital Signs Temperature 98.7 F 09/05/18 11:19 Pulse Rate 79 09/05/18 11:19 Respiratory Rate 20 09/05/18 11:19 Blood Pressure 154/70 09/05/18 11:19 O2 Sat by Pulse Oximetry (%) 98 09/05/18 11:19 Constitutional: Yes: Calm Cardiovascular: Yes: Regular Rate and Rhythm, S1, S2 Respiratory: Yes: Diminished Gastrointestinal: Yes: Normal Bowel Sounds, Soft Extremities: Yes: Erythema, Other (right leg erythematous,edema) Edema: Yes Labs: CBC, BMP 09/05/18 07:01 09/05/18 07:01 Imaging - Results Chest X-ray: Report Reviewed (cardiomegaly with congestive changes and right pleural effusion) Problem List - Problems (1) Acute CHF (congestive heart failure) Assessment/Plan: lasix bid check venous doppler r/o dvt daily weights cardiology on baord Code(s): I50.9 - HEART FAILURE, UNSPECIFIED Qualifiers: Heart failure type: unspecified Qualified Code(s): I50.9 - Heart failure, unspecified (2) Afib Assessment/Plan: rate control coumadin on hold given inc INR Code(s): I48.91 - UNSPECIFIED ATRIAL FIBRILLATION (3) Cellulitis Assessment/Plan: right leg ancef ID eval Code(s): L03.90 - CELLULITIS, UNSPECIFIED (4) BPH (benign prostatic hyperplasia) Assessment/Plan: flomax Code(s): N40.0 - BENIGN PROSTATIC HYPERPLASIA WITHOUT LOWER URINRY TRACT SYMP (5) Diabetes Assessment/Plan: sliding scale [id number] insulin Code(s): E11.9 - TYPE 2 DIABETES MELLITUS WITHOUT COMPLICATIONS Qualifiers: Diabetes mellitus type: type 2
--- NOTE | 2018-09-05 12:02 | CONSULT ---
Consult - text type - Consultation Consultation Note: Renal Consult for CKD with Fluid overload This is a 83 year old gentleman with hx of Afib on Coumadin, hypertension, hyperlipidemia, IDDM, Liver cancer s/p partial resection, CAD s/p CABG, CKD ( baseline Cr 1.7-2) who presented worsening LE edema and SOB and admitted for CHF exacerbation/fluid overload. Pt reports that he has been complaint with all his medications including his diuretics. Denies extra salt intake. Reports urine has been coming our slower then usual. No flank pain or dysuria. No N/v/ D. No chest pain, fever, chills. s/p IV Lasix, making urine via harley now. Reports feeling a little better. PMhx: as above Allergies: NKDA Family Hx: NC Social Hx: No T/A/D ROS: as per HPI, all other pertinent ros negative Home Medications Medication Instructions Recorded Lantus (10mL VIAL) - 8 units SQ HS 11/03/16 Nitroglycerin Patch [Nitro-Dur 0.4 mg TD DAILY 11/03/16 Patch -] Simvastatin [Zocor -] 20 mg PO HS 11/03/16 Insulin Aspart [Novolog] 0 unit SQ TID 08/21/18 Tamsulosin HCl 0.4 mg PO DAILY 08/21/18 Warfarin Na [Coumadin -] 2 mg PO DAILY 08/21/18 Carvedilol [Coreg -] 25 mg PO BID #60 tablet 08/24/18 Clonidine Patch [Catapres Tts 0.2 mg TD Q7D@1000 #4 patch.tdwk 08/24/18 Patch -] Mupirocin Ointment [Bactroban 1 applic NS BID applic 08/24/18 Ointment (For Decolonization) -] Polyethylene Glycol 3350 [Miralax 17 gm PO DAILY bottle 08/24/18 119 gm Btl -] Torsemide [Demadex -] 100 mg PO DAILY 09/04/18 Vital Signs Temperature 98.7 F 09/05/18 11:19 Pulse Rate 79 09/05/18 11:19 Respiratory Rate 20 09/05/18 11:19 Blood Pressure 154/70 09/05/18 11:19 O2 Sat by Pulse Oximetry (%) 98 09/05/18 11:19 Intake & Output 09/02/18 09/03/18 09/04/1809/05/19 23:59 23:59 23:59 23:59 Intake Total 100 Output Total 2260 1400 Balance -2160 -1400 Weight 77.111 kg NAD on NC O2 RRR, NO M/R Dec BS at lung bases soft NT/ND no bladder distension harley in place with clear yellow urine ++ edema in LE CBC, BMP 09/05/18 07:01 09/05/18 07:01 Current Medications Atorvastatin Calcium (Lipitor -) 10 mg PO HS [facility] Carvedilol (Coreg -) 25 mg PO BID [facility] Last Admin: 09/05/18 10:31 Dose: 25 mg Clonidine HCl (Catapres Tts Patch -) 0.2 mg TD Q7D@1000 RAMU Furosemide (Lasix Injection -) 80 mg IVPUSH BID@0600,1400 [facility] Last Admin: 09/05/18 06:29 Dose: 80 mg Cefazolin Sodium 1 gm/ (Dextrose) 50 mls @ 100 mls/hr IVPB Q8H-IV RAMU Polyethylene Glycol (Miralax (For Daily Use) -) 17 gm PO DAILY [facility] Last Admin: 09/05/18 10:31 Dose: 17 gm Tamsulosin HCl (Flomax -) 0.4 mg PO DAILY@0830 [facility] Last Admin: 09/05/18 08:40 Dose: 0.4 mg Warfarin Sodium (Coumadin -) 2 mg PO DAILY@1800 [facility] 83 year old gentleman with hx of Afib on Coumadin, hypertension, hyperlipidemia , IDDM, Liver cancer s/p partial resection, CAD s/p CABG, CKD (baseline Cr 1.7-2 ) who presented worsening LE edema and SOB and admitted for CHF exacerbation/ fluid overload. #CHF exacerbation/Fluid overload #LE cellulitis #CKD stage 4 #IDDM #Hypertension #Afib on A/C Renal function near baseline continue IV Lasix as per Cardiology Trend renal function and electrolytes maintain harley for now trial of void in 24-48 hours continue flomax Continue Abx as per primary team Thank you Will follow Ramy Contreras DO
--- NOTE | 2018-09-05 12:33 | PN ---
Progress Note (short form) - Note Progress Note: ID CONSULT DICTATED CELLULITIS R LE PANCYTOPENIA AZOTEMIA HX MRSA (2003) AWAIT C/S EMPIRIC CEFAZOLIN
--- NOTE | 2018-09-05 12:47 | PN ---
Progress Note (short form) - Note Progress Note: s: feeling better today. sob and le edema better. no cp or dizzy. o: Vital Signs Period Temp Pulse Resp BP Sys/Gregory Pulse Ox Last 24 Hr 98.0 F-98.7 F 62-79 15-20 112-154/52-70 95-100 Constitutional: Yes: Calm, nad Eyes: Yes: Conjunctiva Clear, HENT: Yes: Atraumatic, Normocephalic Neck: Yes: Supple, Trachea Midline Respiratory: Yes: Regular, CTA Bilaterally Gastrointestinal: Yes: Normal Bowel Sounds, Soft. No: Tenderness Cardiovascular: Yes: Pulse Irregular JVD: yes Heart Sounds: Yes: S1, S2 Extremities: No: Cold Edema: 2+ le edema bl with erythema bl Peripheral Pulses WNL: Yes Peripheral Pulses: 2+ Left Doralis Pedis, 2+ Right Dorsalis Pedis Integumentary: No: Jaundice Neurological: Yes: Alert, Oriented Current Medications Generic Name Dose Route Start Last Admin Trade Name Freq PRN Reason Stop Dose Admin Atorvastatin Calcium 10 mg 09/05/18 22:00 Lipitor - PO HS RAMU Carvedilol 25 mg 09/05/18 10:00 09/05/18 10:31 Coreg - PO 25 mg BID RAMU Administration Clonidine HCl 0.2 mg 09/05/18 10:00 Catapres Tts Patch - TD Q7D@1000 RAMU Furosemide 80 mg 09/05/18 06:00 09/05/18 06:29 Lasix Injection - IVPUSH 80 mg BID@0600,1400 RAMU Administration Cefazolin Sodium 1 gm/ 50 mls @ 100 mls/hr 09/05/18 18:00 Dextrose IVPB Q8H-IV RAMU Insulin Aspart 1 vial 09/05/18 16:30 Novolog Vial Sliding Scale - SQ ACHS RAMU Protocol Polyethylene Glycol 17 gm 09/05/18 10:00 09/05/18 10:31 Miralax (For Daily Use) - PO 17 gm DAILY RAMU Administration Tamsulosin HCl 0.4 mg 09/05/18 08:30 09/05/18 08:40 Flomax - PO 0.4 mg DAILY@0830 RAMU Administration Warfarin Sodium 2 mg 09/05/18 18:00 Coumadin - PO DAILY@1800 RAMU CBC, BMP 09/05/18 07:01 09/05/18 07:01 cxr: mild chf MIBI 07/05 (pers): no STs; small area apical isch and basal inferolateral wall; mild global LV hypo, EF 46% mibi 08/2018: lvef 66, no ischemia ecg: afib, rate ok, no ischemic changes Echo 10/07: 1. The left ventricular size is normal. 2. Overall left ventricular systolic function is normal with, an EF between 60 - 65 %. 3. LA pressure is uncertain. 4. No regional wall motion abnormalities were noted (basal inferolateral wall may be mildly hypokinetic). 5. The right ventricle is normal in size and function. 6. Left atrium is severely dilated by volume. 7. There is mild aortic regurgitation. 8. The mitral valve is normal in appearance, with no prolapse, flail leaflet, or tethered motion noted. 9. 2 separate MR jets are present: one directed anteriorly, the other central. The anterior jet hugs the antreior LA wall/interatrial septum and is not seen to wrap around the posterior LA wall. The visual appearance is of moderate mitral regurgitation, however the eccentric nature of the anterior jet may lead to underestimation of MR severity on color jet flow analysis. The peak mitral inflow velocity (0.7 m/sec) makes severe mitral regurgitation less likely. There is no systolic flow reversal present in the pulmonary vein. PISA hemisphere could not be measured. Estimated regurgitant volume by volumetric measurements yields and estimate of 35 cc. 10. Mild tricuspid regurgitation present. 11. Unable to estimate RVSP due to inadequate TR jet spectral doppler profile. echo 07/2018: nl lv/rv, lae, mild mr/tr/ar, nl rvsp a/p: 82 yo with h/o CAD s/p CABG, afib on coumadin CVA, hypertension, hyperlipidemia, IDDM, liver cancer(Chemo, 40% liver removed in 2008), who p/w chf. acute diastolic chf: -on torsemide 100 at home w/o resolution of vol overload -baseline wt mid 160lbs, here in 170s now with le edema and bell -vol improving, cr better, cont lasix iv, daily wts, daily chem7 -recent echo and mibi unremarkable pAFib: - Rate controlled on coreg - on warfarin per inr CAD, S/P CABG '05: GAN TO LAD, SVG SEQUENTIAL TO DIAG-->OM; SVG TO RPDA: - on arb, statin, at home, continue -recent mibi and echo unremarkable -no signs acs here. trop borderline value with nl ck, similar to prior baseline trops, trend for now HTN: - stable, cont home meds ckd: -baseline cr 2.2, monitor with diuresis le cellulitis: -abx per ID
--- NOTE | 2018-09-05 13:47 | CONS ---
DATE OF CONSULTATION: 09/04/2018 HISTORY OF PRESENT ILLNESS: The patient is an 83-year-old male with a history of diabetes mellitus and a remote history of MRSA bacteremia, being evaluated for cellulitis of the right lower extremity. He was admitted through the emergency room with a three- to four-day history of worsening lower extremity edema and now erythema involving the right lower extremity. He noted increased swelling over the past three or four days and now increased erythema, warmth and tenderness of the right lower extremity. He presented to the emergency room where he was found to have cellulitis of the right lower extremity. He was empirically treated with cefazolin. The patient denies any traumatic injury. No insect or animal bites or scratches. No associated fever or chills. He denies a prior history of serious soft tissue infection requiring hospitalization. In 2003, he had a catheter-related MRSA bacteremia which was treated with a prolonged course of IV vancomycin. 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 PAST MEDICAL HISTORY: Positive for coronary artery disease, congestive heart failure, atrial fibrillation, insulin-dependent diabetes mellitus, hypertension, hyperlipidemia, stroke, liver cancer. PAST SURGICAL HISTORY: Status post partial liver resection and coronary artery bypass graft. ALLERGIES: No known drug allergies. MEDICATIONS: Lantus, nitroglycerin, Zocor, NovoLog, Flomax, Coumadin, Coreg, Catapres, Demadex. SOCIAL HISTORY: Resides in the community. Nonsmoker, nondrinker. REVIEW OF SYSTEMS: Neurologic: No loss of consciousness, seizure activity or focal weakness. Cardiac: Negative for chest pain or palpitations. Respiratory: Positive for mild shortness of breath. Gastrointestinal: Negative for vomiting or diarrhea. Genitourinary: Negative for urinary tract infection. LABORATORY DATA: White count 5.0, 65 neutrophils, 18 lymphocytes, 13 monocytes. Hematocrit 29.6, platelet count 82, BUN 67, creatinine 2.2. Liver enzymes normal. Urinalysis is negative for leukocyte esterase. Blood cultures are pending. PHYSICAL EXAMINATION: General: The patient is awake and alert. He does not look acutely toxic. Vital Signs: Temperature 98.7, pulse 79 and regular, blood pressure 154/70, respiratory rate 20 per minute. HEENT:: Sclerae anicteric. Heart: Heart sounds S1, S2, irregular. Lungs: Clear. Abdomen: Obese, soft and nontender. Healed surgical scars. Extremities: There is bilateral lower extremity edema. There are superficial ulcerations present on the lower extremities bilaterally which do not appear to be infected. There is confluent erythema, warmth and tenderness present over the right pretibial area with well-demarcated borders. No lymphangitis. No fluctuance or crepitance. IMPRESSION: 1. Cellulitis of the right lower extremity. 2. Pancytopenia. 3. Azotemia. 4. History of methicillin-resistant Staphylococcus aureus bacteremia in 2003. PLAN: 1. Await cultures. 2. Will obtain nares screen for MRSA. 3. Empiric cefazolin adjusted for azotemia. 4. Will follow. Thank you for the kind referral. ANTHONY MÁRQUEZ M.D. LATIA/[id number]
--- NOTE | 2018-09-05 15:42 | EKG ---
Test Reason : Blood Pressure : / mmHG Vent. Rate : 061 BPM Atrial Rate : 063 BPM P-R Int : 000 ms QRS Dur : 120 ms QT Int : 430 ms P-R-T Axes : 000 088 240 degrees QTc Int : 432 ms ATRIAL FIBRILLATION POSSIBLE ANTERIOR INFARCT , AGE UNDETERMINED ABNORMAL ECG WHEN COMPARED WITH ECG OF 22-AUG-2018 10:53, VENT. RATE HAS DECREASED BY 42 BPM QRS AXIS SHIFTED RIGHT T WAVE INVERSION NOW EVIDENT IN INFERIOR LEADS NONSPECIFIC T WAVE ABNORMALITY, WORSE IN LATERAL LEADS QT HAS SHORTENED Confirmed by VIC SOUZA, JOYA ([id number]) on 09/05/2018 3:42:15 PM Referred By: Confirmed By:JOYA HO MD
[2018-09-05] MEDS: INSULIN SLIDING SCALE (NOVOLOG) 1 VIAL SQ SCH ×2 (17:27→22:27)
[2018-09-05] MEDS: WARFARIN NA 2 MG TABLET (UD) PO SCH (17:28)
[2018-09-05] MEDS: ATORVASTATIN CA 10 MG TABLET (FP) PO SCH (22:26)
[2018-09-05] MEDS: CEFAZOLIN 1 GM/D5W 1 GM/50 ML BAG IVPB SCH (22:26)
[2018-09-06] MEDS: CEFAZOLIN 1 GM/D5W 1 GM/50 ML BAG IVPB SCH ×3 (03:17→17:11)
[2018-09-06] MEDS: FUROSEMIDE 40 MG/4 ML INJECTABLE VIAL IVPUSH SCH ×2 (06:03→14:36)
[2018-09-06] MEDS: INSULIN SLIDING SCALE (NOVOLOG) 1 VIAL SQ SCH ×2 (06:04→18:08)
[2018-09-06 07:32] LABS: HEMATOCRIT 29.1 % (35.4-49); MCH 33.2 pg (25.7-33.7); MCHC 34.2 g/dl (32.0-35.9); MEAN PLT VOLUME 9.3 fl (7.5-11.1); PLATELET COUNT 79 K/MM3 (134-434); RDW 14.2 % (11.9-15.9)
[2018-09-06 07:50] LABS: INR 2.98 (0.83-1.09); PROTHROMBIN TIME (PATIENT) 35.5 SEC (9.7-13.0)
[2018-09-06 08:20] LABS: ALBUMIN 2.8 g/dl (3.4-5.0); ALK PHOS 79 U/L (45-117); ANION GAP 6 MMOL/L (8-16); BILIRUBIN,TOTAL 0.7 mg/dL (0.2-1); BLOOD UREA NITROGEN 65 mg/dL (7-18); CALCIUM 8.7 mg/dL (8.5-10.1); CHLORIDE 98 mmol/L (98-107); CO2 33 mmol/L (21-32); CREATININE 2.1 mg/dL (0.55-1.3); GLUCOSE,RANDOM 193 mg/dL (74-106); POTASSIUM 4.5 mmol/L (3.5-5.1); SGOT/AST 12 U/L (15-37); SGPT/ALT 14 U/L (13-61); SODIUM 136 mmol/L (136-145); TOT PROT 5.4 g/dl (6.4-8.2)
[2018-09-06] MEDS ORDERED: PT OWN MED DRAWER 7, Y5N ONE (09:27)
[2018-09-06] MEDS: TAMSULOSIN HCL 0.4 MG CAP PO SCH (09:34)
[2018-09-06] MEDS: CARVEDILOL 25 MG TABLET (FP) PO SCH ×2 (09:34→21:28)
[2018-09-06] MEDS: POLYETHYLENE GLYCOL 3350 119 GM BTL PO SCH (09:42)
[2018-09-06] MEDS ORDERED: cloNIDine-TTS 0.2 MG/24 HOURS PATCH.TDWK TD SCH (10:00)
--- NOTE | 2018-09-06 10:43 | PN ---
Progress Note (short form) - Note Progress Note: s: feeling better today. sob and le edema better. no cp or dizzy. o: Vital Signs Period Temp Pulse Resp BP Sys/Gregory Pulse Ox Last 24 Hr 97.5 F-98.7 F 60-79 18-20 114-154/42-86 98-99 Constitutional: Yes: Calm, nad Eyes: Yes: Conjunctiva Clear, HENT: Yes: Atraumatic, Normocephalic Neck: Yes: Supple, Trachea Midline Respiratory: Yes: Regular, CTA Bilaterally Gastrointestinal: Yes: Normal Bowel Sounds, Soft. No: Tenderness Cardiovascular: Yes: Pulse Irregular JVD: yes Heart Sounds: Yes: S1, S2 Extremities: No: Cold Edema: 1+ le edema bl with erythema bl Peripheral Pulses WNL: Yes Peripheral Pulses: 2+ Left Doralis Pedis, 2+ Right Dorsalis Pedis Integumentary: No: Jaundice Neurological: Yes: Alert, Oriented Current Medications Generic Name Dose Route Start Last Admin Trade Name Freq PRN Reason Stop Dose Admin Atorvastatin Calcium 10 mg 09/05/18 22:00 09/05/18 22:26 Lipitor - PO 10 mg HS [facility] Administration Carvedilol 25 mg 09/05/18 10:00 09/06/18 09:34 Coreg - PO 25 mg BID [facility] Administration Clonidine HCl 0.2 mg 09/06/18 10:00 09/06/18 09:34 Catapres Tts Patch - TD 0.2 mg Q7D@1000 [facility] Administration Furosemide 80 mg 09/05/18 06:00 09/06/18 06:03 Lasix Injection - IVPUSH 80 mg BID@0600,1400 [facility] Administration Cefazolin Sodium 1 gm in 50 mls @ 100 mls/hr 09/05/18 19:00 09/06/18 09:34 Ancef 1 Gm Premixed Ivpb - IVPB 100 mls/hr Q8H-IV [facility] Administration Insulin Aspart 1 vial 09/05/18 16:30 09/06/18 06:04 Novolog Vial Sliding Scale - SQ Not Given ACHS [facility] Protocol Polyethylene Glycol 17 gm 09/05/18 10:00 09/06/18 09:42 Miralax (For Daily Use) - PO 17 gm DAILY [facility] Administration Tamsulosin HCl 0.4 mg 09/05/18 08:30 09/06/18 09:34 Flomax - PO 0.4 mg DAILY@0830 [facility] Administration Warfarin Sodium 2 mg 09/05/18 18:00 09/05/18 17:28 Coumadin - PO Not Given DAILY@1800 [facility] CBC, BMP 09/06/18 05:45 09/06/18 05:45 cxr: mild chf MIBI 07/05 (pers): no STs; small area apical isch and basal inferolateral wall; mild global LV hypo, EF 46% mibi 08/2018: lvef 66, no ischemia ecg: afib, rate ok, no ischemic changes Echo 10/07: 1. The left ventricular size is normal. 2. Overall left ventricular systolic function is normal with, an EF between 60 - 65 %. 3. LA pressure is uncertain. 4. No regional wall motion abnormalities were noted (basal inferolateral wall may be mildly hypokinetic). 5. The right ventricle is normal in size and function. 6. Left atrium is severely dilated by volume. 7. There is mild aortic regurgitation. 8. The mitral valve is normal in appearance, with no prolapse, flail leaflet, or tethered motion noted. 9. 2 separate MR jets are present: one directed anteriorly, the other central. The anterior jet hugs the antreior LA wall/interatrial septum and is not seen to wrap around the posterior LA wall. The visual appearance is of moderate mitral regurgitation, however the eccentric nature of the anterior jet may lead to underestimation of MR severity on color jet flow analysis. The peak mitral inflow velocity (0.7 m/sec) makes severe mitral regurgitation less likely. There is no systolic flow reversal present in the pulmonary vein. PISA hemisphere could not be measured. Estimated regurgitant volume by volumetric measurements yields and estimate of 35 cc. 10. Mild tricuspid regurgitation present. 11. Unable to estimate RVSP due to inadequate TR jet spectral doppler profile. echo 07/2018: nl lv/rv, lae, mild mr/tr/ar, nl rvsp tele: afib, rate ok a/p: 82 yo with h/o CAD s/p CABG, afib on coumadin CVA, hypertension, hyperlipidemia, IDDM, liver cancer(Chemo, 40% liver removed in 2008), who p/w chf. acute diastolic chf: -on torsemide 100 at home w/o resolution of vol overload -baseline wt low/mid 160lbs, here in 170s now with le edema and bell -vol improving, cr better, cont lasix iv, daily wts, daily chem7 -recent echo and mibi unremarkable pAFib: - Rate controlled on coreg - on warfarin per inr CAD, S/P CABG '05: GAN TO LAD, SVG SEQUENTIAL TO DIAG-->OM; SVG TO RPDA: - on arb, statin, at home, continue -recent mibi and echo unremarkable -no signs acs here. trop borderline value with nl ck, similar to prior baseline trops, trend for now HTN: - stable, cont home meds ckd: -baseline cr 2.2, monitor with diuresis le cellulitis: -abx per ID
--- NOTE | 2018-09-06 12:21 | PN ---
Progress Note, Physician Chief Complaint: patient sitting up in bed no distress - Current Medication List Current Medications: Active Medications Atorvastatin Calcium (Lipitor -) 10 mg PO HS [facility] Last Admin: 09/05/18 22:26 Dose: 10 mg Carvedilol (Coreg -) 25 mg PO BID [facility] Last Admin: 09/06/18 09:34 Dose: 25 mg Clonidine HCl (Catapres Tts Patch -) 0.2 mg TD Q7D@1000 [facility] Last Admin: 09/06/18 09:34 Dose: 0.2 mg Furosemide (Lasix Injection -) 80 mg IVPUSH BID@0600,1400 [facility] Last Admin: 09/06/18 06:03 Dose: 80 mg Cefazolin Sodium (Ancef 1 Gm Premixed Ivpb -) 1 gm in 50 mls @ 100 mls/hr IVPB Q8H-IV [facility] Last Admin: 09/06/18 09:34 Dose: 100 mls/hr Insulin Aspart (Novolog Vial Sliding Scale -) 1 vial SQ ACHS [facility]; Protocol Last Admin: 09/06/18 06:04 Dose: Not Given Polyethylene Glycol (Miralax (For Daily Use) -) 17 gm PO DAILY [facility] Last Admin: 09/06/18 09:42 Dose: 17 gm Tamsulosin HCl (Flomax -) 0.4 mg PO DAILY@0830 [facility] Last Admin: 09/06/18 09:34 Dose: 0.4 mg Warfarin Sodium (Coumadin -) 2 mg PO DAILY@1800 [facility] Last Admin: 09/05/18 17:28 Dose: Not Given - Objective Vital Signs: Vital Signs Temperature 97.7 F 09/06/18 09:00 Pulse Rate 77 09/06/18 09:00 Respiratory Rate 20 09/06/18 09:00 Blood Pressure 134/44 L 09/06/18 09:00 O2 Sat by Pulse Oximetry (%) 99 09/06/18 09:00 Constitutional: Yes: Calm Cardiovascular: Yes: Regular Rate and Rhythm, S1, S2 Respiratory: Yes: CTA Bilaterally Gastrointestinal: Yes: Normal Bowel Sounds, Soft Extremities: Yes: Erythema Edema: Yes Labs: CBC, BMP 09/06/18 05:45 09/06/18 05:45 INR, PTT INR 2.98 (0.83-1.09) H 09/06/18 05:45 Problem List - Problems (1) Acute CHF (congestive heart failure) Assessment/Plan: lasix bid check venous doppler r/o dvt- no dvts daily weights cardiology on board weight is down from 164 to 161 Code(s): I50.9 - HEART FAILURE, UNSPECIFIED Qualifiers: Heart failure type: unspecified Qualified Code(s): I50.9 - Heart failure, unspecified (2) Afib Assessment/Plan: rate control coumadin on hold today for inr check inr in AM Code(s): I48.91 - UNSPECIFIED ATRIAL FIBRILLATION (3) Cellulitis Assessment/Plan: right leg ancef ID eval Microbiology 09/05/18 15:00 Nares - Mrsa Screen - Right MRSA Screen - Final NO MRSA ISOLATED 09/05/18 15:00 Nares - Mrsa Screen - Left MRSA Screen - Final NO MRSA ISOLATED 09/04/18 15:39 Urine - Urine - Catheterized Urine Culture - Final NO GROWTH OBTAINED 09/04/18 12:12 Blood - Peripheral Venous Blood Culture - Preliminary NO GROWTH OBTAINED AFTER 24 HOURS, INCUBATION TO CONTINUE FOR 4 DAYS. 09/04/18 12:10 Blood - Peripheral Venous Blood Culture - Preliminary NO GROWTH OBTAINED AFTER 24 HOURS, INCUBATION TO CONTINUE FOR 4 DAYS. Code(s): L03.90 - CELLULITIS, UNSPECIFIED (4) BPH (benign prostatic hyperplasia) Assessment/Plan: flomax Code(s): N40.0 - BENIGN PROSTATIC HYPERPLASIA WITHOUT LOWER URINRY TRACT SYMP (5) Diabetes Assessment/Plan: sliding scale [id number] insulin lantus 8 units at night novolog 12 units after BK If bgm >100 10 unts after lunch and 12 at night Code(s): E11.9 - TYPE 2 DIABETES MELLITUS WITHOUT COMPLICATIONS Qualifiers: Diabetes mellitus type: type 2
[2018-09-06] MEDS ORDERED: INSULIN (NOVOLOG) ASPART 100 UNITS/ML 10ML VIAL SQ ONE (12:29)
[2018-09-06] MEDS ORDERED: INSULIN (NOVOLOG) ASPART 100 UNITS/ML 10ML VIAL SQ SCH ×2 (13:00→22:00)
[2018-09-06] MEDS: INSULIN (NOVOLOG) ASPART 100 UNITS/ML 10ML VIAL SQ SCH ×2 (13:03→17:07)
--- NOTE | 2018-09-06 13:41 | PN ---
Progress Note (short form) - Note Progress Note: Renal follow up for CKD Pt seen and examined at the bedside feels better no sob/bell leg swelling improving making urine Vital Signs Temperature 97.7 F 09/06/18 09:00 Pulse Rate 77 09/06/18 09:00 Respiratory Rate 20 09/06/18 09:00 Blood Pressure 134/44 L 09/06/18 09:00 O2 Sat by Pulse Oximetry (%) 99 09/06/18 09:00 Intake & Output 09/03/18 09/04/18 09/05/18 09/06/18 23:59 23:59 23:59 23:59 Intake Total 100 10 Output Total 2260 3290 900 Balance -2160 -3830 -900 Weight 77.111 kg 74.571 kg 73.301 kg NAD Dec BS at lung bases soft NT/ND no bladder distension ++ edema in LE CBC, BMP 09/06/18 05:45 09/06/18 05:45 Current Medications Atorvastatin Calcium (Lipitor -) 10 mg PO HS [facility] Last Admin: 09/05/18 22:26 Dose: 10 mg Carvedilol (Coreg -) 25 mg PO BID [facility] Last Admin: 09/06/18 09:34 Dose: 25 mg Clonidine HCl (Catapres Tts Patch -) 0.2 mg TD Q7D@1000 [facility] Last Admin: 09/06/18 09:34 Dose: 0.2 mg Furosemide (Lasix Injection -) 80 mg IVPUSH BID@0600,1400 [facility] Last Admin: 09/06/18 06:03 Dose: 80 mg Cefazolin Sodium (Ancef 1 Gm Premixed Ivpb -) 1 gm in 50 mls @ 100 mls/hr IVPB Q8H-IV [facility] Last Admin: 09/06/18 09:34 Dose: 100 mls/hr Insulin Aspart (Novolog Vial Sliding Scale -) 1 vial SQ ACHS [facility]; Protocol Last Admin: 09/06/18 06:04 Dose: Not Given Insulin Aspart (Novolog Vial) 12 units SQ ACBK [facility]; Protocol Insulin Aspart (Novolog Vial) 12 units SQ DAILY@1800 [facility]; Protocol Insulin Aspart (Novolog Vial) 10 units SQ DAILY@1300 [facility]; Protocol Last Admin: 09/06/18 13:03 Dose: 10 units Insulin Detemir (Levemir Vial) 8 units SQ HS [facility] Polyethylene Glycol (Miralax (For Daily Use) -) 17 gm PO DAILY [facility] Last Admin: 09/06/18 09:42 Dose: 17 gm Tamsulosin HCl (Flomax -) 0.4 mg PO DAILY@0830 [facility] Last Admin: 09/06/18 09:34 Dose: 0.4 mg Warfarin Sodium (Coumadin -) 2 mg PO DAILY@1800 [facility] Last Admin: 09/05/18 17:28 Dose: Not Given 83 year old gentleman with hx of Afib on Coumadin, hypertension, hyperlipidemia , IDDM, Liver cancer s/p partial resection, CAD s/p CABG, CKD (baseline Cr 1.7-2 ) who presented worsening LE edema and SOB and admitted for CHF exacerbation/ fluid overload. #CHF exacerbation/Fluid overload #LE cellulitis #CKD stage 4 #IDDM #Hypertension #Afib on A/C Renal function stable continue IV Lasix as per Cardiology Trend renal function and electrolytes harley discontinued continue flomax Continue Abx as per primary team Local wound care for legs Ramy Contreras DO
[2018-09-06] MEDS: WARFARIN NA 2 MG TABLET (UD) PO SCH (17:10)
--- NOTE | 2018-09-06 20:25 | PN ---
Progress Note, Physician History of Present Illness: NO C/O LEG PAIN NO F/C LEUKOPENIA, AZOTEMIA IMPROVED - Current Medication List Current Medications: Active Medications Atorvastatin Calcium (Lipitor -) 10 mg PO HS [facility] Last Admin: 09/05/18 22:26 Dose: 10 mg Carvedilol (Coreg -) 25 mg PO BID [facility] Last Admin: 09/06/18 09:34 Dose: 25 mg Clonidine HCl (Catapres Tts Patch -) 0.2 mg TD Q7D@1000 [facility] Last Admin: 09/06/18 09:34 Dose: 0.2 mg Furosemide (Lasix Injection -) 80 mg IVPUSH BID@0600,1400 [facility] Last Admin: 09/06/18 14:36 Dose: 80 mg Cefazolin Sodium (Ancef 1 Gm Premixed Ivpb -) 1 gm in 50 mls @ 100 mls/hr IVPB Q8H-IV [facility] Last Admin: 09/06/18 17:11 Dose: 100 mls/hr Insulin Aspart (Novolog Vial) 12 units SQ ACBK [facility]; Protocol Insulin Aspart (Novolog Vial) 12 units SQ DAILY@1800 [facility]; Protocol Last Admin: 09/06/18 17:07 Dose: 12 units Insulin Aspart (Novolog Vial) 10 units SQ DAILY@1300 [facility]; Protocol Last Admin: 09/06/18 13:03 Dose: 10 units Insulin Detemir (Levemir Vial) 8 units SQ [facility] Polyethylene Glycol (Miralax (For Daily Use) -) 17 gm PO DAILY [facility] Last Admin: 09/06/18 09:42 Dose: 17 gm Tamsulosin HCl (Flomax -) 0.4 mg PO DAILY@0830 [facility] Last Admin: 09/06/18 09:34 Dose: 0.4 mg Warfarin Sodium (Coumadin -) 2 mg PO DAILY@1800 [facility] Last Admin: 09/06/18 17:10 Dose: 2 mg - Objective Vital Signs: Vital Signs Temperature 97.7 F 09/06/18 17:53 Pulse Rate 72 09/06/18 17:53 Respiratory Rate 20 09/06/18 17:53 Blood Pressure 138/48 L 09/06/18 17:53 O2 Sat by Pulse Oximetry (%) 99 09/06/18 09:00 Constitutional: Yes: No Distress Cardiovascular: Yes: Regular Rate and Rhythm, S1, S2 Respiratory: Yes: CTA Bilaterally Gastrointestinal: Yes: Normal Bowel Sounds, Soft Extremities: Yes: Other (SLIGHT DECREASE LE EDEMA/ ERYTHEMA) Labs: CBC, BMP 09/06/18 05:45 09/06/18 05:45 INR, PTT INR 2.98 (0.83-1.09) H 09/06/18 05:45 Assessment/Plan LE CELLULITIS LEUKOPENIA-IMPROVED AZOTEMIA- IMPROVED CONTINUE CEFAZOLIN
[2018-09-06] MEDS: ATORVASTATIN CA 10 MG TABLET (FP) PO SCH (21:29)
[2018-09-06] MEDS: INSULIN (LEVEMIR) 100 UNITS/ML UNITS SQ SCH (21:36)
[2018-09-07] MEDS: CEFAZOLIN 1 GM/D5W 1 GM/50 ML BAG IVPB SCH ×3 (02:19→17:29)
[2018-09-07] MEDS: FUROSEMIDE 40 MG/4 ML INJECTABLE VIAL IVPUSH SCH ×2 (05:23→05:24)
[2018-09-07] MEDS: INSULIN (NOVOLOG) ASPART 100 UNITS/ML 10ML VIAL SQ SCH ×3 (07:21→17:29)
[2018-09-07 07:50] LABS: ANION GAP 9 MMOL/L (8-16); BLOOD UREA NITROGEN 59 mg/dL (7-18); CALCIUM 8.3 mg/dL (8.5-10.1); CHLORIDE 98 mmol/L (98-107); CO2 32 mmol/L (21-32); GLUCOSE,RANDOM 165 mg/dL (74-106); MAGNESIUM 2.4 mg/dL (1.8-2.4); PHOSPHOROUS 3.3 mg/dL (2.5-4.9); POTASSIUM 3.9 mmol/L (3.5-5.1); SODIUM 139 mmol/L (136-145)
[2018-09-07 07:56] LABS: INR 2.23 (0.83-1.09); PROTHROMBIN TIME (PATIENT) 26.5 SEC (9.7-13.0)
[2018-09-07] MEDS: TAMSULOSIN HCL 0.4 MG CAP PO SCH (08:50)
[2018-09-07] MEDS: CARVEDILOL 25 MG TABLET (FP) PO SCH ×2 (09:06→21:53)
[2018-09-07] MEDS: POLYETHYLENE GLYCOL 3350 119 GM BTL PO SCH (09:06)
--- NOTE | 2018-09-07 09:20 | PN ---
Progress Note, Physician Chief Complaint: sob History of Present Illness: no more sob including walking halls leg swelling improved but still significant on cp, palpit no cigs - Current Medication List Current Medications: Active Medications Atorvastatin Calcium (Lipitor -) 10 mg PO HS [facility] Last Admin: 09/06/18 21:29 Dose: 10 mg Carvedilol (Coreg -) 25 mg PO BID [facility] Last Admin: 09/07/18 09:06 Dose: 25 mg Clonidine HCl (Catapres Tts Patch -) 0.2 mg TD Q7D@1000 [facility] Last Admin: 09/06/18 09:34 Dose: 0.2 mg Furosemide (Lasix Injection -) 80 mg IVPUSH BID@0600,1400 [facility] Last Admin: 09/07/18 05:23 Dose: 80 mg Cefazolin Sodium (Ancef 1 Gm Premixed Ivpb -) 1 gm in 50 mls @ 100 mls/hr IVPB Q8H-IV [facility] Last Admin: 09/07/18 09:05 Dose: 100 mls/hr Insulin Aspart (Novolog Vial) 12 units SQ ACBK [facility]; Protocol Last Admin: 09/07/18 07:21 Dose: Not Given Insulin Aspart (Novolog Vial) 12 units SQ DAILY@1800 [facility]; Protocol Last Admin: 09/06/18 17:07 Dose: 12 units Insulin Aspart (Novolog Vial) 10 units SQ DAILY@1300 [facility]; Protocol Last Admin: 09/06/18 13:03 Dose: 10 units Insulin Detemir (Levemir Vial) 8 units SQ HS [facility] Last Admin: 09/06/18 21:36 Dose: Not Given Polyethylene Glycol (Miralax (For Daily Use) -) 17 gm PO DAILY [facility] Last Admin: 09/07/18 09:06 Dose: 17 gm Tamsulosin HCl (Flomax -) 0.4 mg PO DAILY@0830 [facility] Last Admin: 09/07/18 08:50 Dose: 0.4 mg Warfarin Sodium (Coumadin -) 2 mg PO DAILY@1800 [facility] Last Admin: 09/06/18 17:10 Dose: 2 mg - Objective Vital Signs: Vital Signs Temperature 97.8 F 09/07/18 06:00 Pulse Rate 62 09/07/18 06:00 Respiratory Rate 16 09/07/18 07:52 Blood Pressure 138/58 L 09/07/18 06:00 O2 Sat by Pulse Oximetry (%) 94 L 09/07/18 07:52 Constitutional: Yes: No Distress, Calm Eyes: No: Sclera Icterus HENT: No: Nasal Congestion Cardiovascular: Yes: Pulse Irregular, S1, S2, Other (PMI non diplaced). No: Gallop, Murmur Respiratory: Yes: CTA Bilaterally, Diminished (R base). No: Accessory Muscle Use, Rales, Wheezes Gastrointestinal: Yes: Normal Bowel Sounds, Soft. No: Tenderness Musculoskeletal: Yes: Other (No kyphosis) Extremities: No: Cold, Cyanosis Edema: Yes (2+ pretibs, 2-3+ ankles) Integumentary: No: Jaundice Neurological: Yes: Alert, Oriented (x3) Psychiatric: No: Agitated Labs: CBC, BMP 09/06/18 05:45 09/07/18 07:00 INR, PTT INR 2.23 (0.83-1.09) H 09/07/18 07:00 Assessment/Plan cxr: mild chf MIBI 07/05 (pers): no STs; small area apical isch and basal inferolateral wall; mild global LV hypo, EF 46% mibi 08/2018: lvef 66, no ischemia ecg: afib, rate ok, no ischemic changes Echo 10/07: 1. The left ventricular size is normal. 2. Overall left ventricular systolic function is normal with, an EF between 60 - 65 %. 3. LA pressure is uncertain. 4. No regional wall motion abnormalities were noted (basal inferolateral wall may be mildly hypokinetic). 5. The right ventricle is normal in size and function. 6. Left atrium is severely dilated by volume. 7. There is mild aortic regurgitation. 8. The mitral valve is normal in appearance, with no prolapse, flail leaflet, or tethered motion noted. 9. 2 separate MR jets are present: one directed anteriorly, the other central. The anterior jet hugs the antreior LA wall/interatrial septum and is not seen to wrap around the posterior LA wall. The visual appearance is of moderate mitral regurgitation, however the eccentric nature of the anterior jet may lead to underestimation of MR severity on color jet flow analysis. The peak mitral inflow velocity (0.7 m/sec) makes severe mitral regurgitation less likely. There is no systolic flow reversal present in the pulmonary vein. PISA hemisphere could not be measured. Estimated regurgitant volume by volumetric measurements yields and estimate of 35 cc. 10. Mild tricuspid regurgitation present. 11. Unable to estimate RVSP due to inadequate TR jet spectral doppler profile. echo 07/2018: nl lv/rv, lae, mild mr/tr/ar, nl rvsp tele: a/p: 82 yo with h/o CAD s/p CABG, afib on coumadin CVA, hypertension, hyperlipidemia, IDDM, liver cancer(Chemo, 40% liver removed in 2008), who p/w chf. acute diastolic chf, functional (dynamic) MR, ++ LE edema with cellulitis (RLE) -on torsemide 100 at home w/o clinical response -receiving lasix 80 iv bid here--responding well -09/07: wt down to 162 from 170, has plateau'd the past two days. renal fxn improved. swelling remains significant. incr lasix to 100 iv BID -consider add metolazone tomorrow or increase lasix to TID depending on subjective UOP response -recent echo and mibi unremarkable -his mitral regurg is very bp sensitive--bp control as doing pAFib: - remote paroxysmal AF, then persistent AF for past 2 mo - Rate controlled on coreg, continue same rx - on warfarin per inr - will consider elective DCCV once acute issues resolve CAD, S/P CABG '05: GAN TO LAD, SVG SEQUENTIAL TO DIAG-->OM; SVG TO RPDA: -cont home statin, at home, continue (not on ASA, given pt on warfarin) -recent mibi in office 09/10 no ischemia, nl LVEF. -no signs acs here. 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
--- NOTE | 2018-09-07 09:47 | PN ---
Progress Note (short form) - Note Progress Note: Renal follow up for CKD Pt seen and examined at the bedside feels much better no overt sob or bell did not sleep well last night leg swelling improving no fever, chills Vital Signs Temperature 97.8 F 09/07/18 06:00 Pulse Rate 62 09/07/18 06:00 Respiratory Rate 16 09/07/18 07:52 Blood Pressure 138/58 L 09/07/18 06:00 O2 Sat by Pulse Oximetry (%) 94 L 09/07/18 07:52 Intake & Output 09/04/18 09/05/18 09/06/18 09/07/18 23:59 23:59 23:59 23:59 Intake Total 100 10 360 260 Output Total 2260 3290 2850 650 Balance -2160 -3280 -2490 -390 Weight 77.111 kg 74.571 kg 73.301 kg 73.573 kg NAD Dec BS at lung bases soft NT/ND no bladder distension edema in LE improving erythemia in LE persists CBC, BMP 09/06/18 05:45 09/07/18 07:00 Current Medications Atorvastatin Calcium (Lipitor -) 10 mg PO HS [facility] Last Admin: 09/06/18 21:29 Dose: 10 mg Carvedilol (Coreg -) 25 mg PO BID [facility] Last Admin: 09/07/18 09:06 Dose: 25 mg Clonidine HCl (Catapres Tts Patch -) 0.2 mg TD Q7D@1000 [facility] Last Admin: 09/06/18 09:34 Dose: 0.2 mg Furosemide (Lasix Injection -) 80 mg IVPUSH BID@0600,1400 [facility] Last Admin: 09/07/18 05:23 Dose: 80 mg Cefazolin Sodium (Ancef 1 Gm Premixed Ivpb -) 1 gm in 50 mls @ 100 mls/hr IVPB Q8H-IV [facility] Last Admin: 09/07/18 09:05 Dose: 100 mls/hr Insulin Aspart (Novolog Vial) 12 units SQ ACBK [facility]; Protocol Last Admin: 09/07/18 07:21 Dose: Not Given Insulin Aspart (Novolog Vial) 12 units SQ DAILY@1800 [facility]; Protocol Last Admin: 09/06/18 17:07 Dose: 12 units Insulin Aspart (Novolog Vial) 10 units SQ DAILY@1300 [facility]; Protocol Last Admin: 09/06/18 13:03 Dose: 10 units Insulin Detemir (Levemir Vial) 8 units SQ HS [facility] Last Admin: 09/06/18 21:36 Dose: Not Given Polyethylene Glycol (Miralax (For Daily Use) -) 17 gm PO DAILY [facility] Last Admin: 09/07/18 09:06 Dose: 17 gm Tamsulosin HCl (Flomax -) 0.4 mg PO DAILY@0830 [facility] Last Admin: 09/07/18 08:50 Dose: 0.4 mg Warfarin Sodium (Coumadin -) 2 mg PO DAILY@1800 [facility] Last Admin: 09/06/18 17:10 Dose: 2 mg 83 year old gentleman with hx of Afib on Coumadin, hypertension, hyperlipidemia , IDDM, Liver cancer s/p partial resection, CAD s/p CABG, CKD (baseline Cr 1.7-2 ) who presented worsening LE edema and SOB and admitted for CHF exacerbation/ fluid overload. #CHF exacerbation/Fluid overload #LE cellulitis #CKD stage 4 #IDDM #Hypertension #Afib on A/C #Chronic Thrombocytopenia Renal function stable continue IV Lasix as per Cardiology, titrate to oral when pt evolemic Trend renal function and electrolyte continue flomax Continue Abx as per primary team Local wound care for legs Trend plt counts, not on heparin Ramy Contreras DO
[2018-09-07] MEDS ORDERED: INSULIN (NOVOLOG) ASPART 100 UNITS/ML 10ML VIAL ONE (12:19)
[2018-09-07] MEDS: FUROSEMIDE 100 MG/10 ML INJECTABLE VIAL IVPUSH SCH (13:02)
--- NOTE | 2018-09-07 15:24 | PN ---
Progress Note, Physician Chief Complaint: B/L LE Edema-Cellulitis CHF exacerbation History of Present Illness: Previous notes and events reviewed awake and alert NAD denies chest pain, SOB, palpitations - Current Medication List Current Medications: Active Medications Atorvastatin Calcium (Lipitor -) 10 mg PO HS COUNTS INCLUDE 234 BEDS AT THE [facility] Last Admin: 09/06/18 21:29 Dose: 10 mg Carvedilol (Coreg -) 25 mg PO BID COUNTS INCLUDE 234 BEDS AT THE [facility] Last Admin: 09/07/18 09:06 Dose: 25 mg Clonidine HCl (Catapres Tts Patch -) 0.2 mg TD Q7D@1000 COUNTS INCLUDE 234 BEDS AT THE [facility] Last Admin: 09/06/18 09:34 Dose: 0.2 mg Furosemide (Lasix Injection -) 100 mg IVPUSH BID@0600,1400 COUNTS INCLUDE 234 BEDS AT THE [facility] Last Admin: 09/07/18 13:02 Dose: 100 mg Cefazolin Sodium (Ancef 1 Gm Premixed Ivpb -) 1 gm in 50 mls @ 100 mls/hr IVPB Q8H-IV COUNTS INCLUDE 234 BEDS AT THE [facility] Last Admin: 09/07/18 09:05 Dose: 100 mls/hr Insulin Aspart (Novolog Vial) 12 units SQ ACBK COUNTS INCLUDE 234 BEDS AT THE [facility]; Protocol Last Admin: 09/07/18 07:21 Dose: Not Given Insulin Aspart (Novolog Vial) 12 units SQ DAILY@1800 [facility]; Protocol Last Admin: 09/06/18 17:07 Dose: 12 units Insulin Aspart (Novolog Vial) 10 units SQ DAILY@1300 [facility]; Protocol Last Admin: 09/07/18 12:20 Dose: 10 units Insulin Detemir (Levemir Vial) 8 units SQ [facility] Last Admin: 09/06/18 21:36 Dose: Not Given Polyethylene Glycol (Miralax (For Daily Use) -) 17 gm PO DAILY COUNTS INCLUDE 234 BEDS AT THE [facility] Last Admin: 09/07/18 09:06 Dose: 17 gm Tamsulosin HCl (Flomax -) 0.4 mg PO DAILY@0830 COUNTS INCLUDE 234 BEDS AT THE [facility] Last Admin: 09/07/18 08:50 Dose: 0.4 mg Warfarin Sodium (Coumadin -) 2 mg PO DAILY@1800 COUNTS INCLUDE 234 BEDS AT THE [facility] Last Admin: 09/06/18 17:10 Dose: 2 mg - Objective Vital Signs: Vital Signs Temperature 97.9 F 09/07/18 12:08 Pulse Rate 70 09/07/18 12:08 Respiratory Rate 18 09/07/18 12:08 Blood Pressure 144/64 09/07/18 12:08 O2 Sat by Pulse Oximetry (%) 94 L 09/07/18 07:52 Constitutional: Yes: Well Nourished, No Distress, Calm Eyes: Yes: Conjunctiva Clear HENT: Yes: Normocephalic Cardiovascular: Yes: Pulse Irregular Respiratory: Yes: Regular, Diminished Gastrointestinal: Yes: Normal Bowel Sounds, Soft Musculoskeletal: Yes: Muscle Weakness Extremities: Yes: Cool Edema: Yes Edema: LLE: 2+, RLE: 2+ Neurological: Yes: Alert, Oriented Psychiatric: Yes: Alert, Oriented Labs: CBC, BMP 09/06/18 05:45 09/07/18 07:00 INR, PTT INR 2.23 (0.83-1.09) H 09/07/18 07:00 Problem List - Problems (1) Acute CHF (congestive heart failure) Assessment/Plan: -cardiology on board -continue with Lasix IVP BID -daily weights -1L fluid restriction Code(s): I50.9 - HEART FAILURE, UNSPECIFIED Qualifiers: Heart failure type: unspecified Qualified Code(s): I50.9 - Heart failure, unspecified (2) BPH (benign prostatic hyperplasia) Assessment/Plan: -continue tamsulosin 0.4mg daily Code(s): N40.0 - BENIGN PROSTATIC HYPERPLASIA WITHOUT LOWER URINRY TRACT SYMP (3) Cellulitis Assessment/Plan: -ID on board -continue IV Cefazolin Code(s): L03.90 - CELLULITIS, UNSPECIFIED (4) Diabetes Assessment/Plan: -BGM ACHS -levemir, novolog Code(s): E11.9 - TYPE 2 DIABETES MELLITUS WITHOUT COMPLICATIONS Qualifiers: Diabetes mellitus type: type 2 (5) Afib Assessment/Plan: -on coumadin 2mg daily -daily INR -INR level 2-3 Code(s): I48.91 - UNSPECIFIED ATRIAL FIBRILLATION (6) CKD (chronic kidney disease) Assessment/Plan: -renal on board -BUN/Cr 59/2.0 -monitor renal function Code(s): N18.9 - CHRONIC KIDNEY DISEASE, UNSPECIFIED Qualifiers: Chronic kidney disease stage: unspecified stage Qualified Code(s): N18.9 - Chronic kidney disease, unspecified Assessment/Plan see problem list
[2018-09-07] MEDS: WARFARIN NA 2 MG TABLET (UD) PO SCH (17:29)
[2018-09-07] MEDS: INSULIN (LEVEMIR) 100 UNITS/ML UNITS SQ SCH (21:52)
[2018-09-07] MEDS: ATORVASTATIN CA 10 MG TABLET (FP) PO SCH (21:53)
[2018-09-08] MEDS: CEFAZOLIN 1 GM/D5W 1 GM/50 ML BAG IVPB SCH ×3 (01:55→17:22)
[2018-09-08] MEDS: INSULIN (NOVOLOG) ASPART 100 UNITS/ML 10ML VIAL SQ SCH ×3 (06:58→17:23)
[2018-09-08] MEDS: FUROSEMIDE 100 MG/10 ML INJECTABLE VIAL IVPUSH SCH ×2 (06:58→13:54)
[2018-09-08 07:20] LABS: INR 2.04 (0.83-1.09); PROTHROMBIN TIME (PATIENT) 24.2 SEC (9.7-13.0)
[2018-09-08 07:34] LABS: HEMATOCRIT 30.2 % (35.4-49); HEMOGLOBIN 10.6 GM/dL (11.7-16.9); MCHC 35.2 g/dl (32.0-35.9); MEAN CELL VOLUME 96.7 fl (80-96); MEAN PLT VOLUME 9.9 fl (7.5-11.1); PLATELET COUNT 77 K/MM3 (134-434); RBC 3.12 M/mm3 (4.00-5.60); RDW 14.3 % (11.9-15.9); WHITE BLOOD COUNT 3.9 K/mm3 (4.0-10.0)
[2018-09-08 07:52] LABS: ALBUMIN 2.6 g/dl (3.4-5.0); ALK PHOS 76 U/L (45-117); ANION GAP 6 MMOL/L (8-16); BILIRUBIN,TOTAL 0.7 mg/dL (0.2-1); BLOOD UREA NITROGEN 58 mg/dL (7-18); CALCIUM 8.3 mg/dL (8.5-10.1); CHLORIDE 98 mmol/L (98-107); CO2 33 mmol/L (21-32); GLUCOSE,RANDOM 217 mg/dL (74-106); POTASSIUM 4.3 mmol/L (3.5-5.1); SGOT/AST 15 U/L (15-37); SGPT/ALT 11 U/L (13-61); SODIUM 136 mmol/L (136-145); TOT PROT 5.1 g/dl (6.4-8.2)
[2018-09-08] MEDS: TAMSULOSIN HCL 0.4 MG CAP PO SCH (08:30)
--- NOTE | 2018-09-08 09:32 | PN ---
Progress Note, Physician Chief Complaint: leg swelling History of Present Illness: no sob or orthopnea legs less swollen no cp. no palpit urinated much more last night and this AM with higher dose lasix no cigs - Current Medication List Current Medications: Active Medications Atorvastatin Calcium (Lipitor -) 10 mg PO HS [facility] Last Admin: 09/07/18 21:53 Dose: 10 mg Carvedilol (Coreg -) 25 mg PO BID [facility] Last Admin: 09/07/18 21:53 Dose: 25 mg Clonidine HCl (Catapres Tts Patch -) 0.2 mg TD Q7D@1000 [facility] Last Admin: 09/06/18 09:34 Dose: 0.2 mg Furosemide (Lasix Injection -) 100 mg IVPUSH BID@0600,1400 [facility] Last Admin: 09/08/18 06:58 Dose: 100 mg Cefazolin Sodium (Ancef 1 Gm Premixed Ivpb -) 1 gm in 50 mls @ 100 mls/hr IVPB Q8H-IV [facility] Last Admin: 09/08/18 01:55 Dose: 100 mls/hr Insulin Aspart (Novolog Vial) 12 units SQ ACBK [facility]; Protocol Last Admin: 09/08/18 06:58 Dose: 12 units Insulin Aspart (Novolog Vial) 12 units SQ DAILY@1800 [facility]; Protocol Last Admin: 09/07/18 17:29 Dose: 12 units Insulin Aspart (Novolog Vial) 10 units SQ DAILY@1300 [facility]; Protocol Last Admin: 09/07/18 12:20 Dose: 10 units Insulin Detemir (Levemir Vial) 8 units SQ [facility] Last Admin: 09/07/18 21:52 Dose: Not Given Polyethylene Glycol (Miralax (For Daily Use) -) 17 gm PO DAILY [facility] Last Admin: 09/07/18 09:06 Dose: 17 gm Tamsulosin HCl (Flomax -) 0.4 mg PO DAILY@0830 [facility] Last Admin: 09/08/18 08:30 Dose: 0.4 mg Warfarin Sodium (Coumadin -) 2 mg PO DAILY@1800 [facility] Last Admin: 09/07/18 17:29 Dose: 2 mg - Objective Vital Signs: Vital Signs Temperature 98.1 F 09/08/18 09:23 Pulse Rate 74 09/08/18 09:23 Respiratory Rate 18 09/08/18 09:23 Blood Pressure 132/55 L 09/08/18 09:23 O2 Sat by Pulse Oximetry (%) 99 09/07/18 21:00 Constitutional: Yes: No Distress, Calm Eyes: No: Sclera Icterus HENT: No: Nasal Congestion Cardiovascular: Yes: Regular Rate and Rhythm, S1, S2, Other (PMI non diplaced). No: JVD, Gallop, Murmur Respiratory: Yes: CTA Bilaterally. No: Accessory Muscle Use, Rales, Wheezes Gastrointestinal: Yes: Normal Bowel Sounds, Soft. No: Tenderness Musculoskeletal: Yes: Other (No kyphosis) Extremities: No: Cold, Cyanosis Edema: Yes (1+ pretib bilat) Integumentary: No: Jaundice Neurological: Yes: Alert, Oriented (x3) Psychiatric: No: Agitated Labs: CBC, BMP 09/08/18 05:15 09/08/18 05:15 INR, PTT INR 2.04 (0.83-1.09) H 09/08/18 05:15 Assessment/Plan cxr: mild chf MIBI 07/05 (pers): no STs; small area apical isch and basal inferolateral wall; mild global LV hypo, EF 46% mibi 08/2018: lvef 66, no ischemia ecg: afib, rate ok, no ischemic changes Echo 10/07: 1. The left ventricular size is normal. 2. Overall left ventricular systolic function is normal with, an EF between 60 - 65 %. 3. LA pressure is uncertain. 4. No regional wall motion abnormalities were noted (basal inferolateral wall may be mildly hypokinetic). 5. The right ventricle is normal in size and function. 6. Left atrium is severely dilated by volume. 7. There is mild aortic regurgitation. 8. The mitral valve is normal in appearance, with no prolapse, flail leaflet, or tethered motion noted. 9. 2 separate MR jets are present: one directed anteriorly, the other central. The anterior jet hugs the antreior LA wall/interatrial septum and is not seen to wrap around the posterior LA wall. The visual appearance is of moderate mitral regurgitation, however the eccentric nature of the anterior jet may lead to underestimation of MR severity on color jet flow analysis. The peak mitral inflow velocity (0.7 m/sec) makes severe mitral regurgitation less likely. There is no systolic flow reversal present in the pulmonary vein. PISA hemisphere could not be measured. Estimated regurgitant volume by volumetric measurements yields and estimate of 35 cc. 10. Mild tricuspid regurgitation present. 11. Unable to estimate RVSP due to inadequate TR jet spectral doppler profile. echo 07/2018: nl lv/rv, lae, mild mr/tr/ar, nl rvsp a/p: 82 yo with h/o CAD s/p CABG, afib on coumadin CVA, hypertension, hyperlipidemia, IDDM, liver cancer(Chemo, 40% liver removed in 2008), who p/w chf. acute diastolic chf, functional (dynamic) MR, ++ LE edema with cellulitis (RLE) -on torsemide 100 at home w/o clinical response -receiving lasix 80 iv bid here--responding well -09/07: wt down to 162 from 170, has plateau'd the past two days. renal fxn improved. swelling remains significant. incr lasix to 100 iv BID -09/08: received one dose lasix 100 yest afternoon and then this am--reports signif incr UOP subjectively. wt unchanged today--PT DENIES HAVING BEEN WEIGHTED. renal fxn stable. edema improved. same lasix -recent echo and mibi unremarkable -his mitral regurg is very bp sensitive--bp control as doing pAFib: - remote paroxysmal AF, then persistent AF for past 2 mo - Rate controlled on coreg, continue same rx - on warfarin per inr - will consider elective DCCV once acute issues resolve CAD, S/P CABG '05: GAN TO LAD, SVG SEQUENTIAL TO DIAG-->OM; SVG TO RPDA: -cont home statin, at home, continue (not on ASA, given pt on warfarin) -recent mibi in office 09/10 no ischemia, nl LVEF. -no signs acs here. HTN: - h/o labile BPs (worse MR/CHF when bp's uncontrolled, low with orthostatic sx' s at times as well) - ARB held here for LUIS - bp controlled here - cont present med tx LUIS on CKD: -here with cardiorenal syndr initially -baseline creat 2.0-2.2 -renal fxn improved with diuresis, stable at baseline now le cellulitis: -abx per ID h/o hepatoma s/p surgery, chemo -monitored at [place], with stable recurrent dz in abdominal lymph node
[2018-09-08] MEDS: POLYETHYLENE GLYCOL 3350 119 GM BTL PO SCH (09:36)
[2018-09-08] MEDS: CARVEDILOL 25 MG TABLET (FP) PO SCH ×2 (09:36→21:35)
--- NOTE | 2018-09-08 09:36 | PN ---
Progress Note (short form) - Note Progress Note: Renal follow up for CKD Pt seen and examined at the bedside feels better leg edema improved no sob, cp, abd pain Vital Signs Temperature 98.1 F 09/08/18 09:23 Pulse Rate 74 09/08/18 09:23 Respiratory Rate 18 09/08/18 09:23 Blood Pressure 132/55 L 09/08/18 09:23 O2 Sat by Pulse Oximetry (%) 99 09/07/18 21:00 Intake & Output 09/05/18 09/06/18 09/07/18 09/08/18 23:59 23:59 23:59 23:59 Intake Total 10 360 740 20 Output Total 3290 2850 1160 1000 Balance -3405 -2490 -420 -980 Weight 74.571 kg 73.301 kg 73.573 kg 73.663 kg NAD Dec BS at lung bases soft NT/ND no bladder distension edema in LE improving CBC, BMP 09/08/18 05:15 09/08/18 05:15 Current Medications Atorvastatin Calcium (Lipitor -) 10 mg PO HS [facility] Last Admin: 09/07/18 21:53 Dose: 10 mg Carvedilol (Coreg -) 25 mg PO BID [facility] Last Admin: 09/07/18 21:53 Dose: 25 mg Clonidine HCl (Catapres Tts Patch -) 0.2 mg TD Q7D@1000 [facility] Last Admin: 09/06/18 09:34 Dose: 0.2 mg Furosemide (Lasix Injection -) 100 mg IVPUSH BID@0600,1400 [facility] Last Admin: 09/08/18 06:58 Dose: 100 mg Cefazolin Sodium (Ancef 1 Gm Premixed Ivpb -) 1 gm in 50 mls @ 100 mls/hr IVPB Q8H-IV [facility] Last Admin: 09/08/18 01:55 Dose: 100 mls/hr Insulin Aspart (Novolog Vial) 12 units SQ ACBK [facility]; Protocol Last Admin: 09/08/18 06:58 Dose: 12 units Insulin Aspart (Novolog Vial) 12 units SQ DAILY@1800 [facility]; Protocol Last Admin: 09/07/18 17:29 Dose: 12 units Insulin Aspart (Novolog Vial) 10 units SQ DAILY@1300 [facility]; Protocol Last Admin: 09/07/18 12:20 Dose: 10 units Insulin Detemir (Levemir Vial) 8 units SQ HS [facility] Last Admin: 09/07/18 21:52 Dose: Not Given Polyethylene Glycol (Miralax (For Daily Use) -) 17 gm PO DAILY [facility] Last Admin: 09/07/18 09:06 Dose: 17 gm Tamsulosin HCl (Flomax -) 0.4 mg PO DAILY@0830 [facility] Last Admin: 09/08/18 08:30 Dose: 0.4 mg Warfarin Sodium (Coumadin -) 2 mg PO DAILY@1800 [facility] Last Admin: 09/07/18 17:29 Dose: 2 mg 83 year old gentleman with hx of Afib on Coumadin, hypertension, hyperlipidemia , IDDM, Liver cancer s/p partial resection, CAD s/p CABG, CKD (baseline Cr 1.7-2 ) who presented worsening LE edema and SOB and admitted for CHF exacerbation/ fluid overload. #CHF exacerbation/Fluid overload #LE cellulitis #CKD stage 4 #IDDM #Hypertension #Afib on A/C #Chronic Thrombocytopenia Renal function stable continue IV Lasix as per Cardiology, titrate to oral when pt evolemic Trend renal function and electrolytes daily Ramy Contreras DO
--- NOTE | 2018-09-08 15:33 | PN ---
Progress Note, Physician Chief Complaint: B/L LE Edema-Cellulitis CHF exacerbation History of Present Illness: Previous notes and events reviewed awake and alert NAD denies chest pain, SOB, palpitations telemetry d/c to transfer to med-surg floor - Current Medication List Current Medications: Active Medications Atorvastatin Calcium (Lipitor -) 10 mg PO HS [facility] Last Admin: 09/07/18 21:53 Dose: 10 mg Carvedilol (Coreg -) 25 mg PO BID [facility] Last Admin: 09/08/18 09:36 Dose: 25 mg Clonidine HCl (Catapres Tts Patch -) 0.2 mg TD Q7D@1000 [facility] Last Admin: 09/06/18 09:34 Dose: 0.2 mg Furosemide (Lasix Injection -) 100 mg IVPUSH BID@0600,1400 [facility] Last Admin: 09/08/18 13:54 Dose: 100 mg Cefazolin Sodium (Ancef 1 Gm Premixed Ivpb -) 1 gm in 50 mls @ 100 mls/hr IVPB Q8H-IV [facility] Last Admin: 09/08/18 09:36 Dose: 100 mls/hr Insulin Aspart (Novolog Vial) 12 units SQ ACBK [facility]; Protocol Last Admin: 09/08/18 06:58 Dose: 12 units Insulin Aspart (Novolog Vial) 12 units SQ DAILY@1800 [facility]; Protocol Last Admin: 09/07/18 17:29 Dose: 12 units Insulin Aspart (Novolog Vial) 10 units SQ DAILY@1300 [facility]; Protocol Last Admin: 09/08/18 12:15 Dose: 10 units Insulin Detemir (Levemir Vial) 8 units SQ [facility] Last Admin: 09/07/18 21:52 Dose: Not Given Polyethylene Glycol (Miralax (For Daily Use) -) 17 gm PO DAILY [facility] Last Admin: 09/08/18 09:36 Dose: 17 gm Tamsulosin HCl (Flomax -) 0.4 mg PO DAILY@0830 [facility] Last Admin: 09/08/18 08:30 Dose: 0.4 mg Warfarin Sodium (Coumadin -) 2 mg PO DAILY@1800 [facility] Last Admin: 09/07/18 17:29 Dose: 2 mg - Objective Vital Signs: Vital Signs Temperature 98.2 F 09/08/18 14:10 Pulse Rate 71 09/08/18 14:10 Respiratory Rate 16 09/08/18 14:10 Blood Pressure 124/45 L 09/08/18 14:10 O2 Sat by Pulse Oximetry (%) 97 09/08/18 09:00 Constitutional: Yes: No Distress, Calm Eyes: Yes: Conjunctiva Clear HENT: Yes: Normocephalic Cardiovascular: Yes: Regular Rate and Rhythm Respiratory: Yes: Regular, CTA Bilaterally Gastrointestinal: Yes: Normal Bowel Sounds, Soft Musculoskeletal: Yes: Muscle Weakness Extremities: Yes: Erythema (b/l, R>L) Edema: Yes Edema: LLE: 1+, RLE: 1+ Neurological: Yes: Alert, Oriented Psychiatric: Yes: Alert, Oriented Labs: CBC, BMP 09/08/18 05:15 09/08/18 05:15 INR, PTT INR 2.04 (0.83-1.09) H 09/08/18 05:15 Microbiology 09/04/18 12:10 Blood - Peripheral Venous Blood Culture - Preliminary NO GROWTH OBTAINED AFTER 96 HOURS, INCUBATION TO CONTINUE FOR 1 DAYS. 09/04/18 12:12 Blood - Peripheral Venous Blood Culture - Preliminary NO GROWTH OBTAINED AFTER 96 HOURS, INCUBATION TO CONTINUE FOR 1 DAYS. Problem List - Problems (1) Acute CHF (congestive heart failure) Assessment/Plan: -cardiology on board -continue with Lasix IVP BID -daily weights -1L fluid restriction -cardiac monitoring d/c Code(s): I50.9 - HEART FAILURE, UNSPECIFIED Qualifiers: Heart failure type: unspecified Qualified Code(s): I50.9 - Heart failure, unspecified (2) BPH (benign prostatic hyperplasia) Assessment/Plan: -continue tamsulosin 0.4mg daily Code(s): N40.0 - BENIGN PROSTATIC HYPERPLASIA WITHOUT LOWER URINRY TRACT SYMP (3) Cellulitis Assessment/Plan: -ID on board -continue IV Cefazolin Code(s): L03.90 - CELLULITIS, UNSPECIFIED (4) Diabetes Assessment/Plan: -[facility] ACHS -levemir, novolog Code(s): E11.9 - TYPE 2 DIABETES MELLITUS WITHOUT COMPLICATIONS Qualifiers: Diabetes mellitus type: type 2 (5) Afib Assessment/Plan: -on coumadin 2mg daily -daily INR -INR level 2-3 Code(s): I48.91 - UNSPECIFIED ATRIAL FIBRILLATION (6) CKD (chronic kidney disease) Assessment/Plan: -renal on board -BUN/Cr 58/2.0 -monitor renal function Code(s): N18.9 - CHRONIC KIDNEY DISEASE, UNSPECIFIED Qualifiers: Chronic kidney disease stage: unspecified stage Qualified Code(s): N18.9 - Chronic kidney disease, unspecified Assessment/Plan see problem list
[2018-09-08] MEDS: WARFARIN NA 2 MG TABLET (UD) PO SCH (17:23)
[2018-09-08] MEDS: INSULIN (LEVEMIR) 100 UNITS/ML UNITS SQ SCH (21:35)
[2018-09-08] MEDS: ATORVASTATIN CA 10 MG TABLET (FP) PO SCH (21:35)
[2018-09-09] MEDS: CEFAZOLIN 1 GM/D5W 1 GM/50 ML BAG IVPB SCH ×3 (01:46→18:29)
[2018-09-09] MEDS ORDERED: FUROSEMIDE 100 MG/10 ML INJECTABLE VIAL IVPUSH SCH (06:00)
[2018-09-09] MEDS: FUROSEMIDE 40 MG/4 ML INJECTABLE VIAL IVPUSH SCH (06:21)
[2018-09-09] MEDS: INSULIN (NOVOLOG) ASPART 100 UNITS/ML 10ML VIAL SQ SCH ×3 (06:25→18:51)
[2018-09-09 08:08] LABS: HEMATOCRIT 31.2 % (35.4-49); HEMOGLOBIN 10.7 GM/dL (11.7-16.9); MCH 33.2 pg (25.7-33.7); MCHC 34.4 g/dl (32.0-35.9); MEAN CELL VOLUME 96.5 fl (80-96); MEAN PLT VOLUME 9.6 fl (7.5-11.1); PLATELET COUNT 82 K/MM3 (134-434); RBC 3.23 M/mm3 (4.00-5.60); RDW 14.1 % (11.9-15.9)
[2018-09-09 08:20] LABS: INR 1.8 (0.83-1.09); PROTHROMBIN TIME (PATIENT) 21.4 SEC (9.7-13.0)
[2018-09-09 08:40] LABS: ALBUMIN 2.8 g/dl (3.4-5.0); ALK PHOS 86 U/L (45-117); ANION GAP 4 MMOL/L (8-16); BILIRUBIN,TOTAL 0.5 mg/dL (0.2-1); BLOOD UREA NITROGEN 56 mg/dL (7-18); CALCIUM 8.5 mg/dL (8.5-10.1); CHLORIDE 96 mmol/L (98-107); CO2 36 mmol/L (21-32); CREATININE 2.2 mg/dL (0.55-1.3); GLUCOSE,RANDOM 255 mg/dL (74-106); POTASSIUM 4.4 mmol/L (3.5-5.1); SGOT/AST 20 U/L (15-37); SGPT/ALT 7 U/L (13-61); SODIUM 136 mmol/L (136-145); TOT PROT 5.5 g/dl (6.4-8.2)
[2018-09-09] MEDS: TAMSULOSIN HCL 0.4 MG CAP PO SCH (10:24)
[2018-09-09] MEDS: CARVEDILOL 25 MG TABLET (FP) PO SCH ×2 (10:25→22:48)
[2018-09-09] MEDS: POLYETHYLENE GLYCOL 3350 119 GM BTL PO SCH (10:26)
--- NOTE | 2018-09-09 10:56 | PN ---
Progress Note, Physician Chief Complaint: sob History of Present Illness: urine output remains good with iv lasix no sob, bendopnea anymore swelling persists, improved vs admit no cp, palpit no cigs - Current Medication List Current Medications: Active Medications Atorvastatin Calcium (Lipitor -) 10 mg PO HS [facility] Carvedilol (Coreg -) 25 mg PO BID [facility] Last Admin: 09/09/18 10:25 Dose: 25 mg Clonidine HCl (Catapres Tts Patch -) 0.2 mg TD Fr@1000 [facility] Furosemide (Lasix Injection -) 100 mg IVPUSH BID@0600,1400 [facility] Last Admin: 09/09/18 06:21 Dose: 100 mg Cefazolin Sodium (Ancef 1 Gm Premixed Ivpb -) 1 gm in 50 mls @ 100 mls/hr IVPB Q8H-IV [facility] Last Admin: 09/09/18 10:25 Dose: 100 mls/hr Insulin Aspart (Novolog Vial) 12 units SQ AC[facility]; Protocol Last Admin: 09/09/18 06:25 Dose: 12 units Insulin Aspart (Novolog Vial) 12 units SQ DAILY@1800 [facility]; Protocol Insulin Aspart (Novolog Vial) 10 units SQ DAILY@1300 [facility]; Protocol Insulin Detemir (Levemir Vial) [address] [facility] Polyethylene Glycol (Miralax (For Daily Use) -) 17 gm PO DAILY [facility] Last Admin: 09/09/18 10:26 Dose: 17 gm Tamsulosin HCl (Flomax -) 0.4 mg PO DAILY@0830 [facility] Last Admin: 09/09/18 10:24 Dose: 0.4 mg Warfarin Sodium (Coumadin -) 2 mg PO DAILY@1800 [facility] - Objective Vital Signs: Vital Signs Temperature 97.5 F L 09/08/18 21:06 Pulse Rate 67 09/08/18 21:06 Respiratory Rate 20 09/08/18 21:06 Blood Pressure 131/48 L 09/08/18 21:06 O2 Sat by Pulse Oximetry (%) 97 09/08/18 21:00 Constitutional: Yes: No Distress, Calm Eyes: No: Sclera Icterus HENT: No: Nasal Congestion Cardiovascular: Yes: Regular Rate and Rhythm, S1, S2, Other (PMI non diplaced). No: JVD, Gallop, Murmur Respiratory: Yes: CTA Bilaterally, Diminished (R base). No: Accessory Muscle Use, Rales, Wheezes Gastrointestinal: Yes: Normal Bowel Sounds, Soft. No: Tenderness Musculoskeletal: Yes: Other (No kyphosis) Extremities: No: Cold, Cyanosis Edema: Yes (2+ pretibs) Integumentary: No: Jaundice Neurological: Yes: Alert, Oriented (x3) Psychiatric: No: Agitated Labs: CBC, BMP 09/09/18 06:45 09/09/18 06:45 INR, PTT INR 1.80 (0.83-1.09) H 09/09/18 06:45 Assessment/Plan cxr: mild chf MIBI 07/05 (pers): no STs; small area apical isch and basal inferolateral wall; mild global LV hypo, EF 46% mibi 08/2018: lvef 66, no ischemia ecg: afib, rate ok, no ischemic changes Echo 10/07: 1. The left ventricular size is normal. 2. Overall left ventricular systolic function is normal with, an EF between 60 - 65 %. 3. LA pressure is uncertain. 4. No regional wall motion abnormalities were noted (basal inferolateral wall may be mildly hypokinetic). 5. The right ventricle is normal in size and function. 6. Left atrium is severely dilated by volume. 7. There is mild aortic regurgitation. 8. The mitral valve is normal in appearance, with no prolapse, flail leaflet, or tethered motion noted. 9. 2 separate MR jets are present: one directed anteriorly, the other central. The anterior jet hugs the antreior LA wall/interatrial septum and is not seen to wrap around the posterior LA wall. The visual appearance is of moderate mitral regurgitation, however the eccentric nature of the anterior jet may lead to underestimation of MR severity on color jet flow analysis. The peak mitral inflow velocity (0.7 m/sec) makes severe mitral regurgitation less likely. There is no systolic flow reversal present in the pulmonary vein. PISA hemisphere could not be measured. Estimated regurgitant volume by volumetric measurements yields and estimate of 35 cc. 10. Mild tricuspid regurgitation present. 11. Unable to estimate RVSP due to inadequate TR jet spectral doppler profile. echo 07/2018: nl lv/rv, lae, mild mr/tr/ar, nl rvsp a/p: 82 yo with h/o CAD s/p CABG, afib on coumadin CVA, hypertension, hyperlipidemia, IDDM, liver cancer(Chemo, 40% liver removed in 2008), who p/w chf. acute diastolic chf, functional (dynamic) MR, ++ LE edema with cellulitis (RLE) -on torsemide 100 at home w/o clinical response -receiving lasix 80 iv bid here--responding well -09/07: wt down to 162 from 170, has plateau'd the past two days. renal fxn improved. swelling remains significant. incr lasix to 100 iv BID -09/08: received one dose lasix 100 yest afternoon and then this am--reports signif incr UOP subjectively. wt unchanged today--PT DENIES HAVING BEEN WEIGHED. renal fxn stable. edema improved. same lasix -09/09: pt denies benig weighed today. brisk diuresis continues, signif leg swelling persists. renal fxn overall stable (trending up slightly). continue lasix 100 iv bid--will give additional 80mg IV dose x1 today. rpt bun/creat in AM. -recent echo and mibi unremarkable -his mitral regurg is very bp sensitive--bp control as doing pAFib: - remote paroxysmal AF, then persistent AF for past 2 mo - Rate controlled on coreg, continue same rx - on warfarin per inr - will consider elective DCCV once acute issues resolve CAD, S/P CABG '05: GAN TO LAD, SVG SEQUENTIAL TO DIAG-->OM; SVG TO RPDA: -cont home statin, at home, continue (not on ASA, given pt on warfarin) -recent mibi in office 09/10 no ischemia, nl LVEF. -no signs acs here. HTN: - h/o labile BPs (worse MR/CHF when bp's uncontrolled, low with orthostatic sx' s at times as well) - ARB held here for LUIS - bp controlled here - cont present med tx LUIS on CKD: -here with cardiorenal syndr initially -baseline creat 2.0-2.2 -renal fxn improved with diuresis, stable at baseline now le cellulitis: -remains on IV abx--per ID h/o hepatoma s/p surgery, chemo -monitored at [place], with stable recurrent dz in abdominal lymph node
--- NOTE | 2018-09-09 12:12 | PN ---
Progress Note, Physician Chief Complaint: The patient seen in her room, on his bed. Very upset about the noisy neighbor. No chest pain, No SOB. Maintains good urine output. History of Present Illness: 83 year old gentleman with hx of Afib on Coumadin, hypertension, hyperlipidemia , IDDM, Liver cancer s/p partial resection, CAD s/p CABG, LUIS on CKD who presented worsening LE edema and SOB and admitted for CHF exacerbation/fluid overload. - Current Medication List Current Medications: Active Medications Atorvastatin Calcium (Lipitor -) 10 mg PO HS [facility] Carvedilol (Coreg -) 25 mg PO BID [facility] Last Admin: 09/09/18 10:25 Dose: 25 mg Clonidine HCl (Catapres Tts Patch -) 0.2 mg TD Fr@1000 [facility] Furosemide (Lasix Injection -) 100 mg IVPUSH BID@0600,1400 [facility] Last Admin: 09/09/18 06:21 Dose: 100 mg Cefazolin Sodium (Ancef 1 Gm Premixed Ivpb -) 1 gm in 50 mls @ 100 mls/hr IVPB Q8H-IV [facility] Last Admin: 09/09/18 10:25 Dose: 100 mls/hr Insulin Aspart (Novolog Vial) 12 units SQ ACBK [facility]; Protocol Last Admin: 09/09/18 06:25 Dose: 12 units Insulin Aspart (Novolog Vial) 12 units SQ DAILY@1800 [facility]; Protocol Insulin Aspart (Novolog Vial) 10 units SQ DAILY@1300 [facility]; Protocol Insulin Detemir (Levemir Vial) 8 units SQ [facility] Polyethylene Glycol (Miralax (For Daily Use) -) 17 gm PO DAILY [facility] Last Admin: 09/09/18 10:26 Dose: 17 gm Tamsulosin HCl (Flomax -) 0.4 mg PO DAILY@0830 [facility] Last Admin: 09/09/18 10:24 Dose: 0.4 mg Warfarin Sodium (Coumadin -) 2 mg PO DAILY@1800 [facility] - Objective Vital Signs: Vital Signs Temperature 97.5 F L 09/08/18 21:06 Pulse Rate 67 09/08/18 21:06 Respiratory Rate 20 09/08/18 21:06 Blood Pressure 131/48 L 09/08/18 21:06 O2 Sat by Pulse Oximetry (%) 97 09/08/18 21:00 Constitutional: Yes: Anxious Eyes: Yes: Conjunctiva Clear HENT: Yes: Normocephalic Neck: Yes: Trachea Midline Cardiovascular: Yes: Regular Rate and Rhythm, Pulse Irregular, S1, S2 Respiratory: Yes: CTA Bilaterally, Diminished Gastrointestinal: Yes: Normal Bowel Sounds, Soft Genitourinary: No: Bladder Distention, CVA Tenderness - Left, CVA Tenderness - Right Musculoskeletal: Yes: Back Pain Edema: Yes Edema: LLE: 1+, RLE: 1+ Labs: CBC, BMP 09/09/18 06:45 09/09/18 06:45 INR, PTT INR 1.80 (0.83-1.09) H 09/09/18 06:45 Problem List - Problems (1) Acute CHF (congestive heart failure) Code(s): I50.9 - HEART FAILURE, UNSPECIFIED Qualifiers: Heart failure type: unspecified Qualified Code(s): I50.9 - Heart failure, unspecified (2) BPH (benign prostatic hyperplasia) Code(s): N40.0 - BENIGN PROSTATIC HYPERPLASIA WITHOUT LOWER URINRY TRACT SYMP (3) CKD (chronic kidney disease) Code(s): N18.9 - CHRONIC KIDNEY DISEASE, UNSPECIFIED Qualifiers: Chronic kidney disease stage: unspecified stage Qualified Code(s): N18.9 - Chronic kidney disease, unspecified (4) Cellulitis Code(s): L03.90 - CELLULITIS, UNSPECIFIED (5) Diabetes Code(s): E11.9 - TYPE 2 DIABETES MELLITUS WITHOUT COMPLICATIONS Qualifiers: Diabetes mellitus type: type 2 (6) Acute kidney failure Code(s): N17.9 - ACUTE KIDNEY FAILURE, UNSPECIFIED (7) Afib Code(s): I48.91 - UNSPECIFIED ATRIAL FIBRILLATION (8) Anemia Code(s): D64.9 - ANEMIA, UNSPECIFIED (9) Diabetes mellitus, insulin dependent (IDDM), uncontrolled Code(s): E10.65 - TYPE 1 DIABETES MELLITUS WITH HYPERGLYCEMIA (10) Myocardial ischemia Code(s): I25.9 - CHRONIC ISCHEMIC HEART DISEASE, UNSPECIFIED Assessment/Plan 83 year old gentleman with hx of Afib on Coumadin, hypertension, hyperlipidemia , IDDM, Liver cancer s/p partial resection, CAD s/p CABG, CKD (baseline Cr 1.7-2 ) who presented worsening LE edema and SOB and admitted for CHF exacerbation/ fluid overload. #CHF exacerbation/Fluid overload...Continue the loop diuretics. #LE cellulitis #CKD stage 4, with some acute superimposed LUIS. Most likely related to altered hemodynamics/ infection. #IDDM #Hypertension #Afib on A/C #Chronic Thrombocytopenia Will continue the Antibiotics as ordered. Continue IV Lasix as per Cardiology, titrate to oral when patient is euvolemic Trend renal function and electrolytes daily. Thank you. Aparna Mcghee MD
[2018-09-09] MEDS: FUROSEMIDE 40 MG/4 ML INJECTABLE VIAL IVPB SCH (14:15)
--- NOTE | 2018-09-09 15:29 | PN ---
Progress Note, Physician Chief Complaint: patient seen and examined - Current Medication List Current Medications: Active Medications Atorvastatin Calcium (Lipitor -) 10 mg PO HS [facility] Carvedilol (Coreg -) 25 mg PO BID [facility] Last Admin: 09/09/18 10:25 Dose: 25 mg Clonidine HCl (Catapres Tts Patch -) 0.2 mg TD Fr@1000 [facility] Furosemide (Lasix Injection -) 80 mg IVPUSH ONCE ONE Stop: 09/09/18 18:01 Furosemide (Lasix Injection -) 100 mg IVPB BID@0600,1400 [facility] Last Admin: 09/09/18 14:15 Dose: 100 mg Cefazolin Sodium (Ancef 1 Gm Premixed Ivpb -) 1 gm in 50 mls @ 100 mls/hr IVPB Q8H-IV [facility] Last Admin: 09/09/18 10:25 Dose: 100 mls/hr Insulin Aspart (Novolog Vial) 12 units SQ ACBK [facility]; Protocol Last Admin: 09/09/18 06:25 Dose: 12 units Insulin Aspart (Novolog Vial) 12 units SQ DAILY@1800 [facility]; Protocol Insulin Aspart (Novolog Vial) 10 units SQ DAILY@1300 [facility]; Protocol Last Admin: 09/09/18 13:45 Dose: 10 units Insulin Detemir (Levemir Vial) 8 units SQ HS [facility] Polyethylene Glycol (Miralax (For Daily Use) -) 17 gm PO DAILY [facility] Last Admin: 09/09/18 10:26 Dose: 17 gm Tamsulosin HCl (Flomax -) 0.4 mg PO DAILY@0830 [facility] Last Admin: 09/09/18 10:24 Dose: 0.4 mg Warfarin Sodium (Coumadin -) 2 mg PO DAILY@1800 [facility] - Objective Vital Signs: Vital Signs Temperature 98 F 09/09/18 14:43 Pulse Rate 74 09/09/18 14:43 Respiratory Rate 18 09/09/18 14:43 Blood Pressure 147/69 09/09/18 14:43 O2 Sat by Pulse Oximetry (%) 97 09/08/18 21:00 Constitutional: Yes: Calm Cardiovascular: Yes: S1, S2 Respiratory: Yes: CTA Bilaterally Gastrointestinal: Yes: Normal Bowel Sounds, Soft Extremities: Yes: Erythema Edema: Yes Labs: CBC, BMP 09/09/18 06:45 09/09/18 06:45 INR, PTT INR 1.80 (0.83-1.09) H 09/09/18 06:45 Problem List - Problems (1) Acute CHF (congestive heart failure) Assessment/Plan: lasix bid check venous doppler r/o dvt- no dvts daily weights cardiology on board weight is down from 164 to 161 Code(s): I50.9 - HEART FAILURE, UNSPECIFIED Qualifiers: Heart failure type: unspecified Qualified Code(s): I50.9 - Heart failure, unspecified (2) Afib Assessment/Plan: rate control coumadin restart INR Is 1.8 check inr in AM Code(s): I48.91 - UNSPECIFIED ATRIAL FIBRILLATION (3) Cellulitis Assessment/Plan: right leg ancef Microbiology 09/05/18 15:00 Nares - Mrsa Screen - Right MRSA Screen - Final NO MRSA ISOLATED 09/05/18 15:00 Nares - Mrsa Screen - Left MRSA Screen - Final NO MRSA ISOLATED 09/04/18 15:39 Urine - Urine - Catheterized Urine Culture - Final NO GROWTH OBTAINED 09/04/18 12:12 Blood - Peripheral Venous Blood Culture - Preliminary NO GROWTH OBTAINED AFTER 24 HOURS, INCUBATION TO CONTINUE FOR 4 DAYS. 09/04/18 12:10 Blood - Peripheral Venous Blood Culture - Preliminary NO GROWTH OBTAINED AFTER 24 HOURS, INCUBATION TO CONTINUE FOR 4 DAYS. Code(s): L03.90 - CELLULITIS, UNSPECIFIED (4) BPH (benign prostatic hyperplasia) Assessment/Plan: flomax Code(s): N40.0 - BENIGN PROSTATIC HYPERPLASIA WITHOUT LOWER URINRY TRACT SYMP (5) Diabetes Assessment/Plan: sliding scale hgba1c insulin lantus 8 units at night novolog 12 units after BK If bgm >100 10 unts after lunch and 12 at night Code(s): E11.9 - TYPE 2 DIABETES MELLITUS WITHOUT COMPLICATIONS Qualifiers: Diabetes mellitus type: type 2
[2018-09-09] MEDS ORDERED: FUROSEMIDE 40 MG/4 ML INJECTABLE VIAL IVPUSH ONE (18:00)
[2018-09-09] MEDS: WARFARIN NA 2 MG TABLET (UD) PO SCH (18:29)
[2018-09-09] MEDS ORDERED: PT OWN MED DRAWER 7, Y5N ONE (19:11)
[2018-09-09] MEDS: MUPIROCIN CA 2% TOPICAL CREAM 15 GM TUBE TP SCH (22:48)
[2018-09-09] MEDS: ATORVASTATIN CA 10 MG TABLET (FP) PO SCH (22:48)
[2018-09-09] MEDS: INSULIN (LEVEMIR) 100 UNITS/ML UNITS SQ SCH (22:49)
[2018-09-10] MEDS: CEFAZOLIN 1 GM/D5W 1 GM/50 ML BAG IVPB SCH ×3 (02:47→18:45)
[2018-09-10] MEDS: FUROSEMIDE 40 MG/4 ML INJECTABLE VIAL IVPB SCH ×2 (06:07→14:30)
[2018-09-10] MEDS: INSULIN (NOVOLOG) ASPART 100 UNITS/ML 10ML VIAL SQ SCH ×4 (06:07→17:31)
[2018-09-10 07:32] LABS: ALK PHOS 85 U/L (45-117); ANION GAP 5 MMOL/L (8-16); BILIRUBIN,TOTAL 0.7 mg/dL (0.2-1); BLOOD UREA NITROGEN 50 mg/dL (7-18); CALCIUM 8.4 mg/dL (8.5-10.1); CHLORIDE 98 mmol/L (98-107); CO2 36 mmol/L (21-32); CREATININE 1.9 mg/dL (0.55-1.3); GLUCOSE,RANDOM 101 mg/dL (74-106); INR 1.8 (0.83-1.09); POTASSIUM 4.1 mmol/L (3.5-5.1); PROTHROMBIN TIME (PATIENT) 21.4 SEC (9.7-13.0); SGOT/AST 20 U/L (15-37); SGPT/ALT 7 U/L (13-61); SODIUM 139 mmol/L (136-145); TOT PROT 5.7 g/dl (6.4-8.2)
[2018-09-10] MEDS: TAMSULOSIN HCL 0.4 MG CAP PO SCH (08:22)
--- NOTE | 2018-09-10 09:12 | PN ---
Progress Note, Physician - Current Medication List Current Medications: Active Medications Atorvastatin Calcium (Lipitor -) 10 mg PO HS [facility] Last Admin: 09/09/18 22:48 Dose: 10 mg Carvedilol (Coreg -) 25 mg PO BID [facility] Last Admin: 09/09/18 22:48 Dose: 25 mg Clonidine HCl (Catapres Tts Patch -) 0.2 mg TD Fr@1000 [facility] Furosemide (Lasix Injection -) 100 mg IVPB BID@0600,1400 [facility] Last Admin: 09/10/18 06:07 Dose: 100 mg Cefazolin Sodium (Ancef 1 Gm Premixed Ivpb -) 1 gm in 50 mls @ 100 mls/hr IVPB Q8H-IV [facility] Last Admin: 09/10/18 02:47 Dose: 100 mls/hr Insulin Aspart (Novolog Vial) 12 units SQ ACBK [facility]; Protocol Last Admin: 09/10/18 06:07 Dose: Not Given Insulin Aspart (Novolog Vial) 12 units SQ DAILY@1800 [facility]; Protocol Last Admin: 09/09/18 18:51 Dose: 12 units Insulin Aspart (Novolog Vial) 10 units SQ DAILY@1300 [facility]; Protocol Last Admin: 09/09/18 13:45 Dose: 10 units Insulin Detemir (Levemir Vial) 8 units SQ HS [facility] Last Admin: 09/09/18 22:49 Dose: 8 units Mupirocin (Bactroban 2% Cream -) 1 applic TP BID [facility] Last Admin: 09/09/18 22:48 Dose: 1 applic Polyethylene Glycol (Miralax (For Daily Use) -) 17 gm PO DAILY [facility] Last Admin: 09/09/18 10:26 Dose: 17 gm Tamsulosin HCl (Flomax -) 0.4 mg PO DAILY@0830 [facility] Last Admin: 09/10/18 08:22 Dose: 0.4 mg Warfarin Sodium (Coumadin -) 2 mg PO DAILY@1800 [facility] Last Admin: 09/09/18 18:29 Dose: 2 mg - Objective Vital Signs: Vital Signs Temperature 97.5 F L 09/10/18 06:00 Pulse Rate 69 09/10/18 06:00 Respiratory Rate 20 09/10/18 06:00 Blood Pressure 155/69 09/10/18 06:00 O2 Sat by Pulse Oximetry (%) 98 09/09/18 21:00 Cardiovascular: Yes: S1, S2 Respiratory: Yes: Regular, CTA Bilaterally Gastrointestinal: Yes: Normal Bowel Sounds, Soft Labs: CBC, BMP 09/09/18 06:45 09/10/18 06:00 INR, PTT INR 1.80 (0.83-1.09) H 09/10/18 06:00 Assessment/Plan - Problems (1) Acute CHF (congestive heart failure) Assessment/Plan: lasix bid check venous doppler r/o dvt- no dvts daily weights cardiology on board weight is down from 164 to 161 Code(s): I50.9 - HEART FAILURE, UNSPECIFIED Qualifiers: Heart failure type: unspecified Qualified Code(s): I50.9 - Heart failure, unspecified (2) Afib Assessment/Plan: rate control coumadin restart INR Is 1.8 check inr in AM Code(s): I48.91 - UNSPECIFIED ATRIAL FIBRILLATION (3) Cellulitis Assessment/Plan: right leg ancef Microbiology 09/05/18 15:00 Nares - Mrsa Screen - Right MRSA Screen - Final NO MRSA ISOLATED 09/05/18 15:00 Nares - Mrsa Screen - Left MRSA Screen - Final NO MRSA ISOLATED 09/04/18 15:39 Urine - Urine - Catheterized Urine Culture - Final NO GROWTH OBTAINED 09/04/18 12:12 Blood - Peripheral Venous Blood Culture - Preliminary NO GROWTH OBTAINED AFTER 24 HOURS, INCUBATION TO CONTINUE FOR 4 DAYS. 09/04/18 12:10 Blood - Peripheral Venous Blood Culture - Preliminary NO GROWTH OBTAINED AFTER 24 HOURS, INCUBATION TO CONTINUE FOR 4 DAYS. Code(s): L03.90 - CELLULITIS, UNSPECIFIED (4) BPH (benign prostatic hyperplasia) Assessment/Plan: flomax Code(s): N40.0 - BENIGN PROSTATIC HYPERPLASIA WITHOUT LOWER URINRY TRACT SYMP (5) Diabetes Assessment/Plan: sliding scale hgba1c insulin lantus 8 units at night novolog 12 units after BK If bgm >100 10 unts after lunch and 12 at night Code(s): E11.9 - TYPE 2 DIABETES MELLITUS WITHOUT COMPLICATIONS Qualifiers: Diabetes mellitus type: type 2
[2018-09-10] MEDS: CARVEDILOL 25 MG TABLET (FP) PO SCH ×2 (09:50→22:09)
[2018-09-10] MEDS: POLYETHYLENE GLYCOL 3350 119 GM BTL PO SCH (09:51)
--- NOTE | 2018-09-10 10:48 | PN ---
Progress Note, Physician Chief Complaint: The patient seen in her room, on his bed. The patient is comfortable. Offers no new complaints. No chest pain, No SOB. Maintains good urine output. LE swelling and redness persists. History of Present Illness: 83 year old gentleman with hx of Afib on Coumadin, hypertension, hyperlipidemia , IDDM, Liver cancer s/p partial resection, CAD s/p CABG, LUIS on CKD who presented worsening LE edema and SOB and admitted for CHF exacerbation/fluid overload. There is redness of the LE. - Current Medication List Current Medications: Active Medications Atorvastatin Calcium (Lipitor -) 10 mg PO HS [facility] Last Admin: 09/09/18 22:48 Dose: 10 mg Carvedilol (Coreg -) 25 mg PO BID [facility] Last Admin: 09/10/18 09:50 Dose: 25 mg Clonidine HCl (Catapres Tts Patch -) 0.2 mg TD Fr@1000 [facility] Furosemide (Lasix Injection -) 100 mg IVPB BID@0600,1400 [facility] Last Admin: 09/10/18 06:07 Dose: 100 mg Cefazolin Sodium (Ancef 1 Gm Premixed Ivpb -) 1 gm in 50 mls @ 100 mls/hr IVPB Q8H-IV [facility] Last Admin: 09/10/18 09:50 Dose: 100 mls/hr Insulin Aspart (Novolog Vial) 12 units SQ [facility]; Protocol Last Admin: 09/10/18 06:07 Dose: Not Given Insulin Aspart (Novolog Vial) 12 units SQ DAILY@1800 [facility]; Protocol Last Admin: 09/09/18 18:51 Dose: 12 units Insulin Aspart (Novolog Vial) 10 units SQ DAILY@1300 [facility]; Protocol Last Admin: 09/09/18 13:45 Dose: 10 units Insulin Detemir (Levemir Vial) 8 units SQ [facility] Last Admin: 09/09/18 22:49 Dose: 8 units Mupirocin (Bactroban 2% Cream -) 1 applic TP BID [facility] Last Admin: 09/09/18 22:48 Dose: 1 applic Polyethylene Glycol (Miralax (For Daily Use) -) 17 gm PO DAILY [facility] Last Admin: 09/10/18 09:51 Dose: 17 gm Tamsulosin HCl (Flomax -) 0.4 mg PO DAILY@0830 [facility] Last Admin: 09/10/18 08:22 Dose: 0.4 mg Warfarin Sodium (Coumadin -) 2 mg PO DAILY@1800 [facility] Last Admin: 09/09/18 18:29 Dose: 2 mg - Objective Vital Signs: Vital Signs Temperature 98.1 F 09/10/18 10:06 Pulse Rate 55 L 09/10/18 10:06 Respiratory Rate 24 H 09/10/18 10:06 Blood Pressure 113/66 09/10/18 10:06 O2 Sat by Pulse Oximetry (%) 98 09/09/18 21:00 Constitutional: Yes: Calm Eyes: Yes: Conjunctiva Clear HENT: Yes: Atraumatic Neck: Yes: Trachea Midline Cardiovascular: Yes: Tachycardia, Pulse Irregular, S1, S2 Respiratory: Yes: Diminished, Rales Gastrointestinal: Yes: Normal Bowel Sounds, Soft Edema: Yes Edema: LLE: 1+, RLE: 1+ Neurological: Yes: Alert, Oriented Labs: CBC, BMP 09/09/18 06:45 09/10/18 06:00 INR, PTT INR 1.80 (0.83-1.09) H 09/10/18 06:00 Problem List - Problems (1) Acute CHF (congestive heart failure) Code(s): I50.9 - HEART FAILURE, UNSPECIFIED Qualifiers: Heart failure type: unspecified Qualified Code(s): I50.9 - Heart failure, unspecified (2) BPH (benign prostatic hyperplasia) Code(s): N40.0 - BENIGN PROSTATIC HYPERPLASIA WITHOUT LOWER URINRY TRACT SYMP (3) CKD (chronic kidney disease) Code(s): N18.9 - CHRONIC KIDNEY DISEASE, UNSPECIFIED Qualifiers: Chronic kidney disease stage: unspecified stage Qualified Code(s): N18.9 - Chronic kidney disease, unspecified (4) Cellulitis Code(s): L03.90 - CELLULITIS, UNSPECIFIED (5) Diabetes Code(s): E11.9 - TYPE 2 DIABETES MELLITUS WITHOUT COMPLICATIONS Qualifiers: Diabetes mellitus type: type 2 (6) Acute kidney failure Code(s): N17.9 - ACUTE KIDNEY FAILURE, UNSPECIFIED (7) Afib Code(s): I48.91 - UNSPECIFIED ATRIAL FIBRILLATION (8) Anemia Code(s): D64.9 - ANEMIA, UNSPECIFIED (9) Diabetes mellitus, insulin dependent (IDDM), uncontrolled Code(s): E10.65 - TYPE 1 DIABETES MELLITUS WITH HYPERGLYCEMIA (10) Myocardial ischemia Code(s): I25.9 - CHRONIC ISCHEMIC HEART DISEASE, UNSPECIFIED Assessment/Plan 83 year old gentleman with hx of Afib on Coumadin, hypertension, hyperlipidemia , IDDM, Liver cancer s/p partial resection, CAD s/p CABG, CKD (baseline Cr 1.7-2 ) who presented worsening LE edema and SOB and admitted for CHF exacerbation/ fluid overload. #CHF exacerbation/Fluid overload...Continue the loop diuretics. #LE cellulitis ...On IV Abx. #CKD stage 4, with some acute superimposed LUIS. Most likely related to altered hemodynamics/ infection. Some improvent in azotemia is noted. #IDDM #Hypertension #Afib on A/C #Chronic Thrombocytopenia Will continue the Antibiotics as ordered. Continue IV Lasix as per Cardiology, titrate to oral when patient is euvolemic Trend renal function and electrolytes periodically Thank you. Aparna Mcghee MD
--- NOTE | 2018-09-10 11:37 | PN ---
Progress Note (short form) - Note Progress Note: s: sob resolved, walked today in the [place] without symptoms. no chest pain, palps , dizziness, lightheadedness. Current Medications Atorvastatin Calcium (Lipitor -) 10 mg PO HS [facility] Last Admin: 09/09/18 22:48 Dose: 10 mg Carvedilol (Coreg -) 25 mg PO BID [facility] Last Admin: 09/10/18 09:50 Dose: 25 mg Clonidine HCl (Catapres Tts Patch -) 0.2 mg TD Fr@1000 [facility] Furosemide (Lasix Injection -) 100 mg IVPB BID@0600,1400 [facility] Last Admin: 09/10/18 06:07 Dose: 100 mg Cefazolin Sodium (Ancef 1 Gm Premixed Ivpb -) 1 gm in 50 mls @ 100 mls/hr IVPB Q8H-IV [facility] Last Admin: 09/10/18 09:50 Dose: 100 mls/hr Insulin Aspart (Novolog Vial) 12 units SQ ACBK [facility]; Protocol Last Admin: 09/10/18 06:07 Dose: Not Given Insulin Aspart (Novolog Vial) 12 units SQ DAILY@1800 [facility]; Protocol Last Admin: 09/09/18 18:51 Dose: 12 units Insulin Aspart (Novolog Vial) 10 units SQ DAILY@1300 [facility]; Protocol Last Admin: 09/09/18 13:45 Dose: 10 units Insulin Detemir (Levemir Vial) 8 units SQ [facility] Last Admin: 09/09/18 22:49 Dose: 8 units Mupirocin (Bactroban 2% Cream -) 1 applic TP BID [facility] Last Admin: 09/09/18 22:48 Dose: 1 applic Polyethylene Glycol (Miralax (For Daily Use) -) 17 gm PO DAILY [facility] Last Admin: 09/10/18 09:51 Dose: 17 gm Tamsulosin HCl (Flomax -) 0.4 mg PO DAILY@0830 [facility] Last Admin: 09/10/18 08:22 Dose: 0.4 mg Warfarin Sodium (Coumadin -) 2 mg PO DAILY@1800 [facility] Last Admin: 09/09/18 18:29 Dose: 2 mg Vital Signs Period Temp Pulse Resp BP Sys/Gregory Pulse Ox Last 24 Hr 97.3 F-98.1 F 55-82 18-24 113-155/56-69 98 Constitutional: Yes: No Distress, Calm Eyes: No: Sclera Icterus HENT: No: Nasal Congestion Cardiovascular: Yes: Regular Rate and Rhythm, S1, S2, Other (PMI non diplaced). No: JVD, Gallop, Murmur Respiratory: Yes: CTA Bilaterally, Diminished (R base). No: Accessory Muscle Use, Rales, Wheezes Gastrointestinal: Yes: Normal Bowel Sounds, Soft. No: Tenderness Musculoskeletal: Yes: Other (No kyphosis) Extremities: No: Cold, Cyanosis Edema: Yes (1+ pretibs) Integumentary: No: Jaundice Neurological: Yes: Alert, Oriented (x3) Psychiatric: No: Agitated Assessment/Plan cxr: mild chf MIBI 07/05 (pers): no STs; small area apical isch and basal inferolateral wall; mild global LV hypo, EF 46% mibi 08/2018: lvef 66, no ischemia ecg: afib, rate ok, no ischemic changes Echo 10/07: 1. The left ventricular size is normal. 2. Overall left ventricular systolic function is normal with, an EF between 60 - 65 %. 3. LA pressure is uncertain. 4. No regional wall motion abnormalities were noted (basal inferolateral wall may be mildly hypokinetic). 5. The right ventricle is normal in size and function. 6. Left atrium is severely dilated by volume. 7. There is mild aortic regurgitation. 8. The mitral valve is normal in appearance, with no prolapse, flail leaflet, or tethered motion noted. 9. 2 separate MR jets are present: one directed anteriorly, the other central. The anterior jet hugs the antreior LA wall/interatrial septum and is not seen to wrap around the posterior LA wall. The visual appearance is of moderate mitral regurgitation, however the eccentric nature of the anterior jet may lead to underestimation of MR severity on color jet flow analysis. The peak mitral inflow velocity (0.7 m/sec) makes severe mitral regurgitation less likely. There is no systolic flow reversal present in the pulmonary vein. PISA hemisphere could not be measured. Estimated regurgitant volume by volumetric measurements yields and estimate of 35 cc. 10. Mild tricuspid regurgitation present. 11. Unable to estimate RVSP due to inadequate TR jet spectral doppler profile. echo 07/2018: nl lv/rv, lae, mild mr/tr/ar, nl rvsp a/p: 82 yo with h/o CAD s/p CABG, afib on coumadin CVA, hypertension, hyperlipidemia, IDDM, liver cancer(Chemo, 40% liver removed in 2008), who p/w chf. acute diastolic chf, functional (dynamic) MR, ++ LE edema with cellulitis (RLE) -on torsemide 100 at home w/o clinical response -receiving lasix 80 iv bid here--responding well -09/07: wt down to 162 from 170, has plateau'd the past two days. renal fxn improved. swelling remains significant. incr lasix to 100 iv BID -09/08: received one dose lasix 100 yest afternoon and then this am--reports signif incr UOP subjectively. wt unchanged today--PT DENIES HAVING BEEN WEIGHED. renal fxn stable. edema improved. same lasix -09/09: pt denies benig weighed today. brisk diuresis continues, signif leg swelling persists. renal fxn overall stable (trending up slightly). continue lasix 100 iv bid--will give additional 80mg IV dose x1 today. rpt bun/creat in AM. -recent echo and mibi unremarkable -his mitral regurg is very bp sensitive--bp control as doing - 09/10: wt down 157 (near baseline), Cr 2.2->1.9, edema/sob improved. continue lasix 100 mg IV PM dose today and monitor Cr/volume status in AM. may transition to torsemide tomorrow pAFib: - remote paroxysmal AF, then persistent AF for past 2 mo - Rate controlled on coreg, continue same rx - on warfarin per inr - will consider elective DCCV once acute issues resolve CAD, S/P CABG '05: GAN TO LAD, SVG SEQUENTIAL TO DIAG-->OM; SVG TO RPDA: -cont home statin, at home, continue (not on ASA, given pt on warfarin) -recent mibi in office 09/10 no ischemia, nl LVEF. -no signs acs here. 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
[2018-09-10] MEDS ORDERED: INSULIN (NOVOLOG) ASPART 100 UNITS/ML 10ML VIAL SQ ONE (14:59)
[2018-09-10] MEDS: MUPIROCIN CA 2% TOPICAL CREAM 15 GM TUBE TP SCH ×2 (16:15→22:08)
[2018-09-10 18:11] LABS: INR 1.74 (0.83-1.09); PROTHROMBIN TIME (PATIENT) 20.6 SEC (9.7-13.0)
[2018-09-10] MEDS: WARFARIN NA 2 MG TABLET (UD) PO SCH (18:47)
[2018-09-10] MEDS: INSULIN (LEVEMIR) 100 UNITS/ML UNITS SQ SCH (22:09)
[2018-09-10] MEDS: ATORVASTATIN CA 10 MG TABLET (FP) PO SCH (22:09)
[2018-09-11] MEDS: CEFAZOLIN 1 GM/D5W 1 GM/50 ML BAG IVPB SCH ×2 (02:50→09:16)
[2018-09-11] MEDS: INSULIN (NOVOLOG) ASPART 100 UNITS/ML 10ML VIAL SQ SCH ×2 (07:01→14:17)
[2018-09-11 07:30] LABS: INR 1.82 (0.83-1.09); PROTHROMBIN TIME (PATIENT) 21.6 SEC (9.7-13.0)
[2018-09-11 07:49] LABS: ALBUMIN 2.8 g/dl (3.4-5.0); ALK PHOS 83 U/L (45-117); ANION GAP 5 MMOL/L (8-16); BILIRUBIN,TOTAL 0.5 mg/dL (0.2-1); BLOOD UREA NITROGEN 55 mg/dL (7-18); CALCIUM 8.3 mg/dL (8.5-10.1); CHLORIDE 95 mmol/L (98-107); CO2 34 mmol/L (21-32); GLUCOSE,RANDOM 252 mg/dL (74-106); POTASSIUM 4.4 mmol/L (3.5-5.1); SGOT/AST 16 U/L (15-37); SGPT/ALT 6 U/L (13-61); SODIUM 135 mmol/L (136-145); TOT PROT 5.4 g/dl (6.4-8.2)
[2018-09-11] MEDS: TAMSULOSIN HCL 0.4 MG CAP PO SCH (09:16)
[2018-09-11] MEDS: POLYETHYLENE GLYCOL 3350 119 GM BTL PO SCH (09:16)
[2018-09-11] MEDS: CARVEDILOL 25 MG TABLET (FP) PO SCH ×2 (09:16→23:23)
[2018-09-11] MEDS: MUPIROCIN CA 2% TOPICAL CREAM 15 GM TUBE TP SCH ×2 (09:20→23:24)
[2018-09-11 11:13] LABS: BASO % 0.7 % (0-2.0); EOS % 3.5 % (0-4.5); HEMATOCRIT 30.6 % (35.4-49); HEMOGLOBIN 10.6 GM/dL (11.7-16.9); LYMPH % 24.1 % (8-40); MCH 33.2 pg (25.7-33.7); MCHC 34.7 g/dl (32.0-35.9); MEAN CELL VOLUME 95.6 fl (80-96); MONO % 12.3 % (3.8-10.2); NEUT % 59.4 % (42.8-82.8); PLATELET COUNT 84 K/MM3 (134-434); RDW 14.2 % (11.9-15.9); WHITE BLOOD COUNT 4.3 K/mm3 (4.0-10.0)
--- NOTE | 2018-09-11 11:27 | PN ---
Progress Note, Physician Chief Complaint: Lower extremity cellulitis History of Present Illness: NAD sitting at the edge of the bed feels a lot better BLLE swelling and erythema improved wants to go home - Current Medication List Current Medications: Active Medications Atorvastatin Calcium (Lipitor -) 10 mg PO HS [facility] Last Admin: 09/10/18 22:09 Dose: 10 mg Carvedilol (Coreg -) 25 mg PO BID [facility] Last Admin: 09/11/18 09:16 Dose: 25 mg Clonidine HCl (Catapres Tts Patch -) 0.2 mg TD Fr@1000 [facility] Furosemide (Lasix -) 80 mg PO BID@0600,1400 [facility] Cefazolin Sodium (Ancef 1 Gm Premixed Ivpb -) 1 gm in 50 mls @ 100 mls/hr IVPB Q8H-IV [facility] Last Admin: 09/11/18 09:16 Dose: 100 mls/hr Insulin Aspart (Novolog Vial) 12 units SQ ACBK [facility]; Protocol Last Admin: 09/11/18 07:01 Dose: 12 units Insulin Aspart (Novolog Vial) 12 units SQ DAILY@1800 [facility]; Protocol Last Admin: 09/10/18 17:31 Dose: 12 units Insulin Aspart (Novolog Vial) 10 units SQ DAILY@1300 [facility]; Protocol Last Admin: 09/10/18 12:29 Dose: 10 units Insulin Detemir (Levemir Vial) 8 units SQ [facility] Last Admin: 09/10/18 22:09 Dose: 8 units Mupirocin (Bactroban 2% Cream -) 1 applic TP BID [facility] Last Admin: 09/11/18 09:20 Dose: 1 applic Polyethylene Glycol (Miralax (For Daily Use) -) 17 gm PO DAILY [facility] Last Admin: 09/11/18 09:16 Dose: 17 gm Tamsulosin HCl (Flomax -) 0.4 mg PO DAILY@0830 [facility] Last Admin: 09/11/18 09:16 Dose: 0.4 mg Warfarin Sodium (Coumadin -) 3 mg PO [facility] Warfarin Sodium (Coumadin -) 2 [facility] - Objective Vital Signs: Vital Signs Temperature 98 F 09/11/18 09:22 Pulse Rate 79 09/11/18 09:22 Respiratory Rate 20 09/11/18 09:22 Blood Pressure 134/59 L 09/11/18 09:22 O2 Sat by Pulse Oximetry (%) 98 02/20/19 09:00 Constitutional: Yes: Well Nourished, No Distress, Calm Cardiovascular: Yes: Regular Rate and Rhythm Respiratory: Yes: Regular Gastrointestinal: Yes: Normal Bowel Sounds, Soft Genitourinary: Yes: WNL Musculoskeletal: Yes: WNL, Muscle Weakness Extremities: Yes: WNL Edema: Yes Edema: LLE: 1+, RLE: 1+ Peripheral Pulses WNL: Yes Neurological: Yes: Alert, Oriented Psychiatric: Yes: Alert, Oriented Labs: CBC, BMP 09/11/18 06:00 INR, PTT INR 1.82 (0.83-1.09) H 09/11/18 06:00 Problem List - Problems (1) Acute CHF (congestive heart failure) Assessment/Plan: Seen by cardiology -Furosemide 80 mg po bid -Low sodium diet Code(s): I50.9 - HEART FAILURE, UNSPECIFIED Qualifiers: Heart failure type: unspecified Qualified Code(s): I50.9 - Heart failure, unspecified (2) CKD (chronic kidney disease) Assessment/Plan: -Seen by nephrology -Cr stable at this time -monitor trend outpatient Code(s): N18.9 - CHRONIC KIDNEY DISEASE, UNSPECIFIED Qualifiers: Chronic kidney disease stage: unspecified stage Qualified Code(s): N18.9 - Chronic kidney disease, unspecified (3) Cellulitis Assessment/Plan: -Received 7 days of IV rocephin -Seen by ID -switched to po keflex for another 72 hours Code(s): L03.90 - CELLULITIS, UNSPECIFIED (4) Diabetes Assessment/Plan: -BGM AC HS -Diabetic/low sodium diet -Levemir 8 units QHS -Novolog sliding scale Code(s): E11.9 - TYPE 2 DIABETES MELLITUS WITHOUT COMPLICATIONS Qualifiers: Diabetes mellitus type: type 2 (5) Afib Assessment/Plan: -rate controlled -On warfarin -D/C on warfarin 3 mg wed and 2 mg all other days -repeat INR in 1 week outpatient Code(s): I48.91 - UNSPECIFIED ATRIAL FIBRILLATION Assessment/Plan see problem list Physical therapy
--- NOTE | 2018-09-11 12:00 | PN ---
Progress Note (short form) - Note Progress Note: s: no sob, chest pain, palps, dizziness, lightheadedness. Current Medications Atorvastatin Calcium (Lipitor -) 10 mg PO HS [facility] Last Admin: 09/10/18 22:09 Dose: 10 mg Carvedilol (Coreg -) 25 mg PO BID [facility] Last Admin: 09/11/18 09:16 Dose: 25 mg Clonidine HCl (Catapres Tts Patch -) 0.2 mg TD Fr@1000 [facility] Furosemide (Lasix -) 80 mg PO BID@0600,1400 [facility] Cefazolin Sodium (Ancef 1 Gm Premixed Ivpb -) 1 gm in 50 mls @ 100 mls/hr IVPB Q8H-IV [facility] Last Admin: 09/11/18 09:16 Dose: 100 mls/hr Insulin Aspart (Novolog Vial) 12 units SQ ACBK [facility]; Protocol Last Admin: 09/11/18 07:01 Dose: 12 units Insulin Aspart (Novolog Vial) 12 units SQ DAILY@1800 [facility]; Protocol Last Admin: 09/10/18 17:31 Dose: 12 units Insulin Aspart (Novolog Vial) 10 units SQ DAILY@1300 [facility]; Protocol Last Admin: 09/10/18 12:29 Dose: 10 units Insulin Detemir (Levemir Vial) 8 units SQ HS [facility] Last Admin: 09/10/18 22:09 Dose: 8 units Mupirocin (Bactroban 2% Cream -) 1 applic TP BID [facility] Last Admin: 09/11/18 09:20 Dose: 1 applic Polyethylene Glycol (Miralax (For Daily Use) -) 17 gm PO DAILY [facility] Last Admin: 09/11/18 09:16 Dose: 17 gm Tamsulosin HCl (Flomax -) 0.4 mg PO DAILY@0830 [facility] Last Admin: 09/11/18 09:16 Dose: 0.4 mg Warfarin Sodium (Coumadin -) 3 mg PO We@1800 [facility] Warfarin Sodium (Coumadin -) 2 mg PO SUMOTUTHFRSA [facility] Vital Signs Period Temp Pulse Resp BP Sys/Gregory Pulse Ox Last 24 Hr 97 F-98.0 F 56-79 20-20 122-143/50-79 98-98 Constitutional: Yes: No Distress, Calm Eyes: No: Sclera Icterus HENT: No: Nasal Congestion Cardiovascular: Yes: Regular Rate and Rhythm, S1, S2, Other (PMI non diplaced). No: JVD, Gallop, Murmur Respiratory: Yes: CTA Bilaterally. No: Accessory Muscle Use, Rales, Wheezes Gastrointestinal: Yes: Normal Bowel Sounds, Soft. No: Tenderness Musculoskeletal: Yes: Other (No kyphosis) Extremities: No: Cold, Cyanosis Edema: Yes (1+ pretibs) Integumentary: No: Jaundice Neurological: Yes: Alert, Oriented (x3) Psychiatric: No: Agitated Assessment/Plan cxr: mild chf MIBI 07/05 (pers): no STs; small area apical isch and basal inferolateral wall; mild global LV hypo, EF 46% mibi 08/2018: lvef 66, no ischemia ecg: afib, rate ok, no ischemic changes Echo 10/07: 1. The left ventricular size is normal. 2. Overall left ventricular systolic function is normal with, an EF between 60 - 65 %. 3. LA pressure is uncertain. 4. No regional wall motion abnormalities were noted (basal inferolateral wall may be mildly hypokinetic). 5. The right ventricle is normal in size and function. 6. Left atrium is severely dilated by volume. 7. There is mild aortic regurgitation. 8. The mitral valve is normal in appearance, with no prolapse, flail leaflet, or tethered motion noted. 9. 2 separate MR jets are present: one directed anteriorly, the other central. The anterior jet hugs the antreior LA wall/interatrial septum and is not seen to wrap around the posterior LA wall. The visual appearance is of moderate mitral regurgitation, however the eccentric nature of the anterior jet may lead to underestimation of MR severity on color jet flow analysis. The peak mitral inflow velocity (0.7 m/sec) makes severe mitral regurgitation less likely. There is no systolic flow reversal present in the pulmonary vein. PISA hemisphere could not be measured. Estimated regurgitant volume by volumetric measurements yields and estimate of 35 cc. 10. Mild tricuspid regurgitation present. 11. Unable to estimate RVSP due to inadequate TR jet spectral doppler profile. echo 07/2018: nl lv/rv, lae, mild mr/tr/ar, nl rvsp a/p: 82 yo with h/o CAD s/p CABG, afib on coumadin CVA, hypertension, hyperlipidemia, IDDM, liver cancer(Chemo, 40% liver removed in 2008), who p/w chf. acute diastolic chf, functional (dynamic) MR, ++ LE edema with cellulitis (RLE) -on torsemide 100 at home w/o clinical response -receiving lasix 80 iv bid here--responding well -09/07: wt down to 162 from 170, has plateau'd the past two days. renal fxn improved. swelling remains significant. incr lasix to 100 iv BID -09/08: received one dose lasix 100 yest afternoon and then this am--reports signif incr UOP subjectively. wt unchanged today--PT DENIES HAVING BEEN WEIGHED. renal fxn stable. edema improved. same lasix -09/09: pt denies benig weighed today. brisk diuresis continues, signif leg swelling persists. renal fxn overall stable (trending up slightly). continue lasix 100 iv bid--will give additional 80mg IV dose x1 today. rpt bun/creat in AM. -recent echo and mibi unremarkable -his mitral regurg is very bp sensitive--bp control as doing - 09/10: wt down 157 (near baseline), Cr 2.2->1.9, edema/sob improved. continued lasix 100 mg IV BID - 09/11 sob/edema resolved, transitioned to PO furosemide pAFib: - remote paroxysmal AF, then persistent AF for past 2 mo - Rate controlled on coreg, continue same rx - on warfarin per inr - will consider elective DCCV once acute issues resolve CAD, S/P CABG '05: GAN TO LAD, SVG SEQUENTIAL TO DIAG-->OM; SVG TO RPDA: -cont home statin, at home, continue (not on ASA, given pt on warfarin) -recent mibi in office 09/10 no ischemia, nl LVEF. -no signs acs here. HTN: - h/o labile BPs (worse MR/CHF when bp's uncontrolled, low with orthostatic sx' s at times as well) - ARB held here for LUIS - bp controlled here - cont present med tx LUIS on CKD: -here with cardiorenal syndr initially -baseline creat 2.0-2.2 -renal fxn improved with diuresis, stable at baseline now le cellulitis: -remains on IV abx--per ID h/o hepatoma s/p surgery, chemo -monitored at [place], with stable recurrent dz in abdominal lymph node
[2018-09-11] MEDS: FUROSEMIDE 40 MG TABLET (FP) PO SCH ×2 (14:17→14:23)
[2018-09-11] MEDS: INSULIN SLIDING SCALE (NOVOLOG) 1 VIAL SQ SCH ×2 (14:24→17:45)
--- NOTE | 2018-09-11 14:56 | PN ---
Progress Note (short form) - Note Progress Note: no complaints breathing improved lower extremity edema improved Vital Signs Period Temp Pulse Resp BP Sys/Gregory Pulse Ox Last 24 Hr 97.2 F-98.2 F 67-84 20-20 122-142/50-79 98-98 cor-rrr lungs clear abd soft,nt minimal edema of the legs no warmth LLE- still some residual erythema CBC, BMP 09/11/18 06:00 09/11/18 06:00 Microbiology 09/04/18 12:10 Blood - Peripheral Venous Blood Culture - Final NO GROWTH AFTER 5 DAYS INCUBATION 09/04/18 12:12 Blood - Peripheral Venous Blood Culture - Final NO GROWTH AFTER 5 DAYS INCUBATION 09/05/18 15:00 Nares - Mrsa Screen - Right MRSA Screen - Final NO MRSA ISOLATED 09/05/18 15:00 Nares - Mrsa Screen - Left MRSA Screen - Final NO MRSA ISOLATED 09/04/18 15:39 Urine - Urine - Catheterized Urine Culture - Final NO GROWTH OBTAINED a/p chf/edema resolved cellulitis resolving on cefazolin day #7 can switch to po keflex 500 bid for another 72 hours please call back if needed
--- NOTE | 2018-09-11 15:48 | PN ---
Progress Note, Physician Chief Complaint: The patient seen and examined in her room, on his bed. The patient is comfortable. Offers no new complaints. No chest pain, No SOB. Maintains good urine output. LE swelling and redness persists. Off IV Lasix from yesterday. History of Present Illness: 83 year old gentleman with hx of Afib on Coumadin, hypertension, hyperlipidemia , IDDM, Liver cancer s/p partial resection, CAD s/p CABG, LUIS on CKD who presented worsening LE edema and SOB and admitted for CHF exacerbation/fluid overload. There is redness of the LE. - Current Medication List Current Medications: Active Medications Atorvastatin Calcium (Lipitor -) 10 mg PO HS [facility] Last Admin: 09/10/18 22:09 Dose: 10 mg Carvedilol (Coreg -) 25 mg PO BID [facility] Last Admin: 09/11/18 09:16 Dose: 25 mg Cephalexin HCl (Keflex -) 500 mg PO BID [facility] Clonidine HCl (Catapres Tts Patch -) 0.2 mg TD Fr@1000 [facility] Furosemide (Lasix -) 80 mg PO BID@0600,1400 [facility] Last Admin: 09/11/18 14:23 Dose: 80 mg Insulin Aspart (Novolog Vial) 12 units SQ ACBK [facility]; Protocol Last Admin: 09/11/18 07:01 Dose: 12 units Insulin Aspart (Novolog Vial Sliding Scale -) 1 vial SQ TIDAC [facility]; Protocol Last Admin: 09/11/18 14:24 Dose: 10 units Insulin Detemir (Levemir Vial) 8 units SQ [facility] Last Admin: 09/10/18 22:09 Dose: 8 units Mupirocin (Bactroban 2% Cream -) 1 applic TP BID [facility] Last Admin: 09/11/18 09:20 Dose: 1 applic Polyethylene Glycol (Miralax (For Daily Use) -) 17 gm PO DAILY [facility] Last Admin: 09/11/18 09:16 Dose: 17 gm Tamsulosin HCl (Flomax -) 0.4 mg PO DAILY@0830 [facility] Last Admin: 09/11/18 09:16 Dose: 0.4 mg Warfarin Sodium (Coumadin -) 3 mg PO We@1800 [facility] Warfarin Sodium (Coumadin -) 2 mg PO SUMOTUTHFRSA [facility] - Objective Vital Signs: Vital Signs Temperature 98.2 F 09/11/18 14:38 Pulse Rate 84 09/11/18 14:38 Respiratory Rate 20 09/11/18 14:38 Blood Pressure 142/55 L 09/11/18 14:38 O2 Sat by Pulse Oximetry (%) 98 09/11/18 09:00 Constitutional: Yes: No Distress, Calm HENT: Yes: Normocephalic Cardiovascular: Yes: Tachycardia, S1, S2 Respiratory: Yes: Regular, Poor Air Entry, Rales Gastrointestinal: Yes: Normal Bowel Sounds, Soft Genitourinary: No: Bladder Distention, CVA Tenderness - Left, CVA Tenderness - Right, Hematuria Labs: CBC, BMP 09/11/18 06:00 09/11/18 06:00 INR, PTT INR 1.82 (0.83-1.09) H 09/11/18 06:00 Problem List - Problems (1) Acute CHF (congestive heart failure) Code(s): I50.9 - HEART FAILURE, UNSPECIFIED Qualifiers: Heart failure type: unspecified Qualified Code(s): I50.9 - Heart failure, unspecified (2) BPH (benign prostatic hyperplasia) Code(s): N40.0 - BENIGN PROSTATIC HYPERPLASIA WITHOUT LOWER URINRY TRACT SYMP (3) CKD (chronic kidney disease) Code(s): N18.9 - CHRONIC KIDNEY DISEASE, UNSPECIFIED Qualifiers: Chronic kidney disease stage: unspecified stage Qualified Code(s): N18.9 - Chronic kidney disease, unspecified (4) Cellulitis Code(s): L03.90 - CELLULITIS, UNSPECIFIED (5) Diabetes Code(s): E11.9 - TYPE 2 DIABETES MELLITUS WITHOUT COMPLICATIONS Qualifiers: Diabetes mellitus type: type 2 (6) Acute kidney failure Code(s): N17.9 - ACUTE KIDNEY FAILURE, UNSPECIFIED (7) Afib Code(s): I48.91 - UNSPECIFIED ATRIAL FIBRILLATION (8) Anemia Code(s): D64.9 - ANEMIA, UNSPECIFIED (9) Diabetes mellitus, insulin dependent (IDDM), uncontrolled Code(s): E10.65 - TYPE 1 DIABETES MELLITUS WITH HYPERGLYCEMIA (10) Myocardial ischemia Code(s): I25.9 - CHRONIC ISCHEMIC HEART DISEASE, UNSPECIFIED Assessment/Plan 83 year old gentleman with hx of Afib on Coumadin, hypertension, hyperlipidemia , IDDM, Liver cancer s/p partial resection, CAD s/p CABG, CKD (baseline Cr 1.7-2 ) who presented worsening LE edema and SOB and admitted for CHF exacerbation/ fluid overload. #CHF exacerbation/Fluid overload...Continue the loop diuretics. #LE cellulitis ...On IV Abx. Improving. #CKD stage 4, with some acute superimposed LUIS. Most likely related to altered hemodynamics/ infection. #IDDM...needs optimal glycemic control. #Hypertension #Afib on A/C #Chronic Thrombocytopenia Will continue the Antibiotics as ordered. Will switch to oral Lasix. Monitor the renal functions with you. Thank you. Aparna Mcghee MD
--- NOTE | 2018-09-11 16:55 | DS ---
Physical Examination Vital Signs: Vital Signs Temperature 98.2 F 09/11/18 14:38 Pulse Rate 84 09/11/18 14:38 Respiratory Rate 20 09/11/18 14:38 Blood Pressure 142/55 L 09/11/18 14:38 O2 Sat by Pulse Oximetry (%) 98 09/11/18 09:00 Findings/Remarks: The patient is an 83-year-old male, with a past medical history of CAD, CABG x4 stents, CHF, afib on Coumadin, IDDM, HTN, HLD, CVA, Liver/abdominal chemo rx, who presents to the ED with CHF exacerbation. Patient has noted that his lower extremities have been retaining fluid for the past week and appear erythematous , RT worse than LT. Redness began yesterday. Patients reports a recent increase in his torsemide medication to 100 mg 2 days ago. He also endorses abdominal distention and shortness of breath. Constitutional: Yes: Well Nourished, No Distress, Calm Cardiovascular: Yes: Regular Rate and Rhythm Respiratory: Yes: Regular Gastrointestinal: Yes: Normal Bowel Sounds, Soft Musculoskeletal: Yes: WNL Edema: Yes Edema: LLE: 1+, RLE: 1+ Peripheral Pulses WNL: Yes Neurological: Yes: Alert, Oriented Psychiatric: Yes: Alert, Oriented Labs: CBC, BMP 09/11/18 06:00 09/11/18 06:00 Discharge Summary Reason For Visit: ACUTE CHF, CELLULITIS & ABSCESS OF RT LOWER EXTREM Current Active Problems Acute CHF (congestive heart failure) (Acute) BPH (benign prostatic hyperplasia) (Acute) CKD (chronic kidney disease) (Acute) Cellulitis (Acute) Cellulitis and abscess of right leg (Acute) Diabetes (Acute) Hospital Course: Laboratory Last Values WBC 4.3 K/mm3 (4.0-10.0) 09/11/18 06:00 RBC 3.20 M/mm3 (4.00-5.60) L 09/11/18 06:00 Hgb 10.6 GM/dL (11.7-16.9) L 09/11/18 06:00 Hct 30.6 % (35.4-49) L 09/11/18 06:00 MCV 95.6 fl (80-96) 09/11/18 06:00 MCH 33.2 pg (25.7-33.7) 09/11/18 06:00 MCHC 34.7 g/dl (32.0-35.9) 09/11/18 06:00 RDW 14.2 % (11.9-15.9) 09/11/18 06:00 Plt Count 84 K/MM3 (134-434) L 09/11/18 06:00 MPV 10.0 fl (7.5-11.1) 09/11/18 06:00 Absolute Neuts (auto) 2.6 K/mm3 (1.5-8.0) 09/11/18 06:00 Neutrophils % 59.4 % (42.8-82.8) 09/11/18 06:00 Lymphocytes % 24.1 % (8-40) D 09/11/18 06:00 Monocytes % 12.3 % (3.8-10.2) H 09/11/18 06:00 Eosinophils % 3.5 % (0-4.5) D 09/11/18 06:00 Basophils % 0.7 % (0-2.0) 09/11/18 06:00 Nucleated RBC % 0 % (0-0) 09/11/18 06:00 PT with INR 21.60 SEC (9.7-13.0) H 09/11/18 06:00 INR 1.82 (0.83-1.09) H 09/11/18 06:00 Sodium 135 mmol/L (136-145) L 09/11/18 06:00 Potassium 4.4 mmol/L (3.5-5.1) 09/11/18 06:00 Chloride 95 mmol/L (98-107) L 09/11/18 06:00 Carbon Dioxide 34 mmol/L (21-32) H 09/11/18 06:00 Anion Gap 5 MMOL/L (8-16) L 09/11/18 06:00 BUN 55 mg/dL (7-18) H 09/11/18 06:00 Creatinine 2.0 mg/dL (0.55-1.3) H 09/11/18 06:00 Creat Clearance w eGFR 32.07 (>60) 09/11/18 06:00 POC Glucometer 424 UNITS (80-120) 09/11/18 14:22 Random Glucose 252 mg/dL (74-106) H 09/11/18 06:00 Hemoglobin A1c % 8.7 % (4.2-6.3) H 09/11/18 15:20 Calcium 8.3 mg/dL (8.5-10.1) L 09/11/18 06:00 Phosphorus 3.3 mg/dL (2.5-4.9) 09/07/18 07:00 Magnesium 2.4 mg/dL (1.8-2.4) 09/07/18 07:00 Total Bilirubin 0.5 mg/dL (0.2-1) 09/11/18 06:00 AST 16 U/L (15-37) 09/11/18 06:00 ALT 6 U/L (13-61) L 09/11/18 06:00 Alkaline Phosphatase 83 U/L (45-117) 09/11/18 06:00 Creatine Kinase 54 U/L (26-308) 09/05/18 07:01 Troponin I 0.17 ng/ml (0.00-0.05) H 09/05/18 07:01 B-Natriuretic Peptide 3351.2 pg/ml (5-450) H 09/04/18 12:20 Total Protein 5.4 g/dl (6.4-8.2) L 09/11/18 06:00 Albumin 2.8 g/dl (3.4-5.0) L 09/11/18 06:00 Urine Color Straw 09/04/18 15:39 Urine Appearance Clear 09/04/18 15:39 Urine pH 6.0 (5.0-8.0) 09/04/18 15:39 Ur Specific Brohard 1.003 (1.010-1.035) L 09/04/18 15:39 Urine Protein Negative (NEGATIVE) 09/04/18 15:39 Urine Glucose (UA) 3+ (NEGATIVE) H 09/04/18 15:39 Urine Ketones Negative (NEGATIVE) 09/04/18 15:39 Urine Blood Negative (NEGATIVE) 09/04/18 15:39 Urine Nitrite Negative (NEGATIVE) 09/04/18 15:39 Urine Bilirubin Negative (<2.0 mg/dL) 09/04/18 15:39 Urine Urobilinogen Negative mg/dL (0.2-1.0) 09/04/18 15:39 Ur Leukocyte Esterase Negative (NEGATIVE) 09/04/18 15:39 Microbiology 09/04/18 12:10 Blood - Peripheral Venous Blood Culture - Final NO GROWTH AFTER 5 DAYS INCUBATION 09/04/18 12:12 Blood - Peripheral Venous Blood Culture - Final NO GROWTH AFTER 5 DAYS INCUBATION 09/05/18 15:00 Nares - Mrsa Screen - Right MRSA Screen - Final NO MRSA ISOLATED 09/05/18 15:00 Nares - Mrsa Screen - Left MRSA Screen - Final NO MRSA ISOLATED 09/04/18 15:39 Urine - Urine - Catheterized Urine Culture - Final NO GROWTH OBTAINED Condition: Stable - Instructions Referrals: Idris Borges MD [Primary Care Provider] - Laura Laguna MD [Staff Physician] - Aparna Mcghee MD [Staff Physician] - Disposition: [facility]/HOME HEALTH CARE - Home Medications Comprehensive Discharge Medication List: Ambulatory Orders Lantus (10mL VIAL) - 8 units SQ HS 11/03/16 Carvedilol [Coreg -] 25 mg PO BID #60 tablet 08/24/18 Clonidine Patch [Catapres Tts Patch -] 0.2 mg TD Q7D@1000 #4 patch.tdwk Cephalexin Monohydrate [Keflex -] 500 mg PO BID #4 capsule 09/11/18 Furosemide [Lasix -] 80 mg PO BID@0600,1400 #120 tablet 09/11/18 Insulin Aspart [Novolog] 0 unit SQ TID #1 ea 09/11/18 Polyethylene Glycol 3350 [Miralax 119 gm Btl -] 17 gm PO DAILY #1 bottle Simvastatin [Zocor -] 20 mg PO HS #30 tab 09/11/18 Tamsulosin HCl 0.4 mg PO DAILY #30 tab 09/11/18 Warfarin Na [Coumadin -] 2 mg PO SUMOTUTHFRSA #30 tab 09/11/18 Warfarin Na [Coumadin -] 3 mg PO We@1800 #10 tablet 09/11/18
[2018-09-11] MEDS ORDERED: WARFARIN NA 3 MG TABLET PO SCH (18:00)
[2018-09-11] MEDS: ATORVASTATIN CA 10 MG TABLET (FP) PO SCH (23:23)
[2018-09-11] MEDS: INSULIN (LEVEMIR) 100 UNITS/ML UNITS SQ SCH (23:23)
[2018-09-11] MEDS: CEPHALEXIN MONOHYDRATE 500 MG CAPSULE (UD) PO SCH (23:23)
[2018-09-12 06:59] VITALS: TEMP 98.5
[2018-09-12] MEDS: FUROSEMIDE 40 MG TABLET (FP) PO SCH ×2 (07:01→14:23)
[2018-09-12] MEDS: INSULIN (NOVOLOG) ASPART 100 UNITS/ML 10ML VIAL SQ SCH (07:02)
[2018-09-12 07:34] LABS: BASO % 0.7 % (0-2.0); EOS % 2.3 % (0-4.5); HEMATOCRIT 29.4 % (35.4-49); HEMOGLOBIN 10.2 GM/dL (11.7-16.9); LYMPH % 23.6 % (8-40); MCH 33.4 pg (25.7-33.7); MCHC 34.7 g/dl (32.0-35.9); MEAN PLT VOLUME 9.8 fl (7.5-11.1); MONO % 21.3 % (3.8-10.2); NEUT % 52.1 % (42.8-82.8); PLATELET COUNT 70 K/MM3 (134-434); RBC 3.06 M/mm3 (4.00-5.60); RDW 13.9 % (11.9-15.9); WHITE BLOOD COUNT 2.6 K/mm3 (4.0-10.0)
[2018-09-12] MEDS: FUROSEMIDE 40 MG/4 ML INJECTABLE VIAL IVPUSH SCH (07:43)
[2018-09-12] MEDS: INSULIN SLIDING SCALE (NOVOLOG) 1 VIAL SQ SCH ×2 (07:45→12:11)
[2018-09-12 07:49] LABS: INR 1.97 (0.83-1.09); PROTHROMBIN TIME (PATIENT) 23.4 SEC (9.7-13.0)
[2018-09-12 08:02] LABS: ALBUMIN 2.8 g/dl (3.4-5.0); ALK PHOS 79 U/L (45-117); ANION GAP 6 MMOL/L (8-16); BLOOD UREA NITROGEN 49 mg/dL (7-18); CALCIUM 8.3 mg/dL (8.5-10.1); CHLORIDE 98 mmol/L (98-107); CO2 32 mmol/L (21-32); CREATININE 1.8 mg/dL (0.55-1.3); GLUCOSE,RANDOM 195 mg/dL (74-106); POTASSIUM 4.2 mmol/L (3.5-5.1); SGOT/AST 21 U/L (15-37); SGPT/ALT 7 U/L (13-61); SODIUM 136 mmol/L (136-145); TOT PROT 5.3 g/dl (6.4-8.2)
[2018-09-12] MEDS ORDERED: INSULIN (NOVOLOG) ASPART 100 UNITS/ML 10ML VIAL ONE (10:35)
--- NOTE | 2018-09-12 10:35 | PN ---
Progress Note, Physician Chief Complaint: The patient seen and examined in her room, on his bed. The patient is comfortable. Offers no new complaints. No chest pain, No SOB. Maintains good urine output. LE swelling and redness persists. Maintains good urine output. Oral Lasix well tolerated. History of Present Illness: 83 year old gentleman with hx of Afib on Coumadin, hypertension, hyperlipidemia , IDDM, Liver cancer s/p partial resection, CAD s/p CABG, LUIS on CKD who presented worsening LE edema and SOB and admitted for CHF exacerbation/fluid overload. There is redness of the LE - Current Medication List Current Medications: Active Medications Atorvastatin Calcium (Lipitor -) 10 mg PO [facility] Last Admin: 09/11/18 23:23 Dose: 10 mg Carvedilol (Coreg -) 25 mg PO BID [facility] Last Admin: 09/11/18 23:23 Dose: 25 mg Cephalexin HCl (Keflex -) 500 mg PO BID [facility] Last Admin: 09/11/18 23:23 Dose: 500 mg Clonidine HCl (Catapres Tts Patch -) 0.2 mg TD Fr@1000 [facility] Furosemide (Lasix -) 80 mg PO BID@0600,1400 [facility] Last Admin: 09/12/18 07:01 Dose: 80 mg Insulin Aspart (Novolog Vial) 12 units SQ ACBK [facility]; Protocol Last Admin: 09/12/18 07:02 Dose: 12 units Insulin Aspart (Novolog Vial Sliding Scale -) 1 vial SQ TIDAC [facility]; Protocol Last Admin: 09/12/18 07:45 Dose: 2 units Insulin Detemir (Levemir Vial) 8 units SQ [facility] Last Admin: 09/11/18 23:23 Dose: 8 units Mupirocin (Bactroban 2% Cream -) 1 applic TP BID [facility] Last Admin: 09/11/18 23:24 Dose: 1 applic Polyethylene Glycol (Miralax (For Daily Use) -) 17 gm PO DAILY [facility] Last Admin: 09/11/18 09:16 Dose: 17 gm Tamsulosin HCl (Flomax -) 0.4 mg PO DAILY@0830 [facility] Last Admin: 09/11/18 09:16 Dose: 0.4 mg Warfarin Sodium (Coumadin -) 3 mg PO We@1800 [facility] Last Admin: 09/11/18 17:45 Dose: 3 mg Warfarin Sodium (Coumadin -) 2 mg PO SUMOTUTHFRSA [facility] - Objective Vital Signs: Vital Signs Temperature 98.5 F 09/12/18 06:00 Pulse Rate 80 09/12/18 06:00 Respiratory Rate 20 09/12/18 06:00 Blood Pressure 134/66 09/12/18 06:00 O2 Sat by Pulse Oximetry (%) 95 09/11/18 21:00 Constitutional: Yes: Well Nourished, No Distress Eyes: Yes: Conjunctiva Clear HENT: Yes: Normocephalic Neck: Yes: Trachea Midline Cardiovascular: Yes: Pulse Irregular Respiratory: Yes: CTA Bilaterally, Diminished Gastrointestinal: Yes: Normal Bowel Sounds, Soft Genitourinary: No: Bladder Distention, CVA Tenderness - Left, CVA Tenderness - Right, Hematuria Edema: Yes (Redness both LE) Edema: LLE: Trace, RLE: Trace Neurological: Yes: Alert, Oriented Labs: CBC, BMP 09/12/18 06:30 09/12/18 06:30 INR, PTT INR 1.97 (0.83-1.09) H 09/12/18 06:30 Problem List - Problems (1) Acute CHF (congestive heart failure) Code(s): I50.9 - HEART FAILURE, UNSPECIFIED Qualifiers: Heart failure type: unspecified Qualified Code(s): I50.9 - Heart failure, unspecified (2) BPH (benign prostatic hyperplasia) Code(s): N40.0 - BENIGN PROSTATIC HYPERPLASIA WITHOUT LOWER URINRY TRACT SYMP (3) CKD (chronic kidney disease) Code(s): N18.9 - CHRONIC KIDNEY DISEASE, UNSPECIFIED Qualifiers: Chronic kidney disease stage: unspecified stage Qualified Code(s): N18.9 - Chronic kidney disease, unspecified (4) Cellulitis Code(s): L03.90 - CELLULITIS, UNSPECIFIED (5) Diabetes Code(s): E11.9 - TYPE 2 DIABETES MELLITUS WITHOUT COMPLICATIONS Qualifiers: Diabetes mellitus type: type 2 (6) Acute kidney failure Code(s): N17.9 - ACUTE KIDNEY FAILURE, UNSPECIFIED (7) Afib Code(s): I48.91 - UNSPECIFIED ATRIAL FIBRILLATION (8) Anemia Code(s): D64.9 - ANEMIA, UNSPECIFIED (9) Diabetes mellitus, insulin dependent (IDDM), uncontrolled Code(s): E10.65 - TYPE 1 DIABETES MELLITUS WITH HYPERGLYCEMIA (10) Myocardial ischemia Code(s): I25.9 - CHRONIC ISCHEMIC HEART DISEASE, UNSPECIFIED Assessment/Plan 83 year old gentleman with hx of Afib on Coumadin, hypertension, hyperlipidemia , IDDM, Liver cancer s/p partial resection, CAD s/p CABG, CKD (baseline Cr 1.7-2 ) who presented worsening LE edema and SOB and admitted for CHF exacerbation/ fluid overload. #CHF exacerbation/Fluid overload...Continue the loop diuretics. #LE cellulitis ...On IV Abx. Improving. #CKD stage 4, with some acute superimposed LUIS. Most likely related to altered hemodynamics/ infection. The acute azotemia continues to improve. #IDDM...needs optimal glycemic control. #Hypertension #Afib on A/C Will continue the Antibiotics as ordered. Will switch to oral Lasix. Monitor the renal functions with you. Thank you. Aparna Mcghee MD
[2018-09-12] MEDS: TAMSULOSIN HCL 0.4 MG CAP PO SCH (10:37)
[2018-09-12] MEDS: CEPHALEXIN MONOHYDRATE 500 MG CAPSULE (UD) PO SCH (10:37)
[2018-09-12] MEDS: CARVEDILOL 25 MG TABLET (FP) PO SCH (10:37)
[2018-09-12] MEDS: POLYETHYLENE GLYCOL 3350 119 GM BTL PO SCH (10:37)
[2018-09-12] MEDS: MUPIROCIN CA 2% TOPICAL CREAM 15 GM TUBE TP SCH (10:38)
[2018-09-12 11:07] LABS: ANISOCYTOSIS 2+; MACROCYTOSIS 0; OVALOCYTE 1+; PLATELET ESTIMATE DECREASED; TARGET CELLS 1+
[2018-09-12 11:30] VITALS: BMI 26.8
--- NOTE | 2018-09-12 13:31 | PN ---
Progress Note, Physician Chief Complaint: patient seen and examined ready to go home - Current Medication List Current Medications: Active Medications Atorvastatin Calcium (Lipitor -) 10 mg PO HS [facility] Last Admin: 09/11/18 23:23 Dose: 10 mg Carvedilol (Coreg -) 25 mg PO BID [facility] Last Admin: 09/12/18 10:37 Dose: 25 mg Cephalexin HCl (Keflex -) 500 mg PO BID [facility] Last Admin: 09/12/18 10:37 Dose: 500 mg Clonidine HCl (Catapres Tts Patch -) 0.2 mg TD Fr@1000 [facility] Furosemide (Lasix -) 80 mg PO BID@0600,1400 [facility] Last Admin: 09/12/18 07:01 Dose: 80 mg Insulin Aspart (Novolog Vial) 12 units SQ ACBK [facility]; Protocol Last Admin: 09/12/18 07:02 Dose: 12 units Insulin Aspart (Novolog Vial Sliding Scale -) 1 vial SQ TIDAC [facility]; Protocol Last Admin: 09/12/18 12:11 Dose: Not Given Insulin Detemir (Levemir Vial) 8 units SQ [facility] Last Admin: 09/11/18 23:23 Dose: 8 units Mupirocin (Bactroban 2% Cream -) 1 applic TP BID [facility] Last Admin: 09/12/18 10:38 Dose: 1 applic Polyethylene Glycol (Miralax (For Daily Use) -) 17 gm PO DAILY [facility] Last Admin: 09/12/18 10:37 Dose: 17 gm Tamsulosin HCl (Flomax -) 0.4 mg PO DAILY@0830 [facility] Last Admin: 09/12/18 10:37 Dose: 0.4 mg Warfarin Sodium (Coumadin -) 3 mg PO We@1800 [facility] Last Admin: 09/11/18 17:45 Dose: 3 mg Warfarin Sodium (Coumadin -) 2 mg PO SUMOTUTHFRSA [facility] - Objective Vital Signs: Vital Signs Temperature 98.5 F 09/12/18 09:00 Pulse Rate 75 09/12/18 09:00 Respiratory Rate 18 09/12/18 09:00 Blood Pressure 128/41 L 09/12/18 09:00 O2 Sat by Pulse Oximetry (%) 95 09/11/18 21:00 Constitutional: Yes: Calm Cardiovascular: Yes: Regular Rate and Rhythm, S1, S2 Respiratory: Yes: CTA Bilaterally Gastrointestinal: Yes: Normal Bowel Sounds, Soft Edema: Yes Neurological: Yes: Alert, Oriented Labs: CBC, BMP 09/12/18 06:30 09/12/18 06:30 INR, PTT INR 1.97 (0.83-1.09) H 09/12/18 06:30 Problem List - Problems (1) Acute CHF (congestive heart failure) Assessment/Plan: lasix 80 mg po bid check venous doppler r/o dvt- no dvts daily weights cardiology on board weight is down from 164 to 161 Code(s): I50.9 - HEART FAILURE, UNSPECIFIED Qualifiers: Heart failure type: unspecified Qualified Code(s): I50.9 - Heart failure, unspecified (2) Afib Assessment/Plan: rate control coumadin restart INR Is 1.8 check inr in AM Code(s): I48.91 - UNSPECIFIED ATRIAL FIBRILLATION (3) Cellulitis Assessment/Plan: right leg ancef to keflex Microbiology 09/05/18 15:00 Nares - Mrsa Screen - Right MRSA Screen - Final NO MRSA ISOLATED 09/05/18 15:00 Nares - Mrsa Screen - Left MRSA Screen - Final NO MRSA ISOLATED 09/04/18 15:39 Urine - Urine - Catheterized Urine Culture - Final NO GROWTH OBTAINED 09/04/18 12:12 Blood - Peripheral Venous Blood Culture - Preliminary NO GROWTH OBTAINED AFTER 24 HOURS, INCUBATION TO CONTINUE FOR 4 DAYS. 09/04/18 12:10 Blood - Peripheral Venous Blood Culture - Preliminary NO GROWTH OBTAINED AFTER 24 HOURS, INCUBATION TO CONTINUE FOR 4 DAYS. Code(s): L03.90 - CELLULITIS, UNSPECIFIED (4) BPH (benign prostatic hyperplasia) Assessment/Plan: flomax Code(s): N40.0 - BENIGN PROSTATIC HYPERPLASIA WITHOUT LOWER URINRY TRACT SYMP (5) Diabetes Assessment/Plan: sliding scale [id number] insulin lantus 8 units at night novolog 12 units after BK If bgm >100 10 unts after lunch and 12 at night Code(s): E11.9 - TYPE 2 DIABETES MELLITUS WITHOUT COMPLICATIONS Qualifiers: Diabetes mellitus type: type 2
[2018-09-12 15:15] VITALS: BP 146/59; PULSE 73
[2018-09-12] MEDS ORDERED: WARFARIN NA 2 MG TABLET (UD) PO SCH (18:00)
[2018-09-13] MEDS ORDERED: cloNIDine-TTS 0.2 MG/24 HOURS PATCH.TDWK TD SCH (10:00)
== END 2018-09-12 15:33 | disposition home health service (06) | DRG 602 ==
LOC: JER 10:26 → JERBED 15:22 → J4W 09-05 14:46 → J5S 09-08 21:11
PROVIDERS: ADMIT Family Medicine; ATTEND Family Medicine
DX: L03.115 Cellulitis of right lower limb (principal); I50.31 Acute diastolic (congestive) heart failure; I13.0 Hypertensive heart and chronic kidney disease with heart failure and stage 1 through stage 4 chronic kidney disease, or unspecified chronic kidney disease; D61.818 Other pancytopenia; N17.9 Acute kidney failure, unspecified; N18.4 Chronic kidney disease, stage 4 (severe); I25.10 Atherosclerotic heart disease of native coronary artery without angina pectoris; K59.00 Constipation, unspecified; E78.5 Hyperlipidemia, unspecified; N40.0 Benign prostatic hyperplasia without lower urinary tract symptoms; E11.65 Type 2 diabetes mellitus with hyperglycemia; E11.22 Type 2 diabetes mellitus with diabetic chronic kidney disease; I48.0 Paroxysmal atrial fibrillation; D69.6 Thrombocytopenia, unspecified; D64.9 Anemia, unspecified; I25.9 Chronic ischemic heart disease, unspecified; Z95.5 Presence of coronary angioplasty implant and graft; Z86.73 Personal history of transient ischemic attack (TIA), and cerebral infarction without residual deficits; Z79.4 Long term (current) use of insulin; Z95.1 Presence of aortocoronary bypass graft; Z85.05 Personal history of malignant neoplasm of liver
CPT/HCPCS: 36415; 71045-TC-FY; 80048; 80053; 81003; 82550; 82962; 83036; 83735; 83880; 84100; 84484; 85025; 85027; 85610; 87040; 87081; 87086; 93005; 93010; 93970-TC; 97116-GP; 97161-GP; 99285-25

== ENCOUNTER 2018-09-20 05:39 | Inpatient (IN) | payer OTHER ==
--- NOTE | 2018-09-20 06:09 | PDOC ---
History of Present Illness - General Chief Complaint: Shortness of Breath Stated Complaint: DIFFICULTY BREATHING Time Seen by Provider: 09/20/18 05:43 History Source: Patient, Spouse Exam Limitations: No Limitations - History of Present Illness Initial Comments: 09/20/18 06:08 Pt is an 83yo M with PMH of CAD s/p CABGx4, CHF, Liver Ca s/p resection, HTN, IDDM, HLD presenting to ED with family for cough, occasional SOB and tremors. Pt was recently admitted and DC from hospital for CHF exacerbation 1.5 weeks ago. Since then noticed that pt has been getting progressively weaker. Pt has been having a non productive cough since the discharge and went to Dr. Odom's office and was told to increase torsemide. Went to Dr. Sanchez office 4 days ago and told to wean off torsemide. Per , pt has been getting progressively weaker and started to have a tremor. He has not been eating or drinking that well. Pt endorses dry cough, tremors, difficulty with balance, and feeling weak. Denies fevers, chills, chest pain, abdominal pain, n/v/d, urinary symptoms, syncope, headache, numbness/tingling. PMD: Katerina Card: Daniel PMH: see hpi PSH: see hpi, cholecystectomy Meds: see med rec Allergies: nkda Social: denies Past History - Past Medical History Allergies/Adverse Reactions: Allergies Allergy/AdvReac Type Severity Reaction Status Date / Time No Known Drug Allergies Allergy Verified 09/20/18 05:49 Home Medications: Ambulatory Orders Lantus (10mL VIAL) - 8 units SQ HS 11/03/16 Carvedilol [Coreg -] 25 mg PO BID #60 tablet 08/24/18 Clonidine Patch [Catapres Tts Patch -] 0.2 mg TD Q7D@1000 #4 patch.tdwk Cephalexin Monohydrate [Keflex -] 500 mg PO BID #4 capsule 09/11/18 Furosemide [Lasix -] 80 mg PO BID@0600,1400 #120 tablet 09/11/18 Insulin Aspart [Novolog] 0 unit SQ TID #1 ea 09/11/18 Polyethylene Glycol 3350 [Miralax 119 gm Btl -] 17 gm PO DAILY #1 bottle Simvastatin [Zocor -] 20 mg PO HS #30 tab 09/11/18 Tamsulosin HCl 0.4 mg PO DAILY #30 tab 09/11/18 Warfarin Na [Coumadin -] 2 mg PO SUMOTUTHFRSA #30 tab 09/11/18 Warfarin Na [Coumadin -] 3 mg PO We@1800 #10 tablet 09/11/18 Tamsulosin HCl [Flomax -] 0.4 mg PO DAILY@0830 #30 cap.er.24h MDD 1 09/12/18 Anemia: No Asthma: No Cancer: Yes (LIVER, ABDOMEN Chemo Rx) Cardiac Disorders: Yes (CAD; CAGG x 4; A-FIB) CVA: No COPD: No CHF: Yes Dementia: No Diabetes: Yes (IDDM) GI Disorders: No Disorders: (urinary retention) HTN: Yes Hypercholesterolemia: Yes Liver Disease: Yes (LIVER CA) Seizures: No Thyroid Disease: No - Surgical History Abdominal Surgery: Yes (Liver resection) Appendectomy: No Cardiac Surgery: Yes (CABG) Cholecystectomy: Yes Lung Surgery: No Neurologic Surgery: No Orthopedic Surgery: No - Suicide/Smoking/Psychosocial Hx Smoking History: Never smoked Have you smoked in the past 12 months: No Information on smoking cessation initiated: No Hx Alcohol Use: No Drug/Substance Use Hx: No Substance Use Type: None Hx Substance Use Treatment: No *Physical Exam - Vital Signs Last Vital Signs Temp Pulse Resp BP Pulse Ox 98.8 F 89 24 H 191/74 H 96 09/20/18 05:39 09/20/18 05:39 09/20/18 05:39 09/20/18 05:39 09/20/18 05:39 Moderate Sedation - Procedure Monitoring Vital Signs: Procedure Monitoring Vital Signs Temperature 98.8 F 09/20/18 05:39 Pulse Rate 89 09/20/18 05:39 Respiratory Rate 24 H 09/20/18 05:39 Blood Pressure 191/74 H 09/20/18 05:39 O2 Sat by Pulse Oximetry (%) 96 09/20/18 05:39 ED Treatment Course - LABORATORY CBC & Chemistry Diagram: 09/20/18 06:20 09/20/18 06:20 - RADIOLOGY Radiology Studies Ordered: Category Date Time Status CHEST X-RAY PORTABLE* [RAD] Stat Radiology 09/20/18 05:44 Ordered Medical Decision Making - Medical Decision Making 09/20/18 07:11 Pt is an 83yo M with PMH of CAD s/p CABGx4, CHF, Liver Ca s/p resection, HTN, IDDM, HLD presenting to ED with family for cough, occasional SOB and tremors. Pt was recently admitted and DC from hospital for CHF exacerbation 1.5 weeks ago. Since then noticed that pt has been getting progressively weaker. Pt has been having a non productive cough since the discharge and went to Dr. Odom's office and was told to increase torsemide. Went to Dr. Sanchez office 4 days ago and told to wean off torsemide. Per , pt has been getting progressively weaker and started to have a tremor. He has not been eating or drinking that well. Pt endorses dry cough, tremors, difficulty with balance, and feeling weak. Denies fevers, chills, chest pain, abdominal pain, n/v/d, urinary symptoms, syncope, headache, numbness/tingling. Vitals: wnl PE: decreased breath sounds llf, slight wheezing. tremors in hands bilaterally, coarse. normal neurological exam. ddx includes but not limited to: pna, bronchitis, acs, chf exacerbation, medication side effect, electrolyte disturbance, metabolic derrangements, dehydration, cva -low suspicion for cva given no neurological deficits. -cbc, cmp, bnp, mg, trop, ua, coags -cxr, ekg -oral rehydration CXR shows left angle blurriness not seen on previous xrays. EKG shows afib, not rvr. no lul or depressions pt recently hospitalized, will treat for HCAP. vanc/zosyn. labs pending. Will admit for pna with failure to thrive? v. chf v. acs signed out to Dr. Wiggins 09/20/18 07:18 *DC/Admit/Observation/Transfer Diagnosis at time of Disposition: Weakness PNA (pneumonia) Qualifiers: Pneumonia type: due to unspecified organism Laterality: left Lung location: lower lobe of lung Qualified Code(s): J18.1 - Lobar pneumonia, unspecified organism - Discharge Dispostion Condition at time of disposition: Fair - Referrals Referrals: Idris Borges MD [Primary Care Provider] - - Patient Instructions - Post Discharge Activity
[2018-09-20 06:36] LABS: BASO % 0.3 % (0-2.0); EOS % 0.1 % (0-4.5); HEMATOCRIT 36.2 % (35.4-49); HEMOGLOBIN 12.8 GM/dL (11.7-16.9); LYMPH % 5.9 % (8-40); MCH 32.8 pg (25.7-33.7); MCHC 35.3 g/dl (32.0-35.9); MEAN CELL VOLUME 92.8 fl (80-96); MEAN PLT VOLUME 9.5 fl (7.5-11.1); MONO % 6.8 % (3.8-10.2); NEUT % 86.9 % (42.8-82.8); PLATELET COUNT 103 K/MM3 (134-434); RDW 14.4 % (11.9-15.9); WHITE BLOOD COUNT 10.4 K/mm3 (4.0-10.0)
[2018-09-20 06:51] LABS: INR 3.96 (0.83-1.09); PROTHROMBIN TIME (PATIENT) 47.4 SEC (9.7-13.0)
--- NOTE | 2018-09-20 06:51 | PDOC ---
Attending Attestation - Resident Resident Name: BarbiSaNing - ED Attending Attestation I have performed the following: I have examined & evaluated the patient, The case was reviewed & discussed with the resident, I agree w/resident's findings & plan - HPI HPI: 09/20/18 06:51 83y/o M HTN, CAD, CHF with recent exacerbation and currently optimizing diuresis , afib on coumadin, home for one week and seen in office by Dr. Borges and Dr. Sanchez in that time, presents now with declining health described as worsening cough for one week, and now increasing weakness with decreased PO intake for 2 days. no f/c, no cp. cough is dry, no v/d/abd pain. - Physicial Exam PE: 09/20/18 07:01 vitals as noted, elevated bp, afebrile alert and coherent, not in acute distress dry mucosa, no jaundice/pallor irregular with normal rate slightly decreased L base, no wheeze abd benign trace pretibial edema, well perfused peripherally distal upper extremity muscle tremor b/l, no focal neuro deficit - Medical Decision Making 09/20/18 07:02 83-year-old well with multiple medical problems including CHF with recent diuresis on torsemide presents now with cough but worsening physical decline over the last few days, having difficulty ambulating, decreased by mouth intake leading further dehydration. Question infectious process such as pneumonia Rule out electrolyte versus metabolic abnormality Labs, urinalysis EKG, chest x-ray Discuss with PCP Dr. Borges and Dr. Sanchez, will likely require admission given how debilitated he's become 09/20/18 07:06 CXR with new LLL infiltrate compared to last week, will treat for HCAP given recent admission and persistent cough. labs pending, then admit Heart Score/ECG Review #1 ECG reviewed & interpreted by me at: 06:54 Compared to previous ECG there are: No significant change (c/w 09/04/18) 09/20/18 07:05 afib at 81, qrs 126 nonspecific intraventricular delay, no acute ischemic changes
[2018-09-20 07:01] LABS: N-TERMINAL BNP 3368.8 pg/ml (5-450)
[2018-09-20] MEDS ORDERED: PIPERACILLIN/TAZOB 3.375 GM 3.375 GM in DEXTROSE 5%-WATER - 50 ML IVPB ONE (07:06)
[2018-09-20] MEDS ORDERED: VANCOMYCIN 1 GM in D5W (PRE-DOCKED) 1,000 MG/250 ML IVPB ONE (07:06)
[2018-09-20] MEDS ORDERED: VANCOMYCIN 1 GRAM (PRE-DOCKED) 1,000 MG/250 ML BAG IVPB ONE (07:31)
[2018-09-20] MEDS ORDERED: PIPERACILLIN/TAZOB 3.375 GM 3.375 GM/50 ML BAG IVPB ONE (07:32)
[2018-09-20 07:34] LABS: ALBUMIN 3.2 g/dl (3.4-5.0); ALK PHOS 122 U/L (45-117); ANION GAP 16 MMOL/L (8-16); BILIRUBIN,TOTAL 1.2 mg/dL (0.2-1); BLOOD UREA NITROGEN 88 mg/dL (7-18); CALCIUM 8.1 mg/dL (8.5-10.1); CHLORIDE 86 mmol/L (98-107); CO2 33 mmol/L (21-32); CREATININE 2.2 mg/dL (0.55-1.3); GLUCOSE,RANDOM 192 mg/dL (74-106); MAGNESIUM 2.3 mg/dL (1.8-2.4); POTASSIUM 3.7 mmol/L (3.5-5.1); SGOT/AST 33 U/L (15-37); SGPT/ALT 17 U/L (13-61); SODIUM 135 mmol/L (136-145); TOT PROT 6.5 g/dl (6.4-8.2)
--- NOTE | 2018-09-20 07:59 | PDOC ---
*Physical Exam - Vital Signs Last Vital Signs Temp Pulse Resp BP Pulse Ox 98.8 F 89 24 H 191/74 H 96 09/20/18 05:39 09/20/18 05:39 09/20/18 05:39 09/20/18 05:39 09/20/18 05:46 ED Treatment Course - LABORATORY CBC & Chemistry Diagram: 09/20/18 06:20 09/20/18 06:20 - ADDITIONAL ORDERS Additional order review: Laboratory Results 09/20/18 09/20/18 09/20/18 06:20 06:20 06:20 PT with INR 47.40 H INR 3.96 H Sodium 135 L Potassium 3.7 Chloride 86 L Carbon Dioxide 33 H Anion Gap 16 BUN 88 H Creatinine 2.2 H Creat Clearance w eGFR 28.73 Random Glucose 192 H Calcium 8.1 L Magnesium 2.3 Total Bilirubin 1.2 H AST 33 ALT 17 Alkaline Phosphatase 122 H Troponin I 0.06 H B-Natriuretic Peptide 3368.8 H Total Protein 6.5 Albumin 3.2 L 09/20/18 06:20 RBC 3.90 L MCV 92.8 MCHC 35.3 RDW 14.4 MPV 9.5 Neutrophils % 86.9 H D Lymphocytes % 5.9 L D Monocytes % 6.8 Eosinophils % 0.1 D Basophils % 0.3 - Medications Given in the ED: ED Medications Discontinued Medications Generic Name Dose Route Start Last Admin Trade Name Freq PRN Reason Stop Dose Admin Piperacillin Sod/Tazobactam 50 mls @ 100 mls/hr 09/20/18 07:06 09/20/18 07:19 Sod 3.375 gm/ Dextrose IVPB 09/20/18 07:35 100 mls/hr ONCE ONE Administration Protocol Medical Decision Making - Medical Decision Making Pt is an 83yo M with PMH of CAD s/p CABGx4, CHF, Liver Ca s/p resection, HTN, IDDM, HLD presenting to ED with family for cough, occasional SOB and tremors. Recent discharge C/o weakness and nonproductive cough WBC=10.4 YAR=7517.8 (consistent with previous values) Vanc/zosyn for HCAP Plan to admit 09/20/18 07:[address] Borges 09/20/18 08:[address] Borges who accepted patient for admission 09/20/18 09:21 *DC/Admit/Observation/Transfer Diagnosis at time of Disposition: Weakness PNA (pneumonia) Qualifiers: Pneumonia type: due to unspecified organism Laterality: left Lung location: lower lobe of lung Qualified Code(s): J18.1 - Lobar pneumonia, unspecified organism - Discharge Dispostion Condition at time of disposition: Fair Decision to Admit order: Yes - Referrals Referrals: Idris Borges MD [Primary Care Provider] - - Patient Instructions - Post Discharge Activity
[2018-09-20 08:18] LABS: URINE APPEARANCE CLEAR; URINE BILIRUBIN NEGATIVE (<2.0 mg/dL); URINE COLOR STRAW; URINE GLUCOSE (UA) NEGATIVE (NEGATIVE); URINE KETONE NEGATIVE (NEGATIVE); URINE LEUK ESTERASE NEGATIVE (NEGATIVE); URINE NITRITE NEGATIVE (NEGATIVE); URINE PROTEIN 1+ (NEGATIVE); URINE UROBILINOGEN NEGATIVE mg/dL (0.2-1.0)
[2018-09-20 09:01] LABS: URINE HYALINE CAST 1 /lpf
[2018-09-20] MEDS ORDERED: ACETAMINOPHEN INJECTION 100 ML IVPB ONE (09:19)
[2018-09-20] MEDS ORDERED: ACETAMINOPHEN 1000 MG/100 ML VIAL (NON FORMULARY) IVPB ONE (09:20)
[2018-09-20] MEDS ORDERED: ACETAMINOPHEN 325 MG TABLET (FP) PO PRN (10:01)
--- NOTE | 2018-09-20 10:01 | HP ---
Admitting History and Physical - Admission History of Present Illness: 83-year-old well with multiple medical problems including CHF with recent diuresis on torsemide presents now with cough but worsening physical decline over the last few days, having difficulty ambulating, decreased by mouth intake leading further dehydration. Question infectious process such as pneumonia Rule out electrolyte versus metabolic abnormality c/o twitching - Past Medical History Cardiovascular: Yes: AFIB, CAD, CHF, HTN, Hyperlipdemia Gastrointestinal: Yes: Cancer (primary liver) Hepatobiliary: Yes: Other (primary liver cancer s/p resection and now recurr in lymph nodes on chemo (nexavar)) Renal/: Yes: Renal Inusuff Endocrine: Yes: Diabetes Mellitus (insulin dependent) - Past Surgical History Past Surgical History: Yes: CABG (partial liver resection) - Smoking History Smoking history: Never smoked Have you smoked in the past 12 months: No - Alcohol/Substance Use Hx Alcohol Use: No - Social History ADL: Independent History of Recent Travel: No Home Medications - Allergies Allergies/Adverse Reactions: Allergies Allergy/AdvReac Type Severity Reaction Status Date / Time No Known Drug Allergies Allergy Verified 09/20/18 05:49 - Home Medications Home Medications: Ambulatory Orders Lantus (10mL VIAL) - 8 units SQ HS 11/03/16 Carvedilol [Coreg -] 25 mg PO BID #60 tablet 08/24/18 Clonidine Patch [Catapres Tts Patch -] 0.2 mg TD Q7D@1000 #4 patch.tdwk Cephalexin Monohydrate [Keflex -] 500 mg PO BID #4 capsule 09/11/18 Furosemide [Lasix -] 80 mg PO BID@0600,1400 #120 tablet 09/11/18 Insulin Aspart [Novolog] 0 unit SQ TID #1 ea 09/11/18 Polyethylene Glycol 3350 [Miralax 119 gm Btl -] 17 gm PO DAILY #1 bottle Simvastatin [Zocor -] 20 mg PO HS #30 tab 09/11/18 Tamsulosin HCl 0.4 mg PO DAILY #30 tab 09/11/18 Warfarin Na [Coumadin -] 2 mg PO SUMOTUTHFRSA #30 tab 09/11/18 Warfarin Na [Coumadin -] 3 mg PO We@1800 #10 tablet 09/11/18 Tamsulosin HCl [Flomax -] 0.4 mg PO DAILY@0830 #30 cap.er.24h MDD 1 09/12/18 Review of Systems - Review of Systems Cardiovascular: reports: Shortness of Breath. denies: Chest Pain Respiratory: reports: Cough, SOB, SOB on Exertion Gastrointestinal: reports: No Symptoms Musculoskeletal: reports: Muscle Weakness Neurological: reports: Tremors, Unsteady Gait, Weakness Physical Examination Vital Signs: Vital Signs Temperature 98.8 F 09/20/18 05:39 Pulse Rate 95 H 09/20/18 08:13 Respiratory Rate 22 H 09/20/18 08:13 Blood Pressure 150/68 09/20/18 08:13 O2 Sat by Pulse Oximetry (%) 95 09/20/18 08:13 Cardiovascular: Yes: S1, S2 Respiratory: Yes: Diminished Gastrointestinal: Yes: Normal Bowel Sounds, Soft Edema: Yes Neurological: Yes: Alert, Weakness, Other (jerking movements) Labs: CBC, BMP 09/20/18 06:20 09/20/18 06:20 Problem List - Problems (1) Jerking movements of extremities Assessment/Plan: check labs neuro Code(s): R25.2 - CRAMP AND SPASM (2) PNA (pneumonia) Assessment/Plan: -questionable id and pulm consults Code(s): J18.9 - PNEUMONIA, UNSPECIFIED ORGANISM Qualifiers: Pneumonia type: due to unspecified organism Laterality: left Lung location: lower lobe of lung Qualified Code(s): J18.1 - Lobar pneumonia, unspecified organism (3) Weakness Assessment/Plan: maybe due to meds and worsening renal status Code(s): R53.1 - WEAKNESS (4) Acute kidney failure Assessment/Plan: -renal consult Code(s): N17.9 - ACUTE KIDNEY FAILURE, UNSPECIFIED (5) Afib Assessment/Plan: on ac--inr high cardio Code(s): I48.91 - UNSPECIFIED ATRIAL FIBRILLATION (6) CHF (congestive heart failure) Assessment/Plan: -diuretics per cardio cardio consult Code(s): I50.9 - HEART FAILURE, UNSPECIFIED
--- NOTE | 2018-09-20 10:17 | EKG ---
Test Reason : Blood Pressure : / mmHG Vent. Rate : 081 BPM Atrial Rate : 187 BPM P-R Int : 000 ms QRS Dur : 126 ms QT Int : 404 ms P-R-T Axes : 000 -32 090 degrees QTc Int : 469 ms POOR DATA QUALITY, INTERPRETATION MAY BE ADVERSELY AFFECTED ATRIAL FIBRILLATION LEFT AXIS DEVIATION NONSPECIFIC ST ABNORMALITY ABNORMAL ECG Confirmed by ANTHONY CHINO MD ([id number]) on 09/20/2018 10:16:51 AM Referred By: Confirmed By:ANTHONY CHINO MD
--- NOTE | 2018-09-20 10:26 | EKG ---
Test Reason : Blood Pressure : / mmHG Vent. Rate : 076 BPM Atrial Rate : 087 BPM P-R Int : 000 ms QRS Dur : 132 ms QT Int : 452 ms P-R-T Axes : 000 -25 064 degrees QTc Int : 508 ms ATRIAL FIBRILLATION NON-SPECIFIC INTRA-VENTRICULAR CONDUCTION BLOCK NONSPECIFIC ST ABNORMALITY ABNORMAL ECG WHEN COMPARED WITH ECG OF 20-SEP-2018 06:54, NO SIGNIFICANT CHANGE WAS FOUND Confirmed by ANTHONY CHINO MD ([id number]) on 09/20/2018 10:26:32 AM Referred By: Confirmed By:ANTHONY CHINO MD
[2018-09-20 11:45] LABS: MAGNESIUM 1.9 mg/dL (1.8-2.4); PHOSPHOROUS 3.5 mg/dL (2.5-4.9)
--- NOTE | 2018-09-20 14:32 | CONSULT ---
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 , daughter and grandson at bedside. Independent with ADL's and ambulation. Here after one week of progressive cough , generalized weakness, and poor appetite. Now with 3 days of persistent tremor in hands and "unsteadiness on feet." Pt was recently discharged within past month with CHF exacerbation as well as cellulitis of the leg. 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 Duplex (Not yet reported): Scattered plaques in R CCA. ? R ICA stenosis. Left carotid system looks patent. WBC 10.4 with left shift, INR 3.96, Na 135, BUN/CR 88/2.2, BNP 4469, Alb 3.2; UA neg SHARI: 130-190/60-70. Irregularly irregular. + L carotid bruit. Mid-sternotomy scar. Scattered ecchymoses to forearms NEURO: Mentation/Speech: [facility]. September 20, 2018. TRUMP poor reversals. /3 recall at 3. CNII-CNXII: EOM with few beats nystagmus L gaze. Full soto appreciated. Gag ok. Motor: Myoclonic jerks of the hands and feet. No drift. Strength normal. Reflexes normal throughout. Toes downgoing. Coordination: Mild FTN dystaxia B/L. Sensation: decreased vibration both feet. Romberg + Gait: Variable, unsteady. Impression: 1. Mild B/L Cerebral Dysfunction 2. Myoclonic Jerks strongly suggestive of Toxic-Metabolic Encephalopathy (TME) (i.e. urosepsis, PNA, Influenza, Occult infection) 3. Peripheral Neuropathy (c/w diabetes) Suggest: Order CT of head (C-) Await carotid duplex Add thiamine 250 mg IVP TID x 3 days, one dose stat Order B12, Fe++, Iron, TIBC, Ferritin, TSH, ammonia level Orthostatic BP's and control of systolic BP in 120-130s Maintain therapeutic INR 2-3 on warfarin ID and Cardiology consult appreciated Neuro f/u as outpatient Thank you very much, Jose Arcos MD
--- NOTE | 2018-09-20 16:04 | CON.CARD ---
Cardiology Consult (text) - Consultation Consultation Note: - Consultation Consultation Note: Chief Complaint: sob History of Present Illness: 83M h/o afib on coumadin, CAD p/w cough, sob, tremors, weakness. Recently admitted for CHF exacerbation, was diuresed. Saw Dr. Sanchez last week, appeared euvolemic with minimal edema and CXR no congestion at the time. Had LUIS, diuretics were reduced (was taking torsemide 100 mg BID and metolazone the week prior) was told not to take torsemide tu and wed this week, took 50 mg torsemide yesterday, none today. No cp palps dizzy loc pnd orthopnea. In the ER received abx, treating empirically for HCAP, neuro consulted for tremors - Allergies Allergies/Adverse Reactions: Allergies Allergy/AdvReac Type Severity Reaction Status Date / Time No Known Drug Allergies Allergy Verified 09/20/18 05:49 - Home Medications Ambulatory Orders Lantus (10mL VIAL) - 8 units SQ HS 11/03/16 Carvedilol [Coreg -] 25 mg PO BID #60 tablet 08/24/18 Clonidine Patch [Catapres Tts Patch -] 0.2 mg TD Q7D@1000 #4 patch.tdwk Cephalexin Monohydrate [Keflex -] 500 mg PO BID #4 capsule 09/11/18 Furosemide [Lasix -] 80 mg PO BID@0600,1400 #120 tablet 09/11/18 Insulin Aspart [Novolog] 0 unit SQ TID #1 ea 09/11/18 Polyethylene Glycol 3350 [Miralax 119 gm Btl -] 17 gm PO DAILY #1 bottle Simvastatin [Zocor -] 20 mg PO HS #30 tab 09/11/18 Tamsulosin HCl 0.4 mg PO DAILY #30 tab 09/11/18 Warfarin Na [Coumadin -] 2 mg PO SUMOTUTHFRSA #30 tab 09/11/18 Warfarin Na [Coumadin -] 3 mg PO We@1800 #10 tablet 09/11/18 Tamsulosin HCl [Flomax -] 0.4 mg PO DAILY@0830 #30 cap.er.24h MDD 1 09/12/18 Family Disease History - Family Disease History Family History: Unremarkable Review of Systems - Review of Systems per hpi; no nvd fever gib hematuria dysuria wt loss abd pain vision changes Vital Signs: Vital Signs Period Temp Pulse Resp BP Sys/Gregory Pulse Ox Last 24 Hr 97.7 F-98.8 F 74-96 18-24 130-191/52-74 93-96 Constitutional: Yes: Calm, nad Eyes: Yes: Conjunctiva Clear, EOM Intact HENT: Yes: Atraumatic, Normocephalic Neck: Yes: Supple, Trachea Midline Respiratory: Yes: Regular, CTA Bilaterally Gastrointestinal: Yes: Normal Bowel Sounds, Soft. No: Tenderness Cardiovascular: Yes: Pulse Irregular JVD: yes Carotid Bruit: No PMI: Non-Displaced Heart Sounds: Yes: S1, S2 Musculoskeletal: No: Back Pain Extremities: No: Cold Edema: 2+ le edema bl with erythema bl Peripheral Pulses WNL: Yes Peripheral Pulses: 2+ Left Doralis Pedis, 2+ Right Dorsalis Pedis Integumentary: No: Jaundice Neurological: Yes: Alert, Oriented Psychiatric: No: Agitated Laboratory Last Values WBC 10.4 K/mm3 (4.0-10.0) H 09/20/18 06:20 RBC 3.90 M/mm3 (4.00-5.60) L 09/20/18 06:20 Hgb 12.8 GM/dL (11.7-16.9) 09/20/18 06:20 Hct 36.2 % (35.4-49) D 09/20/18 06:20 MCV 92.8 fl (80-96) 09/20/18 06:20 MCH 32.8 pg (25.7-33.7) 09/20/18 06:20 MCHC 35.3 g/dl (32.0-35.9) 09/20/18 06:20 RDW 14.4 % (11.9-15.9) 09/20/18 06:20 Plt Count 103 K/MM3 (134-434) L D 09/20/18 06:20 MPV 9.5 fl (7.5-11.1) 09/20/18 06:20 Absolute Neuts (auto) 9.1 K/mm3 (1.5-8.0) H 09/20/18 06:20 Neutrophils % 86.9 % (42.8-82.8) H D 09/20/18 06:20 Lymphocytes % 5.9 % (8-40) L D 09/20/18 06:20 Monocytes % 6.8 % (3.8-10.2) 09/20/18 06:20 Eosinophils % 0.1 % (0-4.5) D 09/20/18 06:20 Basophils % 0.3 % (0-2.0) 09/20/18 06:20 Nucleated RBC % 0 % (0-0) 09/20/18 06:20 PT with INR 47.40 SEC (9.7-13.0) H 09/20/18 06:20 INR 3.96 (0.83-1.09) H 09/20/18 06:20 Sodium 135 mmol/L (136-145) L 09/20/18 06:20 Potassium 3.7 mmol/L (3.5-5.1) 09/20/18 06:20 Chloride 86 mmol/L (98-107) L 09/20/18 06:20 Carbon Dioxide 33 mmol/L (21-32) H 09/20/18 06:20 Anion Gap 16 MMOL/L (8-16) 09/20/18 06:20 BUN 88 mg/dL (7-18) H 09/20/18 06:20 Creatinine 2.2 mg/dL (0.55-1.3) H 09/20/18 06:20 Creat Clearance w eGFR 28.73 (>60) 09/20/18 06:20 Random Glucose 192 mg/dL (74-106) H 09/20/18 06:20 Calcium 8.1 mg/dL (8.5-10.1) L 09/20/18 06:20 Phosphorus 3.5 mg/dL (2.5-4.9) 09/20/18 10:07 Magnesium 1.9 mg/dL (1.8-2.4) 09/20/18 10:07 Total Bilirubin 1.2 mg/dL (0.2-1) H 09/20/18 06:20 AST 33 U/L (15-37) 09/20/18 06:20 ALT 17 U/L (13-61) 09/20/18 06:20 Alkaline Phosphatase 122 U/L (45-117) H 09/20/18 06:20 Creatine Kinase 53 U/L (26-308) 09/20/18 10:07 Troponin I 0.08 ng/ml (0.00-0.05) H 09/20/18 10:07 B-Natriuretic Peptide 4465.0 pg/ml (5-450) H 09/20/18 10:07 Total Protein 6.5 g/dl (6.4-8.2) 09/20/18 06:20 Albumin 3.2 g/dl (3.4-5.0) L 09/20/18 06:20 Urine Color Straw 09/20/18 08:01 Urine Appearance Clear 09/20/18 08:01 Urine pH 6.0 (5.0-8.0) 09/20/18 08:01 Ur Specific [place] 1.006 (1.010-1.035) L 09/20/18 08:01 Urine Protein 1+ (NEGATIVE) H 09/20/18 08:01 Urine Glucose (UA) Negative (NEGATIVE) 09/20/18 08:01 Urine Ketones Negative (NEGATIVE) 09/20/18 08:01 Urine Blood 1+ (NEGATIVE) H 09/20/18 08:01 Urine Nitrite Negative (NEGATIVE) 09/20/18 08:01 Urine Bilirubin Negative (<2.0 mg/dL) 09/20/18 08:01 Urine Urobilinogen Negative mg/dL (0.2-1.0) 09/20/18 08:01 Ur Leukocyte Esterase Negative (NEGATIVE) 09/20/18 08:01 Urine WBC (Auto) <1 /hpf (3-5) 09/20/18 08:01 Urine RBC (Auto) 2 /hpf (0-3) 09/20/18 08:01 Hyaline Casts 1 /lpf 09/20/18 08:01 cxr: no congestion MIBI 07/05 (pers): no STs; small area apical isch and basal inferolateral wall; mild global LV hypo, EF 46% mibi 08/2018: lvef 66, no ischemia ecg: afib, rate ok, no ischemic changes Echo 10/07: 1. The left ventricular size is normal. 2. Overall left ventricular systolic function is normal with, an EF between 60 - 65 %. 3. LA pressure is uncertain. 4. No regional wall motion abnormalities were noted (basal inferolateral wall may be mildly hypokinetic). 5. The right ventricle is normal in size and function. 6. Left atrium is severely dilated by volume. 7. There is mild aortic regurgitation. 8. The mitral valve is normal in appearance, with no prolapse, flail leaflet, or tethered motion noted. 9. 2 separate MR jets are present: one directed anteriorly, the other central. The anterior jet hugs the antreior LA wall/interatrial septum and is not seen to wrap around the posterior LA wall. The visual appearance is of moderate mitral regurgitation, however the eccentric nature of the anterior jet may lead to underestimation of MR severity on color jet flow analysis. The peak mitral inflow velocity (0.7 m/sec) makes severe mitral regurgitation less likely. There is no systolic flow reversal present in the pulmonary vein. PISA hemisphere could not be measured. Estimated regurgitant volume by volumetric measurements yields and estimate of 35 cc. 10. Mild tricuspid regurgitation present. 11. Unable to estimate RVSP due to inadequate TR jet spectral doppler profile. echo 07/2018: nl lv/rv, lae, mild mr/tr/ar, nl rvsp a/p: 82 yo with h/o CAD s/p CABG, afib on coumadin CVA, hypertension, hyperlipidemia, IDDM, liver cancer(Chemo, 40% liver removed in 2008), who p/w sob cough, dyspnea, weakness - on broad spectrum abx for presumed HCAP, manage per primary Tremors - workup per primary, neuro chronic systolic HF - BNP similar to prior values - no congestion on CXR - cont carvedilol, holding ARB for LUIS - was on torsemide 100 mg BID and metolazone until two days ago when Cr rising, held diuretics for two days and took torsemide 50 mg x1 day prior to admission - hold torsemide as patient likely dry, restart when Cr normalizes - would avoid IVF pAFib: - remote paroxysmal AF, then persistent AF for past 2 mo - Rate controlled on coreg, continue same rx - on warfarin per inr - will consider elective DCCV once acute issues resolve CAD, S/P CABG '05: GAN TO LAD, SVG SEQUENTIAL TO DIAG-->OM; SVG TO RPDA: -cont home statin, (not on ASA, given pt on warfarin) -recent mibi in office 09/10 no ischemia, nl LVEF. -no signs acs here. HTN: - h/o labile BPs (worse MR/CHF when bp's uncontrolled, low with orthostatic sx' s at times as well) - ARB held for LUIS - bp controlled here - cont home carvedilol LUIS on CKD: -likely prerenal - Cr 2.7 on 09/17 likely 2/2 overdiuresis, now 2.2 with holding torsemide for two days, reduced dose yseterday -baseline creat 2.0-2.2 - hold diuretic as above le cellulitis: -per ID h/o hepatoma s/p surgery, chemo -monitored at [facility], with stable recurrent dz in abdominal lymph node
[2018-09-20] MEDS ORDERED: THIAMINE HCL 200 MG/2 ML VIAL ONE (17:53)
[2018-09-20] MEDS: THIAMINE HCL 200 MG/2 ML VIAL IVPB SCH ×2 (18:03→23:29)
[2018-09-20] MEDS ORDERED: CARVEDILOL 12.5 MG TABLET (FP) ONE (23:14)
[2018-09-20] MEDS: CARVEDILOL 25 MG TABLET (FP) PO SCH (23:29)
[2018-09-21] MEDS: THIAMINE HCL 200 MG/2 ML VIAL IVPB SCH ×3 (05:32→21:07)
[2018-09-21 08:41] LABS: BASO % 0.3 % (0-2.0); EOS % 1.2 % (0-4.5); HEMATOCRIT 31.7 % (35.4-49); HEMOGLOBIN 11.1 GM/dL (11.7-16.9); LYMPH % 17.7 % (8-40); MCH 32.6 pg (25.7-33.7); MEAN CELL VOLUME 93.2 fl (80-96); MEAN PLT VOLUME 9.8 fl (7.5-11.1); NEUT % 68.8 % (42.8-82.8); PLATELET COUNT 82 K/MM3 (134-434); RBC 3.41 M/mm3 (4.00-5.60); RDW 14.1 % (11.9-15.9); WHITE BLOOD COUNT 5.4 K/mm3 (4.0-10.0)
[2018-09-21 09:00] LABS: INR 3.3 (0.83-1.09); PROTHROMBIN TIME (PATIENT) 39.4 SEC (9.7-13.0)
[2018-09-21 09:03] LABS: ACTIVATED PTT 41.5 SECONDS (25.2-36.5)
[2018-09-21] MEDS: CARVEDILOL 25 MG TABLET (FP) PO SCH ×2 (09:15→21:06)
[2018-09-21 09:56] LABS: ALBUMIN 2.7 g/dl (3.4-5.0); ALK PHOS 103 U/L (45-117); ANION GAP 11 MMOL/L (8-16); BILIRUBIN,TOTAL 1.4 mg/dL (0.2-1); BLOOD UREA NITROGEN 89 mg/dL (7-18); CALCIUM 7.8 mg/dL (8.5-10.1); CHLORIDE 81 mmol/L (98-107); CO2 34 mmol/L (21-32); CREATININE 2.5 mg/dL (0.55-1.3); SGOT/AST 20 U/L (15-37); SGPT/ALT 13 U/L (13-61); SODIUM 126 mmol/L (136-145); TOT PROT 5.6 g/dl (6.4-8.2)
--- NOTE | 2018-09-21 11:00 | PN ---
Progress Note, Physician History of Present Illness: No events overnight Feels dyspnea is improving Tele: Afib 60s - Current Medication List Current Medications: Active Medications Acetaminophen (Tylenol -) 650 mg PO Q4H PRN PRN Reason: PAIN Carvedilol (Coreg -) 25 mg PO BID [facility] Last Admin: 09/21/18 09:15 Dose: 25 mg Thiamine HCl (Vitamin B1 Injection -) 250 mg IVPB TID [facility] Stop: 09/23/18 14:29 Last Admin: 09/21/18 05:32 Dose: 250 mg - Objective Vital Signs: Vital Signs Temperature 98 F 09/21/18 05:00 Pulse Rate 69 09/21/18 05:15 Respiratory Rate 21 H 09/21/18 05:00 Blood Pressure 144/70 09/21/18 05:15 O2 Sat by Pulse Oximetry (%) 94 L 09/21/18 00:30 Constitutional: Yes: Well Nourished (Lying supine), No Distress Eyes: Yes: Conjunctiva Clear HENT: Yes: WNL Neck: Yes: WNL Cardiovascular: Yes: Pulse Irregular Respiratory: Yes: CTA Bilaterally Gastrointestinal: Yes: Normal Bowel Sounds Musculoskeletal: Yes: WNL Extremities: Yes: WNL Edema: LLE: 1+, RLE: 1+ Labs: CBC, BMP 09/21/18 06:50 09/21/18 06:50 INR, PTT INR 3.30 (0.83-1.09) H 09/21/18 06:50 Assessment/Plan a/p: 82 yo with h/o CAD s/p CABG, afib on coumadin CVA, hypertension, hyperlipidemia, IDDM, liver cancer(Chemo, 40% liver removed in 2008), who p/w sob chronic systolic HF - BNP similar to prior values - no congestion on CXR - cont carvedilol, holding ARB for LUIS - was on torsemide 100 mg BID and metolazone until two days ago when Cr rising, held diuretics for two days and took torsemide 50 mg x1 day prior to admission - hold torsemide as patient likely dry, restart when Cr normalizes - would avoid IVF -3/2: Appearing near euvolemic. Agree with holding Torsemide and follow Creat. pAFib: - remote paroxysmal AF, then persistent AF for past 2 mo - Rate controlled on coreg, continue same rx - 3/2: INR 3.3, holding warfarin - Considering elective DCCV once acute issues resolve CAD, S/P CABG '05: GAN TO LAD, SVG SEQUENTIAL TO DIAG-->OM; SVG TO RPDA: -cont home statin, (not on ASA, given pt on warfarin) -recent mibi in office 09/10 no ischemia, nl LVEF. -no signs acs here. HTN: - h/o labile BPs (worse MR/CHF when bp's uncontrolled, low with orthostatic sx' s at times as well) - ARB held for LUIS - bp controlled here - cont home carvedilol LUIS on CKD: -likely prerenal - Cr 2.7 on 09/17 likely 2/2 overdiuresis, now 2.2 with holding torsemide for two days, reduced dose ys -baseline creat 2.0-2.2 - 3/2 Creast 2.5. hold diuretic as above
[2018-09-21 11:08] LABS: GLUCOSE,RANDOM 301 mg/dL (74-106); POTASSIUM 2.9 mmol/L (3.5-5.1)
[2018-09-21] MEDS ORDERED: KCL 10 MEQ IVPB 10 MEQ/100 ML INFUS.BAG IVPB SCH (12:00)
--- NOTE | 2018-09-21 12:10 | PN ---
Progress Note, Physician Chief Complaint: AWAKE ALERT EVENTS AND NOTES REVIEWED - Current Medication List Current Medications: Active Medications Acetaminophen (Tylenol -) 650 mg PO Q4H PRN PRN Reason: PAIN Carvedilol (Coreg -) 25 mg PO BID [facility] Last Admin: 09/21/18 09:15 Dose: 25 mg Potassium Chloride (Potassium Chloride 10 Meq Premix Ivpb -) 10 meq in 100 mls @ 100 mls/hr IVPB Q60M [facility] Stop: 09/21/18 13:59 Insulin Aspart (Novolog Vial Sliding Scale -) 1 vial SQ ACHS [facility]; Protocol Thiamine HCl (Vitamin B1 Injection -) 250 mg IVPB TID [facility] Stop: 09/23/18 14:29 Last Admin: 09/21/18 05:32 Dose: 250 mg - Objective Vital Signs: Vital Signs Temperature 97.9 F 09/21/18 10:00 Pulse Rate 57 L 09/21/18 10:00 Respiratory Rate 20 09/21/18 10:00 Blood Pressure 152/69 09/21/18 10:00 O2 Sat by Pulse Oximetry (%) 96 09/21/18 09:00 Constitutional: Yes: Mild Distress Eyes: Yes: WNL HENT: Yes: WNL Neck: Yes: WNL Cardiovascular: Yes: Regular Rate and Rhythm Respiratory: Yes: WNL Gastrointestinal: Yes: WNL Genitourinary: Yes: WNL Musculoskeletal: Yes: Muscle Weakness Extremities: Yes: WNL Edema: No Peripheral Pulses WNL: Yes Integumentary: Yes: WNL Wound/Incision: Yes: Clean/Dry Neurological: Yes: Other ...Motor Strength: WNL Psychiatric: Yes: WNL Labs: CBC, BMP 09/21/18 06:50 09/21/18 06:50 INR, PTT INR 3.30 (0.83-1.09) H 09/21/18 06:50 Problem List - Problems (1) Jerking movements of extremities Code(s): R25.2 - CRAMP AND SPASM (2) PNA (pneumonia) Code(s): J18.9 - PNEUMONIA, UNSPECIFIED ORGANISM Qualifiers: Pneumonia type: due to unspecified organism Laterality: left Lung location: lower lobe of lung Qualified Code(s): J18.1 - Lobar pneumonia, unspecified organism (3) Weakness Code(s): R53.1 - WEAKNESS (4) Abdominal pain Code(s): R10.9 - UNSPECIFIED ABDOMINAL PAIN Qualifiers: Abdominal location: generalized Qualified Code(s): R10.84 - Generalized abdominal pain (5) Acute CHF (congestive heart failure) Code(s): I50.9 - HEART FAILURE, UNSPECIFIED Qualifiers: Heart failure type: unspecified Qualified Code(s): I50.9 - Heart failure, unspecified (6) Afib Code(s): I48.91 - UNSPECIFIED ATRIAL FIBRILLATION (7) Hypernatremia Code(s): E87.0 - HYPEROSMOLALITY AND HYPERNATREMIA (8) Hypokalemia Code(s): E87.6 - HYPOKALEMIA Assessment/Plan REPLETE ELECTROLYTES KCL IV X 2 RUNS PO X 1 20MEQ THEN CHECK LEVELS TODAY AND TOMORROW NEUROLOGY AND PT EVAL OOB TO CHAIR WITH ASSIST IV ABX FOR PNA SSI/CORRECT HYPERGLYCEMIA CAUSING HYPONATREMIA
--- NOTE | 2018-09-21 12:13 | CONSULT ---
Consult Consult Specialty:: Nephrology ( [facility]) Referred by:: Dr. Borges Reason for Consultation:: Worsening Kideny failure, hypokalemia, hyponatremia - History of Present Illness Chief Complaint: The patient 83 y/o male, known to us admitted with couh, weakness and short of breath. History of Present Illness: This is a 83 y/o male with Chr Afib on coumadin, CAD admitted w/ cough, sob, tremors, weakness. Had recent admission for for CHF exacerbation, was diuresed with high doses of Torsemide and Metolazone. These were since modified. - History Source History Provided By: Patient Limitations to Obtaining History: No Limitations - Past Medical History Cardio/Vascular: Yes: AFIB, CAD, CHF, HTN, Hyperlipdemia Gastrointestinal: Yes: Cancer (primary liver) Hepatobiliary: Yes: Other (primary liver cancer s/p resection and now recurr in lymph nodes on chemo (nexavar)) Renal/: Yes: Renal Failure Endocrine: Yes: Diabetes Mellitus (insulin dependent) - Past Surgical History Past Surgical History: Yes: CABG (partial liver resection) - Alcohol/Substance Use Hx Alcohol Use: No - Smoking History Smoking history: Never smoked Have you smoked in the past 12 months: No - Social History Usual Living Arrangement: With Spouse ADL: Independent History of Recent Travel: No Home Medications - Allergies Allergies/Adverse Reactions: Allergies Allergy/AdvReac Type Severity Reaction Status Date / Time No Known Drug Allergies Allergy Verified 09/20/18 05:49 - Home Medications Home Medications: Ambulatory Orders Lantus (10mL VIAL) - 8 units SQ HS 11/03/16 Carvedilol [Coreg -] 25 mg PO BID #60 tablet 08/24/18 Clonidine Patch [Catapres Tts Patch -] 0.2 mg TD Q7D@1000 #4 patch.tdwk Cephalexin Monohydrate [Keflex -] 500 mg PO BID #4 capsule 09/11/18 Furosemide [Lasix -] 80 mg PO BID@0600,1400 #120 tablet 09/11/18 Insulin Aspart [Novolog] 0 unit SQ TID #1 ea 09/11/18 Polyethylene Glycol 3350 [Miralax 119 gm Btl -] 17 gm PO DAILY #1 bottle Simvastatin [Zocor -] 20 mg PO HS #30 tab 09/11/18 Tamsulosin HCl 0.4 mg PO DAILY #30 tab 09/11/18 Warfarin Na [Coumadin -] 2 mg PO SUMOTUTHFRSA #30 tab 09/11/18 Warfarin Na [Coumadin -] 3 mg PO We@1800 #10 tablet 09/11/18 Tamsulosin HCl [Flomax -] 0.4 mg PO DAILY@0830 #30 cap.er.24h MDD 1 09/12/18 Torsemide 50 mg PO DAILY 09/21/18 Review of Systems - Review of Systems Constitutional: reports: Unintentional Wgt. Loss, Weakness Eyes: reports: No Symptoms HENT: reports: No Symptoms Neck: reports: No Symptoms Cardiovascular: reports: No Symptoms Respiratory: reports: Cough, SOB on Exertion Gastrointestinal: denies: Abdominal Pain Genitourinary: reports: Frequency. denies: Dysuria, Flank Pain Neurological: reports: No Symptoms Endocrine: reports: No Symptoms Hematology/Lymphatic: reports: No Symptoms Physical Exam Vital Signs: Vital Signs Temperature 97.9 F 09/21/18 10:00 Pulse Rate 57 L 09/21/18 10:00 Respiratory Rate 20 09/21/18 10:00 Blood Pressure 152/69 09/21/18 10:00 O2 Sat by Pulse Oximetry (%) 96 09/21/18 09:00 Constitutional: Yes: Anxious Eyes: Yes: Conjunctiva Clear HENT: Yes: Atraumatic Neck: Yes: Trachea Midline Cardiovascular: Yes: Tachycardia, S1, S2 Respiratory: Yes: CTA Bilaterally, Diminished Gastrointestinal: Yes: Normal Bowel Sounds, Soft Renal/: No: Bladder Distention, CVA Tenderness - Left, CVA Tenderness - Right Musculoskeletal: Yes: Back Pain Labs: CBC, BMP 09/21/18 06:50 09/21/18 06:50 Problem List - Problems (1) CHF (congestive heart failure) Code(s): I50.9 - HEART FAILURE, UNSPECIFIED (2) Hypokalemia Code(s): E87.6 - HYPOKALEMIA (3) Weakness Code(s): R53.1 - WEAKNESS (4) Acute kidney failure Code(s): N17.9 - ACUTE KIDNEY FAILURE, UNSPECIFIED (5) Afib Code(s): I48.91 - UNSPECIFIED ATRIAL FIBRILLATION (6) Anemia Code(s): D64.9 - ANEMIA, UNSPECIFIED (7) BPH (benign prostatic hyperplasia) Code(s): N40.0 - BENIGN PROSTATIC HYPERPLASIA WITHOUT LOWER URINRY TRACT SYMP (8) CKD (chronic kidney disease) Code(s): N18.9 - CHRONIC KIDNEY DISEASE, UNSPECIFIED Qualifiers: Chronic kidney disease stage: unspecified stage Qualified Code(s): N18.9 - Chronic kidney disease, unspecified (9) Diabetes mellitus, insulin dependent (IDDM), uncontrolled Code(s): E10.65 - TYPE 1 DIABETES MELLITUS WITH HYPERGLYCEMIA Assessment/Plan This is a 83 y/o male with Chr Afib on coumadin, CAD admitted w/ cough, sob, tremors, weakness. Had recent admission for for CHF exacerbation, was diuresed with high doses of Torsemide and Metolazone. These were since modified. The patient has lost 11 lbs since his last discharge a few days ago, possibly due to over-diuresis. Hyponatremia possibly related to the Thiazide diuretics, with resultant defect in sodium homeostasis. This is further offset by the patient bein on heavy doses Torsemide. Hypokalemia may also be reflective of Kaliuresis from the diuretics. LUIS, superimposed on CKD. The Luis due to hemodynamic changes, renal hypoperfusion and possible periods of Hypotension. PLAN: Hold off use of all diuretics. Will not start Thiazide diuretics unless there is a specific need for the same. KCL supplements as ordered. Will check Mg levels. Thank you. Will follow with you. Aparna Mcghee MD
--- NOTE | 2018-09-21 12:17 | PN ---
Progress Note (short form) - Note Progress Note: ID consult dictated imp/reccd 83 you man recently hospitalized for chf and lower extremity cellulitis readmitted with weakness, tremors and dry cough (per ) patient has lost 5 kilograms since discharge he denies fevers cxray is unchanged received vanco/zosyn in ED for pneumonia found to be hyponatremic with worsening renal failure UA negative no cellulitis suggest influenza swab chest ct no contrast I do not think he has pneumonia would hold further antibiotics
[2018-09-21] MEDS: INSULIN SLIDING SCALE (NOVOLOG) 1 VIAL SQ SCH ×3 (12:19→21:14)
--- NOTE | 2018-09-21 14:02 | CONS ---
DATE OF CONSULTATION: DATE OF DICTATION: 09/21/2018 REQUESTING PHYSICIAN: Idris Borges MD HISTORY OF PRESENT ILLNESS: This is an 83-year-old man who was recently in the from the to the 12 of September, at which time, he had CHF, and he has cellulitis on top of his chronic venous stasis of his legs. He improved on cefazolin and was switched to Keflex, which he took for 2 days after discharge. He was also on aggressive diuresis, which was continued after discharge with changes in his diuretic doses after discharge. He was readmitted yesterday with increasing weakness, reports dry cough the patient denies, no fevers, and tremors. He has lost 5 kg since his discharge on the . He is also hyponatremic with sodium of 126, hyperkalemic with a potassium at 2.9 and in acute renal failure, the glucose of 301 and a creatinine of 2.5. I am asked to see him for possible pneumonia. He is awake and alert. He notes that he has had these jerking movements since his prior discharge. PAST MEDICAL HISTORY: Notable for atrial fibrillation, coronary artery disease, CHF, hypertension, hyperlipidemia. 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 He has a history of renal insufficiency, diabetes, and he has had a CABG, as well as partial liver resection. He has a history of venous stasis and has had cellulitis, as well. SOCIAL HISTORY: He lives with his . There is no history of any cigarette or substance use. There is no recent travel. ALLERGIES: He has no known drug allergies. MEDICATIONS: Include insulin, Coreg, Catapres, Keflex, torsemide, MiraLAX, Zocor, tamsulosin, warfarin. REVIEW OF SYSTEMS: Notable for generalized weakness and this tremor and jerkiness in his arms and legs, which he reports as new. PHYSICAL EXAMINATION General: He is generally weak-appearing. Vital signs: Temperature is 97.9; pulse of 56, blood pressure 108/48, respiratory rate 20, saturating 98% on room air. HEENT: Head is normocephalic. His eyes are anicteric. Neck: Supple. Lungs: Have diminished breath sounds at the bases. Heart: Regular rate and rhythm. Abdomen: Soft, nontender. Extremities: Chronic venous stasis changes of both his lower legs. DIAGNOSTIC DATA: White count on admission was 10.4, this morning it is 5.4, hemoglobin 11.1, platelets are 82,000. INR is 3.3. BUN 88, creatinine 2.5, sodium 126, potassium 2.9. Urinalysis negative. No cultures have been sent. He received vancomycin and Zosyn in the emergency room. He had a head CT done that showed generalized volume loss with some encephalomalacia of the right occipital lobe. He had a chest x-ray that showed no focal infiltrate. IMPRESSION: At this time, I do not find anything to suggest acute pneumonia. Clinically, I would suspect that his generalized weakness is due to his perhaps over-diuresis. Per Cardiology, they are holding his diuretics at this time, as he appears dry. I would obtain an influenza antigen if indeed he is coughing, though there was no evidence of cough while I evaluated the patient. As well, would obtain a chest CT without contrast to rule out a retrocardiac infiltrate. I would not treat him with further antibiotics at this time. Would observe. Would follow up with Renal and Cardiology. AHMET KOROMA M.D. [id number]
[2018-09-21] MEDS: POTASSIUM CHLORIDE ORAL LIQUID 20 MEQ/15 ML PO SCH ×2 (14:46→17:05)
[2018-09-21] MEDS ORDERED: PT OWN MED DRAWER 7, Y5N ONE (17:00)
[2018-09-21] MEDS: POLYETHYLENE GLYCOL 3350 119 GM BTL PO SCH (17:05)
[2018-09-21 19:27] LABS: ANION GAP 10 MMOL/L (8-16); BLOOD UREA NITROGEN 89 mg/dL (7-18); CALCIUM 8.1 mg/dL (8.5-10.1); CHLORIDE 87 mmol/L (98-107); CO2 33 mmol/L (21-32); CREATININE 2.7 mg/dL (0.55-1.3); GLUCOSE,RANDOM 205 mg/dL (74-106); POTASSIUM 3.9 mmol/L (3.5-5.1); SODIUM 129 mmol/L (136-145)
[2018-09-21] MEDS: ATORVASTATIN CA 20 MG TABLET (FP) PO SCH (21:07)
[2018-09-21] MEDS: INSULIN (LEVEMIR) 100 UNITS/ML UNITS SQ SCH (21:13)
[2018-09-22 04:09] LABS: SERUM IRON SATURATION 17 % (15-55); TOTAL IRON BINDING CAPACITY 176 ug/dL (250-450); UIBC 146 ug/dL (111-343)
[2018-09-22] MEDS: INSULIN SLIDING SCALE (NOVOLOG) 1 VIAL SQ SCH ×4 (06:45→21:53)
[2018-09-22] MEDS: THIAMINE HCL 200 MG/2 ML VIAL IVPB SCH ×3 (06:55→21:34)
[2018-09-22 08:27] LABS: INR 2.79 (0.83-1.09); PROTHROMBIN TIME (PATIENT) 33.3 SEC (9.7-13.0)
[2018-09-22 08:36] LABS: ALBUMIN 2.7 g/dl (3.4-5.0); ALK PHOS 106 U/L (45-117); ANION GAP 5 MMOL/L (8-16); BILIRUBIN,TOTAL 1.4 mg/dL (0.2-1); BLOOD UREA NITROGEN 84 mg/dL (7-18); CALCIUM 8.3 mg/dL (8.5-10.1); CHLORIDE 92 mmol/L (98-107); CO2 36 mmol/L (21-32); CREATININE 2.4 mg/dL (0.55-1.3); GLUCOSE,RANDOM 163 mg/dL (74-106); MAGNESIUM 2.8 mg/dL (1.8-2.4); POTASSIUM 3.7 mmol/L (3.5-5.1); SGOT/AST 20 U/L (15-37); SGPT/ALT 13 U/L (13-61); SODIUM 133 mmol/L (136-145); TOT PROT 5.8 g/dl (6.4-8.2)
[2018-09-22] MEDS: TAMSULOSIN HCL 0.4 MG CAP PO SCH (09:10)
[2018-09-22] MEDS: CARVEDILOL 25 MG TABLET (FP) PO SCH ×2 (09:10→21:34)
[2018-09-22] MEDS: POLYETHYLENE GLYCOL 3350 119 GM BTL PO SCH (09:10)
--- NOTE | 2018-09-22 10:46 | PN ---
Progress Note, Physician Chief Complaint: AWAKE ALERT C/O DRY COUGH EVENTS AND NOTES REVIEWED - Current Medication List Current Medications: Active Medications Acetaminophen (Tylenol -) 650 mg PO Q4H PRN PRN Reason: PAIN Atorvastatin Calcium (Lipitor -) 20 mg PO [facility] Last Admin: 09/21/18 21:07 Dose: 20 mg Carvedilol (Coreg -) 25 mg PO BID [facility] Last Admin: 09/22/18 09:10 Dose: 25 mg Insulin Aspart (Novolog Vial Sliding Scale -) 1 vial SQ [facility]; Protocol Last Admin: 09/22/18 06:45 Dose: Not Given Insulin Detemir (Levemir Vial) 8 units SQ [facility] Last Admin: 09/21/18 21:13 Dose: 8 units Polyethylene Glycol (Miralax (For Daily Use) -) 17 gm PO DAILY [facility] Last Admin: 09/22/18 09:10 Dose: 17 gm Tamsulosin HCl (Flomax -) 0.4 mg PO DAILY@0830 [facility] Last Admin: 09/22/18 09:10 Dose: 0.4 mg Thiamine HCl (Vitamin B1 Injection -) 250 mg IVPB TID [facility] Stop: 09/23/18 14:29 Last Admin: 09/22/18 06:55 Dose: 250 mg - Objective Vital Signs: Vital Signs Temperature 98.2 F 09/22/18 10:00 Pulse Rate 60 09/22/18 10:00 Respiratory Rate 20 09/22/18 10:00 Blood Pressure 141/51 L 09/22/18 10:00 O2 Sat by Pulse Oximetry (%) 94 L 09/22/18 09:00 Constitutional: Yes: Mild Distress Eyes: Yes: WNL HENT: Yes: WNL Neck: Yes: WNL Cardiovascular: Yes: Pulse Irregular Respiratory: Yes: Cough, Diminished Gastrointestinal: Yes: Soft Genitourinary: Yes: WNL Musculoskeletal: Yes: Muscle Weakness Edema: Yes Edema: LLE: Trace, RLE: Trace Neurological: Yes: Pre-Existing Deficit, Weakness ...Motor Strength: LLE, RLE Labs: CBC, BMP 09/21/18 06:50 09/22/18 06:18 INR, PTT INR 2.79 (0.83-1.09) H 09/22/18 06:18 Problem List - Problems (1) Jerking movements of extremities Code(s): R25.2 - CRAMP AND SPASM (2) PNA (pneumonia) Code(s): J18.9 - PNEUMONIA, UNSPECIFIED ORGANISM Qualifiers: Pneumonia type: due to unspecified organism Laterality: left Lung location: lower lobe of lung Qualified Code(s): J18.1 - Lobar pneumonia, unspecified organism (3) Weakness Code(s): R53.1 - WEAKNESS (4) Abdominal pain Code(s): R10.9 - UNSPECIFIED ABDOMINAL PAIN Qualifiers: Abdominal location: generalized Qualified Code(s): R10.84 - Generalized abdominal pain (5) Acute CHF (congestive heart failure) Code(s): I50.9 - HEART FAILURE, UNSPECIFIED Qualifiers: Heart failure type: unspecified Qualified Code(s): I50.9 - Heart failure, unspecified (6) Afib Code(s): I48.91 - UNSPECIFIED ATRIAL FIBRILLATION (7) Hypernatremia Code(s): E87.0 - HYPEROSMOLALITY AND HYPERNATREMIA (8) Hypokalemia Code(s): E87.6 - HYPOKALEMIA Assessment/Plan NEPHROLOGY AND CARDIOLOGY EVAL APPRECIATED COUMADIN 1MG FOR NOW CHECK INR NEBS/COUGH SUPPRESSANT CXR OOB TO CHAIR ELECTROLYTES IMPROVING SNF PLACEMENT
--- NOTE | 2018-09-22 11:11 | PN ---
Progress Note, Physician History of Present Illness: Breathing improving Now has a non-productive cough Tele: afib 80s - Current Medication List Current Medications: Active Medications Acetaminophen (Tylenol -) 650 mg PO Q4H PRN PRN Reason: PAIN Atorvastatin Calcium (Lipitor -) 20 mg PO HS [facility] Last Admin: 09/21/18 21:07 Dose: 20 mg Carvedilol (Coreg -) 25 mg PO BID [facility] Last Admin: 09/22/18 09:10 Dose: 25 mg Insulin Aspart (Novolog Vial Sliding Scale -) 1 vial SQ [facility]; Protocol Last Admin: 09/22/18 06:45 Dose: Not Given Insulin Detemir (Levemir Vial) 8 units SQ [facility] Last Admin: 09/21/18 21:13 Dose: 8 units Polyethylene Glycol (Miralax (For Daily Use) -) 17 gm PO DAILY [facility] Last Admin: 09/22/18 09:10 Dose: 17 gm Tamsulosin HCl (Flomax -) 0.4 mg PO DAILY@0830 [facility] Last Admin: 09/22/18 09:10 Dose: 0.4 mg Thiamine HCl (Vitamin B1 Injection -) 250 mg IVPB TID [facility] Stop: 09/23/18 14:29 Last Admin: 09/22/18 06:55 Dose: 250 mg - Objective Vital Signs: Vital Signs Temperature 98.2 F 09/22/18 10:00 Pulse Rate 60 09/22/18 10:00 Respiratory Rate 20 09/22/18 10:00 Blood Pressure 141/51 L 09/22/18 10:00 O2 Sat by Pulse Oximetry (%) 94 L 09/22/18 09:00 Constitutional: Yes: No Distress, Calm Eyes: Yes: WNL HENT: Yes: WNL Neck: Yes: WNL Cardiovascular: Yes: Pulse Irregular Respiratory: Yes: CTA Bilaterally Gastrointestinal: Yes: WNL Musculoskeletal: Yes: WNL Extremities: Yes: Erythema Edema: LLE: 1+, RLE: 1+ Labs: CBC, BMP 09/21/18 06:50 09/22/18 06:18 INR, PTT INR 2.79 (0.83-1.09) H 09/22/18 06:18 Assessment/Plan /p: 82 yo with h/o CAD s/p CABG, afib on coumadin CVA, hypertension, hyperlipidemia, IDDM, liver cancer(Chemo, 40% liver removed in 2008), who p/w sob chronic systolic HF - BNP similar to prior values - no congestion on CXR - cont carvedilol, holding ARB for LUIS - was on torsemide 100 mg BID and metolazone until two days ago when Cr rising, held diuretics for two days and took torsemide 50 mg x1 day prior to admission - hold torsemide as patient likely dry, restart when Cr normalizes - would avoid IVF -3: Appearing near euvolemic. Agree with holding Torsemide and follow Creat. -3/3: Cough, doubt pulmonary venous congestion, but will get CXR today and BNP to help guide resuming diuresis. Continue to hold Toresemide as Creat continues to decline 2.4 today. pAFib: - remote paroxysmal AF, then persistent AF for past 2 mo - Rate controlled on coreg, continue same rx - 09/21: INR 3.3, holding warfarin -09/22: INR 2.79. Would resume Coumadin 1mg tonight - Considering elective DCCV once acute issues resolve CAD, S/P CABG '05: GAN TO LAD, SVG SEQUENTIAL TO DIAG-->OM; SVG TO RPDA: -cont home statin, (not on ASA, given pt on warfarin) -recent mibi in office 09/10 no ischemia, nl LVEF. -no signs acs here. HTN: - h/o labile BPs (worse MR/CHF when bp's uncontrolled, low with orthostatic sx' s at times as well) - ARB held for LUIS - bp controlled here - cont home carvedilol LUIS on CKD: -likely prerenal - Cr 2.7 on 09/17 likely 2/2 overdiuresis, now 2.2 with holding torsemide for two days, reduced dose yseterday -baseline creat 2.0-2.2 - 3/2 Creast 2.7. hold diuretic as above -33 Creat 2.4. Continue to hold
--- NOTE | 2018-09-22 12:52 | PN ---
Progress Note, Physician Chief Complaint: The patient seen and examined in his bed. Seems comfortable. Still with a cough, but better. History of Present Illness: This is a 83 y/o male with Chr Afib on coumadin, CAD admitted w/ cough, sob, tremors, weakness. Had recent admission for for CHF exacerbation, was diuresed with high doses of Torsemide and Metolazone. These were discontinued since admission. - Current Medication List Current Medications: Active Medications Acetaminophen (Tylenol -) 650 mg PO Q4H PRN PRN Reason: PAIN Atorvastatin Calcium (Lipitor -) 20 mg PO HS [facility] Last Admin: 09/21/18 21:07 Dose: 20 mg Carvedilol (Coreg -) 25 mg PO BID [facility] Last Admin: 09/22/18 09:10 Dose: 25 mg Insulin Aspart (Novolog Vial Sliding Scale -) 1 vial SQ [facility]; Protocol Last Admin: 09/22/18 11:13 Dose: 8 units Insulin Detemir (Levemir Vial) 8 units SQ [facility] Last Admin: 09/21/18 21:13 Dose: 8 units Polyethylene Glycol (Miralax (For Daily Use) -) 17 gm PO DAILY [facility] Last Admin: 09/22/18 09:10 Dose: 17 gm Tamsulosin HCl (Flomax -) 0.4 mg PO DAILY@0830 [facility] Last Admin: 09/22/18 09:10 Dose: 0.4 mg Thiamine HCl (Vitamin B1 Injection -) 250 mg IVPB TID [facility] Stop: 09/23/18 14:29 Last Admin: 09/22/18 06:55 Dose: 250 mg Warfarin Sodium (Coumadin -) 1 mg PO ONCE@1800 [facility] Stop: 09/22/18 18:01 - Objective Vital Signs: Vital Signs Temperature 98.2 F 09/22/18 10:00 Pulse Rate 60 09/22/18 10:00 Respiratory Rate 20 09/22/18 10:00 Blood Pressure 141/51 L 09/22/18 10:00 O2 Sat by Pulse Oximetry (%) 94 L 09/22/18 09:00 Constitutional: Yes: No Distress, Anxious HENT: Yes: Atraumatic Neck: Yes: Trachea Midline Cardiovascular: Yes: S1, S2 Respiratory: Yes: CTA Bilaterally Gastrointestinal: Yes: Normal Bowel Sounds, Soft Edema: LLE: Trace, RLE: Trace Labs: CBC, BMP 09/21/18 06:50 09/22/18 06:18 INR, PTT INR 2.79 (0.83-1.09) H 09/22/18 06:18 Problem List - Problems (1) CHF (congestive heart failure) Code(s): I50.9 - HEART FAILURE, UNSPECIFIED (2) Hypokalemia Code(s): E87.6 - HYPOKALEMIA (3) Weakness Code(s): R53.1 - WEAKNESS (4) Acute kidney failure Code(s): N17.9 - ACUTE KIDNEY FAILURE, UNSPECIFIED (5) Afib Code(s): I48.91 - UNSPECIFIED ATRIAL FIBRILLATION (6) Anemia Code(s): D64.9 - ANEMIA, UNSPECIFIED (7) BPH (benign prostatic hyperplasia) Code(s): N40.0 - BENIGN PROSTATIC HYPERPLASIA WITHOUT LOWER URINRY TRACT SYMP (8) CKD (chronic kidney disease) Code(s): N18.9 - CHRONIC KIDNEY DISEASE, UNSPECIFIED Qualifiers: Chronic kidney disease stage: unspecified stage Qualified Code(s): N18.9 - Chronic kidney disease, unspecified (9) Diabetes mellitus, insulin dependent (IDDM), uncontrolled Code(s): E10.65 - TYPE 1 DIABETES MELLITUS WITH HYPERGLYCEMIA Assessment/Plan This is a 83 y/o male with Chr Afib on coumadin, CAD admitted w/ cough, sob, tremors, weakness. Had recent admission for for CHF exacerbation, was diuresed with high doses of Torsemide and Metolazone. These were since modified. The patient has lost 11 lbs since his last discharge a few days ago, possibly due to over-diuresis. Hyponatremia possibly related to the Thiazide diuretics, with resultant defect in sodium homeostasis. Serum Na improving. Hypokalemia may also be reflective of Kaliuresis from the diuretics. Stable now. LUIS, superimposed on CKD. The LUIS due to hemodynamic changes, renal hypoperfusion and possible periods of Hypotension. Azotemia starting to improve. PLAN: Hold off use of all diuretics. Discussed with Fixed Assets Accountant, Dr. Dinh, who concurs. Will not start Thiazide diuretics unless there is a specific need for the same. KCL supplements as ordered. Thank you. Will follow with you. Aparna Mcghee MD
--- NOTE | 2018-09-22 15:07 | PN ---
Progress Note (short form) - Note Progress Note: continued cough chest ct with small left LL infiltrate Vital Signs Period Temp Pulse Resp BP Sys/Gregory Pulse Ox Last 24 Hr 97.9 F-98.4 F 60-70 16-20 133-146/51-70 94-96 cor-rrr lungs clear abd soft,nt ext venous stasis CBC, BMP 09/21/18 06:50 09/22/18 06:18 imp/reccd cough chest ct small LLL infiltrate suggest influenza swab urine antigens for pneumonia nares swab for MRSA start zosyn
[2018-09-22] MEDS ORDERED: guaiFENesin/D-METHORPHAN HB 10 ML UNIT-DOSE CUPS PO PRN (15:13)
[2018-09-22] MEDS ORDERED: guaiFENesin/D-M SUGAR-FREE/ACLHOL-FREE 118 ML BOTTLE PO PRN (15:13)
[2018-09-22] MEDS ORDERED: PHENOL 177 ML SPRAY BOTTLE MM PRN (15:58)
[2018-09-22] MEDS ORDERED: BENZOCAINE/MENTH/CETYLPYRD CL 1 EACH LOZENGE MM PRN (15:58)
[2018-09-22] MEDS ORDERED: PIPERACILLIN/TAZOBACTAM 2.25 GM VIAL IVPB ONE (16:24)
[2018-09-22] MEDS ORDERED: DEXTROSE 5%-WATER - 50 ML IVPB ONE (16:24)
[2018-09-22] MEDS: PIPERACILLIN/TAZOB 2.25 GM 2.25 GM in DEXTROSE 5%-WATER - 50 ML IVPB SCH ×2 (16:27→17:24)
[2018-09-22] MEDS ORDERED: WARFARIN NA 1 MG TABLET (FP) PO ONE (18:00)
[2018-09-22] MEDS: guaiFENesin 200 MG/10 ML 10 ML UNIT-DOSE CUPS PO PRN (18:14)
[2018-09-22] MEDS: ATORVASTATIN CA 20 MG TABLET (FP) PO SCH (21:34)
[2018-09-22] MEDS: INSULIN (LEVEMIR) 100 UNITS/ML UNITS SQ SCH (21:54)
[2018-09-23] MEDS ORDERED: DEXTROSE 5%-WATER - 50 ML IVPB ONE ×3 (02:03→17:23)
[2018-09-23] MEDS ORDERED: PIPERACILLIN/TAZOBACTAM 2.25 GM VIAL IVPB ONE ×3 (02:03→17:23)
[2018-09-23] MEDS: PIPERACILLIN/TAZOB 2.25 GM 2.25 GM in DEXTROSE 5%-WATER - 50 ML IVPB SCH ×3 (02:07→17:26)
[2018-09-23] MEDS: INSULIN SLIDING SCALE (NOVOLOG) 1 VIAL SQ SCH ×4 (06:52→23:06)
[2018-09-23] MEDS: THIAMINE HCL 200 MG/2 ML VIAL IVPB SCH ×2 (06:52→14:12)
[2018-09-23 07:18] LABS: INR 2.36 (0.83-1.09); PROTHROMBIN TIME (PATIENT) 28.1 SEC (9.7-13.0)
[2018-09-23 07:30] LABS: ALBUMIN 2.8 g/dl (3.4-5.0); ALK PHOS 111 U/L (45-117); ANION GAP 7 MMOL/L (8-16); BLOOD UREA NITROGEN 71 mg/dL (7-18); CALCIUM 8.4 mg/dL (8.5-10.1); CHLORIDE 95 mmol/L (98-107); CO2 33 mmol/L (21-32); CREATININE 2.3 mg/dL (0.55-1.3); GLUCOSE,RANDOM 149 mg/dL (74-106); SGOT/AST 19 U/L (15-37); SGPT/ALT 13 U/L (13-61); SODIUM 134 mmol/L (136-145)
[2018-09-23] MEDS: CARVEDILOL 25 MG TABLET (FP) PO SCH ×2 (10:00→23:00)
[2018-09-23] MEDS: TAMSULOSIN HCL 0.4 MG CAP PO SCH (10:00)
[2018-09-23] MEDS: POLYETHYLENE GLYCOL 3350 119 GM BTL PO SCH (10:01)
[2018-09-23] MEDS: guaiFENesin 200 MG/10 ML 10 ML UNIT-DOSE CUPS PO PRN (10:02)
--- NOTE | 2018-09-23 11:53 | PN ---
Progress Note (short form) - Note Progress Note: Renal follow up for LUIS on CKD Pt seen and examined at the bedside reprots feeling better cough is resolved no chest pain or sob no N/V/D making urine, denies any flank pain Vital Signs Temperature 97.9 F 09/23/18 10:00 Pulse Rate 72 09/23/18 10:00 Respiratory Rate 20 09/23/18 10:00 Blood Pressure 147/50 L 09/23/18 10:00 O2 Sat by Pulse Oximetry (%) 96 09/23/18 09:00 Intake & Output 09/20/18 09/21/18 09/22/18 09/23/18 23:59 23:59 23:59 23:59 Intake Total 1060 460 300 Output Total 300 300 300 Balance -300 1060 160 0 Weight 70.307 kg 68.13 kg NAD no LE edema CBC, BMP 09/21/18 06:50 09/23/18 05:30 Current Medications Acetaminophen (Tylenol -) 650 mg PO Q4H PRN PRN Reason: PAIN Atorvastatin Calcium (Lipitor -) 20 mg PO HS [facility] Last Admin: 09/22/18 21:34 Dose: 20 mg Benzocaine/Menthol (Cepacol Lozenge -) 1 each MM PRN PRN PRN Reason: SORE THROAT Last Admin: 09/22/18 21:37 Dose: 1 each Carvedilol (Coreg -) 25 mg PO BID [facility] Last Admin: 09/23/18 10:00 Dose: 25 mg Guaifenesin (Robitussin -) 10 ml PO Q4H PRN PRN Reason: COUGH Last Admin: 09/23/18 10:02 Dose: 10 ml Piperacillin Sod/Tazobactam (Sod 2.25 gm/ Dextrose) 50 mls @ 100 mls/hr IVPB Q8H-[facility]; Protocol Last Admin: 09/23/18 09:59 Dose: 100 mls/hr Insulin Aspart (Novolog Vial Sliding Scale -) 1 vial SQ [facility]; Protocol Last Admin: 09/23/18 11:43 Dose: 10 units Insulin Detemir (Levemir Vial) 8 units SQ [facility] Last Admin: 09/22/18 21:54 Dose: 8 units Phenol/Menthol (Chloraseptic -) 1 spray MM Q6H PRN PRN Reason: SORE THROAT Polyethylene Glycol (Miralax (For Daily Use) -) 17 gm PO DAILY [facility] Last Admin: 09/23/18 10:01 Dose: 17 gm Tamsulosin HCl (Flomax -) 0.4 mg PO DAILY@0830 [facility] Last Admin: 09/23/18 10:00 Dose: 0.4 mg Thiamine HCl (Vitamin B1 Injection -) 250 mg IVPB TID [facility] Stop: 09/23/18 14:29 Last Admin: 09/23/18 06:52 Dose: 250 mg 83 y/o male with Chr Afib on Coumadin, CAD, CKD stage 3 admitted w/ cough, sob, tremors, weakness with Cr of 2.7 (baseline Cr ~2) #LUIS on CKD in setting of high dose diuretics and intravascular volume depletion #Hx of HF #Suspected PNA #Anemia #BPH Renal function improving off diuretics pt appears evolemic at the present time can consider resumption of diuretics if Cr improves closer to 2 or if pt develops signs of volume overload continue Abx as per ID, f/u urinary antigens Thank you Ramy Contreras DO
--- NOTE | 2018-09-23 12:37 | PN ---
Progress Note (short form) - Note Progress Note: NEUROLOGY Progress note : Events reviewed and discussed with staff. Renal consult read and appreciated. Carotid duplex noted with 80-99% stenosis R ICA. Pt s/p L CEA. Currently on IV thiamine and IV Zoysn for presumed lung infiltrate noted on chest CT. Reports good appetite, no longer with "tremors." WBC 10.4 -> 5.4, INR 2.36 B12 1230 TSH 1.55, RPR nonreactive. ammonia 54.24 BP 140-150/50-60 without orthostatic changes NEURO: Ox. [facility]. September 23, 2018. TRUMP. 09/22 recall at 3. Slightly masked facies. Gag ok. + glabella No myoclonic jerks. Cogwheeling appreciated with reinforcement R > L. Decreased PAULO's B/L. Decreased vibration both feet. Romberg - Flexed, shuffling Impression: 1. Mild B/L Cerebral Dysfunction (Ammonia somewhat elevated) 2. Severe R ICA stenosis 3. Myoclonic Jerks - resolved 4. Toxic-Metabolic Encephalopathy (TME) - improving 5. Extrapyramidal findings 6. Peripheral Neuropathy (c/w diabetes) Suggest: Continue abx therapy Await Consult with vascular Surgery for R ICA stenosis Add lactulose 30 cc daily to reduce hyperammonemia Continue orthostatic BP's and control of systolic BP in 120-130s Maintain therapeutic INR 2-3 on warfarin Neuro f/u as outpatient rob for possible Rx of Parkinsonian features. Thank you very much, Jose Arcos MD
[2018-09-23] MEDS ORDERED: LACTULOSE 20 GM/30 ML UDC (FOR ORAL USE ONLY) PO ONE (13:30)
--- NOTE | 2018-09-23 13:32 | PN ---
Progress Note, Physician Chief Complaint: cough, wheezing, muscle jerking History of Present Illness: cough persists, no more wheezing no leg swelling no cp no palpitations no cigs - Current Medication List Current Medications: Active Medications Acetaminophen (Tylenol -) 650 mg PO Q4H PRN PRN Reason: PAIN Atorvastatin Calcium (Lipitor -) 20 mg PO HS [facility] Last Admin: 09/22/18 21:34 Dose: 20 mg Benzocaine/Menthol (Cepacol Lozenge -) 1 each MM PRN PRN PRN Reason: SORE THROAT Last Admin: 09/22/18 21:37 Dose: 1 each Carvedilol (Coreg -) 25 mg PO BID [facility] Last Admin: 09/23/18 10:00 Dose: 25 mg Guaifenesin (Robitussin -) 10 ml PO Q4H PRN PRN Reason: COUGH Last Admin: 09/23/18 10:02 Dose: 10 ml Piperacillin Sod/Tazobactam (Sod 2.25 gm/ Dextrose) 50 mls @ 100 mls/hr IVPB Q8H-IV [facility]; Protocol Last Admin: 09/23/18 09:59 Dose: 100 mls/hr Insulin Aspart (Novolog Vial Sliding Scale -) 1 vial SQ [facility]; Protocol Last Admin: 09/23/18 11:43 Dose: 10 units Insulin Detemir (Levemir Vial) 8 units SQ [facility] Last Admin: 09/22/18 21:54 Dose: 8 units Phenol/Menthol (Chloraseptic -) 1 spray MM Q6H PRN PRN Reason: SORE THROAT Polyethylene Glycol (Miralax (For Daily Use) -) 17 gm PO DAILY [facility] Last Admin: 09/23/18 10:01 Dose: 17 gm Tamsulosin HCl (Flomax -) 0.4 mg PO DAILY@0830 [facility] Last Admin: 09/23/18 10:00 Dose: 0.4 mg Thiamine HCl (Vitamin B1 Injection -) 250 mg IVPB TID [facility] Stop: 09/23/18 14:29 Last Admin: 09/23/18 06:52 Dose: 250 mg - Objective Vital Signs: Vital Signs Temperature 97.9 F 09/23/18 10:00 Pulse Rate 72 09/23/18 10:00 Respiratory Rate 20 09/23/18 10:00 Blood Pressure 147/50 L 09/23/18 10:00 O2 Sat by Pulse Oximetry (%) 96 09/23/18 09:00 Constitutional: Yes: No Distress, Calm Eyes: No: Sclera Icterus HENT: No: Nasal Congestion Cardiovascular: Yes: Regular Rate and Rhythm, S1, S2, Other (PMI non diplaced). No: Gallop, Murmur Respiratory: Yes: Regular, Wheezes (faint R lung). No: Accessory Muscle Use, Diminished, Rales, Rhonchi Gastrointestinal: Yes: Normal Bowel Sounds, Soft. No: Tenderness Musculoskeletal: Yes: Other (No kyphosis) Extremities: No: Cold, Cyanosis Edema: Yes (trace pretib) Integumentary: No: Jaundice Neurological: Yes: Alert, Oriented (x3) Psychiatric: No: Agitated Labs: CBC, BMP 09/21/18 06:50 09/23/18 05:30 INR, PTT INR 2.36 (0.83-1.09) H 09/23/18 05:30 Assessment/Plan cxr: no congestion MIBI 07/05 (pers): no STs; small area apical isch and basal inferolateral wall; mild global LV hypo, EF 46% mibi 08/2018: lvef 66, no ischemia ecg: afib, rate ok, no ischemic changes Echo 07/2018: nl lv/rv, lae, mild mr/tr/ar, nl rvsp Echo 10/07: 1. The left ventricular size is normal. 2. Overall left ventricular systolic function is normal with, an EF between 60 - 65 %. 3. LA pressure is uncertain. 4. No regional wall motion abnormalities were noted (basal inferolateral wall may be mildly hypokinetic). 5. The right ventricle is normal in size and function. 6. Left atrium is severely dilated by volume. 7. There is mild aortic regurgitation. 8. The mitral valve is normal in appearance, with no prolapse, flail leaflet, or tethered motion noted. 9. 2 separate MR jets are present: one directed anteriorly, the other central. The anterior jet hugs the antreior LA wall/interatrial septum and is not seen to wrap around the posterior LA wall. The visual appearance is of moderate mitral regurgitation, however the eccentric nature of the anterior jet may lead to underestimation of MR severity on color jet flow analysis. The peak mitral inflow velocity (0.7 m/sec) makes severe mitral regurgitation less likely. There is no systolic flow reversal present in the pulmonary vein. PISA hemisphere could not be measured. Estimated regurgitant volume by volumetric measurements yields and estimate of 35 cc. 10. Mild tricuspid regurgitation present. 11. Unable to estimate RVSP due to inadequate TR jet spectral doppler profile. CT chest: L basilar opacity, trace bilat pleural effusions decr vs prior. mild bibasilar ATX (tele off x 24 hrs) myoclonic jerks: -seen by neuro here. impression is Toxic-Metabolic Encephalopathy (improving) and myoclonic jerks, as well as diabetic Peripheral Neuropathy -no acute CVA -carotid dopplers c/w 90-99% stenosis--dr holguin consulted (pending). PLEASE NOTE THAT PT FOLLOWS WITH DR JOHNSON CLOSELY FOR SERIAL MONITORING OF CAROTIDS, FELT TO BE NON-OBSTRUCTIVE ON LAST OUTPATIENT EVALUATON chronic diastolic HF, functional MR (very bp sensitive during outpatient ANA) - BNP similar to prior values - no congestion on CXR - cont carvedilol, holding ARB for LUIS - was on torsemide 100 mg BID and metolazone until two days [employer] when Cr rising, held diuretics for two days and took torsemide 50 mg x1 day prior to admission. wt and edema improved signif at that time, no more JVD--felt to be dry despite ongoing cough/wheeze (with normal cxr) and 1+ pretib edema (c/w known prior venous insuff baseline). - hold torsemide as patient likely dry, restart when Cr normalizes - would avoid IVF -3/: Appearing near euvolemic. Agree with holding Torsemide and follow Creat. -33: Cough, doubt pulmonary venous congestion, but will get CXR today and BNP to help guide resuming diuresis. Continue to hold Toresemide as Creat continues to decline 2.4 today. -3: office wt 09/16 was 156 (likely dry vs euvolemic then). wt [address] chest no signif pulm congestion. appears euvolemic. daily weights to start. continue holding diuretic for now while observe for signs of chf clinically. bun/creat close to home baseline--? resume lower dose torsemide tomorrow -plan to reassess MR severity as outpatient once pt well diuresed and in sinus rhythm AFib: - remote paroxysmal AF, then persistent AF for past 2-3 mo - Rate controlled on coreg, continue same rx - 3: INR 3.3, holding warfarin -09/22: INR 2.79. Would resume Coumadin 1mg tonight - Considering elective DCCV once acute issues resolve CAD, S/P CABG '05: GAN TO LAD, SVG SEQUENTIAL TO DIAG-->OM; SVG TO RPDA: -cont home statin, (not on ASA, given pt on warfarin) -recent mibi in office 09/10 no ischemia, nl LVEF. -no anginal sx's, no signs acs here. HTN: - h/o labile BPs (worse MR/CHF when bp's uncontrolled, low with orthostatic sx' s at times as well) - ARB held for LUIS recently - was on hydralazine, nitro gtt, clonidine gtt at home as well--not being given here - bp controlled here - cont home carvedilol. will need re-initiation of some of his bp meds later as outpatient, as his bp inevitably will rise (which causes worsening of MR severity) LUIS on CKD: -baseline creat 2-2.2 -bun/creat peaked here at 80s/2.7. likely prerenal given absence of findings suggestive of vol overload/chf -renal fxn improving d/c telemetry
--- NOTE | 2018-09-23 16:40 | PN ---
Progress Note, Physician Chief Complaint: PNA weakness History of Present Illness: Previous notes and events reviewed awake and alert NAD complain of dry cough denies chest pain, SOB - Current Medication List Current Medications: Active Medications Acetaminophen (Tylenol -) 650 mg PO Q4H PRN PRN Reason: PAIN Atorvastatin Calcium (Lipitor -) 20 mg PO HS [facility] Last Admin: 09/22/18 21:34 Dose: 20 mg Benzocaine/Menthol (Cepacol Lozenge -) 1 each MM PRN PRN PRN Reason: SORE THROAT Last Admin: 09/22/18 21:37 Dose: 1 each Carvedilol (Coreg -) 25 mg PO BID [facility] Last Admin: 09/23/18 10:00 Dose: 25 mg Guaifenesin (Robitussin -) 10 ml PO Q4H PRN PRN Reason: COUGH Last Admin: 09/23/18 10:02 Dose: 10 ml Piperacillin Sod/Tazobactam (Sod 2.25 gm/ Dextrose) 50 mls @ 100 mls/hr IVPB Q8H-IV [facility]; Protocol Last Admin: 09/23/18 09:59 Dose: 100 mls/hr Insulin Aspart (Novolog Vial Sliding Scale -) 1 vial SQ [facility]; Protocol Last Admin: 09/23/18 11:43 Dose: 10 units Insulin Detemir (Levemir Vial) 8 units SQ [facility] Last Admin: 09/22/18 21:54 Dose: 8 units Phenol/Menthol (Chloraseptic -) 1 spray MM Q6H PRN PRN Reason: SORE THROAT Polyethylene Glycol (Miralax (For Daily Use) -) 17 gm PO DAILY [facility] Last Admin: 09/23/18 10:01 Dose: 17 gm Tamsulosin HCl (Flomax -) 0.4 mg PO DAILY@0830 [facility] Last Admin: 09/23/18 10:00 Dose: 0.4 mg Warfarin Sodium (Coumadin -) 2 mg PO DAILY@1800 [facility] - Objective Vital Signs: Vital Signs Temperature 97.4 F L 09/23/18 14:00 Pulse Rate 64 09/23/18 14:00 Respiratory Rate 20 09/23/18 14:00 Blood Pressure 161/69 09/23/18 14:00 O2 Sat by Pulse Oximetry (%) 96 09/23/18 09:00 Constitutional: Yes: No Distress, Calm Eyes: Yes: Conjunctiva Clear HENT: Yes: Atraumatic Cardiovascular: Yes: Regular Rate and Rhythm Respiratory: Yes: Regular, Wheezes Gastrointestinal: Yes: Normal Bowel Sounds, Soft, Other (non tender) Musculoskeletal: Yes: WNL Extremities: Yes: WNL Edema: No Integumentary: Yes: Erythema (B/L lower extremity) Neurological: Yes: Alert, Oriented Psychiatric: Yes: Alert, Oriented Labs: CBC, BMP 09/21/18 06:50 09/23/18 05:30 INR, PTT INR 2.36 (0.83-1.09) H 09/23/18 05:30 Microbiology 09/22/18 19:00 Urine For Antigen Detection Legionella Antigen - Final 09/22/18 19:00 Urine For Antigen Detection Streptococcus pneumoniae Antigen (M - Final Problem List - Problems (1) CHF (congestive heart failure) Assessment/Plan: -cardiology on board -BNP 3644--will continue to monitor -holding torsemide due to renal function -1L fluid restriction -continue with coreg Code(s): I50.9 - HEART FAILURE, UNSPECIFIED (2) Hypokalemia Assessment/Plan: -resolved -current level 3.7 -will continue to monitor trend Code(s): E87.6 - HYPOKALEMIA (3) Jerking movements of extremities Assessment/Plan: -neurology on board -ammonia 54.20--start on lactulose 30cc daily, will monitor ammonia level Code(s): R25.2 - CRAMP AND SPASM (4) PNA (pneumonia) Assessment/Plan: -ID on board -continue IV zosyn -wbc 5.4, will continue to monitor -afebrile Code(s): J18.9 - PNEUMONIA, UNSPECIFIED ORGANISM Qualifiers: Pneumonia type: due to unspecified organism Laterality: left Lung location: lower lobe of lung Qualified Code(s): J18.1 - Lobar pneumonia, unspecified organism (5) Afib Assessment/Plan: -continue with coumadin -current INR 2.36 -daily INR, level 2-3 -cardiology on board Code(s): I48.91 - UNSPECIFIED ATRIAL FIBRILLATION (6) Acute kidney failure Assessment/Plan: -renal on board -BUN/Cr 84/2.4 -renal on board -will continue to trend renal function Code(s): N17.9 - ACUTE KIDNEY FAILURE, UNSPECIFIED Assessment/Plan see problem list dvt ppx
[2018-09-23] MEDS ORDERED: PT OWN MED DRAWER 7, Y5N ONE (17:26)
[2018-09-23] MEDS: WARFARIN NA 2 MG TABLET (UD) PO SCH (17:27)
[2018-09-23] MEDS: ATORVASTATIN CA 20 MG TABLET (FP) PO SCH (23:00)
[2018-09-23] MEDS: INSULIN (LEVEMIR) 100 UNITS/ML UNITS SQ SCH (23:01)
[2018-09-24] MEDS ORDERED: DEXTROSE 5%-WATER - 50 ML IVPB ONE ×3 (00:54→16:58)
[2018-09-24] MEDS ORDERED: PIPERACILLIN/TAZOBACTAM 2.25 GM VIAL IVPB ONE ×3 (00:54→16:58)
[2018-09-24] MEDS: PIPERACILLIN/TAZOB 2.25 GM 2.25 GM in DEXTROSE 5%-WATER - 50 ML IVPB SCH ×3 (02:27→17:14)
[2018-09-24] MEDS: INSULIN SLIDING SCALE (NOVOLOG) 1 VIAL SQ SCH ×4 (07:16→21:34)
[2018-09-24 07:30] LABS: INR 2.21 (0.83-1.09); PROTHROMBIN TIME (PATIENT) 26.3 SEC (9.7-13.0)
[2018-09-24 07:38] LABS: BASO % 0.7 % (0-2.0); EOS % 3.6 % (0-4.5); HEMATOCRIT 34.8 % (35.4-49); HEMOGLOBIN 12.1 GM/dL (11.7-16.9); LYMPH % 21.6 % (8-40); MCH 32.6 pg (25.7-33.7); MCHC 34.9 g/dl (32.0-35.9); MEAN CELL VOLUME 93.4 fl (80-96); MEAN PLT VOLUME 9.4 fl (7.5-11.1); MONO % 10.7 % (3.8-10.2); NEUT % 63.4 % (42.8-82.8); PLATELET COUNT 140 K/MM3 (134-434); RBC 3.72 M/mm3 (4.00-5.60); RDW 14.5 % (11.9-15.9); WHITE BLOOD COUNT 6.5 K/mm3 (4.0-10.0)
[2018-09-24 08:17] LABS: ALK PHOS 126 U/L (45-117); ANION GAP 6 MMOL/L (8-16); BILIRUBIN,TOTAL 1.2 mg/dL (0.2-1); BLOOD UREA NITROGEN 54 mg/dL (7-18); CALCIUM 8.4 mg/dL (8.5-10.1); CHLORIDE 96 mmol/L (98-107); CO2 35 mmol/L (21-32); CREATININE 2.1 mg/dL (0.55-1.3); GLUCOSE,RANDOM 85 mg/dL (74-106); SGOT/AST 21 U/L (15-37); SGPT/ALT 16 U/L (13-61); SODIUM 137 mmol/L (136-145); TOT PROT 6.6 g/dl (6.4-8.2)
[2018-09-24] MEDS: TAMSULOSIN HCL 0.4 MG CAP PO SCH (08:25)
[2018-09-24] MEDS: guaiFENesin 200 MG/10 ML 10 ML UNIT-DOSE CUPS PO PRN (08:25)
--- NOTE | 2018-09-24 09:14 | PN ---
Progress Note, Physician - Current Medication List Current Medications: Active Medications Acetaminophen (Tylenol -) 650 mg PO Q4H PRN PRN Reason: PAIN Atorvastatin Calcium (Lipitor -) 20 mg PO HS [facility] Last Admin: 09/23/18 23:00 Dose: 20 mg Benzocaine/Menthol (Cepacol Lozenge -) 1 each MM PRN PRN PRN Reason: SORE THROAT Last Admin: 09/22/18 21:37 Dose: 1 each Carvedilol (Coreg -) 25 mg PO BID [facility] Last Admin: 09/23/18 23:00 Dose: 25 mg Guaifenesin (Robitussin -) 10 ml PO Q4H PRN PRN Reason: COUGH Last Admin: 09/24/18 08:25 Dose: 10 ml Piperacillin Sod/Tazobactam (Sod 2.25 gm/ Dextrose) 50 mls @ 100 mls/hr IVPB Q8H-IV [facility]; Protocol Last Admin: 09/24/18 02:27 Dose: 100 mls/hr Insulin Aspart (Novolog Vial Sliding Scale -) 1 vial SQ [facility]; Protocol Last Admin: 09/24/18 07:16 Dose: Not Given Insulin Detemir (Levemir Vial) 8 units SQ [facility] Last Admin: 09/23/18 23:01 Dose: 8 units Phenol/Menthol (Chloraseptic -) 1 spray MM Q6H PRN PRN Reason: SORE THROAT Polyethylene Glycol (Miralax (For Daily Use) -) 17 gm PO DAILY [facility] Last Admin: 09/23/18 10:01 Dose: 17 gm Tamsulosin HCl (Flomax -) 0.4 mg PO DAILY@0830 [facility] Last Admin: 09/24/18 08:25 Dose: 0.4 mg Warfarin Sodium (Coumadin -) 2 mg PO DAILY@1800 [facility] Last Admin: 09/23/18 17:27 Dose: 2 mg - Objective Vital Signs: Vital Signs Temperature 97.5 F L 09/24/18 06:00 Pulse Rate 64 09/24/18 06:00 Respiratory Rate 18 09/24/18 06:00 Blood Pressure 145/56 L 09/24/18 06:00 O2 Sat by Pulse Oximetry (%) 97 09/23/18 21:00 Labs: CBC, BMP 09/24/18 06:30 09/24/18 06:30 INR, PTT INR 2.21 (0.83-1.09) H 09/24/18 06:30 Problem List - Problems (1) CHF (congestive heart failure) Assessment/Plan: -cardiology on board -BNP 3644--will continue to monitor -holding torsemide due to renal function -1L fluid restriction -continue with coreg Code(s): I50.9 - HEART FAILURE, UNSPECIFIED (2) Jerking movements of extremities Assessment/Plan: -neurology on board -ammonia 54.20--start on lactulose 30cc daily, will monitor ammonia level Code(s): R25.2 - CRAMP AND SPASM (3) PNA (pneumonia) Assessment/Plan: -questionable id and pulm consults -ID on board -continue IV zosyn -wbc 5.4, will continue to monitor -afebrile Code(s): J18.9 - PNEUMONIA, UNSPECIFIED ORGANISM Qualifiers: Pneumonia type: due to unspecified organism Laterality: left Lung location: lower lobe of lung Qualified Code(s): J18.1 - Lobar pneumonia, unspecified organism (4) Weakness Code(s): R53.1 - WEAKNESS (5) Acute kidney failure Assessment/Plan: -renal on board -BUN/Cr 84/2.4 -renal on board -will continue to trend renal function Code(s): N17.9 - ACUTE KIDNEY FAILURE, UNSPECIFIED (6) Afib Assessment/Plan: continue with coumadin -current INR 2.2 -daily INR, level 2-3 -cardiology on board Code(s): I48.91 - UNSPECIFIED ATRIAL FIBRILLATION
[2018-09-24] MEDS: CARVEDILOL 25 MG TABLET (FP) PO SCH ×2 (10:12→21:16)
[2018-09-24] MEDS: POLYETHYLENE GLYCOL 3350 119 GM BTL PO SCH (10:14)
[2018-09-24] MEDS ORDERED: INSULIN (NOVOLOG) ASPART 100 UNITS/ML 10ML VIAL ONE (11:51)
--- NOTE | 2018-09-24 15:37 | PN ---
Progress Note (short form) - Note Progress Note: s: feels better today, stable cough. no sob, palps, chest pain, edema Current Medications Acetaminophen (Tylenol -) 650 mg PO Q4H PRN PRN Reason: PAIN Atorvastatin Calcium (Lipitor -) 20 mg PO HS [facility] Last Admin: 09/23/18 23:00 Dose: 20 mg Benzocaine/Menthol (Cepacol Lozenge -) 1 each MM PRN PRN PRN Reason: SORE THROAT Last Admin: 09/22/18 21:37 Dose: 1 each Carvedilol (Coreg -) 25 mg PO BID [facility] Last Admin: 09/24/18 10:12 Dose: 25 mg Guaifenesin (Robitussin -) 10 ml PO Q4H PRN PRN Reason: COUGH Last Admin: 09/24/18 08:25 Dose: 10 ml Piperacillin Sod/Tazobactam (Sod 2.25 gm/ Dextrose) 50 mls @ 100 mls/hr IVPB Q8H-IV [facility]; Protocol Last Admin: 09/24/18 10:27 Dose: 100 mls/hr Insulin Aspart (Novolog Vial Sliding Scale -) 1 vial SQ [facility]; Protocol Last Admin: 09/24/18 12:01 Dose: 4 units Insulin Detemir (Levemir Vial) 8 units SQ [facility] Last Admin: 09/23/18 23:01 Dose: 8 units Phenol/Menthol (Chloraseptic -) 1 spray MM Q6H PRN PRN Reason: SORE THROAT Polyethylene Glycol (Miralax (For Daily Use) -) 17 gm PO DAILY [facility] Last Admin: 09/24/18 10:14 Dose: 17 gm Tamsulosin HCl (Flomax -) 0.4 mg PO DAILY@0830 [facility] Last Admin: 09/24/18 08:25 Dose: 0.4 mg Warfarin Sodium (Coumadin -) 2 mg PO DAILY@1800 [facility] Last Admin: 09/23/18 17:27 Dose: 2 mg - Objective Vital Signs Period Temp Pulse Resp BP Sys/Gregory Pulse Ox Last 24 Hr 97.1 F-98.0 F 64-76 18-20 131-160/56-82 97-100 Constitutional: Yes: No Distress, Calm Eyes: No: Sclera Icterus HENT: No: Nasal Congestion Cardiovascular: Yes: Regular Rate and Rhythm, S1, S2, Other (PMI non diplaced). No: Gallop, Murmur Respiratory: Yes: Regular, Wheezes (faint R lung). No: Accessory Muscle Use, Diminished, Rales, Rhonchi Gastrointestinal: Yes: Normal Bowel Sounds, Soft. No: Tenderness Musculoskeletal: Yes: Other (No kyphosis) Extremities: No: Cold, Cyanosis Edema: Yes (trace pretib) Integumentary: No: Jaundice Neurological: Yes: Alert, Oriented (x3) Psychiatric: No: Agitated Assessment/Plan cxr: no congestion MIBI 07/05 (pers): no STs; small area apical isch and basal inferolateral wall; mild global LV hypo, EF 46% mibi 08/2018: lvef 66, no ischemia ecg: afib, rate ok, no ischemic changes Echo 07/2018: nl lv/rv, lae, mild mr/tr/ar, nl rvsp Echo 10/07: 1. The left ventricular size is normal. 2. Overall left ventricular systolic function is normal with, an EF between 60 - 65 %. 3. LA pressure is uncertain. 4. No regional wall motion abnormalities were noted (basal inferolateral wall may be mildly hypokinetic). 5. The right ventricle is normal in size and function. 6. Left atrium is severely dilated by volume. 7. There is mild aortic regurgitation. 8. The mitral valve is normal in appearance, with no prolapse, flail leaflet, or tethered motion noted. 9. 2 separate MR jets are present: one directed anteriorly, the other central. The anterior jet hugs the antreior LA wall/interatrial septum and is not seen to wrap around the posterior LA wall. The visual appearance is of moderate mitral regurgitation, however the eccentric nature of the anterior jet may lead to underestimation of MR severity on color jet flow analysis. The peak mitral inflow velocity (0.7 m/sec) makes severe mitral regurgitation less likely. There is no systolic flow reversal present in the pulmonary vein. PISA hemisphere could not be measured. Estimated regurgitant volume by volumetric measurements yields and estimate of 35 cc. 10. Mild tricuspid regurgitation present. 11. Unable to estimate RVSP due to inadequate TR jet spectral doppler profile. CT chest: L basilar opacity, trace bilat pleural effusions decr vs prior. mild bibasilar ATX myoclonic jerks: -seen by neuro here. impression is Toxic-Metabolic Encephalopathy (improving) and myoclonic jerks, as well as diabetic Peripheral Neuropathy -no acute CVA -carotid dopplers c/w 90-99% stenosis--dr holguin consulted (pending). - per Dr. Sanchez: PLEASE NOTE THAT PT FOLLOWS WITH DR JOHNSON CLOSELY FOR SERIAL MONITORING OF CAROTIDS, FELT TO BE NON-OBSTRUCTIVE ON LAST OUTPATIENT EVALUATON chronic diastolic HF, functional MR (very bp sensitive during outpatient ANA) - BNP similar to prior values - no congestion on CXR - cont carvedilol, holding ARB for LUIS - was on torsemide 100 mg BID and metolazone until two days [employer] when Cr rising, held diuretics for two days and took torsemide 50 mg x1 day prior to admission. wt and edema improved signif at that time, no more JVD--felt to be dry despite ongoing cough/wheeze (with normal cxr) and 1+ pretib edema (c/w known prior venous insuff baseline). - hold torsemide as patient likely dry, restart when Cr normalizes - would avoid IVF -3/: Appearing near euvolemic. Agree with holding Torsemide and follow Creat. -33: Cough, doubt pulmonary venous congestion, but will get CXR today and BNP to help guide resuming diuresis. Continue to hold Toresemide as Creat continues to decline 2.4 today. -09/23: office wt 09/16 was 156 (likely dry vs euvolemic then). wt [address] chest no signif pulm congestion. BUN/Cr at baseline, euvolemic -09/24 appears euvolemic, Cr at baseline. Resume torsemide at lower dose 50 mg BID -plan to reassess MR severity as outpatient once pt well diuresed and in sinus rhythm AFib: - remote paroxysmal AF, then persistent AF for past 2-3 mo - Rate controlled on coreg, continue same rx - 3/2: INR 3.3, holding warfarin -33: INR 2.79. Would resume Coumadin 1mg tonight - restarted coumadin 2 mg daily - at home takes 2 mg 5 days a week and 3 mg two days a week, monitor INR - Considering elective DCCV once acute issues resolve CAD, S/P CABG '05: GAN TO LAD, SVG SEQUENTIAL TO DIAG-->OM; SVG TO RPDA: -cont home statin, (not on ASA, given pt on warfarin) -recent mibi in office 09/10 no ischemia, nl LVEF. -no anginal sx's, no signs acs here. HTN: - h/o labile BPs (worse MR/CHF when bp's uncontrolled, low with orthostatic sx' s at times as well) - ARB held for LUIS recently - was on hydralazine, nitro gtt, clonidine gtt at home as well--not being given here - bp controlled here - cont home carvedilol. will need re-initiation of some of his bp meds later as outpatient, as his bp inevitably will rise (which causes worsening of MR severity) LUIS on CKD: -baseline creat 2-2.2 -bun/creat peaked here at 80s/2.7. likely prerenal given absence of findings suggestive of vol overload/chf -renal fxn improving
[2018-09-24] MEDS: WARFARIN NA 2 MG TABLET (UD) PO SCH (17:14)
[2018-09-24] MEDS: ATORVASTATIN CA 20 MG TABLET (FP) PO SCH (21:16)
[2018-09-24] MEDS: INSULIN (LEVEMIR) 100 UNITS/ML UNITS SQ SCH (21:34)
[2018-09-25] MEDS ORDERED: DEXTROSE 5%-WATER - 50 ML IVPB ONE ×3 (01:19→17:20)
[2018-09-25] MEDS ORDERED: PIPERACILLIN/TAZOBACTAM 2.25 GM VIAL IVPB ONE ×3 (01:19→17:20)
[2018-09-25] MEDS: PIPERACILLIN/TAZOB 2.25 GM 2.25 GM in DEXTROSE 5%-WATER - 50 ML IVPB SCH ×3 (01:27→17:22)
[2018-09-25] MEDS: guaiFENesin 200 MG/10 ML 10 ML UNIT-DOSE CUPS PO PRN ×3 (01:44→21:40)
[2018-09-25] MEDS ORDERED: TORSEMIDE 10 MG TABLET PO SCH (06:00)
[2018-09-25] MEDS: INSULIN SLIDING SCALE (NOVOLOG) 1 VIAL SQ SCH ×4 (06:03→21:40)
[2018-09-25] MEDS: TORSEMIDE 40 MG, TORSEMIDE 10 MG PO SCH ×2 (06:06→14:14)
[2018-09-25 08:06] LABS: SERUM IRON SATURATION 26 % (15-55); TOTAL IRON BINDING CAPACITY 200 ug/dL (250-450); UIBC 148 ug/dL (111-343)
[2018-09-25 08:20] LABS: ALBUMIN 2.8 g/dl (3.4-5.0); ALK PHOS 115 U/L (45-117); ANION GAP 5 MMOL/L (8-16); BILIRUBIN,TOTAL 1.1 mg/dL (0.2-1); BLOOD UREA NITROGEN 49 mg/dL (7-18); CALCIUM 8.6 mg/dL (8.5-10.1); CHLORIDE 99 mmol/L (98-107); CO2 32 mmol/L (21-32); GLUCOSE,RANDOM 180 mg/dL (74-106); POTASSIUM 5.1 mmol/L (3.5-5.1); SGOT/AST 23 U/L (15-37); SGPT/ALT 18 U/L (13-61); SODIUM 136 mmol/L (136-145); TOT PROT 5.8 g/dl (6.4-8.2)
[2018-09-25 08:28] LABS: INR 2.36 (0.83-1.09); PROTHROMBIN TIME (PATIENT) 28.1 SEC (9.7-13.0)
--- NOTE | 2018-09-25 08:30 | PN ---
Progress Note, Physician - Current Medication List Current Medications: Active Medications Acetaminophen (Tylenol -) 650 mg PO Q4H PRN PRN Reason: PAIN Atorvastatin Calcium (Lipitor -) 20 mg PO HS [facility] Last Admin: 09/24/18 21:16 Dose: 20 mg Benzocaine/Menthol (Cepacol Lozenge -) 1 each MM PRN PRN PRN Reason: SORE THROAT Last Admin: 09/22/18 21:37 Dose: 1 each Carvedilol (Coreg -) 25 mg PO BID [facility] Last Admin: 09/24/18 21:16 Dose: 25 mg Guaifenesin (Robitussin -) 10 ml PO Q4H PRN PRN Reason: COUGH Last Admin: 09/25/18 01:44 Dose: 10 ml Piperacillin Sod/Tazobactam (Sod 2.25 gm/ Dextrose) 50 mls @ 100 mls/hr IVPB Q8H-IV [facility]; Protocol Last Admin: 09/25/18 01:27 Dose: 100 mls/hr Insulin Aspart (Novolog Vial Sliding Scale -) 1 vial SQ [facility]; Protocol Last Admin: 09/25/18 06:03 Dose: Not Given Insulin Detemir (Levemir Vial) 8 units SQ [facility] Last Admin: 09/24/18 21:34 Dose: 8 units Phenol/Menthol (Chloraseptic -) 1 spray MM Q6H PRN PRN Reason: SORE THROAT Polyethylene Glycol (Miralax (For Daily Use) -) 17 gm PO DAILY [facility] Last Admin: 09/24/18 10:14 Dose: 17 gm Tamsulosin HCl (Flomax -) 0.4 mg PO DAILY@0830 [facility] Last Admin: 09/24/18 08:25 Dose: 0.4 mg Torsemide 40 mg/ Torsemide 10 (mg) 50 mg PO BIDLASIX [facility] Last Admin: 09/25/18 06:06 Dose: 50 mg Warfarin Sodium (Coumadin -) 2 mg PO DAILY@1800 [facility] Last Admin: 09/24/18 17:14 Dose: 2 mg - Objective Vital Signs: Vital Signs Temperature 97.6 F 09/25/18 06:00 Pulse Rate 67 09/25/18 06:00 Respiratory Rate 18 09/25/18 06:00 Blood Pressure 153/59 L 09/25/18 06:00 O2 Sat by Pulse Oximetry (%) 98 09/24/18 21:00 Cardiovascular: Yes: S1, S2 Respiratory: Yes: Regular, CTA Bilaterally Gastrointestinal: Yes: Normal Bowel Sounds, Soft. No: Tenderness Edema: LLE: Trace, RLE: Trace Labs: CBC, BMP 09/24/18 06:30 09/25/18 07:00 INR, PTT INR 2.36 (0.83-1.09) H 09/25/18 07:00 Problem List - Problems (1) CHF (congestive heart failure) Assessment/Plan: -cardiology on board -on torsemide -1L fluid restriction -continue with coreg Code(s): I50.9 - HEART FAILURE, UNSPECIFIED (2) Jerking movements of extremities Assessment/Plan: -neurology on board -ammonia 54.20--start on lactulose 30cc daily, will monitor ammonia level Code(s): R25.2 - CRAMP AND SPASM (3) PNA (pneumonia) Assessment/Plan: -ID on board -continue IV zosyn -afebrile Code(s): J18.9 - PNEUMONIA, UNSPECIFIED ORGANISM Qualifiers: Pneumonia type: due to unspecified organism Laterality: left Lung location: lower lobe of lung Qualified Code(s): J18.1 - Lobar pneumonia, unspecified organism (4) Weakness Assessment/Plan: PT may need snf Code(s): R53.1 - WEAKNESS (5) Acute kidney failure Assessment/Plan: -renal on board -BUN/Cr 84/2.4 -renal on board -will continue to trend renal function Code(s): N17.9 - ACUTE KIDNEY FAILURE, UNSPECIFIED (6) Afib Assessment/Plan: continue with coumadin -current INR 2.2 -daily INR, level 2-3 -cardiology on board Code(s): I48.91 - UNSPECIFIED ATRIAL FIBRILLATION
[2018-09-25] MEDS: TAMSULOSIN HCL 0.4 MG CAP PO SCH (09:15)
[2018-09-25] MEDS: POLYETHYLENE GLYCOL 3350 119 GM BTL PO SCH (09:15)
[2018-09-25] MEDS: CARVEDILOL 25 MG TABLET (FP) PO SCH ×2 (09:15→21:40)
--- NOTE | 2018-09-25 11:47 | PN ---
Progress Note (short form) - Note Progress Note: Renal follow up for LUIS on CKD Pt seen and examined at the bedside has minimal cough, no sob, cp, abd pain was not able to sleep last night because his roomate was keeping him up making urine Vital Signs Temperature 97.6 F 09/25/18 06:00 Pulse Rate 67 09/25/18 06:00 Respiratory Rate 18 09/25/18 06:00 Blood Pressure 153/59 L 09/25/18 06:00 O2 Sat by Pulse Oximetry (%) 98 09/24/18 21:00 Intake & Output 09/22/18 09/23/18 09/24/18 09/25/18 23:59 23:59 23:59 23:59 Intake Total 460 1100 915 130 Output Total 300 300 Balance 160 800 915 130 Weight 67.676 kg 68.266 kg NAD + edema in LE CBC, BMP 09/24/18 06:30 09/25/18 07:00 Current Medications Acetaminophen (Tylenol -) 650 mg PO Q4H PRN PRN Reason: PAIN Atorvastatin Calcium (Lipitor -) 20 mg PO HS [facility] Last Admin: 09/24/18 21:16 Dose: 20 mg Benzocaine/Menthol (Cepacol Lozenge -) 1 each MM PRN PRN PRN Reason: SORE THROAT Last Admin: 09/22/18 21:37 Dose: 1 each Carvedilol (Coreg -) 25 mg PO BID [facility] Last Admin: 09/25/18 09:15 Dose: 25 mg Guaifenesin (Robitussin -) 10 ml PO Q4H PRN PRN Reason: COUGH Last Admin: 09/25/18 01:44 Dose: 10 ml Piperacillin Sod/Tazobactam (Sod 2.25 gm/ Dextrose) 50 mls @ 100 mls/hr IVPB Q8H-IV [facility]; Protocol Last Admin: 09/25/18 09:14 Dose: 100 mls/hr Insulin Aspart (Novolog Vial Sliding Scale -) 1 vial SQ [facility]; Protocol Last Admin: 09/25/18 06:03 Dose: Not Given Insulin Detemir (Levemir Vial) 8 units [address]Q [facility] Last Admin: 09/24/18 21:34 Dose: 8 units Phenol/Menthol (Chloraseptic -) 1 spray MM Q6H PRN PRN Reason: SORE THROAT Polyethylene Glycol (Miralax (For Daily Use) -) 17 gm PO DAILY [facility] Last Admin: 09/25/18 09:15 Dose: 17 gm Tamsulosin HCl (Flomax -) 0.4 mg PO DAILY@0830 [facility] Last Admin: 09/25/18 09:15 Dose: 0.4 mg Torsemide 40 mg/ Torsemide 10 (mg) 50 mg PO BIDLASIX [facility] Last Admin: 09/25/18 06:06 Dose: 50 mg Warfarin Sodium (Coumadin -) 2 mg PO DAILY@1800 [facility] Last Admin: 09/24/18 17:14 Dose: 2 mg 83 y/o male with Chr Afib on Coumadin, CAD, CKD stage 3 admitted w/ cough, sob, tremors, weakness with Cr of 2.7 (baseline Cr ~2) #LUIS on CKD in setting of high dose diuretics and intravascular volume depletion #Hx of HF #Suspected PNA #Anemia #BPH Renal function now at baseline pt has some edema now, restarted on oral torsemide BID Trend renal function and electrolytes Thank you Ramy Contreras DO
--- NOTE | 2018-09-25 13:16 | CONSULT ---
Consult Consult Specialty:: PM&R Dr Ashraf for Dr Hinds - History of Present Illness Chief Complaint: wet cough, improving History of Present Illness: This is an 83 year old man with a medical history of CAD s/p CABG, CHF, A fib, HTN, HLD, liver cancer s/p resection on chemo, renal insufficiency, DM, who presented to the ED 09/20/18 with cough and functional decline. He was admitted for possible PNA for which he was seen by ID/ Pulm; CT chest 09/21/18 shows L basilar infiltrate. CT head showed generalized volume loss with moderate ventricular dilatation, chronic microvascular ischemic changes, and focal encephalomalacia of the R occipital lobe. Neurology was consulted, who felt he had mild B cerebral dysfunction with possible toxic- metabolic encephalopathy and peripheral neuropathy. Cardiology was consulted for chronic systolic heart failure and A fib. Renal was consulted for LUIS on CKD.09/20/18 Carotid US shows extensive atherosclerotic disease with R ICA 80-99% stenosis, and 60-79% stenosis at the L carotid bifurcation. He was not yet seen by PT. Physiatry is being consulted for further recommendations. - Past Medical History Cardio/Vascular: Yes: AFIB, CAD, CHF, HTN, Hyperlipdemia Gastrointestinal: Yes: Cancer (primary liver) Hepatobiliary: Yes: Other (primary liver cancer s/p resection and now recurr in lymph nodes on chemo (nexavar)) Renal/: Yes: Renal Failure Endocrine: Yes: Diabetes Mellitus (insulin dependent) - Past Surgical History Past Surgical History: Yes: CABG (partial liver resection) - Alcohol/Substance Use Hx Alcohol Use: No - Smoking History Smoking history: Never smoked Have you smoked in the past 12 months: No - Social History Usual Living Arrangement: With Spouse (in elevator apartment) ADL: Independent History of Recent Travel: No Home Medications - Allergies Allergies/Adverse Reactions: Allergies Allergy/AdvReac Type Severity Reaction Status Date / Time No Known Drug Allergies Allergy Verified 09/20/18 05:49 - Home Medications Home Medications: Ambulatory Orders Lantus (10mL VIAL) - 8 units SQ HS 11/03/16 Carvedilol [Coreg -] 25 mg PO BID #60 tablet 08/24/18 Clonidine Patch [Catapres Tts Patch -] 0.2 mg TD Q7D@1000 #4 patch.tdwk Cephalexin Monohydrate [Keflex -] 500 mg PO BID #4 capsule 09/11/18 Furosemide [Lasix -] 80 mg PO BID@0600,1400 #120 tablet 09/11/18 Insulin Aspart [Novolog] 0 unit SQ TID #1 ea 09/11/18 Polyethylene Glycol 3350 [Miralax 119 gm Btl -] 17 gm PO DAILY #1 bottle Simvastatin [Zocor -] 20 mg PO HS #30 tab 09/11/18 Tamsulosin HCl 0.4 mg PO DAILY #30 tab 09/11/18 Warfarin Na [Coumadin -] 2 mg PO SUMOTUTHFRSA #30 tab 09/11/18 Warfarin Na [Coumadin -] 3 mg PO We@1800 #10 tablet 09/11/18 Tamsulosin HCl [Flomax -] 0.4 mg PO DAILY@0830 #30 cap.er.24h MDD 1 09/12/18 Torsemide 50 mg PO DAILY 09/21/18 Review of Systems Findings/Remarks: Denies fevers, chills, changes in vision/ hearing/ mood, CP, SOB, abdominal pain , nausea, vomiting, constipation, diarrhea, dysuria, muscle/ joint pain, numbness/ paresthesias. Notes wet cough, improving. Physical Exam Vital Signs: Vital Signs Temperature 97.6 F 09/25/18 06:00 Pulse Rate 67 09/25/18 06:00 Respiratory Rate 18 09/25/18 06:00 Blood Pressure 153/59 L 09/25/18 06:00 O2 Sat by Pulse Oximetry (%) 98 09/24/18 21:00 Musculoskeletal: Yes: Other (General: calm elderly M sitting in chair NAD, AAO x3 N/M: B shoulder flexion to 140 degrees, 5-/5 BUE/ BLE; Pinprick Intact BUE and decreased below mid- shins bilaterally Extremities: 1+ BLE pitting edema, no B calf tenderness, chronic BLE skin changes) Labs: CBC, BMP 09/24/18 06:30 09/25/18 07:00 Imaging - Results Chest X-ray: Report Reviewed Cat Scan: Report Reviewed (as per HPI) Assessment/Plan Impression: 1) Deficits mobility/ ADLs 2) Gait abnormality 3) Deconditioning 4) PNA 5) Possible toxic- metabolic encephalopathy, improving 6) LUIS on CHD 7) CAD s/p CABG, CHF, A fib, HTN, HLD 8) hx liver cancer s/p resection on chemo 9) DM with likely diabetic neuropathy 10) Mildly overweight 11) Up to date flu shot/ pneumovax Recommendations: 1) PT for stretching strengthening ROM and functional mobility 2) Falls, safety precautions 3) Cardiac, diabetic precautions 4) DVT ppx: on Coumadin 5) Denies constipation on current bowel regimen 6) Monitor BMP given renal function 7) Nutrition consult for overweight 8) Continue plan per primary team 9) Discharge planning: once medically stable, he will likely be able to return home with home services Thank you for this referral.
--- NOTE | 2018-09-25 13:17 | PN ---
Progress Note (short form) - Note Progress Note: NEUROLOGY Progress note : Events reviewed and discussed with staff. Cardiology, renal, and PM&R consult read and appreciated. Carotid duplex noted with 80-99% stenosis R ICA. Awaiting vascular consult. S/P IV thiamine. On IV Zoysn for presumed lung infiltrate noted on chest CT. Reports good appetite, however trouble sleeping attributed to nocturia. INR 2.36 ammonia 54.24 albumin 3.0 -> 2.8 BP 140-150/50-60 without orthostatic changes NEURO: Ox. [facility]. September 25, 2018. Sunday. TRUMP. Slightly masked facies. Gag ok. + glabella Intermittent myoclonus vs. Mild asterixis. Cogwheeling appreciated with reinforcement R > L. Decreased PAULO's B/L. Decreased vibration both feet. Romberg - Flexed, shuffling Impression: 1. Mild B/L Cerebral Dysfunction 2. Return of Myoclonus vs. Asterixis (? hepatic encephalopathy) 3. Severe R ICA stenosis 4. Toxic-Metabolic Encephalopathy (TME) - improving 5. Extrapyramidal findings 6. Peripheral Neuropathy (c/w diabetes) Suggest: Continue abx therapy Await Consult with vascular Surgery for R ICA stenosis. Would recall. Repeat ammonia level, resume lactulose 30cc/day Control of systolic BP in 120-130s Maintain therapeutic INR 2-3 on warfarin Neuro f/u as outpatient rob for possible Rx of Parkinsonian features. Thank you very much, Jose Arcos MD
--- NOTE | 2018-09-25 15:38 | PN ---
Progress Note (short form) - Note Progress Note: s: no sob, palps, chest pain, dizzy Current Medications Generic Name Dose Route Start Last Admin Trade Name Freq PRN Reason Stop Dose Admin Acetaminophen 650 mg 09/20/18 10:01 Tylenol - PO Q4H PRN PAIN Atorvastatin Calcium 20 mg 09/21/18 22:00 09/24/18 21:16 Lipitor - PO 20 mg HS [facility] Administration Benzocaine/Menthol 1 each 09/22/18 15:58 09/22/18 21:37 Cepacol Lozenge - MM 1 each PRN PRN Administration SORE THROAT Carvedilol 25 mg 09/20/18 22:00 09/25/18 09:15 Coreg - PO 25 mg BID [facility] Administration Guaifenesin 10 ml 09/22/18 15:58 09/25/18 01:44 Robitussin - PO 10 ml Q4H PRN Administration COUGH Piperacillin Sod/Tazobactam 50 mls @ 100 mls/hr 09/22/18 15:15 09/25/18 09:14 Sod 2.25 gm/ Dextrose IVPB 100 mls/hr Q8H-IV [facility] Administration Protocol Insulin Aspart 1 vial 09/21/18 16:30 09/25/18 12:09 Novolog Vial Sliding Scale - SQ 10 units ACHS [facility] Administration Protocol Insulin Detemir 8 units 09/21/18 22:00 09/24/18 21:34 Levemir Vial SQ 8 units HS [facility] Administration Phenol/Menthol 1 spray 09/22/18 15:58 Chloraseptic - MM Q6H PRN SORE THROAT Polyethylene Glycol 17 gm 09/21/18 15:15 09/25/18 09:15 Miralax (For Daily Use) - PO 17 gm DAILY [facility] Administration Tamsulosin HCl 0.4 mg 09/22/18 08:30 09/25/18 09:15 Flomax - PO 0.4 mg DAILY@0830 [facility] Administration Torsemide 40 mg/ Torsemide 10 50 mg 09/25/18 06:00 09/25/18 14:14 mg PO 50 mg BIDLASIX [facility] Administration Warfarin Sodium 2 mg 09/23/18 18:00 09/24/18 17:14 Coumadin - PO 2 mg DAILY@1800 [facility] Administration - Objective Vital Signs Period Temp Pulse Resp BP Sys/Gregory Pulse Ox Last 24 Hr 97.5 F-98.2 F 65-69 18-20 135-153/58-69 98 Constitutional: Yes: No Distress, Calm Eyes: No: Sclera Icterus HENT: No: Nasal Congestion Cardiovascular: Yes: Regular Rate and Rhythm, S1, S2, Other (PMI non diplaced). No: Gallop, Murmur Respiratory: Yes: Regular, Wheezes (faint R lung). No: Accessory Muscle Use, Diminished, Rales, Rhonchi Gastrointestinal: Yes: Normal Bowel Sounds, Soft. No: Tenderness Extremities: No: Cold, Cyanosis Edema: Yes (trace pretib) Integumentary: No: Jaundice Neurological: Yes: Alert, Oriented (x3) Psychiatric: No: Agitated CBC, BMP 09/24/18 06:30 09/25/18 07:00 cxr: no congestion MIBI 07/05 (pers): no STs; small area apical isch and basal inferolateral wall; mild global LV hypo, EF 46% mibi 08/2018: lvef 66, no ischemia ecg: afib, rate ok, no ischemic changes Echo 07/2018: nl lv/rv, lae, mild mr/tr/ar, nl rvsp Echo 10/07: 1. The left ventricular size is normal. 2. Overall left ventricular systolic function is normal with, an EF between 60 - 65 %. 3. LA pressure is uncertain. 4. No regional wall motion abnormalities were noted (basal inferolateral wall may be mildly hypokinetic). 5. The right ventricle is normal in size and function. 6. Left atrium is severely dilated by volume. 7. There is mild aortic regurgitation. 8. The mitral valve is normal in appearance, with no prolapse, flail leaflet, or tethered motion noted. 9. 2 separate MR jets are present: one directed anteriorly, the other central. The anterior jet hugs the antreior LA wall/interatrial septum and is not seen to wrap around the posterior LA wall. The visual appearance is of moderate mitral regurgitation, however the eccentric nature of the anterior jet may lead to underestimation of MR severity on color jet flow analysis. The peak mitral inflow velocity (0.7 m/sec) makes severe mitral regurgitation less likely. There is no systolic flow reversal present in the pulmonary vein. PISA hemisphere could not be measured. Estimated regurgitant volume by volumetric measurements yields and estimate of 35 cc. 10. Mild tricuspid regurgitation present. 11. Unable to estimate RVSP due to inadequate TR jet spectral doppler profile. CT chest: L basilar opacity, trace bilat pleural effusions decr vs prior. mild bibasilar ATX Assessment/Plan myoclonic jerks: -seen by neuro here. impression is Toxic-Metabolic Encephalopathy (improving) and myoclonic jerks, as well as diabetic Peripheral Neuropathy -no acute CVA -carotid dopplers c/w 90-99% stenosis--dr holguin consulted (pending). - per Dr. Sanchez: PLEASE NOTE THAT PT FOLLOWS WITH DR JOHNSON CLOSELY FOR SERIAL MONITORING OF CAROTIDS, FELT TO BE NON-OBSTRUCTIVE ON LAST OUTPATIENT EVALUATON chronic diastolic HF, functional MR (very bp sensitive during outpatient ANA) - BNP similar to prior values - no congestion on CXR - cont carvedilol, holding ARB for LUIS - was on torsemide 100 mg BID and metolazone until two days [employer] when Cr rising, held diuretics for two days and took torsemide 50 mg x1 day prior to admission. wt and edema improved signif at that time, no more JVD--felt to be dry despite ongoing cough/wheeze (with normal cxr) and 1+ pretib edema (c/w known prior venous insuff baseline). - hold torsemide as patient likely dry, restart when Cr normalizes - would avoid IVF -3/2: Appearing near euvolemic. Agree with holding Torsemide and follow Creat. -3/3: Cough, doubt pulmonary venous congestion, but will get CXR today and BNP to help guide resuming diuresis. Continue to hold Toresemide as Creat continues to decline 2.4 today. -3/4: office wt 09/16 was 156 (likely dry vs euvolemic then). wt [address] chest no signif pulm congestion. BUN/Cr at baseline, euvolemic -3/-6 appears euvolemic, Cr at baseline. 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 -no anginal sx's, no signs acs here. HTN: - h/o labile BPs (worse MR/CHF when bp's uncontrolled, low with orthostatic sx' s at times as well) - ARB held for LUIS recently - was on hydralazine, nitro gtt, clonidine gtt at home as well--not being given here - bp controlled here - cont home carvedilol. will need re-initiation of some of his bp meds later as outpatient, as his bp inevitably will rise (which causes worsening of MR severity) LUIS on CKD: -baseline creat 2-2.2 -bun/creat peaked here at 80s/2.7. likely prerenal given absence of findings suggestive of vol overload/chf -renal fxn improving
[2018-09-25] MEDS: WARFARIN NA 2 MG TABLET (UD) PO SCH (17:22)
[2018-09-25] MEDS ORDERED: INSULIN (NOVOLOG) ASPART 100 UNITS/ML 10ML VIAL ONE (21:09)
[2018-09-25] MEDS: INSULIN (LEVEMIR) 100 UNITS/ML UNITS SQ SCH (21:40)
[2018-09-25] MEDS: ATORVASTATIN CA 20 MG TABLET (FP) PO SCH (21:40)
[2018-09-26] MEDS ORDERED: PIPERACILLIN/TAZOBACTAM 2.25 GM VIAL IVPB ONE ×3 (02:47→17:30)
[2018-09-26] MEDS ORDERED: DEXTROSE 5%-WATER - 50 ML IVPB ONE ×3 (02:47→17:30)
[2018-09-26] MEDS: PIPERACILLIN/TAZOB 2.25 GM 2.25 GM in DEXTROSE 5%-WATER - 50 ML IVPB SCH ×3 (02:51→17:39)
[2018-09-26] MEDS: TORSEMIDE 40 MG, TORSEMIDE 10 MG PO SCH ×2 (06:36→15:05)
[2018-09-26] MEDS: INSULIN SLIDING SCALE (NOVOLOG) 1 VIAL SQ SCH ×4 (06:36→21:34)
[2018-09-26] MEDS ORDERED: INSULIN (NOVOLOG MIX 70/30) 100 UNITS/ML MDV SQ ONE (07:06)
[2018-09-26] MEDS ORDERED: INSULIN (NOVOLOG) ASPART 100 UNITS/ML 10ML VIAL ONE (07:06)
[2018-09-26] MEDS ORDERED: INSULIN (LEVEMIR) 100 UNITS/ML UNITS SQ ONE (07:06)
[2018-09-26 08:45] LABS: INR 2.94 (0.83-1.09); PROTHROMBIN TIME (PATIENT) 35.1 SEC (9.7-13.0)
[2018-09-26] MEDS: CARVEDILOL 25 MG TABLET (FP) PO SCH ×2 (09:31→21:31)
[2018-09-26] MEDS: TAMSULOSIN HCL 0.4 MG CAP PO SCH (09:31)
[2018-09-26] MEDS: POLYETHYLENE GLYCOL 3350 119 GM BTL PO SCH (09:37)
--- NOTE | 2018-09-26 11:44 | PN ---
Progress Note (short form) - Note Progress Note: s: no sob, palps, chest pain, dizzy Current Medications Generic Name Dose Route Start Last Admin Trade Name Freq PRN Reason Stop Dose Admin Acetaminophen 650 mg 09/20/18 10:01 Tylenol - PO Q4H PRN PAIN Atorvastatin Calcium 20 mg 09/21/18 22:00 09/25/18 21:40 Lipitor - PO 20 mg HS [facility] Administration Benzocaine/Menthol 1 each 09/22/18 15:58 09/22/18 21:37 Cepacol Lozenge - MM 1 each PRN PRN Administration SORE THROAT Carvedilol 25 mg 09/20/18 22:00 09/26/18 09:31 Coreg - PO 25 mg BID [facility] Administration Guaifenesin 10 ml 09/22/18 15:58 09/25/18 21:40 Robitussin - PO 10 ml Q4H PRN Administration COUGH Piperacillin Sod/Tazobactam 50 mls @ 100 mls/hr 09/22/18 15:15 09/26/18 09:30 Sod 2.25 gm/ Dextrose IVPB 100 mls/hr Q8H-IV [facility] Administration Protocol Insulin Aspart 1 vial 09/21/18 16:30 09/26/18 06:36 Novolog Vial Sliding Scale - SQ Not Given ACHS [facility] Protocol Insulin Detemir 8 units 09/21/18 22:00 09/25/18 21:40 Levemir Vial SQ 8 units HS [facility] Administration Phenol/Menthol 1 spray 09/22/18 15:58 Chloraseptic - MM Q6H PRN SORE THROAT Polyethylene Glycol 17 gm 09/21/18 15:15 09/26/18 09:37 Miralax (For Daily Use) - PO 17 gm DAILY [facility] Administration Tamsulosin HCl 0.4 mg 09/22/18 08:30 09/26/18 09:31 Flomax - PO 0.4 mg DAILY@0830 [facility] Administration Torsemide 40 mg/ Torsemide 10 50 mg 09/25/18 06:00 09/26/18 06:36 mg PO 50 mg BIDLASIX [facility] Administration Warfarin Sodium 2 mg 09/23/18 18:00 09/25/18 17:22 Coumadin - PO 2 mg DAILY@1800 [facility] Administration - Objective Vital Signs Period Temp Pulse Resp BP Sys/Gregory Pulse Ox Last 24 Hr 97.4 F-98.2 F 65-80 19-20 142-151/58-82 98 Constitutional: Yes: No Distress, Calm Eyes: No: Sclera Icterus HENT: No: Nasal Congestion Cardiovascular: Yes: Regular Rate and Rhythm, S1, S2, Other (PMI non diplaced). No: Gallop, Murmur Respiratory: Yes: Regular, Wheezes (faint R lung). No: Accessory Muscle Use, Diminished, Rales, Rhonchi Gastrointestinal: Yes: Normal Bowel Sounds, Soft. No: Tenderness Extremities: No: Cold, Cyanosis Edema: Yes (trace pretib) Integumentary: No: Jaundice Neurological: Yes: Alert, Oriented (x3) Psychiatric: No: Agitated CBC, BMP 09/24/18 06:30 09/25/18 07:00 cxr: no congestion MIBI 07/05 (pers): no STs; small area apical isch and basal inferolateral wall; mild global LV hypo, EF 46% mibi 08/2018: lvef 66, no ischemia ecg: afib, rate ok, no ischemic changes Echo 07/2018: nl lv/rv, lae, mild mr/tr/ar, nl rvsp Echo 10/07: 1. The left ventricular size is normal. 2. Overall left ventricular systolic function is normal with, an EF between 60 - 65 %. 3. LA pressure is uncertain. 4. No regional wall motion abnormalities were noted (basal inferolateral wall may be mildly hypokinetic). 5. The right ventricle is normal in size and function. 6. Left atrium is severely dilated by volume. 7. There is mild aortic regurgitation. 8. The mitral valve is normal in appearance, with no prolapse, flail leaflet, or tethered motion noted. 9. 2 separate MR jets are present: one directed anteriorly, the other central. The anterior jet hugs the antreior LA wall/interatrial septum and is not seen to wrap around the posterior LA wall. The visual appearance is of moderate mitral regurgitation, however the eccentric nature of the anterior jet may lead to underestimation of MR severity on color jet flow analysis. The peak mitral inflow velocity (0.7 m/sec) makes severe mitral regurgitation less likely. There is no systolic flow reversal present in the pulmonary vein. PISA hemisphere could not be measured. Estimated regurgitant volume by volumetric measurements yields and estimate of 35 cc. 10. Mild tricuspid regurgitation present. 11. Unable to estimate RVSP due to inadequate TR jet spectral doppler profile. CT chest: L basilar opacity, trace bilat pleural effusions decr vs prior. mild bibasilar ATX Assessment/Plan myoclonic jerks: -seen by neuro here. impression is Toxic-Metabolic Encephalopathy (improving) and myoclonic jerks, as well as diabetic Peripheral Neuropathy -no acute CVA -carotid dopplers c/w 90-99% stenosis--dr holguin consulted (pending). - per Dr. Sanchez: PLEASE NOTE THAT PT FOLLOWS WITH DR JOHNSON CLOSELY FOR SERIAL MONITORING OF CAROTIDS, FELT TO BE NON-OBSTRUCTIVE ON LAST OUTPATIENT EVALUATON chronic diastolic HF, functional MR (very bp sensitive during outpatient ANA) - BNP similar to prior values - no congestion on CXR - cont carvedilol, holding ARB for LUIS - was on torsemide 100 mg BID and metolazone until two days [employer] when Cr rising, held diuretics for two days and took torsemide 50 mg x1 day prior to admission. wt and edema improved signif at that time, no more JVD--felt to be dry despite ongoing cough/wheeze (with normal cxr) and 1+ pretib edema (c/w known prior venous insuff baseline). - hold torsemide as patient likely dry, restart when Cr normalizes - would avoid IVF -3/2: Appearing near euvolemic. Agree with holding Torsemide and follow Creat. -3/3: Cough, doubt pulmonary venous congestion, but will get CXR today and BNP to help guide resuming diuresis. Continue to hold Toresemide as Creat continues to decline 2.4 today. -3/4: office wt 09/16 was 156 (likely dry vs euvolemic then). wt [address] chest no signif pulm congestion. BUN/Cr at baseline, euvolemic -3/-7 appears euvolemic, Cr at baseline. 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 -no anginal sx's, no signs acs here. HTN: - h/o labile BPs (worse MR/CHF when bp's uncontrolled, low with orthostatic sx' s at times as well) - ARB held for LUIS recently - was on hydralazine, nitro gtt, clonidine gtt at home as well--not being given here - bp controlled here - cont home carvedilol. will need re-initiation of some of his bp meds later as outpatient, as his bp inevitably will rise (which causes worsening of MR severity) LUIS on CKD: -baseline creat 2-2.2 -bun/creat peaked here at 80s/2.7. likely prerenal given absence of findings suggestive of vol overload/chf -renal fxn improving cardiac walsh stable
--- NOTE | 2018-09-26 14:03 | PN ---
Progress Note, Physician Chief Complaint: patient seen and examined said he could not sleep last night bc of coughing kept him awake - Current Medication List Current Medications: Active Medications Acetaminophen (Tylenol -) 650 mg PO Q4H PRN PRN Reason: PAIN Atorvastatin Calcium (Lipitor -) 20 mg PO HS [facility] Last Admin: 09/25/18 21:40 Dose: 20 mg Benzocaine/Menthol (Cepacol Lozenge -) 1 each MM PRN PRN PRN Reason: SORE THROAT Last Admin: 09/22/18 21:37 Dose: 1 each Carvedilol (Coreg -) 25 mg PO BID [facility] Last Admin: 09/26/18 09:31 Dose: 25 mg Guaifenesin (Robitussin -) 10 ml PO Q4H PRN PRN Reason: COUGH Last Admin: 09/25/18 21:40 Dose: 10 ml Piperacillin Sod/Tazobactam (Sod 2.25 gm/ Dextrose) 50 mls @ 100 mls/hr IVPB Q8H-IV [facility]; Protocol Last Admin: 09/26/18 09:30 Dose: 100 mls/hr Insulin Aspart (Novolog Vial Sliding Scale -) 1 vial SQ [facility]; Protocol Last Admin: 09/26/18 11:48 Dose: 4 units Insulin Detemir (Levemir Vial) 8 units SQ [facility] Last Admin: 09/25/18 21:40 Dose: 8 units Phenol/Menthol (Chloraseptic -) 1 spray MM Q6H PRN PRN Reason: SORE THROAT Polyethylene Glycol (Miralax (For Daily Use) -) 17 gm PO DAILY [facility] Last Admin: 09/26/18 09:37 Dose: 17 gm Tamsulosin HCl (Flomax -) 0.4 mg PO DAILY@0830 [facility] Last Admin: 09/26/18 09:31 Dose: 0.4 mg Torsemide 40 mg/ Torsemide 10 (mg) 50 mg PO BIDLASIX [facility] Last Admin: 09/26/18 06:36 Dose: 50 mg Warfarin Sodium (Coumadin -) 2 mg PO DAILY@1800 [facility] Last Admin: 09/25/18 17:22 Dose: 2 mg - Objective Vital Signs: Vital Signs Temperature 97.4 F L 09/26/18 09:27 Pulse Rate 77 09/26/18 09:27 Respiratory Rate 19 09/26/18 09:27 Blood Pressure 142/64 09/26/18 09:27 O2 Sat by Pulse Oximetry (%) 98 09/26/18 09:00 Constitutional: Yes: Calm Cardiovascular: Yes: Regular Rate and Rhythm, S1, S2 Respiratory: Yes: Other (crackles) Gastrointestinal: Yes: Normal Bowel Sounds, Soft Edema: Yes Neurological: Yes: Alert Labs: CBC, BMP 09/24/18 06:30 09/25/18 07:00 INR, PTT INR 2.94 (0.83-1.09) H 09/26/18 07:00 Problem List - Problems (1) PNA (pneumonia) Assessment/Plan: zosyn robitusssin Code(s): J18.9 - PNEUMONIA, UNSPECIFIED ORGANISM Qualifiers: Pneumonia type: due to unspecified organism Laterality: left Lung location: lower lobe of lung Qualified Code(s): J18.1 - Lobar pneumonia, unspecified organism (2) CHF (congestive heart failure) Assessment/Plan: torsemide bid Code(s): I50.9 - HEART FAILURE, UNSPECIFIED (3) Afib Assessment/Plan: couamdin coreg Code(s): I48.91 - UNSPECIFIED ATRIAL FIBRILLATION Qualifiers: Atrial fibrillation type: paroxysmal Qualified Code(s): I48.0 - Paroxysmal atrial fibrillation (4) BPH (benign prostatic hyperplasia) Assessment/Plan: flomax Code(s): N40.0 - BENIGN PROSTATIC HYPERPLASIA WITHOUT LOWER URINRY TRACT SYMP (5) CAD (coronary artery disease) Assessment/Plan: on statin no aspirin as in on coumadin Code(s): I25.10 - ATHSCL HEART DISEASE OF [place] CORONARY ARTERY W/O ANG PCTRS
[2018-09-26 14:29] VITALS: BMI 25.0
--- NOTE | 2018-09-26 15:07 | PN ---
Progress Note (short form) - Note Progress Note: Renal follow up for LUIS on CKD Pt seen and examined at the bedside feels better has leg edema Vital Signs Period Temp Pulse Resp BP Sys/Gregory Pulse Ox Last 24 Hr 97.4 F-97.8 F 67-83 19-20 139-150/60-82 98-98 NAD + edema in LE CBC, BMP 09/24/18 06:30 09/25/18 07:00 Current Medications Acetaminophen (Tylenol -) 650 mg PO Q4H PRN PRN Reason: PAIN Atorvastatin Calcium (Lipitor -) 20 mg PO HS [facility] Last Admin: 09/25/18 21:40 Dose: 20 mg Benzocaine/Menthol (Cepacol Lozenge -) 1 each MM PRN PRN PRN Reason: SORE THROAT Last Admin: 09/22/18 21:37 Dose: 1 each Carvedilol (Coreg -) 25 mg PO BID [facility] Last Admin: 09/26/18 09:31 Dose: 25 mg Guaifenesin (Robitussin -) 10 ml PO Q4H PRN PRN Reason: COUGH Last Admin: 09/25/18 21:40 Dose: 10 ml Piperacillin Sod/Tazobactam (Sod 2.25 gm/ Dextrose) 50 mls @ 100 mls/hr IVPB Q8H-IV [facility]; Protocol Last Admin: 09/26/18 09:30 Dose: 100 mls/hr Insulin Aspart (Novolog Vial Sliding Scale -) 1 vial SQ [facility]; Protocol Last Admin: 09/26/18 11:48 Dose: 4 units Insulin Detemir (Levemir Vial) 8 units SQ [facility] Last Admin: 09/25/18 21:40 Dose: 8 units Phenol/Menthol (Chloraseptic -) 1 spray MM Q6H PRN PRN Reason: SORE THROAT Polyethylene Glycol (Miralax (For Daily Use) -) 17 gm PO DAILY [facility] Last Admin: 09/26/18 09:37 Dose: 17 gm Tamsulosin HCl (Flomax -) 0.4 mg PO DAILY@0830 [facility] Last Admin: 09/26/18 09:31 Dose: 0.4 mg Torsemide 40 mg/ Torsemide 10 (mg) 50 mg PO BIDLASIX [facility] Last Admin: 09/26/18 15:05 Dose: 50 mg Warfarin Sodium (Coumadin -) 2 mg PO DAILY@1800 [facility] Last Admin: 09/25/18 17:22 Dose: 2 mg 83 y/o male with Chr Afib on Coumadin, CAD, CKD stage 3 admitted w/ cough, sob, tremors, weakness with Cr of 2.7 (baseline Cr ~2) #LUIS on CKD in setting of high dose diuretics and intravascular volume depletion #Hx of HF #Suspected PNA #Anemia #BPH Renal function stable continue torsemide 50mg Daily for management of edema avoid nephrotoxins low salt diet Cardiology following Thank you Ramy Contreras DO
[2018-09-26] MEDS: WARFARIN NA 2 MG TABLET (UD) PO SCH (17:38)
[2018-09-26] MEDS: ATORVASTATIN CA 20 MG TABLET (FP) PO SCH (21:31)
[2018-09-26] MEDS: INSULIN (LEVEMIR) 100 UNITS/ML UNITS SQ SCH (21:31)
[2018-09-26] MEDS: guaiFENesin 200 MG/10 ML 10 ML UNIT-DOSE CUPS PO PRN (21:33)
[2018-09-27] MEDS ORDERED: PIPERACILLIN/TAZOBACTAM 2.25 GM VIAL IVPB ONE ×3 (00:12→17:35)
[2018-09-27] MEDS ORDERED: DEXTROSE 5%-WATER - 50 ML IVPB ONE ×3 (00:13→17:35)
[2018-09-27] MEDS: PIPERACILLIN/TAZOB 2.25 GM 2.25 GM in DEXTROSE 5%-WATER - 50 ML IVPB SCH ×3 (02:26→17:52)
[2018-09-27] MEDS ORDERED: PT OWN MED DRAWER 7, Y5N ONE ×2 (05:41→18:44)
[2018-09-27] MEDS: TORSEMIDE 40 MG, TORSEMIDE 10 MG PO SCH ×2 (06:04→13:53)
[2018-09-27] MEDS: INSULIN SLIDING SCALE (NOVOLOG) 1 VIAL SQ SCH ×4 (06:05→23:14)
[2018-09-27 07:07] LABS: BASO % 0.7 % (0-2.0); EOS % 2.3 % (0-4.5); HEMOGLOBIN 11.3 GM/dL (11.7-16.9); LYMPH % 19.9 % (8-40); MCH 33.4 pg (25.7-33.7); MCHC 35.3 g/dl (32.0-35.9); MEAN CELL VOLUME 94.5 fl (80-96); MEAN PLT VOLUME 9.9 fl (7.5-11.1); MONO % 10.5 % (3.8-10.2); NEUT % 66.6 % (42.8-82.8); PLATELET COUNT 139 K/MM3 (134-434); RBC 3.39 M/mm3 (4.00-5.60); RDW 14.2 % (11.9-15.9)
[2018-09-27 08:10] LABS: ALBUMIN 2.7 g/dl (3.4-5.0); ALK PHOS 100 U/L (45-117); ANION GAP 7 MMOL/L (8-16); BLOOD UREA NITROGEN 50 mg/dL (7-18); CALCIUM 8.3 mg/dL (8.5-10.1); CHLORIDE 99 mmol/L (98-107); CO2 32 mmol/L (21-32); CREATININE 2.1 mg/dL (0.55-1.3); GLUCOSE,RANDOM 158 mg/dL (74-106); SGOT/AST 16 U/L (15-37); SGPT/ALT 12 U/L (13-61); SODIUM 137 mmol/L (136-145); TOT PROT 5.8 g/dl (6.4-8.2)
[2018-09-27] MEDS: TAMSULOSIN HCL 0.4 MG CAP PO SCH (09:13)
[2018-09-27] MEDS: CARVEDILOL 25 MG TABLET (FP) PO SCH ×2 (09:13→22:13)
[2018-09-27] MEDS: POLYETHYLENE GLYCOL 3350 119 GM BTL PO SCH (09:14)
--- NOTE | 2018-09-27 12:42 | PN ---
Progress Note (short form) - Note Progress Note: Renal follow up for LUIS on CKD Pt seen and examined at the bedside cough improved no sob, cp Vital Signs Temperature 97.6 F 09/27/18 09:12 Pulse Rate 78 09/27/18 09:12 Respiratory Rate 19 09/27/18 09:12 Blood Pressure 126/60 09/27/18 09:12 O2 Sat by Pulse Oximetry (%) 98 09/27/18 09:00 Intake & Output 09/24/18 09/25/18 09/26/18 09/27/18 23:59 23:59 23:59 23:59 Intake Total 558 077 8936 120 Balance 921 160 7471 120 Weight 67.676 kg 68.266 kg 68.039 kg 67.642 kg NAD + edema in LE CBC, BMP 09/27/18 06:10 09/27/18 06:10 Current Medications Acetaminophen (Tylenol -) 650 mg PO Q4H PRN PRN Reason: PAIN Atorvastatin Calcium (Lipitor -) 20 mg PO HS [facility] Last Admin: 09/26/18 21:31 Dose: 20 mg Benzocaine/Menthol (Cepacol Lozenge -) 1 each MM PRN PRN PRN Reason: SORE THROAT Last Admin: 09/22/18 21:37 Dose: 1 each Carvedilol (Coreg -) 25 mg PO BID [facility] Last Admin: 09/27/18 09:13 Dose: 25 mg Guaifenesin (Robitussin -) 10 ml PO Q4H PRN PRN Reason: COUGH Last Admin: 09/26/18 21:33 Dose: 10 ml Piperacillin Sod/Tazobactam (Sod 2.25 gm/ Dextrose) 50 mls @ 100 mls/hr IVPB Q8H-IV [facility]; Protocol Last Admin: 09/27/18 09:13 Dose: 100 mls/hr Insulin Aspart (Novolog Vial Sliding Scale -) 1 vial SQ [facility]; Protocol Last Admin: 09/27/18 12:04 Dose: 8 units Insulin Detemir (Levemir Vial) 8 units SQ [facility] Last Admin: 09/26/18 21:31 Dose: 8 units Phenol/Menthol (Chloraseptic -) 1 spray MM Q6H PRN PRN Reason: SORE THROAT Polyethylene Glycol (Miralax (For Daily Use) -) 17 gm PO DAILY [facility] Last Admin: 09/27/18 09:14 Dose: 17 gm Tamsulosin HCl (Flomax -) 0.4 mg PO DAILY@0830 [facility] Last Admin: 09/27/18 09:13 Dose: 0.4 mg Torsemide 40 mg/ Torsemide 10 (mg) 50 mg PO BIDLASIX [facility] Last Admin: 09/27/18 06:04 Dose: 50 mg Warfarin Sodium (Coumadin -) 2 mg PO DAILY@1800 [facility] Last Admin: 09/26/18 17:38 Dose: 2 mg 83 y/o male with Chr Afib on Coumadin, CAD, CKD stage 3 admitted w/ cough, sob, tremors, weakness with Cr of 2.7 (baseline Cr ~2) #LUIS on CKD in setting of high dose diuretics and intravascular volume depletion #Hx of HF #Suspected PNA #Anemia #BPH Renal function stable continue torsemide 50mg Daily for management of edema Trend renal function and electrolytes Thank you Ramy Contreras DO
--- NOTE | 2018-09-27 14:32 | PN ---
Progress Note (short form) - Note Progress Note: cough resolved feels well chest ct with small left LL infiltrate Vital Signs Period Temp Pulse Resp BP Sys/Gregory Pulse Ox Last 24 Hr 97.6 F-98.2 F 71-83 19-20 126-146/52-71 98-98 cor-rrr lungs clear abd soft,nt ext venous stasis changes CBC, BMP 09/27/18 06:10 09/27/18 06:10 Microbiology 09/22/18 16:10 Nares - Mrsa Screen - Right MRSA Screen - Final NO MRSA ISOLATED 09/22/18 16:10 Nares - Mrsa Screen - Left MRSA Screen - Final NO MRSA ISOLATED 09/22/18 19:00 Urine For Antigen Detection Legionella Antigen - Final 09/22/18 19:00 Urine For Antigen Detection Streptococcus pneumoniae Antigen (M - Final Current Medications Acetaminophen (Tylenol -) 650 mg PO Q4H PRN PRN Reason: PAIN Atorvastatin Calcium (Lipitor -) 20 mg PO HS [facility] Last Admin: 09/26/18 21:31 Dose: 20 mg Benzocaine/Menthol (Cepacol Lozenge -) 1 each MM PRN PRN PRN Reason: SORE THROAT Last Admin: 09/22/18 21:37 Dose: 1 each Carvedilol (Coreg -) 25 mg PO BID [facility] Last Admin: 09/27/18 09:13 Dose: 25 mg Guaifenesin (Robitussin -) 10 ml PO Q4H PRN PRN Reason: COUGH Last Admin: 09/26/18 21:33 Dose: 10 ml Piperacillin Sod/Tazobactam (Sod 2.25 gm/ Dextrose) 50 mls @ 100 mls/hr IVPB Q8H-IV [facility]; Protocol Last Admin: 09/27/18 09:13 Dose: 100 mls/hr Insulin Aspart (Novolog Vial Sliding Scale -) 1 vial SQ [facility]; Protocol Last Admin: 09/27/18 12:04 Dose: 8 units Insulin Detemir (Levemir Vial) 8 units SQ HS [facility] Last Admin: 09/26/18 21:31 Dose: 8 units Phenol/Menthol (Chloraseptic -) 1 spray MM Q6H PRN PRN Reason: SORE THROAT Polyethylene Glycol (Miralax (For Daily Use) -) 17 gm PO DAILY [facility] Last Admin: 09/27/18 09:14 Dose: 17 gm Tamsulosin HCl (Flomax -) 0.4 mg PO DAILY@0830 [facility] Last Admin: 09/27/18 09:13 Dose: 0.4 mg Torsemide 40 mg/ Torsemide 10 (mg) 50 mg PO BIDLASIX [facility] Last Admin: 09/27/18 13:53 Dose: 50 mg Warfarin Sodium (Coumadin -) 2 mg PO DAILY@1800 [facility] Last Admin: 09/26/18 17:38 Dose: 2 mg imp/reccd pneumonia cough resolved chest ct small LLL infiltrate suggest influenza swab urine antigens for pneumonia nares swab for MRSA d/c chayito in am d/w dr saha
--- NOTE | 2018-09-27 15:46 | DS ---
Physical Examination Vital Signs: Vital Signs Temperature 97.5 F L 09/27/18 14:45 Pulse Rate 68 09/27/18 14:45 Respiratory Rate 18 09/27/18 14:45 Blood Pressure 153/62 09/27/18 14:45 O2 Sat by Pulse Oximetry (%) 98 09/27/18 09:00 awake alert in selerium says he has a cough Constitutional: Yes: Calm Cardiovascular: Yes: Regular Rate and Rhythm, S1, S2 Respiratory: Yes: CTA Bilaterally Gastrointestinal: Yes: Normal Bowel Sounds, Soft Edema: Yes Neurological: Yes: Alert Labs: CBC, BMP 09/27/18 06:10 09/27/18 06:10 Discharge Summary Reason For Visit: DIFFICULTY BREATHING Current Active Problems CAD (coronary artery disease) (Acute) CHF (congestive heart failure) (Acute) Hypernatremia (Acute) Hypokalemia (Acute) Jerking movements of extremities (Acute) PNA (pneumonia) (Acute) Weakness (Acute) Hospital Course: 83-year-old well with multiple medical problems including CHF with recent diuresis on torsemide presents now with cough but worsening physical decline over the last few days, having difficulty ambulating, decreased by mouth intake leading further dehydration. chest CT shows left lung opacity with PNA on iv abx zosyn to complete tmw morning start mucinex bid was on telemetry floor now on medsurg Pafib coumadin and coreg Condition: Fair - Instructions Referrals: Idris Borges MD [Primary Care Provider] - - Home Medications Comprehensive Discharge Medication List: Ambulatory Orders Lantus (10mL VIAL) - 8 units SQ HS 11/03/16 Carvedilol [Coreg -] 25 mg PO BID #60 tablet 08/24/18 Clonidine Patch [Catapres Tts Patch -] 0.2 mg TD Q7D@1000 #4 patch.tdwk Cephalexin Monohydrate [Keflex -] 500 mg PO BID #4 capsule 09/11/18 Furosemide [Lasix -] 80 mg PO BID@0600,1400 #120 tablet 09/11/18 Insulin Aspart [Novolog] 0 unit SQ TID #1 ea 09/11/18 Polyethylene Glycol 3350 [Miralax 119 gm Btl -] 17 gm PO DAILY #1 bottle Simvastatin [Zocor -] 20 mg PO HS #30 tab 09/11/18 Tamsulosin HCl 0.4 mg PO DAILY #30 tab 09/11/18 Warfarin Na [Coumadin -] 2 mg PO SUMOTUTHFRSA #30 tab 09/11/18 Warfarin Na [Coumadin -] 3 mg PO We@1800 #10 tablet 09/11/18 Tamsulosin HCl [Flomax -] 0.4 mg PO DAILY@0830 #30 cap.er.24h MDD 1 09/12/18 Torsemide 50 mg PO DAILY 09/21/18
--- NOTE | 2018-09-27 16:01 | PN ---
Progress Note (short form) - Note Progress Note: patient seen and examined plan to go home with VNS tmw after 10:00am zosyn dose Problem List - Problems (1) PNA (pneumonia) Code(s): J18.9 - PNEUMONIA, UNSPECIFIED ORGANISM Qualifiers: Pneumonia type: due to unspecified organism Laterality: left Lung location: lower lobe of lung Qualified Code(s): J18.1 - Lobar pneumonia, unspecified organism (2) CHF (congestive heart failure) Code(s): I50.9 - HEART FAILURE, UNSPECIFIED (3) Afib Code(s): I48.91 - UNSPECIFIED ATRIAL FIBRILLATION Qualifiers: Atrial fibrillation type: paroxysmal Qualified Code(s): I48.0 - Paroxysmal atrial fibrillation (4) BPH (benign prostatic hyperplasia) Code(s): N40.0 - BENIGN PROSTATIC HYPERPLASIA WITHOUT LOWER URINRY TRACT SYMP (5) CAD (coronary artery disease) Code(s): I25.10 - ATHSCL HEART DISEASE OF [place] CORONARY ARTERY W/O ANG PCTRS
--- NOTE | 2018-09-27 17:13 | PN ---
Progress Note (short form) - Note Progress Note: Vascular Surgery CAlled to evaluate abnormal carotid doppler. CArotid studies show stenosis in BL ICA right greater than left. Right side is over 80 percent. Pt has Cr of 2.1 so CTA cannot be obtained. Cont medical management. Pt is followed closely with serial US in office by Dr. Luz. Please consult Dr. Luz for evaluation. Turner Rosales DO
[2018-09-27] MEDS: ATORVASTATIN CA 20 MG TABLET (FP) PO SCH (22:14)
[2018-09-27] MEDS: guaiFENesin 600 MG TABLET.ER (FP) PO SCH (22:14)
[2018-09-27 22:49] LABS: PROTHROMBIN TIME (PATIENT) 30.3 SEC (9.7-13.0)
[2018-09-27] MEDS: INSULIN (LEVEMIR) 100 UNITS/ML UNITS SQ SCH (23:13)
[2018-09-27 23:14] LABS: INR 2.54 (0.83-1.09)
[2018-09-28] MEDS ORDERED: PIPERACILLIN/TAZOBACTAM 2.25 GM VIAL IVPB ONE ×2 (01:46→11:26)
[2018-09-28] MEDS ORDERED: DEXTROSE 5%-WATER - 50 ML IVPB ONE ×2 (01:46→11:26)
[2018-09-28] MEDS: PIPERACILLIN/TAZOB 2.25 GM 2.25 GM in DEXTROSE 5%-WATER - 50 ML IVPB SCH ×2 (02:44→11:46)
[2018-09-28] MEDS: guaiFENesin 200 MG/10 ML 10 ML UNIT-DOSE CUPS PO PRN ×2 (02:57→21:34)
[2018-09-28] MEDS: TORSEMIDE 40 MG, TORSEMIDE 10 MG PO SCH ×2 (06:55→14:20)
[2018-09-28] MEDS: INSULIN SLIDING SCALE (NOVOLOG) 1 VIAL SQ SCH ×4 (06:55→21:35)
[2018-09-28] MEDS ORDERED: INSULIN (LEVEMIR) 100 UNITS/ML UNITS SQ ONE (07:03)
[2018-09-28 07:04] LABS: INR 2.64 (0.83-1.09); PROTHROMBIN TIME (PATIENT) 31.5 SEC (9.7-13.0)
[2018-09-28] MEDS ORDERED: INSULIN (NOVOLOG) ASPART 100 UNITS/ML 10ML VIAL ONE ×2 (07:04→12:35)
[2018-09-28] MEDS: TAMSULOSIN HCL 0.4 MG CAP PO SCH (08:13)
[2018-09-28] MEDS: CARVEDILOL 25 MG TABLET (FP) PO SCH ×2 (09:35→21:34)
[2018-09-28] MEDS: guaiFENesin 600 MG TABLET.ER (FP) PO SCH ×2 (09:35→21:34)
[2018-09-28] MEDS: POLYETHYLENE GLYCOL 3350 119 GM BTL PO SCH (09:35)
--- NOTE | 2018-09-28 11:44 | PN ---
Progress Note (short form) - Note Progress Note: Renal follow up for LUIS on CKD Pt seen and examined at the bedside cough resolved no acute complaints feels like he is at his baseline Vital Signs Temperature 97.5 F L 09/28/18 06:00 Pulse Rate 90 09/28/18 08:25 Respiratory Rate 18 09/28/18 08:25 Blood Pressure 148/72 09/28/18 08:25 O2 Sat by Pulse Oximetry (%) 97 09/27/18 21:00 NAD + edema in LE CBC, BMP 09/27/18 06:10 09/27/18 06:10 Current Medications Acetaminophen (Tylenol -) 650 mg PO Q4H PRN PRN Reason: PAIN Atorvastatin Calcium (Lipitor -) 20 mg PO [facility] Last Admin: 09/27/18 22:14 Dose: 20 mg Benzocaine/Menthol (Cepacol Lozenge -) 1 each MM PRN PRN PRN Reason: SORE THROAT Last Admin: 09/22/18 21:37 Dose: 1 each Carvedilol (Coreg -) 25 mg PO BID [facility] Last Admin: 09/28/18 09:35 Dose: 25 mg Guaifenesin (Robitussin -) 10 ml PO Q4H PRN PRN Reason: COUGH Last Admin: 09/28/18 02:57 Dose: 10 ml Guaifenesin (Mucinex -) 600 mg PO BID [facility] Last Admin: 09/28/18 09:35 Dose: 600 mg Insulin Aspart (Novolog Vial Sliding Scale -) 1 vial SQ [facility]; Protocol Last Admin: 09/28/18 06:55 Dose: 6 units Insulin Detemir (Levemir Vial) 8 units SQ [facility] Last Admin: 09/27/18 23:13 Dose: Not Given Phenol/Menthol (Chloraseptic -) 1 spray MM Q6H PRN PRN Reason: SORE THROAT Polyethylene Glycol (Miralax (For Daily Use) -) 17 gm PO DAILY [facility] Last Admin: 09/28/18 09:35 Dose: 17 gm Tamsulosin HCl (Flomax -) 0.4 mg PO DAILY@0830 [facility] Last Admin: 09/28/18 08:13 Dose: 0.4 mg Torsemide 40 mg/ Torsemide 10 (mg) 50 mg PO BIDLASIX [facility] Last Admin: 09/28/18 06:55 Dose: 50 mg Warfarin Sodium (Coumadin -) 2 mg PO DAILY@1800 [facility] Last Admin: 09/26/18 17:38 Dose: 2 mg 83 y/o male with Chr Afib on Coumadin, CAD, CKD stage 3 admitted w/ cough, sob, tremors, weakness with Cr of 2.7 (baseline Cr ~2) #LUIS on CKD in setting of high dose diuretics and intravascular volume depletion #Hx of HF #Suspected PNA #Anemia #BPH Renal function stable continue present diuretics will need renal follow up as outpatient for CKD management discharge planning as per primary Thank you Ramy Contreras DO
--- NOTE | 2018-09-28 12:29 | PN ---
Progress Note, Physician Chief Complaint: c/o cough - Current Medication List Current Medications: Active Medications Acetaminophen (Tylenol -) 650 mg PO Q4H PRN PRN Reason: PAIN Albuterol/Ipratropium (Duoneb -) 1 amp NEB RQID COUNTS INCLUDE 234 BEDS AT THE [facility] Atorvastatin Calcium (Lipitor -) 20 mg PO HS COUNTS INCLUDE 234 BEDS AT [facility] Last Admin: 09/27/18 22:14 Dose: 20 mg Benzocaine/Menthol (Cepacol Lozenge -) 1 each MM PRN PRN PRN Reason: SORE THROAT Last Admin: 09/22/18 21:37 Dose: 1 each Carvedilol (Coreg -) 25 mg PO BID [facility]CLUDE 234 BEDS AT [facility] Last Admin: 09/28/18 09:35 Dose: 25 mg Guaifenesin (Robitussin -) 10 ml PO Q4H PRN PRN Reason: COUGH Last Admin: 09/28/18 02:57 Dose: 10 ml Guaifenesin (Mucinex -) 600 mg PO BID [facility]CLUDE 234 BEDS AT [facility] Last Admin: 09/28/18 09:35 Dose: 600 mg Insulin Aspart (Novolog Vial Sliding Scale -) 1 vial SQ [facility]; Protocol Last Admin: 09/28/18 06:55 Dose: 6 units Insulin Detemir (Levemir Vial) 8 units SQ [facility] Last Admin: 09/27/18 23:13 Dose: Not Given Phenol/Menthol (Chloraseptic -) 1 spray MM Q6H PRN PRN Reason: SORE THROAT Polyethylene Glycol (Miralax (For Daily Use) -) 17 gm PO DAILY [facility]CLUDE 234 BEDS AT [facility] Last Admin: 09/28/18 09:35 Dose: 17 gm Tamsulosin HCl (Flomax -) 0.4 mg PO DAILY@0830 [facility]S [facility]CLUDE 234 BEDS AT [facility] Last Admin: 09/28/18 08:13 Dose: 0.4 mg Torsemide 40 mg/ Torsemide 10 (mg) 50 mg PO BIDLASIX COUNTS INCLUDE 234 BEDS AT [facility] Last Admin: 09/28/18 06:55 Dose: 50 mg Warfarin Sodium (Coumadin -) 2 mg PO DAILY@1800 COUNTS INCLUDE 234 BEDS AT [facility] Last Admin: 09/26/18 17:38 Dose: 2 mg - Objective Vital Signs: Vital Signs Temperature 97.5 F L 09/28/18 06:00 Pulse Rate 90 09/28/18 08:25 Respiratory Rate 18 09/28/18 08:25 Blood Pressure 148/72 09/28/18 08:25 O2 Sat by Pulse Oximetry (%) 97 09/27/18 21:00 Cardiovascular: Yes: S1, S2 Respiratory: Yes: Rhonchi Gastrointestinal: Yes: Normal Bowel Sounds, Soft Labs: CBC, BMP 09/27/18 06:10 09/27/18 06:10 INR, PTT INR 2.64 (0.83-1.09) H 09/28/18 06:15 Problem List - Problems (1) CHF (congestive heart failure) Code(s): I50.9 - HEART FAILURE, UNSPECIFIED (2) Jerking movements of extremities Code(s): R25.2 - CRAMP AND SPASM (3) PNA (pneumonia) Code(s): J18.9 - PNEUMONIA, UNSPECIFIED ORGANISM Qualifiers: Pneumonia type: due to unspecified organism Laterality: left Lung location: lower lobe of lung Qualified Code(s): J18.1 - Lobar pneumonia, unspecified organism (4) Weakness Code(s): R53.1 - WEAKNESS (5) Acute kidney failure Code(s): N17.9 - ACUTE KIDNEY FAILURE, UNSPECIFIED (6) Afib Code(s): I48.91 - UNSPECIFIED ATRIAL FIBRILLATION Qualifiers: Atrial fibrillation type: paroxysmal Qualified Code(s): I48.0 - Paroxysmal atrial fibrillation Assessment/Plan - Problems (1) PNA (pneumonia) Assessment/Plan: completed zosyn robitusssin cxr Code(s): J18.9 - PNEUMONIA, UNSPECIFIED ORGANISM Qualifiers: Pneumonia type: due to unspecified organism Laterality: left Lung location: lower lobe of lung Qualified Code(s): J18.1 - Lobar pneumonia, unspecified organism (2) CHF (congestive heart failure) Assessment/Plan: torsemide bid Code(s): I50.9 - HEART FAILURE, UNSPECIFIED (3) Afib Assessment/Plan: couamdin coreg Code(s): I48.91 - UNSPECIFIED ATRIAL FIBRILLATION Qualifiers: Atrial fibrillation type: paroxysmal Qualified Code(s): I48.0 - Paroxysmal atrial fibrillation (4) BPH (benign prostatic hyperplasia) Assessment/Plan: flomax Code(s): N40.0 - BENIGN PROSTATIC HYPERPLASIA WITHOUT LOWER URINRY TRACT SYMP (5) CAD (coronary artery disease) Assessment/Plan: on statin no aspirin as in on coumadin Code(s): I25.10 - ATHSCL HEART DISEASE OF [place] CORONARY ARTERY W/O ANG PCTRS
[2018-09-28] MEDS: ALBUTEROL SO4 2.5/IPRATROPIUM 0.5 INH SOL 3 ML VIAL.NEB. NEB SCH ×2 (16:28→20:53)
[2018-09-28] MEDS: ATORVASTATIN CA 20 MG TABLET (FP) PO SCH (21:34)
[2018-09-28] MEDS: INSULIN (LEVEMIR) 100 UNITS/ML UNITS SQ SCH (21:34)
[2018-09-29] MEDS: INSULIN SLIDING SCALE (NOVOLOG) 1 VIAL SQ SCH ×4 (07:09→21:39)
[2018-09-29] MEDS: TORSEMIDE 40 MG, TORSEMIDE 10 MG PO SCH ×2 (07:10→14:39)
[2018-09-29] MEDS: ALBUTEROL SO4 2.5/IPRATROPIUM 0.5 INH SOL 3 ML VIAL.NEB. NEB SCH ×4 (07:25→21:00)
[2018-09-29] MEDS ORDERED: INSULIN (LEVEMIR) 100 UNITS/ML UNITS SQ ONE (07:52)
[2018-09-29] MEDS ORDERED: INSULIN (NOVOLOG) ASPART 100 UNITS/ML 10ML VIAL ONE ×3 (07:53→21:14)
[2018-09-29] MEDS: TAMSULOSIN HCL 0.4 MG CAP PO SCH (08:21)
[2018-09-29] MEDS: CARVEDILOL 25 MG TABLET (FP) PO SCH ×2 (10:09→21:39)
[2018-09-29] MEDS: guaiFENesin 600 MG TABLET.ER (FP) PO SCH ×2 (10:09→21:39)
[2018-09-29] MEDS: POLYETHYLENE GLYCOL 3350 119 GM BTL PO SCH (10:16)
--- NOTE | 2018-09-29 11:28 | PN ---
Progress Note (short form) - Note Progress Note: s: no sob, palps, chest pain, dizzy Current Medications Generic Name Dose Route Start Last Admin Trade Name Freq PRN Reason Stop Dose Admin Acetaminophen 650 mg 09/20/18 10:01 Tylenol - PO Q4H PRN PAIN Albuterol/Ipratropium 1 amp 09/28/18 16:00 09/29/18 07:25 Duoneb - NEB 1 amp RQID RAMU Administration Atorvastatin Calcium 20 mg 09/21/18 22:00 09/28/18 21:34 Lipitor - PO 20 mg HS RAMU Administration Benzocaine/Menthol 1 each 09/22/18 15:58 09/22/18 21:37 Cepacol Lozenge - MM 1 each PRN PRN Administration SORE THROAT Carvedilol 25 mg 09/20/18 22:00 09/29/18 10:09 Coreg - PO 25 mg BID RAMU Administration Guaifenesin 10 ml 09/22/18 15:58 09/28/18 21:34 Robitussin - PO 10 ml Q4H PRN Administration COUGH Guaifenesin 600 mg 09/27/18 22:00 09/29/18 10:09 Mucinex - PO 600 mg BID RAMU Administration Insulin Aspart 1 vial 09/21/18 16:30 09/29/18 07:09 Novolog Vial Sliding Scale - SQ 4 units ACHS RAMU Administration Protocol Insulin Detemir 8 units 09/21/18 22:00 09/28/18 21:34 Levemir Vial SQ 8 units HS RAMU Administration Phenol/Menthol 1 spray 09/22/18 15:58 Chloraseptic - MM Q6H PRN SORE THROAT Polyethylene Glycol 17 gm 09/21/18 15:15 09/28/18 09:35 Miralax (For Daily Use) - PO 17 gm DAILY RAMU Administration Tamsulosin HCl 0.4 mg 09/22/18 08:30 09/29/18 08:21 Flomax - PO 0.4 mg DAILY@0830 RAMU Administration Torsemide 40 mg/ Torsemide 10 50 mg 09/25/18 06:00 09/29/18 07:10 mg PO 50 mg BIDLASIX RAMU Administration - Objective Vital Signs Period Temp Pulse Resp BP Sys/Gregory Pulse Ox Last 24 Hr 97.6 F-98.9 F 73-85 18-20 134-162/59-81 96 Constitutional: Yes: No Distress, Calm Eyes: No: Sclera Icterus HENT: No: Nasal Congestion Cardiovascular: Yes: Regular Rate and Rhythm, S1, S2, Other (PMI non diplaced). No: Gallop, Murmur Respiratory: Yes: Regular, Wheezes (faint R lung). No: Accessory Muscle Use, Diminished, Rales, Rhonchi Gastrointestinal: Yes: Normal Bowel Sounds, Soft. No: Tenderness Extremities: No: Cold, Cyanosis Edema: Yes (trace pretib) Integumentary: No: Jaundice Neurological: Yes: Alert, Oriented (x3) Psychiatric: No: Agitated CBC, BMP 09/27/18 06:10 09/27/18 06:10 cxr: no congestion MIBI 07/05 (pers): no STs; small area apical isch and basal inferolateral wall; mild global LV hypo, EF 46% mibi 08/2018: lvef 66, no ischemia ecg: afib, rate ok, no ischemic changes Echo 07/2018: nl lv/rv, lae, mild mr/tr/ar, nl rvsp Echo 10/07: 1. The left ventricular size is normal. 2. Overall left ventricular systolic function is normal with, an EF between 60 - 65 %. 3. LA pressure is uncertain. 4. No regional wall motion abnormalities were noted (basal inferolateral wall may be mildly hypokinetic). 5. The right ventricle is normal in size and function. 6. Left atrium is severely dilated by volume. 7. There is mild aortic regurgitation. 8. The mitral valve is normal in appearance, with no prolapse, flail leaflet, or tethered motion noted. 9. 2 separate MR jets are present: one directed anteriorly, the other central. The anterior jet hugs the antreior LA wall/interatrial septum and is not seen to wrap around the posterior LA wall. The visual appearance is of moderate mitral regurgitation, however the eccentric nature of the anterior jet may lead to underestimation of MR severity on color jet flow analysis. The peak mitral inflow velocity (0.7 m/sec) makes severe mitral regurgitation less likely. There is no systolic flow reversal present in the pulmonary vein. PISA hemisphere could not be measured. Estimated regurgitant volume by volumetric measurements yields and estimate of 35 cc. 10. Mild tricuspid regurgitation present. 11. Unable to estimate RVSP due to inadequate TR jet spectral doppler profile. CT chest: L basilar opacity, trace bilat pleural effusions decr vs prior. mild bibasilar ATX Assessment/Plan myoclonic jerks: -seen by neuro here. impression is Toxic-Metabolic Encephalopathy (improving) and myoclonic jerks, as well as diabetic Peripheral Neuropathy -no acute CVA -carotid dopplers c/w 90-99% stenosis--dr holguin consulted (pending). - per Dr. Sanchez: PLEASE NOTE THAT PT FOLLOWS WITH DR JOHNSON CLOSELY FOR SERIAL MONITORING OF CAROTIDS, FELT TO BE NON-OBSTRUCTIVE ON LAST OUTPATIENT EVALUATON chronic diastolic HF, functional MR (very bp sensitive during outpatient ANA) - BNP similar to prior values - no congestion on CXR - cont carvedilol, holding ARB for LUIS - was on torsemide 100 mg BID and metolazone until two days [employer] LEAD when Cr rising, held diuretics for two days and took torsemide 50 mg x1 day prior to admission. wt and edema improved signif at that time, no more JVD--felt to be dry despite ongoing cough/wheeze (with normal cxr) and 1+ pretib edema (c/w known prior venous insuff baseline). - hold torsemide as patient likely dry, restart when Cr normalizes - would avoid IVF -3/: Appearing near euvolemic. Agree with holding Torsemide and follow Creat. -3/3: Cough, doubt pulmonary venous congestion, but will get CXR today and BNP to help guide resuming diuresis. Continue to hold Toresemide as Creat continues to decline 2.4 today. -3/: office wt 09/16 was 156 (likely dry vs euvolemic then). wt [address] chest no signif pulm congestion. BUN/Cr at baseline, euvolemic -09/24-10: appears euvolemic, Cr at baseline. 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 -no anginal sx's, no signs acs here. HTN: - h/o labile BPs (worse MR/CHF when bp's uncontrolled, low with orthostatic sx' s at times as well) - ARB held for LUIS recently - was on hydralazine, nitro gtt, clonidine gtt at home as well--not being given here - bp controlled here - cont home carvedilol. will need re-initiation of some of his bp meds later as outpatient, as his bp inevitably will rise (which causes worsening of MR severity) LUIS on CKD: -baseline creat 2-2.2 -bun/creat peaked here at 80s/2.7. likely prerenal given absence of findings suggestive of vol overload/chf -renal fxn improving cardiac walsh stable
[2018-09-29] MEDS ORDERED: PT OWN MED DRAWER 7, Y5N ONE (14:20)
--- NOTE | 2018-09-29 14:49 | DS ---
Physical Examination Vital Signs: Vital Signs Temperature 98.4 F 09/29/18 11:00 Pulse Rate 80 09/29/18 11:00 Respiratory Rate 20 09/29/18 11:00 Blood Pressure 139/71 09/29/18 11:00 O2 Sat by Pulse Oximetry (%) 96 09/28/18 21:00 Cardiovascular: Yes: S1, S2 Respiratory: Yes: Regular, CTA Bilaterally Gastrointestinal: Yes: Normal Bowel Sounds, Soft Labs: CBC, BMP 09/27/18 06:10 09/27/18 06:10 Discharge Summary Reason For Visit: DIFFICULTY BREATHING Current Active Problems CAD (coronary artery disease) (Acute) CHF (congestive heart failure) (Acute) Hypernatremia (Acute) Hypokalemia (Acute) Jerking movements of extremities (Acute) PNA (pneumonia) (Acute) Weakness (Acute) Hospital Course: 83-year-old well with multiple medical problems including CHF with recent diuresis on torsemide presents now with cough but worsening physical decline over the last few days, having difficulty ambulating, decreased by mouth intake leading further dehydration. chest CT shows left lung opacity with PNA on iv abx zosyn to complete tmw morning start mucinex bid was on telemetry floor now on medsurg Pafib coumadin and coreg Condition: Fair - Instructions Referrals: Idris Borges MD [Primary Care Provider] - 1 Week Turner Rosales MD [Staff Physician] - 1 Week - Home Medications Comprehensive Discharge Medication List: Ambulatory Orders Lantus (10mL VIAL) - 8 units SQ HS 11/03/16 Carvedilol [Coreg -] 25 mg PO BID #60 tablet 08/24/18 Clonidine Patch [Catapres Tts Patch -] 0.2 mg TD Q7D@1000 #4 patch.tdwk Polyethylene Glycol 3350 [Miralax 119 gm Btl -] 17 gm PO DAILY #1 bottle Simvastatin [Zocor -] 20 mg PO HS #30 tab 09/11/18 Tamsulosin HCl 0.4 mg PO DAILY #30 tab 09/11/18 Warfarin Na [Coumadin -] 2 mg PO SUMOTUTHFRSA #30 tab 09/11/18 Warfarin Na [Coumadin -] 3 mg PO We@1800 #10 tablet 09/11/18 Tamsulosin HCl [Flomax -] 0.4 mg PO DAILY@829 #30 cap.er.24h MDD 1 09/12/18 Atorvastatin Ca [Lipitor] 20 mg PO HS #30 tablet MDD 1 09/27/18 Torsemide [Demadex -] 50 mg PO BIDLASIX #60 tablet 09/27/18
--- NOTE | 2018-09-29 18:57 | CONSULT ---
Consult Consult Specialty:: endocrine Referred by:: dr.annabi oh Reason for Consultation:: diabetes melltius type 2 - History of Present Illness Chief Complaint: hyperglycemia History of Present Illness: 50-cabp-fdee with pmh dm 2 , CHF ashd,afib,cad,pvd, presents now with cough but worsening physical decline over the last few days, was found to have left lung pneumonia,treated with iv antibiotic,since then he felt better today still coughing,minimal with mild dyspnea, leg swelling no chest pain,fever or chills. he admits sugars are higher than at home. he has difficulty controlling blood sugars at home since he takes lantus and novolog at night. - History Source History Provided By: Patient - Past Medical History Cardio/Vascular: Yes: AFIB, CAD, CHF, HTN, Hyperlipdemia Gastrointestinal: Yes: Cancer (primary liver) Hepatobiliary: Yes: Other (primary liver cancer s/p resection and now recurr in lymph nodes on chemo (nexavar)) Renal/: Yes: Renal Failure Endocrine: Yes: Diabetes Mellitus (insulin dependent) - Past Surgical History Past Surgical History: Yes: CABG (partial liver resection) - Alcohol/Substance Use Hx Alcohol Use: No - Smoking History Smoking history: Never smoked Have you smoked in the past 12 months: No - Social History Usual Living Arrangement: With Spouse (in elevator apartment) ADL: Independent History of Recent Travel: No Home Medications - Allergies Allergies/Adverse Reactions: Allergies Allergy/AdvReac Type Severity Reaction Status Date / Time No Known Drug Allergies Allergy Verified 09/20/18 05:49 - Home Medications Home Medications: Ambulatory Orders Lantus (10mL VIAL) - 8 units SQ HS 11/03/16 Carvedilol [Coreg -] 25 mg PO BID #60 tablet 08/24/18 Clonidine Patch [Catapres Tts Patch -] 0.2 mg TD Q7D@1000 #4 patch.tdwk Polyethylene Glycol 3350 [Miralax 119 gm Btl -] 17 gm PO DAILY #1 bottle Simvastatin [Zocor -] 20 mg PO HS #30 tab 09/11/18 Tamsulosin HCl 0.4 mg PO DAILY #30 tab 09/11/18 Warfarin Na [Coumadin -] 2 mg PO SUMOTUTHFRSA #30 tab 09/11/18 Warfarin Na [Coumadin -] 3 mg PO We@1800 #10 tablet 09/11/18 Tamsulosin HCl [Flomax -] 0.4 mg PO DAILY@0830 #30 cap.er.24h MDD 1 09/12/18 Atorvastatin Ca [Lipitor] 20 mg PO HS #30 tablet MDD 1 09/27/18 Torsemide [Demadex -] 50 mg PO BIDLASIX #60 tablet 09/27/18 Review of Systems - Review of Systems Constitutional: reports: Weakness Eyes: reports: Blurred Vision HENT: reports: No Symptoms Neck: reports: No Symptoms Cardiovascular: reports: Shortness of Breath Respiratory: reports: Exercise Intolerance, SOB on Exertion Gastrointestinal: reports: Bloating, Constipation Genitourinary: reports: No Symptoms Breasts: reports: No Symptoms Reported Musculoskeletal: reports: Muscle Pain, Muscle Cramps, Muscle Weakness Integumentary: reports: Erythema, Pruritis, Rash Endocrine: reports: Unexplained Weight Gain Physical Exam Vital Signs: Vital Signs Temperature 98.3 F 09/29/18 18:00 Pulse Rate 71 09/29/18 18:00 Respiratory Rate 20 09/29/18 18:00 Blood Pressure 142/65 09/29/18 18:00 O2 Sat by Pulse Oximetry (%) 99 09/29/18 09:00 Constitutional: Yes: Anxious Eyes: Yes: EOM Intact, Ptosis HENT: Yes: Normocephalic Neck: Yes: Trachea Midline Cardiovascular: Yes: Tachycardia Respiratory: Yes: Rhonchi, Tachypnea Gastrointestinal: Yes: Normal Bowel Sounds ...Rectal Exam: Yes: Deferred Renal/: Yes: WNL Breast(s): Yes: WNL Extremities: Yes: Delayed Capillary Refill, Erythema Edema: Yes Edema: LLE: 1+, RLE: 2+ Integumentary: Yes: Onychomycosis, Venous Stasis Changes Neurological: Yes: Alert, Oriented Labs: CBC, BMP 09/27/18 06:10 09/27/18 06:10 Problem List - Problems (1) CAD (coronary artery disease) Code(s): I25.10 - ATHSCL HEART DISEASE OF [place] CORONARY ARTERY W/O ANG PCTRS (2) CHF (congestive heart failure) Code(s): I50.9 - HEART FAILURE, UNSPECIFIED (3) Hypernatremia Code(s): E87.0 - HYPEROSMOLALITY AND HYPERNATREMIA (4) Hypokalemia Code(s): E87.6 - HYPOKALEMIA (5) Jerking movements of extremities Code(s): R25.2 - CRAMP AND SPASM (6) PNA (pneumonia) Code(s): J18.9 - PNEUMONIA, UNSPECIFIED ORGANISM Qualifiers: Pneumonia type: due to unspecified organism Laterality: left Lung location: lower lobe of lung Qualified Code(s): J18.1 - Lobar pneumonia, unspecified organism (7) Weakness Code(s): R53.1 - WEAKNESS Assessment/Plan Current Active Problems CAD (coronary artery disease) (Acute) CHF (congestive heart failure) (Acute) Hypernatremia (Acute) Hypokalemia (Acute) Jerking movements of extremities (Acute) PNA (pneumonia) (Acute) Weakness (Acute) dm type 2 ckd,diabetic nephropathy \ Laboratory Results - last 24 hr 09/28/18 09/29/18 09/29/18 21:33 06:24 11:59 POC Glucometer 165 237 229 09/29/18 16:55 POC Glucometer 264 Laboratory Tests 09/11/18 09/27/18 09/27/18 15:20 06:10 12:02 Sodium 137 Potassium 4.0 Chloride 99 Carbon Dioxide 32 Anion Gap 7 L BUN 50 H Creatinine 2.1 H Creat Clearance w eGFR 30.31 POC Glucometer 332 Hemoglobin A1c % 8.7 H 09/28/18 09/28/18 09/28/18 11:43 16:38 21:33 Sodium Potassium Chloride Carbon Dioxide Anion Gap BUN Creatinine Creat Clearance w eGFR POC Glucometer 446 222 165 Hemoglobin A1c % 09/29/18 09/29/18 09/29/18 06:24 11:59 16:55 Sodium Potassium Chloride Carbon Dioxide Anion Gap BUN Creatinine Creat Clearance w eGFR POC Glucometer 237 229 264 Hemoglobin A1c % plan: hold dc for pulmonary consult copd vs chf bgm qid novolog insulin levemir 14 units am levemir 5 unit hs pulmonary therapy
[2018-09-29] MEDS: guaiFENesin 200 MG/10 ML 10 ML UNIT-DOSE CUPS PO PRN (21:39)
[2018-09-29] MEDS: ATORVASTATIN CA 20 MG TABLET (FP) PO SCH (21:39)
[2018-09-30] MEDS: TORSEMIDE 40 MG, TORSEMIDE 10 MG PO SCH ×2 (06:22→14:29)
[2018-09-30] MEDS: INSULIN SLIDING SCALE (NOVOLOG) 1 VIAL SQ SCH ×2 (06:23→12:19)
[2018-09-30] MEDS ORDERED: INSULIN (LEVEMIR) 100 UNITS/ML UNITS SQ ONE (06:50)
[2018-09-30] MEDS ORDERED: INSULIN (NOVOLOG) ASPART 100 UNITS/ML 10ML VIAL ONE ×2 (06:50→12:09)
[2018-09-30] MEDS ORDERED: INSULIN (LEVEMIR) 100 UNITS/ML UNITS SQ SCH (07:00)
[2018-09-30] MEDS: ALBUTEROL SO4 2.5/IPRATROPIUM 0.5 INH SOL 3 ML VIAL.NEB. NEB SCH ×3 (07:15→15:25)
[2018-09-30] MEDS ORDERED: PT OWN MED DRAWER 7, Y5N ONE (09:18)
[2018-09-30] MEDS: TAMSULOSIN HCL 0.4 MG CAP PO SCH (09:27)
[2018-09-30] MEDS: guaiFENesin 600 MG TABLET.ER (FP) PO SCH (09:27)
[2018-09-30] MEDS: CARVEDILOL 25 MG TABLET (FP) PO SCH (09:27)
[2018-09-30] MEDS: POLYETHYLENE GLYCOL 3350 119 GM BTL PO SCH (09:28)
--- NOTE | 2018-09-30 10:19 | PN ---
Progress Note (short form) - Note Progress Note: Renal follow up for LUIS on CKD Pt seen and examined at the bedside continues to have cough no cp, sob, abd pain, fever, chills, N/V Vital Signs Temperature 97.5 F L 09/30/18 09:26 Pulse Rate 83 09/30/18 09:26 Respiratory Rate 18 09/30/18 09:26 Blood Pressure 136/50 L 09/30/18 09:26 O2 Sat by Pulse Oximetry (%) 97 09/29/18 21:00 NAD edema improved in LE CBC, BMP 09/27/18 06:10 09/27/18 06:10 Current Medications Acetaminophen (Tylenol -) 650 mg PO Q4H PRN PRN Reason: PAIN Albuterol/Ipratropium (Duoneb -) 1 amp NEB RQID [facility] Last Admin: 09/30/18 07:15 Dose: 1 amp Atorvastatin Calcium (Lipitor -) 20 mg PO HS [facility] Last Admin: 09/29/18 21:39 Dose: 20 mg Benzocaine/Menthol (Cepacol Lozenge -) 1 each MM PRN PRN PRN Reason: SORE THROAT Last Admin: 09/22/18 21:37 Dose: 1 each Carvedilol (Coreg -) 25 mg PO BID [facility] Last Admin: 09/30/18 09:27 Dose: 25 mg Guaifenesin (Robitussin -) 10 ml PO Q4H PRN PRN Reason: COUGH Last Admin: 09/29/18 21:39 Dose: 10 ml Guaifenesin (Mucinex -) 600 mg PO BID [facility] Last Admin: 09/30/18 09:27 Dose: 600 mg Insulin Aspart (Novolog Vial Sliding Scale -) 1 vial SQ ACHS [facility]; Protocol Last Admin: 09/30/18 06:23 Dose: 4 units Insulin Detemir (Levemir Vial) 14 units SQ AM [facility] Last Admin: 09/30/18 06:20 Dose: 14 units Phenol/Menthol (Chloraseptic -) 1 spray MM Q6H PRN PRN Reason: SORE THROAT Polyethylene Glycol (Miralax (For Daily Use) -) 17 gm PO DAILY [facility] Last Admin: 09/30/18 09:28 Dose: Not Given Tamsulosin HCl (Flomax -) 0.4 mg PO DAILY@0830 [facility] Last Admin: 09/30/18 09:27 Dose: 0.4 mg Torsemide 40 mg/ Torsemide 10 (mg) 50 mg PO BIDLASIX [facility] Last Admin: 09/30/18 06:22 Dose: 50 mg 83 y/o male with Chr Afib on Coumadin, CAD, CKD stage 3 admitted w/ cough, sob, tremors, weakness with Cr of 2.7 (baseline Cr ~2) #LUIS on CKD in setting of high dose diuretics and intravascular volume depletion #Hx of HF #Suspected PNA #Anemia #BPH Renal function stable as of 09/27, no new labs today continue oral torsemide check BMP today Pulmonary consult pending Thank you Ramy Contreras DO
--- NOTE | 2018-09-30 10:46 | PN ---
Progress Note, Physician Chief Complaint: sob History of Present Illness: sob much better. still coughing often. still ankle swelling. no cp, palpit - Current Medication List Current Medications: Active Medications Acetaminophen (Tylenol -) 650 mg PO Q4H PRN PRN Reason: PAIN Albuterol/Ipratropium (Duoneb -) 1 amp NEB RQID [facility] Last Admin: 09/30/18 07:15 Dose: 1 amp Atorvastatin Calcium (Lipitor -) 20 mg PO HS [facility] Last Admin: 09/29/18 21:39 Dose: 20 mg Benzocaine/Menthol (Cepacol Lozenge -) 1 each MM PRN PRN PRN Reason: SORE THROAT Last Admin: 09/22/18 21:37 Dose: 1 each Carvedilol (Coreg -) 25 mg PO BID [facility] Last Admin: 09/30/18 09:27 Dose: 25 mg Guaifenesin (Robitussin -) 10 ml PO Q4H PRN PRN Reason: COUGH Last Admin: 09/29/18 21:39 Dose: 10 ml Guaifenesin (Mucinex -) 600 mg PO BID [facility] Last Admin: 09/30/18 09:27 Dose: 600 mg Insulin Aspart (Novolog Vial Sliding Scale -) 1 vial SQ ACHS [facility]; Protocol Last Admin: 09/30/18 06:23 Dose: 4 units Insulin Detemir (Levemir Vial) 14 units SQ AM [facility] Last Admin: 09/30/18 06:20 Dose: 14 units Phenol/Menthol (Chloraseptic -) 1 spray MM Q6H PRN PRN Reason: SORE THROAT Polyethylene Glycol (Miralax (For Daily Use) -) 17 gm PO DAILY [facility] Last Admin: 09/30/18 09:28 Dose: Not Given Tamsulosin HCl (Flomax -) 0.4 mg PO DAILY@0830 [facility] Last Admin: 09/30/18 09:27 Dose: 0.4 mg Torsemide 40 mg/ Torsemide 10 (mg) 50 mg PO BIDLASIX [facility] Last Admin: 09/30/18 06:22 Dose: 50 mg - Objective Vital Signs: Vital Signs Temperature 97.5 F L 09/30/18 09:26 Pulse Rate 83 09/30/18 09:26 Respiratory Rate 18 09/30/18 09:26 Blood Pressure 136/50 L 09/30/18 09:26 O2 Sat by Pulse Oximetry (%) 97 09/29/18 21:00 Constitutional: Yes: Well Nourished, No Distress, Calm Cardiovascular: Yes: Pulse Irregular, Murmur (soft MR murmur at apex), S1, S2. No: Gallop Respiratory: Yes: Regular, CTA Bilaterally. No: Accessory Muscle Use, Rales, Wheezes Extremities: No: Cold Edema: Yes (2-3+ ankles) Neurological: Yes: Alert, Oriented Psychiatric: No: Agitated Labs: CBC, BMP 09/27/18 06:10 09/27/18 06:10 INR, PTT INR 2.64 (0.83-1.09) H 09/28/18 06:15 Assessment/Plan cxr: no congestion MIBI 07/05 (pers): no STs; small area apical isch and basal inferolateral wall; mild global LV hypo, EF 46% mibi 08/2018: lvef 66, no ischemia ecg: afib, rate ok, no ischemic changes Echo 07/2018: nl lv/rv, lae, mild mr/tr/ar, nl rvsp Echo 10/07: 1. The left ventricular size is normal. 2. Overall left ventricular systolic function is normal with, an EF between 60 - 65 %. 3. LA pressure is uncertain. 4. No regional wall motion abnormalities were noted (basal inferolateral wall may be mildly hypokinetic). 5. The right ventricle is normal in size and function. 6. Left atrium is severely dilated by volume. 7. There is mild aortic regurgitation. 8. The mitral valve is normal in appearance, with no prolapse, flail leaflet, or tethered motion noted. 9. 2 separate MR jets are present: one directed anteriorly, the other central. The anterior jet hugs the antreior LA wall/interatrial septum and is not seen to wrap around the posterior LA wall. The visual appearance is of moderate mitral regurgitation, however the eccentric nature of the anterior jet may lead to underestimation of MR severity on color jet flow analysis. The peak mitral inflow velocity (0.7 m/sec) makes severe mitral regurgitation less likely. There is no systolic flow reversal present in the pulmonary vein. PISA hemisphere could not be measured. Estimated regurgitant volume by volumetric measurements yields and estimate of 35 cc. 10. Mild tricuspid regurgitation present. 11. Unable to estimate RVSP due to inadequate TR jet spectral doppler profile. CT chest: L basilar opacity, trace bilat pleural effusions decr vs prior. mild bibasilar ATX Assessment/Plan PNA: -cough and wheezing at home, CT here with pneumonic infiltrated, s/p abx myoclonic jerks: -seen by neuro here. 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 wt and edema improved signif at that time, no more JVD--felt to be dry despite ongoing cough/wheeze (with normal cxr) and 1+ pretib edema (c/w known prior venous insuff baseline). - hold torsemide as patient likely dry, restart when Cr normalizes - would avoid IVF -3/: Appearing near euvolemic. Agree with holding Torsemide and follow Creat. -3/3: Cough, doubt pulmonary venous congestion, but will get CXR today and BNP to help guide resuming diuresis. Continue to hold Toresemide as Creat continues to decline 2.4 today. -3/: office wt 09/16 was 156 (likely dry vs euvolemic then). wt [address] chest no signif pulm congestion. BUN/Cr at baseline, euvolemic -09/24-11: appears euvolemic, Cr at baseline. residual ankle swelling likely venous ins'y (known hx of this). continue torsemide 50 mg BID -plan to reassess MR severity as outpatient once pt well diuresed and in sinus rhythm AFib: - remote paroxysmal AF, then persistent AF for past 2-3 mo - Rate controlled on coreg, continue same rx - restarted coumadin 2 mg daily - at home takes 2 mg 5 days a week and 3 mg two days a week, monitor INR - Considering elective DCCV once acute issues resolve CAD, S/P CABG '05: GAN TO LAD, SVG SEQUENTIAL TO DIAG-->OM; SVG TO RPDA: -cont home statin, (not on ASA, given pt on warfarin) -recent mibi in office 09/10 no ischemia, nl LVEF. -no anginal sx's, no signs acs here. HTN: - h/o labile BPs (worse MR/CHF when bp's uncontrolled, low with orthostatic sx' s at times as well) - ARB held for LUIS recently - was on hydralazine, nitro gtt, clonidine gtt at home as well--not being given here - bp controlled here - cont home carvedilol. will need re-initiation of some of his bp meds later as outpatient, as his bp inevitably will rise (which causes worsening of MR severity) LUIS on CKD: -baseline creat 2-2.2 -bun/creat peaked here at 80s/2.7. likely prerenal given absence of findings suggestive of vol overload/chf-->improved with torsemide holiday. -back on torsemide lower dose, renal fxn stable OK FOR DISCHARGE FROM CV P.O.V.--TO F/U WITH ME IN 2 WKS
[2018-09-30 11:36] LABS: ANION GAP 6 MMOL/L (8-16); BLOOD UREA NITROGEN 55 mg/dL (7-18); CALCIUM 8.4 mg/dL (8.5-10.1); CHLORIDE 95 mmol/L (98-107); CO2 33 mmol/L (21-32); CREATININE 2.2 mg/dL (0.55-1.3); POTASSIUM 4.6 mmol/L (3.5-5.1); SODIUM 133 mmol/L (136-145)
[2018-09-30] MEDS: WARFARIN NA 2 MG TABLET (UD) PO SCH (11:57)
[2018-09-30 11:59] LABS: GLUCOSE,RANDOM 369 mg/dL (74-106)
--- NOTE | 2018-09-30 12:32 | CON.PULM ---
Consult Consult Specialty:: PULMONARY Referred by:: Dr Goodson Reason for Consultation:: cough - History of Present Illness Chief Complaint: shortness of breath History of Present Illness: 83yo male with h/o CAD, atrial fibrillation, LV diastolic dysfunction, mitral regurgitation, CKD who was admitted with cough and shortness of breath. Found to have a left basilar infiltrate, started on antibiotics for presumed pneumonia now completed antibiotic course. Was to be discharged yesterday but held for persistent cough. No further shortness of breath. +cough is dry, nonproductive. No further subjective fevers or chills. He is a never smoker, denies history of asthma or COPD. Does report occasional wheezing especially with exertion. - History Source History Provided By: Patient, Family Member, Medical Record Limitations to Obtaining History: No Limitations - Past Medical History Cardio/Vascular: Yes: AFIB, CAD, CHF, HTN, Hyperlipdemia Gastrointestinal: Yes: Cancer (primary liver) Hepatobiliary: Yes: Other (primary liver cancer s/p resection and now recurr in lymph nodes on chemo (nexavar)) Renal/: Yes: Renal Failure Endocrine: Yes: Diabetes Mellitus (insulin dependent) - Past Surgical History Past Surgical History: Yes: CABG (partial liver resection) - Alcohol/Substance Use Hx Alcohol Use: No - Smoking History Smoking history: Never smoked Have you smoked in the past 12 months: No - Social History Usual Living Arrangement: With Spouse (in elevator apartment) ADL: Independent History of Recent Travel: No Home Medications - Allergies Allergies/Adverse Reactions: Allergies Allergy/AdvReac Type Severity Reaction Status Date / Time No Known Drug Allergies Allergy Verified 09/20/18 05:49 - Home Medications Home Medications: Ambulatory Orders Lantus (10mL VIAL) - 8 units SQ HS 11/03/16 Carvedilol [Coreg -] 25 mg PO BID #60 tablet 08/24/18 Clonidine Patch [Catapres Tts Patch -] 0.2 mg TD Q7D@1000 #4 patch.tdwk Polyethylene Glycol 3350 [Miralax 119 gm Btl -] 17 gm PO DAILY #1 bottle Simvastatin [Zocor -] 20 mg PO HS #30 tab 09/11/18 Tamsulosin HCl 0.4 mg PO DAILY #30 tab 09/11/18 Warfarin Na [Coumadin -] 2 mg PO SUMOTUTHFRSA #30 tab 09/11/18 Warfarin Na [Coumadin -] 3 mg PO We@1800 #10 tablet 09/11/18 Tamsulosin HCl [Flomax -] 0.4 mg PO DAILY@0830 #30 cap.er.24h MDD 1 09/12/18 Atorvastatin Ca [Lipitor] 20 mg PO HS #30 tablet MDD 1 09/27/18 Torsemide [Demadex -] 50 mg PO BIDLASIX #60 tablet 09/27/18 Review of Systems - Review of Systems Constitutional: reports: Weakness. denies: Chills, Fever Eyes: denies: Recent Change in Vision HENT: denies: Nasal Congestion, Throat Pain Neck: denies: Stiffness, Tenderness Cardiovascular: reports: Edema. denies: Chest Pain, Shortness of Breath Respiratory: reports: Cough, Wheezing. denies: Hemoptysis Gastrointestinal: denies: Abdominal Pain, Nausea, Vomiting Genitourinary: denies: Dysuria, Hematuria Neurological: denies: Dizziness, Headache Endocrine: denies: Unexplained Weight Loss Physical Exam Vital Sings: Vital Signs Temperature 97.5 F L 09/30/18 09:26 Pulse Rate 83 09/30/18 09:26 Respiratory Rate 18 09/30/18 09:26 Blood Pressure 136/50 L 09/30/18 09:26 O2 Sat by Pulse Oximetry (%) 97 09/29/18 21:00 Constitutional: Yes: Calm Eyes: Yes: Conjunctiva Clear, EOM Intact HENT: Yes: Atraumatic, Normocephalic Neck: Yes: Supple, Trachea Midline Cardiovascular: Yes: Pulse Irregular Respiratory: Yes: Diminished (decreased breath sounds at the bases) ...Clubbing: No Gastrointestinal: Yes: Normal Bowel Sounds, Soft. No: Tenderness Edema: Yes Labs: CBC, BMP 09/27/18 06:10 09/30/18 10:40 Imaging - Results Cat Scan: Report Reviewed, Image Reviewed (left basilar infiltrate) Problem List - Problems (1) PNA (pneumonia) Code(s): J18.9 - PNEUMONIA, UNSPECIFIED ORGANISM Qualifiers: Pneumonia type: due to unspecified organism Laterality: left Lung location: lower lobe of lung Qualified Code(s): J18.1 - Lobar pneumonia, unspecified organism (2) CAD (coronary artery disease) Code(s): I25.10 - ATHSCL HEART DISEASE OF [place] CORONARY ARTERY W/O ANG PCTRS (3) CHF (congestive heart failure) Code(s): I50.9 - HEART FAILURE, UNSPECIFIED (4) Afib Code(s): I48.91 - UNSPECIFIED ATRIAL FIBRILLATION Qualifiers: Atrial fibrillation type: paroxysmal Qualified Code(s): I48.0 - Paroxysmal atrial fibrillation (5) Diabetes Code(s): E11.9 - TYPE 2 DIABETES MELLITUS WITHOUT COMPLICATIONS Qualifiers: Diabetes mellitus type: type 2 Assessment/Plan Pneumonia treated Atrial Fibrillation LV Diastolic Dysfunction Mitral Regurgitation CAD s/p CABG Acute on Chronic Renal Failure HTN - completed antibiotics - rate controlled - continue anticoagulation - will order incentive spirometry - was on Symbicort recently, will resume for now - will need outpt PFTs and follow up chest imaging to ensure resolution of infiltrate - no pulmonary contraindications for discharge Thank you for this consult Zach Baker MD
[2018-09-30] MEDS ORDERED: BUDESONIDE/FORMETEROL FUMARATE 160/4.5 mcg INHALER IH SCH (13:00)
--- NOTE | 2018-09-30 14:04 | PN ---
Progress Note, Physician Chief Complaint: patient seen and examined no distress - Current Medication List Current Medications: Active Medications Acetaminophen (Tylenol -) 650 mg PO Q4H PRN PRN Reason: PAIN Albuterol/Ipratropium (Duoneb -) 1 amp NEB RQID [facility] Last Admin: 09/30/18 11:49 Dose: 1 amp Atorvastatin Calcium (Lipitor -) 20 mg PO HS [facility] Last Admin: 09/29/18 21:39 Dose: 20 mg Benzocaine/Menthol (Cepacol Lozenge -) 1 each MM PRN PRN PRN Reason: SORE THROAT Last Admin: 09/22/18 21:37 Dose: 1 each Budesonide/Formoterol Fumarate (Symbicort 160/4.5mcg -) 2 puff IH BID [facility] Last Admin: 09/30/18 13:42 Dose: 2 puff Carvedilol (Coreg -) 25 mg PO BID [facility] Last Admin: 09/30/18 09:27 Dose: 25 mg Guaifenesin (Robitussin -) 10 ml PO Q4H PRN PRN Reason: COUGH Last Admin: 09/29/18 21:39 Dose: 10 ml Guaifenesin (Mucinex -) 600 mg PO BID [facility] Last Admin: 09/30/18 09:27 Dose: 600 mg Insulin Aspart (Novolog Vial Sliding Scale -) 1 vial SQ ACHS [facility]; Protocol Last Admin: 09/30/18 12:19 Dose: 8 units Insulin Detemir (Levemir Vial) 14 units SQ AM [facility] Last Admin: 09/30/18 06:20 Dose: 14 units Phenol/Menthol (Chloraseptic -) 1 spray MM Q6H PRN PRN Reason: SORE THROAT Polyethylene Glycol (Miralax (For Daily Use) -) 17 gm PO DAILY [facility] Last Admin: 09/30/18 09:28 Dose: Not Given Tamsulosin HCl (Flomax -) 0.4 mg PO DAILY@0830 [facility] Last Admin: 09/30/18 09:27 Dose: 0.4 mg Torsemide 40 mg/ Torsemide 10 (mg) 50 mg PO BIDLASIX [facility] Last Admin: 09/30/18 06:22 Dose: 50 mg - Objective Vital Signs: Vital Signs Temperature 97.5 F L 09/30/18 09:26 Pulse Rate 83 09/30/18 09:26 Respiratory Rate 18 09/30/18 09:26 Blood Pressure 136/50 L 09/30/18 09:26 O2 Sat by Pulse Oximetry (%) 97 09/29/18 21:00 Constitutional: Yes: Calm Cardiovascular: Yes: Regular Rate and Rhythm, S1, S2 Respiratory: Yes: CTA Bilaterally Gastrointestinal: Yes: Normal Bowel Sounds, Soft Edema: Yes Neurological: Yes: Alert, Oriented Labs: CBC, BMP 09/27/18 06:10 09/30/18 10:40 INR, PTT INR 2.64 (0.83-1.09) H 09/28/18 06:15 Problem List - Problems (1) PNA (pneumonia) Assessment/Plan: zosyn course completed paola Code(s): J18.9 - PNEUMONIA, UNSPECIFIED ORGANISM Qualifiers: Pneumonia type: due to unspecified organism Laterality: left Lung location: lower lobe of lung Qualified Code(s): J18.1 - Lobar pneumonia, unspecified organism (2) CHF (congestive heart failure) Assessment/Plan: torsemide bid Code(s): I50.9 - HEART FAILURE, UNSPECIFIED (3) Afib Assessment/Plan: couamdin inr therapuetic coreg Code(s): I48.91 - UNSPECIFIED ATRIAL FIBRILLATION Qualifiers: Atrial fibrillation type: paroxysmal Qualified Code(s): I48.0 - Paroxysmal atrial fibrillation (4) BPH (benign prostatic hyperplasia) Assessment/Plan: flomax Code(s): N40.0 - BENIGN PROSTATIC HYPERPLASIA WITHOUT LOWER URINRY TRACT SYMP (5) CAD (coronary artery disease) Assessment/Plan: on statin no aspirin as in on coumadin Code(s): I25.10 - ATHSCL HEART DISEASE OF [place] CORONARY ARTERY W/O ANG PCTRS
[2018-09-30 16:31] VITALS: BP 140/78; PULSE 86; TEMP 98.7
== END 2018-09-30 16:39 | disposition home health service (06) | DRG 682 ==
LOC: JER 05:39 → J4W 07:15 → J5S 09-23 16:41
PROVIDERS: ADMIT Family Medicine; ATTEND Family Medicine
DX: N17.9 Acute kidney failure, unspecified (principal); J18.1 Lobar pneumonia, unspecified organism; G93.41 Metabolic encephalopathy; I50.22 Chronic systolic (congestive) heart failure; E87.1 Hypo-osmolality and hyponatremia; C22.9 Malignant neoplasm of liver, not specified as primary or secondary; I48.1 Persistent atrial fibrillation; I13.0 Hypertensive heart and chronic kidney disease with heart failure and stage 1 through stage 4 chronic kidney disease, or unspecified chronic kidney disease; R79.89 Other specified abnormal findings of blood chemistry; G25.3 Myoclonus; T50.2X5A Adverse effect of carbonic-anhydrase inhibitors, benzothiadiazides and other diuretics, initial encounter; N40.0 Benign prostatic hyperplasia without lower urinary tract symptoms; I25.10 Atherosclerotic heart disease of native coronary artery without angina pectoris; I34.0 Nonrheumatic mitral (valve) insufficiency; Z95.1 Presence of aortocoronary bypass graft; D64.9 Anemia, unspecified; E87.6 Hypokalemia; E11.21 Type 2 diabetes mellitus with diabetic nephropathy; N18.3 Chronic kidney disease, stage 3 (moderate); E11.42 Type 2 diabetes mellitus with diabetic polyneuropathy
CPT/HCPCS: 36415; 70450-TC; 71045-TC-FY; 71046-TC-FY; 71250-TC; 80048; 80053; 81003; 81015; 82140; 82550; 82607; 82728; 82962; 83540; 83550; 83735; 83880; 84100; 84443; 84484; 85025; 85610; 85730; 86593; 87081; 87804; 87899; 93005; 93010; 93880-TC; 94640; 97116-GP; 97161-GP; 99285-25; J0131

== ENCOUNTER 2019-02-24 16:39 | Observation (INO) | payer OTHER ==
[2019-02-24 16:46] VITALS: BMI 26.6
--- NOTE | 2019-02-24 17:33 | PDOC ---
History of Present Illness - General Chief Complaint: Syncope/Near Syncope Stated Complaint: PASS OUT Time Seen by Provider: 02/24/19 17:31 Past History - Past Medical History Allergies/Adverse Reactions: Allergies Allergy/AdvReac Type Severity Reaction Status Date / Time No Known Drug Allergies Allergy Verified 02/24/19 16:46 Home Medications: Ambulatory Orders Polyethylene Glycol 3350 [Miralax 119 gm Btl -] 17 gm PO DAILY #1 bottle Apixaban [Eliquis] 2.5 mg PO BID 02/24/19 Atorvastatin Ca [Lipitor] 10 mg PO HS MDD 1 02/24/19 Carvedilol [Coreg -] 25 mg PO BID 02/24/19 Furosemide [Lasix] 40 mg PO DAILY 02/24/19 Tamsulosin HCl 0.4 mg PO DAILY 02/24/19 Valsartan 40 mg PO DAILY 02/24/19 Furosemide [Lasix -] 40 mg PO DAILY tablet 02/25/19 Anemia: No Asthma: No Cancer: Yes (LIVER, ABDOMEN Chemo Rx) Cardiac Disorders: Yes (CAD; CAGG x 4; A-FIB) CVA: No COPD: No CHF: Yes Dementia: No Diabetes: Yes (IDDM) GI Disorders: No Disorders: (urinary retention) HTN: Yes Hypercholesterolemia: Yes Liver Disease: Yes (LIVER CA) Seizures: No Thyroid Disease: No Other medical history: BLOOD PRESSURE PROBLEM - Surgical History Abdominal Surgery: Yes (Liver resection) Appendectomy: No Cardiac Surgery: Yes (CABG) Cholecystectomy: Yes Lung Surgery: No Neurologic Surgery: No Orthopedic Surgery: No - Suicide/Smoking/Psychosocial Hx Smoking History: Never smoked Have you smoked in the past 12 months: No Information on smoking cessation initiated: No Hx Alcohol Use: No Drug/Substance Use Hx: No Substance Use Type: None Hx Substance Use Treatment: No *Physical Exam - Vital Signs Last Vital Signs Temp Pulse Resp BP Pulse Ox 98.1 F 53 L 19 103/37 L 99 02/24/19 16:41 02/24/19 16:41 02/24/19 16:41 02/24/19 16:41 02/24/19 16:41 ED Treatment Course - LABORATORY CBC & Chemistry Diagram: 02/25/19 06:40 02/25/19 06:40 Medical Decision Making - Medical Decision Making 02/24/19 17:43 83 year old man with a history of Afib, CAD, CHF, HTN, HLD, renal insuff, insulin dependent DM, CABG who presents with episode of loss of consciousness that occurred just prior to arrival that occurred when standing from sitting in the car. The patient's reports that he lost consciousness for approx 2min but denies any convulsions, urinating on self, or head trauma. When the patient regained consciousness he was slightly confused for 10seconds but came too, he had an abrasion to the L forearm that was wrapped and the patient went to lunch. After lunch the patient was feeling shaky on his feet when trying to stand and his became concerned and called Dr. Sanchez who recommended he come to the ED. The patient denies any chest pain, shortness of breath, nausea, diaphoresis, vomiting, abdominal pain, dysuria or diarrhea. At bedside he has no other complaints. The patient has presyncopal episodes that occur 2-3 times a week that occur in the setting of standing from a sitting position. He has a history of labile blood pressures. ROS GENERAL/CONSTITUTIONAL: No fever or chills. No weakness. HEAD, EYES, EARS, NOSE AND THROAT: No change in vision. No ear pain or discharge. No sore throat. CARDIOVASCULAR: No chest pain or shortness of breath RESPIRATORY: No cough, wheezing, or hemoptysis. GASTROINTESTINAL: No nausea, vomiting, diarrhea or constipation. GENITOURINARY: No dysuria, frequency, or change in urination. MUSCULOSKELETAL: No joint or muscle swelling or pain. No neck or back pain. SKIN: No rash NEUROLOGIC: No headache, vertigo or change in strength/sensation. PE GENERAL: Awake, alert, and fully oriented, in no acute distress HEAD: No signs of trauma, normocephalic, atraumatic EYES: PERRLA, EOMI, sclera anicteric, conjunctiva clear ENT: Auricles normal inspection, hearing grossly normal, nares patent, oropharynx clear without exudates. Moist mucosa NECK: Normal ROM, supple, no lymphadenopathy, JVD, or masses LUNGS: No distress, speaks full sentences, clear to auscultation bilaterally HEART: iregular rate and rhythm, normal S1 and S2, peripheral pulses normal and equal bilaterally. ABDOMEN: Soft, nontender, normoactive bowel sounds. No guarding, no rebound. No masses EXTREMITIES : Normal inspection, Normal range of motion, no edema. No clubbing or cyanosis. NEUROLOGICAL: Cranial nerves II through XII grossly intact. Normal speech, normal gait, no focal sensorimotor deficits SKIN: Warm, Dry, normal turgor, L forearm skin tear/abrasion MDM 83 year old man with a history of Afib, CAD, CHF, HTN, HLD, renal insuff, insulin dependent DM, CABG who presents with episode of loss of consciousness that occurred just prior to arrival that occurred when standing from sitting in the car. DDX including but not limited to: acs vs W/U: - cbc, cmp, trop, bnp, ekg, cxr TX: - gentle ivf ED Course: Case discussed with [place] Dr. Sanchez who notes that the patient had a cardiac MRI several days ago which showed mild to moderate mitral regurg. The patient has known advanced diastolic heart failure. In regards to hypotension Dr. Sanchez agrees to gentle fluids to max of 1 liter. Will call with lab results. Dr. Sanchez recommends tele obs admission. Labs significant for: trop 0.09 (close to pt baseline) BUN/Cr: 36.1 / 2 BNP: 3153 EKG: afib rhythm HR 58, no interval abnormalities, narrow QRS, ST and T wave segments and morphology normal. Plan for admission Case discussed with admitting team. Shawna Trujillo, PGY2 Emergency Medicine *DC/Admit/Observation/Transfer Diagnosis at time of Disposition: Syncope - Discharge Dispostion Condition at time of disposition: Stable - Referrals - Patient Instructions - Post Discharge Activity
--- NOTE | 2019-02-24 17:52 | PDOC ---
Documentation entered by Crescencio Keyes SCRIBE, acting as scribe for Verna Sanabria MD. Verna Sanabria MD: This documentation has been prepared by the villae, Crescencio Keyes SCRIBE, under my direction and personally reviewed by me in its entirety. I confirm that the documentation accurately reflects all work, treatment, procedures, and medical decision making performed by me. Attending Attestation - Resident Resident Name: Shawna Trujillo - ED Attending Attestation I have performed the following: I have examined & evaluated the patient, The case was reviewed & discussed with the resident, I agree w/resident's findings & plan - HPI HPI: 02/24/19 18:04 83-year-old male had a syncopal episode today, but his caught him and he did not hit his head. He did see them on the ground. He has a long-standing history of near syncopal episodes and is followed by Dr. Sanchez past medical history significant for chronic diastolic heart failure, A. fib, Coumadin, coronary artery disease, status post CABG in 2004 hypertension, history of labile blood pressures, chronic kidney disease Patient does have a history of labile blood pressures Today systolic blood pressure in the 90s and the pulse is in the 60s today - Physicial Exam PE: 02/24/19 18:10 GENERAL: Awake, alert, and fully oriented, in no acute distress HEAD: No signs of trauma EYES: PERRLA, EOMI, sclera anicteric, conjunctiva clear ENT: Auricles normal inspection, hearing grossly normal, nares patent, oropharynx clear without exudates. Moist mucosa NECK: + bruits,supple LUNGS: Breath sounds equal, clear to auscultation bilaterally. No wheezes, and no crackles HEART: +Murmur. normal S1 and S2, rubs or gallops ABDOMEN: Soft, nontender, normoactive bowel sounds. No guarding, no rebound. No masses EXTREMITIES: +Chronic Venous stasis. +Bilateral Edema. Normal range of motion, No clubbing or cyanosis. No cords, erythema, or tenderness NEUROLOGICAL: Cranial nerves II through XII grossly intact. Normal speech, normal gait SKIN: Avulsive skin tear on left forearm 02/24/19 18:16 - Medical Decision Making 02/24/19 17:46 he had an episode episode of syncope getting out of the car but his caught him and then proceeded to lunch but after lunch he was very shaky and could not bear weight. He feels back to baseline now ROS no chest pain,shortness of breath,nausea,vomiting,abd pain ,fever,chills or cough 02/24/19 18:18 noted to be hypotensive with systolic in the mid 90sand typically his SBP was in the 140's -in reviewing his old records his carotid duplex shows extensive stenosis of 90- 99% and he has a long h/o near syncopal episodes 02/24/19 18:[address] Borges in his [facility], who wants this pt admitted to telemetry OBS 02/24/19 18:59
[2019-02-24 18:32] LABS: BASO % 1.3 % (0-2.0); EOS % 5.7 % (0-4.5); HEMATOCRIT 29.3 % (35.4-49); HEMOGLOBIN 9.9 GM/dL (11.7-16.9); LYMPH % 30.9 % (8-40); MCHC 33.8 g/dl (32.0-35.9); MEAN CELL VOLUME 88.7 fl (80-96); MEAN PLT VOLUME 9.6 fl (7.5-11.1); NEUT % 49.1 % (42.8-82.8); PLATELET COUNT 126 K/MM3 (134-434); RDW 15.3 % (11.9-15.9); WHITE BLOOD COUNT 5.3 K/mm3 (4.0-10.0)
[2019-02-24 18:47] LABS: INR 1.57 (0.83-1.09); PROTHROMBIN TIME (PATIENT) 18.6 SEC (9.7-13.0)
[2019-02-24 18:49] LABS: ALBUMIN 3.1 g/dl (3.4-5.0); BILIRUBIN,TOTAL 0.7 mg/dL (0.2-1); BLOOD UREA NITROGEN 36.1 mg/dL (7-18); CALCIUM 8.4 mg/dL (8.5-10.1); POTASSIUM 4.6 mmol/L (3.5-5.1); TOT PROT 6.2 g/dl (6.4-8.2)
[2019-02-24 18:50] LABS: ACTIVATED PTT 47.9 SECONDS (25.2-36.5)
--- NOTE | 2019-02-25 05:56 | HP ---
Admitting History and Physical - Admission Chief Complaint: Syncope History of Present Illness: This is a 83 year old man with a history of Afib, CAD, CHF, HTN, HLD, renal insuff, insulin dependent DM, CABG. Who presents to the ED with episode of loss of consciousness that occurred just prior to arrival that occurred when standing from sitting in the car. The patient's reports that he lost consciousness for approx 2min but denies any convulsions, urinating on self, or head trauma. When the patient regained consciousness he was slightly confused for 10seconds but came too, he had an abrasion to the L forearm that was wrapped and the patient went to lunch. After lunch the patient was feeling shaky on his feet when trying to stand and his became concerned and called Dr. Sanchez who recommended he come to the ED. The patient denies any chest pain, shortness of breath, nausea, diaphoresis, vomiting, abdominal pain, dysuria or diarrhea. At bedside he has no other complaints. The patient has presyncopal episodes that occur 2-3 times a week that occur in the setting of standing from a sitting position. He has a history of labile blood pressures. History Source: Patient, Family Member Limitations to Obtaining History: No Limitations - Past Medical History Cardiovascular: Yes: AFIB, CAD, CHF, HTN, Hyperlipdemia Gastrointestinal: Yes: Cancer (primary liver) Hepatobiliary: Yes: Other (primary liver cancer s/p resection and now recurr in lymph nodes on chemo (nexavar)) Renal/: Yes: Renal Failure Endocrine: Yes: Diabetes Mellitus (insulin dependent) - Past Surgical History Past Surgical History: Yes: CABG (partial liver resection) - Smoking History Smoking history: Never smoked Have you smoked in the past 12 months: No - Alcohol/Substance Use Hx Alcohol Use: No History of Substance Use: reports: None - Social History ADL: Independent History of Recent Travel: No Home Medications - Allergies Allergies/Adverse Reactions: Allergies Allergy/AdvReac Type Severity Reaction Status Date / Time No Known Drug Allergies Allergy Verified 02/24/19 16:46 - Home Medications Home Medications: Ambulatory Orders Polyethylene Glycol 3350 [Miralax 119 gm Btl -] 17 gm PO DAILY #1 bottle Apixaban [Eliquis] 2.5 mg PO BID 02/24/19 Atorvastatin Ca [Lipitor] 10 mg PO HS MDD 1 02/24/19 Carvedilol [Coreg -] 25 mg PO BID 02/24/19 Furosemide [Lasix] 40 mg PO DAILY 02/24/19 Tamsulosin HCl 0.4 mg PO DAILY 02/24/19 Valsartan 40 mg PO DAILY 02/24/19 Family Disease History - Family Disease History Family History: Unable to Obtain Review of Systems - Review of Systems Constitutional: reports: No Symptoms Eyes: reports: No Symptoms HENT: reports: No Symptoms Neck: reports: No Symptoms Cardiovascular: reports: No Symptoms Respiratory: reports: No Symptoms Gastrointestinal: reports: No Symptoms Genitourinary: reports: No Symptoms Breasts: reports: No Symptoms Reported Musculoskeletal: reports: No Symptoms Integumentary: reports: No Symptoms Neurological: reports: Dizziness, Syncope Endocrine: reports: No Symptoms Hematology/Lymphatic: reports: No Symptoms Psychiatric: reports: No Symptoms Pain Intensity: 0 Physical Examination Vital Signs: Vital Signs Temperature 98.6 F 02/24/19 19:45 Pulse Rate 59 L 02/25/19 02:54 Respiratory Rate 19 02/25/19 02:54 Blood Pressure 161/73 02/25/19 02:54 O2 Sat by Pulse Oximetry (%) 98 02/25/19 02:54 Constitutional: Yes: Well Nourished, No Distress, Calm Eyes: Yes: WNL, Conjunctiva Clear, EOM Intact, PERRL HENT: Yes: WNL, Atraumatic, Normocephalic Neck: Yes: WNL, Supple, Trachea Midline Cardiovascular: Yes: Pulse Irregular, S1, S2 Respiratory: Yes: WNL, Regular, CTA Bilaterally Gastrointestinal: Yes: WNL, Normal Bowel Sounds, Soft Renal/: Yes: WNL Breast(s): Yes: WNL Musculoskeletal: Yes: WNL Extremities: Yes: WNL Edema: Yes Edema: LLE: 1+, RLE: 1+ Peripheral Pulses WNL: Yes Neurological: Yes: WNL, Alert, Oriented, Cran Nerves II-XII Intact ...Motor Strength: WNL Psychiatric: Yes: WNL, Alert, Oriented Labs: CBC, BMP 02/24/19 18:03 02/24/19 18:03 Laboratory Results - last 24 hr 02/24/19 02/24/19 02/24/19 18:03 18:03 18:03 WBC 5.3 RBC 3.30 L Hgb 9.9 L Hct 29.3 L D MCV 88.7 MCH 30.0 MCHC 33.8 RDW 15.3 Plt Count 126 L MPV 9.6 Absolute Neuts (auto) 2.6 Neutrophils % 49.1 D Lymphocytes % 30.9 D Monocytes % 13.0 H Eosinophils % 5.7 H D Basophils % 1.3 Nucleated RBC % 0 PT with INR 18.60 H INR 1.57 H PTT (Actin FS) 47.9 H Sodium 138 Potassium 4.6 Chloride 105 Carbon Dioxide 26 Anion Gap 7 L BUN 36.1 H Creatinine 2.0 H Est GFR (CKD-EPI)AfAm 34.74 Est GFR (CKD-EPI)NonAf 29.97 Random Glucose 119 H Calcium 8.4 L Total Bilirubin 0.7 AST 22 ALT 16 Alkaline Phosphatase 110 Troponin I 0.09 H B-Natriuretic Peptide Total Protein 6.2 L Albumin 3.1 L 02/24/19 02/25/19 18:03 06:40 WBC 4.5 RBC 3.09 L Hgb 9.3 L Hct 27.5 L MCV 88.9 MCH 30.1 MCHC 33.9 RDW 15.2 Plt Count 93 L D MPV 9.3 Absolute Neuts (auto) 2.2 Neutrophils % 48.9 Lymphocytes % 32.3 Monocytes % 12.2 H Eosinophils % 6.0 H Basophils % 0.6 Nucleated RBC % 0 PT with INR INR PTT (Actin FS) Sodium Potassium Chloride Carbon Dioxide Anion Gap BUN Creatinine Est GFR (CKD-EPI)AfAm Est GFR (CKD-EPI)NonAf Random Glucose Calcium Total Bilirubin AST ALT Alkaline Phosphatase Troponin I B-Natriuretic Peptide 3153.4 H Total Protein Albumin Intake & Output 02/22/19 02/23/19 02/24/19 02/25/19 23:59 23:59 23:59 23:59 Weight 72.575 kg Current Medications Generic Name Dose Route Start Last Admin Trade Name Freq PRN Reason Stop Dose Admin Apixaban 2.5 mg 02/25/19 10:00 Eliquis - PO BID [facility] Atorvastatin Calcium 10 mg 02/25/19 22:00 Lipitor - PO HS [facility] Carvedilol 25 mg 02/25/19 10:00 Coreg - PO BID [facility] Tamsulosin HCl 0.4 mg 02/25/19 08:30 Flomax - PO DAILY@0830 [facility] Imaging - Results Chest X-ray: Report Reviewed, Image Reviewed Cat Scan: Report Reviewed, Image Reviewed EKG: Image Reviewed Problem List - Problems (1) Syncope Code(s): R55 - SYNCOPE AND COLLAPSE (2) Dizziness Code(s): R42 - DIZZINESS AND GIDDINESS (3) Afib Code(s): I48.91 - UNSPECIFIED ATRIAL FIBRILLATION Qualifiers: Atrial fibrillation type: paroxysmal Qualified Code(s): I48.0 - Paroxysmal atrial fibrillation (4) Anemia Code(s): D64.9 - ANEMIA, UNSPECIFIED (5) CAD (coronary artery disease) Code(s): I25.10 - ATHSCL HEART DISEASE OF [place] CORONARY ARTERY W/O ANG PCTRS (6) CHF (congestive heart failure) Code(s): I50.9 - HEART FAILURE, UNSPECIFIED (7) CKD (chronic kidney disease) Code(s): N18.9 - CHRONIC KIDNEY DISEASE, UNSPECIFIED Qualifiers: Chronic kidney disease stage: unspecified stage Qualified Code(s): N18.9 - Chronic kidney disease, unspecified (8) Diabetes Code(s): E11.9 - TYPE 2 DIABETES MELLITUS WITHOUT COMPLICATIONS Qualifiers: Diabetes mellitus type: type 2 Assessment/Plan This is a 83 y/o man placed in Telemetry Observation for Syncope for further evaluation of their emergent condition. Plan Tele Observation Likely secondary to arrhythmia Cardiac Monitoring Serial Enzymes EKG- reviewed Chest Xray- cardiomegaly, no acute process Head CT-pending Appreciate Cardiology consult Echo Carotid Doppler Monitor CBC, BMP BGMs ISS Continue home meds with parameters Hold Valsartan secondary to CKD FEN- Replete lytes, Low Na Diet DVT ppx- OOB, SCDs, Continue Eliquis Dispo: Observation Visit type - Emergency Visit Emergency Visit: Yes ED Registration Date: 02/24/19 Care time: The patient presented to the Emergency Department on the above date and was hospitalized for further evaluation of their emergent condition. - New Patient This patient is new to me today: Yes Date on this admission: 02/24/19 - Critical Care Critical Care patient: No
[2019-02-25 07:07] LABS: BASO % 0.6 % (0-2.0); HEMATOCRIT 27.5 % (35.4-49); HEMOGLOBIN 9.3 GM/dL (11.7-16.9); LYMPH % 32.3 % (8-40); MCH 30.1 pg (25.7-33.7); MCHC 33.9 g/dl (32.0-35.9); MEAN CELL VOLUME 88.9 fl (80-96); MEAN PLT VOLUME 9.3 fl (7.5-11.1); MONO % 12.2 % (3.8-10.2); NEUT % 48.9 % (42.8-82.8); PLATELET COUNT 93 K/MM3 (134-434); RBC 3.09 M/mm3 (4.00-5.60); RDW 15.2 % (11.9-15.9); WHITE BLOOD COUNT 4.5 K/mm3 (4.0-10.0)
[2019-02-25 07:42] LABS: BLOOD UREA NITROGEN 34.8 mg/dL (7-18); CALCIUM 8.2 mg/dL (8.5-10.1); CREATININE 1.8 mg/dL (0.55-1.3); POTASSIUM 4.3 mmol/L (3.5-5.1)
[2019-02-25] MEDS ORDERED: TAMSULOSIN HCL 0.4 MG CAP PO SCH (08:30)
[2019-02-25] MEDS ORDERED: CARVEDILOL 25 MG TABLET (FP) PO SCH (10:00)
[2019-02-25] MEDS ORDERED: APIXABAN 2.5 MG TABLET PO SCH (10:00)
[2019-02-25] MEDS ORDERED: APIXABAN 5 MG TABLET PO ONE (10:14)
[2019-02-25] MEDS ORDERED: CARVEDILOL 12.5 MG TABLET (FP) ONE (10:14)
[2019-02-25] MEDS ORDERED: TAMSULOSIN HCL 0.4 MG CAP ONE (10:15)
--- NOTE | 2019-02-25 10:41 | ECHO ---
Version: 1 Name: KRISTIAN CONNER Exam: Adult Echocardiogram Study Date: 02/25/2019, 9:06 AM Age: 83 Years MMode/2D Measurements & Calculations IVSd: 1.67 cm LVIDs: 3.0 cm LVIDd: 3.5 cm LVPWd: 1.30 cm ACS: 1.86 cm LA dimension: 3.8 cm LVOT diam: 1.81 cm Doppler Measurements & Calculations MV E max td: 133.8 cm/sec Med E/e': 15.2 MV A max td: 57.3 cm/sec Med Peak E' Td: 8.8 cm/sec MV E/A: 2.34 Lat E/e': 16.0 Lat Peak E' Td: 8.3 cm/sec MR max P.5 mmHg Ao max P.7 mmHg DEONDRE(I,D): 0.61 cm Ao mean P.8 mmHg LV V1 mean: 45.5 cm/sec Ao V2 max: 263.0 cm/sec LV V1 mean P.91 mmHg AI P1/2t: 478.1 msec Left Ventricle Normal LV size with mildly decreased LV function. The MD estimated EF is approximately 45 -50%. Right Ventricle The right ventricle is normal in size and function. Atria Mild LAE. Right atrial size is normal. Mitral Valve The mitral valve is grossly normal. There is mild mitral regurgitation. Tricuspid Valve The tricuspid valve is normal. There is trace tricuspid regurgitation. Aortic Valve The aortic valve is normal in structure and function. Mild aortic regurgitation. Pulmonic Valve The pulmonic valve is normal in structure and function. Great Vessels The aortic root is normal size. Pericardium/Pleura There is no pericardial effusion. Summary Statements Normal LV size with mildly decreased LV function. The MD estimated EF is approximately 45 -50%. The right ventricle is normal in size and function. Mild LAE. Right atrial size is normal. The mitral valve is grossly normal. There is mild mitral regurgitation. The tricuspid valve is normal. There is trace tricuspid regurgitation. The aortic valve is normal in structure and function. Mild aortic regurgitation. The aortic root is normal size. There is no pericardial effusion. The pateint appeared to be in atrial fibrillation during this exam. MD Tato Rao 02/25/2019, 9:40 AM Ordering Physician: Verna Thomas Performed By: Ramona Bhagat
--- NOTE | 2019-02-25 10:41 | CON.CARD ---
Cardiology Consult (text) - Consultation Consultation Note: Chief Complaint: dizziness, syncope History of Present Illness: 83M h/o afib on coumadin, CAD p/w syncope. Has been recently experiencing episodes of dizziness with standing up, diagnosed with orthostatic hypotesion. Sees Dr Sanchez for cardio. Usually gets up slowly and waits before starting to do anything. Yesterday he quickly got out of the car and went to put change in the meter. Within 30-60 seconds of standing up he briefly felt lightheadedness and then lost consciousness. Was out for two minutes witnessed by , felt confused for a few seconds then normal after. Has been having presyncope episodes about 2-3 times a week in the setting of going from sitting to standing as well as a history of labiileBP. - Allergies Allergies/Adverse Reactions: Allergies Allergy/AdvReac Type Severity Reaction Status Date / Time No Known Drug Allergies Allergy Verified 02/24/19 16:46 - Home Medications Ambulatory Orders Lantus (10mL VIAL) - 8 units SQ HS 11/03/16 Carvedilol [Coreg -] 25 mg PO BID #60 tablet 08/24/18 Clonidine Patch [Catapres Tts Patch -] 0.2 mg TD Q7D@1000 #4 patch.tdwk Cephalexin Monohydrate [Keflex -] 500 mg PO BID #4 capsule 09/11/18 Furosemide [Lasix -] 80 mg PO BID@0600,1400 #120 tablet 09/11/18 Insulin Aspart [Novolog] 0 unit SQ TID #1 ea 09/11/18 Polyethylene Glycol 3350 [Miralax 119 gm Btl -] 17 gm PO DAILY #1 bottle Simvastatin [Zocor -] 20 mg PO HS #30 tab 09/11/18 Tamsulosin HCl 0.4 mg PO DAILY #30 tab 09/11/18 Warfarin Na [Coumadin -] 2 mg PO SUMOTUTHFRSA #30 tab 09/11/18 Warfarin Na [Coumadin -] 3 mg PO We@1800 #10 tablet 09/11/18 Tamsulosin HCl [Flomax -] 0.4 mg PO DAILY@0830 #30 cap.er.24h MDD 1 09/12/18 Family Disease History - Family Disease History Family History: Unremarkable Review of Systems - Review of Systems per hpi; no nvd fever gib hematuria dysuria wt loss abd pain vision changes Vital Signs Period Temp Pulse Resp BP Sys/Gregory Pulse Ox Last 24 Hr 98.0 F-98.6 F 52-64 16-19 92-198/37-73 95-99 Constitutional: Yes: Calm, nad Eyes: Yes: Conjunctiva Clear, EOM Intact HENT: Yes: Atraumatic, Normocephalic Neck: Yes: Supple, Trachea Midline Respiratory: Yes: Regular, CTA Bilaterally Gastrointestinal: Yes: Normal Bowel Sounds, Soft. No: Tenderness Cardiovascular: Yes: Pulse Irregular JVD: yes Carotid Bruit: No PMI: Non-Displaced Heart Sounds: Yes: S1, S2 Musculoskeletal: No: Back Pain Extremities: No: Cold Edema: 2+ le edema bl with erythema bl Peripheral Pulses WNL: Yes Peripheral Pulses: 2+ Left Doralis Pedis, 2+ Right Dorsalis Pedis Integumentary: No: Jaundice Neurological: Yes: Alert, Oriented Psychiatric: No: Agitated Laboratory Last Values WBC 4.5 K/mm3 (4.0-10.0) 02/25/19 06:40 RBC 3.09 M/mm3 (4.00-5.60) L 02/25/19 06:40 Hgb 9.3 GM/dL (11.7-16.9) L 02/25/19 06:40 Hct 27.5 % (35.4-49) L 02/25/19 06:40 MCV 88.9 fl (80-96) 02/25/19 06:40 MCH 30.1 pg (25.7-33.7) 02/25/19 06:40 MCHC 33.9 g/dl (32.0-35.9) 02/25/19 06:40 RDW 15.2 % (11.9-15.9) 02/25/19 06:40 Plt Count 93 K/MM3 (134-434) L D 02/25/19 06:40 MPV 9.3 fl (7.5-11.1) 02/25/19 06:40 Absolute Neuts (auto) 2.2 K/mm3 (1.5-8.0) 02/25/19 06:40 Neutrophils % 48.9 % (42.8-82.8) 02/25/19 06:40 Lymphocytes % 32.3 % (8-40) 02/25/19 06:40 Monocytes % 12.2 % (3.8-10.2) H 02/25/19 06:40 Eosinophils % 6.0 % (0-4.5) H 02/25/19 06:40 Basophils % 0.6 % (0-2.0) 02/25/19 06:40 Nucleated RBC % 0 % (0-0) 02/25/19 06:40 PT with INR 18.60 SEC (9.7-13.0) H 02/24/19 18:03 INR 1.57 (0.83-1.09) H 02/24/19 18:03 PTT (Actin FS) 47.9 SECONDS (25.2-36.5) H 02/24/19 18:03 Sodium 141 mmol/L (136-145) 02/25/19 06:40 Potassium 4.3 mmol/L (3.5-5.1) 02/25/19 06:40 Chloride 109 mmol/L (98-107) H 02/25/19 06:40 Carbon Dioxide 27 mmol/L (21-32) 02/25/19 06:40 Anion Gap 5 MMOL/L (8-16) L 02/25/19 06:40 BUN 34.8 mg/dL (7-18) H 02/25/19 06:40 Creatinine 1.8 mg/dL (0.55-1.3) H 02/25/19 06:40 Est GFR (CKD-EPI)AfAm 39.46 02/25/19 06:40 Est GFR (CKD-EPI)NonAf 34.05 02/25/19 06:40 POC Glucometer 165 UNITS (80-120) 02/25/19 08:43 Random Glucose 169 mg/dL (74-106) H 02/25/19 06:40 Hemoglobin A1c % 7.5 % (4.2-6.3) H 02/25/19 06:40 Calcium 8.2 mg/dL (8.5-10.1) L 02/25/19 06:40 Magnesium 2.0 mg/dL (1.8-2.4) 02/25/19 06:40 Total Bilirubin 0.7 mg/dL (0.2-1) 02/24/19 18:03 AST 22 U/L (15-37) 02/24/19 18:03 ALT 16 U/L (13-61) 02/24/19 18:03 Alkaline Phosphatase 110 U/L (45-117) 02/24/19 18:03 Troponin I 0.05 ng/ml (0.00-0.05) 02/25/19 06:40 B-Natriuretic Peptide 3153.4 pg/ml (5-450) H 02/24/19 18:03 Total Protein 6.2 g/dl (6.4-8.2) L 02/24/19 18:03 Albumin 3.1 g/dl (3.4-5.0) L 02/24/19 18:03 TSH 3.02 uIU/ml (0.358-3.74) D 02/25/19 06:40 cxr: no congestion MIBI 07/05 (pers): no STs; small area apical isch and basal inferolateral wall; mild global LV hypo, EF 46% mibi 08/2018: lvef 66, no ischemia ecg: afib, rate ok, no ischemic changes Echo 10/07: 1. The left ventricular size is normal. 2. Overall left ventricular systolic function is normal with, an EF between 60 - 65 %. 3. LA pressure is uncertain. 4. No regional wall motion abnormalities were noted (basal inferolateral wall may be mildly hypokinetic). 5. The right ventricle is normal in size and function. 6. Left atrium is severely dilated by volume. 7. There is mild aortic regurgitation. 8. The mitral valve is normal in appearance, with no prolapse, flail leaflet, or tethered motion noted. 9. 2 separate MR jets are present: one directed anteriorly, the other central. The anterior jet hugs the antreior LA wall/interatrial septum and is not seen to wrap around the posterior LA wall. The visual appearance is of moderate mitral regurgitation, however the eccentric nature of the anterior jet may lead to underestimation of MR severity on color jet flow analysis. The peak mitral inflow velocity (0.7 m/sec) makes severe mitral regurgitation less likely. There is no systolic flow reversal present in the pulmonary vein. PISA hemisphere could not be measured. Estimated regurgitant volume by volumetric measurements yields and estimate of 35 cc. 10. Mild tricuspid regurgitation present. 11. Unable to estimate RVSP due to inadequate TR jet spectral doppler profile. echo 07/2018: nl lv/rv, lae, mild mr/tr/ar, nl rvsp echo 02/2019 mildly decrased LV function 45-50%, RV nl, mild LAE, RA nl, mild MR , mild AR, atrial fibrillation tele: afib, rate controlled a/p: 84 yo with h/o CAD s/p CABG, afib on coumadin CVA, hypertension, hyperlipidemia, IDDM, liver cancer(Chemo, 40% liver removed in 2008), who p/w syncope syncope - likely orthostatic hypotension - monitoring on tele - no events - trop neg x 2, no ischemic changes - advised increased hydration, get up slowly as doing - on tamsulosin - outpatient followup with urologist to discuss if can be stopped or if alternate agent can be used - restart lasix at lower dose, 20 mg daily. hold valsartan for now - no further inpatient testing, stable for dc from cardiac perspective chronic systolic HF - BNP similar to prior values - no congestion on CXR - cont carvedilol, holding valsartan as above - restart lasix at 20 mg daily - echo here shows mildly reduced EF - outpatient follow up with Dr. Sanchez for further evaluation pAFib: - rate controlled, cont coreg and eliquis CAD, S/P CABG '05: GAN TO LAD, SVG SEQUENTIAL TO DIAG-->OM; SVG TO RPDA: -cont home statin, (not on ASA, given pt on AC) -recent mibi in office 09/10 no ischemia, nl LVEF. -no signs acs here. HTN: - h/o labile BPs (worse MR/CHF when bp's uncontrolled, low with orthostatic sx' s at times as well) - valsartan and lasix held this AM - hold valsartan, may be able to restart if tamsulosin dc'ed. 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
[2019-02-25] MEDS ORDERED: FUROSEMIDE 40 MG TABLET (FP) PO SCH (11:00)
[2019-02-25] MEDS ORDERED: FUROSEMIDE 20 MG TABLET (FP) PO SCH (11:00)
[2019-02-25] MEDS ORDERED: VALSARTAN 40 MG TABLET (FP) PO SCH (11:00)
[2019-02-25] MEDS ORDERED: FUROSEMIDE 40 MG TABLET (FP) ONE (11:09)
--- NOTE | 2019-02-25 15:34 | EKG ---
Test Reason : Blood Pressure : / mmHG Vent. Rate : 058 BPM Atrial Rate : 070 BPM P-R Int : 000 ms QRS Dur : 120 ms QT Int : 448 ms P-R-T Axes : 000 -22 038 degrees QTc Int : 439 ms ATRIAL FIBRILLATION WITH SLOW VENTRICULAR RESPONSE NON-SPECIFIC INTRA-VENTRICULAR CONDUCTION DELAY LEFT VENTRICULAR HYPERTROPHY ABNORMAL ECG Confirmed by MD BRAYDEN, MOHIT ([id number]) on 02/25/2019 3:33:56 PM Referred By: Confirmed By:MOHIT OWEN MD
--- NOTE | 2019-02-25 16:29 | DS ---
Physical Examination Vital Signs: Vital Signs Temperature 97.9 F 02/25/19 15:26 Pulse Rate 70 02/25/19 15:26 Respiratory Rate 18 02/25/19 15:26 Blood Pressure 133/84 02/25/19 15:26 O2 Sat by Pulse Oximetry (%) 95 02/25/19 15:26 Findings/Remarks: Patient is an 83 y/o male with past medical history of Afib (on Eliquis), CAD, CHF, HTN, HLD, renal insufficiency, IDDM, CABG. Patient presented to ER after having syncopal episode with LOC yesterday. When patient regained consciousness he was slightly confused for 10 seconds. After eating patient felt shaky and his called his food checker and he recommend patient come to ER. Prior to today patient has been having pre-syncopal episodes frequentyl when standing or sitting. Constitutional: Yes: No Distress, Calm Eyes: Yes: Conjunctiva Clear HENT: Yes: Atraumatic Cardiovascular: Yes: Pulse Irregular Respiratory: Yes: Regular, CTA Bilaterally Gastrointestinal: Yes: Normal Bowel Sounds, Soft Musculoskeletal: Yes: WNL Extremities: Yes: WNL Edema: No Neurological: Yes: Alert, Oriented Psychiatric: Yes: Alert, Oriented Labs: CBC, BMP 02/25/19 06:40 02/25/19 06:40 Discharge Summary Reason For Visit: CHEST PAIN, RULE OUT ACUTE MYOCARDIAL INFARCTION Current Active Problems Dizziness (Acute) Syncope (Acute) Procedures: Principal: Head CT scan. Carotid Artery US Hospital Course: see progress notes Laboratory Tests 02/24/19 02/24/19 02/24/19 18:03 18:03 18:03 WBC 5.3 RBC 3.30 L Hgb 9.9 L Hct 29.3 L D MCV 88.7 MCH 30.0 MCHC 33.8 RDW 15.3 Plt Count 126 L MPV 9.6 Absolute Neuts (auto) 2.6 Neutrophils % 49.1 D Lymphocytes % 30.9 D Monocytes % 13.0 H Eosinophils % 5.7 H D Basophils % 1.3 Nucleated RBC % 0 PT with INR 18.60 H INR 1.57 H PTT (Actin FS) 47.9 H Sodium 138 Potassium 4.6 Chloride 105 Carbon Dioxide 26 Anion Gap 7 L BUN 36.1 H Creatinine 2.0 H Est GFR (CKD-EPI)AfAm 34.74 Est GFR (CKD-EPI)NonAf 29.97 POC Glucometer Random Glucose 119 H Hemoglobin A1c % Calcium 8.4 L Magnesium Total Bilirubin 0.7 AST 22 ALT 16 Alkaline Phosphatase 110 Troponin I 0.09 H B-Natriuretic Peptide Total Protein 6.2 L Albumin 3.1 L TSH 02/24/19 02/25/19 02/25/19 18:03 06:40 06:40 WBC 4.5 RBC 3.09 L Hgb 9.3 L Hct 27.5 L MCV 88.9 MCH 30.1 MCHC 33.9 RDW 15.2 Plt Count 93 L D MPV 9.3 Absolute Neuts (auto) 2.2 Neutrophils % 48.9 Lymphocytes % 32.3 Monocytes % 12.2 H Eosinophils % 6.0 H Basophils % 0.6 Nucleated RBC % 0 PT with INR INR PTT (Actin FS) Sodium 141 Potassium 4.3 Chloride 109 H Carbon Dioxide 27 Anion Gap 5 L BUN 34.8 H Creatinine 1.8 H Est GFR (CKD-EPI)AfAm 39.46 Est GFR (CKD-EPI)NonAf 34.05 POC Glucometer Random Glucose 169 H Hemoglobin A1c % Calcium 8.2 L Magnesium 2.0 Total Bilirubin AST ALT Alkaline Phosphatase Troponin I 0.05 B-Natriuretic Peptide 3153.4 H Total Protein Albumin TSH 3.02 D 02/25/19 02/25/19 06:40 08:43 WBC RBC Hgb Hct MCV MCH MCHC RDW Plt Count MPV Absolute Neuts (auto) Neutrophils % Lymphocytes % Monocytes % Eosinophils % Basophils % Nucleated RBC % PT with INR INR PTT (Actin FS) Sodium Potassium Chloride Carbon Dioxide Anion Gap BUN Creatinine Est GFR (CKD-EPI)AfAm Est GFR (CKD-EPI)NonAf POC Glucometer 165 Random Glucose Hemoglobin A1c % 7.5 H Calcium Magnesium Total Bilirubin AST ALT Alkaline Phosphatase Troponin I B-Natriuretic Peptide Total Protein Albumin TSH Active Medications Generic Name Dose Route Start Last Admin Trade Name Freq PRN Reason Stop Dose Admin Apixaban 2.5 mg 02/25/19 10:00 02/25/19 10:18 Eliquis - PO 2.5 mg BID RAMU Administration Atorvastatin Calcium 10 mg 02/25/19 22:00 Lipitor - PO HS RAMU Carvedilol 25 mg 02/25/19 10:00 02/25/19 10:18 Coreg - PO 25 mg BID RAMU Administration Furosemide 40 mg 02/26/19 11:00 Lasix - PO DAILY RAMU Tamsulosin HCl 0.4 mg 02/25/19 08:30 02/25/19 10:18 Flomax - PO 0.4 mg DAILY@0830 RAMU Administration Condition: Stable - Instructions Diet, Activity, Other Instructions: Follow up with PMD tomorrow Follow up with [facility] Dr Sanchez continue with Furosemide daily, hold Valsartan continue with medication as prescribed will need CT scan of neck as outpatient return to ER if develop severe pain, respiratory distress,chest pain, altered mental status, fainting Referrals: Rojas Sanchez MD [Staff Physician] - Idris Borges MD [Primary Care Provider] - Disposition: HOME - Home Medications Comprehensive Discharge Medication List: Ambulatory Orders Polyethylene Glycol 3350 [Miralax 119 gm Btl -] 17 gm PO DAILY #1 bottle Apixaban [Eliquis] 2.5 mg PO BID 02/24/19 Atorvastatin Ca [Lipitor] 10 mg PO HS MDD 1 02/24/19 Carvedilol [Coreg -] 25 mg PO BID 02/24/19 Furosemide [Lasix] 40 mg PO DAILY 02/24/19 Tamsulosin HCl 0.4 mg PO DAILY 02/24/19 Valsartan 40 mg PO DAILY 02/24/19 Furosemide [Lasix -] 40 mg PO DAILY tablet 02/25/19
[2019-02-25] MEDS ORDERED: BACITRACIN 0.9 GM PACKET ONE (17:30)
[2019-02-25 17:42] VITALS: BP 133/74; PULSE 78; TEMP 98
[2019-02-25] MEDS ORDERED: ATORVASTATIN CA 10 MG TABLET (FP) PO SCH (22:00)
[2019-02-26] MEDS ORDERED: FUROSEMIDE 40 MG TABLET (FP) PO SCH (11:00)
== END 2019-02-25 17:43 | disposition home or self-care (01) ==
LOC: JER 16:39 → JERBED 19:00
PROVIDERS: ADMIT Family Medicine; ATTEND Family Medicine
DX: R55 Syncope and collapse (principal); R42 Dizziness and giddiness; E11.22 Type 2 diabetes mellitus with diabetic chronic kidney disease; I13.0 Hypertensive heart and chronic kidney disease with heart failure and stage 1 through stage 4 chronic kidney disease, or unspecified chronic kidney disease; N18.9 Chronic kidney disease, unspecified; I50.32 Chronic diastolic (congestive) heart failure; Z79.4 Long term (current) use of insulin; E78.5 Hyperlipidemia, unspecified; I25.10 Atherosclerotic heart disease of native coronary artery without angina pectoris; I48.0 Paroxysmal atrial fibrillation; D64.9 Anemia, unspecified; Z85.05 Personal history of malignant neoplasm of liver; Z95.1 Presence of aortocoronary bypass graft; Z92.21 Personal history of antineoplastic chemotherapy
CPT/HCPCS: 36415; 70450-TC; 71045-TC-FY; 80048; 80053; 82962; 83036; 83735; 83880; 84443; 84484; 85025; 85610; 85730; 93005; 93010; 93306-TC; 93880-TC; 99285-25; G0378

== ENCOUNTER 2019-05-05 11:06 | Day surgery (SDC) | payer OTHER ==
[~2019-05-05 11:06] MED LIST: HYDROCORTISONE SOD SUCCINATE 100 MG/2 ML VIAL IVPB PRN; IRON SUCROSE INJECTION 200 MG in SODIUM CHLORIDE 100 ML IVPB ONE; diphenhydrAMINE HCL 25 MG CAPSULE (FP) PO PRN
[2019-05-05 15:59] VITALS: BP 140/39; PULSE 62; TEMP 98.2
== END 2019-05-05 13:25 | disposition home or self-care (01) ==
LOC: JINFUSION 11:06
PROVIDERS: ATTEND Internal Medicine Nephrology
PROC: 3E033GC Introduction of Other Therapeutic Substance into Peripheral Vein, Percutaneous Approach (ICD-10-PCS; principal; 2019-05-05)
DX: D50.9 Iron deficiency anemia, unspecified (principal)
CPT/HCPCS: 96365; J1756

== ENCOUNTER 2021-03-20 06:07 | Inpatient (IN) | payer OTHER ==
[2021-03-20] MEDS: NITROGLYCERIN SUBLINGUAL 1/150 0.4 MG TAB SL SCH ×3 (06:20→06:30)
[2021-03-20 06:33] LABS: BASO % 0.4 % (0-2.0); EOS % 0.1 % (0-4.5); HEMATOCRIT 41.5 % (35.4-49); HEMOGLOBIN 14.7 GM/dL (11.7-16.9); LYMPH % 18.7 % (8-40); MCH 36.3 pg (25.7-33.7); MCHC 35.4 g/dl (32.0-35.9); MEAN CELL VOLUME 102.5 fl (80-96); MEAN PLT VOLUME 9.2 fl (7.5-11.1); MONO % 5.8 % (3.8-10.2); PLATELET COUNT 131 10^3/uL (134-434); RBC 4.05 M/mm3 (4.00-5.60); RDW 13.7 % (11.9-15.9); WHITE BLOOD COUNT 7.3 K/mm3 (4.0-10.0)
[2021-03-20 06:36] LABS: VENOUS BASE EXCESS -2.3 mmol/L (-2-2); VENOUS O2 SATURATION 71.9 % (70-80); VENOUS PCO2 53.7 mmHg (38-52); VENOUS PH 7.288 (7.310-7.410)
[2021-03-20] MEDS ORDERED: SODIUM CHLORIDE 0.9% 500 ML INFUS.BAG IV ONE (06:40)
[2021-03-20 06:44] LABS: INR 1.57 (0.83-1.09); PROTHROMBIN TIME (PATIENT) 18.7 SEC (9.7-13.0)
[2021-03-20 06:47] LABS: ACTIVATED PTT 38.1 SECONDS (25.2-36.5)
[2021-03-20 06:54] LABS: CALCIUM 8.7 mg/dL (8.5-10.1)
[2021-03-20 06:55] LABS: ALBUMIN 3.6 g/dl (3.4-5.0); BLOOD UREA NITROGEN 57.4 mg/dL (7-18); MAGNESIUM 2.5 mg/dL (1.8-2.4)
[2021-03-20 06:58] LABS: CREATININE 2.2 mg/dL (0.55-1.3)
[2021-03-20 06:59] LABS: TOT PROT 7.1 g/dl (6.4-8.2)
[2021-03-20 07:01] LABS: N-TERMINAL BNP 5973.5 pg/ml (5-450)
[2021-03-20] MEDS ORDERED: FUROSEMIDE 40 MG/4 ML INJECTABLE VIAL IVPUSH ONE (07:02)
[2021-03-20] MEDS ORDERED: FUROSEMIDE 40 MG/4 ML INJECTABLE VIAL ONE (07:12)
[2021-03-20] MEDS ORDERED: NITROGLYCERIN SUBLINGUAL 1/150 0.4 MG TAB SL ONE (07:59)
[2021-03-20] MEDS ORDERED: LIDOCAINE 5% TOPICAL PATCH TP ONE (07:59)
[2021-03-20] MEDS ORDERED: LIDOCAINE 5% TOPICAL PATCH ONE (08:00)
[2021-03-20] MEDS ORDERED: NITROGLYCERIN 50MG/D5W 250ML 50 MG/250 ML ML IVPB SCH (08:45)
[2021-03-20] MEDS ORDERED: NITROGLYCERIN 25MG/D5W 250ML 25 MG/250 ML ML IVPB ONE (08:52)
[2021-03-20 10:23] LABS: EPI CELLS 2 /uL (0-25.1); HYALINE CASTS 1 /uL (0-3.1); URINE APPEARANCE CLEAR; URINE BACTERIA 1 /uL (0-1359); URINE BILIRUBIN NEGATIVE (NEGATIVE); URINE COLOR YELLOW; URINE GLUCOSE (UA) NEGATIVE (NEGATIVE); URINE KETONE NEGATIVE (NEGATIVE); URINE LEUK ESTERASE NEGATIVE (NEGATIVE); URINE NITRITE NEGATIVE (NEGATIVE); URINE PROTEIN 3+ (NEGATIVE); URINE RBC 38 /uL (0-23.9); URINE UROBILINOGEN 0.2 mg/dL (0.2-1.0); URINE WBC 3 /uL (0-25.8)
[2021-03-20] MEDS ORDERED: CALAMINE 8% TOPICAL LOTION 177 ML BOTTLE TP PRN (14:08)
[2021-03-20] MEDS: ACETAMINOPHEN 1000 MG/100 ML VIAL (NON FORMULARY) IVPB PRN (14:44)
[2021-03-20] MEDS: MUPIROCIN 2% TOPICAL OINTMENT FOR DECOLONIZATION NS SCH ×2 (15:33→21:14)
[2021-03-20] MEDS: INSULIN SLIDING SCALE (NOVOLOG) 1 VIAL SQ SCH ×2 (17:00→22:27)
[2021-03-20] MEDS ORDERED: LIDOCAINE PATCH REMOVAL MC ONE (20:00)
[2021-03-20] MEDS: CHLORHEXIDINE GLUCONATE 4% CLEANSER FOR DECOLONIZATION TP SCH (21:14)
[2021-03-20] MEDS: CARVEDILOL 6.25 MG TABLET (FP) PO SCH (21:14)
[2021-03-20] MEDS ORDERED: PT OWN MED DRAWER 7, Y5N ONE (21:27)
[2021-03-20] MEDS: valACYclovir HCL 500 MG TABLET (FP) PO SCH (22:23)
[2021-03-20] MEDS: APIXABAN 2.5 MG TABLET PO SCH (22:23)
[2021-03-20] MEDS ORDERED: ACETAMINOPHEN 500 MG TABLET (FP) PO ONE (23:19)
[2021-03-21] MEDS: CARVEDILOL 6.25 MG TABLET (FP) PO SCH ×3 (00:22→21:23)
[2021-03-21] MEDS ORDERED: morphine CARPU-JECT 4 MG/1 ML DISP.SYRIN IVPUSH PRN (02:14)
[2021-03-21] MEDS ORDERED: morphine SULFATE 4 MG/ML VIAL IVPUSH PRN (02:16)
[2021-03-21] MEDS ORDERED: DOCUSATE SODIUM 100 MG CAPSULE (FP) PO PRN (06:00)
[2021-03-21] MEDS: INSULIN SLIDING SCALE (NOVOLOG) 1 VIAL SQ SCH ×5 (06:08→21:24)
[2021-03-21 07:26] LABS: HEMATOCRIT 34.9 % (35.4-49); HEMOGLOBIN 12.3 GM/dL (11.7-16.9); MCH 35.7 pg (25.7-33.7); MCHC 35.3 g/dl (32.0-35.9); MEAN CELL VOLUME 101.3 fl (80-96); MEAN PLT VOLUME 9.3 fl (7.5-11.1); PLATELET COUNT 102 10^3/uL (134-434); RBC 3.44 M/mm3 (4.00-5.60); RDW 13.9 % (11.9-15.9); WHITE BLOOD COUNT 11.8 K/mm3 (4.0-10.0)
[2021-03-21 07:40] LABS: ALBUMIN 2.9 g/dl (3.4-5.0); BLOOD UREA NITROGEN 58.6 mg/dL (7-18); CALCIUM 7.9 mg/dL (8.5-10.1); MAGNESIUM 2.4 mg/dL (1.8-2.4)
[2021-03-21 07:43] LABS: CREATININE 1.9 mg/dL (0.55-1.3); PHOSPHOROUS 3.6 mg/dL (2.5-4.9)
[2021-03-21 07:45] LABS: BILIRUBIN,TOTAL 1.4 mg/dL (0.2-1); TOT PROT 6.3 g/dl (6.4-8.2)
[2021-03-21] MEDS ORDERED: PT OWN MED DRAWER 7, Y5N ONE ×2 (08:30→14:39)
[2021-03-21] MEDS: ACETAMINOPHEN 1000 MG/100 ML VIAL (NON FORMULARY) IVPB PRN ×2 (08:32→17:20)
[2021-03-21] MEDS ORDERED: ONDANSETRON 4 MG TABLET PO ONE (08:54)
[2021-03-21] MEDS: FINASTERIDE 5 MG TABLET (FP) PO SCH (09:30)
[2021-03-21] MEDS: valACYclovir HCL 500 MG TABLET (FP) PO SCH (09:30)
[2021-03-21] MEDS: amLODIPine BESYLATE 2.5 MG TABLET (FP) PO SCH (09:30)
[2021-03-21] MEDS: APIXABAN 2.5 MG TABLET PO SCH ×2 (09:30→21:23)
[2021-03-21] MEDS: MUPIROCIN 2% TOPICAL OINTMENT FOR DECOLONIZATION NS SCH ×2 (09:31→21:24)
[2021-03-21] MEDS: FUROSEMIDE 40 MG/4 ML INJECTABLE VIAL IVPUSH SCH (14:41)
[2021-03-21] MEDS: SENNOSIDES 8.6MG TABLET (FP) PO SCH (21:23)
[2021-03-21] MEDS: LATANOPROST 0.005% OPHTH SOLN 2.5ML BOTTLE OU SCH (21:23)
[2021-03-21] MEDS: CHLORHEXIDINE GLUCONATE 4% CLEANSER FOR DECOLONIZATION TP SCH (21:24)
[2021-03-21] MEDS: PANTOPRAZOLE SODIUM 40 MG VIAL IVPUSH SCH (21:24)
[2021-03-21] MEDS: INSULIN (LEVEMIR) 100 UNITS/ML UNITS SQ SCH (21:24)
[2021-03-21] MEDS ORDERED: valACYclovir HCL 1000 MG TABLET PO SCH (22:00)
[2021-03-22] MEDS ORDERED: MORPHINE SULFATE 2 MG/ML VIAL IVPUSH PRN (04:28)
[2021-03-22 06:48] LABS: BASO % 0.5 % (0-2.0); EOS % 1.4 % (0-4.5); HEMATOCRIT 36.5 % (35.4-49); HEMOGLOBIN 12.6 GM/dL (11.7-16.9); MCH 35.6 pg (25.7-33.7); MCHC 34.5 g/dl (32.0-35.9); MEAN CELL VOLUME 102.9 fl (80-96); MEAN PLT VOLUME 9.3 fl (7.5-11.1); MONO % 12.4 % (3.8-10.2); NEUT % 72.7 % (42.8-82.8); PLATELET COUNT 82 10^3/uL (134-434); RBC 3.54 M/mm3 (4.00-5.60); WHITE BLOOD COUNT 5.8 K/mm3 (4.0-10.0)
[2021-03-22] MEDS: INSULIN (LEVEMIR) 100 UNITS/ML UNITS SQ SCH ×2 (07:03→21:53)
[2021-03-22] MEDS: INSULIN SLIDING SCALE (NOVOLOG) 1 VIAL SQ SCH ×4 (07:03→21:53)
[2021-03-22 07:06] LABS: CALCIUM 8.2 mg/dL (8.5-10.1)
[2021-03-22 07:07] LABS: BLOOD UREA NITROGEN 61.9 mg/dL (7-18); MAGNESIUM 2.5 mg/dL (1.8-2.4)
[2021-03-22 07:10] LABS: CREATININE 2.2 mg/dL (0.55-1.3); PHOSPHOROUS 4.6 mg/dL (2.5-4.9)
[2021-03-22 07:11] LABS: BILIRUBIN,TOTAL 1.1 mg/dL (0.2-1)
[2021-03-22 07:12] LABS: TOT PROT 5.7 g/dl (6.4-8.2)
[2021-03-22] MEDS ORDERED: PT OWN MED DRAWER 7, Y5N ONE ×2 (08:28→10:20)
[2021-03-22] MEDS: PANTOPRAZOLE SODIUM 40 MG VIAL IVPUSH SCH ×2 (08:36→21:52)
[2021-03-22] MEDS: FUROSEMIDE 40 MG/4 ML INJECTABLE VIAL IVPUSH SCH ×2 (08:36→21:52)
[2021-03-22] MEDS: amLODIPine BESYLATE 2.5 MG TABLET (FP) PO SCH (08:37)
[2021-03-22] MEDS: FINASTERIDE 5 MG TABLET (FP) PO SCH ×2 (08:37→21:52)
[2021-03-22] MEDS: APIXABAN 2.5 MG TABLET PO SCH ×3 (08:37→21:53)
[2021-03-22] MEDS: LOSARTAN POTASSIUM 50 MG TABLET PO SCH ×2 (08:38→21:51)
[2021-03-22] MEDS ORDERED: LABETALOL HCL 5 MG/1 ML (100MG/20 ML VIAL) IVPUSH ONE (09:15)
[2021-03-22] MEDS: CARVEDILOL 6.25 MG TABLET (FP) PO SCH ×3 (09:30→21:53)
[2021-03-22] MEDS ORDERED: F PO ONE (10:00)
[2021-03-22] MEDS ORDERED: amLODIPine BESYLATE 5 MG TABLET (FP) PO ONE (10:15)
[2021-03-22] MEDS ORDERED: amLODIPine BESYLATE 2.5 MG TABLET (FP) PO ONE (10:15)
[2021-03-22] MEDS ORDERED: POLYETHYLENE GLYCOL 3350 119 GM BTL PO SCH (10:15)
[2021-03-22] MEDS: MUPIROCIN 2% TOPICAL OINTMENT FOR DECOLONIZATION NS SCH ×2 (12:20→21:55)
[2021-03-22] MEDS ORDERED: INSULIN (NOVOLOG) ASPART 100 UNITS/ML 10ML VIAL ONE (17:28)
[2021-03-22] MEDS: ACETAMINOPHEN 1000 MG/100 ML VIAL (NON FORMULARY) IVPB PRN ×2 (18:30→23:34)
[2021-03-22] MEDS: POLYETHYLENE GLYCOL (HEALTHYLAX) 3350 17 GM PACKET PO SCH (21:53)
[2021-03-22] MEDS: SENNOSIDES 8.6MG TABLET (FP) PO SCH (21:53)
[2021-03-22] MEDS: CHLORHEXIDINE GLUCONATE 4% CLEANSER FOR DECOLONIZATION TP SCH (21:55)
[2021-03-22] MEDS: LATANOPROST 0.005% OPHTH SOLN 2.5ML BOTTLE OU SCH (21:55)
[2021-03-23] MEDS ORDERED: MORPHINE SULFATE 2 MG/ML VIAL IVPUSH ONE (02:30)
[2021-03-23] MEDS: INSULIN (LEVEMIR) 100 UNITS/ML UNITS SQ SCH ×2 (06:14→21:56)
[2021-03-23] MEDS: INSULIN SLIDING SCALE (NOVOLOG) 1 VIAL SQ SCH ×4 (06:19→21:57)
[2021-03-23] MEDS: ACETAMINOPHEN 1000 MG/100 ML VIAL (NON FORMULARY) IVPB PRN (06:22)
[2021-03-23 07:45] LABS: BASO % 0.6 % (0-2.0); EOS % 2.9 % (0-4.5); HEMATOCRIT 35.7 % (35.4-49); HEMOGLOBIN 12.4 GM/dL (11.7-16.9); LYMPH % 22.5 % (8-40); MCH 35.9 pg (25.7-33.7); MCHC 34.7 g/dl (32.0-35.9); MEAN CELL VOLUME 103.5 fl (80-96); MEAN PLT VOLUME 9.6 fl (7.5-11.1); MONO % 21.7 % (3.8-10.2); NEUT % 52.3 % (42.8-82.8); PLATELET COUNT 71 10^3/uL (134-434); RBC 3.45 M/mm3 (4.00-5.60); WHITE BLOOD COUNT 3.6 K/mm3 (4.0-10.0)
[2021-03-23 08:11] LABS: CALCIUM 7.7 mg/dL (8.5-10.1)
[2021-03-23 08:12] LABS: ALBUMIN 2.5 g/dl (3.4-5.0); BLOOD UREA NITROGEN 59.6 mg/dL (7-18); MAGNESIUM 2.7 mg/dL (1.8-2.4)
[2021-03-23 08:15] LABS: CREATININE 1.9 mg/dL (0.55-1.3); PHOSPHOROUS 3.7 mg/dL (2.5-4.9)
[2021-03-23 08:16] LABS: BILIRUBIN,TOTAL 1.2 mg/dL (0.2-1)
[2021-03-23 08:44] LABS: TOT PROT 5.3 g/dl (6.4-8.2)
[2021-03-23 09:00] LABS: ANISOCYTOSIS 1+; MACROCYTOSIS 1+; PLATELET ESTIMATE DECREASED
[2021-03-23] MEDS ORDERED: MORPHINE SULFATE 2 MG/ML VIAL IVPUSH PRN (09:03)
[2021-03-23] MEDS: LOSARTAN POTASSIUM 50 MG TABLET PO SCH (09:35)
[2021-03-23] MEDS: PANTOPRAZOLE SODIUM 40 MG VIAL IVPUSH SCH (09:35)
[2021-03-23] MEDS: FINASTERIDE 5 MG TABLET (FP) PO SCH (09:35)
[2021-03-23] MEDS: CARVEDILOL 6.25 MG TABLET (FP) PO SCH ×2 (09:35→21:47)
[2021-03-23] MEDS: APIXABAN 2.5 MG TABLET PO SCH ×2 (09:35→21:47)
[2021-03-23] MEDS: MUPIROCIN 2% TOPICAL OINTMENT FOR DECOLONIZATION NS SCH ×2 (09:36→21:47)
[2021-03-23] MEDS: FUROSEMIDE 40 MG/4 ML INJECTABLE VIAL IVPUSH SCH (09:36)
[2021-03-23] MEDS: POLYETHYLENE GLYCOL (HEALTHYLAX) 3350 17 GM PACKET PO SCH ×2 (09:39→21:48)
[2021-03-23] MEDS ORDERED: PT OWN MED DRAWER 7, Y5N ONE ×3 (09:41→13:07)
[2021-03-23] MEDS ORDERED: amLODIPine BESYLATE 10 MG TABLET (FP) PO SCH (10:00)
[2021-03-23] MEDS ORDERED: valACYclovir HCL 1000 MG TABLET PO SCH (10:00)
[2021-03-23] MEDS ORDERED: valACYclovir HCL 500 MG TABLET (FP) PO SCH (10:00)
[2021-03-23] MEDS ORDERED: traMADol HCL 50 MG TABLET PO PRN (12:11)
[2021-03-23] MEDS ORDERED: TORSEMIDE 20 MG TABLET (FP) PO SCH ×3 (12:30→14:00)
[2021-03-23] MEDS ORDERED: INSULIN (NOVOLOG) ASPART 100 UNITS/ML 10ML VIAL ONE (13:19)
[2021-03-23] MEDS: SENNOSIDES 8.6MG TABLET (FP) PO SCH (21:47)
[2021-03-23] MEDS: CHLORHEXIDINE GLUCONATE 4% CLEANSER FOR DECOLONIZATION TP SCH (21:48)
[2021-03-23] MEDS ORDERED: LATANOPROST 0.005% OPHTH SOLN 2.5ML BOTTLE OU SCH (22:00)
[2021-03-24] MEDS: amLODIPine BESYLATE 2.5 MG TABLET (FP) PO SCH (00:56)
[2021-03-24] MEDS ORDERED: DOCUSATE SODIUM 100 MG CAPSULE (FP) PO PRN (01:37)
[2021-03-24] MEDS ORDERED: CALAMINE 8% TOPICAL LOTION 177 ML BOTTLE TP PRN (01:37)
[2021-03-24] MEDS: INSULIN SLIDING SCALE (NOVOLOG) 1 VIAL SQ SCH ×4 (06:20→21:59)
[2021-03-24] MEDS: INSULIN (LEVEMIR) 100 UNITS/ML UNITS SQ SCH ×2 (06:25→21:59)
[2021-03-24] MEDS: LOSARTAN POTASSIUM 50 MG TABLET PO SCH (09:19)
[2021-03-24] MEDS: CARVEDILOL 6.25 MG TABLET (FP) PO SCH ×2 (09:20→21:58)
[2021-03-24] MEDS: TORSEMIDE 20 MG TABLET (FP) PO SCH (09:20)
[2021-03-24] MEDS: APIXABAN 2.5 MG TABLET PO SCH ×2 (09:20→21:58)
[2021-03-24] MEDS: valACYclovir HCL 500 MG TABLET (FP) PO SCH (09:20)
[2021-03-24] MEDS: traMADol HCL 50 MG TABLET PO PRN ×2 (09:21→22:06)
[2021-03-24] MEDS: FINASTERIDE 5 MG TABLET (FP) PO SCH (09:21)
[2021-03-24] MEDS: POLYETHYLENE GLYCOL (HEALTHYLAX) 3350 17 GM PACKET PO SCH ×2 (09:22→21:58)
[2021-03-24] MEDS: PANTOPRAZOLE SODIUM 40 MG VIAL IVPUSH SCH (09:22)
[2021-03-24] MEDS ORDERED: MUPIROCIN 2% TOPICAL OINTMENT FOR DECOLONIZATION NS SCH (10:00)
[2021-03-24] MEDS ORDERED: TORSEMIDE 20 MG TABLET (FP) PO SCH (10:00)
[2021-03-24 13:26] LABS: CALCIUM 7.6 mg/dL (8.5-10.1)
[2021-03-24 13:27] LABS: BLOOD UREA NITROGEN 57.2 mg/dL (7-18)
[2021-03-24] MEDS: SENNOSIDES 8.6MG TABLET (FP) PO SCH (21:58)
[2021-03-24] MEDS: LATANOPROST 0.005% OPHTH SOLN 2.5ML BOTTLE OU SCH (22:07)
[2021-03-25] MEDS: INSULIN SLIDING SCALE (NOVOLOG) 1 VIAL SQ SCH ×4 (06:08→21:26)
[2021-03-25] MEDS: INSULIN (LEVEMIR) 100 UNITS/ML UNITS SQ SCH ×3 (06:08→21:26)
[2021-03-25 07:15] LABS: BLOOD UREA NITROGEN 64.2 mg/dL (7-18); CALCIUM 7.8 mg/dL (8.5-10.1); MAGNESIUM 2.2 mg/dL (1.8-2.4)
[2021-03-25 07:19] LABS: CREATININE 2.1 mg/dL (0.55-1.3); PHOSPHOROUS 3.1 mg/dL (2.5-4.9)
[2021-03-25] MEDS: valACYclovir HCL 500 MG TABLET (FP) PO SCH (11:09)
[2021-03-25] MEDS: CARVEDILOL 6.25 MG TABLET (FP) PO SCH ×2 (11:10→21:26)
[2021-03-25] MEDS: LOSARTAN POTASSIUM 50 MG TABLET PO SCH (11:10)
[2021-03-25] MEDS: FINASTERIDE 5 MG TABLET (FP) PO SCH (11:11)
[2021-03-25] MEDS: APIXABAN 2.5 MG TABLET PO SCH ×2 (11:12→21:25)
[2021-03-25] MEDS: TORSEMIDE 20 MG TABLET (FP) PO SCH (11:13)
[2021-03-25] MEDS: POLYETHYLENE GLYCOL (HEALTHYLAX) 3350 17 GM PACKET PO SCH ×2 (11:13→21:26)
[2021-03-25] MEDS: PANTOPRAZOLE SODIUM 40 MG VIAL IVPUSH SCH (11:13)
[2021-03-25] MEDS: traMADol HCL 50 MG TABLET PO PRN ×2 (11:15→21:25)
[2021-03-25] MEDS: LATANOPROST 0.005% OPHTH SOLN 2.5ML BOTTLE OU SCH (21:27)
[2021-03-25] MEDS: SENNOSIDES 8.6MG TABLET (FP) PO SCH (23:03)
[2021-03-26] MEDS: traMADol HCL 50 MG TABLET PO PRN ×2 (05:31→13:23)
[2021-03-26] MEDS: INSULIN (LEVEMIR) 100 UNITS/ML UNITS SQ SCH ×2 (06:46→21:22)
[2021-03-26] MEDS: INSULIN SLIDING SCALE (NOVOLOG) 1 VIAL SQ SCH ×4 (06:46→21:22)
[2021-03-26] MEDS: PANTOPRAZOLE 40 MG TABLET PO SCH (09:14)
[2021-03-26] MEDS: APIXABAN 2.5 MG TABLET PO SCH ×2 (09:14→21:20)
[2021-03-26] MEDS: FINASTERIDE 5 MG TABLET (FP) PO SCH (09:14)
[2021-03-26] MEDS: LOSARTAN POTASSIUM 50 MG TABLET PO SCH (09:14)
[2021-03-26] MEDS: TORSEMIDE 20 MG TABLET (FP) PO SCH (09:15)
[2021-03-26] MEDS: CARVEDILOL 6.25 MG TABLET (FP) PO SCH ×2 (09:15→21:20)
[2021-03-26] MEDS: POLYETHYLENE GLYCOL (HEALTHYLAX) 3350 17 GM PACKET PO SCH ×2 (09:15→21:22)
[2021-03-26] MEDS: valACYclovir HCL 500 MG TABLET (FP) PO SCH (09:15)
[2021-03-26 14:59] VITALS: BMI 25.2
[2021-03-26] MEDS: ACETAMINOPHEN WITH CODEINE 300MG/30MG TABLET PO PRN (18:28)
[2021-03-26] MEDS ORDERED: traMADol HCL 50 MG TABLET PO ONE (20:24)
[2021-03-26] MEDS: SENNOSIDES 8.6MG TABLET (FP) PO SCH (21:20)
[2021-03-26] MEDS: LATANOPROST 0.005% OPHTH SOLN 2.5ML BOTTLE OU SCH (21:23)
[2021-03-27] MEDS: INSULIN SLIDING SCALE (NOVOLOG) 1 VIAL SQ SCH ×4 (06:23→21:01)
[2021-03-27] MEDS: INSULIN (LEVEMIR) 100 UNITS/ML UNITS SQ SCH ×2 (06:23→21:01)
[2021-03-27] MEDS ORDERED: DEXTROSE 4 GM TAB.CHEW PO ONE (06:55)
[2021-03-27] MEDS ORDERED: DEXTROSE 4 GM TAB.CHEW PO PRN (07:09)
[2021-03-27 09:08] LABS: BASO % 0.4 % (0-2.0); EOS % 2.8 % (0-4.5); HEMATOCRIT 39.8 % (35.4-49); HEMOGLOBIN 13.9 GM/dL (11.7-16.9); MCH 35.7 pg (25.7-33.7); MCHC 34.8 g/dl (32.0-35.9); MEAN CELL VOLUME 102.3 fl (80-96); MEAN PLT VOLUME 9.6 fl (7.5-11.1); MONO % 9.1 % (3.8-10.2); NEUT % 64.7 % (42.8-82.8); PLATELET COUNT 137 10^3/uL (134-434); RBC 3.89 M/mm3 (4.00-5.60); WHITE BLOOD COUNT 7.4 K/mm3 (4.0-10.0)
[2021-03-27] MEDS: APIXABAN 2.5 MG TABLET PO SCH ×2 (09:23→21:01)
[2021-03-27] MEDS: valACYclovir HCL 500 MG TABLET (FP) PO SCH (09:23)
[2021-03-27] MEDS: FINASTERIDE 5 MG TABLET (FP) PO SCH (09:23)
[2021-03-27] MEDS: TORSEMIDE 20 MG TABLET (FP) PO SCH (09:23)
[2021-03-27] MEDS: LOSARTAN POTASSIUM 50 MG TABLET PO SCH (09:23)
[2021-03-27] MEDS: PANTOPRAZOLE 40 MG TABLET PO SCH (09:23)
[2021-03-27] MEDS: POLYETHYLENE GLYCOL (HEALTHYLAX) 3350 17 GM PACKET PO SCH ×2 (09:23→21:01)
[2021-03-27] MEDS: CARVEDILOL 6.25 MG TABLET (FP) PO SCH ×2 (09:23→21:01)
[2021-03-27 09:27] LABS: CALCIUM 8.7 mg/dL (8.5-10.1)
[2021-03-27 09:28] LABS: BLOOD UREA NITROGEN 56.4 mg/dL (7-18)
[2021-03-27] MEDS: ACETAMINOPHEN 1000 MG/100 ML VIAL (NON FORMULARY) IVPB PRN (19:00)
[2021-03-27] MEDS: SENNOSIDES 8.6MG TABLET (FP) PO SCH (21:01)
[2021-03-27] MEDS: LATANOPROST 0.005% OPHTH SOLN 2.5ML BOTTLE OU SCH (21:01)
[2021-03-28] MEDS: INSULIN SLIDING SCALE (NOVOLOG) 1 VIAL SQ SCH ×4 (06:31→21:45)
[2021-03-28] MEDS: INSULIN (LEVEMIR) 100 UNITS/ML UNITS SQ SCH ×2 (06:31→21:52)
[2021-03-28] MEDS: valACYclovir HCL 500 MG TABLET (FP) PO SCH (09:52)
[2021-03-28] MEDS: PANTOPRAZOLE 40 MG TABLET PO SCH (09:52)
[2021-03-28] MEDS: TORSEMIDE 20 MG TABLET (FP) PO SCH (09:52)
[2021-03-28] MEDS: CARVEDILOL 6.25 MG TABLET (FP) PO SCH ×2 (09:52→21:44)
[2021-03-28] MEDS: APIXABAN 2.5 MG TABLET PO SCH ×2 (09:52→21:44)
[2021-03-28] MEDS: LOSARTAN POTASSIUM 50 MG TABLET PO SCH (09:52)
[2021-03-28] MEDS: FINASTERIDE 5 MG TABLET (FP) PO SCH (09:52)
[2021-03-28] MEDS: POLYETHYLENE GLYCOL (HEALTHYLAX) 3350 17 GM PACKET PO SCH ×2 (09:52→21:45)
[2021-03-28] MEDS: ACETAMINOPHEN WITH CODEINE 300MG/30MG TABLET PO PRN (10:39)
[2021-03-28] MEDS: ACETAMINOPHEN 1000 MG/100 ML VIAL (NON FORMULARY) IVPB PRN ×2 (12:34→18:28)
[2021-03-28] MEDS: SENNOSIDES 8.6MG TABLET (FP) PO SCH (21:44)
[2021-03-28] MEDS: LATANOPROST 0.005% OPHTH SOLN 2.5ML BOTTLE OU SCH (21:46)
[2021-03-29] MEDS: ACETAMINOPHEN WITH CODEINE 300MG/30MG TABLET PO PRN ×2 (05:44→18:53)
[2021-03-29] MEDS: INSULIN (LEVEMIR) 100 UNITS/ML UNITS SQ SCH ×2 (06:03→21:21)
[2021-03-29] MEDS: INSULIN SLIDING SCALE (NOVOLOG) 1 VIAL SQ SCH ×4 (06:03→21:21)
[2021-03-29 07:25] LABS: BASO % 0.6 % (0-2.0); EOS % 4.7 % (0-4.5); HEMATOCRIT 36.3 % (35.4-49); HEMOGLOBIN 12.9 GM/dL (11.7-16.9); LYMPH % 27.1 % (8-40); MCH 36.2 pg (25.7-33.7); MCHC 35.5 g/dl (32.0-35.9); MEAN CELL VOLUME 101.9 fl (80-96); MEAN PLT VOLUME 9.3 fl (7.5-11.1); MONO % 10.2 % (3.8-10.2); NEUT % 57.4 % (42.8-82.8); PLATELET COUNT 138 10^3/uL (134-434); RBC 3.57 M/mm3 (4.00-5.60); RDW 13.9 % (11.9-15.9); WHITE BLOOD COUNT 6.5 K/mm3 (4.0-10.0)
[2021-03-29 07:49] LABS: BLOOD UREA NITROGEN 58.4 mg/dL (7-18); CALCIUM 8.5 mg/dL (8.5-10.1)
[2021-03-29 07:53] LABS: CREATININE 2.1 mg/dL (0.55-1.3)
[2021-03-29] MEDS: POLYETHYLENE GLYCOL (HEALTHYLAX) 3350 17 GM PACKET PO SCH ×2 (10:34→21:21)
[2021-03-29] MEDS: valACYclovir HCL 500 MG TABLET (FP) PO SCH (10:35)
[2021-03-29] MEDS: APIXABAN 2.5 MG TABLET PO SCH ×2 (10:35→21:21)
[2021-03-29] MEDS: FINASTERIDE 5 MG TABLET (FP) PO SCH (10:35)
[2021-03-29] MEDS: TORSEMIDE 20 MG TABLET (FP) PO SCH (10:35)
[2021-03-29] MEDS: PANTOPRAZOLE 40 MG TABLET PO SCH (10:35)
[2021-03-29] MEDS: LOSARTAN POTASSIUM 50 MG TABLET PO SCH (10:35)
[2021-03-29] MEDS: CARVEDILOL 6.25 MG TABLET (FP) PO SCH ×2 (10:35→21:21)
[2021-03-29] MEDS: SENNOSIDES 8.6MG TABLET (FP) PO SCH (21:21)
[2021-03-29] MEDS: LATANOPROST 0.005% OPHTH SOLN 2.5ML BOTTLE OU SCH (21:22)
[2021-03-30] MEDS: INSULIN (LEVEMIR) 100 UNITS/ML UNITS SQ SCH (06:03)
[2021-03-30] MEDS: INSULIN SLIDING SCALE (NOVOLOG) 1 VIAL SQ SCH ×3 (06:03→17:17)
[2021-03-30 07:12] LABS: HEMATOCRIT 36.7 % (35.4-49); HEMOGLOBIN 12.9 GM/dL (11.7-16.9); MCH 36.2 pg (25.7-33.7); MCHC 35.2 g/dl (32.0-35.9); MEAN CELL VOLUME 102.7 fl (80-96); MEAN PLT VOLUME 8.8 fl (7.5-11.1); PLATELET COUNT 146 10^3/uL (134-434); RBC 3.58 M/mm3 (4.00-5.60); RDW 13.8 % (11.9-15.9); WHITE BLOOD COUNT 7.7 K/mm3 (4.0-10.0)
[2021-03-30 07:36] LABS: ALBUMIN 2.9 g/dl (3.4-5.0); BLOOD UREA NITROGEN 47.1 mg/dL (7-18); CALCIUM 8.6 mg/dL (8.5-10.1); MAGNESIUM 2.4 mg/dL (1.8-2.4)
[2021-03-30 07:39] LABS: CREATININE 1.9 mg/dL (0.55-1.3)
[2021-03-30 07:40] LABS: PHOSPHOROUS 2.9 mg/dL (2.5-4.9)
[2021-03-30 07:41] LABS: BILIRUBIN,TOTAL 1.3 mg/dL (0.2-1); TOT PROT 6.2 g/dl (6.4-8.2)
[2021-03-30] MEDS: LOSARTAN POTASSIUM 50 MG TABLET PO SCH (10:10)
[2021-03-30] MEDS: CARVEDILOL 6.25 MG TABLET (FP) PO SCH (10:10)
[2021-03-30] MEDS: valACYclovir HCL 500 MG TABLET (FP) PO SCH (10:11)
[2021-03-30] MEDS: FINASTERIDE 5 MG TABLET (FP) PO SCH (10:12)
[2021-03-30] MEDS: POLYETHYLENE GLYCOL (HEALTHYLAX) 3350 17 GM PACKET PO SCH (10:12)
[2021-03-30] MEDS: APIXABAN 2.5 MG TABLET PO SCH (10:12)
[2021-03-30] MEDS: TORSEMIDE 20 MG TABLET (FP) PO SCH (10:15)
[2021-03-30] MEDS: PANTOPRAZOLE 40 MG TABLET PO SCH (10:15)
[2021-03-30] MEDS: ACETAMINOPHEN WITH CODEINE 300MG/30MG TABLET PO PRN ×2 (10:30→17:11)
[2021-03-30 18:49] VITALS: BP 161/75; PULSE 74; TEMP 98.5
== END 2021-03-30 19:21 | disposition home or self-care (01) | DRG 305 ==
LOC: JER 06:07 → JERBED 10:58 → JICU 12:50 → J4S 03-24 01:32
PROVIDERS: ADMIT Family Medicine; ATTEND Family Medicine
DX: I16.1 Hypertensive emergency (principal); I50.22 Chronic systolic (congestive) heart failure; N18.4 Chronic kidney disease, stage 4 (severe); N17.9 Acute kidney failure, unspecified; K56.609 Unspecified intestinal obstruction, unspecified as to partial versus complete obstruction; E87.1 Hypo-osmolality and hyponatremia; C77.2 Secondary and unspecified malignant neoplasm of intra-abdominal lymph nodes; I13.0 Hypertensive heart and chronic kidney disease with heart failure and stage 1 through stage 4 chronic kidney disease, or unspecified chronic kidney disease; Z79.01 Long term (current) use of anticoagulants; E78.5 Hyperlipidemia, unspecified; E11.9 Type 2 diabetes mellitus without complications; I25.10 Atherosclerotic heart disease of native coronary artery without angina pectoris; Z95.1 Presence of aortocoronary bypass graft; B02.9 Zoster without complications; Z79.4 Long term (current) use of insulin; I48.0 Paroxysmal atrial fibrillation; E11.22 Type 2 diabetes mellitus with diabetic chronic kidney disease; D69.6 Thrombocytopenia, unspecified; N40.0 Benign prostatic hyperplasia without lower urinary tract symptoms; H40.9 Unspecified glaucoma; K59.09 Other constipation; E11.65 Type 2 diabetes mellitus with hyperglycemia; Z85.05 Personal history of malignant neoplasm of liver
CPT/HCPCS: 36415; 71045-TC-FY; 74018-TC-FY; 74176-TC; 74190-TC-FY; 80048; 80053; 81003; 82010; 82140; 82550; 82803; 82962; 83605; 83690; 83735; 83880; 84100; 84443; 84484; 85025; 85027; 85610; 85730; 86850; 86900; 86901; 87086; 93005; 93010; 94660; 97116-GP; 97161-GP; 99285-25; C9803; J0131; Q9967; U0003; U0005

== ENCOUNTER 2021-05-08 17:30 | Emergency (ER) | payer OTHER ==
[2021-05-08 17:37] VITALS: BMI 24.1
[2021-05-08] MEDS ORDERED: LIDOCAINE 1%/EPI 1:100000 (20 ML MULTI DOSE VIAL) ONE (20:15)
[2021-05-08] MEDS ORDERED: DIPHTH,PERTUSS(ACELL),TET 0.5 ML DISP.SYRIN IM ONE ×2 (22:10)
[2021-05-08 22:17] VITALS: BP 154/41; PULSE 62; TEMP 98.6
== END 2021-05-08 22:19 | disposition home or self-care (01) ==
LOC: JER 17:30
PROC: 3E0234Z Introduction of Serum, Toxoid and Vaccine into Muscle, Percutaneous Approach (ICD-10-PCS; principal; 2021-05-08)
DX: S51.812A Laceration without foreign body of left forearm, initial encounter (principal); W22.8XXA Striking against or struck by other objects, initial encounter; Y92.9 Unspecified place or not applicable
CPT/HCPCS: 82962; 90471; 90715; 99283-25

== ENCOUNTER 2021-05-14 02:33 | Emergency (ER) | payer OTHER ==
[2021-05-14 02:56] VITALS: BP 118/53; PULSE 82; TEMP 98.2; BMI 23.6
[2021-05-14] MEDS ORDERED: LIDOCAINE 1%/EPI 1:100000 (20 ML MULTI DOSE VIAL) ONE (03:20)
== END 2021-05-14 04:29 | disposition home or self-care (01) ==
LOC: JER 02:33
DX: S51.812A Laceration without foreign body of left forearm, initial encounter (principal)
CPT/HCPCS: 99283-25

== ENCOUNTER 2021-10-18 12:23 | Inpatient (IN) | payer OTHER ==
[2021-10-18 13:06] LABS: BASO % 0.5 % (0-2.0); EOS % 2.8 % (0-4.5); HEMATOCRIT 41.4 % (35.4-49); HEMOGLOBIN 13.7 GM/dL (11.7-16.9); LYMPH % 16.4 % (8-40); MCH 34.4 pg (25.7-33.7); MCHC 33.2 g/dl (32.0-35.9); MEAN CELL VOLUME 103.7 fl (80-96); MEAN PLT VOLUME 10.2 fl (7.5-11.1); MONO % 8.7 % (3.8-10.2); NEUT % 71.6 % (42.8-82.8); PLATELET COUNT 102 10^3/uL (134-434); RBC 3.99 M/mm3 (4.00-5.60); RDW 14.2 % (11.9-15.9); WHITE BLOOD COUNT 5.6 K/mm3 (4.0-10.0)
[2021-10-18 13:26] LABS: CHLORIDE 98 mmol/L (98-107); SODIUM 137 mmol/L (136-145)
[2021-10-18] MEDS ORDERED: FUROSEMIDE 40 MG/4 ML INJECTABLE VIAL IVPUSH ONE (13:28)
[2021-10-18 13:29] LABS: ALBUMIN 3.4 g/dl (3.4-5.0); ANION GAP 7 MMOL/L (8-16); BLOOD UREA NITROGEN 81.4 mg/dL (7-18); CALCIUM 8.6 mg/dL (8.5-10.1); CO2 31 mmol/L (21-32); GLUCOSE,RANDOM 367 mg/dL (74-106); MAGNESIUM 2.6 mg/dL (1.8-2.4)
[2021-10-18] MEDS ORDERED: FUROSEMIDE 40 MG/4 ML INJECTABLE VIAL ONE (13:31)
[2021-10-18 13:32] LABS: CREATININE 2.3 mg/dL (0.55-1.3); PHOSPHOROUS 4.8 mg/dL (2.5-4.9); SGOT/AST 23 U/L (15-37); SGPT/ALT 21 U/L (13-61)
[2021-10-18 13:34] LABS: BILIRUBIN,TOTAL 1.1 mg/dL (0.2-1); TOT PROT 7.1 g/dl (6.4-8.2)
[2021-10-18 13:35] LABS: ALK PHOS 129 U/L (45-117)
[2021-10-18 13:37] LABS: N-TERMINAL BNP 4423.9 pg/ml (5-450)
[2021-10-18] MEDS ORDERED: traMADol HCL 50 MG TABLET PO PRN (16:23)
[2021-10-18] MEDS: CARVEDILOL 6.25 MG TABLET (FP) PO SCH (21:23)
[2021-10-18] MEDS: LOSARTAN POTASSIUM 50 MG TABLET PO SCH (21:23)
[2021-10-18] MEDS: POLYETHYLENE GLYCOL (HEALTHYLAX) 3350 17 GM PACKET PO SCH (21:23)
[2021-10-18] MEDS: ATORVASTATIN CA 10 MG TABLET (FP) PO SCH (21:23)
[2021-10-18] MEDS: INSULIN (NOVOLOG) ASPART 100 UNITS/ML 10ML VIAL SQ SCH (21:31)
[2021-10-19] MEDS: INSULIN (NOVOLOG) ASPART 100 UNITS/ML 10ML VIAL SQ SCH ×4 (06:43→21:43)
[2021-10-19 07:28] LABS: BASO % 0.7 % (0-2.0); EOS % 3.6 % (0-4.5); HEMATOCRIT 36.5 % (35.4-49); HEMOGLOBIN 12.5 GM/dL (11.7-16.9); LYMPH % 25.3 % (8-40); MCH 35.1 pg (25.7-33.7); MCHC 34.4 g/dl (32.0-35.9); MEAN PLT VOLUME 10.2 fl (7.5-11.1); MONO % 10.1 % (3.8-10.2); NEUT % 60.3 % (42.8-82.8); PLATELET COUNT 82 10^3/uL (134-434); RBC 3.58 M/mm3 (4.00-5.60); RDW 14.5 % (11.9-15.9); WHITE BLOOD COUNT 4.7 K/mm3 (4.0-10.0)
[2021-10-19 07:47] LABS: ALBUMIN 2.9 g/dl (3.4-5.0); BLOOD UREA NITROGEN 77.9 mg/dL (7-18); CALCIUM 8.4 mg/dL (8.5-10.1); MAGNESIUM 2.5 mg/dL (1.8-2.4)
[2021-10-19 07:51] LABS: PHOSPHOROUS 5.2 mg/dL (2.5-4.9)
[2021-10-19 07:52] LABS: TOT PROT 6.2 g/dl (6.4-8.2)
[2021-10-19] MEDS ORDERED: FUROSEMIDE 40 MG/4 ML INJECTABLE VIAL IVPUSH SCH (10:00)
[2021-10-19] MEDS: PANTOPRAZOLE 40 MG TABLET PO SCH (10:03)
[2021-10-19] MEDS: FUROSEMIDE 40 MG/4 ML INJECTABLE VIAL IVPUSH SCH (10:03)
[2021-10-19] MEDS: CARVEDILOL 6.25 MG TABLET (FP) PO SCH ×2 (10:03→21:42)
[2021-10-19] MEDS: POLYETHYLENE GLYCOL (HEALTHYLAX) 3350 17 GM PACKET PO SCH ×2 (10:03→21:42)
[2021-10-19] MEDS: FINASTERIDE 5 MG TABLET (FP) PO SCH (10:03)
[2021-10-19] MEDS ORDERED: INSULIN (NOVOLOG) ASPART 100 UNITS/ML 10ML VIAL ONE (11:12)
[2021-10-19 12:25] LABS: INR 1.56 (0.83-1.09)
[2021-10-19 12:28] LABS: ACTIVATED PTT 37.1 SECONDS (25.2-36.5)
[2021-10-19] MEDS: LOSARTAN POTASSIUM 50 MG TABLET PO SCH (21:42)
[2021-10-20] MEDS: INSULIN (NOVOLOG) ASPART 100 UNITS/ML 10ML VIAL SQ SCH ×5 (06:36→21:20)
[2021-10-20 07:48] LABS: HEMATOCRIT 35.5 % (35.4-49); HEMOGLOBIN 11.7 GM/dL (11.7-16.9); MCH 34.4 pg (25.7-33.7); MEAN CELL VOLUME 104.1 fl (80-96); MEAN PLT VOLUME 10.5 fl (7.5-11.1); PLATELET COUNT 81 10^3/uL (134-434); RBC 3.41 M/mm3 (4.00-5.60); RDW 14.3 % (11.9-15.9); WHITE BLOOD COUNT 5.3 K/mm3 (4.0-10.0)
[2021-10-20 07:49] LABS: CALCIUM 8.3 mg/dL (8.5-10.1)
[2021-10-20 07:50] LABS: BLOOD UREA NITROGEN 80.8 mg/dL (7-18)
[2021-10-20 07:53] LABS: CREATININE 2.1 mg/dL (0.55-1.3)
[2021-10-20 08:43] LABS: INR 1.39 (0.83-1.09)
[2021-10-20 08:46] LABS: ACTIVATED PTT 35.4 SECONDS (25.2-36.5)
[2021-10-20] MEDS: PANTOPRAZOLE 40 MG TABLET PO SCH (10:04)
[2021-10-20] MEDS: CARVEDILOL 6.25 MG TABLET (FP) PO SCH ×2 (10:04→21:07)
[2021-10-20] MEDS: FINASTERIDE 5 MG TABLET (FP) PO SCH (10:04)
[2021-10-20] MEDS: POLYETHYLENE GLYCOL (HEALTHYLAX) 3350 17 GM PACKET PO SCH ×2 (10:05→21:09)
[2021-10-20] MEDS: FUROSEMIDE 40 MG/4 ML INJECTABLE VIAL IVPUSH SCH (10:05)
[2021-10-20] MEDS ORDERED: INSULIN (NOVOLOG) ASPART 100 UNITS/ML 10ML VIAL ONE ×2 (13:45→21:18)
[2021-10-20 15:13] LABS: BF WBC & OTHER NUCLEATED CELLS 119 /mm3
[2021-10-20 15:34] LABS: BODY FLUID MACROPHAGES 22 %; BODY FLUID MESOTHELIAL 3 %; BODY FLUID MONOCYTE 4 %
[2021-10-20] MEDS: LOSARTAN POTASSIUM 50 MG TABLET PO SCH (21:08)
[2021-10-20] MEDS: ATORVASTATIN CA 10 MG TABLET (FP) PO SCH (21:08)
[2021-10-20] MEDS: INSULIN (LEVEMIR) 100 UNITS/ML UNITS SQ SCH (21:19)
[2021-10-21] MEDS: INSULIN (NOVOLOG) ASPART 100 UNITS/ML 10ML VIAL SQ SCH ×4 (06:17→23:01)
[2021-10-21 07:23] LABS: CALCIUM 8.4 mg/dL (8.5-10.1)
[2021-10-21 07:24] LABS: BLOOD UREA NITROGEN 83.2 mg/dL (7-18)
[2021-10-21 07:27] LABS: CREATININE 2.3 mg/dL (0.55-1.3)
[2021-10-21] MEDS: PANTOPRAZOLE 40 MG TABLET PO SCH (10:26)
[2021-10-21] MEDS: CARVEDILOL 6.25 MG TABLET (FP) PO SCH ×2 (10:26→23:04)
[2021-10-21] MEDS: POLYETHYLENE GLYCOL (HEALTHYLAX) 3350 17 GM PACKET PO SCH ×2 (10:26→22:59)
[2021-10-21] MEDS: FINASTERIDE 5 MG TABLET (FP) PO SCH (10:26)
[2021-10-21] MEDS: FUROSEMIDE 40 MG/4 ML INJECTABLE VIAL IVPUSH SCH (10:27)
[2021-10-21] MEDS ORDERED: FUROSEMIDE 40 MG/4 ML INJECTABLE VIAL IVPB ONE (14:08)
[2021-10-21] MEDS ORDERED: oxyCODONE HCL 5 MG TABLET PO PRN (18:05)
[2021-10-21] MEDS: INSULIN (LEVEMIR) 100 UNITS/ML UNITS SQ SCH (23:00)
[2021-10-21] MEDS: ATORVASTATIN CA 10 MG TABLET (FP) PO SCH (23:04)
[2021-10-22] MEDS: INSULIN (NOVOLOG) ASPART 100 UNITS/ML 10ML VIAL SQ SCH ×4 (06:26→22:26)
[2021-10-22] MEDS ORDERED: DEXTROSE 50%-WATER - 25 GM/50 ML VIAL IVPUSH ONE (06:52)
[2021-10-22] MEDS ORDERED: DEXTROSE 50%-WATER 25 GM/50 ML DISP.SYRIN ONE (06:54)
[2021-10-22 06:55] LABS: BASO % 0.5 % (0-2.0); EOS % 2.8 % (0-4.5); HEMATOCRIT 35.2 % (35.4-49); HEMOGLOBIN 12.4 GM/dL (11.7-16.9); LYMPH % 22.1 % (8-40); MCH 35.7 pg (25.7-33.7); MCHC 35.1 g/dl (32.0-35.9); MEAN CELL VOLUME 101.6 fl (80-96); MEAN PLT VOLUME 9.9 fl (7.5-11.1); MONO % 17.4 % (3.8-10.2); NEUT % 57.2 % (42.8-82.8); PLATELET COUNT 84 10^3/uL (134-434); RBC 3.47 M/mm3 (4.00-5.60); RDW 14.1 % (11.9-15.9); WHITE BLOOD COUNT 6.4 K/mm3 (4.0-10.0)
[2021-10-22 07:14] LABS: CHLORIDE 102 mmol/L (98-107); SODIUM 138 mmol/L (136-145)
[2021-10-22 07:19] LABS: ALBUMIN 2.6 g/dl (3.4-5.0); ANION GAP 5 MMOL/L (8-16); BLOOD UREA NITROGEN 87.1 mg/dL (7-18); CALCIUM 8.1 mg/dL (8.5-10.1); CO2 31 mmol/L (21-32); MAGNESIUM 2.7 mg/dL (1.8-2.4)
[2021-10-22 07:21] LABS: SGPT/ALT 18 U/L (13-61)
[2021-10-22 07:22] LABS: CREATININE 2.4 mg/dL (0.55-1.3); PHOSPHOROUS 4.1 mg/dL (2.5-4.9); SGOT/AST 14 U/L (15-37)
[2021-10-22 07:24] LABS: ALK PHOS 104 U/L (45-117)
[2021-10-22 07:29] LABS: GLUCOSE,RANDOM 38 mg/dL (74-106)
[2021-10-22] MEDS: PANTOPRAZOLE 40 MG TABLET PO SCH (09:04)
[2021-10-22] MEDS: FINASTERIDE 5 MG TABLET (FP) PO SCH (09:04)
[2021-10-22] MEDS: CARVEDILOL 6.25 MG TABLET (FP) PO SCH ×2 (09:04→22:26)
[2021-10-22] MEDS: POLYETHYLENE GLYCOL (HEALTHYLAX) 3350 17 GM PACKET PO SCH ×2 (09:04→22:26)
[2021-10-22] MEDS: FUROSEMIDE 40 MG/4 ML INJECTABLE VIAL IVPUSH SCH (09:05)
[2021-10-22 13:07] LABS: BODY FLUID ALBUMIN 1.3 g/dL (Not Estab.)
[2021-10-22] MEDS: ACETAMINOPHEN 325 MG TABLET (FP) PO PRN (18:10)
[2021-10-23] MEDS: INSULIN (NOVOLOG) ASPART 100 UNITS/ML 10ML VIAL SQ SCH ×4 (06:43→21:37)
[2021-10-23 08:06] LABS: ALBUMIN 2.6 g/dl (3.4-5.0); BLOOD UREA NITROGEN 92.1 mg/dL (7-18); CREATININE 2.3 mg/dL (0.55-1.3)
[2021-10-23 08:08] LABS: CALCIUM 8.3 mg/dL (8.5-10.1)
[2021-10-23] MEDS: SODIUM ZIRCONIUM CYCLOSILICATE (LOKELMA) 5 GM PACKET PO SCH ×2 (10:54→21:36)
[2021-10-23] MEDS: FINASTERIDE 5 MG TABLET (FP) PO SCH (10:54)
[2021-10-23] MEDS: CARVEDILOL 6.25 MG TABLET (FP) PO SCH (10:54)
[2021-10-23] MEDS: PANTOPRAZOLE 40 MG TABLET PO SCH (10:54)
[2021-10-23] MEDS: FUROSEMIDE 40 MG/4 ML INJECTABLE VIAL IVPUSH SCH (10:54)
[2021-10-23] MEDS: POLYETHYLENE GLYCOL (HEALTHYLAX) 3350 17 GM PACKET PO SCH ×2 (10:54→21:36)
[2021-10-24] MEDS: INSULIN (NOVOLOG) ASPART 100 UNITS/ML 10ML VIAL SQ SCH ×4 (06:16→21:54)
[2021-10-24 08:18] LABS: CALCIUM 8.2 mg/dL (8.5-10.1)
[2021-10-24 08:19] LABS: ALBUMIN 2.5 g/dl (3.4-5.0); BLOOD UREA NITROGEN 93.6 mg/dL (7-18); MAGNESIUM 2.9 mg/dL (1.8-2.4)
[2021-10-24 08:20] LABS: CREATININE 2.3 mg/dL (0.55-1.3)
[2021-10-24 08:21] LABS: BILIRUBIN,TOTAL 1.1 mg/dL (0.2-1)
[2021-10-24 08:22] LABS: TOT PROT 5.8 g/dl (6.4-8.2)
[2021-10-24 08:33] LABS: HEMATOCRIT 35.8 % (35.4-49); MCH 34.5 pg (25.7-33.7); MCHC 33.6 g/dl (32.0-35.9); MEAN CELL VOLUME 102.8 fl (80-96); PLATELET COUNT 88 10^3/uL (134-434); RBC 3.48 M/mm3 (4.00-5.60); RDW 14.2 % (11.9-15.9); WHITE BLOOD COUNT 5.9 K/mm3 (4.0-10.0)
[2021-10-24] MEDS: FINASTERIDE 5 MG TABLET (FP) PO SCH (10:01)
[2021-10-24] MEDS: TORSEMIDE 20 MG TABLET (FP) PO SCH (10:01)
[2021-10-24] MEDS: PANTOPRAZOLE 40 MG TABLET PO SCH (10:01)
[2021-10-24] MEDS: SODIUM ZIRCONIUM CYCLOSILICATE (LOKELMA) 5 GM PACKET PO SCH (10:01)
[2021-10-24] MEDS: POLYETHYLENE GLYCOL (HEALTHYLAX) 3350 17 GM PACKET PO SCH ×2 (10:01→21:54)
[2021-10-24] MEDS: ATORVASTATIN CA 10 MG TABLET (FP) PO SCH (21:54)
[2021-10-25] MEDS: INSULIN (LEVEMIR) 100 UNITS/ML UNITS SQ SCH (06:16)
[2021-10-25] MEDS: INSULIN SLIDING SCALE (NOVOLOG) 1 VIAL SQ SCH ×4 (06:17→21:54)
[2021-10-25 07:29] LABS: CALCIUM 8.4 mg/dL (8.5-10.1)
[2021-10-25 07:30] LABS: BLOOD UREA NITROGEN 101.2 mg/dL (7-18)
[2021-10-25 07:33] LABS: CREATININE 2.5 mg/dL (0.55-1.3)
[2021-10-25] MEDS: TORSEMIDE 20 MG TABLET (FP) PO SCH (11:10)
[2021-10-25] MEDS: FINASTERIDE 5 MG TABLET (FP) PO SCH (11:11)
[2021-10-25] MEDS: PANTOPRAZOLE 40 MG TABLET PO SCH (11:11)
[2021-10-25] MEDS: POLYETHYLENE GLYCOL (HEALTHYLAX) 3350 17 GM PACKET PO SCH ×2 (11:13→21:49)
[2021-10-25] MEDS: CARVEDILOL 6.25 MG TABLET (FP) PO SCH (21:49)
[2021-10-25 22:22] VITALS: BMI 24.7
[2021-10-26] MEDS: INSULIN SLIDING SCALE (NOVOLOG) 1 VIAL SQ SCH ×4 (06:51→21:36)
[2021-10-26] MEDS: INSULIN (LEVEMIR) 100 UNITS/ML UNITS SQ SCH (06:51)
[2021-10-26] MEDS: TORSEMIDE 20 MG TABLET (FP) PO SCH (10:36)
[2021-10-26] MEDS: CARVEDILOL 6.25 MG TABLET (FP) PO SCH ×2 (10:56→21:36)
[2021-10-26] MEDS: POLYETHYLENE GLYCOL (HEALTHYLAX) 3350 17 GM PACKET PO SCH ×2 (10:58→21:36)
[2021-10-26] MEDS: FINASTERIDE 5 MG TABLET (FP) PO SCH (10:58)
[2021-10-26] MEDS: PANTOPRAZOLE 40 MG TABLET PO SCH (10:58)
[2021-10-26 11:46] LABS: ANION GAP 5 MMOL/L (8-16); CALCIUM 9.1 mg/dL (8.5-10.1); CHLORIDE 100 mmol/L (98-107); CO2 35 mmol/L (21-32); SODIUM 139 mmol/L (136-145)
[2021-10-26 11:48] LABS: GLUCOSE,RANDOM 207 mg/dL (74-106)
[2021-10-26 11:51] LABS: CREATININE 2.3 mg/dL (0.55-1.3)
[2021-10-26 12:05] LABS: BLOOD UREA NITROGEN 108.8 mg/dL (7-18)
[2021-10-27] MEDS: INSULIN SLIDING SCALE (NOVOLOG) 1 VIAL SQ SCH ×4 (06:28→21:20)
[2021-10-27] MEDS: INSULIN (LEVEMIR) 100 UNITS/ML UNITS SQ SCH (06:29)
[2021-10-27 07:35] LABS: CHLORIDE 99 mmol/L (98-107); SODIUM 138 mmol/L (136-145)
[2021-10-27 07:39] LABS: BASO % 0.4 % (0-2.0); EOS % 2.1 % (0-4.5); HEMATOCRIT 35.8 % (35.4-49); HEMOGLOBIN 12.2 GM/dL (11.7-16.9); LYMPH % 18.4 % (8-40); MCH 34.8 pg (25.7-33.7); MEAN CELL VOLUME 102.4 fl (80-96); MEAN PLT VOLUME 10.1 fl (7.5-11.1); MONO % 10.9 % (3.8-10.2); NEUT % 68.2 % (42.8-82.8); PLATELET COUNT 89 10^3/uL (134-434); WHITE BLOOD COUNT 4.9 K/mm3 (4.0-10.0)
[2021-10-27 07:40] LABS: ALBUMIN 2.7 g/dl (3.4-5.0); ANION GAP 4 MMOL/L (8-16); CALCIUM 8.8 mg/dL (8.5-10.1); CO2 35 mmol/L (21-32); GLUCOSE,RANDOM 108 mg/dL (74-106); MAGNESIUM 2.7 mg/dL (1.8-2.4)
[2021-10-27 07:42] LABS: CREATININE 2.1 mg/dL (0.55-1.3); PHOSPHOROUS 3.1 mg/dL (2.5-4.9); SGOT/AST 19 U/L (15-37); SGPT/ALT 19 U/L (13-61)
[2021-10-27 07:44] LABS: BILIRUBIN,TOTAL 1.1 mg/dL (0.2-1)
[2021-10-27 07:45] LABS: ALK PHOS 120 U/L (45-117)
[2021-10-27 07:49] LABS: BLOOD UREA NITROGEN 107.8 mg/dL (7-18)
[2021-10-27] MEDS: TORSEMIDE 20 MG TABLET (FP) PO SCH (09:19)
[2021-10-27] MEDS: CARVEDILOL 6.25 MG TABLET (FP) PO SCH ×2 (09:20→21:17)
[2021-10-27] MEDS: FINASTERIDE 5 MG TABLET (FP) PO SCH (09:20)
[2021-10-27] MEDS: PANTOPRAZOLE 40 MG TABLET PO SCH (09:21)
[2021-10-27] MEDS: POLYETHYLENE GLYCOL (HEALTHYLAX) 3350 17 GM PACKET PO SCH ×2 (09:22→21:17)
[2021-10-27 19:17] LABS: EPI CELLS 7 /uL (0-25.1); HYALINE CASTS 1 /uL (0-3.1); URINE APPEARANCE CLOUDY; URINE BILIRUBIN 1+ (NEGATIVE); URINE COLOR RED; URINE GLUCOSE (UA) 1+ (NEGATIVE); URINE KETONE NEGATIVE (NEGATIVE); URINE LEUK ESTERASE 1+ (NEGATIVE); URINE NITRITE POSITIVE (NEGATIVE); URINE PROTEIN 2+ (NEGATIVE); URINE RBC 34118 /uL (0-23.9); URINE WBC 20 /uL (0-25.8)
[2021-10-27] MEDS ORDERED: guaiFENesin/D-M SUGAR-FREE/ACLHOL-FREE 5 ML UNIT DOSE PO ONE (21:00)
[2021-10-27] MEDS: ATORVASTATIN CA 10 MG TABLET (FP) PO SCH (21:17)
[2021-10-27 21:34] LABS: URINE BACTERIA 1 /uL (0-1359)
[2021-10-28] MEDS: INSULIN SLIDING SCALE (NOVOLOG) 1 VIAL SQ SCH ×4 (06:15→22:48)
[2021-10-28] MEDS: INSULIN (LEVEMIR) 100 UNITS/ML UNITS SQ SCH (06:38)
[2021-10-28 07:58] LABS: BASO % 0.5 % (0-2.0); EOS % 0.8 % (0-4.5); HEMATOCRIT 35.1 % (35.4-49); HEMOGLOBIN 12.1 GM/dL (11.7-16.9); LYMPH % 19.7 % (8-40); MCH 34.9 pg (25.7-33.7); MCHC 34.6 g/dl (32.0-35.9); MEAN CELL VOLUME 100.9 fl (80-96); MEAN PLT VOLUME 10.9 fl (7.5-11.1); MONO % 9.3 % (3.8-10.2); NEUT % 69.7 % (42.8-82.8); PLATELET COUNT 99 10^3/uL (134-434); RBC 3.48 M/mm3 (4.00-5.60); RDW 13.9 % (11.9-15.9); WHITE BLOOD COUNT 6.3 K/mm3 (4.0-10.0)
[2021-10-28 08:14] LABS: CHLORIDE 96 mmol/L (98-107); SODIUM 134 mmol/L (136-145)
[2021-10-28 08:15] LABS: ALBUMIN 2.8 g/dl (3.4-5.0); ANION GAP 8 MMOL/L (8-16); CALCIUM 8.8 mg/dL (8.5-10.1); CO2 31 mmol/L (21-32); GLUCOSE,RANDOM 164 mg/dL (74-106)
[2021-10-28 08:17] LABS: CREATININE 2.2 mg/dL (0.55-1.3); SGPT/ALT 21 U/L (13-61)
[2021-10-28 08:19] LABS: BILIRUBIN,TOTAL 1.2 mg/dL (0.2-1); SGOT/AST 26 U/L (15-37)
[2021-10-28 08:21] LABS: ALK PHOS 129 U/L (45-117)
[2021-10-28 08:25] LABS: BLOOD UREA NITROGEN 115.8 mg/dL (7-18)
[2021-10-28] MEDS: ACETAMINOPHEN 325 MG TABLET (FP) PO PRN (10:23)
[2021-10-28] MEDS: FINASTERIDE 5 MG TABLET (FP) PO SCH (10:23)
[2021-10-28] MEDS: PANTOPRAZOLE 40 MG TABLET PO SCH (10:23)
[2021-10-28] MEDS: POLYETHYLENE GLYCOL (HEALTHYLAX) 3350 17 GM PACKET PO SCH ×2 (10:24→22:50)
[2021-10-28] MEDS: CARVEDILOL 6.25 MG TABLET (FP) PO SCH ×2 (10:24→22:45)
[2021-10-28 18:20] LABS: BF WBC & OTHER NUCLEATED CELLS 161 /mm3
[2021-10-28 20:13] LABS: BODY FLUID MONOCYTE 15 %
[2021-10-28] MEDS ORDERED: guaiFENesin/D-METHORPHAN HB 10 ML UNIT-DOSE CUPS PO PRN (23:15)
[2021-10-29] MEDS: INSULIN (LEVEMIR) 100 UNITS/ML UNITS SQ SCH (06:42)
[2021-10-29] MEDS: INSULIN SLIDING SCALE (NOVOLOG) 1 VIAL SQ SCH ×4 (06:44→21:37)
[2021-10-29] MEDS: TORSEMIDE 20 MG TABLET (FP) PO SCH (09:22)
[2021-10-29] MEDS: PANTOPRAZOLE 40 MG TABLET PO SCH (09:22)
[2021-10-29] MEDS: POLYETHYLENE GLYCOL (HEALTHYLAX) 3350 17 GM PACKET PO SCH ×2 (09:22→21:37)
[2021-10-29] MEDS: CARVEDILOL 6.25 MG TABLET (FP) PO SCH ×2 (09:23→21:37)
[2021-10-29] MEDS: FINASTERIDE 5 MG TABLET (FP) PO SCH (09:23)
[2021-10-29] MEDS ORDERED: TORSEMIDE 20 MG TABLET (FP) PO SCH (10:47)
[2021-10-29] MEDS: ACETAMINOPHEN 325 MG TABLET (FP) PO PRN (18:23)
[2021-10-29] MEDS: APIXABAN 2.5 MG TABLET PO SCH (21:37)
[2021-10-30] MEDS: INSULIN SLIDING SCALE (NOVOLOG) 1 VIAL SQ SCH ×4 (06:08→22:33)
[2021-10-30 07:43] LABS: CHLORIDE 100 mmol/L (98-107); SODIUM 140 mmol/L (136-145)
[2021-10-30 07:46] LABS: CALCIUM 8.6 mg/dL (8.5-10.1)
[2021-10-30 07:47] LABS: ANION GAP 4 MMOL/L (8-16); CO2 35 mmol/L (21-32); GLUCOSE,RANDOM 127 mg/dL (74-106)
[2021-10-30 07:50] LABS: CREATININE 2.4 mg/dL (0.55-1.3); SGOT/AST 16 U/L (15-37); SGPT/ALT 19 U/L (13-61)
[2021-10-30 07:52] LABS: BILIRUBIN,TOTAL 0.8 mg/dL (0.2-1); TOT PROT 5.3 g/dl (6.4-8.2)
[2021-10-30 07:53] LABS: ALK PHOS 117 U/L (45-117)
[2021-10-30 07:57] LABS: ALBUMIN 2.1 g/dl (3.4-5.0); BLOOD UREA NITROGEN 119.8 mg/dL (7-18)
[2021-10-30] MEDS: FINASTERIDE 5 MG TABLET (FP) PO SCH (10:27)
[2021-10-30] MEDS ORDERED: INSULIN (LEVEMIR) 100 UNITS/ML UNITS SQ ONE (10:28)
[2021-10-30] MEDS: PANTOPRAZOLE 40 MG TABLET PO SCH (10:28)
[2021-10-30] MEDS: CARVEDILOL 6.25 MG TABLET (FP) PO SCH ×2 (10:28→21:31)
[2021-10-30] MEDS: APIXABAN 2.5 MG TABLET PO SCH ×2 (10:28→21:31)
[2021-10-30] MEDS: INSULIN (LEVEMIR) 100 UNITS/ML UNITS SQ SCH (10:33)
[2021-10-30] MEDS: POLYETHYLENE GLYCOL (HEALTHYLAX) 3350 17 GM PACKET PO SCH ×2 (10:33→21:32)
[2021-10-30] MEDS: ACETAMINOPHEN 325 MG TABLET (FP) PO PRN (15:15)
[2021-10-30] MEDS: ATORVASTATIN CA 10 MG TABLET (FP) PO SCH (21:31)
[2021-10-31] MEDS: INSULIN SLIDING SCALE (NOVOLOG) 1 VIAL SQ SCH ×4 (06:11→22:47)
[2021-10-31 09:18] LABS: CHLORIDE 101 mmol/L (98-107); SODIUM 140 mmol/L (136-145)
[2021-10-31 09:27] LABS: ALBUMIN 2.2 g/dl (3.4-5.0); ANION GAP 3 MMOL/L (8-16); CALCIUM 8.6 mg/dL (8.5-10.1); CO2 36 mmol/L (21-32)
[2021-10-31 09:29] LABS: GLUCOSE,RANDOM 102 mg/dL (74-106)
[2021-10-31 09:30] LABS: CREATININE 2.3 mg/dL (0.55-1.3); SGPT/ALT 21 U/L (13-61)
[2021-10-31 09:31] LABS: SGOT/AST 17 U/L (15-37); TOT PROT 5.5 g/dl (6.4-8.2)
[2021-10-31 09:32] LABS: BILIRUBIN,TOTAL 0.7 mg/dL (0.2-1)
[2021-10-31 09:33] LABS: ALK PHOS 125 U/L (45-117)
[2021-10-31] MEDS: FINASTERIDE 5 MG TABLET (FP) PO SCH (09:47)
[2021-10-31] MEDS: CARVEDILOL 6.25 MG TABLET (FP) PO SCH ×2 (09:47→22:48)
[2021-10-31] MEDS: APIXABAN 2.5 MG TABLET PO SCH ×2 (09:47→22:48)
[2021-10-31] MEDS: POLYETHYLENE GLYCOL (HEALTHYLAX) 3350 17 GM PACKET PO SCH ×2 (09:47→22:48)
[2021-10-31] MEDS: INSULIN (LEVEMIR) 100 UNITS/ML UNITS SQ SCH (09:48)
[2021-10-31] MEDS: PANTOPRAZOLE 40 MG TABLET PO SCH (09:48)
[2021-11-01] MEDS: INSULIN SLIDING SCALE (NOVOLOG) 1 VIAL SQ SCH ×4 (06:19→22:37)
[2021-11-01] MEDS: INSULIN (LEVEMIR) 100 UNITS/ML UNITS SQ SCH (06:20)
[2021-11-01 07:41] LABS: CHLORIDE 99 mmol/L (98-107); SODIUM 138 mmol/L (136-145)
[2021-11-01 07:45] LABS: ANION GAP 4 MMOL/L (8-16); CO2 35 mmol/L (21-32); GLUCOSE,RANDOM 273 mg/dL (74-106)
[2021-11-01 07:47] LABS: CALCIUM 8.7 mg/dL (8.5-10.1)
[2021-11-01 07:48] LABS: CREATININE 2.4 mg/dL (0.55-1.3); MAGNESIUM 2.8 mg/dL (1.8-2.4); PHOSPHOROUS 2.9 mg/dL (2.5-4.9)
[2021-11-01 07:49] LABS: BLOOD UREA NITROGEN 114.1 mg/dL (7-18)
[2021-11-01] MEDS: CARVEDILOL 6.25 MG TABLET (FP) PO SCH ×2 (09:30→22:31)
[2021-11-01] MEDS: PANTOPRAZOLE 40 MG TABLET PO SCH (09:30)
[2021-11-01] MEDS: FINASTERIDE 5 MG TABLET (FP) PO SCH (09:30)
[2021-11-01] MEDS: APIXABAN 2.5 MG TABLET PO SCH ×2 (09:30→22:28)
[2021-11-01] MEDS: POLYETHYLENE GLYCOL (HEALTHYLAX) 3350 17 GM PACKET PO SCH ×2 (09:31→22:31)
[2021-11-01 15:10] LABS: BODY FLUID ALBUMIN 1.1 g/dL (Not Estab.)
[2021-11-01] MEDS: ACETAMINOPHEN 325 MG TABLET (FP) PO PRN (16:56)
[2021-11-02] MEDS: INSULIN (LEVEMIR) 100 UNITS/ML UNITS SQ SCH (06:33)
[2021-11-02] MEDS: INSULIN SLIDING SCALE (NOVOLOG) 1 VIAL SQ SCH ×4 (06:33→22:17)
[2021-11-02] MEDS: PANTOPRAZOLE 40 MG TABLET PO SCH (09:58)
[2021-11-02] MEDS: POLYETHYLENE GLYCOL (HEALTHYLAX) 3350 17 GM PACKET PO SCH ×2 (09:58→22:16)
[2021-11-02] MEDS: FINASTERIDE 5 MG TABLET (FP) PO SCH (09:58)
[2021-11-02] MEDS: CARVEDILOL 6.25 MG TABLET (FP) PO SCH ×2 (09:58→22:16)
[2021-11-02] MEDS: APIXABAN 2.5 MG TABLET PO SCH ×2 (09:58→22:16)
[2021-11-02] MEDS: ATORVASTATIN CA 10 MG TABLET (FP) PO SCH (22:16)
[2021-11-03] MEDS: INSULIN (LEVEMIR) 100 UNITS/ML UNITS SQ SCH (06:35)
[2021-11-03] MEDS: INSULIN SLIDING SCALE (NOVOLOG) 1 VIAL SQ SCH ×4 (06:37→23:50)
[2021-11-03 08:28] LABS: BASO % 0.4 % (0-2.0); EOS % 2.3 % (0-4.5); HEMATOCRIT 36.2 % (35.4-49); HEMOGLOBIN 12.1 GM/dL (11.7-16.9); LYMPH % 20.3 % (8-40); MCHC 33.6 g/dl (32.0-35.9); MEAN CELL VOLUME 101.4 fl (80-96); MEAN PLT VOLUME 10.7 fl (7.5-11.1); MONO % 10.2 % (3.8-10.2); NEUT % 66.8 % (42.8-82.8); PLATELET COUNT 120 10^3/uL (134-434); RBC 3.57 M/mm3 (4.00-5.60); RDW 13.8 % (11.9-15.9); WHITE BLOOD COUNT 6.9 K/mm3 (4.0-10.0)
[2021-11-03 08:57] LABS: CALCIUM 8.1 mg/dL (8.5-10.1)
[2021-11-03 08:58] LABS: MAGNESIUM 2.9 mg/dL (1.8-2.4)
[2021-11-03 09:01] LABS: CREATININE 1.8 mg/dL (0.55-1.3); PHOSPHOROUS 2.4 mg/dL (2.5-4.9)
[2021-11-03 09:03] LABS: BILIRUBIN,TOTAL 0.9 mg/dL (0.2-1); TOT PROT 5.1 g/dl (6.4-8.2)
[2021-11-03] MEDS: APIXABAN 2.5 MG TABLET PO SCH ×2 (11:26→23:40)
[2021-11-03] MEDS: POLYETHYLENE GLYCOL (HEALTHYLAX) 3350 17 GM PACKET PO SCH ×2 (11:26→23:34)
[2021-11-03] MEDS: CARVEDILOL 6.25 MG TABLET (FP) PO SCH ×2 (11:26→23:32)
[2021-11-03] MEDS: PANTOPRAZOLE 40 MG TABLET PO SCH (11:26)
[2021-11-03] MEDS: FINASTERIDE 5 MG TABLET (FP) PO SCH (11:27)
[2021-11-04] MEDS: INSULIN SLIDING SCALE (NOVOLOG) 1 VIAL SQ SCH ×3 (06:07→17:39)
[2021-11-04] MEDS: INSULIN (LEVEMIR) 100 UNITS/ML UNITS SQ SCH (06:08)
[2021-11-04] MEDS: CARVEDILOL 6.25 MG TABLET (FP) PO SCH (10:58)
[2021-11-04] MEDS: POLYETHYLENE GLYCOL (HEALTHYLAX) 3350 17 GM PACKET PO SCH (10:58)
[2021-11-04] MEDS: APIXABAN 2.5 MG TABLET PO SCH (10:58)
[2021-11-04] MEDS: PANTOPRAZOLE 40 MG TABLET PO SCH (10:58)
[2021-11-04] MEDS: FINASTERIDE 5 MG TABLET (FP) PO SCH (10:58)
[2021-11-04 15:14] VITALS: BP 147/67; PULSE 56; TEMP 99.6
[2021-11-04] MEDS: ACETAMINOPHEN 325 MG TABLET (FP) PO PRN (16:19)
== END 2021-11-04 19:00 | disposition home health service (06) | DRG 291 ==
LOC: JER 12:23 → JERBED 13:33 → J4W 15:52
PROVIDERS: ADMIT Family Medicine; ATTEND Family Medicine
PROC: 0W993ZX Drainage of Right Pleural Cavity, Percutaneous Approach, Diagnostic (ICD-10-PCS; principal; 2021-10-20)
PROC: 0W9930Z Drainage of Right Pleural Cavity with Drainage Device, Percutaneous Approach (ICD-10-PCS; 2021-10-28)
DX: I13.0 Hypertensive heart and chronic kidney disease with heart failure and stage 1 through stage 4 chronic kidney disease, or unspecified chronic kidney disease (principal); I50.23 Acute on chronic systolic (congestive) heart failure; J90 Pleural effusion, not elsewhere classified; I24.8 Other forms of acute ischemic heart disease; N18.4 Chronic kidney disease, stage 4 (severe); J95.811 Postprocedural pneumothorax; N39.0 Urinary tract infection, site not specified; E78.5 Hyperlipidemia, unspecified; I25.10 Atherosclerotic heart disease of native coronary artery without angina pectoris; I48.0 Paroxysmal atrial fibrillation; D69.6 Thrombocytopenia, unspecified; I34.0 Nonrheumatic mitral (valve) insufficiency; E11.65 Type 2 diabetes mellitus with hyperglycemia; E11.22 Type 2 diabetes mellitus with diabetic chronic kidney disease; R31.0 Gross hematuria; E07.81 Sick-euthyroid syndrome; E87.5 Hyperkalemia; D64.9 Anemia, unspecified; Z79.01 Long term (current) use of anticoagulants; Y84.8 Other medical procedures as the cause of abnormal reaction of the patient, or of later complication, without mention of misadventure at the time of the procedure; B95.2 Enterococcus as the cause of diseases classified elsewhere; Z95.1 Presence of aortocoronary bypass graft; Z86.73 Personal history of transient ischemic attack (TIA), and cerebral infarction without residual deficits; Z85.05 Personal history of malignant neoplasm of liver
CPT/HCPCS: 32550; 36415; 71045-TC-FY; 71046-TC-FY; 71250-TC; 74176-TC; 76856-TC; 76942; 80048; 80053; 81003; 82042; 82150; 82465; 82945; 82962; 83036; 83615; 83735; 83880; 83986; 84100; 84157; 84436; 84439; 84443; 84478; 84479; 84484; 85025; 85027; 85610; 85730; 87070; 87075; 87086; 87102; 87116; 87186; 87205; 87206; 87210; 88108; 88305-TC; 93005; 93010; 94761; 97116-GP; 97162-GP; 99285-25; C9803-CS; U0003; U0005

== ENCOUNTER 2021-11-11 08:43 | Inpatient (IN) | payer OTHER ==
[2021-11-11] MEDS ORDERED: ACETAMINOPHEN 1000 MG/100 ML BAG IVPB ONE (09:09)
[2021-11-11] MEDS ORDERED: ACETAMINOPHEN INJECTION 100 ML IVPB ONE (09:40)
[2021-11-11 09:46] LABS: BASO % 0.3 % (0-2.0); HEMATOCRIT 30.7 % (35.4-49); HEMOGLOBIN 10.1 GM/dL (11.7-16.9); LYMPH % 7.3 % (8-40); MCH 33.8 pg (25.7-33.7); MCHC 32.9 g/dl (32.0-35.9); MEAN CELL VOLUME 102.9 fl (80-96); MEAN PLT VOLUME 10.4 fl (7.5-11.1); MONO % 8.1 % (3.8-10.2); NEUT % 84.3 % (42.8-82.8); PLATELET COUNT 156 10^3/uL (134-434); RBC 2.99 M/mm3 (4.00-5.60); RDW 13.8 % (11.9-15.9); WHITE BLOOD COUNT 13.8 K/mm3 (4.0-10.0)
[2021-11-11 09:52] LABS: INR 1.76 (0.83-1.09); PROTHROMBIN TIME (PATIENT) 20.4 SEC (9.7-13.0)
[2021-11-11 09:55] LABS: ACTIVATED PTT 33.9 SECONDS (25.2-36.5)
[2021-11-11 09:58] LABS: VENOUS BASE EXCESS -1.9 mmol/L (-2-2); VENOUS O2 SATURATION 75.1 % (70-80); VENOUS PCO2 43.6 mmHg (38-52); VENOUS PH 7.353 (7.310-7.410)
[2021-11-11] MEDS ORDERED: SODIUM CHLORIDE 500 ML IV STA ×2 (10:01→21:26)
[2021-11-11 10:10] LABS: CHLORIDE 88 mmol/L (98-107); SODIUM 124 mmol/L (136-145)
[2021-11-11 10:12] LABS: CALCIUM 7.9 mg/dL (8.5-10.1)
[2021-11-11 10:13] LABS: ALBUMIN 2.3 g/dl (3.4-5.0); CO2 25 mmol/L (21-32); GLUCOSE,RANDOM 201 mg/dL (74-106)
[2021-11-11 10:16] LABS: CREATININE 3.1 mg/dL (0.55-1.3); SGOT/AST 53 U/L (15-37); SGPT/ALT 30 U/L (13-61)
[2021-11-11 10:18] LABS: BILIRUBIN,TOTAL 1.2 mg/dL (0.2-1); TOT PROT 5.6 g/dl (6.4-8.2)
[2021-11-11 10:19] LABS: ALK PHOS 167 U/L (45-117)
[2021-11-11 10:21] LABS: N-TERMINAL BNP 10663.3 pg/ml (5-450)
[2021-11-11 10:40] LABS: ANION GAP 10 MMOL/L (8-16); BLOOD UREA NITROGEN 114.5 mg/dL (7-18); LACTIC ACID 5.3 mmol/L (0.4-2.0)
[2021-11-11 11:51] LABS: CHLORIDE 90 mmol/L (98-107); SODIUM 126 mmol/L (136-145)
[2021-11-11 11:52] LABS: CO2 25 mmol/L (21-32); GLUCOSE,RANDOM 206 mg/dL (74-106)
[2021-11-11] MEDS ORDERED: LACTATED RINGERS SOLUTION 1000 ML INFUS.BAG IV ONE ×2 (11:58→16:43)
[2021-11-11 12:02] LABS: ANION GAP 11 MMOL/L (8-16); BLOOD UREA NITROGEN 116.1 mg/dL (7-18)
[2021-11-11] MEDS ORDERED: ALBUTEROL SO4 0.5 % INH SOLN 2.5 MG/0.5 ML VIAL.NEB. NEB ONE ×2 (12:24→12:53)
[2021-11-11] MEDS ORDERED: CALCIUM GLUCONATE 10% - 1,000 MG/10 ML VIAL IVPUSH ONE (12:24)
[2021-11-11] MEDS ORDERED: VANCOMYCIN 1 GM in D5W (PRE-DOCKED) 1,000 MG/250 ML IVPB ONE (12:29)
[2021-11-11] MEDS ORDERED: PIPERACILLIN/TAZOB 4.5 GM 4.5 GM in DEXTROSE 5%-WATER 100 ML IVPB ONE (12:29)
[2021-11-11 12:37] LABS: EPI CELLS 31 /uL (0-25.1); HYALINE CASTS 4 /uL (0-3.1); URINE APPEARANCE CLEAR; URINE BACTERIA 60 /uL (0-1359); URINE BILIRUBIN NEGATIVE (NEGATIVE); URINE COLOR DK YELLOW; URINE GLUCOSE (UA) NEGATIVE (NEGATIVE); URINE KETONE TRACE (NEGATIVE); URINE LEUK ESTERASE NEGATIVE (NEGATIVE); URINE NITRITE NEGATIVE (NEGATIVE); URINE PROTEIN NEGATIVE (NEGATIVE); URINE RBC 55 /uL (0-23.9); URINE WBC 12 /uL (0-25.8)
[2021-11-11] MEDS ORDERED: SODIUM ZIRCONIUM CYCLOSILICATE (LOKELMA) 5 GM PACKET PO ONE (12:52)
[2021-11-11] MEDS ORDERED: VANCOMYCIN 1 GRAM (PRE-DOCKED) 1,000 MG/250 ML BAG IVPB ONE (12:53)
[2021-11-11] MEDS ORDERED: CALCIUM GLUCONATE 10% - 1,000 MG/10 ML VIAL ONE (12:53)
[2021-11-11] MEDS ORDERED: PIPERACILLIN/TAZOB 4.5 GM 4.5 GM/100 ML BAG IVPB ONE (12:53)
[2021-11-11] MEDS ORDERED: SODIUM ZIRCONIUM CYCLOSILICATE (LOKELMA) 5 GM PACKET ONE (12:54)
[2021-11-11] MEDS ORDERED: DEXTROSE 50%-WATER 25 GM/50 ML DISP.SYRIN ONE (13:00)
[2021-11-11] MEDS ORDERED: INSULIN (NOVOLOG) ASPART 100 UNITS/ML 10ML VIAL SQ ONE (13:01)
[2021-11-11] MEDS ORDERED: DEXTROSE 50%-WATER - 25 GM/50 ML VIAL IVPUSH ONE (13:01)
[2021-11-11] MEDS ORDERED: ATROPINE SO4 0.4 MG/1 ML VIAL IVPUSH ONE (13:34)
[2021-11-11] MEDS ORDERED: ATROPINE SULFATE 1 MG/10 ML DISP.SYRIN ONE (13:42)
[2021-11-11] MEDS ORDERED: ACETAMINOPHEN 1000 MG/100 ML BAG IVPB PRN (14:54)
[2021-11-11] MEDS ORDERED: APIXABAN 2.5 MG TABLET PO SCH (15:00)
[2021-11-11] MEDS ORDERED: SODIUM CHLORIDE 250 ML IV PRN ×2 (15:10→17:54)
[2021-11-11] MEDS ORDERED: ATORVASTATIN CA 10 MG TABLET (FP) ONE (15:25)
[2021-11-11] MEDS ORDERED: APIXABAN 2.5 MG TABLET ONE (15:25)
[2021-11-11 15:29] LABS: CHLORIDE 89 mmol/L (98-107); SODIUM 126 mmol/L (136-145)
[2021-11-11 15:30] LABS: ANION GAP 12 MMOL/L (8-16); CALCIUM 7.9 mg/dL (8.5-10.1); CO2 26 mmol/L (21-32); GLUCOSE,RANDOM 316 mg/dL (74-106)
[2021-11-11 15:34] LABS: CREATININE 3.3 mg/dL (0.55-1.3)
[2021-11-11 15:46] LABS: BLOOD UREA NITROGEN 114.7 mg/dL (7-18)
[2021-11-11] MEDS ORDERED: CALAMINE 8% TOPICAL LOTION 177 ML BOTTLE TP PRN (17:06)
[2021-11-11] MEDS ORDERED: SENNOSIDES 8.6MG TABLET (FP) PO PRN (17:06)
[2021-11-11] MEDS ORDERED: NITROGLYCERIN 2% OINTMENT - 1GM PACKET TD ONE (19:31)
[2021-11-11] MEDS: ALBUMIN HUMAN 25% 12.5 GM/50 ML VIAL IV SCH ×5 (19:39→22:37)
[2021-11-11] MEDS ORDERED: PIPERACILLIN/TAZOB 2.25 GM 2.25 GM in DEXTROSE 5%-WATER - 50 ML IVPB SCH (21:00)
[2021-11-11] MEDS ORDERED: SODIUM CHLORIDE 1,000 ML IV SCH (21:15)
[2021-11-11] MEDS ORDERED: CARVEDILOL 6.25 MG TABLET (FP) PO SCH (22:00)
[2021-11-11] MEDS: INSULIN SLIDING SCALE (NOVOLOG) 1 VIAL SQ SCH (22:00)
[2021-11-11] MEDS ORDERED: INSULIN SLIDING SCALE (NOVOLOG) 1 VIAL SQ SCH (22:00)
[2021-11-11] MEDS ORDERED: PIPERACILLIN/TAZOBACTAM 2.25 GM VIAL IVPB ONE (22:33)
[2021-11-11] MEDS ORDERED: DEXTROSE 5%-WATER - 50 ML IVPB ONE (22:33)
[2021-11-11] MEDS: PIPERACILLIN/TAZOB 2.25 GM 2.25 GM in DEXTROSE 5%-WATER - 50 ML IVPB SCH (22:34)
[2021-11-11] MEDS: MUPIROCIN 2% TOPICAL OINTMENT FOR DECOLONIZATION NS SCH (22:35)
[2021-11-11] MEDS: CHLORHEXIDINE GLUCONATE 4% CLEANSER FOR DECOLONIZATION TP SCH (22:35)
[2021-11-11] MEDS: INSULIN (LEVEMIR) 100 UNITS/ML UNITS SQ SCH (22:36)
[2021-11-11 22:40] LABS: LACTIC ACID 3.5 mmol/L (0.4-2.0)
[2021-11-11] MEDS ORDERED: MUPIROCIN 2% TOPICAL OINTMENT FOR DECOLONIZATION NS SCH (23:15)
[2021-11-12 00:59] LABS: BASO % 0.2 % (0-2.0); HEMATOCRIT 31.3 % (35.4-49); HEMOGLOBIN 10.5 GM/dL (11.7-16.9); LYMPH % 8.7 % (8-40); MCH 34.5 pg (25.7-33.7); MCHC 33.5 g/dl (32.0-35.9); MEAN CELL VOLUME 102.8 fl (80-96); MEAN PLT VOLUME 10.4 fl (7.5-11.1); MONO % 3.1 % (3.8-10.2); PLATELET COUNT 100 10^3/uL (134-434); RBC 3.04 M/mm3 (4.00-5.60); RDW 13.8 % (11.9-15.9); WHITE BLOOD COUNT 7.1 K/mm3 (4.0-10.0)
[2021-11-12 01:21] LABS: ALBUMIN 2.1 g/dl (3.4-5.0); CALCIUM 7.8 mg/dL (8.5-10.1); MAGNESIUM 2.5 mg/dL (1.8-2.4)
[2021-11-12 01:24] LABS: CREATININE 2.6 mg/dL (0.55-1.3); PHOSPHOROUS 4.7 mg/dL (2.5-4.9)
[2021-11-12 01:26] LABS: BILIRUBIN,TOTAL 1.6 mg/dL (0.2-1)
[2021-11-12 02:08] LABS: BLOOD UREA NITROGEN 77.5 mg/dL (7-18)
[2021-11-12] MEDS ORDERED: DEXTROSE 5%-WATER - 50 ML IVPB ONE ×3 (02:09→15:40)
[2021-11-12] MEDS ORDERED: PIPERACILLIN/TAZOBACTAM 2.25 GM VIAL IVPB ONE ×3 (02:09→15:39)
[2021-11-12] MEDS: PIPERACILLIN/TAZOB 2.25 GM 2.25 GM in DEXTROSE 5%-WATER - 50 ML IVPB SCH ×3 (02:12→15:55)
[2021-11-12] MEDS ORDERED: SODIUM CHLORIDE 500 ML IV STA ×3 (02:36→22:37)
[2021-11-12] MEDS: INSULIN SLIDING SCALE (NOVOLOG) 1 VIAL SQ SCH ×5 (07:00→22:05)
[2021-11-12 07:35] LABS: BASO % 0.2 % (0-2.0); HEMOGLOBIN 10.2 GM/dL (11.7-16.9); LYMPH % 6.7 % (8-40); MCH 34.8 pg (25.7-33.7); MEAN CELL VOLUME 102.3 fl (80-96); MEAN PLT VOLUME 10.4 fl (7.5-11.1); NEUT % 86.1 % (42.8-82.8); PLATELET COUNT 90 10^3/uL (134-434); RBC 2.93 M/mm3 (4.00-5.60); RDW 14.2 % (11.9-15.9); WHITE BLOOD COUNT 9.1 K/mm3 (4.0-10.0)
[2021-11-12 08:05] LABS: CALCIUM 7.7 mg/dL (8.5-10.1)
[2021-11-12 08:06] LABS: BLOOD UREA NITROGEN 82.4 mg/dL (7-18); MAGNESIUM 2.5 mg/dL (1.8-2.4)
[2021-11-12 08:08] LABS: CREATININE 2.7 mg/dL (0.55-1.3)
[2021-11-12 08:09] LABS: PHOSPHOROUS 5.3 mg/dL (2.5-4.9)
[2021-11-12 08:10] LABS: BILIRUBIN,TOTAL 1.3 mg/dL (0.2-1); TOT PROT 4.8 g/dl (6.4-8.2)
[2021-11-12] MEDS ORDERED: VANCOMYCIN 1 GM in D5W (PRE-DOCKED) 1,000 MG/250 ML IVPB ONE (10:00)
[2021-11-12] MEDS ORDERED: TORSEMIDE 20 MG TABLET (FP) PO SCH (10:00)
[2021-11-12] MEDS: MUPIROCIN 2% TOPICAL OINTMENT FOR DECOLONIZATION NS SCH ×2 (10:31→22:05)
[2021-11-12] MEDS: POLYETHYLENE GLYCOL (HEALTHYLAX) 3350 17 GM PACKET PO SCH (10:35)
[2021-11-12] MEDS ORDERED: SODIUM PHOSPHATE/NA BIPHOS 133 ML ENEMA PR ONE (11:49)
[2021-11-12] MEDS ORDERED: PIPERACILLIN/TAZOB 2.25 GM 2.25 GM in DEXTROSE 5%-WATER - 50 ML IVPB SCH (12:00)
[2021-11-12] MEDS ORDERED: SODIUM ZIRCONIUM CYCLOSILICATE (LOKELMA) 5 GM PACKET PO ONE (12:26)
[2021-11-12] MEDS: MIDODRINE HCL 5 MG TABLET PO SCH ×2 (13:37→18:30)
[2021-11-12] MEDS ORDERED: MIDODRINE HCL 5 MG TABLET PO SCH (18:00)
[2021-11-12] MEDS ORDERED: CHLORHEXIDINE GLUCONATE 4% CLEANSER FOR DECOLONIZATION TP SCH (22:00)
[2021-11-12] MEDS: INSULIN (LEVEMIR) 100 UNITS/ML UNITS SQ SCH (22:01)
[2021-11-12] MEDS: CHLORHEXIDINE GLUCONATE 4% CLEANSER FOR DECOLONIZATION TP SCH (22:06)
[2021-11-12] MEDS ORDERED: ACETAMINOPHEN 1000 MG/100 ML BAG IVPB PRN (23:23)
[2021-11-13] MEDS: NOREPINEPHRINE D5W PREMIX 16,000 MCG/500 ML BAG IVPB SCH (00:05)
[2021-11-13] MEDS ORDERED: SODIUM CHLORIDE 500 ML IV STA (03:20)
[2021-11-13] MEDS: VASOPRESSIN 40 UNITS/100 ML BAG IV SCH (05:30)
[2021-11-13] MEDS: INSULIN SLIDING SCALE (NOVOLOG) 1 VIAL SQ SCH ×5 (06:22→21:01)
[2021-11-13] MEDS ORDERED: VANCOMYCIN 1,000 MG in DEXTROSE 5%-WATER - 250 ML IVPB SCH (07:15)
[2021-11-13 07:25] LABS: HEMATOCRIT 32.4 % (35.4-49); HEMOGLOBIN 10.7 GM/dL (11.7-16.9); MCH 33.7 pg (25.7-33.7); MCHC 33.1 g/dl (32.0-35.9); MEAN PLT VOLUME 10.1 fl (7.5-11.1); PLATELET COUNT 122 10^3/uL (134-434); RBC 3.18 M/mm3 (4.00-5.60); RDW 14.2 % (11.9-15.9); WHITE BLOOD COUNT 18.7 K/mm3 (4.0-10.0)
[2021-11-13 07:52] LABS: CALCIUM 7.8 mg/dL (8.5-10.1)
[2021-11-13 07:53] LABS: ALBUMIN 1.9 g/dl (3.4-5.0); MAGNESIUM 2.1 mg/dL (1.8-2.4)
[2021-11-13 07:56] LABS: CREATININE 2.5 mg/dL (0.55-1.3); PHOSPHOROUS 4.8 mg/dL (2.5-4.9)
[2021-11-13 07:57] LABS: TOT PROT 5.1 g/dl (6.4-8.2)
[2021-11-13 09:03] LABS: BLOOD UREA NITROGEN 57.3 mg/dL (7-18)
[2021-11-13] MEDS ORDERED: DEXTROSE 5%-WATER - 50 ML IVPB ONE ×2 (09:23→17:26)
[2021-11-13] MEDS ORDERED: PIPERACILLIN/TAZOBACTAM 2.25 GM VIAL IVPB ONE ×2 (09:23→17:26)
[2021-11-13] MEDS: MIDODRINE HCL 5 MG TABLET PO SCH ×2 (09:35→17:17)
[2021-11-13] MEDS: APIXABAN 2.5 MG TABLET PO SCH ×2 (09:35→21:01)
[2021-11-13] MEDS: POLYETHYLENE GLYCOL (HEALTHYLAX) 3350 17 GM PACKET PO SCH (09:36)
[2021-11-13] MEDS: MUPIROCIN 2% TOPICAL OINTMENT FOR DECOLONIZATION NS SCH ×2 (10:00→21:01)
[2021-11-13] MEDS ORDERED: PIPERACILLIN/TAZOB 2.25 GM 2.25 GM in DEXTROSE 5%-WATER - 50 ML IVPB SCH (10:00)
[2021-11-13] MEDS ORDERED: VANCOMYCIN/WATER FOR INJ (PEG) 1,000 MG/200 ML BAG IVPB ONE (10:00)
[2021-11-13] MEDS ORDERED: PIPERACILLIN/TAZOB 2.25 GM 2.25 GM in DEXTROSE 5%-WATER - 50 ML IVPB ONE (10:00)
[2021-11-13] MEDS: FUROSEMIDE 100 MG/10 ML INJECTABLE VIAL IVPB SCH (11:01)
[2021-11-13] MEDS: PIPERACILLIN/TAZOB 2.25 GM 2.25 GM in DEXTROSE 5%-WATER - 50 ML IVPB SCH (17:27)
[2021-11-13] MEDS: CHLORHEXIDINE GLUCONATE 4% CLEANSER FOR DECOLONIZATION TP SCH (21:01)
[2021-11-13] MEDS: INSULIN (LEVEMIR) 100 UNITS/ML UNITS SQ SCH (21:01)
[2021-11-14] MEDS ORDERED: DEXTROSE 5%-WATER - 50 ML IVPB ONE ×4 (01:58→22:03)
[2021-11-14] MEDS ORDERED: PIPERACILLIN/TAZOBACTAM 2.25 GM VIAL IVPB ONE ×4 (01:58→22:03)
[2021-11-14] MEDS: PIPERACILLIN/TAZOB 2.25 GM 2.25 GM in DEXTROSE 5%-WATER - 50 ML IVPB SCH ×3 (02:23→17:55)
[2021-11-14] MEDS: NOREPINEPHRINE D5W PREMIX 16,000 MCG/500 ML BAG IVPB SCH ×2 (02:25→06:47)
[2021-11-14] MEDS: VASOPRESSIN 40 UNITS/100 ML BAG IV SCH (04:25)
[2021-11-14] MEDS: INSULIN SLIDING SCALE (NOVOLOG) 1 VIAL SQ SCH ×4 (06:47→22:09)
[2021-11-14 07:53] LABS: BASO % 0.2 % (0-2.0); EOS % 0.1 % (0-4.5); HEMATOCRIT 30.7 % (35.4-49); HEMOGLOBIN 10.3 GM/dL (11.7-16.9); LYMPH % 8.9 % (8-40); MCHC 33.7 g/dl (32.0-35.9); MEAN PLT VOLUME 9.6 fl (7.5-11.1); MONO % 6.2 % (3.8-10.2); NEUT % 84.6 % (42.8-82.8); PLATELET COUNT 99 10^3/uL (134-434); RBC 3.04 M/mm3 (4.00-5.60); RDW 14.2 % (11.9-15.9); WHITE BLOOD COUNT 15.7 K/mm3 (4.0-10.0)
[2021-11-14 08:17] LABS: CALCIUM 7.8 mg/dL (8.5-10.1)
[2021-11-14 08:18] LABS: ALBUMIN 1.7 g/dl (3.4-5.0); BLOOD UREA NITROGEN 67.3 mg/dL (7-18); MAGNESIUM 2.4 mg/dL (1.8-2.4)
[2021-11-14 08:20] LABS: PHOSPHOROUS 5.5 mg/dL (2.5-4.9)
[2021-11-14 08:22] LABS: BILIRUBIN,TOTAL 0.9 mg/dL (0.2-1); TOT PROT 4.8 g/dl (6.4-8.2)
[2021-11-14] MEDS: MUPIROCIN 2% TOPICAL OINTMENT FOR DECOLONIZATION NS SCH ×2 (09:59→22:08)
[2021-11-14] MEDS: APIXABAN 2.5 MG TABLET PO SCH ×2 (10:00→22:09)
[2021-11-14] MEDS: POLYETHYLENE GLYCOL (HEALTHYLAX) 3350 17 GM PACKET PO SCH (10:00)
[2021-11-14] MEDS: MIDODRINE HCL 5 MG TABLET PO SCH ×2 (10:00→17:54)
[2021-11-14] MEDS: FUROSEMIDE 100 MG/10 ML INJECTABLE VIAL IVPB SCH (10:01)
[2021-11-14] MEDS: VANCOMYCIN 500 MG in DEXTROSE 5%-WATER - 100 ML IVPB ONE ×2 (13:35→13:41)
[2021-11-14] MEDS ORDERED: ATORVASTATIN CA 10 MG TABLET (FP) PO SCH (22:00)
[2021-11-14] MEDS: CHLORHEXIDINE GLUCONATE 4% CLEANSER FOR DECOLONIZATION TP SCH (22:09)
[2021-11-14] MEDS: INSULIN (LEVEMIR) 100 UNITS/ML UNITS SQ SCH (22:09)
[2021-11-15] MEDS: PIPERACILLIN/TAZOB 2.25 GM 2.25 GM in DEXTROSE 5%-WATER - 50 ML IVPB SCH ×3 (01:47→18:13)
[2021-11-15] MEDS: VASOPRESSIN 40 UNITS/100 ML BAG IV SCH (05:21)
[2021-11-15] MEDS: INSULIN SLIDING SCALE (NOVOLOG) 1 VIAL SQ SCH ×4 (07:15→22:04)
[2021-11-15] MEDS ORDERED: DEXTROSE 5%-WATER - 50 ML IVPB ONE ×2 (09:03→17:41)
[2021-11-15] MEDS ORDERED: PIPERACILLIN/TAZOBACTAM 2.25 GM VIAL IVPB ONE ×2 (09:03→17:41)
[2021-11-15] MEDS: NOREPINEPHRINE D5W PREMIX 16,000 MCG/500 ML BAG IVPB SCH (09:37)
[2021-11-15] MEDS: MIDODRINE HCL 5 MG TABLET PO SCH ×3 (09:50→18:13)
[2021-11-15] MEDS: FUROSEMIDE 100 MG/10 ML INJECTABLE VIAL IVPB SCH ×2 (09:50→14:47)
[2021-11-15] MEDS: POLYETHYLENE GLYCOL (HEALTHYLAX) 3350 17 GM PACKET PO SCH (09:50)
[2021-11-15] MEDS: APIXABAN 2.5 MG TABLET PO SCH ×2 (09:51→22:04)
[2021-11-15] MEDS: MUPIROCIN 2% TOPICAL OINTMENT FOR DECOLONIZATION NS SCH ×2 (09:51→22:04)
[2021-11-15 10:12] LABS: HEMATOCRIT 29.9 % (35.4-49); HEMOGLOBIN 9.9 GM/dL (11.7-16.9); MCH 33.9 pg (25.7-33.7); MCHC 33.1 g/dl (32.0-35.9); MEAN CELL VOLUME 102.4 fl (80-96); MEAN PLT VOLUME 9.5 fl (7.5-11.1); PLATELET COUNT 78 10^3/uL (134-434); RBC 2.91 M/mm3 (4.00-5.60); WHITE BLOOD COUNT 9.2 K/mm3 (4.0-10.0)
[2021-11-15 10:34] LABS: ALBUMIN 1.6 g/dl (3.4-5.0); BLOOD UREA NITROGEN 75.9 mg/dL (7-18)
[2021-11-15 10:35] LABS: CALCIUM 7.9 mg/dL (8.5-10.1)
[2021-11-15 10:36] LABS: CREATININE 3.3 mg/dL (0.55-1.3)
[2021-11-15 10:39] LABS: BILIRUBIN,TOTAL 0.8 mg/dL (0.2-1); TOT PROT 4.7 g/dl (6.4-8.2)
[2021-11-15] MEDS: CHLORHEXIDINE GLUCONATE 4% CLEANSER FOR DECOLONIZATION TP SCH (22:04)
[2021-11-15] MEDS: INSULIN (LEVEMIR) 100 UNITS/ML UNITS SQ SCH (22:04)
[2021-11-16] MEDS ORDERED: ACETAMINOPHEN 1000 MG/100 ML BAG IVPB ONE (00:10)
[2021-11-16] MEDS ORDERED: PIPERACILLIN/TAZOBACTAM 2.25 GM VIAL IVPB ONE ×2 (00:33→08:56)
[2021-11-16] MEDS ORDERED: DEXTROSE 5%-WATER - 50 ML IVPB ONE ×2 (00:33→08:57)
[2021-11-16] MEDS: PIPERACILLIN/TAZOB 2.25 GM 2.25 GM in DEXTROSE 5%-WATER - 50 ML IVPB SCH ×2 (01:53→09:03)
[2021-11-16] MEDS: NOREPINEPHRINE D5W PREMIX 16,000 MCG/500 ML BAG IVPB SCH (04:13)
[2021-11-16] MEDS: VASOPRESSIN 40 UNITS/100 ML BAG IV SCH (04:14)
[2021-11-16] MEDS: FUROSEMIDE 100 MG/10 ML INJECTABLE VIAL IVPB SCH ×2 (05:20→16:08)
[2021-11-16] MEDS: INSULIN SLIDING SCALE (NOVOLOG) 1 VIAL SQ SCH ×4 (07:00→21:54)
[2021-11-16] MEDS ORDERED: DEXTROSE 50%-WATER - 25 GM/50 ML VIAL IVPUSH ONE ×2 (07:09→08:31)
[2021-11-16] MEDS ORDERED: DEXTROSE 50%-WATER - 25 GM/50 ML VIAL IVPUSH PRN (07:10)
[2021-11-16] MEDS ORDERED: DEXTROSE 50%-WATER 25 GM/50 ML DISP.SYRIN ONE (07:12)
[2021-11-16 07:17] LABS: HEMATOCRIT 27.5 % (35.4-49); HEMOGLOBIN 9.3 GM/dL (11.7-16.9); MCH 34.1 pg (25.7-33.7); MCHC 33.8 g/dl (32.0-35.9); MEAN PLT VOLUME 9.3 fl (7.5-11.1); PLATELET COUNT 68 10^3/uL (134-434); RBC 2.72 M/mm3 (4.00-5.60); RDW 13.9 % (11.9-15.9)
[2021-11-16 07:32] LABS: CHLORIDE 97 mmol/L (98-107); SODIUM 130 mmol/L (136-145)
[2021-11-16] MEDS ORDERED: SODIUM CHLORIDE 250 ML IV PRN ×2 (07:33→20:41)
[2021-11-16 07:35] LABS: ANION GAP 8 MMOL/L (8-16); BLOOD UREA NITROGEN 79.4 mg/dL (7-18); CALCIUM 7.7 mg/dL (8.5-10.1); CO2 26 mmol/L (21-32)
[2021-11-16 07:39] LABS: CREATININE 3.6 mg/dL (0.55-1.3)
[2021-11-16 07:55] LABS: GLUCOSE,RANDOM 40 mg/dL (74-106)
[2021-11-16] MEDS ORDERED: DEXTROSE 50%-WATER 25 GM/50 ML DISP.SYRIN IVPUSH PRN ×2 (08:47→20:41)
[2021-11-16] MEDS: POLYETHYLENE GLYCOL (HEALTHYLAX) 3350 17 GM PACKET PO SCH (09:03)
[2021-11-16] MEDS: APIXABAN 2.5 MG TABLET PO SCH ×2 (09:04→21:46)
[2021-11-16] MEDS: MUPIROCIN 2% TOPICAL OINTMENT FOR DECOLONIZATION NS SCH (09:04)
[2021-11-16] MEDS: MIDODRINE HCL 5 MG TABLET PO SCH ×3 (09:04→18:30)
[2021-11-16] MEDS ORDERED: VANCOMYCIN 500 MG in DEXTROSE 5%-WATER - 100 ML IVPB ONE (12:00)
[2021-11-16] MEDS: ALBUMIN HUMAN 25% 12.5 GM/50 ML VIAL IV SCH ×4 (12:00→14:29)
[2021-11-16] MEDS ORDERED: ACETAMINOPHEN 1000 MG/100 ML BAG IVPB PRN (12:39)
[2021-11-16] MEDS: GABAPENTIN 100 MG CAPSULE PO SCH ×2 (15:19→21:46)
[2021-11-16] MEDS ORDERED: VASOPRESSIN 40 UNITS/100 ML BAG IV SCH (20:41)
[2021-11-16] MEDS ORDERED: NOREPINEPHRINE D5W PREMIX 16,000 MCG/500 ML BAG IVPB SCH (20:41)
[2021-11-16] MEDS ORDERED: SENNOSIDES 8.6MG TABLET (FP) PO PRN (20:41)
[2021-11-16] MEDS ORDERED: LACTATED RINGERS SOLUTION 1000 ML INFUS.BAG IV ONE (20:41)
[2021-11-16] MEDS ORDERED: CALAMINE 8% TOPICAL LOTION 177 ML BOTTLE TP PRN (20:41)
[2021-11-16] MEDS: INSULIN (LEVEMIR) 100 UNITS/ML UNITS SQ SCH (21:55)
[2021-11-16] MEDS ORDERED: INSULIN (LEVEMIR) 100 UNITS/ML UNITS SQ SCH (22:00)
[2021-11-16] MEDS ORDERED: CHLORHEXIDINE GLUCONATE 4% CLEANSER FOR DECOLONIZATION TP SCH (22:00)
[2021-11-16] MEDS ORDERED: MUPIROCIN 2% TOPICAL OINTMENT FOR DECOLONIZATION NS SCH (22:00)
[2021-11-17] MEDS ORDERED: MELATONIN 5 MG TABLETS PO PRN (00:30)
[2021-11-17] MEDS: INSULIN SLIDING SCALE (NOVOLOG) 1 VIAL SQ SCH ×4 (06:23→21:41)
[2021-11-17] MEDS: GABAPENTIN 100 MG CAPSULE PO SCH ×2 (06:23→14:10)
[2021-11-17] MEDS: FUROSEMIDE 40 MG/4 ML INJECTABLE VIAL IVPB SCH ×2 (06:23→14:09)
[2021-11-17] MEDS: MIDODRINE HCL 5 MG TABLET PO SCH ×3 (10:09→17:56)
[2021-11-17] MEDS: APIXABAN 2.5 MG TABLET PO SCH (10:54)
[2021-11-17] MEDS: POLYETHYLENE GLYCOL (HEALTHYLAX) 3350 17 GM PACKET PO SCH (10:54)
[2021-11-17 12:44] LABS: HEMATOCRIT 28.1 % (35.4-49); HEMOGLOBIN 9.6 GM/dL (11.7-16.9); MCH 34.5 pg (25.7-33.7); MEAN CELL VOLUME 101.2 fl (80-96); MEAN PLT VOLUME 9.9 fl (7.5-11.1); PLATELET COUNT 64 10^3/uL (134-434); RBC 2.77 M/mm3 (4.00-5.60); WHITE BLOOD COUNT 7.4 K/mm3 (4.0-10.0)
[2021-11-17 13:04] LABS: CALCIUM 7.7 mg/dL (8.5-10.1)
[2021-11-17 13:06] LABS: BLOOD UREA NITROGEN 60.8 mg/dL (7-18)
[2021-11-17 13:09] LABS: CREATININE 3.1 mg/dL (0.55-1.3)
[2021-11-17 14:28] VITALS: BMI 26.9
[2021-11-17] MEDS ORDERED: INSULIN (NOVOLOG) ASPART 100 UNITS/ML 10ML VIAL ONE ×2 (17:50→21:18)
[2021-11-17] MEDS: INSULIN (LEVEMIR) 100 UNITS/ML UNITS SQ SCH (21:41)
[2021-11-17] MEDS ORDERED: ATORVASTATIN CA 10 MG TABLET (FP) PO SCH (22:00)
[2021-11-18] MEDS: FUROSEMIDE 100 MG/10 ML INJECTABLE VIAL IVPB SCH ×2 (06:19→14:40)
[2021-11-18] MEDS: INSULIN SLIDING SCALE (NOVOLOG) 1 VIAL SQ SCH ×4 (06:19→22:16)
[2021-11-18 08:59] LABS: HEMATOCRIT 27.5 % (35.4-49); HEMOGLOBIN 9.2 GM/dL (11.7-16.9); MCHC 33.4 g/dl (32.0-35.9); MEAN PLT VOLUME 9.3 fl (7.5-11.1); PLATELET COUNT 69 10^3/uL (134-434); RBC 2.69 M/mm3 (4.00-5.60); RDW 13.8 % (11.9-15.9); WHITE BLOOD COUNT 7.7 K/mm3 (4.0-10.0)
[2021-11-18] MEDS: POLYETHYLENE GLYCOL (HEALTHYLAX) 3350 17 GM PACKET PO SCH (09:13)
[2021-11-18] MEDS: MIDODRINE HCL 5 MG TABLET PO SCH ×3 (09:20→17:42)
[2021-11-18 09:25] LABS: ALBUMIN 1.9 g/dl (3.4-5.0); BLOOD UREA NITROGEN 75.5 mg/dL (7-18); CALCIUM 7.9 mg/dL (8.5-10.1); MAGNESIUM 2.4 mg/dL (1.8-2.4)
[2021-11-18 09:28] LABS: BILIRUBIN,DIRECT 0.6 mg/dL (0.0-0.2); CREATININE 3.6 mg/dL (0.55-1.3); PHOSPHOROUS 5.2 mg/dL (2.5-4.9)
[2021-11-18 09:30] LABS: BILIRUBIN,TOTAL 1.1 mg/dL (0.2-1)
[2021-11-18] MEDS ORDERED: GABAPENTIN 100 MG CAPSULE PO SCH (10:00)
[2021-11-18 10:12] LABS: ANISOCYTOSIS 0; MACROCYTOSIS 0
[2021-11-18 10:46] LABS: ARTERIAL BLD GAS O2 SATURATION 98.9 % (95-98); ARTERIAL BLOOD GAS BASE EXCESS -0.9 mmol/L (-2-2); ARTERIAL BLOOD GAS PO2 150.8 mmHg (80-100); ARTERIAL BLOOD GAS pH 7.371 (7.350-7.450)
[2021-11-18 10:58] LABS: ALLENS TEST POSITIVE
[2021-11-18 10:59] LABS: VENT MODE N
[2021-11-18] MEDS ORDERED: MINERAL OIL/PET HY-PHL TOPICAL OINTMENT 454 GM JAR TP SCH (15:15)
[2021-11-18] MEDS ORDERED: BACITRACIN 15 GM TUBE TOPICAL OINTMENT TP SCH (15:15)
[2021-11-18] MEDS ORDERED: ALBUTEROL SO4 2.5/IPRATROPIUM 0.5 INH SOL 3 ML VIAL.NEB. NEB PRN (17:18)
[2021-11-18] MEDS ORDERED: SODIUM CHLORIDE 250 ML IV STA (17:20)
[2021-11-18] MEDS ORDERED: MELATONIN 5 MG TABLETS PO PRN (18:14)
[2021-11-18] MEDS ORDERED: DEXTROSE 50%-WATER 25 GM/50 ML DISP.SYRIN IVPUSH PRN (18:14)
[2021-11-18] MEDS ORDERED: CALAMINE 8% TOPICAL LOTION 177 ML BOTTLE TP PRN (18:14)
[2021-11-18] MEDS ORDERED: MIDODRINE HCL 2.5 MG TABLET PO ONE (21:45)
[2021-11-18] MEDS ORDERED: SENNOSIDES 8.6MG TABLET (FP) PO SCH (22:00)
[2021-11-18] MEDS: INSULIN (LEVEMIR) 100 UNITS/ML UNITS SQ SCH (22:15)
[2021-11-18] MEDS: APIXABAN 2.5 MG TABLET PO SCH (22:17)
[2021-11-18] MEDS: SENNOSIDES 8.6MG TABLET (FP) PO SCH (22:18)
[2021-11-18] MEDS: BACITRACIN 15 GM TUBE TOPICAL OINTMENT TP SCH (22:54)
[2021-11-18] MEDS: MINERAL OIL/PET HY-PHL TOPICAL OINTMENT 454 GM JAR TP SCH (22:54)
[2021-11-19 08:13] LABS: HEMATOCRIT 28.3 % (35.4-49); HEMOGLOBIN 9.5 GM/dL (11.7-16.9); MCHC 33.5 g/dl (32.0-35.9); MEAN CELL VOLUME 101.3 fl (80-96); MEAN PLT VOLUME 9.8 fl (7.5-11.1); PLATELET COUNT 95 10^3/uL (134-434); RBC 2.79 M/mm3 (4.00-5.60); RDW 13.5 % (11.9-15.9); WHITE BLOOD COUNT 7.6 K/mm3 (4.0-10.0)
[2021-11-19 08:24] LABS: CALCIUM 8.3 mg/dL (8.5-10.1)
[2021-11-19 08:25] LABS: BLOOD UREA NITROGEN 90.9 mg/dL (7-18)
[2021-11-19 08:28] LABS: CREATININE 3.9 mg/dL (0.55-1.3)
[2021-11-19] MEDS: APIXABAN 2.5 MG TABLET PO SCH ×2 (09:08→21:57)
[2021-11-19] MEDS: MINERAL OIL/PET HY-PHL TOPICAL OINTMENT 454 GM JAR TP SCH ×2 (09:09→21:57)
[2021-11-19] MEDS: BACITRACIN 15 GM TUBE TOPICAL OINTMENT TP SCH ×2 (09:09→21:57)
[2021-11-19] MEDS ORDERED: FUROSEMIDE 40 MG/4 ML INJECTABLE VIAL IVPB SCH (10:00)
[2021-11-19] MEDS ORDERED: MIDODRINE HCL 2.5 MG TABLET PO SCH (10:00)
[2021-11-19] MEDS ORDERED: ALBUMIN HUMAN 25% 12.5 GM/50 ML VIAL IV ONE (11:38)
[2021-11-19] MEDS: SODIUM ZIRCONIUM CYCLOSILICATE (LOKELMA) 10 GM PACKET PO SCH (12:01)
[2021-11-19] MEDS: INSULIN SLIDING SCALE (NOVOLOG) 1 VIAL SQ SCH ×5 (12:02→21:58)
[2021-11-19] MEDS ORDERED: ALBUMIN HUMAN 25% 100 ML VIAL IV ONE (12:15)
[2021-11-19] MEDS ORDERED: FUROSEMIDE 40 MG/4 ML INJECTABLE VIAL IVPUSH ONE (15:00)
[2021-11-19] MEDS ORDERED: FUROSEMIDE 40 MG/4 ML INJECTABLE VIAL IVPUSH SCH (15:00)
[2021-11-19] MEDS: MIDODRINE HCL 2.5 MG TABLET PO SCH ×2 (15:42→19:06)
[2021-11-19] MEDS ORDERED: SODIUM ZIRCONIUM CYCLOSILICATE (LOKELMA) 10 GM PACKET PO ONE (20:00)
[2021-11-19] MEDS ORDERED: MIDODRINE HCL 2.5 MG TABLET PO ONE (21:05)
[2021-11-19] MEDS: INSULIN (LEVEMIR) 100 UNITS/ML UNITS SQ SCH (21:58)
[2021-11-19] MEDS: SENNOSIDES 8.6MG TABLET (FP) PO SCH (21:59)
[2021-11-19 22:06] LABS: SARS-CoV-2 NAA Not Detected (Not Detected)
[2021-11-20] MEDS: INSULIN SLIDING SCALE (NOVOLOG) 1 VIAL SQ SCH ×4 (06:12→21:08)
[2021-11-20 10:30] LABS: BASO % 0.3 % (0-2.0); EOS % 0.4 % (0-4.5); HEMOGLOBIN 9.1 GM/dL (11.7-16.9); LYMPH % 15.7 % (8-40); MCH 34.3 pg (25.7-33.7); MCHC 33.7 g/dl (32.0-35.9); MEAN CELL VOLUME 101.6 fl (80-96); MEAN PLT VOLUME 9.5 fl (7.5-11.1); MONO % 7.3 % (3.8-10.2); NEUT % 76.3 % (42.8-82.8); PLATELET COUNT 128 10^3/uL (134-434); RBC 2.66 M/mm3 (4.00-5.60); RDW 14.1 % (11.9-15.9); WHITE BLOOD COUNT 8.2 K/mm3 (4.0-10.0)
[2021-11-20 10:38] LABS: CHLORIDE 92 mmol/L (98-107); SODIUM 130 mmol/L (136-145)
[2021-11-20 10:41] LABS: CALCIUM 8.5 mg/dL (8.5-10.1); GLUCOSE,RANDOM 155 mg/dL (74-106)
[2021-11-20 10:42] LABS: ANION GAP 9 MMOL/L (8-16); CO2 29 mmol/L (21-32)
[2021-11-20 10:45] LABS: CREATININE 4.4 mg/dL (0.55-1.3); SGOT/AST 17 U/L (15-37); SGPT/ALT 24 U/L (13-61)
[2021-11-20 10:46] LABS: BILIRUBIN,TOTAL 1.3 mg/dL (0.2-1); TOT PROT 5.6 g/dl (6.4-8.2)
[2021-11-20 10:47] LABS: ALK PHOS 195 U/L (45-117)
[2021-11-20] MEDS: APIXABAN 2.5 MG TABLET PO SCH ×2 (10:52→21:07)
[2021-11-20] MEDS: TORSEMIDE 20 MG TABLET (FP) PO SCH (10:52)
[2021-11-20] MEDS: MIDODRINE HCL 5 MG TABLET PO SCH ×3 (10:52→18:26)
[2021-11-20] MEDS: BACITRACIN 15 GM TUBE TOPICAL OINTMENT TP SCH ×2 (10:53→21:08)
[2021-11-20] MEDS: SODIUM ZIRCONIUM CYCLOSILICATE (LOKELMA) 10 GM PACKET PO SCH (10:53)
[2021-11-20 11:01] LABS: ALBUMIN 2.4 g/dl (3.4-5.0); BLOOD UREA NITROGEN 109.1 mg/dL (7-18)
[2021-11-20] MEDS ORDERED: FUROSEMIDE 40 MG/4 ML INJECTABLE VIAL IVPUSH ONE (11:43)
[2021-11-20] MEDS: MINERAL OIL/PET HY-PHL TOPICAL OINTMENT 454 GM JAR TP SCH ×2 (13:27→21:08)
[2021-11-20] MEDS: INSULIN (LEVEMIR) 100 UNITS/ML UNITS SQ SCH (21:07)
[2021-11-20] MEDS: SENNOSIDES 8.6MG TABLET (FP) PO SCH (21:07)
[2021-11-21] MEDS: INSULIN SLIDING SCALE (NOVOLOG) 1 VIAL SQ SCH ×4 (06:10→21:30)
[2021-11-21 08:01] LABS: HEMATOCRIT 26.1 % (35.4-49); HEMOGLOBIN 8.8 GM/dL (11.7-16.9); MCH 34.3 pg (25.7-33.7); MCHC 33.8 g/dl (32.0-35.9); MEAN CELL VOLUME 101.5 fl (80-96); MEAN PLT VOLUME 9.2 fl (7.5-11.1); PLATELET COUNT 139 10^3/uL (134-434); RBC 2.57 M/mm3 (4.00-5.60); RDW 13.7 % (11.9-15.9); WHITE BLOOD COUNT 7.9 K/mm3 (4.0-10.0)
[2021-11-21 08:04] LABS: CHLORIDE 91 mmol/L (98-107); SODIUM 132 mmol/L (136-145)
[2021-11-21 08:16] LABS: GLUCOSE,RANDOM 145 mg/dL (74-106)
[2021-11-21 08:17] LABS: BILIRUBIN,TOTAL 0.9 mg/dL (0.2-1); SGOT/AST 16 U/L (15-37); SGPT/ALT 22 U/L (13-61)
[2021-11-21 08:18] LABS: ALBUMIN 2.3 g/dl (3.4-5.0); ALK PHOS 192 U/L (45-117); ANION GAP 12 MMOL/L (8-16); CALCIUM 8.3 mg/dL (8.5-10.1); CO2 28 mmol/L (21-32)
[2021-11-21 08:19] LABS: CREATININE 4.7 mg/dL (0.55-1.3); TOT PROT 5.4 g/dl (6.4-8.2)
[2021-11-21] MEDS: TORSEMIDE 20 MG TABLET (FP) PO SCH (09:51)
[2021-11-21] MEDS: SODIUM ZIRCONIUM CYCLOSILICATE (LOKELMA) 10 GM PACKET PO SCH (09:51)
[2021-11-21] MEDS: MINERAL OIL/PET HY-PHL TOPICAL OINTMENT 454 GM JAR TP SCH ×2 (09:52→21:29)
[2021-11-21] MEDS: APIXABAN 2.5 MG TABLET PO SCH (09:52)
[2021-11-21] MEDS: MIDODRINE HCL 5 MG TABLET PO SCH ×3 (09:52→17:05)
[2021-11-21] MEDS: BACITRACIN 15 GM TUBE TOPICAL OINTMENT TP SCH ×2 (09:52→21:29)
[2021-11-21] MEDS: INSULIN (LEVEMIR) 100 UNITS/ML UNITS SQ SCH (21:29)
[2021-11-21] MEDS: SENNOSIDES 8.6MG TABLET (FP) PO SCH (21:30)
[2021-11-21] MEDS ORDERED: ATORVASTATIN CA 10 MG TABLET (FP) PO SCH (22:00)
[2021-11-22] MEDS: INSULIN SLIDING SCALE (NOVOLOG) 1 VIAL SQ SCH ×3 (06:22→21:38)
[2021-11-22] MEDS ORDERED: VITAMIN B COMP W-C 1 EA TABLET (NEPHRO-VITE) PO SCH (10:00)
[2021-11-22] MEDS ORDERED: SODIUM CHLORIDE 250 ML IV PRN ×2 (10:05→17:15)
[2021-11-22] MEDS: MIDODRINE HCL 5 MG TABLET PO SCH ×3 (10:27→18:07)
[2021-11-22] MEDS: TORSEMIDE 20 MG TABLET (FP) PO SCH (10:27)
[2021-11-22] MEDS: MINERAL OIL/PET HY-PHL TOPICAL OINTMENT 454 GM JAR TP SCH ×2 (10:28→21:37)
[2021-11-22] MEDS: BACITRACIN 15 GM TUBE TOPICAL OINTMENT TP SCH ×2 (10:28→21:38)
[2021-11-22] MEDS ORDERED: TORSEMIDE 20 MG TABLET (FP) PO SCH (11:00)
[2021-11-22] MEDS ORDERED: HEPARIN NA (PORCINE) 5,000 UNITS/ML 1ML VIAL ONE (13:26)
[2021-11-22] MEDS ORDERED: LIDOCAINE HCL 1%, 10 MG/ML (20ML VIAL) ONE (13:26)
[2021-11-22] MEDS ORDERED: ceFAZolin SODIUM 1 GM VIAL ONE (16:26)
[2021-11-22] MEDS ORDERED: LIDOCAINE HCL 1% PRESERVATIVE FREE - 30ML VIAL IJ ONE (16:28)
[2021-11-22] MEDS ORDERED: ceFAZolin SODIUM 1 GM VIAL IVPB ONE (16:28)
[2021-11-22] MEDS ORDERED: ONDANSETRON 4 MG/2 ML VIAL IVPUSH PRN ×2 (16:49→17:15)
[2021-11-22] MEDS ORDERED: SODIUM CHLORIDE 1,000 ML IV SCH (17:00)
[2021-11-22] MEDS ORDERED: CALAMINE 8% TOPICAL LOTION 177 ML BOTTLE TP PRN (17:15)
[2021-11-22] MEDS ORDERED: ALBUTEROL SO4 2.5/IPRATROPIUM 0.5 INH SOL 3 ML VIAL.NEB. NEB PRN (17:15)
[2021-11-22] MEDS ORDERED: DEXTROSE 50%-WATER 25 GM/50 ML DISP.SYRIN IVPUSH PRN (17:15)
[2021-11-22] MEDS: SODIUM CHLORIDE 1,000 ML IV SCH (18:05)
[2021-11-22] MEDS: ALBUMIN HUMAN 25% 12.5 GM/50 ML VIAL IV SCH ×2 (19:47→19:48)
[2021-11-22] MEDS: SENNOSIDES 8.6MG TABLET (FP) PO SCH (21:38)
[2021-11-22] MEDS: APIXABAN 2.5 MG TABLET PO SCH (21:38)
[2021-11-22] MEDS: INSULIN (LEVEMIR) 100 UNITS/ML UNITS SQ SCH (21:38)
[2021-11-22] MEDS ORDERED: APIXABAN 2.5 MG TABLET PO SCH (22:00)
[2021-11-23] MEDS: INSULIN SLIDING SCALE (NOVOLOG) 1 VIAL SQ SCH ×5 (06:51→21:23)
[2021-11-23] MEDS ORDERED: TORSEMIDE 20 MG TABLET (FP) PO SCH (10:00)
[2021-11-23] MEDS: MINERAL OIL/PET HY-PHL TOPICAL OINTMENT 454 GM JAR TP SCH ×2 (10:14→21:24)
[2021-11-23] MEDS: BACITRACIN 15 GM TUBE TOPICAL OINTMENT TP SCH ×2 (10:14→21:23)
[2021-11-23] MEDS: VITAMIN B COMP W-C 1 EA TABLET (NEPHRO-VITE) PO SCH (10:15)
[2021-11-23] MEDS: APIXABAN 2.5 MG TABLET PO SCH ×2 (10:15→21:23)
[2021-11-23] MEDS: MIDODRINE HCL 5 MG TABLET PO SCH ×3 (10:17→19:02)
[2021-11-23 12:22] LABS: HEMATOCRIT 26.6 % (35.4-49); HEMOGLOBIN 8.9 GM/dL (11.7-16.9); MCH 34.5 pg (25.7-33.7); MCHC 33.5 g/dl (32.0-35.9); MEAN CELL VOLUME 102.8 fl (80-96); MEAN PLT VOLUME 8.8 fl (7.5-11.1); PLATELET COUNT 141 10^3/uL (134-434); RBC 2.58 M/mm3 (4.00-5.60); RDW 13.7 % (11.9-15.9); WHITE BLOOD COUNT 8.9 K/mm3 (4.0-10.0)
[2021-11-23 12:36] LABS: CALCIUM 8.1 mg/dL (8.5-10.1)
[2021-11-23 12:46] LABS: BLOOD UREA NITROGEN 87.3 mg/dL (7-18)
[2021-11-23] MEDS ORDERED: SODIUM CHLORIDE 250 ML IV PRN (12:52)
[2021-11-23] MEDS: ALBUMIN HUMAN 25% 12.5 GM/50 ML VIAL IV SCH (17:37)
[2021-11-23] MEDS: SODIUM CHLORIDE 1,000 ML IV SCH (18:55)
[2021-11-23] MEDS: ALBUMIN HUMAN 25% 12.5 GM/50 ML VIAL IVPB SCH ×5 (19:30→19:34)
[2021-11-23] MEDS: SENNOSIDES 8.6MG TABLET (FP) PO SCH (21:23)
[2021-11-23] MEDS: INSULIN (LEVEMIR) 100 UNITS/ML UNITS SQ SCH (21:23)
[2021-11-23] MEDS: MELATONIN 5 MG TABLETS PO PRN (21:23)
[2021-11-24] MEDS: INSULIN SLIDING SCALE (NOVOLOG) 1 VIAL SQ SCH ×4 (06:20→22:19)
[2021-11-24 09:55] LABS: CALCIUM 8.4 mg/dL (8.5-10.1)
[2021-11-24 09:56] LABS: BLOOD UREA NITROGEN 63.1 mg/dL (7-18)
[2021-11-24] MEDS: TORSEMIDE 20 MG TABLET (FP) PO SCH (10:24)
[2021-11-24] MEDS: SILVER SULFADIAZINE 1% TOP CREAM 50 GM JAR TP SCH ×2 (10:24→22:19)
[2021-11-24] MEDS: APIXABAN 2.5 MG TABLET PO SCH ×2 (10:24→22:18)
[2021-11-24] MEDS: MINERAL OIL/PET HY-PHL TOPICAL OINTMENT 454 GM JAR TP SCH ×2 (10:25→22:18)
[2021-11-24] MEDS: BACITRACIN 15 GM TUBE TOPICAL OINTMENT TP SCH ×2 (10:25→22:19)
[2021-11-24] MEDS: MIDODRINE HCL 5 MG TABLET PO SCH (10:25)
[2021-11-24] MEDS: VITAMIN B COMP W-C 1 EA TABLET (NEPHRO-VITE) PO SCH (10:25)
[2021-11-24] MEDS ORDERED: SODIUM CHLORIDE 250 ML IV PRN (15:54)
[2021-11-24] MEDS: SENNOSIDES 8.6MG TABLET (FP) PO SCH (22:18)
[2021-11-24] MEDS: MELATONIN 5 MG TABLETS PO PRN (22:18)
[2021-11-24] MEDS: ATORVASTATIN CA 10 MG TABLET (FP) PO SCH (22:19)
[2021-11-24] MEDS: INSULIN (LEVEMIR) 100 UNITS/ML UNITS SQ SCH (22:19)
[2021-11-25] MEDS: INSULIN SLIDING SCALE (NOVOLOG) 1 VIAL SQ SCH ×4 (06:11→22:08)
[2021-11-25] MEDS ORDERED: EPOETIN ALFA-EPBX 10,000 UNIT/ML VIAL IVPUSH ONE (07:30)
[2021-11-25 10:05] LABS: BLOOD UREA NITROGEN 76.2 mg/dL (7-18); CALCIUM 8.1 mg/dL (8.5-10.1)
[2021-11-25 10:08] LABS: PHOSPHOROUS 4.1 mg/dL (2.5-4.9)
[2021-11-25 10:09] LABS: CREATININE 3.5 mg/dL (0.55-1.3)
[2021-11-25 10:17] LABS: BASO % 0.4 % (0-2.0); EOS % 0.6 % (0-4.5); HEMATOCRIT 23.3 % (35.4-49); HEMOGLOBIN 7.8 GM/dL (11.7-16.9); LYMPH % 10.1 % (8-40); MCH 34.8 pg (25.7-33.7); MCHC 33.5 g/dl (32.0-35.9); MEAN CELL VOLUME 103.9 fl (80-96); MEAN PLT VOLUME 9.1 fl (7.5-11.1); NEUT % 82.9 % (42.8-82.8); PLATELET COUNT 56 10^3/uL (134-434); RBC 2.24 M/mm3 (4.00-5.60); RDW 14.8 % (11.9-15.9); WHITE BLOOD COUNT 7.6 K/mm3 (4.0-10.0)
[2021-11-25] MEDS: TORSEMIDE 20 MG TABLET (FP) PO SCH (10:59)
[2021-11-25] MEDS: VITAMIN B COMP W-C 1 EA TABLET (NEPHRO-VITE) PO SCH (10:59)
[2021-11-25] MEDS: MIDODRINE HCL 5 MG TABLET PO SCH ×2 (10:59→16:28)
[2021-11-25] MEDS: MINERAL OIL/PET HY-PHL TOPICAL OINTMENT 454 GM JAR TP SCH ×2 (11:00→22:10)
[2021-11-25] MEDS: SILVER SULFADIAZINE 1% TOP CREAM 50 GM JAR TP SCH ×2 (11:01→22:10)
[2021-11-25] MEDS: BACITRACIN 15 GM TUBE TOPICAL OINTMENT TP SCH ×2 (11:01→22:09)
[2021-11-25 11:45] LABS: PLATELET ESTIMATE DECREASED
[2021-11-25] MEDS ORDERED: SILVER NITRATE 75% APPLIC STCK 1 PKT EACH TP ONE (12:30)
[2021-11-25] MEDS ORDERED: guaiFENesin 200 MG/10 ML 10 ML UNIT-DOSE CUPS PO PRN (18:26)
[2021-11-25] MEDS: SENNOSIDES 8.6MG TABLET (FP) PO SCH (22:07)
[2021-11-25] MEDS: MELATONIN 5 MG TABLETS PO PRN (22:07)
[2021-11-25] MEDS: INSULIN (LEVEMIR) 100 UNITS/ML UNITS SQ SCH (22:08)
[2021-11-26] MEDS: INSULIN SLIDING SCALE (NOVOLOG) 1 VIAL SQ SCH ×4 (06:27→22:11)
[2021-11-26] MEDS: ALBUMIN HUMAN 25% 12.5 GM/50 ML VIAL IV SCH ×4 (07:00→08:30)
[2021-11-26 08:51] LABS: HEMATOCRIT 22.1 % (35.4-49); HEMOGLOBIN 7.4 GM/dL (11.7-16.9); MCH 34.5 pg (25.7-33.7); MCHC 33.3 g/dl (32.0-35.9); MEAN CELL VOLUME 103.6 fl (80-96); MEAN PLT VOLUME 10.2 fl (7.5-11.1); PLATELET COUNT 40 10^3/uL (134-434); RBC 2.13 M/mm3 (4.00-5.60); RDW 15.2 % (11.9-15.9); WHITE BLOOD COUNT 6.9 K/mm3 (4.0-10.0)
[2021-11-26 09:13] LABS: CALCIUM 8.1 mg/dL (8.5-10.1)
[2021-11-26 09:20] LABS: BLOOD UREA NITROGEN 48.8 mg/dL (7-18); CREATININE 2.6 mg/dL (0.55-1.3)
[2021-11-26] MEDS ORDERED: SODIUM CHLORIDE 250 ML IV PRN (09:34)
[2021-11-26] MEDS ORDERED: MIDODRINE HCL 5 MG TABLET PO SCH (10:00)
[2021-11-26] MEDS: TORSEMIDE 20 MG TABLET (FP) PO SCH (10:14)
[2021-11-26] MEDS: VITAMIN B COMP W-C 1 EA TABLET (NEPHRO-VITE) PO SCH (10:16)
[2021-11-26] MEDS: APIXABAN 2.5 MG TABLET PO SCH (10:22)
[2021-11-26] MEDS: BACITRACIN 15 GM TUBE TOPICAL OINTMENT TP SCH ×2 (10:24→22:08)
[2021-11-26] MEDS: SILVER SULFADIAZINE 1% TOP CREAM 50 GM JAR TP SCH ×2 (10:24→22:11)
[2021-11-26] MEDS: MINERAL OIL/PET HY-PHL TOPICAL OINTMENT 454 GM JAR TP SCH ×2 (10:24→22:05)
[2021-11-26] MEDS: MIDODRINE HCL 5 MG TABLET PO SCH ×2 (14:50→17:12)
[2021-11-26] MEDS: INSULIN (LEVEMIR) 100 UNITS/ML UNITS SQ SCH (22:09)
[2021-11-26] MEDS: SENNOSIDES 8.6MG TABLET (FP) PO SCH (22:10)
[2021-11-27] MEDS ORDERED: DEXTROSE 50%-WATER - 25 GM/50 ML VIAL IVPUSH PRN (05:41)
[2021-11-27] MEDS: MIDODRINE HCL 5 MG TABLET PO SCH ×3 (06:26→16:58)
[2021-11-27] MEDS: INSULIN SLIDING SCALE (NOVOLOG) 1 VIAL SQ SCH ×4 (06:26→22:22)
[2021-11-27] MEDS: BACITRACIN 15 GM TUBE TOPICAL OINTMENT TP SCH ×2 (09:47→22:22)
[2021-11-27] MEDS: MINERAL OIL/PET HY-PHL TOPICAL OINTMENT 454 GM JAR TP SCH ×2 (09:47→22:22)
[2021-11-27] MEDS: SILVER SULFADIAZINE 1% TOP CREAM 50 GM JAR TP SCH ×2 (09:48→22:22)
[2021-11-27] MEDS: VITAMIN B COMP W-C 1 EA TABLET (NEPHRO-VITE) PO SCH (09:48)
[2021-11-27] MEDS: TORSEMIDE 20 MG TABLET (FP) PO SCH (09:48)
[2021-11-27 12:27] LABS: BASO % 0.2 % (0-2.0); EOS % 0.1 % (0-4.5); HEMATOCRIT 24.3 % (35.4-49); LYMPH % 10.6 % (8-40); MCH 34.5 pg (25.7-33.7); MEAN CELL VOLUME 104.8 fl (80-96); MEAN PLT VOLUME 9.9 fl (7.5-11.1); MONO % 9.3 % (3.8-10.2); NEUT % 79.8 % (42.8-82.8); PLATELET COUNT 44 10^3/uL (134-434); RBC 2.32 M/mm3 (4.00-5.60); RDW 16.3 % (11.9-15.9); WHITE BLOOD COUNT 9.1 K/mm3 (4.0-10.0)
[2021-11-27 12:33] LABS: INR 1.68 (0.83-1.09); PROTHROMBIN TIME (PATIENT) 19.4 SEC (9.7-13.0)
[2021-11-27 12:41] LABS: ACTIVATED PTT 32.7 SECONDS (25.2-36.5)
[2021-11-27 12:50] LABS: CHLORIDE 96 mmol/L (98-107); SODIUM 134 mmol/L (136-145)
[2021-11-27 12:54] LABS: ALBUMIN 2.4 g/dl (3.4-5.0); ANION GAP 8 MMOL/L (8-16); BLOOD UREA NITROGEN 68.3 mg/dL (7-18); CALCIUM 8.3 mg/dL (8.5-10.1); CO2 30 mmol/L (21-32); GLUCOSE,RANDOM 253 mg/dL (74-106)
[2021-11-27 12:57] LABS: CREATININE 3.3 mg/dL (0.55-1.3)
[2021-11-27 12:58] LABS: SGOT/AST 16 U/L (15-37)
[2021-11-27 12:59] LABS: BILIRUBIN,TOTAL 1.2 mg/dL (0.2-1); TOT PROT 5.6 g/dl (6.4-8.2)
[2021-11-27 13:00] LABS: ALK PHOS 174 U/L (45-117)
[2021-11-27 13:12] LABS: SGPT/ALT < 6 U/L (13-61)
[2021-11-27] MEDS ORDERED: ACETAMINOPHEN 325 MG TABLET (FP) PO ONE (21:53)
[2021-11-27] MEDS: SENNOSIDES 8.6MG TABLET (FP) PO SCH (22:22)
[2021-11-27] MEDS: INSULIN (LEVEMIR) 100 UNITS/ML UNITS SQ SCH (22:22)
[2021-11-28] MEDS: MIDODRINE HCL 5 MG TABLET PO SCH ×3 (06:07→17:37)
[2021-11-28] MEDS: INSULIN SLIDING SCALE (NOVOLOG) 1 VIAL SQ SCH ×4 (06:10→22:58)
[2021-11-28 09:17] LABS: BASO % 0.4 % (0-2.0); EOS % 0.8 % (0-4.5); HEMATOCRIT 21.9 % (35.4-49); HEMOGLOBIN 7.3 GM/dL (11.7-16.9); LYMPH % 15.5 % (8-40); MCH 34.8 pg (25.7-33.7); MCHC 33.5 g/dl (32.0-35.9); MEAN CELL VOLUME 103.9 fl (80-96); MEAN PLT VOLUME 10.7 fl (7.5-11.1); MONO % 12.2 % (3.8-10.2); NEUT % 71.1 % (42.8-82.8); PLATELET COUNT 53 10^3/uL (134-434); RBC 2.11 M/mm3 (4.00-5.60); RDW 16.5 % (11.9-15.9); WHITE BLOOD COUNT 7.3 K/mm3 (4.0-10.0)
[2021-11-28 09:47] LABS: CHLORIDE 98 mmol/L (98-107); SODIUM 135 mmol/L (136-145)
[2021-11-28 09:49] LABS: GLUCOSE,RANDOM 75 mg/dL (74-106)
[2021-11-28 09:56] LABS: ALK PHOS 176 U/L (45-117); BILIRUBIN,TOTAL 0.9 mg/dL (0.2-1)
[2021-11-28 09:58] LABS: ALBUMIN 2.2 g/dl (3.4-5.0); ANION GAP 7 MMOL/L (8-16); BLOOD UREA NITROGEN 81.5 mg/dL (7-18); CO2 30 mmol/L (21-32)
[2021-11-28 10:01] LABS: CREATININE 3.7 mg/dL (0.55-1.3); SGOT/AST 22 U/L (15-37)
[2021-11-28 10:03] LABS: TOT PROT 5.4 g/dl (6.4-8.2)
[2021-11-28 10:05] LABS: SGPT/ALT < 6 U/L (13-61)
[2021-11-28] MEDS: VITAMIN B COMP W-C 1 EA TABLET (NEPHRO-VITE) PO SCH (10:43)
[2021-11-28] MEDS: TORSEMIDE 20 MG TABLET (FP) PO SCH (10:43)
[2021-11-28] MEDS: BACITRACIN 15 GM TUBE TOPICAL OINTMENT TP SCH ×2 (10:44→22:59)
[2021-11-28] MEDS: SILVER SULFADIAZINE 1% TOP CREAM 50 GM JAR TP SCH ×2 (10:44→22:59)
[2021-11-28] MEDS: MINERAL OIL/PET HY-PHL TOPICAL OINTMENT 454 GM JAR TP SCH ×2 (10:44→23:02)
[2021-11-28] MEDS ORDERED: ACETAMINOPHEN 325 MG TABLET (FP) PO PRN (18:28)
[2021-11-28] MEDS ORDERED: ACETAMINOPHEN 325 MG TABLET (FP) PO ONE (18:28)
[2021-11-28] MEDS: SENNOSIDES 8.6MG TABLET (FP) PO SCH (22:57)
[2021-11-28] MEDS: INSULIN (LEVEMIR) 100 UNITS/ML UNITS SQ SCH (22:58)
[2021-11-28] MEDS: ATORVASTATIN CA 10 MG TABLET (FP) PO SCH (23:01)
[2021-11-29] MEDS: MIDODRINE HCL 5 MG TABLET PO SCH ×3 (06:42→18:00)
[2021-11-29] MEDS: INSULIN SLIDING SCALE (NOVOLOG) 1 VIAL SQ SCH ×4 (06:42→21:46)
[2021-11-29 09:09] LABS: BASO % 0.3 % (0-2.0); EOS % 0.4 % (0-4.5); HEMATOCRIT 23.1 % (35.4-49); HEMOGLOBIN 7.5 GM/dL (11.7-16.9); LYMPH % 15.6 % (8-40); MCH 34.4 pg (25.7-33.7); MCHC 32.5 g/dl (32.0-35.9); MEAN CELL VOLUME 105.7 fl (80-96); MEAN PLT VOLUME 10.9 fl (7.5-11.1); MONO % 13.7 % (3.8-10.2); PLATELET COUNT 58 10^3/uL (134-434); RBC 2.19 M/mm3 (4.00-5.60); RDW 16.9 % (11.9-15.9); WHITE BLOOD COUNT 7.5 K/mm3 (4.0-10.0)
[2021-11-29 09:36] LABS: CALCIUM 8.4 mg/dL (8.5-10.1)
[2021-11-29 09:40] LABS: BILIRUBIN,TOTAL 1.4 mg/dL (0.2-1); CREATININE 2.8 mg/dL (0.55-1.3)
[2021-11-29 09:42] LABS: TOT PROT 5.8 g/dl (6.4-8.2)
[2021-11-29 09:44] LABS: ALBUMIN 2.8 g/dl (3.4-5.0); BLOOD UREA NITROGEN 48.1 mg/dL (7-18)
[2021-11-29 10:29] LABS: ANISOCYTOSIS 2+; MACROCYTOSIS 2+; TARGET CELLS 1+
[2021-11-29] MEDS: VITAMIN B COMP W-C 1 EA TABLET (NEPHRO-VITE) PO SCH (10:50)
[2021-11-29] MEDS: TORSEMIDE 20 MG TABLET (FP) PO SCH ×2 (10:50→12:50)
[2021-11-29] MEDS: SILVER SULFADIAZINE 1% TOP CREAM 50 GM JAR TP SCH ×2 (10:51→21:49)
[2021-11-29] MEDS: MINERAL OIL/PET HY-PHL TOPICAL OINTMENT 454 GM JAR TP SCH ×2 (10:51→21:50)
[2021-11-29] MEDS: BACITRACIN 15 GM TUBE TOPICAL OINTMENT TP SCH ×2 (10:51→21:50)
[2021-11-29] MEDS ORDERED: SODIUM CHLORIDE 250 ML IV PRN (12:24)
[2021-11-29] MEDS: SENNOSIDES 8.6MG TABLET (FP) PO SCH (21:45)
[2021-11-29] MEDS: INSULIN (LEVEMIR) 100 UNITS/ML UNITS SQ SCH (21:46)
[2021-11-30] MEDS: MIDODRINE HCL 5 MG TABLET PO SCH ×2 (06:21→11:31)
[2021-11-30] MEDS: INSULIN SLIDING SCALE (NOVOLOG) 1 VIAL SQ SCH ×4 (06:21→21:11)
[2021-11-30] MEDS ORDERED: EPOETIN ALFA-EPBX 20,000 UNIT/ML VIAL IVPUSH ONE (08:00)
[2021-11-30 08:44] LABS: HEMATOCRIT 22.5 % (35.4-49); HEMOGLOBIN 7.4 GM/dL (11.7-16.9); MCH 34.3 pg (25.7-33.7); MCHC 32.8 g/dl (32.0-35.9); MEAN CELL VOLUME 104.6 fl (80-96); MEAN PLT VOLUME 10.4 fl (7.5-11.1); PLATELET COUNT 71 10^3/uL (134-434); RBC 2.15 M/mm3 (4.00-5.60); RDW 17.2 % (11.9-15.9); WHITE BLOOD COUNT 7.4 K/mm3 (4.0-10.0)
[2021-11-30 09:29] LABS: BLOOD UREA NITROGEN 62.2 mg/dL (7-18)
[2021-11-30 09:30] LABS: CALCIUM 8.6 mg/dL (8.5-10.1)
[2021-11-30 09:31] LABS: PHOSPHOROUS 3.9 mg/dL (2.5-4.9)
[2021-11-30 09:33] LABS: CREATININE 3.4 mg/dL (0.55-1.3)
[2021-11-30] MEDS: VITAMIN B COMP W-C 1 EA TABLET (NEPHRO-VITE) PO SCH (11:29)
[2021-11-30] MEDS: MINERAL OIL/PET HY-PHL TOPICAL OINTMENT 454 GM JAR TP SCH ×2 (11:29→21:11)
[2021-11-30] MEDS: BACITRACIN 15 GM TUBE TOPICAL OINTMENT TP SCH ×2 (11:29→21:11)
[2021-11-30] MEDS: SILVER SULFADIAZINE 1% TOP CREAM 50 GM JAR TP SCH ×2 (11:29→21:11)
[2021-11-30] MEDS: MIDODRINE HCL 2.5 MG TABLET PO SCH (17:13)
[2021-11-30] MEDS: SENNOSIDES 8.6MG TABLET (FP) PO SCH (21:11)
[2021-11-30] MEDS: INSULIN (LEVEMIR) 100 UNITS/ML UNITS SQ SCH (21:11)
[2021-12-01] MEDS ORDERED: DEXTROSE 50%-WATER 25 GM/50 ML DISP.SYRIN IVPUSH ONE (05:38)
[2021-12-01] MEDS ORDERED: DEXTROSE 50%-WATER 25 GM/50 ML DISP.SYRIN ONE (05:42)
[2021-12-01] MEDS: MIDODRINE HCL 2.5 MG TABLET PO SCH ×2 (06:07→12:15)
[2021-12-01] MEDS: INSULIN SLIDING SCALE (NOVOLOG) 1 VIAL SQ SCH ×4 (06:07→21:13)
[2021-12-01] MEDS: VITAMIN B COMP W-C 1 EA TABLET (NEPHRO-VITE) PO SCH (09:50)
[2021-12-01] MEDS: BACITRACIN 15 GM TUBE TOPICAL OINTMENT TP SCH ×2 (11:06→21:13)
[2021-12-01] MEDS: SILVER SULFADIAZINE 1% TOP CREAM 50 GM JAR TP SCH (11:06)
[2021-12-01] MEDS: MINERAL OIL/PET HY-PHL TOPICAL OINTMENT 454 GM JAR TP SCH ×2 (11:06→21:13)
[2021-12-01] MEDS: TORSEMIDE 20 MG TABLET (FP) PO SCH (12:15)
[2021-12-01] MEDS: COLLAGENASE CLOSTRIDIUM HIST. 30 GRAMS TUBE TP SCH (13:23)
[2021-12-01] MEDS: ACETAMINOPHEN 325 MG TABLET (FP) PO PRN (18:45)
[2021-12-01] MEDS: INSULIN (LEVEMIR) 100 UNITS/ML UNITS SQ SCH (21:13)
[2021-12-01] MEDS: SENNOSIDES 8.6MG TABLET (FP) PO SCH (21:14)
[2021-12-01] MEDS: ATORVASTATIN CA 10 MG TABLET (FP) PO SCH (21:16)
[2021-12-02] MEDS: INSULIN SLIDING SCALE (NOVOLOG) 1 VIAL SQ SCH ×4 (06:02→21:41)
[2021-12-02] MEDS ORDERED: SODIUM CHLORIDE 250 ML IV PRN (06:37)
[2021-12-02] MEDS: ALBUMIN HUMAN 25% 12.5 GM/50 ML VIAL IV SCH ×4 (08:00→10:31)
[2021-12-02] MEDS ORDERED: EPOETIN ALFA-EPBX 10,000 UNIT/ML VIAL IVPUSH ONE (08:00)
[2021-12-02 09:06] LABS: BASO % 0.4 % (0-2.0); EOS % 0.7 % (0-4.5); HEMATOCRIT 30.7 % (35.4-49); HEMOGLOBIN 10.2 GM/dL (11.7-16.9); LYMPH % 15.4 % (8-40); MCH 33.3 pg (25.7-33.7); MCHC 33.3 g/dl (32.0-35.9); MEAN PLT VOLUME 10.5 fl (7.5-11.1); MONO % 10.7 % (3.8-10.2); NEUT % 72.8 % (42.8-82.8); PLATELET COUNT 62 10^3/uL (134-434); RBC 3.07 M/mm3 (4.00-5.60); RDW 18.4 % (11.9-15.9); WHITE BLOOD COUNT 6.6 K/mm3 (4.0-10.0)
[2021-12-02 09:57] LABS: CALCIUM 8.4 mg/dL (8.5-10.1)
[2021-12-02 09:58] LABS: BLOOD UREA NITROGEN 55.6 mg/dL (7-18); CREATININE 3.5 mg/dL (0.55-1.3)
[2021-12-02 10:01] LABS: PHOSPHOROUS 4.1 mg/dL (2.5-4.9)
[2021-12-02] MEDS: COLLAGENASE CLOSTRIDIUM HIST. 30 GRAMS TUBE TP SCH (10:49)
[2021-12-02] MEDS: BACITRACIN 15 GM TUBE TOPICAL OINTMENT TP SCH ×2 (10:49→21:33)
[2021-12-02] MEDS: VITAMIN B COMP W-C 1 EA TABLET (NEPHRO-VITE) PO SCH (10:49)
[2021-12-02] MEDS: MINERAL OIL/PET HY-PHL TOPICAL OINTMENT 454 GM JAR TP SCH ×2 (10:49→21:33)
[2021-12-02] MEDS ORDERED: POLYETHYLENE GLYCOL (HEALTHYLAX) 3350 17 GM PACKET PO ONE (17:44)
[2021-12-02] MEDS: SENNOSIDES 8.6MG TABLET (FP) PO SCH (21:32)
[2021-12-03] MEDS: INSULIN SLIDING SCALE (NOVOLOG) 1 VIAL SQ SCH ×4 (06:09→21:16)
[2021-12-03] MEDS: BACITRACIN 15 GM TUBE TOPICAL OINTMENT TP SCH ×2 (10:04→21:16)
[2021-12-03] MEDS: VITAMIN B COMP W-C 1 EA TABLET (NEPHRO-VITE) PO SCH (10:04)
[2021-12-03] MEDS: COLLAGENASE CLOSTRIDIUM HIST. 30 GRAMS TUBE TP SCH (10:04)
[2021-12-03] MEDS: MINERAL OIL/PET HY-PHL TOPICAL OINTMENT 454 GM JAR TP SCH ×2 (10:04→21:16)
[2021-12-03] MEDS: TORSEMIDE 20 MG TABLET (FP) PO SCH (11:44)
[2021-12-03] MEDS: ACETAMINOPHEN 325 MG TABLET (FP) PO PRN (12:38)
[2021-12-03] MEDS: SENNOSIDES 8.6MG TABLET (FP) PO SCH (21:17)
[2021-12-04] MEDS: INSULIN SLIDING SCALE (NOVOLOG) 1 VIAL SQ SCH ×4 (06:14→21:55)
[2021-12-04] MEDS: ACETAMINOPHEN 325 MG TABLET (FP) PO PRN ×3 (06:30→21:51)
[2021-12-04] MEDS: VITAMIN B COMP W-C 1 EA TABLET (NEPHRO-VITE) PO SCH (09:48)
[2021-12-04] MEDS: BACITRACIN 15 GM TUBE TOPICAL OINTMENT TP SCH ×2 (09:49→21:54)
[2021-12-04] MEDS: MINERAL OIL/PET HY-PHL TOPICAL OINTMENT 454 GM JAR TP SCH ×2 (09:49→21:53)
[2021-12-04] MEDS: COLLAGENASE CLOSTRIDIUM HIST. 30 GRAMS TUBE TP SCH (09:49)
[2021-12-04] MEDS: SENNOSIDES 8.6MG TABLET (FP) PO SCH (21:55)
[2021-12-05] MEDS: INSULIN SLIDING SCALE (NOVOLOG) 1 VIAL SQ SCH ×4 (06:36→21:21)
[2021-12-05 09:51] LABS: HEMATOCRIT 28.7 % (35.4-49); HEMOGLOBIN 9.5 GM/dL (11.7-16.9); MCH 33.4 pg (25.7-33.7); MEAN CELL VOLUME 101.1 fl (80-96); MEAN PLT VOLUME 8.9 fl (7.5-11.1); PLATELET COUNT 45 10^3/uL (134-434); RBC 2.84 M/mm3 (4.00-5.60); RDW 18.5 % (11.9-15.9)
[2021-12-05] MEDS ORDERED: SODIUM CHLORIDE 250 ML IV PRN (10:00)
[2021-12-05] MEDS ORDERED: EPOETIN ALFA-EPBX 10,000 UNIT/ML VIAL IVPUSH ONE (10:00)
[2021-12-05 10:25] LABS: BLOOD UREA NITROGEN 56.7 mg/dL (7-18)
[2021-12-05 10:26] LABS: ALBUMIN 2.4 g/dl (3.4-5.0); CALCIUM 8.1 mg/dL (8.5-10.1)
[2021-12-05 10:30] LABS: BILIRUBIN,TOTAL 1.1 mg/dL (0.2-1); CREATININE 3.1 mg/dL (0.55-1.3); PHOSPHOROUS 2.3 mg/dL (2.5-4.9)
[2021-12-05] MEDS: ALBUMIN HUMAN 25% 12.5 GM/50 ML VIAL IV SCH ×3 (10:32→13:28)
[2021-12-05 10:33] LABS: MAGNESIUM 2.3 mg/dL (1.8-2.4)
[2021-12-05 10:39] LABS: TOT PROT 5.2 g/dl (6.4-8.2)
[2021-12-05] MEDS: VITAMIN B COMP W-C 1 EA TABLET (NEPHRO-VITE) PO SCH (12:49)
[2021-12-05] MEDS: MINERAL OIL/PET HY-PHL TOPICAL OINTMENT 454 GM JAR TP SCH ×2 (12:50→21:20)
[2021-12-05] MEDS: BACITRACIN 15 GM TUBE TOPICAL OINTMENT TP SCH ×2 (12:50→21:20)
[2021-12-05] MEDS: COLLAGENASE CLOSTRIDIUM HIST. 30 GRAMS TUBE TP SCH (12:51)
[2021-12-05] MEDS: SENNOSIDES 8.6MG TABLET (FP) PO SCH (21:17)
[2021-12-05] MEDS: MELATONIN 5 MG TABLETS PO PRN (21:17)
[2021-12-05] MEDS: ATORVASTATIN CA 10 MG TABLET (FP) PO SCH (21:20)
[2021-12-06] MEDS: INSULIN SLIDING SCALE (NOVOLOG) 1 VIAL SQ SCH ×4 (06:05→22:31)
[2021-12-06] MEDS: BACITRACIN 15 GM TUBE TOPICAL OINTMENT TP SCH ×2 (09:15→22:35)
[2021-12-06] MEDS: MINERAL OIL/PET HY-PHL TOPICAL OINTMENT 454 GM JAR TP SCH ×2 (09:15→22:35)
[2021-12-06] MEDS: VITAMIN B COMP W-C 1 EA TABLET (NEPHRO-VITE) PO SCH (09:16)
[2021-12-06] MEDS: COLLAGENASE CLOSTRIDIUM HIST. 30 GRAMS TUBE TP SCH (09:16)
[2021-12-06] MEDS: TORSEMIDE 20 MG TABLET (FP) PO SCH (12:00)
[2021-12-06] MEDS: MELATONIN 5 MG TABLETS PO PRN (22:33)
[2021-12-06] MEDS: SENNOSIDES 8.6MG TABLET (FP) PO SCH (22:33)
[2021-12-07] MEDS: INSULIN SLIDING SCALE (NOVOLOG) 1 VIAL SQ SCH ×4 (06:23→21:13)
[2021-12-07] MEDS: ALBUMIN HUMAN 25% 12.5 GM/50 ML VIAL IV SCH ×4 (07:00→08:30)
[2021-12-07] MEDS ORDERED: EPOETIN ALFA-EPBX 10,000 UNIT/ML VIAL IVPUSH ONE (07:00)
[2021-12-07] MEDS ORDERED: SODIUM CHLORIDE 250 ML IV PRN (07:00)
[2021-12-07 09:35] LABS: HEMATOCRIT 29.5 % (35.4-49); HEMOGLOBIN 9.7 GM/dL (11.7-16.9); MCH 33.8 pg (25.7-33.7); MEAN CELL VOLUME 102.3 fl (80-96); MEAN PLT VOLUME 9.8 fl (7.5-11.1); PLATELET COUNT 58 10^3/uL (134-434); RBC 2.88 M/mm3 (4.00-5.60); RDW 19.5 % (11.9-15.9); WHITE BLOOD COUNT 6.8 K/mm3 (4.0-10.0)
[2021-12-07 10:35] LABS: CALCIUM 8.5 mg/dL (8.5-10.1)
[2021-12-07 10:36] LABS: BLOOD UREA NITROGEN 58.6 mg/dL (7-18)
[2021-12-07 10:39] LABS: CREATININE 3.3 mg/dL (0.55-1.3); PHOSPHOROUS 3.2 mg/dL (2.5-4.9)
[2021-12-07 10:40] LABS: BILIRUBIN,TOTAL 1.2 mg/dL (0.2-1); TOT PROT 5.8 g/dl (6.4-8.2)
[2021-12-07 10:48] LABS: ALBUMIN 3.1 g/dl (3.4-5.0)
[2021-12-07] MEDS: COLLAGENASE CLOSTRIDIUM HIST. 30 GRAMS TUBE TP SCH (11:43)
[2021-12-07] MEDS: VITAMIN B COMP W-C 1 EA TABLET (NEPHRO-VITE) PO SCH (11:43)
[2021-12-07] MEDS: MINERAL OIL/PET HY-PHL TOPICAL OINTMENT 454 GM JAR TP SCH ×2 (11:44→21:08)
[2021-12-07] MEDS: BACITRACIN 15 GM TUBE TOPICAL OINTMENT TP SCH ×2 (11:44→21:08)
[2021-12-07] MEDS: SENNOSIDES 8.6MG TABLET (FP) PO SCH (21:08)
[2021-12-08] MEDS: INSULIN SLIDING SCALE (NOVOLOG) 1 VIAL SQ SCH ×4 (06:11→23:48)
[2021-12-08] MEDS: MINERAL OIL/PET HY-PHL TOPICAL OINTMENT 454 GM JAR TP SCH ×2 (10:29→23:48)
[2021-12-08] MEDS: BACITRACIN 15 GM TUBE TOPICAL OINTMENT TP SCH ×2 (10:29→23:44)
[2021-12-08] MEDS: VITAMIN B COMP W-C 1 EA TABLET (NEPHRO-VITE) PO SCH (10:30)
[2021-12-08] MEDS: COLLAGENASE CLOSTRIDIUM HIST. 30 GRAMS TUBE TP SCH (10:30)
[2021-12-08] MEDS: TORSEMIDE 20 MG TABLET (FP) PO SCH (14:00)
[2021-12-08] MEDS ORDERED: SODIUM CHLORIDE 250 ML IV PRN (15:35)
[2021-12-08] MEDS: ATORVASTATIN CA 10 MG TABLET (FP) PO SCH (23:44)
[2021-12-08] MEDS: SENNOSIDES 8.6MG TABLET (FP) PO SCH (23:45)
[2021-12-09] MEDS: INSULIN SLIDING SCALE (NOVOLOG) 1 VIAL SQ SCH ×4 (06:42→23:07)
[2021-12-09] MEDS ORDERED: ACETAMINOPHEN 325 MG TABLET (FP) PO PRN (07:47)
[2021-12-09] MEDS ORDERED: MELATONIN 5 MG TABLETS PO PRN (07:47)
[2021-12-09] MEDS ORDERED: guaiFENesin 200 MG/10 ML 10 ML UNIT-DOSE CUPS PO PRN (07:47)
[2021-12-09] MEDS ORDERED: CALAMINE 8% TOPICAL LOTION 177 ML BOTTLE TP PRN (07:47)
[2021-12-09 08:47] LABS: HEMATOCRIT 32.2 % (35.4-49); HEMOGLOBIN 10.4 GM/dL (11.7-16.9); MCH 33.6 pg (25.7-33.7); MCHC 32.3 g/dl (32.0-35.9); MEAN PLT VOLUME 10.7 fl (7.5-11.1); PLATELET COUNT 65 10^3/uL (134-434); RBC 3.09 M/mm3 (4.00-5.60); RDW 21.2 % (11.9-15.9)
[2021-12-09 09:07] LABS: CHLORIDE 98 mmol/L (98-107); SODIUM 132 mmol/L (136-145)
[2021-12-09 09:10] LABS: CALCIUM 8.8 mg/dL (8.5-10.1)
[2021-12-09 09:11] LABS: BLOOD UREA NITROGEN 59.8 mg/dL (7-18); CO2 25 mmol/L (21-32); GLUCOSE,RANDOM 206 mg/dL (74-106)
[2021-12-09 09:14] LABS: CREATININE 3.4 mg/dL (0.55-1.3)
[2021-12-09 09:17] LABS: ANION GAP 9 MMOL/L (8-16)
[2021-12-09] MEDS: MINERAL OIL/PET HY-PHL TOPICAL OINTMENT 454 GM JAR TP SCH ×2 (09:29→23:09)
[2021-12-09] MEDS: BACITRACIN 15 GM TUBE TOPICAL OINTMENT TP SCH ×2 (09:29→23:10)
[2021-12-09] MEDS: VITAMIN B COMP W-C 1 EA TABLET (NEPHRO-VITE) PO SCH (09:29)
[2021-12-09] MEDS: COLLAGENASE CLOSTRIDIUM HIST. 30 GRAMS TUBE TP SCH (09:29)
[2021-12-09] MEDS ORDERED: EPOETIN ALFA-EPBX 10,000 UNIT/ML VIAL IVPUSH ONE (10:00)
[2021-12-09] MEDS ORDERED: SENNOSIDES 8.6MG TABLET (FP) PO SCH (22:00)
[2021-12-10] MEDS: INSULIN SLIDING SCALE (NOVOLOG) 1 VIAL SQ SCH ×3 (06:43→16:46)
[2021-12-10] MEDS: MINERAL OIL/PET HY-PHL TOPICAL OINTMENT 454 GM JAR TP SCH (09:58)
[2021-12-10] MEDS: COLLAGENASE CLOSTRIDIUM HIST. 30 GRAMS TUBE TP SCH (09:58)
[2021-12-10] MEDS: BACITRACIN 15 GM TUBE TOPICAL OINTMENT TP SCH (09:59)
[2021-12-10] MEDS: VITAMIN B COMP W-C 1 EA TABLET (NEPHRO-VITE) PO SCH (10:00)
[2021-12-10] MEDS ORDERED: TORSEMIDE 20 MG TABLET (FP) PO SCH (10:00)
[2021-12-10 15:06] VITALS: PULSE 73; TEMP 98.2
[2021-12-10 15:07] VITALS: BP 150/55
[2021-12-12] MEDS ORDERED: ATORVASTATIN CA 10 MG TABLET (FP) PO SCH (22:00)
== END 2021-12-10 18:00 | DRG 871 ==
LOC: JER 08:43 → JERBED 09:49 → JICU 18:08 → J8W 11-16 18:58 → J4S 11-18 18:56 → J7W 12-08 19:55
PROVIDERS: ADMIT Family Medicine; ATTEND Family Medicine
PROC: 05HM33Z Insertion of Infusion Device into Right Internal Jugular Vein, Percutaneous Approach (ICD-10-PCS; principal; 2021-11-11)
PROC: 5A1D70Z Performance of Urinary Filtration, Intermittent, Less than 6 Hours Per Day (ICD-10-PCS; 2021-11-18)
PROC: 02H633Z Insertion of Infusion Device into Right Atrium, Percutaneous Approach (ICD-10-PCS; 2021-11-22)
PROC: B548ZZA Ultrasonography of Superior Vena Cava, Guidance (ICD-10-PCS; 2021-11-22)
PROC: 0WP930Z Removal of Drainage Device from Right Pleural Cavity, Percutaneous Approach (ICD-10-PCS; 2021-12-09)
DX: A41.9 Sepsis, unspecified organism (principal); I50.23 Acute on chronic systolic (congestive) heart failure; R65.21 Severe sepsis with septic shock; N18.6 End stage renal disease; N17.9 Acute kidney failure, unspecified; R64 Cachexia; E87.2 Acidosis; N39.0 Urinary tract infection, site not specified; E87.1 Hypo-osmolality and hyponatremia; I13.2 Hypertensive heart and chronic kidney disease with heart failure and with stage 5 chronic kidney disease, or end stage renal disease; E11.52 Type 2 diabetes mellitus with diabetic peripheral angiopathy with gangrene; I96 Gangrene, not elsewhere classified; L97.129 Non-pressure chronic ulcer of left thigh with unspecified severity; I25.10 Atherosclerotic heart disease of native coronary artery without angina pectoris; Z95.1 Presence of aortocoronary bypass graft; Z79.01 Long term (current) use of anticoagulants; E78.5 Hyperlipidemia, unspecified; Z79.4 Long term (current) use of insulin; E87.5 Hyperkalemia; I48.0 Paroxysmal atrial fibrillation; N40.0 Benign prostatic hyperplasia without lower urinary tract symptoms; R00.1 Bradycardia, unspecified; R77.8 Other specified abnormalities of plasma proteins; E11.22 Type 2 diabetes mellitus with diabetic chronic kidney disease; D53.9 Nutritional anemia, unspecified; Z68.26 Body mass index [BMI] 26.0-26.9, adult; B95.2 Enterococcus as the cause of diseases classified elsewhere; D69.6 Thrombocytopenia, unspecified; E11.649 Type 2 diabetes mellitus with hypoglycemia without coma; E11.42 Type 2 diabetes mellitus with diabetic polyneuropathy; D63.8 Anemia in other chronic diseases classified elsewhere; R13.10 Dysphagia, unspecified; I95.1 Orthostatic hypotension; L89.159 Pressure ulcer of sacral region, unspecified stage; R63.0 Anorexia
CPT/HCPCS: 32552; 36415; 36430; 36600; 70450-TC; 71045-TC-FY; 71046-TC-FY; 74230-TC-FY; 76856-TC; 80048; 80053; 80061; 80076; 81003; 82272; 82550; 82607; 82728; 82803; 82962; 83010; 83540; 83550; 83605; 83615; 83735; 83880; 84100; 84439; 84443; 84484; 85025; 85027; 85045; 85379; 85384; 85610; 85730; 86705; 86803; 86850; 86900; 86901; 86922; 87040; 87070; 87086; 87186; 87205; 87340; 87517; 87804; 87807; 92611-GN; 93005; 93010; 93880-TC; 93971-TC; 94640; 94760; 97116-GP; 97162-GP; 99291; C9803-CS; E0186; G0480; J1644; P9047; P9058; Q5106; U0003; U0005

== ENCOUNTER 2021-12-19 13:44 | Emergency (ER) | payer OTHER ==
[2021-12-19 14:03] VITALS: BMI 23.8
[2021-12-19] MEDS ORDERED: ASPIRIN 81 MG CHEWABLE TABLETS PO ONE (15:26)
[2021-12-19] MEDS ORDERED: ASPIRIN 325 MG TABLET ONE (15:27)
[2021-12-19 16:04] LABS: BASO % 0.2 % (0-2.0); EOS % 0.1 % (0-4.5); HEMATOCRIT 32.6 % (35.4-49); HEMOGLOBIN 10.9 GM/dL (11.7-16.9); LYMPH % 7.1 % (8-40); MCH 33.9 pg (25.7-33.7); MCHC 33.3 g/dl (32.0-35.9); MEAN CELL VOLUME 101.9 fl (80-96); MEAN PLT VOLUME 9.3 fl (7.5-11.1); MONO % 7.2 % (3.8-10.2); NEUT % 85.4 % (42.8-82.8); PLATELET COUNT 109 10^3/uL (134-434); RDW 20.2 % (11.9-15.9); WHITE BLOOD COUNT 8.9 K/mm3 (4.0-10.0)
[2021-12-19 16:25] LABS: CALCIUM 8.6 mg/dL (8.5-10.1)
[2021-12-19 16:26] LABS: ALBUMIN 2.9 g/dl (3.4-5.0); BLOOD UREA NITROGEN 49.7 mg/dL (7-18)
[2021-12-19 16:27] LABS: INR 1.38 (0.83-1.09); PROTHROMBIN TIME (PATIENT) 15.9 SEC (9.7-13.0)
[2021-12-19 16:29] LABS: CREATININE 3.8 mg/dL (0.55-1.3)
[2021-12-19 16:30] LABS: ACTIVATED PTT 30.1 SECONDS (25.2-36.5); TOT PROT 6.2 g/dl (6.4-8.2)
[2021-12-19 16:36] LABS: BILIRUBIN,TOTAL 1.2 mg/dL (0.2-1)
[2021-12-19 16:41] LABS: LACTIC ACID 2.6 mmol/L (0.4-2.0)
[2021-12-19 16:48] LABS: N-TERMINAL BNP 81578.7 pg/ml (5-450)
[2021-12-19] MEDS ORDERED: DEXTROSE 50%-WATER - 25 GM/50 ML VIAL IVPUSH ONE (16:51)
[2021-12-19] MEDS ORDERED: SODIUM CHLORIDE 0.9% 500 ML INFUS.BAG IV ONE (16:52)
[2021-12-19] MEDS ORDERED: INSULIN REGULAR HUMAN 100 UNITS/ML *VIAL IVPUSH ONE (16:54)
[2021-12-19] MEDS ORDERED: DEXTROSE 50%-WATER 25 GM/50 ML DISP.SYRIN ONE (16:57)
[2021-12-19 20:28] VITALS: BP 157/74; PULSE 74
[2021-12-19 21:14] VITALS: TEMP 97.8
== END 2021-12-19 21:27 | disposition short-term general hospital (02) ==
LOC: JER 13:44
PROC: 3E033GC Introduction of Other Therapeutic Substance into Peripheral Vein, Percutaneous Approach (ICD-10-PCS; principal; 2021-12-19)
DX: R10.32 Left lower quadrant pain (principal); I50.9 Heart failure, unspecified; R94.31 Abnormal electrocardiogram [ECG] [EKG]
CPT/HCPCS: 36415; 71045-TC-FY; 80053; 82550; 83605; 83690; 83880; 84484; 85025; 85610; 85730; 86850; 86900; 86901; 93005; 93010; 99291; 99292; C9803-CS; U0003; U0005